=== PATIENT | female | born 1950 | race Caucasian/White ===

== ENCOUNTER 2018-04-15 01:10 | Outpatient (CLI) | payer MEDICARE, SELFPAY ==
--- NOTE | 2018-04-15 10:35 | MERGE_ITS ---
*[facility]* *[facility]* [address] [place] [address] Date of study: 04/15/2018 Transthoracic Echocardiography M-mode, complete 2D, complete spectral Doppler, and color Doppler *STUDY CONCLUSIONS* Summary: 1. Left ventricle: The cavity size was normal. Systolic function was normal. The estimated ejection fraction was 55-60%. 2. Aortic valve: There was mild regurgitation. 3. Mitral valve: There was mild regurgitation. 4. Right ventricle: The cavity size was normal. Wall thickness was normal. Systolic function was normal. 5. Atrial septum: No defect or patent foramen ovale was identified. 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 Significant septal excursion. 6. Pulmonary arteries: The main pulmonary artery was normal-sized. Pulmonary systolic pressure was in the range of 20mm Hg to 30mm Hg. 7. Probable patent ductus arteriosus: Small. Shunt flow was left to right. 8. Inferior vena cava: The vessel was stenotic and normal in size. The respirophasic diameter changes were in the normal range (greater than or equal to 50%), consistent with normal central venous pressure. *PATIENT PRESENTATION* Height: 149.9cm ((59in) ) S/D Pressure: 111 / 61 Weight: 46kg ((101.2lb) ) BSA: 1.39m^2 Test start time: 10:40 AM. Test stop time: 11:30 AM. ORDERING Mehran Mathis MD REFERRING Mehran Mathis MD PERFORMING Unknown PERFORMING [facility] TESTER/LIFT TRUCKER RT Lora (R)(CT), [facility] REFERRING Darrin Ferrara *PROCEDURE DATA* Procedure information: The patient was identified by two identifiers. This study was interpreted by [facility]. Pertinent images and digital data are archived for permanent storage and are available for subsequent review. No prior study was available for comparison. Study status: Routine. Transthoracic echocardiography. M-mode, complete 2D, complete spectral Doppler, and color Doppler. A Transthoracic Echocardiogram was performed. Scanning was performed from the parasternal, apical, subcostal, and suprasternal notch acoustic windows. Images were obtained using an [id number] cardiac ultrasound machine. Image quality was good. Study completion: The patient tolerated the procedure well. History: PMH: Small patent ductus arteriosus. *CARDIAC ANATOMY* Left ventricle: The cavity size was normal. Systolic function was normal. The estimated ejection fraction was 55-60%. The tissue Doppler parameters were normal. Diastolic parameters were normal. There was no evidence of elevated ventricular filling pressure by Doppler parameters. Aortic valve: Trileaflet. Doppler: There was no stenosis. There was mild regurgitation. VTI ratio of LVOT to aortic valve: 0.67. Valve area (VTI): 2.1cm^2. Indexed valve area (VTI): 1.5cm^2/m^2. Peak velocity ratio of LVOT to aortic valve: 0.69. Valve area (Vmax): 2.1cm^2. Indexed valve area (Vmax): 1.5cm^2/m^2. Mean velocity ratio of LVOT to aortic valve: 0.67. Valve area (Vmean): 2.1cm^2. Indexed valve area (Vmean): 1.5cm^2/m^2. Mean gradient (S): 3.2mm Hg. Peak gradient (S): 5.9mm Hg. Aorta: Aortic root: The aortic root was at upper normal limits. Ascending aorta: The ascending aorta was normal in size. Mitral valve: Doppler: There was no evidence for stenosis. There was mild regurgitation. Valve area by pressure half-time: 2.7cm^2. Indexed valve area by pressure half-time: 2cm^2/m^2. Left atrium: The atrium was normal in size. Atrial septum: No defect or patent foramen ovale was identified. 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 Significant septal excursion. Right ventricle: The cavity size was normal. Wall thickness was normal. Systolic function was normal. Pulmonic valve: Doppler: There was no evidence for stenosis. There was mild regurgitation. Peak gradient (S): 2.3mm Hg. Tricuspid valve: Doppler: There was mild regurgitation. Pulmonary artery: The main pulmonary artery was normal-sized. Pulmonary systolic pressure was in the range of 20mm Hg to 30mm Hg. Probable patent ductus arteriosus: Small. Shunt flow was left to right. Right atrium: The atrium was normal in size. Pericardium: There was no pericardial effusion. Systemic veins: Inferior vena cava: Well visualized. The vessel was stenotic and normal in size. The respirophasic diameter changes were in the normal range (greater than or equal to 50%), consistent with normal central venous pressure. Baseline ECG: Normal sinus rhythm. Measurements Left ventricle Value Reference LV ID, ED, PLAX 4.2 cm 3.5 - 6.0 LV ID, ES, PLAX 3.0 cm 2.1 - 4.0 LV PW thickness, ED, PLAX 0.7 cm LV end-diastolic volume, 1-p A2C 47 ml LV ejection fraction, 1-p A2C 53 % LV end-diastolic volume, 1-p A4C 46 ml LV ejection fraction, 1-p A4C 58 % LV e', lateral 0.135 m/sec LV E/e', lateral 5 LV e', medial 0.057 m/sec LV E/e', medial 11 LV e', average 0.096 m/sec LV E/e', average 7 Ventricular septum Value Reference IVS thickness, ED, PLAX 0.7 cm LVOT Value Reference LVOT ID, A-P 2.0 cm LVOT area 3.1 cm^2 LVOT peak velocity, S 0.83 m/sec LVOT mean velocity, S 0.57 m/sec LVOT VTI, S 17.4 cm LVOT peak gradient, S 2.8 mm Hg LVOT mean gradient, S 1.5 mm Hg Stroke volume (SV), LVOT DP 54 ml Stroke index (SV/bsa), LVOT DP 39 ml/m^2 Aortic valve Value Reference Aortic valve peak velocity, S 1.2 m/sec Aortic valve mean velocity, S 0.85 m/sec Aortic valve VTI, S 26.0 cm Aortic mean gradient, S 3.2 mm Hg Aortic peak gradient, S 5.9 mm Hg VTI ratio, LVOT/AV 0.67 Aortic valve area, VTI 2.1 cm^2 Velocity ratio, peak, LVOT/AV 0.69 Aortic valve area, peak velocity 2.1 cm^2 Velocity ratio, mean, LVOT/AV 0.67 Aortic valve area, mean velocity 2.1 cm^2 Aortic valve area/bsa, mean velocity 1.5 cm^2/m^2 Aorta Value Reference Aortic root ID, ED 3.1 cm Ascending aorta ID, A-P, S 2.9 cm RVOT Value Reference RVOT VTI, S 13.9 cm Left atrium Value Reference LA ID, A-P, ES 2.2 cm LA ID/bsa, A-P 1.6 cm/m^2 <=2.2 LA area, ES, A4C 13.9 cm^2 8.8 - 23.4 LA area, ES, A2C 15 cm^2 LA volume/bsa, ES, 1-p A4C 26 ml/m^2 LA volume, ES, 2-p 36 ml LA volume/bsa, ES, 2-p 26 ml/m^2 LA/aortic root ratio 0.69 Mitral valve Value Reference Mitral E-wave peak velocity 0.64 m/sec Mitral A-wave peak velocity 0.85 m/sec Mitral deceleration time (H) 278 ms 150 - 230 Mitral pressure half-time 81 ms Mitral E/A ratio, peak 0.75 Mitral valve area, PHT, DP 2.7 cm^2 Pulmonary veins Value Reference Pulmonary vein peak velocity, S 0.52 m/sec Pulmonary vein peak velocity, D 0.3 m/sec Pulmonary vein velocity ratio, peak, 1.71 S/D Pulmonary vein A-wave reversal peak 0.98 m/sec velocity Tricuspid valve Value Reference Tricuspid regurg peak velocity 2.3 m/sec Tricuspid peak RV-RA gradient 20.8 mm Hg Right atrium Value Reference RA area, ES, A4C 9.6 cm^2 8.3 - 19.5 Pulmonic valve Value Reference Pulmonic peak gradient, S 2.3 mm Hg Legend: (L) and (H) drake values outside specified reference range. I have personally reviewed the images and have reviewed and edited the reported findings. Electronically signed by Billy Del Castillo MD 04/15/2018 14:20
== END 2018-04-15 01:11 ==
PROVIDERS: PCP Physician Assistant Medical; Visit Provider Internal Medicine
DX: R06.02 Shortness of breath (principal); Q25.0 Patent ductus arteriosus; I08.0 Rheumatic disorders of both mitral and aortic valves; I25.3 Aneurysm of heart
CPT/HCPCS: 93306

== ENCOUNTER 2018-05-07 09:02 | Outpatient (CLI) | payer MEDICARE, MEDICAID, SELFPAY ==
[2018-05-07 10:35] LABS: Absolute Basophil Count 0.04 k/cumm (0.0-0.2); Absolute Eosinophil Count 0.41 k/cumm (0.0-0.7); Absolute Lymphocyte Count 1.84 k/cumm (1.2-3.4); Absolute Monocyte Count 0.35 k/cumm (0.11-0.7); Absolute Neutrophil Count 2.19 k/cumm (1.2-6.7); Basophils % 0.8; Eosinophils % 8.5; HCT 41.1 % (36.0-46.0); Lymphocytes % 38.1; Mean Corp. HGB Concentration 31.6 g/dL (32.0-36.0); Mean Corpuscular Hemoglobin 27.8 pg (27.0-33.0); Mean Corpuscular Volume 87.8 fL (80-95); Mean Platelet Volume 9.1 fL (8.0-11.0); Monocytes % 7.2; Neutrophils % 45.4; Platelet Count 213 x1000/uL (130-400); RBC 4.68 m/cumm (4.00-5.20); RBC Distribution Width 14.2 % (11.7-14.6); White Blood Cell Count 4.83 k/cumm (4.4-10.8)
[2018-05-08 10:23] LABS: IgG 1212 mg/dL (610-1616)
[2018-05-08 11:06] LABS: IgE 10 IU/ml (<158)
== END 2018-05-07 09:22 ==
PROVIDERS: PCP Physician Assistant Medical; Visit Provider Internal Medicine Pulmonary Disease
DX: J18.9 Pneumonia, unspecified organism (principal)
CPT/HCPCS: 36415; 82784; 82785; 85025

== ENCOUNTER 2018-10-04 19:33 | Emergency (ER) | payer MEDICARE, SELFPAY ==
[2018-10-04] VITALS (11 sets, daily range): BP systolic 127–140; BP diastolic 60–79; PULSE 79–97; RESP 13–24; TEMP 37.1; O2SAT 87–99
--- NOTE | 2018-10-04 19:35 | DI.RAD_ITS ---
SYMPTOM/DIAGNOSIS: SOB FRONTAL AND LATERAL CHEST: Comparison is made with 04/03/18. The heart size and pulmonary vasculature are within normal limits. There is diffuse chronic pulmonary fibrotic change noted. No findings to suggest a superimposed pneumonia or congestive heart failure are seen. No effusions or pneumothoraces are identified. There are again seen surgical clips in the upper abdomen. Degenerative changes are seen in the spine. IMPRESSION: No acute pulmonary process.
[2018-10-04] MEDS: traMADol 50 MG TAB 100 MG PO (20:42)
[2018-10-04] MEDS: Ketorolac 30 MG/ML VIAL 15 MG IVP (20:42)
[2018-10-04] MEDS: methylPREDNISolone SUCC 125 MG VIAL IVP (20:42)
[2018-10-04] MEDS: Albuterol/Ipratropium 3 ML UPD VIAL UPD (20:42)
[2018-10-04 20:44] LABS: BE (Venous) 6.1 mmol/L (-3-3); HCO3 (Venous) 31 mmol/L (22-28); O2 Sat (Venous) 33 % (70-80); TCO2 (Venous) 29 mmol/L (22-29); pCO2 (Venous) 53 mm/Hg (34-47); pH (Venous) 7.38 (7.32-7.43); pO2 (Venous) 21 mm/Hg (28-44)
--- NOTE | 2018-10-04 20:58 | W.ED.GENAD ---
Discharge Plan Disposition Patient Disposition: [facility] Condition: Good Discharge Details Chief Complaint: RespSymp Clinical Impression: Chest pain, Pulmonary fibrosis Primary Care Provider: Chloe Barrett ED Provider: Melquiades Rogers Home Meds and New Rx's Prescriptions: No Action tramadol 50 MG tablet 100 mg PO TID RF: 0 ProAir HFA 8.5 GM HFA aerosol inhaler 2 puff Inhalation Q4H PRN PRN (Reason: wheezing/dyspnea) Qty: 1 RF: 0 benzonatate 100 MG capsule 100 mg PO TID PRNQty: 30 RF: 1 Medical Decision Making This is a 68-year-old female with a past medical history of gastric bypass surgery, secondhand smoke, who presents today for evaluation of pleuritic chest pain, cough, and shortness of breath. Cough is been present for the last for 4 days, no evidence of hemoptysis, she does have productive green sputum. Her chest pain started 1 hour ago with associated shortness of breath and pleuritic chest pain. It is not exertional. She feels like there is a white like pressure on her chest. Interestingly though vital signs are very normal, and physical exam is relatively benign. No focal reproducible chest pain. No radiation of the arms or neck. EKG shows no significant changes however there is minimal ST elevation in V1 and V2 she does appear to be present on prior EKG, however there may be slight increase on today's EKG. With the patients typical clinical history, we will get a CT angiogram to rule out dissection versus PE. We will evaluate for pneumonia, formal laboratory workup and reassess. We will also treat for a mild reactive airway exacerbation with Solu-Medrol and breathing treatments. 1 AM Chest x-ray has returned shows no evidence of acute process, there is some interstitial and reticular opacities but no other significant abnormalities. Out of concern with the patient's persistent symptoms, her notable pleuritic chest pain, and her clinical symptomatology I did get a CT angiogram to rule out PE or dissection. CT angiogram results have returned and demonstrates no acute process, no evidence of PE, acute pneumonia, or dissection. There are chronic reticular opacities noted, however in discussion with the radiologist this is a chronic etiology with no acute infectious component. After breathing treatment and Solu-Medrol the patient had minimal improvement of her symptoms. We then elected to give her a nitroglycerin this completely resolved her symptoms of chest pain, chest heaviness, and significant pleuritic chest pain. This certainly does increase the differential for a cardiac etiology for her symptoms. Esophageal spasm is possible but I feel slightly less likely. Cardiac risk factors for the patient do include notable secondhand smoking, she does appear to have undiagnosed hypertension, which denies a history of high cholesterol or diabetes. Her history is also positive for cardiac disease. A repeat troponin and EKG were both performed at the 4-hour drake, and troponin is normal, EKG continues to show slight biphasic component in V2, does not appear typical of Wellons. I did contact [facility] cardiology, Dr. Daily, and discussed the case with him. He personally reviewed the EKG findings and we discussed the entirety of the patient's laboratory workup. He feels that the patient would certainly benefit from serial troponins, and provocative stress testing. I contacted him since we do not have any beds here, however unfortunately he states that [facility] is unable to accept this patient for serial troponins at this time. He does recommend aspirin, and prompt contact if her troponins change or her chest pain status changes. 1: 20 a.m. So far we have contacted [facility], [facility], [facility], [facility], and [facility], none of which are able or willing to accept the patient at this time. Family lives in [place] and is requesting something closer to [facility] and [facility]. will recheck to [facility] and [place]. 1:37 AM Discussed the case with Dr. Naidu at [facility], he graciously accepted the patient for admission. Patient will be sent via [facility] to [place]. Through shared decision making process we have agreed to hold off on the heparin for the time being, she is chest pain-free, with 2- troponins. I have extensively reviewed the treatment plan with the patient. I have addressed all patient concerns at this time. I have also discussed the plan with the admitting physician and they agree with the current assessment and plan and have agreed to assume responsibility for the patient. All parties demonstrate verbal understanding and agreement with our assessment and plan at this time. EKG 20: 23 Rate 79, intervals normal, sinus rhythm, minimal 1 mm elevation in V1 and V2, no Q waves, no T wave inversion, no evidence of STEMI or ST depressions. Prior EKG from 04/03/18 demonstrates similar findings. EKG 00: 14 Rate 74, intervals normal, sinus rhythm, persistent [address] elevation present in V1 and V2, T wave in V2 and V3 no appear to be mildly biphasic. No evidence of deep inversions suggestive of Wellen syndrome. Potassium is normal and I doubt U wave. No Q waves, no T wave inversions. CXR Findings: Lungs: Redemonstration of prominent interstitial/reticular opacities most compatible with chronic interstitial lung disease. No evidence of pneumonia, pulmonary vascular congestion, or pulmonary edema. Pleural space: No pneumothorax. No sizable pleural effusion. Heart/Mediastinum: No cardiomegaly. Upper abdomen: Surgical clips in the left upper quadrant of the abdomen. Cholecystectomy. Bones/joints: Unremarkable. Impression: Redemonstration of prominent interstitial/reticular opacities most compatible with chronic interstitial lung disease. No evidence of pneumonia, pulmonary vascular congestion, or pulmonary edema. Dictated and Authenticated by: Jemal Pitt MD. CTA Chest FINDINGS: Pulmonary arteries: No acute pulmonary embolus. Aorta: No aortic aneurysm. No aortic dissection. Lungs: Diffuse subpleural interstitial densities and intralobular septal thickening . There are also reticular opacities and small nodules peripherally. Pleural space: Normal. No pneumothorax. No pleural effusion. Heart: No cardiomegaly. No pericardial effusion. Lymph nodes: Unremarkable. No enlarged lymph nodes. Bones/joints: Unremarkable. No acute fracture. Soft tissues: Unremarkable. IMPRESSION: No acute pulmonary embolus. Dictated and Authenticated by: Jemal Pitt MD. ECHO Date of study: 04/15/2018 Transthoracic Echocardiography M-mode, complete 2D, complete spectral Doppler, and color Doppler *STUDY CONCLUSIONS* Summary: 1. Left ventricle: The cavity size was normal. Systolic function was normal. The estimated ejection fraction was 55-60%. 2. Aortic valve: There was mild regurgitation. 3. Mitral valve: There was mild regurgitation. 4. Right ventricle: The cavity size was normal. Wall thickness was normal. Systolic function was normal. 5. Atrial septum: No defect or patent foramen ovale was identified. 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 Significant septal excursion. 6. Pulmonary arteries: The main pulmonary artery was normal-sized. Pulmonary systolic pressure was in the range of 20mm Hg to 30mm Hg. 7. Probable patent ductus arteriosus: Small. Shunt flow was left to right. 8. Inferior vena cava: The vessel was stenotic and normal in size. The respirophasic diameter changes were in the normal range (greater than or equal to 50%), consistent with normal central venous pressure. HPI General Date/Time Provider Initiated Documentation: 10/04/18 19:35. HPI Narrative: This is a 68-year-old female with a past medical history of reactive airway disease, gastric bypass surgery, notable secondhand smoke exposure, who presents today for evaluation of chest pain, shortness of breath, pleuritic chest pain, and cough for the last 4 days with productive green sputum. Shortness of breath and pleuritic chest pain all started 1 hour ago. She denies any hemoptysis with a cough. She denies any exertional component to her chest pain. She does state that she feels like there is a heavy weight on her chest. She denies any history of cardiac disease. She denies any history of PE. Denies PE risk factors such as recent long car rides, immobilization, recent surgery, prior history of DVT or PE, family history of PE or DVT, morbid obesity, exogenous estrogen and smoking, hemoptysis, history of cancer. The patient does have nebulizer at home but she has not taken this. Patient does admit to mild achiness throughout as well as very mild headache, but has not yet taken her tramadol for the night. The patient denies any headache red flags of worst headache of life, thunderclap headache, neck pain, fever, chills, concerning family history of polycystic kidney disease, Marfan syndrome, Isma-Danlos syndrome, abdominal aortic aneurysm, aortic dissection, or intracranial aneurysm. Patient has no other complaints at this time. No other modifying factors. Review of systems is negative for vomiting, diarrhea, rash, fever, chills, numbness, tingling, weakness, vision changes. Related Data Home Medications Medication Instructions Recorded Confirmed tramadol 100 mg PO TID 03/28/17 10/04/18 ProAir HFA 2 puff INHALATION Q4H PRN PRN #1 10/02/17 10/04/18 hfa.aer.ad benzonatate 100 mg PO TID PRN #30 capsule 04/04/18 10/04/18 Previous Rx's Medication Instructions Recorded ProAir HFA 2 puff INHALATION Q4H PRN PRN #1 10/02/17 hfa.aer.ad benzonatate 100 mg PO TID PRN #30 capsule 04/04/18 Allergies Allergy/AdvReac Type Severity Reaction Status Date / Time Sulfa (Sulfonamide Allergy Severe throat Unverified 04/03/18 15:19 Antibiotics) swelling/can't breath General Stated Complaint: RespSymp JAMIE: 3 Review of Systems Review of Systems All systems reviewed & are unremarkable except as noted in HPI and below PFSH Social History Smoking and Tabacco status: Never Exam Narrative Exam Narrative: 1.Const: Well-nourished, Well-developed, appearing stated age 2.Eyes: PERRL, no conjunctival injection, and symmetrical lids. 3.ENT: Atraumatic external nose and ears. Moist MM. Neck: Symmetric, trachea midline, No thyromegaly. 4.CVS: +S1/S2, No murmurs or gallops. Peripheral pulses 2+ and equal in all extremities. Brisk capillary refill in all extremities. 5.RESP: Unlabored respiratory effort. Clear to auscultation bilaterally. No wheezes rales or rhonchi. Notable pain with inspiration 6.GI: Soft, Nontender/Nondistended, No hepatosplenomegaly. No guarding or rebound. 7.MSK: Normocephalic/Atraumatic, Extremities w/o deformity or ttp No cyanosis or clubbing, Normal movement of all extremities, no significant calf tenderness. No pitting edema. 8.Skin: Warm, Dry. No rashes or lesions. 9.Neuro: personal trainer II-XII grossly intact. Sensation grossly intact, no focal neurologic deficits. 10.Psych: (AAO) x3. Appropriate mood and affect Course Vital Signs Temperature 37.1 C 10/04/18 19:35 Pulse 79 10/04/18 19:35 Respiratory Rate 18 10/04/18 19:35 Blood Pressure 140/64 10/04/18 19:35 Pulse Oximetry 99 10/04/18 19:35 Temperature 37.1 C 10/04/18 19:35 Temperature Source Temporal Artery Scan 10/04/18 19:35 Pulse 79 10/04/18 19:35 Respiratory Rate 18 10/04/18 19:35 Respiratory Effort 10/04/18 19:38 Respiratory Depth Normal 10/04/18 19:38 Blood Pressure 140/64 10/04/18 19:35 Blood Pressure Position Sitting 10/04/18 19:35 Pulse Oximetry 99 10/04/18 19:35 Oxygen Delivery Method Room Air 10/04/18 19:35 Oxygen Flow Rate 0 10/04/18 19:35 Lab/Test Results Lab/Test Results: 10/04/18 19:38 Nasopharynx Influenza Types A,B Antigen - Final Laboratory Tests Range/Units 10/04/18 20:35 VBG pH (7.32-7.43) 7.38 VBG pCO2 (34-47) mm/Hg 53 H VBG pO2 (28-44) mm/Hg 21 L VBG HCO3 (22-28) mmol/L 31 H VBG Total CO2 (22-29) mmol/L 29 VBG O2 Saturation (70-80) % 33 L VBG Base Excess (-3-3) mmol/L 6.1 H
--- NOTE | 2018-10-04 21:01 | ED.GENADUL_ITS ---
Discharge Plan Disposition Patient Disposition: [facility] Condition: Good Discharge Details Chief Complaint: RespSymp Clinical Impression: Chest pain, Pulmonary fibrosis Primary Care Provider: Chloe Barrett ED Provider: Melquiades Rogers Home Meds and New Rx's Prescriptions: No Action tramadol 50 MG tablet 100 mg PO TID RF: 0 ProAir HFA 8.5 GM HFA aerosol inhaler 2 puff Inhalation Q4H PRN PRN (Reason: wheezing/dyspnea) Qty: 1 RF: 0 benzonatate 100 MG capsule 100 mg PO TID PRNQty: 30 RF: 1 Medical Decision Making This is a 68-year-old female with a past medical history of gastric bypass surgery, secondhand smoke, who presents today for evaluation of pleuritic chest pain, cough, and shortness of breath. Cough is been present for the last for 4 days, no evidence of hemoptysis, she does have productive green sputum. Her chest pain started 1 hour ago with associated shortness of breath and pleuritic chest pain. It is not exertional. She feels like there is a white like pressure on her chest. Interestingly though vital signs are very normal, and physical exam is relatively benign. No focal reproducible chest pain. No radiation of the arms or neck. EKG shows no significant changes however there is minimal ST elevation in V1 and V2 she does appear to be present on prior EKG, however there may be slight increase on today's EKG. With the patients typical clinical history, we will get a CT angiogram to rule out dissection versus PE. We will evaluate for pneumonia, formal laboratory workup and reassess. We will also treat for a mild reactive airway exacerbation with Solu-Medrol and breathing treatments. 1 AM Chest x-ray has returned shows no evidence of acute process, there is some interstitial and reticular opacities but no other significant abnormalities. Out of concern with the patient's persistent symptoms, her notable pleuritic chest pain, and her clinical symptomatology I did get a CT angiogram to rule out PE or dissection. CT angiogram results have returned and demonstrates no acute process, no evidence of PE, acute pneumonia, or dissection. There are chronic reticular opacities noted, however in discussion with the radiologist this is a chronic etiology with no acute infectious component. After breathing treatment and Solu-Medrol the patient had minimal improvement of her symptoms. We then elected to give her a nitroglycerin this completely resolved her symptoms of chest pain, chest heaviness, and significant pleuritic chest pain. This certainly does increase the differential for a cardiac etiology for her symptoms. Esophageal spasm is possible but I feel slightly less likely. Cardiac risk factors for the patient do include notable secondhand smoking, she does appear to have undiagnosed hypertension, which denies a history of high cholesterol or diabetes. Her history is also positive for cardiac disease. A repeat troponin and EKG were both performed at the 4-hour drake, and troponin is normal, EKG continues to show slight biphasic component in V2, does not appear typical of Wellons. I did contact [facility] cardiology, Dr. Daily, and discussed the case with him. He personally reviewed the EKG findings and we discussed the entirety of the patient's laboratory workup. He feels that the patient would certainly benefit from serial troponins, and provocative stress testing. I contacted him since we do not have any beds here, however unfortunately he states that [facility] is unable to accept this patient for serial troponins at this time. He does recommend aspirin, and prompt contact if her troponins change or her chest pain status changes. 1: 20 a.m. So far we have contacted [facility], [facility], [facility], [facility], and [facility], none of which are able or willing to accept the patient at this time. Family lives in [place] and is requesting something closer to [facility] and [facility] [place]. will recheck to [facility] and [facility]. 1:37 AM Discussed the case with Dr. Naidu at [facility], he graciously accepted the patient for admission. Patient will be sent via [facility] to [facility]. Through shared decision making process we have agreed to hold off on the heparin for the time being, she is chest pain-free, with 2- troponins. I have extensively reviewed the treatment plan with the patient. I have addressed all patient concerns at this time. I have also discussed the plan with the admitting physician and they agree with the current assessment and plan and have agreed to assume responsibility for the patient. All parties demonstrate verbal understanding and agreement with our assessment and plan at this time. EKG 20: 23 Rate 79, intervals normal, sinus rhythm, minimal 1 mm elevation in V1 and V2, no Q waves, no T wave inversion, no evidence of STEMI or ST depressions. Prior EKG from 04/03/18 demonstrates similar findings. EKG 00: 14 Rate 74, intervals normal, sinus rhythm, persistent [address] elevation present in V1 and V2, T wave in V2 and V3 no appear to be mildly biphasic. No evidence of deep inversions suggestive of Wellen syndrome. Potassium is normal and I doubt U wave. No Q waves, no T wave inversions. CXR Findings: Lungs: Redemonstration of prominent interstitial/reticular opacities most compatible with chronic interstitial lung disease. No evidence of pneumonia, pulmonary vascular congestion, or pulmonary edema. Pleural space: No pneumothorax. No sizable pleural effusion. Heart/Mediastinum: No cardiomegaly. Upper abdomen: Surgical clips in the left upper quadrant of the abdomen. Cholecystectomy. Bones/joints: Unremarkable. Impression: Redemonstration of prominent interstitial/reticular opacities most compatible with chronic interstitial lung disease. No evidence of pneumonia, pulmonary vascular congestion, or pulmonary edema. Dictated and Authenticated by: Jemal Pitt MD. CTA Chest FINDINGS: Pulmonary arteries: No acute pulmonary embolus. Aorta: No aortic aneurysm. No aortic dissection. Lungs: Diffuse subpleural interstitial densities and intralobular septal thickening . There are also reticular opacities and small nodules peripherally. Pleural space: Normal. No pneumothorax. No pleural effusion. Heart: No cardiomegaly. No pericardial effusion. Lymph nodes: Unremarkable. No enlarged lymph nodes. Bones/joints: Unremarkable. No acute fracture. Soft tissues: Unremarkable. IMPRESSION: No acute pulmonary embolus. Dictated and Authenticated by: Jeaml Pitt MD. ECHO Date of study: 04/15/2018 Transthoracic Echocardiography M-mode, complete 2D, complete spectral Doppler, and color Doppler *STUDY CONCLUSIONS* Summary: 1. Left ventricle: The cavity size was normal. Systolic function was normal. The estimated ejection fraction was 55-60%. 2. Aortic valve: There was mild regurgitation. 3. Mitral valve: There was mild regurgitation. 4. Right ventricle: The cavity size was normal. Wall thickness was normal. Systolic function was normal. 5. Atrial septum: No defect or patent foramen ovale was identified. 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 Significant septal excursion. 6. Pulmonary arteries: The main pulmonary artery was normal-sized. Pulmonary systolic pressure was in the range of 20mm Hg to 30mm Hg. 7. Probable patent ductus arteriosus: Small. Shunt flow was left to right. 8. Inferior vena cava: The vessel was stenotic and normal in size. The respirophasic diameter changes were in the normal range (greater than or equal to 50%), consistent with normal central venous pressure. HPI General Date/Time Provider Initiated Documentation: 10/04/18 19:35 . HPI Narrative: This is a 68-year-old female with a past medical history of reactive airway disease, gastric bypass surgery, notable secondhand smoke exposure, who presents today for evaluation of chest pain, shortness of breath, pleuritic chest pain, and cough for the last 4 days with productive green sputum. Shortness of breath and pleuritic chest pain all started 1 hour ago. She denies any hemoptysis with a cough. She denies any exertional component to her chest pain. She does state that she feels like there is a heavy weight on her chest. She denies any history of cardiac disease. She denies any history of PE. Denies PE risk factors such as recent long car rides, immobilization, recent surgery, prior history of DVT or PE, family history of PE or DVT, morbid obesity, exogenous estrogen and smoking, hemoptysis, history of cancer. The patient does have nebulizer at home but she has not taken this. Patient does admit to mild achiness throughout as well as very mild headache, but has not yet taken her tramadol for the night. The patient denies any headache red flags of worst headache of life, thunderclap headache, neck pain, fever, chills, concerning family history of polycystic kidney disease, Marfan syndrome, Isma- Danlos syndrome, abdominal aortic aneurysm, aortic dissection, or intracranial aneurysm. Patient has no other complaints at this time. No other modifying factors. Review of systems is negative for vomiting, diarrhea, rash, fever, chills, numbness, tingling, weakness, vision changes. Related Data Home Medications Medication Instructions Recorded Confirmed tramadol 100 mg PO TID 03/28/17 10/04/18 ProAir HFA 2 puff INHALATION Q4H PRN PRN #1 10/02/17 10/04/18 [email or web address] benzonatate 100 mg PO TID PRN #30 capsule 04/04/18 10/04/18 Previous Rx's Medication Instructions Recorded ProAir HFA 2 puff INHALATION Q4H PRN PRN #1 10/02/17 [email or web address] benzonatate 100 mg PO TID PRN #30 capsule 04/04/18 Allergies Allergy/AdvReac Type Severity Reaction Status Date / Time Sulfa (Sulfonamide Allergy Severe throat Unverified 04/03/18 15:19 Antibiotics) swelling/can't breath General Stated Complaint: RespSymp JAMIE: 3 Review of Systems Review of Systems All systems reviewed & are unremarkable except as noted in HPI and below PFSH Social History Smoking and Tabacco status: Never Exam Narrative Exam Narrative: 1.Const: Well-nourished, Well-developed, appearing stated age 2.Eyes: PERRL, no conjunctival injection, and symmetrical lids. 3.ENT: Atraumatic external nose and ears. Moist MM. Neck: Symmetric, trachea midline, No thyromegaly. 4.CVS: +S1/S2, No murmurs or gallops. Peripheral pulses 2+ and equal in all extremities. Brisk capillary refill in all extremities. 5.RESP: Unlabored respiratory effort. Clear to auscultation bilaterally. No wheezes rales or rhonchi. Notable pain with inspiration 6.GI: Soft, Nontender/Nondistended, No hepatosplenomegaly. No guarding or rebound. 7.MSK: Normocephalic/Atraumatic, Extremities w/o deformity or ttp No cyanosis or clubbing, Normal movement of all extremities, no significant calf tenderness. No pitting edema. 8.Skin: Warm, Dry. No rashes or lesions. 9.Neuro: preassembler and inspector II-XII grossly intact. Sensation grossly intact, no focal neurologic deficits. 10.Psych: (AAO) x3. Appropriate mood and affect Course Vital Signs Temperature 37.1 C 10/04/18 19:35 Pulse 79 10/04/18 19:35 Respiratory Rate 18 10/04/18 19:35 Blood Pressure 140/64 10/04/18 19:35 Pulse Oximetry 99 10/04/18 19:35 Temperature 37.1 C 10/04/18 19:35 Temperature Source Temporal Artery Scan 10/04/18 19:35 Pulse 79 10/04/18 19:35 Respiratory Rate 18 10/04/18 19:35 Respiratory Effort 10/04/18 19:38 Respiratory Depth Normal 10/04/18 19:38 Blood Pressure 140/64 10/04/18 19:35 Blood Pressure Position Sitting 10/04/18 19:35 Pulse Oximetry 99 10/04/18 19:35 Oxygen Delivery Method Room Air 10/04/18 19:35 Oxygen Flow Rate 0 10/04/18 19:35 Lab/Test Results Lab/Test Results: 10/04/18 19:38 Nasopharynx Influenza Types A,B Antigen - Final Laboratory Tests Range/Units 10/04/18 20:35 VBG pH (7.32-7.43) 7.38 VBG pCO2 (34-47) mm/Hg 53 H VBG pO2 (28-44) mm/Hg 21 L VBG HCO3 (22-28) mmol/L 31 H VBG Total CO2 (22-29) mmol/L 29 VBG O2 Saturation (70-80) % 33 L VBG Base Excess (-3-3) mmol/L 6.1 H
[2018-10-04 21:07] LABS: ALT 20 U/L (12-78); AST 27 U/L (15-37); Albumin 3.7 g/dL (3.4-5.0); Alkaline Phosphatase 99 U/L (46-116); Anion Gap 7.9 mmol/L (3-11); BUN 10 mg/dL (7-18); Bilirubin, Total 0.3 mg/dL (0.2-1.0); CO2 30.1 mmol/L (21.0-32.0); Calcium 8.9 mg/dL (8.5-10.1); Chloride 102 mmol/L (98-107); Glucose 120 mg/dL (70-100); NT-proBNP 189 pg/mL; Potassium 3.5 mmol/L (3.5-5.1); Sodium 140 mmol/L (136-145); Total Protein 8.2 g/dL (6.4-8.2); Troponin I < 0.02 ng/mL (0.00-0.06)
--- NOTE | 2018-10-04 21:07 | DI.VRAD_ITS ---
EXAM: XR Chest, 2 Views EXAM DATE/TIME: 10/04/2018 7:35 PM CLINICAL HISTORY: 68 years old, female; Signs and symptoms; Shortness of breath; Patient HX: SOB TECHNIQUE: XR of the chest, 2 views. COMPARISON: CR CHEST 2 VIEWS PA,LAT 04/03/2018 4:13 PM FINDINGS: Lungs: Redemonstration of prominent interstitial/reticular opacities most compatible with chronic interstitial lung disease. No evidence of pneumonia, pulmonary vascular congestion, or pulmonary edema. Pleural space: No pneumothorax. No sizable pleural effusion. Heart/Mediastinum: No cardiomegaly. Upper abdomen: Surgical clips in the left upper quadrant of the abdomen. Cholecystectomy. Bones/joints: Unremarkable. IMPRESSION: Redemonstration of prominent interstitial/reticular opacities most compatible with chronic interstitial lung disease. No evidence of pneumonia, pulmonary vascular congestion, or pulmonary edema. Dictated and Authenticated by: Jemal Pitt MD. Ordering:GAYATHRI Elliott MD
[2018-10-04 21:22] LABS: Abs Immature Grans 0.01 k/cumm (0.0-0.09); Absolute Basophil Count 0.02 k/cumm (0.0-0.2); Absolute Lymphocyte Count 0.86 k/cumm (1.2-3.4); Absolute Monocyte Count 0.39 k/cumm (0.11-0.7); Absolute Neutrophil Count 2.85 k/cumm (1.2-6.7); Basophils % 0.5; Eosinophils % 2.4; HCT 45.8 % (36.0-46.0); HGB 14.7 g/dL (12.0-15.5); Immature Grans % 0.2; Lymphocytes % 20.3; Mean Corp. HGB Concentration 32.1 g/dL (32.0-36.0); Mean Corpuscular Hemoglobin 28.7 pg (27.0-33.0); Mean Corpuscular Volume 89.5 fL (80-95); Mean Platelet Volume 8.9 fL (8.0-11.0); Monocytes % 9.2; Neutrophils % 67.4; Platelet Count 191 x1000/uL (130-400); RBC 5.12 m/cumm (4.00-5.20); White Blood Cell Count 4.23 k/cumm (4.4-10.8)
[2018-10-04] MEDS: Omnipaque 350 MG/ML 100 ML BTL IJ (21:25)
[2018-10-04] MEDS: Normal Saline Flush 10 ML SYR IVP (21:26)
--- NOTE | 2018-10-04 21:30 | DI.CT_ITS ---
SYMPTOMS/DIAGNOSIS: PLEURITIC CHEST PAIN, SHORTNESS OF BREATH, CHEST PRESSURE PE CHEST CT: CT angiography was performed with multi slice acquisition and multi planar and 3D reconstruction. Routine examination. There is no evidence of a pulmonary embolus. The thoracic aorta is intact. No aneurysm or dissection. The heart size is within normal limits. No significant pericardial effusion. No evidence of right ventricular dysfunction. No significant thoracic adenopathy. No significant pleural effusion or pneumothorax. There is diffuse pulmonary fibrosis. The tracheobronchial tree is unremarkable. Degenerative changes are present throughout the spine. Surgical clips are seen in the upper abdomen. IMPRESSION: No evidence of a pulmonary embolus, thoracic aortic dissection or aneurysm.
--- NOTE | 2018-10-04 21:51 | DI.VRAD_ITS ---
EXAM: CT Angiography Chest With Contrast EXAM DATE/TIME: 10/04/2018 8:20 PM CLINICAL HISTORY: 68 years old, female; Pain and signs and symptoms; Shortness of breath; Chest pressure; Patient HX: Pleuritic cp. SOB. Chest pressure TECHNIQUE: Axial computed tomographic angiography images of the chest with intravenous contrast using CT angiography protocol. All CT scans at this facility use at least one of these dose optimization techniques: automated exposure control; mA and/or kV adjustment per patient size (includes targeted exams where dose is matched to clinical indication); or iterative reconstruction. Coronal and sagittal reformatted images were created and reviewed. MIP reconstructed images were created and reviewed. CONTRAST: 60 ml of omni 350 administered intravenously. COMPARISON: CT CHEST FOR PULMONARY EMBOLUS 10/01/2017 9:57 PM FINDINGS: Pulmonary arteries: No acute pulmonary embolus. Aorta: No aortic aneurysm. No aortic dissection. Lungs: Diffuse subpleural interstitial densities and intralobular septal thickening . There are also reticular opacities and small nodules peripherally. Pleural space: Normal. No pneumothorax. No pleural effusion. Heart: No cardiomegaly. No pericardial effusion. Lymph nodes: Unremarkable. No enlarged lymph nodes. Bones/joints: Unremarkable. No acute fracture. Soft tissues: Unremarkable. IMPRESSION: No acute pulmonary embolus. Dictated and Authenticated by: Jemal Pitt MD. Ordering:SUNNY Arnett MD
[2018-10-05 00:38] LABS: Troponin I < 0.02 ng/mL (0.00-0.06)
[2018-10-05] MEDS: Aspirin 325 MG TAB PO (01:15)
[2018-10-05 02:06] VITALS: BP 131/66; PULSE 88; RESP 18; TEMP 36.5; O2SAT 95
== END 2018-10-05 02:12 | disposition short-term general hospital (02) ==
PROVIDERS: Emergency Provider Student in an Organized Health Care Education/Training Program; PCP Physician Assistant Medical
DX: R07.81 Pleurodynia (principal); R06.02 Shortness of breath; R05 Cough; I10 Essential (primary) hypertension; Z77.22 Contact with and (suspected) exposure to environmental tobacco smoke (acute) (chronic)
CPT/HCPCS: 36415; 71275; 80053; 82805; 87449; 93005; 94640; 96374; 96375; 99285; 71046; 83880; 84484; 85025; 93010; J1885; J2930; J3490; J7620

== ENCOUNTER 2018-12-24 19:07 | Observation (INO) | payer MEDICARE, SELFPAY ==
[2018-12-24] VITALS (14 sets, daily range): BP systolic 117–141; BP diastolic 59–78; PULSE 66–75; RESP 18–20; TEMP 36.8; O2SAT 96–99
--- NOTE | 2018-12-24 20:17 | W.ED.GENAD ---
Discharge Plan Disposition Patient Disposition: [facility] INPATIENT Condition: Poor Discharge Details Chief Complaint: SOB Clinical Impression: Dyspnea, Pulmonary fibrosis Admit Date/Time: 12/25/18 00:33 Admit Provider: Mathew Lara Attending Provider: Mathew Lara Primary Care Provider: Chloe Barrett ED Provider: Lars aWtt Discharge Data Discharge Date/Time-TO BE ENTERED AT DEPARTURE: 12/25/18 02:05 Medical Decision Making Patient with normal saturations but quite tachypneic with any type of exertion including just walking to the room. I do not appreciate wheezing but do have significant crackles throughout consistent with her history of pulmonary fibrosis. She does report being told by her sailing master in the past that she does not have COPD. She has been on prednisone though. She is reporting gradual worsening of shortness of breath over the last week with fevers and cough. She is on Zithromax but not getting better. No x-ray was done. Will place IV and get laboratory studies. EKG was obtained from triage shows no acute ST changes. Will get chest x-ray. Will give a DuoNeb and dose of IV steroids. Patient does not think neb treatment helped at all. Patient's labs are unremarkable. She has no white count. Chemistries are fine. Troponin is negative. Chest x-ray per preliminary radiology read shows chronic interstitial fibrosis with possible right perihilar density suggesting infiltrate. Given her significant structural lung disease and lack of response to a azithromycin we will give a dose of Levaquin. Case discussed with hospitalist for admission. Patient accepted to hospitalist service for further work-up and management of worsening dyspnea in the setting of significant pulmonary fibrosis and possible infection. Medical Records Medical records reviewed: Yes I reviewed the patient's medical records. Lab Data Lab results reviewed: Yes I reviewed the patient's lab results. ECG Data Attestation: I personally reviewed and interpreted this ECG (s) as follows: Interpretation: Sinus rhythm at 70. Normal axis and intervals. No acute ST changes noted. HPI General Mode of arrival: ambulatory. Date/Time Provider Initiated Documentation: 12/24/18 19:57. Limitations to Documentation: no limitations. Information obtained by: patient, family and old records reviewed. HPI Narrative: Patient presents to ED for continued shortness of breath, low-grade fevers, cough. Patient reports since last week she has been unable to do her typical routine which includes walking the dogs as well as her walking with her granddaughter. She is now not even able to really do the dishes because of shortness of breath. She has had low-grade fevers to the 100 range at home. She has a cough productive of a greenish-white sputum. She does report a history of pulmonary fibrosis but denies having COPD or emphysema. She was seen by her primary care 2 days ago and started on a azithromycin. This is not helped at all. She denies having chest pain or pressure. She denies abdominal pain or GI complaints. She has chronic back pain which is unchanged. Family brought her in due to the worsening shortness of breath. Related Data Home Medications Medication Instructions Recorded Confirmed albuterol sulfate [ProAir HFA] 2 puff INHALATION Q4H PRN PRN #1 10/02/17 12/24/18 [email or web address].ad azithromycin 250 mg PO DAILY 12/24/18 12/24/18 tramadol 100 mg PO BID PRN 12/24/18 12/25/18 Previous Rx's Medication Instructions Recorded albuterol sulfate [ProAir HFA] 2 puff INHALATION Q4H PRN PRN #1 10/02/17 [email or web address].ad Allergies Allergy/AdvReac Type Severity Reaction Status Date / Time Sulfa (Sulfonamide Allergy Severe throat Unverified 12/25/18 02:36 Antibiotics) swelling/can't breath levofloxacin Allergy Intermediate Other (See Unverified 12/25/18 02:36 Comment) General Stated Complaint: SOB JAMIE: 3 Review of Systems Review of Systems 05/31 Review of Systems completed and is negative except as stated above in HPI (Systems reviewed: Const, Eyes, ENT, Resp, CV, GI, , MSK, Skin, Neuro) PFSH Medical History Pulmonary fibrosis (Chronic) Chronic back pain (Chronic) Surgical History S/P cholecystectomy (Resolved) S/P gastric bypass (Resolved) S/P hernia repair (Resolved) S/P hysterectomy (Resolved) Social History Smoking/Tobacco Use Status: Never Second Hand Exposure: Yes (Secondary to her parents as well as ) Alcohol Intake: never Drug use: Never Substance use type: does not use Household members: family and children 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 [employer] What type of physical activity do you participate in: walking Frequency: daily Do you feel safe at home: Yes Do you feel safe in your relationship?: Yes History History 4 Para Hx # Term Pregnancies 4 Multiple births Hx # Pregnancies Ectopic pregnancies AB induced Hx Number of Living Children AB spontaneous Exam Narrative Exam Narrative: Vitals: Afebrile. Mildly hypertensive. Normal pulse ox but significant tachypnea with exertion. Const: Thin female in NAD. HEENT: NC/AT. Normal facial exam. Eyes: Normal conjunctiva and sclera. Neck: Supple. Trachea midline. Lungs: Normal respiratory effort. Lungs without wheeze. Crackles throughout, worse at bases. Cor: RRR without murmur/gallop. Good radial pulses. GI: Soft. NT/ND. No guarding or rebound. Neuro: A+O x 3. CN grossly in tact. Good strength and no focal deficit. Ext: No C/C. Minimal non-pitting LE edema. No calf tenderness. Skin: Warm and dry without rash. Course Vital Signs Temperature 98.2 F 12/24/18 19:14 Pulse 68 12/24/18 19:14 Respiratory Rate 20 12/24/18 19:14 Blood Pressure 141/78 H 12/24/18 19:14 Pulse Oximetry 98 12/24/18 19:14 Temperature 98.2 F 12/24/18 19:14 Temperature Source Tympanic 12/24/18 19:14 Pulse 68 12/24/18 19:14 Respiratory Rate 20 12/24/18 19:14 Respiratory Effort 12/24/18 19:18 Blood Pressure 141/78 H 12/24/18 19:14 Blood Pressure Position Sitting 12/24/18 19:14 Pulse Oximetry 98 12/24/18 19:14 Oxygen Delivery Method Room Air 12/24/18 19:14 Oxygen Flow Rate 0 12/24/18 19:14
--- NOTE | 2018-12-24 20:20 | ED.GENADUL_ITS ---
Discharge Plan Disposition Patient Disposition: [facility] INPATIENT Condition: Poor Discharge Details Chief Complaint: SOB Clinical Impression: Dyspnea, Pulmonary fibrosis Admit Date/Time: 12/25/18 00:33 Admit Provider: Mathew Lara Attending Provider: Mathew Lara Primary Care Provider: Chloe Barrett ED Provider: Lars Watt Discharge Data Discharge Date/Time-TO BE ENTERED AT DEPARTURE: 12/25/18 02:05 Medical Decision Making Patient with normal saturations but quite tachypneic with any type of exertion including just walking to the room. I do not appreciate wheezing but do have significant crackles throughout consistent with her history of pulmonary fibrosis. She does report being told by her nps in the past that she does not have COPD. She has been on prednisone though. She is reporting gr adual worsening of shortness of breath over the last week with fevers and cough. She is on Zithromax but not getting better. No x-ray was done. Will place IV and get laboratory studies. EKG was obtained from triage shows no acute ST changes. Will get chest x-ray. Will give a DuoNeb and dose of IV steroids. Patient does not think neb treatment helped at all. Patient's labs are unremarkable. She has no white count. Chemistries are fine. Troponin is negative. Chest x-ray per preliminary radiology read shows chronic interstitial fibrosis with possible right perihilar density suggesting infiltrate. Given her significant structural lung disease and lack of response to a azithromycin we will give a dose of Levaquin. Case discussed with hospitalist for admission. Patient accepted to hospitalist service for further work-up and management of worsening dyspnea in the setting of significant pulmonary fibrosis and possible infection. Medical Records Medical records reviewed: Yes I reviewed the patient's medical records. Lab Data Lab results reviewed: Yes I reviewed the patient's lab results. ECG Data Attestation: I personally reviewed and interpreted this ECG (s) as follows: Interpretation: Sinus rhythm at 70. Normal axis and intervals. No acute ST changes noted. HPI General Mode of arrival: ambulatory . Date/Time Provider Initiated Documentation: 12/24/18 19:57 . Limitations to Documentation: no limitations . Information obtained by: patient, family and old records reviewed . HPI Narrative: Patient presents to ED for continued shortness of breath, low-grade fevers, cough. Patient reports since last week she has been unable to do her typical routine which includes walking the dogs as well as her walking with her granddaughter. She is now not even able to really do the dishes because of shortness of breath. She has had low-grade fevers to the 100 range at home. She has a cough productive of a greenish-white sputum. She does report a history of pulmonary fibrosis but denies having COPD or emphysema. She was seen by her primary care 2 days ago and started on a azithromycin. This is not h elped at all. She denies having chest pain or pressure. She denies abdominal pain or GI complaints. She has chronic back pain which is unchanged. Family brought her in due to the worsening shortness of breath. Related Data Home Medications Medication Instructions Recorded Confirmed albuterol sulfate [ProAir HFA] 2 puff INHALATION Q4H PRN PRN #1 10/02/17 12/24/18 [email or web address] azithromycin 250 mg PO DAILY 12/24/18 12/24/18 tramadol 100 mg PO BID PRN 12/24/18 12/25/18 Previous Rx's Medication Instructions Recorded albuterol sulfate [ProAir HFA] 2 puff INHALATION Q4H PRN PRN #1 10/02/17 [email or web address] Allergies Allergy/AdvReac Type Severity Reaction Status Date / Time Sulfa (Sulfonamide Allergy Severe throat Unverified 12/25/18 02:36 Antibiotics) swelling/can't breath levofloxacin Allergy Intermediate Other (See Unverified 12/25/18 02:36 Comment) General Stated Complaint: SOB JAMIE: 3 Review of Systems Review of Systems 05/31 Review of Systems completed and is negative except as stated above in HPI (Systems reviewed: Const, Eyes, ENT, Resp, CV, GI, , MSK, Skin, Neuro) PFSH Medical History Pulmonary fibrosis (Chronic) Chronic back pain (Chronic) Surgical History S/P cholecystectomy (Resolved) S/P gastric bypass (Resolved) S/P hernia repair (Resolved) S/P hysterectomy (Resolved) Social History Smoking/Tobacco Use Status: Never Second Hand Exposure: Yes (Secondary to her parents as well as ) Alcohol Intake: never Drug use: Never Substance use type: does not use Household members: family and children 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 Mildly hypertensive. Normal pulse ox but significant tachypnea with exertion. Const: Thin female in NAD. HEENT: NC/AT. Normal facial exam. Eyes: Normal conjunctiva and sclera. Neck: Supple. Trachea midline. Lungs: Normal respiratory effort. Lungs without wheeze. Crackles throughout, worse at bases. Cor: RRR without murmur/gallop. Good radial pulses. GI: Soft. NT/ND. No guarding or rebound. Neuro: A+O x 3. CN grossly in tact. Good strength and no focal deficit. Ext: No C/C. Minimal non-pitting LE edema. No calf tenderness. Skin: Warm and dry without rash. Course Vital Signs Temperature 98.2 F 12/24/18 19:14 Pulse 68 12/24/18 19:14 Respiratory Rate 12/24/18 19:14 Blood Pressure 141/78 H 12/24/18 19:14 Pulse Oximetry 98 12/24/18 19:14 Temperature 98.2 F 12/24/18 19:14 Temperature Source Tympanic 12/24/18 19:14 Pulse 68 12/24/18 19:14 Respiratory Rate 20 12/24/18 19:14 Respiratory Effort 12/24/18 19:18 Blood Pressure 141/78 H 12/24/18 19:14 Blood Pressure Position Sitting 12/24/18 19:14 Pulse Oximetry 98 12/24/18 19:14 Oxygen Delivery Method Room Air 12/24/18 19:14 Oxygen Flow Rate 0 12/24/18 19:14
[2018-12-24] MEDS: Sodium Chloride 0.9% for Inhalation 3 ML VIAL (20:54)
[2018-12-24] MEDS: Albuterol/Ipratropium 3 ML UPD VIAL UPD (20:54)
[2018-12-24] MEDS: methylPREDNISolone SUCC 125 MG VIAL IVP (20:54)
[2018-12-24 21:07] LABS: Abs Immature Grans 0.01 k/cumm (0.0-0.09); Absolute Basophil Count 0.02 k/cumm (0.0-0.2); Absolute Eosinophil Count 0.61 k/cumm (0.0-0.7); Absolute Lymphocyte Count 3.16 k/cumm (1.2-3.4); Absolute Monocyte Count 0.47 k/cumm (0.11-0.7); Absolute Neutrophil Count 2.02 k/cumm (1.2-6.7); Basophils % 0.3; Eosinophils % 9.7; HCT 36.3 % (36.0-46.0); HGB 11.9 g/dL (12.0-15.5); Immature Grans % 0.2; Lymphocytes % 50.2; Mean Corp. HGB Concentration 32.8 g/dL (32.0-36.0); Mean Corpuscular Hemoglobin 29.2 pg (27.0-33.0); Mean Platelet Volume 8.9 fL (8.0-11.0); Monocytes % 7.5; Neutrophils % 32.1; Platelet Count 195 x1000/uL (130-400); RBC 4.08 m/cumm (4.00-5.20); RBC Distribution Width 13.1 % (11.7-14.6); White Blood Cell Count 6.29 k/cumm (4.4-10.8)
--- NOTE | 2018-12-24 21:18 | DI.RAD_ITS ---
SYMPTOM/DIAGNOSIS: COUGH, SOB PA AND LATERAL CHEST: 12/24 There are severe changes of pulmonary fibrosis with peripheral honeycombing at multiple sites. Examination is compared to previous examination of 10/04/18. There is question of slight increase in right perihilar markings which may reflect difference in technique. The possibility of acute superimposed pneumonia not excluded. Appropriate follow up studies requested. No pleural effusion seen. Cardiac size within normal limits. CONCLUSION: Severe chronic fibrotic changes, question superimposed right sided infiltrate. Appropriate follow up studies requested.
[2018-12-24 21:23] LABS: ALT 20 U/L (12-78); AST 24 U/L (15-37); Albumin 3.3 g/dL (3.4-5.0); Alkaline Phosphatase 88 U/L (46-116); Anion Gap 7.4 mmol/L (3-11); BUN 14 mg/dL (7-18); Bilirubin, Total 0.3 mg/dL (0.2-1.0); CO2 28.6 mmol/L (21.0-32.0); CREATININE 0.65 mg/dL (0.55-1.02); Calcium 8.6 mg/dL (8.5-10.1); Chloride 104 mmol/L (98-107); Glucose 106 mg/dL (70-100); Magnesium 1.9 mg/dL (1.8-2.4); Potassium 3.8 mmol/L (3.5-5.1); Sodium 140 mmol/L (136-145)
[2018-12-24 21:25] LABS: Troponin I < 0.02 ng/mL (0.00-0.06)
[2018-12-24] MEDS: Albuterol 2.5 MG/3 ML INH SOLN VIAL UPD (21:36)
--- NOTE | 2018-12-24 21:46 | DI.VRAD_ITS ---
EXAM: XR Chest, 2 Views EXAM DATE/TIME: 12/24/2018 8:18 PM CLINICAL HISTORY: 68 years old, female; Signs and symptoms; Cough and shortness of breath TECHNIQUE: Imaging protocol: XR of the chest, 2 views. COMPARISON: SC XR CHEST 2V PA LATERAL 10/04/2018 7:48 PM FINDINGS: Lungs: Bilateral chronic interstitial fibrosis again noted, predominantly apical in distribution. Question mildly increased alveolar density in the right perihilar distribution could represent a mild element of superimposed edema or infiltrate, versus active alveolitis related to chronic interstitial disease. Pleural space: No pleural effusion. No pneumothorax. Heart/Mediastinum: Heart size normal. No mediastinal widening. Question mild vascular congestion. No tracheal shift. Upper abdomen: Gastroplasty clips and prior cholecystectomy noted. Bones/joints: No acute osseous abnormalities are identified. IMPRESSION: 1. Evidence of chronic interstitial fibrosis. 2. Mildly increased right perihilar density could reflect a mild element of superimposed acute alveolitis, edema, or pulmonary infiltrate. Dictated and Authenticated by: Elder Kenyon MD. Ordering:JEFFERY Sousa MD
[2018-12-25] VITALS (23 sets, daily range): BP systolic 105–143; BP diastolic 57–79; PULSE 63–98; RESP 18–24; TEMP 36.6–36.8; O2SAT 96–99
--- NOTE | 2018-12-25 01:05 | HPE_ITS ---
Date of service: 12/25/18 Time of Service: 01:05 Assessment and Plan (1) Pulmonary fibrosis: Current visit: Yes Status: Chronic Her symptoms may be just an exacerbation of her pulmonary fibrosis or a continued progression of her chronic disease however she reports that less than a month ago she was walking up to half a mile a day with her granddaughter. We will treat for her acute bronchitis w/ antibiotics and corticosteroids and see if she improves, if not then consider repeat high resolution CT of her chest. Patient states that she is up to date on her influenza vaccine and her pneumovax. She has a follow up w/ Dr. Giron, the new deicer repairer in [facility] in February. (2) Bronchitis: Current visit: No Status: Acute Patient failed outpatient treatment w/ Zithromax and had a reaction to Levaquin. I will treat her w/ Ceftriaxone and Doxycycline pending sputum cultures, procalcitonin levels. Subjectively she says that she had a fever although we have not documented one and her WBC is normal. I am not impressed that she has consolidations on her CXR. However she reports a change in her sputum and with her chronic structural lung disease she should have the benefit of doubt that she has some acute infectious process to cause her acute symptoms and decline in her pulmonary status. If she shows not improvement the consider further imaging including CT chest. History of Present Illness Chief Complaint: dyspnea, cough Narrative: 68 yr old female w/ PMH of pulmona ry fibrosis who presents w/ 2 weeks of increasing cough and dyspnea. She says that her symptoms began as a cold in which she had nasal congestion and drainage and developed a cough initially productive of white mucous but now productive of green mucous. She also has had a low grade fever of 100. She saw her PCP, Melissa Glasgow at [facility] last Friday and was diagnosed w/ walking pneumonia and prescribed Zithromax Z-pack. No CXR was performed as outpatient. However despite this she continues to complain of dyspnea to the point that she is unable to walk across the room to the bathroom w/out getting dyspneic. She says that she is not on home oxygen and that usually she is able to walk up to half a mile w/ her 3 yr old granddaughter. She denies any chest pain or pedal edema. Workup in the ER included CXR, labs. Labs included CBC which failed to demonstrate a leukocytosis. CMP was unremarkable. Troponin level was less than 0.02. Chest x-ray was read as showing chronic interstitial fibrosis and mild increased right perihilar density possibly reflecting mild element of s uperimposed acute alveolitis versus edema or pulmonary infiltrate. There is no cardiomegaly and no pleural effusion. Treatment in the emergency room included multiple DuoNeb aerosol treatments along with Solu-Medrol 125 mg IV and Levaquin 750 mg IV. While in the emergency room shortly after the Levaquin started infusing the patient developed pruritus of her left arm and there was significant vasodilatation of her veins were left arm and she complained of tingling and numbness of her face. The Levaquin was discontinued immediately and the patient was treated with Benadryl 50 mg IV. Patient has subsequently received improvement in her symptoms. Patient is now admitted to the medical/surgical floor for treatment of exacerbation of her pulmonary fibrosis and concomitant acute bronchitis. Review of Systems Constitutional Denies chills, Reports fatigue and Reports fever(s) Eyes Reports system reviewed and no additional complaints, except as docu ENT Reports nasal congestion and Reports nasal discharge Cardiovascular Reports system reviewed and no additional complaints, except as docu Respiratory Reports as per HPI Gastrointestinal Reports system reviewed and no additional complaints, except as docu Genitourinary Reports system reviewed and no additional complaints, except as docu Musculoskeletal Reports back pain and Reports arthralgias Integumentary/Breasts Reports system reviewed and no additional complaints, except as docu Neurologic Reports system reviewed and no additional complaints, except as docu Psychiatric Reports system reviewed and no additional complaints, except as docu Endocrine Reports system reviewed and no additional complaints, except as docu and Reports fatigue Hematologic/Lymphatic Reports system reviewed and no additional complaints, except as docu Allergic/Immunologic Reports system reviewed and no additional complaints, except as docu PFSH Medical History Pulmonary fibrosis (Chronic) Chronic back pain (Chronic) Surgical History S/P cholecystectomy (Resolved) S/P gastric bypass (Resolved) S/P hernia repair (Resolved) S/P hysterectomy (Resolved) Social History Smoking/Tobacco Use Status: Never Second Hand Exposure: Yes (Secondary to her parents as well as ) Alcohol Intake: never Drug use: Never Substance use type: does not use Household members: family and children 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 What type of physical activity do you participate in: walking Frequency: daily Do you feel safe at home: Yes Do you feel safe in your relationship?: Yes History History 4 Para Hx # Term Pregnancies 4 Multiple births Hx # Pregnancies Ectopic pregnancies AB induced Hx Number of Living Children AB spontaneous Meds Home Medications Medication Instructions Recorded Confirmed Type albuterol sulfate [ProAir HFA] 2 puff INHALATION Q4H PRN PRN #1 10/02/17 12/24/18 Rx [email or web address] azithromycin 250 mg PO DAILY 12/24/18 12/24/18 History tramadol 50 mg PO BID PRN 12/24/18 12/24/18 History Allergies Allergy/AdvReac Type Severity Reaction Status Date / Time Sulfa (Sulfonamide Allergy Severe throat Unverified 04/03/18 15:19 Antibiotics) swelling/can't breath levofloxacin Allergy Intermediate Dizziness/L Unverified 12/25/18 01:55 ightheade Exam Const General: cooperative, well groomed and frail appearing Nutritional Appearance: thin and underweight Orientation: alert, awake and oriented x3 HENMT Head: normal to inspection, no palpable skull fracture, normocephalic and atr aumatic Ears: external ears normal and TM's normal bilaterally General nose exam: external nose normal, nares normal and nasal mucous membranes and turbinates normal Face and sinus: normal facial exam, sinuses nontender and face symmetric Mouth: oral mucosae normal Throat: posterior oropharynx normal Eyes General: appearance normal, both eyes and all related structures Alignment and Position: alignment normal Periorbital: periorbital findings normal Eyelids: eyelids normal Conjunctivae: conjunctivae normal Sclera: sclerae normal Cornea: corneas normal Pupils: PERRL EOM: EOM intact bilaterally Neck Neck: normal visual inspection, full ROM, no lymphadenopathy, trachea midline and no JVD Carotids: normal carotid upstroke Lymphatic: no lymphadenopathy noted Chest Chest: normal inspection of the chest and normal palpation of entire chest wall Resp Effort & Inspection: normal respiratory effort and able to speak in complete sentences Auscultation: rales (dry fine cellophane rales) bilaterally throughout and whe ezes expiratory wheezes and scattered wheezes Cardio Jugular venous pressure: no JVD Palpation: normal PMI Rate: regular rate Rhythm: regular rhythm Heart Sounds: S1 normal and S2 normal Pulses: normal peripheral pulses GI Inspection: scaphoid and scar Palpation: soft and no hepatosplenomegaly Percussion: normal to percussion Auscultation: normal bowel sounds Back/Spine/Pelvis Back: no CVA tenderness Cervical Spine: normal cervical lordosis Thoracic/Lumbar Spine: thoracic and lumbar spine normal to inspection Skin General skin exam: no rashes or lesions noted Neuro General: alert, awake, oriented x3, moves all extremities and no focal motor deficits Cranial Nerves: CN's II-XI intact bilaterally, PERRL, EOM intact bilaterally, no nystagmus, facial strength normal, tongue midline, able to rotate head bilaterally and able to elevate shoulders bilaterally Cognition: normal cognition Speech: speech normal Motor: muscle tone normal throughout, strength 5/5 throughout and no movement abnormalities noted Sensory Exam: no sensory deficits noted Extrem General: normal to inspection, full ROM, no joint enlargement and no clubbing, cyanosis or edema Psych Appearance: grossly normal Mental Status: mental status grossly normal Speech and Movement: speech and movement normal Mood: congruent mood Affect: normal affect Attitude: cooperative Thought Process: normal Thought Content: normal Insight: insight good Judgment: judgment good Results Imaging Chest x-ray: image reviewed (IMPRESSION: 1. Evidence of chronic interstitial fibrosis. 2. Mildly increased right perihilar density could reflect a mild element of superimposed acute alveolitis, edema, or pulmonary infiltrate. Dictated and Authenticated by: Elder Kenyon MD.) EKG: image reviewed (normal sinus rhythm, normal EKG) Labs : 12/24/18 21:00 12/24/18 21:00 Laboratory Results - last 24 hr 12/24/18 12/24/18 21:00 21:00 WBC 6.29 RBC 4.08 Hgb 11.9 L Hct 36.3 MCV 89.0 MCH 29.2 MCHC 32.8 RDW 13.1 Plt Count 195 MPV 8.9 Immature Gran % 0.2 Neutrophils % 32.1 Lymphocytes % 50.2 Monocytes % 7.5 Eosinophils % 9.7 Basophils % 0.3 Absolute Neutrophils 2.02 Absolute Lymphocytes 3.16 Absolute Monocytes 0.47 Absolute Eosinophils 0.61 Absolute Basophils 0.02 Sodium 140 Potassium 3.8 Chloride 104 Carbon Dioxide 28.6 Anion Gap 7.4 BUN 14 Creatinine 0.65 Estimated GFR/1.73 m2 >= 60.00 Glucose 106 H Calcium 8.6 Magnesium 1.9 Total Bilirubin 0.3 AST 24 ALT 20 Alkaline Phosphatase 88 Troponin I < 0.02 Total Protein 7.0 Albumin 3.3 L Last Vital Signs Temp 36.8 C 12/24/18 19:14 Pulse 75 12/24/18 23:31 Resp 18 12/24/18 22:47 BP 134/71 12/24/18 23:31 Pulse Ox 99 12/24/18 23:31
[2018-12-25] MEDS: levoFLOXacin 750 MG/150 ML BAG 100 MG IVPB (01:31)
[2018-12-25] MEDS: diphenhydrAMINE 50 MG/ML VIAL IVP (01:52)
[2018-12-25 02:39] LABS: Procalcitonin < 0.1 ng/mL
[2018-12-25] MEDS: traMADol 50 MG TAB 100 MG PO ×2 (03:35→15:40)
[2018-12-25] MEDS: Acetaminophen 325 MG TAB PO (03:35)
[2018-12-25] MEDS: Normal Saline Flush 10 ML SYR IVP ×2 (03:36→12:10)
[2018-12-25] MEDS: methylPREDNISolone SUCC 125 MG VIAL 80 MG IVP ×2 (03:36→12:10)
[2018-12-25] MEDS: cefTRIAXone 1 GM/50 ML BAG IVPB (03:36)
[2018-12-25] MEDS: Doxycycline Hyclate 100 MG CAP PO (08:28)
[2018-12-25] MEDS: Enoxaparin 30 MG/0.3 ML SYR SC (08:28)
--- NOTE | 2018-12-25 10:43 | CHAPLAIN ---
Ashley was in bed when I visited. She was pleasant and said she is feeling better today. She told me about moving to the [facility] from [facility] to be closer to her son. Her daughter spent the night here with Ashley, and she is expecting more family to visit today.
[2018-12-25 11:17] LABS: Platelet Count 211 x1000/uL (130-400)
--- NOTE | 2018-12-25 11:56 | PHARADMIT ---
Admission Pharmacy Clinical Review PULMONARY FIBROSIS, DYSPNEA,COUGH Code Status Full Code Current Weight Wgt-44.1 kg Renally Cleared and Narrow Therapeutic Index Meds CrCl~ 46.85 mL/min Meds-OK QTc Value / Action Taken QTc-423 na BP Control, Fever BP- 118/66 Tmax- 36.8C Electrolytes reviewed Na- 140 K+3.8 Mag-1.9 DVT Prophylaxis Lovenox Opiate Usage / Scheduled Bowel Regimen Ordered Yes Yes Plt/SCr for Heparin / Enoxaparin Plts- 211 SCr-0.65 INR for Warfarin na H/H stable, WBC/Bands H&H- 11.9/36.3 WBC- 6.29 Antibiotic appropriateness Rocephin, Doxycycline Cultures and Sensitivities none Surgical ABX d/c within 24 hr NA DM control / Insulin Dosing BG- 106 Heart Failure (Check EF%) (JAYDEN's, B-Block, Diuretics) none IV to PO Switch No Home Meds Reviewed Yes Home Meds Not Ordered Failed Azithromycin Comments
--- NOTE | 2018-12-25 12:05 | PDOC.CMIN ---
- If Service Date Differs Date of service: 12/25/18 Time of Service: 12:05 Care Management Initial Assess REASON FOR HOSPITALIZATION:: Pulmonary fibrosis, Bronchitis PAST MEDICAL HISTORY/PAST SURGICAL HISTORY:: Pulmonary fibrosis (Chronic). Chronic back pain (Chronic). S/P cholecystectomy (Resolved). S/P gastric bypass (Resolved). S/P hernia repair (Resolved). S/P hysterectomy (Resolved) PREVIOUS FUNCTIONAL STATUS/SOCIAL/FAMILY SUPPORTS:: Ashley resides with her son and DIL in [place]. She states that she has five children whom reside locally and are very supportive. 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 She states that she is going to be going to [facility] in August to practice real est[employer]ho[employer]ent for three months. Ashley drives and is independent at baseline. CURRENT FUNCTIONAL STATUS:: Currently Ashley is sitting up in bed when this publications writer visits, she is pleasant and receptive to discussion. ADVANCE DIRECTIVES:: None on file Has patient been provided with information about the portal?: Yes Did the patient sign up for the portal?: No CODE STATUS:: Full Code INSURANCE COVERAGE / FINANCIAL ISSUES:: Medicare, Medicaid CURRENT HOME/COMMUNITY SERVICES/EQUIPMENT:: Currently Ashley has no services or medical equipment in the community. PRIMARY CARE PHYSICIAN:: Chloe Barrett POTENTIAL DISCHARGE NEEDS:: F/U appointment with PCP PATIENT/FAMILY EDUCATION NEEDS:: Review DC instructions, any limitations, and ongoing DC planning discussion. Discuss 'Ask Me Three' ANTICIPATED BARRIERS TO DISCHARGE:: None identified at this time. TRANSPORTATION:: Via private vehicle with tiki Espinoza PLAN:: Ashley will return home with no anticipated services. She will F/U with PCP and plan of care as prescribed. Ashley's son Alexis will transport when ready.
--- NOTE | 2018-12-25 12:11 | INITIAL_ITS ---
- If Service Date Differs Date of service: 12/25/18 Time of Service: 12:05 Care Management Initial Assess REASON FOR HOSPITALIZATION:: Pulmonary fibrosis, Bronchitis PAST MEDICAL HISTORY/PAST SURGICAL HISTORY:: Pulmonary fibrosis (Chronic). Chronic back pain (Chronic). S/P cholecystectomy (Resolved). S/P gastric bypass (Resolved). S/P hernia repair (Resolved). S/P hysterectomy (Resolved) PREVIOUS FUNCTIONAL STATUS/SOCIAL/FAMILY SUPPORTS:: Ashley resides with her son and DIL in [place]. She states that she has five children whom reside locally and are very supportive. 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 She states that she is going to be going to [facility] in August to practice real [employer] for three months. Ashley drives and is independent at baseline. CURRENT FUNCTIONAL STATUS:: Currently Ashley is sitting up in bed when this telegraphic typewriter installer visits, she is pleasant and receptive to discussion. ADVANCE DIRECTIVES:: None on file Has patient been provided with information about the portal?: Yes Did the patient sign up for the portal?: No CODE STATUS:: Full Code INSURANCE COVERAGE / FINANCIAL ISSUES:: Medicare, Medicaid CURRENT HOME/COMMUNITY SERVICES/EQUIPMENT:: Currently Ashley has no services or medical equipment in the community. PRIMARY CARE PHYSICIAN:: Chloe Barrett POTENTIAL DISCHARGE NEEDS:: F/U appointment with PCP PATIENT/FAMILY EDUCATION NEEDS:: Review DC instructions, any limitations, and ongoing DC planning discussion. Discuss 'Ask Me Three' ANTICIPATED BARRIERS TO DISCHARGE:: None identified at this time. TRANSPORTATION:: Via private vehicle with tiki Espinoza PLAN:: Ashley will return home with no anticipated services. She will F/U with PCP and plan of care as prescribed. Ashley's son Alexis will transport when ready.
--- NOTE | 2018-12-25 15:23 | W.PM.DS.N ---
Date of service: 12/25/18 Time of Service: 15:23 DS: Diagnosis Discharge Diagnosis (1) Pulmonary fibrosis: Status: Chronic (2) Bronchitis: Status: Acute Discharge Plan Disposition Patient Disposition: HOME Condition: Poor Discharge Details Reason For Visit: PULMONARY FIBROSIS/DYSPNEA/COUGH Admit Date/Time: 12/25/18 00:33 Admit Provider: Mathew Lara Attending Provider: Mathew Lara Primary Care Provider: Chloe Barrett Hospital Course Hospital Course: Ms Da Silva is a 68 year old female with PMHx of non-oxygen dependent pulmonary fibrosis as well as chronic back pain, observed at [facility] on 12/25/18 for an acute exacerbation of pulmonary fibrosis due to an acute bronchitis. She was treated with high dose IV steroids, IV antiobiotics (doxycycline, rocephin), nebulizer treatments and already feels better to the point of wanting to go home today. She does not require oxygen on ambulatory pulse ox. On her exam, she has the inspiratory squak that is likely associated with her pulmonary fibrosis. Ms Da Silva states that she has a nebulizer at home, but no nebulizer treatments - these will be prescribed to her. She is being prescribed doxycycline and ceftin for 6 more days given her recent outpatient failure of azithromycin and underlying lung disease. She is to follow up with her PCP in 1-2 weeks. It is recommended that a follow up CXR is obtained upon completion of therapy. Home Meds and New Rx's Prescriptions: New ipratropium-albuterol 0.5 mg-3 mg(2.5 mg base)/3 mL Solution For Nebulization 3 ml UPD Q4H PRN PRN (Reason: shortness of breath) Qty: 180 RF: 0 doxycycline hyclate 100 mg Capsule 100 mg PO BID Qty: 13 RF: 0 cefuroxime axetil 500 mg tablet 500 mg PO Q12H Qty: 13 RF: 0 prednisone 20 mg tablet See Rx Instructions .ROUTE .COMPLEX Qty: 26 RF: 0 Continued albuterol sulfate [ProAir HFA] 8.5 GM HFA aerosol inhaler 2 puff Inhalation Q4H PRN PRN (Reason: wheezing/dyspnea) Qty: 1 RF: 0 tramadol 50 mg Tablet 100 mg PO BID PRNRF: 0 Discontinued azithromycin 250 mg Tablet 250 mg PO DAILY RF: 0 Discharge Instructions Instructions: Cefuroxime (By mouth), Doxycycline (By mouth) Additional Instructions: Stay out of the sun while on doxycycline. Finish your antibiotics and steroids as prescribed. Return to the hospital with any worsening shortness of breath, fever, bleeding, chest pain. Follow up with your PCP in 1-2 days. Referrals: Chloe Barrett [Primary Care Provider] - Activity:: Activity as Tolerated Equipment/Supplies:: No Equipment Needed Diet:: As Tolerated Discharge Orders Discharge Orders: Discharge Order (Routine); Ordered 12/25/18 Ordered By: Jessica Roper Exam Narrative Exam Narrative: General: Very pleasant female, sitting up in bed, no shortness of breath noted while speaking in full sentences HEENT: EOMI, MMM Heart: RRR, no m/r/g Lungs: inspiratory squack, no wheezing Abdomen: soft, nontender, nondistended Extremities: no e/c/c BLE's, 1+ pedal pulses B DS: Data Vitals/I&O Vitals and I&O: Vital Signs Temperature 36.6 C 12/25/18 07:25 Temperature Source Tympanic 12/25/18 07:25 Pulse 63 12/25/18 07:25 Pulse Rhythm Regular 12/25/18 12:48 Respiratory Rate 18 12/25/18 07:25 Respiratory Effort 12/25/18 12:48 Respiratory Depth Normal 12/25/18 12:48 Respiratory Pattern Normal 12/25/18 12:48 Blood Pressure 118/66 12/25/18 07:25 Blood Pressure Mean 71 12/25/18 01:31 Blood Pressure Position Sitting 12/24/18 19:14 Pulse Oximetry 97 12/25/18 09:55 Oxygen Delivery Method Room Air 12/25/18 09:55 Oxygen Flow Rate 0 12/25/18 09:55 Pain Level 0 12/25/18 03:20 Intake & Output 12/24/18 12/25/18 12/25/18 23:59 11:59 23:59 Intake Total 776.667 / 1016.667 240 / 1016.667 Output Total 300 / 300 Balance 476.667 / 716.667 240 / 716.667 Weight 43.998 kg 44.1 kg Intake: IV 76.667 / 76.667 Oral 700 / 940 240 / 940 Output: Urine 300 / 300 Other: Urine Color Straw Urine Appearance Clear Clear Urine Odor Strong Completed studies during hospitalization [Text1]: CXR: Severe chronic fibrotic changes, question superimposed right sided infiltrate. Appropriate follow up studies requested. Labs on day of discharge: Labs from last 24 hours 12/25/18 12/24/18 12/24/18 11:06 21:00 21:00 WBC 6.29 RBC 4.08 Hgb 11.9 L Hct 36.3 MCV 89.0 MCH 29.2 MCHC 32.8 RDW 13.1 Plt Count 211 195 MPV 8.9 Immature Gran % 0.2 Neutrophils % 32.1 Lymphocytes % 50.2 Monocytes % 7.5 Eosinophils % 9.7 Basophils % 0.3 Absolute Neutrophils 2.02 Absolute Lymphocytes 3.16 Absolute Monocytes 0.47 Absolute Eosinophils 0.61 Absolute Basophils 0.02 Sodium Potassium Chloride Carbon Dioxide Anion Gap BUN Creatinine Estimated GFR/1.73 m2 Glucose Calcium Magnesium Total Bilirubin AST ALT Alkaline Phosphatase Troponin I Total Protein Albumin Procalcitonin < 0.1 12/24/18 21:00 WBC RBC Hgb Hct MCV MCH MCHC RDW Plt Count MPV Immature Gran % Neutrophils % Lymphocytes % Monocytes % Eosinophils % Basophils % Absolute Neutrophils Absolute Lymphocytes Absolute Monocytes Absolute Eosinophils Absolute Basophils Sodium 140 Potassium 3.8 Chloride 104 Carbon Dioxide 28.6 Anion Gap 7.4 BUN 14 Creatinine 0.65 Estimated GFR/1.73 m2 >= 60.00 Glucose 106 H Calcium 8.6 Magnesium 1.9 Total Bilirubin 0.3 AST 24 ALT 20 Alkaline Phosphatase 88 Troponin I < 0.02 Total Protein 7.0 Albumin 3.3 L Procalcitonin PFSH Medical History Pulmonary fibrosis (Chronic) Chronic back pain (Chronic) Surgical History S/P cholecystectomy (Resolved) S/P gastric bypass (Resolved) S/P hernia repair (Resolved) S/P hysterectomy (Resolved) Social History Smoking/Tobacco Use Status: Never Second Hand Exposure: Yes (Secondary to her parents as well as ) Alcohol Intake: never Drug use: Never Substance use type: does not use Household members: family and children 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
== END 2018-12-25 16:20 | disposition home or self-care (01) ==
LOC: ER 12-25 01:02 → MS 12-25 03:11
PROVIDERS: Admitting Provider Internal Medicine; Emergency Provider Emergency Medicine; PCP Physician Assistant Medical; Visit Provider Internal Medicine
DX: J84.10 Pulmonary fibrosis, unspecified (principal); J20.9 Acute bronchitis, unspecified; G89.29 Other chronic pain; M54.9 Dorsalgia, unspecified
CPT/HCPCS: 36415; 36416; 80053; 84145; 93005; 94640; 96365; 99217; 99223; 99285; 71046; 83735; 84484; 85025; 85049; 93010; G0378; J0696; J1650; J1956; J2930; J7613; J7620

== ENCOUNTER 2019-01-10 22:54 | Emergency (ER) | payer MEDICARE, SELFPAY ==
[2019-01-10 22:58] VITALS: BP 128/80; PULSE 80; RESP 20; TEMP 36.5; O2SAT 97
--- NOTE | 2019-01-10 23:11 | W.ED.GENAD ---
Discharge Plan Disposition Patient Disposition: HOME Condition: Improving Discharge Details Chief Complaint: RespSymp Clinical Impression: Pulmonary fibrosis Primary Care Provider: Chloe Barrett ED Provider: Peter Nath Home Meds and New Rx's Prescriptions: Continued albuterol sulfate [ProAir HFA] 8.5 GM HFA aerosol inhaler 2 puff Inhalation Q4H PRN PRN (Reason: wheezing/dyspnea) Qty: 1 RF: 0 tramadol 50 mg Tablet 100 mg PO BID PRNRF: 0 ipratropium-albuterol 0.5 mg-3 mg(2.5 mg base)/3 mL Solution For Nebulization 3 ml UPD Q4H PRN PRN (Reason: shortness of breath) Qty: 180 RF: 0 Multi For Her 18 mg iron-600 mcg-40 mcg Capsule RF: 0 Discharge Instructions Additional Instructions: Home to rest tonight. Continue all regular medications Medical Decision Making 60-year-old female with pulmonary fibrosis reports she has had some mild shortness of breath today that resolved when she took her home nebulizer. Due to recent admission for pneumonia for which she completed a course of antibiotics and prednisone, her family was worried and asked that she be evaluated in the emergency department. She arrives with normal vital signs including a temperature of 36.5 and a 97% room air sat. She is speaking in full sentences and her exam is unremarkable. Screening chest x-ray obtained without any new focal findings. She remained stable and improved, appropriate for discharge to home. She will follow-up with primary care as needed. HPI General Mode of arrival: ambulatory. Date/Time Provider Initiated Documentation: 01/10/19 22:55. Limitations to Documentation: no limitations. Information obtained by: patient. History of Present Illness 68 year old F presents to the emergency department with the chief complaint of Shortness of breath, improved, described as mild and similar to prior episodes, Quality is described as dull, and is localized to the chest. Patient reports no radiation. Patient started experiencing this hour(s) and it has been now resolved. No relieving factors improve symptom(s), No exacerbating factors reported . Patient notes shortness of breath; denies cough and fever/chills. Patient did receive the following treatments prior to arrival, other (Nebulizer at home) Related Data Home Medications Medication Instructions Recorded Confirmed albuterol sulfate [ProAir HFA] 2 puff INHALATION Q4H PRN PRN #1 10/02/17 01/10/19 [email or web address] tramadol 100 mg PO BID PRN 12/24/18 01/10/19 ipratropium-albuterol 3 ml UPD Q4H PRN PRN #180 ml 12/25/18 01/10/19 Multi For Her 01/10/19 Previous Rx's Medication Instructions Recorded albuterol sulfate [ProAir HFA] 2 puff INHALATION Q4H PRN PRN #1 10/02/17 [email or web address] ipratropium-albuterol 3 ml UPD Q4H PRN PRN #180 ml 12/25/18 Allergies Allergy/AdvReac Type Severity Reaction Status Date / Time Sulfa (Sulfonamide Allergy Severe throat Unverified 01/10/19 23:05 Antibiotics) swelling/can't breath levofloxacin Allergy Intermediate Other (See Unverified 01/10/19 23:05 Comment) General Stated Complaint: RespSymp JAMIE: 3 Review of Systems Review of Systems 6 systems reviewed and otherwise neg [facility] Medical History Pulmonary fibrosis (Chronic) Chronic back pain (Chronic) Surgical History S/P cholecystectomy (Resolved) S/P gastric bypass (Resolved) S/P hernia repair (Resolved) S/P hysterectomy (Resolved) Social History Smoking/Tobacco Use Status: Never Second Hand Exposure: Yes (Secondary to her parents as well as ) Alcohol Intake: never Drug use: Never Substance use type: does not use Household members: family and children 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 [employer] What type of physical activity do you participate in: walking Frequency: daily Do you feel safe at home: Yes Do you feel safe in your relationship?: Yes History History 4 Para Hx # Term Pregnancies 4 Multiple births Hx # Pregnancies Ectopic pregnancies AB induced Hx Number of Living Children AB spontaneous Exam Narrative Exam Narrative: GEN: awake, alert, oriented 3. Pleasant, well groomed, interactive. HEAD: Normocephalic, atraumatic ENT: Mucous membranes moist, oropharynx unremarkable, External ear exam unremarkable EYES: PERRL, EOMI NECK: Full ROM, no ROSA M, no menigismus CHEST/RESP: Nontender, clear to auscultation bilateral, no wheeze/rhonchi/rales CARDIOVASCULAR: RRR, no murmur, rub ashley. 2+ Rad pulse bilateral ABDOMEN: Soft, nontender, no mass. +Bowel sounds EXT: Full ROM, no edema, no rash Neuro: Grossly normal neurologic exam, conversant, interactive. Psych: Speech fluent, thoughts congruent, affect normal Course Vital Signs Temperature 36.5 C 01/10/19 22:58 Pulse 80 01/10/19 22:58 Respiratory Rate 20 01/10/19 22:58 Blood Pressure 128/80 01/10/19 22:58 Pulse Oximetry 97 01/10/19 22:58 Temperature 36.5 C 01/10/19 22:58 Temperature Source Skin 01/10/19 22:58 Pulse 80 01/10/19 22:58 Respiratory Rate 20 01/10/19 22:58 Respiratory Effort Non-Labored 01/10/19 23:03 Blood Pressure 128/80 01/10/19 22:58 Blood Pressure Position Sitting 01/10/19 22:58 Pulse Oximetry 97 01/10/19 22:58 Oxygen Delivery Method Room Air 01/10/19 22:58 Oxygen Flow Rate 0 01/10/19 22:58 Pain Level 0 01/10/19 22:58
--- NOTE | 2019-01-10 23:14 | ED.GENADUL_ITS ---
Discharge Plan Disposition Patient Disposition: HOME Condition: Improving Discharge Details Chief Complaint: RespSymp Clinical Impression: Pulmonary fibrosis Primary Care Provider: Chloe Barrett ED Provider: Peter Nath Home Meds and New Rx's Prescriptions: Continued albuterol sulfate [ProAir HFA] 8.5 GM HFA aerosol inhaler 2 puff Inhalation Q4H PRN PRN (Reason: wheezing/dyspnea) Qty: 1 RF: 0 tramadol 50 mg Tablet 100 mg PO BID PRNRF: 0 ipratropium-albuterol 0.5 mg-3 mg(2.5 mg base)/3 mL Solution For Nebulization 3 ml UPD Q4H PRN PRN (Reason: shortness of breath) Qty: 180 RF: 0 Multi For Her 18 mg iron-600 mcg-40 mcg Capsule RF: 0 Discharge Instructions Additional Instructions: Home to rest tonight. Continue all regular medications Medical Decision Making 60-year-old female with pulmonary fibrosis reports she has had some mild shortness of breath today that resolved when she took her home nebulizer. Due to recent admission for pneumonia for which she completed a course of antibiotic s and prednisone, her family was worried and asked that she be evaluated in the emergency department. She arrives with normal vital signs including a temperature of 36.5 and a 97% room air sat. She is speaking in full sentences and her exam is unremarkable. Screening chest x-ray obtained without any new focal findings. She remained stable and improved, appropriate for discharge to home. She will follow-up with primary care as needed. HPI General Mode of arrival: ambulatory . Date/Time Provider Initiated Documentation: 01/10/19 22:55 . Limitations to Documentation: no limitations . Information obtained by: patient . History of Present Illness 68 year old F presents to the emergency department with the chief complaint of Shortness of breath, improved, described as mild and similar to prior episodes, Quality is described as dull, and is localized to the chest. Patient reports no radiation. Patient started experiencing this hour(s) and it has been now resolved. No relieving factors improve symptom(s), No exacerbating factors reported . Patient notes shortness of breath; denies cough and fever/chills. Patient did receive the following treatments prior to arrival, other (Nebulizer at home) Related Data Home Medications Medication Instructions Recorded Confirmed albuterol sulfate [ProAir HFA] 2 puff INHALATION Q4H PRN PRN #1 10/02/17 01/10/19 [email or web address] tramadol 100 mg PO BID PRN 12/24/18 01/10/19 ipratropium-albuterol 3 ml UPD Q4H PRN PRN #180 ml 12/25/18 01/10/19 Multi For Her 01/10/19 Previous Rx's Medication Instructions Recorded albuterol sulfate [ProAir HFA] 2 puff INHALATION Q4H PRN PRN #1 10/02/17 [email or web address] ipratropium-albuterol 3 ml UPD Q4H PRN PRN #180 ml 12/25/18 Allergies Allergy/AdvReac Type Severity Reaction Status Date / Time Sulfa (Sulfonamide Allergy Severe throat Unverified 01/10/19 23:05 Antibiotics) swelling/can't breath levofloxacin Allergy Intermediate Other (See Unverified 01/10/19 23:05 Comment) General Stated Complaint: RespSymp JAMIE: 3 Review of Systems Review of Systems 6 systems reviewed and otherwise neg PFSH Medical History Pulmonary fibrosis (Chronic) Chronic back pain (Chronic) Surgical History S/P cholecystectomy (Resolved) S/P gastric bypass (Resolved) S/P hernia repair (Resolved) S/P hysterectomy (Resolved) Social History Smoking/Tobacco Use Status: Never Second Hand Exposure: Yes (Secondary to her parents as well as ) Alcohol Intake: never Drug use: Never Substance use type: does not use Household members: family and children 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 [employer] What type of physical activity do you participate in: walking Frequency: daily Do you feel safe at home: Yes Do you feel safe in your relationship?: Yes History History 4 Para Hx # Term Pregnancies 4 Multiple births Hx # Pregnancies Ectopic pregnancies AB induced Hx Number of Living Children AB spontaneous Exam Narrative Exam Narrative: GEN: awake, alert, oriented 3. Pleasant, well groomed, interactive. HEAD: Normocephalic, atraumatic ENT: Mucous membranes moist, oropharynx unremarkable, External ear exam unremarkable EYES: PERRL, EOMI NECK: Full ROM, no ROSA M, no menigismus CHEST/RESP: Nontender, clear to auscultation bilateral, no wheeze/rhonchi/rales CARDIOVASCULAR: RRR, no murmur, rub ashley. 2+ Rad pulse bilateral ABDOMEN: Soft, nontender, no mass. +Bowel sounds EXT: Full ROM, no edema, no rash Neuro: Grossly normal neurologic exam, conversant, interactive. Psych: Speech fluent, thoughts congruent, affect normal Course Vital Signs Temperature 36.5 C 01/10/19 22:58 Pulse 80 01/10/19 22:58 Respiratory Rate 20 01/10/19 22:58 Blood Pressure 128/80 01/10/19 22:58 Pulse Oximetry 97 01/10/19 22:58 Temperature 36.5 C 01/10/19 22:58 Temperature Source Skin 01/10/19 22:58 Pulse 80 01/10/19 22:58 Respiratory Rate 20 01/10/19 22:58 Respiratory Effort Non-Labored 01/10/19 23:03 Blood Pressure 128/80 01/10/19 22:58 Blood Pressure Position Sitting 01/10/19 22:58 Pulse Oximetry 97 01/10/19 22:58 Oxygen Delivery Method Room Air 01/10/19 22:58 Oxygen Flow Rate 0 01/10/19 22:58 Pain Level 0 01/10/19 22:58
--- NOTE | 2019-01-10 23:45 | DI.RAD_ITS ---
SYMPTOM/DIAGNOSIS: COUGH, H/O PULMONARY FIBROSIS FRONTAL AND LATERAL CHEST; Comparison is made with 10/04/18. Heart size and pulmonary vasculature are within normal limits. There are stable chronic pulmonary fibrotic changes. No evidence of a superimposed pneumonia or congestive heart failure is seen. No effusions or pneumothoraces are identified. Surgical clips are seen in the left upper quadrant of the abdomen. The bones appear intact. IMPRESSION: No acute pulmonary process.
--- NOTE | 2019-01-11 00:05 | DI.VRAD_ITS ---
EXAM: XR Chest, 2 Views EXAM DATE/TIME: 01/10/2019 11:11 PM CLINICAL HISTORY: 68 years old, female; Signs and symptoms; Cough and shortness of breath; Prior surgery; Surgery date: 6+ months; Surgery type: Gastric bypass surgery TECHNIQUE: Imaging protocol: XR of the chest, 2 views. COMPARISON: [place] XR CHEST 2V PA LATERAL 12/24/2018 9:15 PM FINDINGS: Lungs: Bilateral chronic interstitial fibrosis again seen without significant change since 12/24/2018. No new focal consolidation. Pleural space: No pleural effusion. No pneumothorax. Heart/Mediastinum: No cardiomegaly. Upper abdomen: Surgical clips in the upper abdomen. Bones/joints: No acute findings. IMPRESSION: No significant change since 12/24/2018. Chronic interstitial fibrosis without new focal consolidation. Dictated and Authenticated by: Elida Arredondo MD. Ordering:THANG Green MD
[2019-01-11 00:19] VITALS: BP 128/79; PULSE 80; RESP 18; O2SAT 96
== END 2019-01-11 00:20 | disposition home or self-care (01) ==
PROVIDERS: Emergency Provider Emergency Medicine; PCP Physician Assistant Medical
DX: J84.10 Pulmonary fibrosis, unspecified (principal); Z77.22 Contact with and (suspected) exposure to environmental tobacco smoke (acute) (chronic)
CPT/HCPCS: 99283; 71046

== ENCOUNTER 2019-08-01 12:37 | Emergency (ER) | payer MEDICARE, MEDICAID, SELFPAY ==
[2019-08-01] VITALS (15 sets, daily range): BP systolic 122–134; BP diastolic 52–74; PULSE 70–82; RESP 12–22; TEMP 36.4–36.9; O2SAT 98–100
--- NOTE | 2019-08-01 12:40 | ED.GENADUL_ITS ---
Discharge Plan Disposition Patient Disposition: HOME Condition: Stable Discharge Details Chief Complaint: SOB Clinical Impression: Chronic shortness of breath, History of pulmonary fibrosis, Chronic pneumothorax Primary Care Provider: Chloe Barrett ED Provider: Ibeth Mendiola Home Meds and New Rx's Prescriptions: New oxycodone 5 mg tablet 5 mg PO Q6H PRN (Reason: pain) Qty: 10 RF: 0 Continued albuterol sulfate [ProAir HFA] 8.5 GM HFA aerosol inhaler 2 puff Inhalation Q4H PRN PRN (Reason: wheezing/dyspnea) Qty: 1 RF: 0 tramadol 50 mg Tablet 100 mg PO BID PRNRF: 0 ipratropium-albuterol 0.5 mg-3 mg(2.5 mg base)/3 mL Solution For Nebulization 3 ml UPD Q4H PRN PRN (Reason: shortness of breath) Qty: 180 RF: 0 Multi For Her 18 mg iron-600 mcg-40 mcg Capsule RF: 0 Discharge Instructions Instructions: Dyspnea (ED) Additional Instructions: Take your tramadol that you have at home as needed and directed for pain. Take the oxycodone for pain not relieved with tramadol. Do not take tramadol and oxycodone together as this could stop your breathing. Continue to use your incentive spirometry at home as directed to to encourage you to take deep breaths and prevent pneumonia. Call Dr. Goldberg tomorrow to schedule a follow up appointment for re-evaluation this week if needed. Return to the emergency department if you develop any worsening or new concerning symptoms. Discharge Data Discharge Date/Time-TO BE ENTERED AT DEPARTURE: 08/01/19 14:35 Discharge Physician: Ibeth Mendiola Medical Decision Making 1242 -- 68-year-old female with history of pulmonary fibrosis and chronic back pain 4 days status post right lung biopsy at [facility] presents for increasing crepitus and slight pain to right anterior chest since then with shortness of breath today. Vitals within normal limits. Normal oxygen saturation. Diminished breath sounds right chest. She has crepitus to palpation of right anterior lateral chest. Right lateral chest wound healing well with [address] There is a right inferior posterior lateral wound without signs of cellulitis or bleeding. Concern for pneumothorax versus pneumonia versus ACS versus pleural effusion. Will obtain stat portable chest, screening labs and CT chest. Will give morphine and placed on nasal cannula oxygen. 1310 -- Stat portable chest x-ray negative for obvious pneumothorax. There is effusion noted at right costophrenic angle. Labs reviewed and unremarkable. Review of records from [facility] note that on postop day 1 she had a small amount of subcutaneous emphysema in her chest x-ray showed that the lung had dropped a little bit within a large right pneumothorax. Subsequently with chest tube to suction the pneumothorax resolved with her residual chronic right apical pneumothorax and stable subcutaneous emphysema and she was discharged home. 1410 -- Case discussed with patient's photographer's model Dr. Gong who performed the lung biopsy this week. He states he was waiting for her at [facility] but patient's children decided to bring her here because they were nervous. Reviewed results with him and agree that patient appears stable with stable chronic pneumothorax that she has had for months. Okay with plan for discharged home. Advised to continue incentive spirometry and follow-up with him tomorrow. Patient and family feel agreeable with plan. Usual and customary return precautions given prior to discharge. Medical Records Medical records reviewed: Yes I reviewed the patient's medical records. Imaging Data Radiologic Study: Radiologist's impression: XR Chest, 1 View Exam date and time: 08/01/2019 1:11 PM Age: 68 years old Clinical history: Other: S/P biopsy R chest/crepitus R chest/pain/sob; Additional info: S/P biopsy R chest/crepitus R chest/pain/sob, R/O pneumothorax on R side TECHNIQUE: Imaging protocol: XR of the chest Views: 1 view. COMPARISON: CR XR CHEST 2V PA LATERAL 01/10/2019 11:43 PM FINDINGS: Diffuse interstitial lung disease unchanged from the prior examination consistent with marked interstitial fibrosis. No new focal consolidation. Mild scoliosis of the thoracic spine with convexity to the right. No evidence of pneumothorax. No pleural effusions. Surgical clips in the epigastrium unchanged. IMPRESSION: Diffuse interstitial fibrosis unchanged from prior exam with no evidence of acute cardiopulmonary disease. Addendum created by Jefry Richmond MD on 08/01/2019 2:12:05 PM EST THIS REPORT CONTAINS FINDINGS THAT MAY BE CRITICAL TO PATIENT CARE. The findings were verbally communicated via telephone conference with ibeth mendiola at 2:12 PM ESTon 08/01/2019The findings were acknowledged and understood. Initial report created on 08/01/2019 2:07:24 PM EST PROCEDURE INFORMATION: Exam: CT Angiography Chest With Contrast Exam date and time: 08/01/2019 12:51 PM Age: 68 years old Clinical history: Other: H/o pulmonary fibrosis; Prior surgery; Surgery date: 3-7 days post-operative; Surgery type: S/P lung biopsy 07/28/19; Additional info: S/P biopsy R chest/crepitus R chest/pain/sob, R/O pneumothorax on R side TECHNIQUE: Imaging protocol: Computed tomographic angiography of the chest with intravenous contrast. 3D rendering: MIP reconstructed images were created and reviewed. Radiation optimization: All CT scans at this facility use at least one of these dose optimization techniques: automated exposure control; mA and/or kV adjustment per patient size (includes targeted exams where dose is matched to clinical indication); or iterative reconstruction. Contrast material: OMNIPAQUE 350; Contrast volume: 55 ml; Contrast route: IV; COMPARISON: CT chest PE CTA 10/04/2018 9:19 PM FINDINGS: Marked interstitial fibrosis. Very small right-sided pneumothorax. Marked right-sided subcutaneous emphysema. More focal area of consolidation in the posterior upper portion of the right lower lobe. This most likely representing atelectasis although other forms of consolidation or density cannot be excluded. No evidence of pulmonary embolism. No pleural effusions. Thoracic aorta is unremarkable. IMPRESSION: 1. Very small right pneumothorax with marked interstitial fibrosis. 2. Superior segment right lower lobe consolidation as outlined above. Lab Data Lab results reviewed: Yes I reviewed the patient's lab results. ECG Data Attestation: I personally reviewed and interpreted this ECG (s) as follows: Interpretation: Rate of 78, sinus, no acute ST elevation or depression. ND 134. QTc 408. QRS 80. HPI General Mode of arrival: wheelchair . Date/Time Provider Initiated Documentation: 08/01/19 12:39 . Limitations to Documentation: no limitations . Information obtained by: patient . HPI Narrative: Patient is a 68-year-old female with a history of pulmonary fibrosis and chronic back pain who is 4 days status post right lung biopsy for her pulmonary fibrosis at [facility] who presents for progressing crepitus to her right anterior chest over the past few days and shortness of breath today. Denies any anterior chest pain. Denies any fever, cough or vomiting. She states she called [facility] and was advised to come here. Upon call to [facility] for records, they stated patient was advised to go there. Related Data Home Medications Medication Instructions Recorded Confirmed albuterol sulfate [ProAir HFA] 2 puff INHALATION Q4H PRN PRN #1 10/02/17 08/01/19 [email or web address] tramadol 100 mg PO BID PRN 12/24/18 08/01/19 ipratropium-albuterol 3 ml UPD Q4H PRN PRN #180 ml 12/25/18 08/01/19 Multi For Her 01/10/19 oxycodone 5 mg PO Q6H PRN #10 tab 08/01/19 Previous Rx's Medication Instructions Recorded albuterol sulfate [ProAir HFA] 2 puff INHALATION Q4H PRN PRN #1 10/02/17 [email or web address] ipratropium-albuterol 3 ml UPD Q4H PRN PRN #180 ml 12/25/18 oxycodone 5 mg PO Q6H PRN #10 tab 08/01/19 Allergies Allergy/AdvReac Type Severity Reaction Status Date / Time Sulfa (Sulfonamide Allergy Severe throat Unverified 08/01/19 12:48 Antibiotics) swelling/can't breath levofloxacin Allergy Intermediate Other (See Unverified 08/01/19 12:48 Comment) General JAMIE: 3 Review of Systems All systems reviewed & are unremarkable except as noted in HPI and below Constitutional Constitutional: Reports as per HPI, Denies chills and Denies fever(s) Eyes Eyes: Denies blurry vision ENT Ears, Nose, Mouth, and Throat: Denies dizziness, Denies sore throat and Denies throat swelling Cardiovascular Cardiovascular: Reports chest pain and Reports dyspnea Respiratory Respiratory: Denies cough and Reports dyspnea Gastrointestinal Gastrointestinal: Denies abdominal pain, Denies diarrhea and Denies vomiting Genitourinary Genitourinary: Denies hematuria and Denies dysuria Musculoskeletal Musculoskeletal: Denies back pain and Denies numbness Integumentary/Breasts Skin/Breast: Denies lesions and Denies rash Neurologic Neurologic: Denies dizziness, Denies focal weakness and Denies numbness Allergic/Immunologic Allergic/Immunologic: Denies throat swelling [facility] Medical History Chronic back pain (Chronic) Pulmonary fibrosis (Chronic) Patient had previous work-up by Dr. Ferrara in [facility] in March 2018. Patient reports that her PFTs did not show underlying COPD, patient has a follow-up with Dr. Giron in February 16, 2019 Surgical History S/P cholecystectomy (Resolved) S/P gastric bypass (Resolved) S/P hernia repair (Resolved) S/P hysterectomy (Resolved) Social History Smoking/Tobacco Use Status: Never Second Hand Exposure: Yes (Secondary to her parents as well as ) Alcohol Intake: never Drug use: Never Substance use type: does not use Household members: family and children 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 [employer] What type of physical activity do you participate in: walking Frequency: daily Do you feel safe at home: Yes Do you feel safe in your relationship?: Yes History History 4 Para Hx # Term Pregnancies 4 Multiple births Hx # Pregnancies Ectopic pregnancies AB induced Hx Number of Living Children AB spontaneous Exam Const General: cooperative, healthy appearing, no acute distress and frail appearing Nutritional Appearance: cachectic HENMT Head: normal to inspection Face and sinus: normal facial exam Eyes General: appearance normal, both eyes and all related structures EOM: EOM intact bilaterally Neck Neck: normal visual inspection and No submandibular swelling Lymphatic: no lymphadenopathy noted Chest Chest: normal inspection of the chest Chest/axillae images: 1. Crepitus 2. Healing wound with [address] from recent tube placement. Resp Effort & Inspection: normal respiratory effort and able to speak in complete sentences Auscultation: clear to auscultation bilaterally Cardio Rate: regular rate Rhythm: regular rhythm GI Inspection: normal to inspection Palpation: soft, not firm, not rigid and nontender Auscultation: normal bowel sounds Back/Spine/Pelvis Pelvis: no pain with anterior-posterior compression Back/spine/pelvis image: 1. 2 x 4 cm erosion with overlying crust without drainage or bleeding. There is no surrounding erythema. The area is tender to touch. Skin General skin exam: no rashes or lesions noted Neuro General: alert, awake and oriented x3 Cognition: normal cognition Speech: speech normal Motor: muscle tone normal throughout Sensory Exam: no sensory deficits noted Extrem General: normal to inspection, full ROM, normal capillary refill, no calf tenderness bilaterally and no edema Psych Appearance: grossly normal Mental Status: mental status grossly normal Speech and Movement: speech and movement normal Affect: normal affect
[2019-08-01] MEDS: Normal Saline 500 ML IV (13:10)
[2019-08-01 13:11] LABS: Absolute Basophil Count 0.01 k/cumm (0.0-0.2); Absolute Eosinophil Count 0.45 k/cumm (0.0-0.7); Absolute Lymphocyte Count 1.89 k/cumm (1.2-3.4); Absolute Monocyte Count 0.46 k/cumm (0.11-0.7); Absolute Neutrophil Count 3.12 k/cumm (1.2-6.7); Basophils % 0.2; Eosinophils % 7.6; HCT 38.9 % (36.0-46.0); HGB 12.6 g/dL (12.0-15.5); Lymphocytes % 31.9; Mean Corp. HGB Concentration 32.4 g/dL (32.0-36.0); Mean Corpuscular Hemoglobin 28.4 pg (27.0-33.0); Mean Corpuscular Volume 87.8 fL (80-95); Mean Platelet Volume 8.6 fL (8.0-11.0); Monocytes % 7.8; Neutrophils % 52.5; Platelet Count 290 x1000/uL (130-400); RBC 4.43 m/cumm (4.00-5.20); RBC Distribution Width 13.9 % (11.7-14.6); White Blood Cell Count 5.93 k/cumm (4.4-10.8)
--- NOTE | 2019-08-01 13:14 | DI.RAD_ITS ---
EXAM: XR PORTABLE CHEST AP INDICATION: s/p biopsy R chest/crepitus R chest/pain/sob. COMPARISON: No exams were available for comparison TECHNIQUE: 2D digital imaging was performed. FINDINGS: The heart size is normal. There are again noted to be severe chronic interstitial changes consistent with fibrosis. There are reduced lung volumes. No gross superimposed infiltrate is seen. No effus ions are identified. There is suture material up under the left diaphragm and also near the right di aphragm. IMPRESSION: Stable severe chronic interstitial changes. No acute abnormality.
[2019-08-01 13:26] LABS: ALT 23 U/L (14-59); AST 26 U/L (15-37); Albumin 3.1 g/dL (3.4-5.0); Alkaline Phosphatase 104 U/L (46-116); Anion Gap 7.9 mmol/L (3-11); BUN 13 mg/dL (7-18); Bilirubin, Total 0.4 mg/dL (0.2-1.0); CO2 29.1 mmol/L (21.0-32.0); CREATININE 0.61 mg/dL (0.55-1.02); Calcium 9.1 mg/dL (8.5-10.1); Chloride 105 mmol/L (98-107); Glucose 97 mg/dL (74-106); Magnesium 1.7 mg/dL (1.8-2.4); Potassium 4.1 mmol/L (3.5-5.1); Sodium 142 mmol/L (136-145); Total Protein 7.6 g/dL (6.4-8.2); Troponin I < 0.05 ng/Ml (<0.06)
--- NOTE | 2019-08-01 13:39 | DI.VRAD_ITS ---
PROCEDURE INFORMATION: Exam: XR Chest, 1 View Exam date and time: 08/01/2019 1:11 PM Age: 68 years old Clinical history: Other: S/P biopsy R chest/crepitus R chest/pain/sob; Additional info: S/P biopsy R chest/crepitus R chest/pain/sob, R/O pneumothorax on R side TECHNIQUE: Imaging protocol: XR of the chest Views: 1 view. COMPARISON: CR XR CHEST 2V PA LATERAL 01/10/2019 11:43 PM FINDINGS: Diffuse interstitial lung disease unchanged from the prior examination consistent with marked interstitial fibrosis. No new focal consolidation. Mild scoliosis of the thoracic spine with convexity to the right. No evidence of pneumothorax. No pleural effusions. Surgical clips in the epigastrium unchanged. IMPRESSION: Diffuse interstitial fibrosis unchanged from prior exam with no evidence of acute cardiopulmonary disease. Dictated and Authenticated by: Jefry Richmond MD. Ordering:ISAAC Nugent MD
[2019-08-01] MEDS: Omnipaque 350 MG/ML 100 ML BTL IJ (13:50)
[2019-08-01] MEDS: Normal Saline - Diluent 50 ML VIAL IV (13:51)
--- NOTE | 2019-08-01 14:00 | DI.CT_ITS ---
EXAM: CT CHEST PE CTA CLINICAL HISTORY: h/o pulmonary fibrosis TECHNIQUE: Post IV contrast COMPARISON: CT chest PE CTA from 10/04/2018 FINDINGS: There is a small right pneumothorax seen anteriorly and laterally. There is a large amount of subcu taneous emphysema seen in the adjacent right chest wall. Patient is status post recent lung biopsy. There is suture material in the right lower superior segment of the right lower lobe and amid an are a of consolidation. A curvilinear structure is seen at the lateral right lung base, also presumably postsurgical. It was not present on the previous exam. The pulmonary arteries and aorta are well op acified with IV contrast. There is no evidence of pulmonary emboli or aortic dissection or aneurysm. Heart size is normal. There are no pleural or pericardial effusions. There are underlying changes of pulmonary fibrosis. Multiple surgical clips are noted beneath the left diaphragm. IMPRESSION: Small right pneumothorax status post lung biopsy. There is extensive right-sided subcutaneous emp hysema.
--- NOTE | 2019-08-01 14:07 | DI.VRAD_ITS ---
Addendum created by Jefry Richmond MD on 08/01/2019 2:12:05 PM EST THIS REPORT CONTAINS FINDINGS THAT MAY BE CRITICAL TO PATIENT CARE. The findings were verbally communicated via telephone conference with ibeth newman at 2:12 PM ESTon 08/01/2019The findings were acknowledged and understood. Initial report created on 08/01/2019 2:07:24 PM EST PROCEDURE INFORMATION: Exam: CT Angiography Chest With Contrast Exam date and time: 08/01/2019 12:51 PM Age: 68 years old Clinical history: Other: H/o pulmonary fibrosis; Prior surgery; Surgery date: 3-7 days post-operative; Surgery type: S/P lung biopsy 07/28/19; Additional info: S/P biopsy R chest/crepitus R chest/pain/sob, R/O pneumothorax on R side TECHNIQUE: Imaging protocol: Computed tomographic angiography of the chest with intravenous contrast. 3D rendering: MIP reconstructed images were created and reviewed. Radiation optimization: All CT scans at this facility use at least one of these dose optimization techniques: automated exposure control; mA and/or kV adjustment per patient size (includes targeted exams where dose is matched to clinical indication); or iterative reconstruction. Contrast material: OMNIPAQUE 350; Contrast volume: 55 ml; Contrast route: IV; COMPARISON: CT chest PE CTA 10/04/2018 9:19 PM FINDINGS: Marked interstitial fibrosis. Very small right-sided pneumothorax. Marked right-sided subcutaneous emphysema. More focal area of consolidation in the posterior upper portion of the right lower lobe. This most likely representing atelectasis although other forms of consolidation or density cannot be excluded. No evidence of pulmonary embolism. No pleural effusions. Thoracic aorta is unremarkable. IMPRESSION: 1. Very small right pneumothorax with marked interstitial fibrosis. 2. Superior segment right lower lobe consolidation as outlined above. Dictated and Authenticated by: Jefry Richmond MD. Ordering:ISAAC Nugent MD
== END 2019-08-01 14:35 | disposition home or self-care (01) ==
PROVIDERS: Emergency Provider Physician Assistant; PCP Physician Assistant Medical
DX: R06.02 Shortness of breath (principal); J93.81 Chronic pneumothorax; J84.10 Pulmonary fibrosis, unspecified; T81.82XA Emphysema (subcutaneous) resulting from a procedure, initial encounter; G89.18 Other acute postprocedural pain; Z98.891 History of uterine scar from previous surgery
CPT/HCPCS: 36415; 71275; 80053; 93005; 96361; 96374; 99285; 71045; 83735; 84484; 85025; 93010; J3490

== ENCOUNTER 2019-12-01 01:39 | Outpatient (CLI) | payer MEDICARE, MEDICAID, SELFPAY ==
[2019-12-01 15:18] LABS: Bilirubin Negative (Negative); Blood Moderate (Negative); Clarity Clear (Clear); Glucose Negative (Negative); Ketones Negative (Negative); Leukocyte Esterase Trace (Negative); Nitrite Negative (Negative); Specific Gravity >= 1.030 (1.005-1.025); Urobilinogen 0.2 EU/dL (Up TO 0.2)
[2019-12-01 15:25] LABS: Abs Immature Grans 0.01 k/cumm (0.0-0.09); Absolute Basophil Count 0.02 k/cumm (0.0-0.2); Absolute Eosinophil Count 0.19 k/cumm (0.0-0.7); Absolute Lymphocyte Count 2.98 k/cumm (1.2-3.4); Absolute Monocyte Count 0.71 k/cumm (0.11-0.7); Absolute Neutrophil Count 4.65 k/cumm (1.2-6.7); Basophils % 0.2; Eosinophils % 2.2; HCT 40.9 % (36.0-46.0); HGB 13.2 g/dL (12.0-15.5); Immature Grans % 0.1 %; Lymphocytes % 34.8; Mean Corp. HGB Concentration 32.3 g/dL (32.0-36.0); Mean Platelet Volume 8.6 fL (8.0-11.0); Monocytes % 8.3; Neutrophils % 54.4; Platelet Count 316 x1000/uL (130-400); RBC Distribution Width 18.8 % (11.7-14.6); White Blood Cell Count 8.56 k/cumm (4.4-10.8)
[2019-12-01 15:29] LABS: Bacteria Few HPF (Negative); C & S Indicated? No; Casts Negative LPF (Negative); Crystals Negative HPF (Negative); Epithelial Cells Rare HPF (Negative); Mucus Trace (Negative); Other Cells Negative (Negative); RBC 20-50 HPF (0-2); WBC 0-2 HPF (0-5)
[2019-12-01 16:18] LABS: ESR 21 mm/hr (0-30)
[2019-12-01 17:36] LABS: ALT 25 U/L (14-59); AST 25 U/L (15-37); Albumin 3.7 g/dL (3.4-5.0); Alkaline Phosphatase 78 U/L (46-116); Anion Gap 8.7 mmol/L (3-11); BUN 22 mg/dL (7-18); Bilirubin, Total 0.4 mg/dL (0.2-1.0); CO2 26.3 mmol/L (21.0-32.0); CREATININE 0.72 mg/dL (0.55-1.02); Chloride 106 mmol/L (98-107); Glucose 89 mg/dL (74-106); Sodium 141 mmol/L (136-145); Total Protein 7.7 g/dL (6.4-8.2)
[2019-12-01 17:39] LABS: C-Reactive Protein < 0.05 mg/dL (0.0-0.3)
[2019-12-01 22:58] LABS: Rheumatoid Factor 12.1 IU/mL (<12.0)
[2019-12-02 09:52] LABS: Cyclic Citrullinated Peptide <2.5 U/mL (<5.0)
[2019-12-02 12:19] LABS: C3 Complement 110 mg/dL (81-157); C4 Complement 20 mg/dL (13-39)
[2019-12-02 18:30] LABS: Complement, Total 64 U/mL (30 - 75)
[2019-12-03 14:12] LABS: ANA Interpretation Positive (Negative); ANA Titer Pattern 1:320 Speckled
[2019-12-06 11:24] LABS: dsDNA Ab, IgG <12.3 IU/mL (<30.0)
[2019-12-08 12:17] LABS: RNP Ab, IgG 2.8 Units (<20.0); SS-A Antibody 1.7 Units (<20.0); SS-B (La) Ab, IgG 9.2 Units (<20.0); Sm (Smith) Ab, IgG 3.3 Units (<20.0)
== END 2019-12-01 01:59 ==
PROVIDERS: PCP Physician Assistant Medical; Visit Provider Internal Medicine Rheumatology
DX: M25.50 Pain in unspecified joint (principal); R76.8 Other specified abnormal immunological findings in serum; J84.9 Interstitial pulmonary disease, unspecified; J84.10 Pulmonary fibrosis, unspecified
CPT/HCPCS: 36415; 80053; 85652; 86200; 81003; 81015; 85025; 86038; 86140; 86160; 86162; 86225; 86235; 86431

== ENCOUNTER 2019-12-14 00:59 | Outpatient (CLI) | payer MEDICARE, MEDICAID, SELFPAY ==
[2019-12-14 08:53] LABS: Bilirubin Negative (Negative); Blood Small (Negative); Clarity Clear (Clear); Glucose Negative (Negative); Ketones Negative (Negative); Leukocyte Esterase Trace (Negative); Nitrite Negative (Negative); Specific Gravity 1.025 (1.005-1.025)
[2019-12-14 09:30] LABS: Bacteria Rare HPF (Negative); C & S Indicated? Yes; Casts Negative LPF (Negative); Crystals Negative HPF (Negative); Epithelial Cells Few HPF (Negative); Mucus Trace (Negative)
== END 2019-12-14 01:19 ==
PROVIDERS: PCP Physician Assistant Medical; Visit Provider Internal Medicine
DX: J84.9 Interstitial pulmonary disease, unspecified (principal)
CPT/HCPCS: 81003; 81015; 87086

== ENCOUNTER 2019-12-14 14:22 | Emergency (ER) | payer MEDICARE, MEDICAID, SELFPAY ==
[2019-12-14] VITALS (30 sets, daily range): BP systolic 116–160; BP diastolic 60–79; PULSE 62–91; RESP 17–22; TEMP 36.7; O2SAT 97–100
[2019-12-14 15:22] LABS: Abs Immature Grans 0.01 k/cumm (0.0-0.09); Absolute Basophil Count 0.01 k/cumm (0.0-0.2); Absolute Lymphocyte Count 1.84 k/cumm (1.2-3.4); Absolute Monocyte Count 0.42 k/cumm (0.11-0.7); Absolute Neutrophil Count 4.08 k/cumm (1.2-6.7); Basophils % 0.2; Eosinophils % 1.5; HCT 39.3 % (36.0-46.0); Immature Grans % 0.2 %; Lymphocytes % 28.5; Mean Corp. HGB Concentration 33.1 g/dL (32.0-36.0); Mean Corpuscular Hemoglobin 30.6 pg (27.0-33.0); Mean Corpuscular Volume 92.5 fL (80-95); Mean Platelet Volume 8.4 fL (8.0-11.0); Monocytes % 6.5; Neutrophils % 63.1; Platelet Count 277 x1000/uL (130-400); RBC 4.25 m/cumm (4.00-5.20); RBC Distribution Width 18.4 % (11.7-14.6); White Blood Cell Count 6.46 k/cumm (4.4-10.8)
[2019-12-14 15:37] LABS: PTT Activated 21.2 sec (21.0-31.4); Prothrombin Time 9.9 sec (9.3-11.0)
[2019-12-14 15:44] LABS: ALT 22 U/L (14-59); AST 24 U/L (15-37); Albumin 3.3 g/dL (3.4-5.0); Alkaline Phosphatase 71 U/L (46-116); Anion Gap 8.1 mmol/L (3-11); BUN 20 mg/dL (7-18); Bilirubin, Total 0.2 mg/dL (0.2-1.0); CO2 24.9 mmol/L (21.0-32.0); CREATININE 0.78 mg/dL (0.55-1.02); Calcium 8.9 mg/dL (8.5-10.1); Chloride 107 mmol/L (98-107); Glucose 88 mg/dL (74-106); NT-proBNP 293 pg/mL (<300); Potassium 3.5 mmol/L (3.5-5.1); Sodium 140 mmol/L (136-145); Total Protein 7.6 g/dL (6.4-8.2)
[2019-12-14 15:47] LABS: TSH (W/Ref FT4) 2.32 uIU/mL (0.36-3.74)
[2019-12-14 15:50] LABS: Troponin I < 0.05 ng/Ml (<0.06)
[2019-12-14 16:42] LABS: D-Dimer 558 ng/mlFEU (<500)
--- NOTE | 2019-12-14 17:13 | DI.RAD_ITS ---
EXAM: XR CHEST 2V PA LATERAL CLINICAL HISTORY: exertional SOB TECHNIQUE: COMPARISON: XR PORTABLE CHEST AP from 08/01/2019 FINDINGS: The heart is not enlarged. There are severe diffuse fibrotic changes and presumed honeycombing of nicole th lungs. No focal consolidation, no gross interval change appearance comparison with the examinatio n of 08/01/2019. No pleural effusion seen. IMPRESSION: No evidence of acute process.
--- NOTE | 2019-12-14 17:17 | DI.VRAD_ITS ---
PROCEDURE INFORMATION: Exam: XR Chest, 2 Views Exam date and time: 12/14/2019 5:08 PM Age: 69 years old Clinical indication: Other: SOB TECHNIQUE: Imaging protocol: XR of the chest Views: 2 views. COMPARISON: CR XR PORTABLE CHEST AP 08/01/2019 12:56 PM FINDINGS: Lungs: Diffuse interstitial pulmonary fibrosis, similar to prior exam. No mass or focal consolidation. Pleural space: Unremarkable. No pleural effusion. No pneumothorax. Heart/Mediastinum: Unremarkable. No cardiomegaly. Bones/joints: Degenerative changes of the spine, with mild dextrocurvature. Other findings: Multiple clips in the upper left abdomen. IMPRESSION: Diffuse interstitial pulmonary fibrosis, similar to prior exam. No mass or focal consolidation. Dictated and Authenticated by: Tiffanie Payne MD. Ordering:SUNNY Arnett MD
--- NOTE | 2019-12-14 17:24 | ED.GENADUL_ITS ---
Discharge Plan Disposition Patient Disposition: HOME Condition: Good Discharge Details Chief Complaint: SOB Clinical Impression: Pulmonary fibrosis, Acute dyspnea Primary Care Provider: Chloe Barrett ED Provider: Melquiades Rogers Home Meds and New Rx's Prescriptions: New prednisone 50 MG tablet 50 mg PO DAILY Qty: 5 RF: 0 No Action albuterol sulfate [ProAir HFA] 8.5 GM HFA aerosol inhaler 2 puff Inhalation Q4H PRN PRN (Reason: wheezing/dyspnea) Qty: 1 RF: 0 mycophenolate mofetil 500 mg Tablet 500 mg PO DAILY RF: 0 benzonatate 100 mg Capsule 100 mg PO QID RF: 0 megestrol 625 mg/5 mL Suspension 625 mg RF: 0 nintedanib 100 mg Capsule 250 mg PO RF: 0 tramadol 50 mg Tablet 100 mg PO BID PRNRF: 0 ipratropium-albuterol 0.5 mg-3 mg(2.5 mg base)/3 mL Solution For Nebulization 3 ml UPD Q4H PRN PRN (Reason: shortness of breath) Qty: 180 RF: 0 Multi For Her 18 mg iron-600 mcg-40 mcg Capsule 18 cap DAILY RF: 0 oxycodone 5 mg tablet 5 mg PO Q6H PRN (Reason: pain) Qty: 10 RF: 0 Discharge Instructions Instructions: Dyspnea (ED) Additional Instructions: At this time your work-up shows no signs of heart attack, heart strain, or pneumonia or blood clots. I suspect that your shortness of breath is secondary to your chronic pulmonary fibrosis and a mild exacerbation of this. Please take the steroid as directed, please take 2 puffs from your home inhaler every 4-6 hours for the next few days to help. I would recommend following up closely with your primary care provider to set up a stress test on an outpatient basis. If you notice any worsening of your symptoms, or any new symptoms such as vomiting, diarrhea, fever, chills, shortness of breath, chest pain, numbness, weakness, or fainting , please return immediately to the emergency department for reevaluation. Please follow up with your primary care provider as soon as possible for reassessment and reevaluation. As always, it was a pleasure participating in your medical care today. Referrals: Chloe Barrett [Primary Care Provider] - Medical Decision Making This is a 69-year-old female with a past medical history of severe pulmonary fibrosis, who presents today for evaluation of shortness of breath. The patient states that for the last 24 hours she has had increased shortness of breath, worse with activity, improved with rest. She denies any associated chest pain, chest tightness, bandlike sensation on the chest or chest heaviness. She does admit to a chronic cough that is unchanged. She denies hemoptysis. Denies PE risk factors such as recent long car rides, immobilization, recent surgery, prior history of DVT or PE, family history of PE or DVT, morbid obesity, exogenous estrogen and smoking, hemoptysis, history of cancer. The patient did state that when she was in the shower earlier today she got so short of breath that she became lightheaded. Of her right now she states that she feels relatively well. No other complaints or modifying factors. She denies any history of cardiac disease or CT. Exam is notably unremarkable, vital signs are stable, lung sounds are stable. No evidence of significant respiratory distress. Differential at this time is highest for COPD versus bronchitis, but PE and cardiac etiology is on the differential. Will get a d-dimer, evaluate cardiac, give steroids albuterol inhaler, and reassess. 6:15 PM On reassessment patient continues to feel very well. She ambulated around the ED well without any difficulty shortness of breath or return of her symptoms. Delta troponin, initial troponin, and serial EKGs are all unremarkable. Laboratory work-up unremarkable. D-dimer is negative on age adjustment. No bandemia or left shift. No other abnormalities. Thyroid level normal, no signs of right heart strain with normal proBNP. This time patient symptoms are likely secondary to mild bronchitis, or her chronic pulmonary fibrosis. Will give steroids for home use, and recommend continuation of her inhaler and spacer. I did discuss with the patient recommendations for outpatient follow-up for potential stress testing. She has made it very clear that she will not be staying overnight here at the hospital and would like to be discharged to go home. With no evidence of pneumonia or other acute abnormality on x-ray feel we can respect her wishes. Patient will be discharged home. Discussed red flags which to return. I have extensively reviewed the treatment plan and discharge instructions with the patient and their family. I have addressed all patient concerns at this time. The patient and family was made aware of what symptoms to monitor for that would warrant a return to the emergency department. Discussed the plan with the patient and family, they demonstrate verbal understanding and agreement with our assessment and plan at this time. EKG 14: 51 Rate 75, intervals normal, sinus rhythm, no significant ST elevations or depressions, no evidence of STEMI, no significant Q waves. EKG 17: 36 Rate 77, intervals normal, sinus rhythm, no significant ST elevations or depressions. No evidence of STEMI. No other abnormalities. FINDINGS: Lungs: Diffuse interstitial pulmonary fibrosis, similar to prior exam. No mass or focal consolidation. Pleural space: Unremarkable. No pleural effusion. No pneumothorax. Heart/Mediastinum: Unremarkable. No cardiomegaly. Bones/joints: Degenerative changes of the spine, with mild dextrocurvature. Other findings: Multiple clips in the upper left abdomen. IMPRESSION: Diffuse interstitial pulmonary fibrosis, similar to prior exam. No mass or focal consolidation. Thank you for allowing us to participate in the care of your patient. Dictated and Authenticated by: Tiffanie Payne M [facility] General Date/Time Provider Initiated Documentation: 12/14/19 14:22 . [facility] Narrative: This is a 69-year-old female with a past medical history of severe pulmonary fibrosis, who presents today for evaluation of shortness of breath. The patient states that for the last 24 hours she has had increased shortness of breath, worse with activity, improved with rest. She denies any associated chest pain, chest tightness, bandlike sensation on the chest or chest heaviness. She does admit to a chronic cough that is unchanged. She denies hemoptysis. Denies PE risk factors such as recent long car rides, immobilization, recent surgery, prior history of DVT or PE, family history of PE or DVT, morbid obesity , exogenous estrogen and smoking, hemoptysis, history of cancer. The patient did state that when she was in the shower earlier today she got so short of breath that she became lightheaded. Of her right now she states that she feels relatively well. No other complaints or modifying factors. She denies any history of cardiac disease or CT. Related Data Home Medications Medication Instructions Recorded Confirmed albuterol sulfate [ProAir HFA] 2 puff INHALATION Q4H PRN PRN #1 10/02/17 12/14/19 [email or web address] tramadol 100 mg PO BID PRN 12/24/18 12/14/19 ipratropium-albuterol 3 ml UPD Q4H PRN PRN #180 ml 12/25/18 12/14/19 Multi For Her 18 cap DAILY 01/10/19 12/14/19 oxycodone 5 mg PO Q6H PRN #10 tab 08/01/19 benzonatate 100 mg PO QID 12/14/19 12/14/19 megestrol 625 mg 12/14/19 mycophenolate mofetil 500 mg PO DAILY 12/14/19 12/14/19 nintedanib 250 mg PO 12/14/19 prednisone 50 mg PO DAILY #5 tab 12/14/19 Previous Rx's Medication Instructions Recorded albuterol sulfate [ProAir HFA] 2 puff INHALATION Q4H PRN PRN #1 10/02/17 [email or web address] ipratropium-albuterol 3 ml UPD Q4H PRN PRN #180 ml 12/25/18 oxycodone 5 mg PO Q6H PRN #10 tab 08/01/19 prednisone 50 mg PO DAILY #5 tab 12/14/19 Allergies Allergy/AdvReac Type Severity Reaction Status Date / Time Sulfa (Sulfonamide Allergy Severe throat Unverified 12/14/19 14:44 Antibiotics) swelling/can't breath levofloxacin Allergy Intermediate Other (See Unverified 12/14/19 14:44 Comment) General Stated Complaint: SOB JAMIE: 3 Review of Systems All systems reviewed & are unremarkable except as noted in HPI and below PFSH Social History Smoking/Tobacco Use Status: Never Second Hand Exposure: Yes (Secondary to her parents as well as ) Alcohol Intake: never Drug use: Never Substance use type: does not use Household members: family and children 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 [employer] What type of physical activity do you participate in: walking Frequency: daily Do you feel safe at home: Yes Do you feel safe in your relationship?: Yes History History 4 Para Hx # Term Pregnancies 4 Multiple births Hx # Pregnancies Ectopic pregnancies AB induced Hx Number of Living Children AB spontaneous Exam Narrative Exam Narrative: 1.Const: Well-nourished, Well-developed, appearing stated age 2.Eyes: PERRL, no conjunctival injection, and symmetrical lids. 3.ENT: Atraumatic external nose and ears. Moist MM. Neck: Symmetric, trachea midline, No thyromegaly. 4.CVS: +S1/S2, No murmurs or gallops. Peripheral pulses 2+ and equal in all extremities. Brisk capillary refill in all extremities. 5.RESP: Unlabored respiratory effort. Minimal wheeze, no rhonchi or rales. 6.GI: Soft, Nontender/Nondistended, No hepatosplenomegaly. No guarding or rebound. 7.MSK: Normocephalic/Atraumatic, Extremities w/o deformity or ttp No cyanosis or clubbing, Normal movement of all extremities 8.Skin: Warm, Dry. No rashes or lesions. 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 Sensation grossly intact, no focal neurologic deficits. 10.Psych: (AAO) x3. Appropriate mood and affect Course Vital Signs Vital signs: Vital Signs Temperature 36.7 C 12/14/19 14:41 Pulse 85 12/14/19 14:41 Respiratory Rate 22 12/14/19 14:41 Blood Pressure 155/79 H 12/14/19 14:41 Pulse Oximetry 99 12/14/19 14:41 Temperature 36.7 C 12/14/19 14:41 Temperature Source Tympanic 12/14/19 14:41 Pulse 85 12/14/19 14:41 Respiratory Rate 17 12/14/19 15:29 Respiratory Effort 12/14/19 15:29 Respiratory Depth Normal 12/14/19 15:29 Respiratory Pattern Normal 12/14/19 15:29 Blood Pressure 155/79 H 12/14/19 14:41 Blood Pressure Position Sitting 12/14/19 14:41 Pulse Oximetry 99 12/14/19 14:41 Oxygen Delivery Method Room Air 12/14/19 14:41 Oxygen Flow Rate 0 12/14/19 14:41 Pain Level 0 12/14/19 14:41 Lab/Test Results Lab/Test Results: Laboratory Tests Range/Units 12/14/19 12/14/19 12/14/19 14:59 15:09 15:09 WBC (4.4-10.8) k/cumm RBC (4.00-5.20) m/cumm Hgb (12.0-15.5) g/dL Hct (36.0-46.0) % MCV (80-95) fL MCH (27.0-33.0) pg MCHC (32.0-36.0) g/dL RDW (11.7-14.6) % Plt Count (130-400) x1000/uL MPV (8.0-11.0) fL Immature Gran % % Neutrophils % Lymphocytes % Monocytes % Eosinophils % Basophils % Absolute Neutrophils (1.2-6.7) k/cumm Absolute Lymphocytes (1.2-3.4) k/cumm Absolute Monocytes (0.11-0.7) k/cumm Absolute Eosinophils (0.0-0.7) k/cumm Absolute Basophils (0.0-0.2) k/cumm PT (9.3-11.0) sec INR (0.9-1.1) APTT (21.0-31.4) sec D-Dimer (<500) ng/mlFEU 558 H Sodium (136-145) mmol/L 140 Potassium (3.5-5.1) mmol/L 3.5 Chloride (98-107) mmol/L 107 Carbon Dioxide (21.0-32.0) mmol/L 24.9 Anion Gap (3-11) mmol/L 8.1 BUN (7-18) mg/dL 20 H Creatinine (0.55-1.02) mg/dL 0.78 Estimated GFR/1.73 m2 (mL/min/1.73m2) >= 60.00 Glucose (74-106) mg/dL 88 Calcium (8.5-10.1) mg/dL 8.9 Total Bilirubin (0.2-1.0) mg/dL 0.2 AST (15-37) U/L 24 ALT (14-59) U/L 22 Alkaline Phosphatase (46-116) U/L 71 Troponin I (<0.06) ng/Ml < 0.05 NT-Pro-B Natriuret Pep (<300) pg/mL 293 Total Protein (6.4-8.2) g/dL 7.6 Albumin (3.4-5.0) g/dL 3.3 L TSH (0.36-3.74) uIU/mL 2.32 Range/Units 04/28/20 04/28/20 15:09 15:09 WBC (4.4-10.8) k/cumm 6.46 RBC (4.00-5.20) m/cumm 4.25 Hgb (12.0-15.5) g/dL 13.0 Hct (36.0-46.0) % 39.3 MCV (80-95) fL 92.5 MCH (27.0-33.0) pg 30.6 MCHC (32.0-36.0) g/dL 33.1 RDW (11.7-14.6) % 18.4 H Plt Count (130-400) x1000/uL 277 MPV (8.0-11.0) fL 8.4 Immature Gran % % 0.2 Neutrophils % 63.1 Lymphocytes % 28.5 Monocytes % 6.5 Eosinophils % 1.5 Basophils % 0.2 Absolute Neutrophils (1.2-6.7) k/cumm 4.08 Absolute Lymphocytes (1.2-3.4) k/cumm 1.84 Absolute Monocytes (0.11-0.7) k/cumm 0.42 Absolute Eosinophils (0.0-0.7) k/cumm 0.10 Absolute Basophils (0.0-0.2) k/cumm 0.01 PT (9.3-11.0) sec 9.9 INR (0.9-1.1) 1.0 APTT (21.0-31.4) sec 21.2 D-Dimer (<500) ng/mlFEU Sodium (136-145) mmol/L Potassium (3.5-5.1) mmol/L Chloride (98-107) mmol/L Carbon Dioxide (21.0-32.0) mmol/L Anion Gap (3-11) mmol/L BUN (7-18) mg/dL Creatinine (0.55-1.02) mg/dL Estimated GFR/1.73 m2 (mL/min/1.73m2) Glucose (74-106) mg/dL Calcium (8.5-10.1) mg/dL Total Bilirubin (0.2-1.0) mg/dL AST (15-37) U/L ALT (14-59) U/L Alkaline Phosphatase (46-116) U/L Troponin I (<0.06) ng/Ml NT-Pro-B Natriuret Pep (<300) pg/mL Total Protein (6.4-8.2) g/dL Albumin (3.4-5.0) g/dL TSH (0.36-3.74) uIU/mL
[2019-12-14] MEDS: Albuterol HFA 8 GM 60 PUFF INH IH (17:43)
[2019-12-14] MEDS: methylPREDNISolone SUCC 125 MG VIAL IVP (17:43)
[2019-12-14 17:59] LABS: Troponin I < 0.05 ng/Ml (<0.06)
== END 2019-12-14 18:16 | disposition home or self-care (01) ==
PROVIDERS: Emergency Provider Student in an Organized Health Care Education/Training Program; PCP Physician Assistant Medical
DX: J84.10 Pulmonary fibrosis, unspecified (principal); R06.09 Other forms of dyspnea
CPT/HCPCS: 80053; 93005; 96374; 99285; 71046; 81003; 81015; 83880; 84443; 84484; 85025; 85379; 85610; 85730; 87086; 93010; 99284; J2930

== ENCOUNTER 2019-12-28 01:19 | Outpatient (CLI) | payer MEDICARE, MEDICAID, SELFPAY ==
[2019-12-28 11:16] LABS: HGB 14.6 g/dL (12.0-15.5); Mean Corp. HGB Concentration 32.4 g/dL (32.0-36.0); Mean Corpuscular Volume 95.5 fL (80-95); Mean Platelet Volume 8.2 fL (8.0-11.0); Platelet Count 348 x1000/uL (130-400); RBC 4.71 m/cumm (4.00-5.20); RBC Distribution Width 18.1 % (11.7-14.6); White Blood Cell Count 14.18 k/cumm (4.4-10.8)
[2019-12-28 11:30] LABS: ALT 37 U/L (14-59); AST 31 U/L (15-37); Alkaline Phosphatase 84 U/L (46-116); Bilirubin, Direct 0.09 mg/dL (0.00-0.20); Bilirubin, Total 0.3 mg/dL (0.2-1.0); Total Protein 7.6 g/dL (6.4-8.2)
== END 2019-12-28 01:39 ==
PROVIDERS: PCP Physician Assistant Medical; Visit Provider Internal Medicine
DX: J84.10 Pulmonary fibrosis, unspecified (principal)
CPT/HCPCS: 36415; 80076; 85027

== ENCOUNTER 2020-01-04 20:34 | Emergency (ER) | payer MEDICARE, MEDICAID, SELFPAY ==
[2020-01-04 20:40] VITALS: BP 163/86; PULSE 100; RESP 26; TEMP 37.2; O2SAT 99
--- NOTE | 2020-01-04 20:45 | DI.RAD_ITS ---
EXAM: XR RIBS RT W PA LAT CHEST CLINICAL HISTORY: R sided rib pain TECHNIQUE: 2D digital imaging was performed. COMPARISON: CR CHEST 2 VIEWS PA,LAT from 04/03/2018 CR,XR XR CHEST 2V PA LATERAL from 12/14/2019 FINDINGS: MEDIASTINUM: Normal. HEART: Normal. PULMONARY VASCULATURE: Normal. LUNGS: Diffuse pulmonary fibrosis is again noted. There is an ovoid area in the central right lung o verlying the 7th rib. It has a more masslike appearance compared to the prior examination. This may represent area of consolidation. PLEURAL SPACE: No pleural effusion or pneumothorax. BONE:No evidence of a rib fracture. OTHER FINDINGS:Surgical clips are again seen in both the left and right upper abdomen. IMPRESSION: 1. No evidence of a rib fracture. 2. Diffuse pulmonary fibrosis. 3. Masslike area in the right mid lung. This was not as apparent on the prior examination from 2019. This may represent an area of developing consolidation. Mass cannot be entirely excluded. If there is continued clinical concern a CT scan of the chest should be considered for further evaluati on. DATA REPOSITORY: RADIATION DOSE DELIVERED:
--- NOTE | 2020-01-04 20:47 | NUR.NOTE ---
Reports pain to right flank/axilla and shoulder after picking up a toolbox on 12/29. Pt reports pain immediately after picking up. Denies CP. Pain worse with moving and breathing, worse on palpation. Taking tylenol and tramadol at home. Reports SOB associated with pain. Denies fevers. tested last week per her sap architect, denies symptoms or exposure to covid.
[2020-01-04] MEDS: oxyCODONE 5 mg/Acetaminophen 325 mg TAB 1 TAB PO ×2 (20:55→21:26)
--- NOTE | 2020-01-04 20:58 | ED.GENADUL_ITS ---
Discharge Plan Disposition Patient Disposition: HOME Condition: Stable Discharge Details Chief Complaint: Chest/Rib Clinical Impression: Chest wall pain Primary Care Provider: Chloe Barrett ED Provider: Mathew Guillen Home Meds and New Rx's Prescriptions: New lidocaine [Lidoderm] 5 % adhesive patch,medicated 1 patch TP DAILY Qty: 5 RF: 0 oxycodone-acetaminophen [Percocet] 5-325 mg tablet 1 tab PO Q8H PRNQty: 8 RF: 0 Continued albuterol sulfate [ProAir HFA] 8.5 GM HFA aerosol inhaler 2 puff Inhalation Q4H PRN PRN (Reason: wheezing/dyspnea) Qty: 1 RF: 0 mycophenolate mofetil 500 mg Tablet 500 mg PO DAILY RF: 0 benzonatate 100 mg Capsule 100 mg PO QID PRNRF: 0 megestrol 625 mg/5 mL Suspension 625 mg PO DAILY RF: 0 nintedanib 100 mg Capsule 150 mg PO BID RF: 0 tramadol 50 mg Tablet 100 mg PO BID PRNRF: 0 ipratropium-albuterol 0.5 mg-3 mg(2.5 mg base)/3 mL Solution For Nebulization 3 ml UPD Q4H PRN PRN (Reason: shortness of breath) Qty: 180 RF: 0 Discharge Instructions Instructions: Chest Wall Pain (ED) Additional Instructions: Lidoderm patches and Percocet as directed. Percocet may cause drowsiness and constipation. Be sure to have ample water intake, fiber intake, and you may want to take an kmed-jhl-[id number] stool softener. Cool and/or warm compresses every 2 hours for 20 minutes. Gentle stretching as tolerated. Please watch for new or worsening symptoms and return to the ER for any concerns. I do recommend that you contact your primary care provider tomorrow for prompt outpatient reevaluation. If you require additional prescriptions for narcotic pain medication I do recommend discussing this with your primary care provider. Medical Decision Making <SARTHAK Cox - Last Filed: 01/04/20 21:59> 69-year-old female with a history of pulmonary fibrosis who reports that on she felt acute pain when picking up roughly a 10 pound toolbox. She has tried [id number]-[id number] Tylenol but only partially helps with her discomfort. Patient appears well, nontoxic. The pain does not radiate in any direction. She denies any abdominal pain, nausea, vomiting. No pain or swelling in her legs. Based upon her presentation and evaluation certainly appears to be musculoskeletal in nature. During my evaluation her heart rate was 92, respiratory rate of 20, and O2 sat 99% on room air. Given the nature of her discomfort, extremely low suspicion of PE. Low suspicion of dissection, ACS, infectious process. I do hear breath sounds throughout, less likely pneumothorax. Given her age and comorbidities, will obtain an EKG. Will obtain chest x-ray with right rib series. Case and work-up discussed with Dr. Watt, please see his note Discussed EKG and x-ray with patient. Reports minimal relief with single Percocet. Patient given a Lidoderm patch and a second Percocet. On reevaluation she does report that the medication has helped some and she is comfortable with discharge home however is requesting prescription for analgesia. Medical Records Medical records reviewed: Yes I reviewed the patient's medical records. Imaging Data Radiologic Study: Attestation: I personally reviewed and interpreted this imaging study as follows: Imaging: X-Ray My impression: Rather impressive pulmonary fibrosis however no acute consolidation, traumatic injury such as displaced rib fracture or pneumothorax. Virtual radiology read as increasing/lung markings. Question masslike consolidation in the right midlung field measuring 2.4 and 2.[address] for further evaluation. ECG Data Attestation: I personally reviewed and interpreted this ECG (s) as follows: Interpretation: EKG performed at 2058. Interpreted and reviewed with Dr. Watt. Sinus rhythm, ventricular rate 94. No acute ST elevation or depression segments. <Lars Watt MD - Last Filed: 01/04/20 21:37> Patient was seen and evaluated by me. Patient discussed with SARTHAK Guillen. EKG and x-rays reviewed. Agree with note and plan as outlined by SARTHAK Guillen. HPI <SARTHAK Cox - Last Filed: 01/04/20 21:59> General Mode of arrival: ambulatory . Date/Time Provider Initiated Documentation: 01/04/20 20:35 . Limitations to Documentation: no limitations . Information obtained by: patient . HPI Narrative: This is a 69-year-old female with a history of pulmonary fibrosis presenting with right-sided chest wall pain that began 5 days ago when picking up a toolbox that was approximately 10 pounds. She reports that she was asymptomatic prior to lifting a toolbox and she felt an acute sudden pain with the lifting. She feels as though this is likely a pulled muscle but because the pain is still present and not completely resolved with Tylenol she wanted to be evaluated. She reports that movement of her right arm, engaging her core, coughing, sneezing, taking a deep breath all make her pain worse. She reports a mild baseline dry cough which is unchanged. She denies any abdominal pain, nausea, vomiting, pain in her back, pain or swelling in her legs. 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 Related Data Home Medications Medication Instructions Recorded Confirmed albuterol sulfate [ProAir HFA] 2 puff INHALATION Q4H PRN PRN #1 10/02/17 01/04/20 [email or web address] tramadol 100 mg PO BID PRN 12/24/18 01/04/20 ipratropium-albuterol 3 ml UPD Q4H PRN PRN #180 ml 12/25/18 01/04/20 benzonatate 100 mg PO QID PRN 12/14/19 01/04/20 megestrol 625 mg PO DAILY 12/14/19 01/04/20 mycophenolate mofetil 500 mg PO DAILY 12/14/19 01/04/20 nintedanib 150 mg PO BID 12/14/19 01/04/20 lidocaine [Lidoderm] 1 patch TP DAILY #5 each 01/04/20 oxycodone-acetaminophen [Percocet] 1 tab PO Q8H PRN #8 tab 01/04/20 Previous Rx's Medication Instructions Recorded albuterol sulfate [ProAir HFA] 2 puff INHALATION Q4H PRN PRN #1 10/02/17 hfa.[email or web address] ipratropium-albuterol 3 ml UPD Q4H PRN PRN #180 ml 12/25/18 lidocaine [Lidoderm] 1 patch TP DAILY #5 each 01/04/20 oxycodone-acetaminophen [Percocet] 1 tab PO Q8H PRN #8 tab 01/04/20 Allergies Allergy/AdvReac Type Severity Reaction Status Date / Time Sulfa (Sulfonamide Allergy Severe throat Unverified 12/14/19 14:44 Antibiotics) swelling/can't breath levofloxacin Allergy Intermediate Other (See Unverified 12/14/19 14:44 Comment) General Stated Complaint: Chest/Rib JAMIE: 3 Review of Systems <SARTHAK Cox - Last Filed: 01/04/20 21:59> Constitutional Constitutional: Denies fever(s), Denies headache(s) and Denies weakness ENT Ears, Nose, Mouth, and Throat: Denies headache(s) Cardiovascular Cardiovascular: Reports chest pain (Right-sided chest wall) and Denies dyspnea Respiratory Respiratory: Reports cough (Mild, dry, baseline) and Denies dyspnea Gastrointestinal Gastrointestinal: Denies abdominal pain, Denies nausea and Denies vomiting Musculoskeletal Musculoskeletal: Denies back pain, Denies numbness and Denies tingling Integumentary/Breasts Skin/Breast: Denies rash Neurologic Neurologic: Denies headache(s), Denies numbness, Denies tingling and Denies weakness PFSH <SARTHAK Cox - Last Filed: 01/04/20 21:59> Medical History Chronic back pain (Chronic) Pulmonary fibrosis (Chronic) Patient had previous work-up by Dr. Ferrara in [facility] in March 2018. Patient reports that her PFTs did not show underlying COPD, patient has a follow-up with Dr. 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 What type of physical activity do you participate in: walking Frequency: daily Do you feel safe at home: Yes Do you feel safe in your relationship?: Yes History History 4 Para Hx # Term Pregnancies 4 Multiple births Hx # Pregnancies Ectopic pregnancies AB induced Hx Number of Living Children AB spontaneous Exam <SARTHAK Cox - Last Filed: 01/04/20 21:59> Const General: cooperative, healthy appearing, comfortable and no acute distress Orientation: alert and awake [facility] Head: normal to inspection, normocephalic and atraumatic Mouth: moist mucous membranes Throat: posterior oropharynx normal Eyes Conjunctivae: conjunctivae normal Neck Neck: normal visual inspection, full ROM, meningismus present, trachea midline and supple Chest Chest: normal inspection of the chest, no crepitus, tenderness (Diffuse right sided mid clavicular to mid axillary) and No rash Resp Effort & Inspection: normal respiratory effort and able to speak in complete sentences Auscultation: diminished lung sounds bilaterally (Basis) and wheezes (Diffuse, mild, rare) Cardio Rate: regular rate Rhythm: regular rhythm GI Palpation: soft, not firm, no guarding, not rigid and nontender Back/Spine/Pelvis Back: No back tenderness Skin General skin exam: no rashes or lesions noted Neuro General: patient alert, patient awake, moves all extremities and no focal motor deficits Gait: normal gait Sensory Exam: no sensory deficits noted Extrem General: normal to inspection, full ROM, capillary refill normal, no pedal edema and no calf tenderness Psych Appearance: grossly normal Mental Status: mental status grossly normal Course <SARTHAK Cox - Last Filed: 01/04/20 21:59> Vital Signs Vital signs: Vital Signs Temperature 37.2 C 01/04/20 20:40 Pulse 100 H 01/04/20 20:40 Respiratory Rate 26 H 01/04/20 20:40 Blood Pressure 163/86 H 01/04/20 20:40 Pulse Oximetry 99 01/04/20 20:40 Temperature 37.2 C 01/04/20 20:40 Temperature Source Skin 01/04/20 20:40 Pulse 100 H 01/04/20 20:40 Respiratory Rate 26 H 01/04/20 20:40 Respiratory Effort Incrsd Work of Breathing 01/04/20 20:45 Respiratory Depth Shallow 01/04/20 20:45 Respiratory Pattern Tachypnea 01/04/20 20:45 Blood Pressure 163/86 H 01/04/20 20:40 Blood Pressure Position Sitting 01/04/20 20:40 Pulse Oximetry 99 01/04/20 20:40 Oxygen Delivery Method Room Air 01/04/20 20:40 Oxygen Flow Rate 0 01/04/20 20:40 Pain Level 10 01/04/20 20:55
--- NOTE | 2020-01-04 21:24 | DI.VRAD_ITS ---
PROCEDURE INFORMATION: Exam: XR Right Ribs Exam date and time: 01/04/2020 9:04 PM Age: 69 years old Clinical indication: Other: Right flank pain, normal labs, no hematuria. ; Additional info: HX of pulmonary fibrosis, gastric bypass TECHNIQUE: Imaging protocol: XR Right ribs. Views: 2 views. COMPARISON: CR XR CHEST 2V PA LATERAL 12/14/2019 5:07 PM FINDINGS: Bones/joints: Normal. Soft tissues: Normal. IMPRESSION: No acute findings. PROCEDURE INFORMATION: Exam: XR Chest, 2 Views Exam date and time: 01/04/2020 9:04 PM Age: 69 years old Clinical indication: Other: Right flank pain, normal labs, no hematuria. ; Additional info: HX of pulmonary fibrosis, gastric bypass TECHNIQUE: Imaging protocol: XR of the chest Views: 2 views. COMPARISON: CR XR CHEST 2V PA LATERAL 12/14/2019 5:07 PM FINDINGS: Lungs: Increased interstitial lung markings suggesting edema, infection or fibrotic changes. Questionable masslike consolidations in the right mid lung field measuring 2.4 and 2.[address] for further evaluation. These appears slightly more prominent when compared to the prior exam. Pleural space: Unremarkable. No pleural effusion. No pneumothorax. Heart/Mediastinum: Unremarkable. No cardiomegaly. Bones/joints: Mild scoliosis with degenerative changes in the spine. Other findings: Status post cholecystectomy and gastric surgery. IMPRESSION: Increased interstitial lung markings suggesting edema, infection or fibrotic changes. Questionable masslike consolidations in the right mid lung field measuring 2.4 and 2.[address] for further evaluation. These appears slightly more prominent when compared to the prior exam. Dictated and Authenticated by: Radames Soliz MD. Ordering:THOMAS Carmona MD
[2020-01-04] MEDS: Lidocaine 5% Patch 1 PATCH TP (21:26)
--- NOTE | 2020-01-04 21:51 | NUR.NOTE ---
Spoke with pt daughter with pt permission, updated on condition and plan. pt reports pain improved after medications.
[2020-01-04 22:02] VITALS: BP 147/70; PULSE 89; RESP 24; TEMP 36.7; O2SAT 96
--- NOTE | 2020-01-05 18:45 | NUR.NOTE ---
Nursing Note: At SARTHAK Fernandez request I faxed the xray reports and MD note to [facility] where Chloe Barrett, PCP works. Meagan Watters
== END 2020-01-04 22:10 | disposition home or self-care (01) ==
PROVIDERS: Emergency Provider Physician Assistant; PCP Physician Assistant Medical
DX: R07.81 Pleurodynia (principal); X50.0XXA Overexertion from strenuous movement or load, initial encounter
CPT/HCPCS: 93005; 99284; 71046; 71100; 93010

== ENCOUNTER 2020-04-09 20:24 | Emergency (ER) | payer MEDICARE, MEDICAID, SELFPAY ==
[2020-04-09 20:29] VITALS: PULSE 97; RESP 22; TEMP 36.9; O2SAT 95
--- NOTE | 2020-04-09 20:30 | DI.RAD_ITS ---
EXAM: XR FINGER LT RING CLINICAL HISTORY: dog bit at tip, r/o fx TECHNIQUE: COMPARISON: No exams were available for comparison FINDINGS: Three views were obtained. There are mildly displaced mildly comminuted fractures of the distal aspe ct of the middle phalanx and the proximal aspect of the distal phalanx of the ring finger. Fractures involve the articular surfaces of both bones. No additional fracture seen. There is moderate soft tissue swelling finger. IMPRESSION: RADIATION DOSE DELIVERED: Total DLP
--- NOTE | 2020-04-09 20:33 | W.ED.GENAD ---
Discharge Plan Disposition Patient Disposition: HOME Condition: Good Discharge Details Chief Complaint: AnimalBite Clinical Impression: Dog bite, Cellulitis of left ring finger Primary Care Provider: Chloe Barrett ED Provider: Melquiades Rogers Home Meds and New Rx's Prescriptions: New amoxicillin-pot clavulanate [Augmentin] 875-125 mg tablet 1 tab PO BID Qty: 20 RF: 0 Continued albuterol sulfate [ProAir HFA] 8.5 GM HFA aerosol inhaler 2 puff Inhalation Q4H PRN PRN (Reason: wheezing/dyspnea) Qty: 1 RF: 0 mycophenolate mofetil 500 mg Tablet 500 mg PO DAILY RF: 0 benzonatate 100 mg Capsule 100 mg PO QID PRNRF: 0 megestrol 625 mg/5 mL Suspension 625 mg PO DAILY RF: 0 nintedanib 100 mg Capsule 150 mg PO BID RF: 0 lidocaine [Lidoderm] 5 % adhesive patch,medicated 1 patch TP DAILY Qty: 5 RF: 0 oxycodone-acetaminophen [Percocet] 5-325 mg tablet 1 tab PO Q8H PRNQty: 8 RF: 0 tramadol 50 mg Tablet 100 mg PO BID PRNRF: 0 ipratropium-albuterol 0.5 mg-3 mg(2.5 mg base)/3 mL Solution For Nebulization 3 ml UPD Q4H PRN PRN (Reason: shortness of breath) Qty: 180 RF: 0 Discharge Instructions Instructions: Animal Bite (ED), Cellulitis (ED) Additional Instructions: At this time the tip of your finger does have an infection, there is no likelihood of rabies as the shots for the dog are up-to-date. Please take the Augmentin as prescribed, take the first dose bright and early in the morning. Fill the prescription right away to continue the prescription. Please continue to soak your finger every 6 hours in warm soapy water with hydrogen peroxide. Please make sure that you are applying ice when you are not soaking the finger intermittently to help decrease the swelling. Take 600 mg of ibuprofen every 6 hours. Take your Percocets as needed. If you notice any worsening of your symptoms, or any new symptoms such as worsening tingling, worsening swelling, change in color, worsening pain, numbness, change in hot and cold sensations, vomiting, diarrhea, fever, chills, shortness of breath, chest pain, numbness, weakness, or fainting , please return immediately to the emergency department for reevaluation. Please follow up with your active directory specialist as soon as possible for reassessment and reevaluation. Please call their office on Friday morning to help facilitate the appointment set up. As always, it was a pleasure participating in your medical care today. Referrals: Peter Rock MD [ [facility] STAFF PHYSICIAN] - David Harris MD [ [facility] STAFF PHYSICIAN] - Eligio Thorne MD [ [facility] STAFF PHYSICIAN] - Medical Decision Making This is a pleasant 69-year-old female with a past medical history of pulmonary fibrosis who is right-hand dominant who presents today for evaluation of dog bite to her left hand over the ring finger. The patient states that 4 hours ago her dog was in a fight with her son's dog, she interjected with her hand, it was bit by her dog. Both dogs have their immunizations completely up-to-date. Initially the patient was seen and assessed by EMS at that time, there were 2 small puncture wounds, no other abnormalities. She declined transport at that time. Over the next 4 hours she developed notable swelling, subjective tingling at the tip of the finger, and worsening pain. No systemic symptoms of fever or chills. She was brought in at this time by EMS for further assessment. Patient states that her immunizations are up-to-date, including a tetanus shot within the last 5 years. She denies any other modifying factors. Pain is made worse with movement. She did take a Percocet 3 hours prior to arrival. Physical exam demonstrates a flexor and extensor bite drake at the distal phalanx of the ring finger on the left nondominant hand. Mild swelling throughout, finger being is held relatively straight, however there is pain with passive and active extension. No pain with flexion. Distal exam demonstrates good capillary refill, two-point discrimination is intact throughout the entire finger including the distal tip distal to the injury. No pallor, hot cold sensation normal. At this stage there is no evidence of a sausage shaped digit. No purulent discharge. Physical exam at this stage does not yet show signs of flexor tenosynovitis, however there is evidence of mild early infection which certainly needs treatment. We will give 1500 mg of Ancef, and a prescription for Augmentin. We will get an x-ray to evaluate for any fracture. I did contact Dr. Rock and discussed the case with him, as well as the findings in the current clinical evidence of a lack of signs and symptoms of flexor tenosynovitis however I did discuss that obviously this is just the early stages and she does need close follow-up. He also does recommend close follow-up on an outpatient basis. I spent a notably extended period with the patient discussing concerning red flags specifically for flexor tenosynovitis as well as other concerning infectious etiologies. We discussed in depth signs and symptoms which would merit prompt return to the emergency department as well as the importance of close follow-up with orthopedics on an outpatient basis. 9:54 PM Patient's x-ray results have returned, there is a small fracture noted at the distal aspect of the phalanx. Ancef has been given, patient's vital signs remained stable. Repeat physical exam actually demonstrates improvement of the swelling after Toradol and antibiotics, the redness is also improved. Repeat sensation demonstrates good two-point discrimination all the way to the tip of the finger, no evidence of deficit. Capillary refill is brisk, no evidence of sausage shaped digit. Pain with active and passive extension has also notably improved, the patient is no longer in significant discomfort. Signs and symptoms at this time remained to be clinically inconsistent with flexor tenosynovitis. At this time the patient will be discharged with close and prompt follow-up with Dr. Rock and or orthopedics this week. She has been given a bottle of Augmentin here, as well as a prescription. Recommend continued soaks, and again thorough discussion about red flags which to immediately return have been discussed with the patient. I have extensively reviewed the treatment plan and discharge instructions with the patient. I have addressed all patient concerns at this time. The patient was made aware of what symptoms to monitor for that would warrant a return to the emergency department. Discussed the plan with the patient, they demonstrate verbal understanding and agreement with our assessment and plan at this time. Also the patient has been given a finger splint which is been used loosely to help, we do not want something overly tight secondary to the pain and swelling that is present with a tight bandage. Over the splint does not fit well, and does give notable stability at this time. FINDINGS: Limitations: Three views of a left digit are provided. No imaging of the entire hand is submitted for digit numbering or for lateral orientation. Bones/joints: The imaged proximal phalanx appears intact. There is a comminuted acute fracture through the distal aspect of the imaged middle phalanx with mild palmar angulation of the major distal fragment relative to the phalangeal shaft. There is a comminuted acute through the proximal aspect of the imaged distal phalanx along its lateral and palmar margin. There is no associated dislocation of the interphalangeal joints. Soft tissues: There is soft tissue swelling throughout the imaged digit with nodular soft tissue swelling over the proximal interphalangeal joint. No radiopaque foreign body is demonstrated. IMPRESSION: Three views of a single left digit reveal acute fractures through the distal aspect of the middle phalanx and through the proximal aspect of the distal phalanx, as described. No associated dislocation or foreign body is demonstrated. Thank you for allowing us to participate in the care of your patient. Dictated and Authenticated by: Kaveh Lara MD 04/09/2020 9:48 PM Eastern Time ([place] & [place]) HPI General Date/Time Provider Initiated Documentation: 04/09/20 20:31. HPI Narrative: This is a pleasant 69-year-old female with a past medical history of pulmonary fibrosis who is right-hand dominant who presents today for evaluation of dog bite to her left hand over the ring finger. The patient states that 4 hours ago her dog was in a fight with her son's dog, she interjected with her hand, it was bit by her dog. Both dogs have their immunizations completely up-to-date. Initially the patient was seen and assessed by EMS at that time, there were 2 small puncture wounds, no other abnormalities. She declined transport at that time. Over the next 4 hours she developed notable swelling, subjective tingling at the tip of the finger, and worsening pain. No systemic symptoms of fever or chills. She was brought in at this time by EMS for further assessment. Patient states that her immunizations are up-to-date, including a tetanus shot within the last 5 years. She denies any other modifying factors. Pain is made worse with movement. She did take a Percocet 3 hours prior to arrival. Related Data Home Medications Medication Instructions Recorded Confirmed albuterol sulfate [ProAir HFA] 2 puff INHALATION Q4H PRN PRN #1 10/02/17 01/04/20 [email or web address] tramadol 100 mg PO BID PRN 12/24/18 01/04/20 ipratropium-albuterol 3 ml UPD Q4H PRN PRN #180 ml 12/25/18 01/04/20 benzonatate 100 mg PO QID PRN 12/14/19 01/04/20 megestrol 625 mg PO DAILY 12/14/19 01/04/20 mycophenolate mofetil 500 mg PO DAILY 12/14/19 01/04/20 nintedanib 150 mg PO BID 12/14/19 01/04/20 lidocaine [Lidoderm] 1 patch TP DAILY #5 each 01/04/20 oxycodone-acetaminophen [Percocet] 1 tab PO Q8H PRN #8 tab 01/04/20 amoxicillin-pot clavulanate 1 tab PO BID #20 tab 04/09/20 [Augmentin] Previous Rx's Medication Instructions Recorded albuterol sulfate [ProAir HFA] 2 puff INHALATION Q4H PRN PRN #1 10/02/17 hfa.aer.ad ipratropium-albuterol 3 ml UPD Q4H PRN PRN #180 ml 12/25/18 lidocaine [Lidoderm] 1 patch TP DAILY #5 each 01/04/20 oxycodone-acetaminophen [Percocet] 1 tab PO Q8H PRN #8 tab 01/04/20 amoxicillin-pot clavulanate 1 tab PO BID #20 tab 04/09/20 [Augmentin] Allergies Allergy/AdvReac Type Severity Reaction Status Date / Time Sulfa (Sulfonamide Allergy Severe throat Unverified 04/09/20 20:42 Antibiotics) swelling/can't breath levofloxacin Allergy Intermediate Other (See Unverified 04/09/20 20:42 Comment) General JAMIE: 3 Review of Systems All systems reviewed & are unremarkable except as noted in HPI and below PFSH Medical History (Updated 04/09/20 @ 21:22 by Melquiades Rogers DO) Chronic back pain (Chronic) Pulmonary fibrosis (Chronic) Patient had previous work-up by Dr. Ferrara in [facility] in March 2018. Patient reports that her PFTs did not show underlying COPD, patient has a follow-up with Dr. Giron in February 16, 2019 Surgical History S/P cholecystectomy (Resolved) S/P gastric bypass (Resolved) S/P hernia repair (Resolved) S/P hysterectomy (Resolved) Social History Smoking/Tobacco Use Status: Never Second Hand Exposure: Yes (Secondary to her parents as well as ) Alcohol Intake: never Drug use: Never Substance use type: does not use Household members: family and children 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 [employer] What type of physical activity do you participate in: walking Frequency: daily Do you feel safe at home: Yes Do you feel safe in your relationship?: Yes History History 4 Para Hx # Term Pregnancies 4 Multiple births Hx # Pregnancies Ectopic pregnancies AB induced Hx Number of Living Children AB spontaneous Exam Narrative Exam Narrative: 1.Const: Well-nourished, Well-developed, appearing stated age 2.Eyes: PERRL, no conjunctival injection, and symmetrical lids. 3.ENT: Atraumatic external nose and ears. Moist MM. Neck: Symmetric, trachea midline, No thyromegaly. 4.CVS: +S1/S2, No murmurs or gallops. Peripheral pulses 2+ and equal in all extremities. Brisk capillary refill in all extremities. 5.RESP: Unlabored respiratory effort. Clear to auscultation bilaterally. No wheezes rales or rhonchi 6.GI: Soft, Nontender/Nondistended, No hepatosplenomegaly. No guarding or rebound. 7.MSK: Patient demonstrates a flexor and extensor bite drake at the distal phalanx of the ring finger on the left nondominant hand. Mild swelling throughout, finger being is held relatively straight, however there is pain with passive and active extension. No pain with flexion. Distal exam demonstrates good capillary refill, two-point discrimination is intact throughout the entire finger including the distal tip distal to the injury. No pallor, hot cold sensation normal. At this stage there is no evidence of a sausage shaped digit. No purulent discharge. 8.Skin: Please see musculoskeletal 9.Neuro: photographer II-XII grossly intact. Sensation grossly intact, no focal neurologic deficits. 10.Psych: (AAO) x3. Appropriate mood and affect
[2020-04-09] MEDS: Ketorolac 30 MG/ML VIAL IVP (20:46)
--- NOTE | 2020-04-09 21:49 | DI.VRAD_ITS ---
PROCEDURE INFORMATION: Exam: XR Left Finger(s) Exam date and time: 04/09/2020 9:06 PM Age: 69 years old Clinical indication: Other: Dog bit at tip, R/O FX TECHNIQUE: Imaging protocol: XR Left fingers. Views: Minimum 2 views. COMPARISON: No relevant prior studies available. FINDINGS: Limitations: Three views of a left digit are provided. No imaging of the entire hand is submitted for digit numbering or for lateral orientation. Bones/joints: The imaged proximal phalanx appears intact. There is a comminuted acute fracture through the distal aspect of the imaged middle phalanx with mild palmar angulation of the major distal fragment relative to the phalangeal shaft. There is a comminuted acute through the proximal aspect of the imaged distal phalanx along its lateral and palmar margin. There is no associated dislocation of the interphalangeal joints. Soft tissues: There is soft tissue swelling throughout the imaged digit with nodular soft tissue swelling over the proximal interphalangeal joint. No radiopaque foreign body is demonstrated. IMPRESSION: Three views of a single left digit reveal acute fractures through the distal aspect of the middle phalanx and through the proximal aspect of the distal phalanx, as described. No associated dislocation or foreign body is demonstrated. Dictated and Authenticated by: Kaveh Lara MD. Ordering:SUNNY Arnett MD
[2020-04-09] MEDS: Amox. 875/Clav. 125, 2 TABS/BTL 1 TAB PO (22:14)
[2020-04-09 22:15] VITALS: BP 149/76
--- NOTE | 2020-04-09 23:27 | NUR.NOTE ---
ANIMAL BITE FORM FAXED TO [facility] OFFICER I REGARDS TO DOG BITE Nursing Note:
== END 2020-04-09 22:15 | disposition home or self-care (01) ==
LOC: ER 22:21
PROVIDERS: Emergency Provider Student in an Organized Health Care Education/Training Program; PCP Physician Assistant Medical
DX: S62.665A Nondisplaced fracture of distal phalanx of left ring finger, initial encounter for closed fracture (principal); W54.0XXA Bitten by dog, initial encounter; L03.012 Cellulitis of left finger
CPT/HCPCS: 96365; 96375; 99284; 73140; J0690; J1885

== ENCOUNTER → 2020-04-13 08:40 | Outpatient (BNVA) | payer MEDICARE, MEDICAID, SELFPAY | PROVIDERS: PCP Physician Assistant Medical; Referring Provider Student in an Organized Health Care Education/Training Program; Visit Provider Student in an Organized Health Care Education/Training Program | DX: L03.012 Cellulitis of left finger (principal); S62.665D Nondisplaced fracture of distal phalanx of left ring finger, subsequent encounter for fracture with routine healing; W54.0XXD Bitten by dog, subsequent encounter | CPT/HCPCS: 99203; 99214 ==

== ENCOUNTER 2020-05-19 07:42 | Outpatient (CLI) | payer MEDICARE, MEDICAID, SELFPAY ==
[2020-05-20 20:39] LABS: COVID-19 RT-PCR Result NEGATIVE (Negative)
== END 2020-05-19 08:02 ==
PROVIDERS: PCP Physician Assistant Medical; Visit Provider Family Medicine
DX: Z11.59 Encounter for screening for other viral diseases (principal); Z01.811 Encounter for preprocedural respiratory examination
CPT/HCPCS: U0003

== ENCOUNTER 2020-06-12 11:01 | Outpatient (CLI) | payer MEDICARE, MEDICAID, SELFPAY ==
--- NOTE | 2020-06-12 10:45 | DI.RAD_ITS ---
EXAM: XR FINGER LT RING CLINICAL HISTORY: follow up/continued pain TECHNIQUE: COMPARISON: CR,XR XR FINGER LT RING from 04/09/2020 FINDINGS: Three views were obtained. Previously described fractures of the middle and distal phalanges of the ring finger appear to be healing with no gross interval change in the alignment of the fracture fragm ents in comparison with previous examination of April 09. Visible fracture planes do persist at t he fracture sites. IMPRESSION: RADIATION DOSE DELIVERED: Total DLP
== END 2020-06-12 11:21 ==
PROVIDERS: PCP Physician Assistant Medical; Referring Provider Physician Assistant Medical; Visit Provider Student in an Organized Health Care Education/Training Program
DX: S62.635A Displaced fracture of distal phalanx of left ring finger, initial encounter for closed fracture (principal); L03.012 Cellulitis of left finger; S62.625D Displaced fracture of middle phalanx of left ring finger, subsequent encounter for fracture with routine healing; W54.0XXD Bitten by dog, subsequent encounter
CPT/HCPCS: 99213; 73140

== ENCOUNTER 2020-06-19 08:40 | Outpatient (CLI) | payer MEDICARE, MEDICAID, SELFPAY ==
[2020-06-21 08:11] LABS: SARS-CoV-2 RNA Not Detected (NotDetected); SARS-CoV-2 RNA Source Nasal/Nares
== END 2020-06-19 09:00 ==
PROVIDERS: PCP Physician Assistant Medical; Visit Provider Family Medicine
DX: J84.10 Pulmonary fibrosis, unspecified (principal); Z01.818 Encounter for other preprocedural examination; Z11.59 Encounter for screening for other viral diseases
CPT/HCPCS: U0003

== ENCOUNTER 2020-07-27 03:35 | Outpatient (CLI) | payer MEDICARE, MEDICAID, SELFPAY ==
--- NOTE | 2020-07-27 13:16 | DI.CT_ITS ---
EXAM: CT CHEST WO CLINICAL HISTORY: F/U INTERSTITIAL PULMONARY FIBROSIS,J84.10 TECHNIQUE: CT examination of the chest was performed without contrast administration. COMPARISON: CT CT chest PE CTA from 10/04/2018 FINDINGS: Images obtained through the upper abdomen show grossly unremarkable appearance of visualized portion s of liver and spleen. There is a nonobstructing left lower pole renal stone. Otherwise the visuali zed portions of the kidneys and adrenals appear intact. There are vascular clips associated with the se stomach. There is a prior cholecystectomy. No gross mediastinal adenopathy identified on this noncontrast study. Cardiac size grossly within no rmal limits. Coronary artery calcification noted. In comparison with prior examination of October 04, 2018 , There is decreased inspiration on today's examination which causes some crowding of the lung markin gs. Allowing for differences in inspiration there has been no gross interval change in appearance of the lungs, diffuse fibrotic changes are noted which are predominantly peripheral. There is a new small right pleural effusion, not present on the prior examination. There is moderate bronchiectasis, unchanged from the prior study. No new intrapulmonary mass or consolidation seen. IMPRESSION: The appearance of the chest is predominantly stable with fibrotic changes grossly unchanged from prio r examination of October 04, 2018. However there is a new right pleural effusion which is unexplained. Please correlate clinically. Continue annual screening with LD CT in 12 months. RADIATION DOSE DELIVERED: LINK-TO-SR Total DLP 432.93mGy.cm Total DLP
== END 2020-07-27 03:55 ==
PROVIDERS: PCP Physician Assistant Medical; Visit Provider Internal Medicine
DX: J84.10 Pulmonary fibrosis, unspecified (principal); J90 Pleural effusion, not elsewhere classified
CPT/HCPCS: 71250

== ENCOUNTER 2020-08-20 18:35 | Emergency (ER) | payer MEDICARE, MEDICAID, SELFPAY ==
[2020-08-20] VITALS (28 sets, daily range): BP systolic 134–178; BP diastolic 53–79; PULSE 83–98; RESP 14–32; TEMP 36.4–37.1; O2SAT 90–97
--- NOTE | 2020-08-20 18:30 | RT.EKG_ITS ---
APPROVED REPORT Exam: Resting ECG Patient Location: E HR:97 bpm ECG Measurements Heart Rate 97 AXIS TN 135 P 41 QRSd 78 QRS -20 QT 328 T 35 QTc 417 Conclusion Sinus rhythm Left ventricular hypertrophy. Anterior repolarization abnormalities
--- NOTE | 2020-08-20 18:52 | ED.GENADUL_ITS ---
Discharge Plan Disposition Patient Disposition: HOME Condition: Stable Discharge Details Chief Complaint: SOB Clinical Impression: Pulmonary fibrosis Primary Care Provider: Chloe Barrett ED Provider: Gale Feliciano Home Meds and New Rx's Prescriptions: No Action albuterol sulfate [ProAir HFA] 8.5 GM HFA aerosol inhaler 2 puff Inhalation Q4H PRN PRN (Reason: wheezing/dyspnea) Qty: 1 RF: 0 mycophenolate mofetil 500 mg Tablet 500 mg PO DAILY RF: 0 benzonatate 100 mg Capsule 100 mg PO QID PRNRF: 0 megestrol 625 mg/5 mL Suspension 625 mg PO DAILY RF: 0 nintedanib 100 mg Capsule 150 mg PO BID RF: 0 oxycodone-acetaminophen [Percocet] 5-325 mg tablet 1 tab PO Q8H PRNQty: 8 RF: 0 tramadol 50 mg Tablet 100 mg PO BID PRNRF: 0 ipratropium-albuterol 0.5 mg-3 mg(2.5 mg base)/3 mL Solution For Nebulization 3 ml UPD Q4H PRN PRN (Reason: shortness of breath) Qty: 180 RF: 0 Discharge Instructions Instructions: Shortness of Breath (ED) Additional Instructions: Take all your medications as previously prescribed Follow-up with your primary care provider or return sooner for new or worsening symptoms Referrals: Chloe Barrett [Primary Care Provider] - Medical Decision Making Patient presents with shortness of breath oxygenating well on room air no fevers has had similar symptoms in the past. IV established given IV fluids routine labs checked chest x-ray with no acute findings. She is given magnesium IV and morphine 2 mg with resolution of her symptoms. D-dimer is elevated CTA shows no evidence of PE or acute findings explain her symptoms. While we were preparing discharge paperwork she reported epigastric chest pain. A troponin was added which was negative repeat troponin was also negative her symptoms resolved after chewing aspirin and she has had no further pain. Vital signs are stable and she feels at her baseline she is stable and ready for discharge to home Medical Records Medical records reviewed: Yes I reviewed the patient's medical records. Medical records narrative: Patient Name: MAIDE GOMEZ #: [id number]: ER Ordering Provider: : PRE ER Primary Care Provider: Magnolia Barrett of Exam: 08/20/20Sex: F : 1950ge: 69 Exam(s) PROCEDURE INFORMATION: Exam: XR Chest, 2 Views Exam date and time: 08/20/2020 18:54 Age: 69 years old Clinical indication: Shortness of breath TECHNIQUE: Imaging protocol: XR of the chest Views: 2 views. COMPARISON: CT CHEST WO 07/27/2020 13:10 FINDINGS: Tubes, catheters and devices: Surgical clips again seen projecting over the left upper quadrant. Right upper quadrant clips, probable cholecystectomy. Lungs: Similar, severe appearing interstitial changes throughout the lungs in the setting of low lung volumes. No new randy airspace consolidation. Pleural space: No pleural effusion. No pneumothorax. Heart/Mediastinum: No cardiomegaly. Bones/joints: No acute fracture. IMPRESSION: Similar, severe and chronic appearing interstitial lung disease. Dictated and Authenticated by: Bren Mills MD. Ordering:SHARDA Beasley MD Patient Name: MADIE GOMEZ #: [id number]: ER Ordering Provider: : PRE ER Primary Care Provider: Magnolia Barrett of Exam: 08/20/20Sex: F : 1950ge: 69 Exam(s) PROCEDURE INFORMATION: Exam: CT Angiography Chest With Contrast Exam date and time: 08/20/2020 20:20 Age: 69 years old Clinical indication: Cough and shortness of breath; Prior surgery; Surgery date: 6+ months; Surgery type: Gastric bypass; Patient HX: SOB, cough, elevated d-dimer TECHNIQUE: Imaging protocol: Computed tomographic angiography of the chest with intravenous contrast. 3D rendering (Not supervised by radiologist): MIP and/or 3D reconstructed images were created by the technologist. Radiation optimization: All CT scans at this facility use at least one of these dose optimization techniques: automated exposure control; mA and/or kV adjustment per patient size (includes targeted exams where dose is matched to clinical indication); or iterative reconstruction. Contrast material: OMNIPAQUE 350; Contrast volume: 59 ml; Contrast route: INTRAVENOUS (IV); COMPARISON: CT CHEST PE CTA 08/01/2019 13:50 FINDINGS: Pulmonary arteries: No pulmonary emboli. Aorta: No aortic aneurysm. No aortic dissection. Lungs: Right chest wall emphysema has resolved. Similar, moderate to severe chronic appearing pulmonary interstitial disease. Peripheral predominant generalized interstitial opacities. A subpleural opacity in the right upper lobe and or superior segment of the right lower lobe is decreasing in size and most consistent with a benign process. Pleural space: Benign-appearing pleural calcifications. No pneumothorax. Heart: No cardiomegaly. No pericardial effusion. Lymph nodes: No enlarged lymph nodes. Stomach and bowel: Postsurgical changes in the stomach and proximal small bowel. Bones/joints: No acute fracture. Soft tissues: Surgical clips are again seen in the right neck base. Other findings: Surgical clips in the upper abdomen. IMPRESSION: 1. Similar, moderate to severe chronic appearing pulmonary interstitial disease. 2. No pulmonary emboli are seen. 3. A subpleural right-sided opacity is decreasing in size and most consistent with a benign process. Question resolving pneumonia. 4. Additional findings as described. Dictated and Authenticated by: Bren Mills MD. Ordering:SHARDA Beasley MD Lab Data Lab results reviewed: Yes I reviewed the patient's lab results. Lab results narrative: Laboratory Tests Range/Units 08/20/20 08/20/20 08/20/20 18:50 18:50 18:50 WBC (4.4-10.8) 10^3/uL 8.87 RBC (3.93-5.22) 10^6/uL 4.60 Hgb (11.2-15.7) g/dL 14.4 Hct (36.0-46.0) % 46.3 H MCV (80-95) fL 100.7 H MCH (27.0-33.0) pg 31.3 MCHC (32.0-36.0) % 31.1 L RDW (11.7-14.6) % 13.0 Plt Count (130-400) 10^3/uL 356 MPV (8.0-11.0) fL 8.6 Immature Gran % 0.2 Neutrophils % 66.8 Lymphocytes % 26.2 Monocytes % 5.9 Eosinophils % 0.6 Basophils % 0.3 Nucleated RBC % % 0 Absolute Neutrophils (1.2-6.7) 10^3/uL 5.93 Absolute Lymphocytes (1.2-3.4) 10^3/uL 2.32 Absolute Monocytes (0.1-0.8) 10^3/uL 0.52 Absolute Eosinophils (0.0-0.7) 10^3/uL 0.05 Absolute Basophils (0.0-0.2) 10^3/uL 0.03 D-Dimer (<500) ng/mlFEU 1159 H Sodium (136-145) mmol/L 140 Potassium (3.5-5.1) mmol/L 4.2 Chloride (98-107) mmol/L 106 Carbon Dioxide (21.0-32.0) mmol/L 25.0 Anion Gap (3-11) mmol/L 9.0 BUN (7-18) mg/dL 17 Creatinine (0.55-1.02) mg/dL 0.94 Estimated GFR/1.73 m2 (mL/min/1.73m2) 59.04 Glucose (74-106) mg/dL 104 Calcium (8.5-10.1) mg/dL 9.5 Magnesium (1.8-2.4) mg/dL 2.0 Total Bilirubin (0.2-1.0) mg/dL 0.4 AST (15-37) U/L 27 ALT (14-59) U/L 23 Alkaline Phosphatase (46-116) U/L 95 Troponin I (<0.06) ng/mL NT-Pro-B Natriuret Pep (<300) pg/mL 267 Total Protein (6.4-8.2) g/dL 8.1 Albumin (3.4-5.0) g/dL 3.3 L Range/Units 08/20/20 18:50 WBC (4.4-10.8) 10^3/uL RBC (3.93-5.22) 10^6/uL Hgb (11.2-15.7) g/dL Hct (36.0-46.0) % MCV (80-95) fL MCH (27.0-33.0) pg MCHC (32.0-36.0) % RDW (11.7-14.6) % Plt Count (130-400) 10^3/uL MPV (8.0-11.0) fL Immature Gran % Neutrophils % Lymphocytes % Monocytes % Eosinophils % Basophils % Nucleated RBC % % Absolute Neutrophils (1.2-6.7) 10^3/uL Absolute Lymphocytes (1.2-3.4) 10^3/uL Absolute Monocytes (0.1-0.8) 10^3/uL Absolute Eosinophils (0.0-0.7) 10^3/uL Absolute Basophils (0.0-0.2) 10^3/uL D-Dimer (<500) ng/mlFEU Sodium (136-145) mmol/L Potassium (3.5-5.1) mmol/L Chloride (98-107) mmol/L Carbon Dioxide (21.0-32.0) mmol/L Anion Gap (3-11) mmol/L BUN (7-18) mg/dL Creatinine (0.55-1.02) mg/dL Estimated GFR/1.73 m2 (mL/min/1.73m2) Glucose (74-106) mg/dL Calcium (8.5-10.1) mg/dL Magnesium (1.8-2.4) mg/dL Total Bilirubin (0.2-1.0) mg/dL AST (15-37) U/L ALT (14-59) U/L Alkaline Phosphatase (46-116) U/L Troponin I (<0.06) ng/mL < 0.05 NT-Pro-B Natriuret Pep (<300) pg/mL Total Protein (6.4-8.2) g/dL Albumin (3.4-5.0) g/dL HPI General Date/Time Provider Initiated Documentation: 08/20/20 18:52 . Limitations to Documentation: no limitations . Information obtained by: patient . HPI Narrative: Patient presents with complaints of shortness of breath she denies chest pain cough fever. She states she has had similar symptoms in the past associated with her pulmonary fibrosis. She has inhalers that she takes at home Related Data Home Medications Medication Instructions Recorded Confirmed albuterol sulfate [ProAir HFA] 2 puff INHALATION Q4H PRN PRN #1 10/02/17 08/20/20 hfa.aer.ad tramadol 100 mg PO BID PRN 12/24/18 08/20/20 ipratropium-albuterol 3 ml UPD Q4H PRN PRN #180 ml 12/25/18 08/20/20 benzonatate 100 mg PO QID PRN 12/14/19 08/20/20 megestrol 625 mg PO DAILY 12/14/19 08/20/20 mycophenolate mofetil 500 mg PO DAILY 12/14/19 08/20/20 nintedanib 150 mg PO BID 12/14/19 08/20/20 oxycodone-acetaminophen [Percocet] 1 tab PO Q8H PRN #8 tab 01/04/20 08/20/20 Previous Rx's Medication Instructions Recorded albuterol sulfate [ProAir HFA] 2 puff INHALATION Q4H PRN PRN #1 10/02/17 hfa.aer.ad ipratropium-albuterol 3 ml UPD Q4H PRN PRN #180 ml 12/25/18 oxycodone-acetaminophen [Percocet] 1 tab PO Q8H PRN #8 tab 01/04/20 Allergies Allergy/AdvReac Type Severity Reaction Status Date / Time Sulfa (Sulfonamide Allergy Severe throat Unverified 08/20/20 19:22 Antibiotics) swelling/can't breath levofloxacin Allergy Intermediate Other (See Unverified 08/20/20 19:22 Comment) General Stated Complaint: SOB JAMIE: 2 Review of Systems All systems reviewed & are unremarkable except as noted in HPI and below Constitutional Constitutional: Denies fever(s) Cardiovascular Cardiovascular: Denies chest pain and Reports dyspnea Respiratory Respiratory: Reports dyspnea Gastrointestinal Gastrointestinal: Denies constipation and Denies diarrhea [facility] Medical History (Updated 08/20/20 @ 23:05 by Gale Feliciano NP) Chronic back pain Pulmonary fibrosis Patient had previous work-up by Dr. Ferrara in [facility] in March 2018. Patient reports that her PFTs did not show underlying COPD, patient has a follow-up with Dr. 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 Current gender identity: female What type of physical activity do you participate in: walking Frequency: daily Do you feel safe at home: Yes Do you feel safe in your relationship?: Yes History History 4 Para Hx # Term Pregnancies 4 Multiple births Hx # Pregnancies Ectopic pregnancies AB induced Hx Number of Living Children AB spontaneous Exam Const General: cooperative, anxious, frail appearing and ill appearing chronically Nutritional Appearance: average body habitus HENMT Head: normal to inspection, normocephalic and atraumatic Resp Effort & Inspection: normal respiratory effort Auscultation: clear to auscultation bilaterally and rales bilaterally at the base (Fine) Cardio Rate: regular rate Rhythm: regular rhythm GI Inspection: normal to inspection Palpation: soft Auscultation: normal bowel sounds Skin General skin exam: no rashes or lesions noted Neuro General: patient alert, patient awake and patient oriented x3 Course Vital Signs Vital signs: Vital Signs Temperature 36.4 C L 08/20/20 18:41 Pulse 98 H 08/20/20 18:41 Respiratory Rate 30 H 08/20/20 18:41 Blood Pressure 169/76 H 08/20/20 18:41 Pulse Oximetry 95 08/20/20 18:41 Temperature 36.4 C L 08/20/20 18:41 Temperature Source Skin 08/20/20 18:41 Pulse 98 H 08/20/20 18:41 Respiratory Rate 30 H 08/20/20 18:41 Blood Pressure 169/76 H 08/20/20 18:41 Blood Pressure Position Sitting 08/20/20 18:41 Pulse Oximetry 95 08/20/20 18:41 Oxygen Delivery Method Room Air 08/20/20 18:41 Oxygen Flow Rate 0 08/20/20 18:41 Pain Level 0 08/20/20 18:41
[2020-08-20] MEDS: MAGNESIUM SULFATE 2 GM/50 ML BAG IVPB (19:00)
[2020-08-20 19:04] LABS: Abs Immature Grans 0.02 10^3/uL (0.0-0.06); Absolute Basophil Count 0.03 10^3/uL (0.0-0.2); Absolute Eosinophil Count 0.05 10^3/uL (0.0-0.7); Absolute Lymphocyte Count 2.32 10^3/uL (1.2-3.4); Absolute Monocyte Count 0.52 10^3/uL (0.1-0.8); Absolute Neutrophil Count 5.93 10^3/uL (1.2-6.7); Basophils % 0.3; Eosinophils % 0.6; HCT 46.3 % (36.0-46.0); HGB 14.4 g/dL (11.2-15.7); Immature Grans % 0.2; Lymphocytes % 26.2; MCH 31.3 pg (27.0-33.0); MCHC 31.1 % (32.0-36.0); MCV 100.7 fL (80-95); MPV 8.6 fL (8.0-11.0); Monocytes % 5.9; Neutrophils % 66.8; Nucleated RBC 0 %; Platelet Count 356 10^3/uL (130-400); WBC 8.87 10^3/uL (4.4-10.8)
[2020-08-20] MEDS: MORPHine 10 MG/ML VIAL 2 MG IVP (19:06)
[2020-08-20 19:24] LABS: ALT 23 U/L (14-59); AST 27 U/L (15-37); Albumin 3.3 g/dL (3.4-5.0); Alkaline Phosphatase 95 U/L (46-116); BUN 17 mg/dL (7-18); Bilirubin, Total 0.4 mg/dL (0.2-1.0); CREATININE 0.94 mg/dL (0.55-1.02); Calcium 9.5 mg/dL (8.5-10.1); Chloride 106 mmol/L (98-107); Estimated GFR 59.04 (mL/min/1.73m2); Glucose 104 mg/dL (74-106); NT-proBNP 267 pg/mL (<300); Potassium 4.2 mmol/L (3.5-5.1); Sodium 140 mmol/L (136-145); Total Protein 8.1 g/dL (6.4-8.2)
--- NOTE | 2020-08-20 19:30 | DI.RAD_ITS ---
EXAM: XR CHEST 2V PA LATERAL CLINICAL HISTORY: shortness of breath. TECHNIQUE: 2D digital imaging was performed. COMPARISON: CR,XR XR RIBS RT W PA LAT CHEST from 01/04/2020 FINDINGS: Heart size is normal. The mediastinum is not widened. Bilateral severe symmetrical interstitial disease is again noted. No pleural effusions. IMPRESSION: Severe bilateral interstitial disease which appears somewhat chronic unchanged from prior study liste d above December 2019. No obvious new infiltrates nor pleural effusions. The previously described infilt rate in the right upper lobe region has significantly decreased in size, implying was most probably i nfectious.Nevertheless recommend appropriate follow-up. DATA REPOSITORY: RADIATION DOSE DELIVERED:
[2020-08-20 19:37] LABS: D-Dimer 1159 ng/mlFEU (<500)
--- NOTE | 2020-08-20 19:42 | DI.VRAD_ITS ---
PROCEDURE INFORMATION: Exam: XR Chest, 2 Views Exam date and time: 08/20/2020 18:54 Age: 69 years old Clinical indication: Shortness of breath TECHNIQUE: Imaging protocol: XR of the chest Views: 2 views. COMPARISON: CT CHEST WO 07/27/2020 13:10 FINDINGS: Tubes, catheters and devices: Surgical clips again seen projecting over the left upper quadrant. Right upper quadrant clips, probable cholecystectomy. Lungs: Similar, severe appearing interstitial changes throughout the lungs in the setting of low lung volumes. No new randy airspace consolidation. Pleural space: No pleural effusion. No pneumothorax. Heart/Mediastinum: No cardiomegaly. Bones/joints: No acute fracture. IMPRESSION: Similar, severe and chronic appearing interstitial lung disease. Dictated and Authenticated by: Bren Mills MD. Ordering:SHARDA Beasley MD
--- NOTE | 2020-08-20 20:00 | DI.CT_ITS ---
EXAM: CT CHEST PE CTA CLINICAL HISTORY: elevate d dimer/sob. TECHNIQUE: Imaging Protocol: CT angiography of the chest was performed using pulmonary embolus agus col. Multi planar reconstructions were performed. CONTRAST MATERIAL: Intravenous: Omnipaque 350 Contrast volume: 59 cc COMPARISON: CT CT CHEST PE CTA from 08/01/2019 FINDINGS: CHEST: PULMONARY ARTERIES: There are no intraluminal filling defects to suggest acute pulmonary emboli. LUNGS: There is advanced bilateral interstitial disease. There is pleural based infiltrate in the [place] perior segment the right lower lobe which appears smaller than previous. There is a intrathoracic tu bular density in this region again noted which is possibly part of the catheter this region., [facility] ed from July 2019. The previously present right-sided pneumothorax has resolved as has the right -sided subcutaneous emphysema. There is a small right pleural effusion. No left pleural effusion. MEDIASTINUM: There is no hilar nor mediastinal adenopathy. CARDIAC: Heart size is normal. There is no pericardial effusion.Caliber of the thoracic aorta is wit hin normal limits. There is no evidence of shift of the interventricular septum. PARTIALLY VISUALIZED UPPERMOST ABDOMEN: No obvious findings OSSEOUS: No significant osseous lesions.. IMPRESSION: 1. No evidence of acute pulmonary emboli. No evidence of pulmonary infarction. 2. Severe chronic appearing pulmonary interstitial disease. 3. Superior segment right lower lobe pleural based infiltrate appears smaller than previous. Correla tion with biopsy results recommended. Tubular structure noted just above the right hemidiaphragm as described above. Possibly representing calcification but cannot exclude the possibility of retained catheter fragment at this level. There is a small right pleural effusion. RADIATION DOSE DELIVERED: LINK-TO-SR Total DLP DATA REPOSITORY: All CT scans at this facility are submitted to the National Radiology Data Registry (NRDR) Dose Index Registry (DIR) with the [employer] (ACR). RADIATION OPTIMIZATION: All CT scans at this facility use at least one of these dose optimization te chniques: automated exposure control; mA and/or kV adjustment per patient size (includes targeted exa ms where dose is matched to clinical indication); or iterative reconstruction.
[2020-08-20] MEDS: Omnipaque 350 MG/ML 100 ML BTL IJ (20:29)
[2020-08-20] MEDS: Normal Saline - Diluent 50 ML VIAL IV (20:30)
[2020-08-20] MEDS: Normal Saline Flush 10 ML SYR IVP (20:30)
--- NOTE | 2020-08-20 20:41 | DI.VRAD_ITS ---
PROCEDURE INFORMATION: Exam: CT Angiography Chest With Contrast Exam date and time: 08/20/2020 20:20 Age: 69 years old Clinical indication: Cough and shortness of breath; Prior surgery; Surgery date: 6+ months; Surgery type: Gastric bypass; Patient HX: SOB, cough, elevated d-dimer TECHNIQUE: Imaging protocol: Computed tomographic angiography of the chest with intravenous contrast. 3D rendering (Not supervised by radiologist): MIP and/or 3D reconstructed images were created by the technologist. Radiation optimization: All CT scans at this facility use at least one of these dose optimization techniques: automated exposure control; mA and/or kV adjustment per patient size (includes targeted exams where dose is matched to clinical indication); or iterative reconstruction. Contrast material: OMNIPAQUE 350; Contrast volume: 59 ml; Contrast route: INTRAVENOUS (IV); COMPARISON: CT CHEST PE CTA 08/01/2019 13:50 FINDINGS: Pulmonary arteries: No pulmonary emboli. Aorta: No aortic aneurysm. No aortic dissection. Lungs: Right chest wall emphysema has resolved. Similar, moderate to severe chronic appearing pulmonary interstitial disease. Peripheral predominant generalized interstitial opacities. A subpleural opacity in the right upper lobe and or superior segment of the right lower lobe is decreasing in size and most consistent with a benign process. Pleural space: Benign-appearing pleural calcifications. No pneumothorax. Heart: No cardiomegaly. No pericardial effusion. Lymph nodes: No enlarged lymph nodes. Stomach and bowel: Postsurgical changes in the stomach and proximal small bowel. Bones/joints: No acute fracture. Soft tissues: Surgical clips are again seen in the right neck base. Other findings: Surgical clips in the upper abdomen. IMPRESSION: 1. Similar, moderate to severe chronic appearing pulmonary interstitial disease. 2. No pulmonary emboli are seen. 3. A subpleural right-sided opacity is decreasing in size and most consistent with a benign process. Question resolving pneumonia. 4. Additional findings as described. Dictated and Authenticated by: Bren Mills MD. Ordering:SHARDA Beasley MD
--- NOTE | 2020-08-20 21:00 | RT.EKG_ITS ---
APPROVED REPORT Exam: Resting ECG Patient Location: E HR:88 bpm ECG Measurements Heart Rate 88 AXIS MT 147 P 45 QRSd 82 QRS -22 QT 341 T 29 QTc 414 Conclusion Sinus rhythm...normal P axis, V-rate 60- 99 Left ventricular hypertrophy...multiple voltage criteria Inferior infarct, old...Q >35mS, II III aVF Physician: anterior elevation, no stemi, present on prior ekg from earlier today
[2020-08-20] MEDS: Aspirin 81 MG CHEW 324 MG CH (21:11)
[2020-08-20 21:30] LABS: Troponin I < 0.05 ng/mL (<0.06)
[2020-08-20] MEDS: Ketorolac 15 MG/ML VIAL IVP (21:57)
[2020-08-20 23:50] LABS: Troponin I < 0.05 ng/mL (<0.06)
== END 2020-08-21 | disposition home or self-care (01) ==
PROVIDERS: Emergency Provider Nurse Practitioner Acute Care; PCP Physician Assistant Medical
DX: R79.1 Abnormal coagulation profile (principal); J84.10 Pulmonary fibrosis, unspecified; R07.9 Chest pain, unspecified
CPT/HCPCS: 36415; 71275; 80053; 93005; 96365; 96366; 96375; 96376; 99285; 71046; 83735; 83880; 84484; 85025; 85379; 93010; J1885; J2270; J3490

== ENCOUNTER 2020-09-21 21:03 | Emergency (ER) | payer MEDICARE, MEDICAID, SELFPAY ==
--- NOTE | 2020-09-21 21:06 | ED.GENADUL_ITS ---
Discharge Plan Disposition Patient Disposition: HOME Condition: Good Discharge Details Clinical Impression: Finger infection Primary Care Provider: Chloe Barrett ED Provider: Lars Watt Meds and New Rx's Prescriptions: New cephalexin 500 mg capsule 500 mg PO Q8H Qty: 19 RF: 0 Continued albuterol sulfate [ProAir HFA] 8.5 GM HFA aerosol inhaler 2 puff Inhalation Q4H PRN PRN (Reason: wheezing/dyspnea) Qty: 1 RF: 0 mycophenolate mofetil 500 mg Tablet 500 mg PO DAILY RF: 0 benzonatate 100 mg Capsule 100 mg PO QID PRNRF: 0 megestrol 625 mg/5 mL Suspension 625 mg PO DAILY RF: 0 nintedanib 100 mg Capsule 150 mg PO BID RF: 0 oxycodone-acetaminophen [Percocet] 5-325 mg tablet 1 tab PO Q8H PRNQty: 8 RF: 0 tramadol 50 mg Tablet 100 mg PO BID PRNRF: 0 ipratropium-albuterol 0.5 mg-3 mg(2.5 mg base)/3 mL Solution For Nebulization 3 ml UPD Q4H PRN PRN (Reason: shortness of breath) Qty: 180 RF: 0 Discharge Instructions Additional Instructions: No obvious foreign body but the nail matrix does seem to be abnormally growing under the skin in this area. May be a cause of this wound repeatedly reopening. We will start you on antibiotic. Epson soaks as we discussed. Follow-up with primary care next week. Return to ED if worsening symptoms especially fever or increased pain redness. Referrals: Chloe Barrett [Primary Care Provider] - Medical Decision Making Patient presenting with recurrent wound infection status post dog bite this fall. Consider retained foreign body from this injury. Will obtain x-ray of finger. X-ray is negative for foreign body. Discussed with patient wanting to open the area up to see if any pus or potential nonradiopaque foreign body present. Patient verbally consented. Digital block performed. Central white area incised. No pus expressed. Finger tourniquet applied to control bleeding. No foreign body. Nail matrix in this area appears to have abnormal growth and may be source of wound opening up intermittently. Tourniquet removed and pressure held until bleeding resolved. Band-Aid applied. Patient tolerated well. We will start the patient on cephalexin 500 mg 3 times daily for 1 week. We nadeen morataya have her do Epson salts soaks of the finger 2-3 times a day with a nap few days. Follow-up with primary care next week. Return to ED if problems. HPI General Mode of arrival: ambulatory . Date/Time Provider Initiated Documentation: 09/21/20 21:06 . Limitations to Documentation: no limitations . Information obtained by: patient and RN notes reviewed . HPI Narrative: Patient presents with left ring finger pain and swelling. Patient had a dog bite to this finger in the fall. She sustained fracture of the middle phalanx. Since then she periodically has a wound that opens up at the base of the cuticle. It drains a little and then it heals and then recurs a few weeks later. This time around it continues to be red, swollen, painful and not resolving. She denies any fever. She denies any new injury. She thought about trying to open it up and get aching to drain on her own at home but after discussion with primary care coverage decided to come in to ED tonight. Related Data Home Medications Medication Instructions Recorded Confirmed albuterol sulfate [ProAir HFA] 2 puff INHALATION Q4H PRN PRN #1 10/02/17 09/21/20 [email or web address] tramadol 100 mg PO BID PRN 12/24/18 09/21/20 ipratropium-albuterol 3 ml UPD Q4H PRN PRN #180 ml 12/25/18 09/21/20 benzonatate 100 mg PO QID PRN 12/14/19 09/21/20 megestrol 625 mg PO DAILY 12/14/19 09/21/20 mycophenolate mofetil 500 mg PO DAILY 12/14/19 09/21/20 nintedanib 150 mg PO BID 12/14/19 09/21/20 oxycodone-acetaminophen [Percocet] 1 tab PO Q8H PRN #8 tab 01/04/20 09/21/20 cephalexin 500 mg PO Q8H #19 cap 09/21/20 Previous Rx's Medication Instructions Recorded albuterol sulfate [ProAir HFA] 2 puff INHALATION Q4H PRN PRN #1 10/02/17 hfa.[email or web address] ipratropium-albuterol 3 ml UPD Q4H PRN PRN #180 ml 12/25/18 oxycodone-acetaminophen [Percocet] 1 tab PO Q8H PRN #8 tab 01/04/20 cephalexin 500 mg PO Q8H #19 cap 09/21/20 Allergies Allergy/AdvReac Type Severity Reaction Status Date / Time Sulfa (Sulfonamide Allergy Severe throat Unverified 09/21/20 21:12 Antibiotics) swelling/can't breath levofloxacin Allergy Intermediate Other (See Unverified 09/21/20 21:12 Comment) General JAMIE: 2 Review of Systems Narrative: As documented in HPI otherwise negative as below. Const: no fever, chills, weakness Resp: baseline cough and SOB CV: no CP, diaphoresis, edema, syncope GI: no abdominal pain, nausea, vomiting, diarrhea Neuro: no headache, numbness, focal weakness, confusion PFS Medical History (Updated 09/21/20 @ 22:16 by Lars Watt MD) Chronic back pain Pulmonary fibrosis Patient had previous work-up by Dr. Ferrara in [facility] in March 2018. Patient reports that her PFTs did not show underlying COPD, patient has a follow-up with Dr. 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 HEENT: NC/AT. Normal facial exam. Eyes: Normal conjunctiva and sclera. Neck: Supple. Trachea midline. Lungs: Tachypneic but baseline per patient. Neuro: A+O x 3. Normal speech, mentation, gait. Bilateral hand tremor present. Cranial nerves II - XII grossly intact. No gross motor or sensory deficit. Ext: Left hand normal except for distal ring finger with erythematous, swollen area base of cuticle with white central area. No active drainage. Procedures Nerve Block Nerve Block 1: Time out performed: Yes Local Anesthetic: Lidocaine 1% Amount of anesthesia used (mL): 2 Side: left Nerve Blocks: digital Procedure Successful: Yes Patient Tolerated Procedure: well Complications: none
[2020-09-21 21:07] VITALS: BP 181/101; PULSE 97; RESP 16; TEMP 36.5; O2SAT 93
--- NOTE | 2020-09-21 21:35 | DI.RAD_ITS ---
EXAM: XR FINGER LT RING EXAM DATE/TIME: CLINICAL HISTORY: reccurent infections s/p dog bit in fall. TECHNIQUE: 2D digital imaging was performed. COMPARISON: Comparison examination is 06/12/2020. FINDINGS: BONES: No acute fracture is present. No bony destructive lesion is seen. Osteopenia. JOINTS: No dislocation is present. Degenerative changes of the interphalangeal joint is noted. SOFT TISSUE: Normal. No radiopaque foreign body. IMPRESSION: No acute abnormality. DATA REPOSITORY: RADIATION DOSE DELIVERED:
--- NOTE | 2020-09-21 21:46 | DI.VRAD_ITS ---
PROCEDURE INFORMATION: Exam: XR Left Finger(s) Exam date and time: 09/21/2020 9:19 PM Age: 70 years old Clinical indication: Finger(s); Patient HX: Left ring finger pain. Dog bite distal phalanx in March, reoccurring pain and opening of skin at area of dog bite. TECHNIQUE: Imaging protocol: XR Left fingers. Views: Minimum 2 views. COMPARISON: CR XR FINGER LT RING 06/12/2020 11:02 AM FINDINGS: Bones/joints: Diffuse osteopenia. Severe triscaphe and moderate 1st carpometacarpal joint degenerative changes. Mild to moderate interphalangeal joint osteoarthritis. No acute fracture. Volar base fracture of the index finger distal phalanx appears well-healed. Soft tissues: No soft tissue gas or radiopaque foreign body. IMPRESSION: 1. No acute fracture or significant soft tissue abnormality. 2. Healed volar base fracture of the left index finger distal phalanx. 3. Osteoarthritis. 4. Osteopenia. Dictated and Authenticated by: Rober Ramirez MD. Ordering:JEFFERY Sousa MD
[2020-09-21 22:11] VITALS: BP 150/79; PULSE 87; RESP 20; O2SAT 95
[2020-09-21] MEDS: Cephalexin 500 MG CAP, 2 CAPS/BTL PO (22:22)
== END 2020-09-21 22:25 | disposition home or self-care (01) ==
PROVIDERS: Emergency Provider Emergency Medicine; PCP Physician Assistant Medical
DX: L03.114 Cellulitis of left upper limb (principal); S61.25 Open bite of finger without damage to nail; W54.0XXS Bitten by dog, sequela
CPT/HCPCS: 99283; 73140

== ENCOUNTER 2020-11-24 05:26 | Observation (INO) | payer MEDICARE, MEDICAID, SELFPAY ==
[2020-11-24] VITALS (34 sets, daily range): BP systolic 159–210; BP diastolic 82–118; PULSE 75–97; RESP 18–26; TEMP 36.5–37.1; O2SAT 92–98
--- NOTE | 2020-11-24 | DI.MRI_ITS ---
EXAM: MR BRAIN WO CLINICAL HISTORY: TIA TECHNIQUE: Multiplanar multisequence MRI of the brain was performed. COMPARISON: CT CT BRAIN NECK CTA from 11/24/2020 FINDINGS: VENTRICLES AND EXTRA AXIAL SPACES: Normal in size and morphology for the patient's age. MIDLINE SHIFT: None. CEREBRAL PARENCHYMA: No space-occupying lesion identified. There are areas of hyperintense signal in the white matter including the [place] and brainstem on the T2 and FLAIR images likely reflecting small vessel ischemic disease. There does appear to be a small focus of restricted diffusion in the left c entrum semiovale which may represent a small acute infarct. HEMORRHAGE: None. BRAINSTEM/CEREBELLUM: Normal. CALVARIUM: Normal. VISUALIZED PARANASAL SINUSES/MASTOIDS:Clear. [place]: Normal flow void. PITUITARY GLAND: Unremarkable. OTHER FINDINGS: None. IMPRESSION: Question of a subtle focus of restricted diffusion in the left centrum semiovale which may represent a small acute infarct. DATA REPOSITORY:
--- NOTE | 2020-11-24 05:15 | RT.EKG_ITS ---
APPROVED REPORT Exam: Resting ECG Patient Location: E HR:87 bpm ECG Measurements Heart Rate 87 AXIS DE 140 P 45 QRSd 89 QRS -21 QT 339 T 55 QTc 409 Conclusion Sinus rhythm...normal P axis, V-rate 60- 99 Left ventricular hypertrophy...multiple voltage criteria There are no significant changes compared to prior EKG performed on 08/20/2020 at 21:06.
--- NOTE | 2020-11-24 05:28 | ED.GENADUL_ITS ---
Discharge Plan Disposition Patient Disposition: [facility] INPATIENT Condition: Stable Discharge Details Clinical Impression: TIA (transient ischemic attack) Primary Care Provider: Chloe Barrett ED Provider: Lars Watt [place] Meds and New Rx's Prescriptions: No Action mycophenolate mofetil 500 mg Tablet 1,000 mg PO BID RF: 0 nintedanib 100 mg Capsule 150 mg PO BID RF: 0 prednisone 20 mg tablet See Rx Instructions .ROUTE .COMPLEX RF: 0 tramadol 50 mg tablet 50 mg PO 6XD PRNRF: 0 benzonatate 100 mg capsule 100 mg PO TID RF: 0 albuterol sulfate 90 mcg/actuation HFA aerosol inhaler 2 puff inhalation Q4H PRN PRNRF: 0 oxycodone 5 mg tablet 5 mg PO HS RF: 0 megestrol 625 mg/5 mL (125 mg/mL) suspension 5 ml PO DAILY RF: 0 fluticasone propionate 50 mcg/actuation spray,suspension 2 spray INTRANASAL DAILY RF: 0 ipratropium-albuterol 0.5 mg-3 mg(2.5 mg base)/3 mL Solution For Nebulization 3 ml UPD Q4H PRN PRN (Reason: shortness of breath) Qty: 180 RF: 0 cephalexin 500 mg capsule 500 mg PO Q8H Qty: 19 RF: 0 Medical Decision Making Patient presenting with 10-minute episode of right upper extremity numbness, weakness with associated expressive aphasia. Symptoms have now resolved. She has an NIH score of 0. Will establish IV, obtain labs, EKG, send for CTA head and neck. Noncontrast brain CT negative for bleed will give aspirin. Will need admission for telemetry, MRI brain, echo. EKG is sinus rhythm with no acute ST changes and unchanged from previous. Laboratory studies are unremarkable. CT head noncontrast negative for hemorrhage. CTA head and neck negative for any occlusion or significant stenosis. Patient given 324 of aspirin. Hospitalist contacted for admission. Patient remains neurologically intact at this time. Blood pressure still high but better than on arrival. Lab Data Lab results reviewed: Yes I reviewed the patient's lab results. ECG Data Attestation: I personally reviewed and interpreted this ECG (s) as follows: Prior ECG tracings: available for review Interpretation: see EKG; unchanged HPI General Mode of arrival: ambulatory . Date/Time Provider Initiated Documentation: 11/24/20 05:27 . Limitations to Documentation: no limitations . Information obtained by: patient and RN notes reviewed . HPI Narrative: Patient presents to ED with episode of right upper extremity numbness and weakness with associated aphasia. Patient had got up for the day around 5. While at the stove making her T she had onset of right upper extremity numbness, achiness, lack of strength. She went to wake her daughter and realized she could not speak. She could understand her daughter. Patient has never had anything similar in the past. She has elevated blood pressure but it is because of medication she is on for her pulmonary fibrosis. She does not smoke. She denies diabetes or hypercholesterolemia. Symptoms resolved after about 10 minutes. She had no headache, visual change, chest pain. There is no change in her breathing. She had no difficulty ambulating or dizziness. Related Data Home Medications Medication Instructions Recorded Confirmed ipratropium-albuterol 3 ml UPD Q4H PRN PRN #180 ml 12/25/18 11/24/20 mycophenolate mofetil 1,000 mg PO BID 12/14/19 11/24/20 nintedanib 150 mg PO BID 12/14/19 11/24/20 cephalexin 500 mg PO Q8H #19 cap 09/21/20 11/24/20 albuterol sulfate 2 puff INHALATION Q4H PRN PRN 11/24/20 11/24/20 benzonatate 100 mg PO TID 11/24/20 11/24/20 fluticasone propionate 2 spray INTRANASAL DAILY 11/24/20 11/24/20 megestrol 5 ml PO DAILY 11/24/20 11/24/20 oxycodone 5 mg PO HS 11/24/20 11/24/20 prednisone See Rx Instructions .ROUTE .COMPLEX 11/24/20 11/24/20 tramadol 50 mg PO 6XD PRN 11/24/20 11/24/20 Previous Rx's Medication Instructions Recorded ipratropium-albuterol 3 ml UPD Q4H PRN PRN #180 ml 12/25/18 cephalexin 500 mg PO Q8H #19 cap 09/21/20 Allergies Allergy/AdvReac Type Severity Reaction Status Date / Time Sulfa (Sulfonamide Allergy Severe throat Unverified 11/24/20 05:47 Antibiotics) swelling/can't breath levofloxacin Allergy Intermediate Other (See Unverified 11/24/20 05:47 Comment) General JAMIE: 4 Review of Systems Narrative: 05/31 Review of Systems completed and is negative except as stated above in HPI (Systems reviewed: Const, Eyes, ENT, Resp, CV, GI, , MSK, Skin, Neuro) [facility] Medical History (Updated 11/24/20 @ 07:06 by Lars Watt MD) Chronic back pain Pulmonary fibrosis Patient had previous work-up by Dr. Ferrara in [facility] in March 2018. Patient reports that her PFTs did not show underlying COPD, patient has a follow-up with Dr. 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 HEENT: NC/AT. Normal facial exam. Eyes: PERRL and EOMI. Neck: Supple. Trachea midline. Lungs: Baseline respiratory effort. Lungs w soft diffuse rales. Cor: RRR without murmur/gallop. Good radial pulses. GI: Soft. NT/ND. No guarding or rebound. Neuro: A+O x 3. Normal speech, mentation, gait. Cranial nerves II - XII grossly intact. No gross motor or sensory deficit. Baseline tremor. NIH 0. Ext: No C/C/E. Skin: Warm and dry without rash. Critical Care Time Critical Care Time Critical Care Time: Yes Total Critical Care Time: 45 Attestation: Upon my evaluation, this patient had a high probability of imminent or life- threatening deterioration, which required my direct attention, intervention, and personal management. I have personally provided minutes of critical care time exclusive of time spent on separately billable procedures. Time includes review of laboratory data, radiology results, discussion with consultants, and monitoring for potential decompensation. Interventions were performed as documented above.
[2020-11-24] MEDS: Normal Saline 1,000 ML 125 ML IV ×2 (05:50→09:11)
[2020-11-24 05:58] LABS: Abs Immature Grans 0.07 10^3/uL (0.0-0.06); Absolute Basophil Count 0.02 10^3/uL (0.0-0.2); Absolute Eosinophil Count 0.06 10^3/uL (0.0-0.7); Absolute Lymphocyte Count 4.21 10^3/uL (1.2-3.4); Absolute Monocyte Count 0.88 10^3/uL (0.1-0.8); Absolute Neutrophil Count 6.08 10^3/uL (1.2-6.7); Basophils % 0.2; Eosinophils % 0.5; HCT 46.4 % (36.0-46.0); HGB 14.4 g/dL (11.2-15.7); Immature Grans % 0.6; Lymphocytes % 37.2; MCH 30.1 pg (27.0-33.0); MCV 97.1 fL (80-95); MPV 8.2 fL (8.0-11.0); Monocytes % 7.8; Neutrophils % 53.7; Nucleated RBC 0 %; Platelet Count 363 10^3/uL (130-400); RBC 4.78 10^6/uL (3.93-5.22); RDW 15.8 % (11.7-14.6); RDW-SD 56.8 fL; WBC 11.32 10^3/uL (4.4-10.8)
--- NOTE | 2020-11-24 06:14 | DI.CT_ITS ---
EXAM: CT BRAIN NECK CTA CLINICAL HISTORY: RUE numb/weak with aphasia. TECHNIQUE: Imaging Protocol: Axial CT angiography was performed with multi-slice acquisition and mu lti-planar and/or 3D reconstructions. CONTRAST MATERIAL: Intravenous: Omnipaque 350 Contrast volume:85 mL COMPARISON: None for comparison. FINDINGS: CT Head W/O and W: Ventricles and Extra axial spaces: Normal in size and morphology for the patient's age. Hemorrhage: None. Cerebral parenchyma: Normal. No acute territorial infarct. Midline shift: None. Brainstem/Cerebellum: Normal. Calvarium: Normal. Visualized Paranasal sinuses/Mastoids: Clear. Soft Tissues: Unremarkable. Enhancement: Unremarkable. CTA Neck W: Common Carotid: Right: No dissection, occlusion or significant stenosis. Left: No dissection, occlusion or significant stenosis. External Carotid: Right: No occlusion or significant stenosis. Left: No occlusion or significant stenosis. Internal Carotid: Right: No dissection, occlusion or significant stenosis. Left: No dissection, occlusion or significant stenosis. Vertebral Artery: Right: No dissection, occlusion or significant stenosis. Left: No dissection, occlusion or significant stenosis. Lung Apices: Pulmonary fibrosis. Bones: There degenerative changes in the cervical spine particularly at C5-6 and C6-C7. Soft Tissues: Normal. CTA Brain W: Internal Carotid Arteries: Petrous: Normal. Cavernous: Normal. Cerebral: Normal. Anterior Cerebral Arteries: Right: No aneurysm, occlusion or significant stenosis. Left: No aneurysm, occlusion or significant stenosis. Middle Cerebral Arteries: Right: No aneurysm, occlusion or significant stenosis. Left: No aneurysm, occlusion or significant stenosis. Posterior cerebral Arteries: Right: No aneurysm, occlusion or significant stenosis. It appears to derive predominantly through th e posterior communicating artery. Left: No aneurysm, occlusion or significant stenosis. Vertebral Arteries: Right: No aneurysm, occlusion or significant stenosis. Left: No aneurysm, occlusion or significant stenosis. Basilar Artery: No aneurysm, occlusion or significant stenosis. IMPRESSION: 1. Normal CTA examination of the [place]. 2. Unremarkable noncontrast CT Head. 3. Normal CTA examination of the neck. RADIATION DOSE DELIVERED: 1,721.56mGy.cm Total DLP DATA REPOSITORY: All CT scans at this facility are submitted to the National Radiology Data Registry (NRDR) Dose Index Registry (DIR) with the [employer] (ACR). RADIATION OPTIMIZATION: All CT scans at this facility use at least one of these dose optimization te chniques: automated exposure control; mA and/or kV adjustment per patient size (includes targeted exa ms where dose is matched to clinical indication); or iterative reconstruction.
[2020-11-24 06:16] LABS: ALT 26 U/L (14-59); AST 25 U/L (15-37); Albumin 3.3 g/dL (3.4-5.0); Alkaline Phosphatase 68 U/L (46-116); Anion Gap 8.8 mmol/L (3-11); BUN 22 mg/dL (7-18); Bilirubin, Total 0.4 mg/dL (0.2-1.0); CO2 27.2 mmol/L (21.0-32.0); Calcium 8.9 mg/dL (8.5-10.1); Chloride 104 mmol/L (98-107); Estimated GFR 54.81 (mL/min/1.73m2); Glucose 90 mg/dL (74-106); Magnesium 1.9 mg/dL (1.8-2.4); Potassium 3.3 mmol/L (3.5-5.1); Sodium 140 mmol/L (136-145); Total Protein 7.2 g/dL (6.4-8.2)
[2020-11-24] MEDS: Normal Saline - Diluent 50 ML VIAL IV (06:33)
[2020-11-24] MEDS: Normal Saline Flush 10 ML SYR IVP (06:37)
--- NOTE | 2020-11-24 07:01 | DI.VRAD_ITS ---
PROCEDURE INFORMATION: Exam: CT Angiography Head Without And With Contrast Exam date and time: 11/24/2020 5:41 AM Age: 70 years old Clinical indication: Numbness TECHNIQUE: Imaging protocol: Computed tomographic angiography of the head without and with intravenous contrast. 3D rendering (Not supervised by radiologist): MIP and/or 3D reconstructed images were created by the technologist. Radiation optimization: All CT scans at this facility use at least one of these dose optimization techniques: automated exposure control; mA and/or kV adjustment per patient size (includes targeted exams where dose is matched to clinical indication); or iterative reconstruction. Contrast material: [id number]; Contrast volume: 85 ml; Contrast route: INTRAVENOUS (IV); Other technique: STROKE PROTOCOL was implemented. COMPARISON: No relevant prior studies available. FINDINGS: ANTERIOR CIRCULATION: Right internal carotid artery: Intracranial segment is patent with no significant stenosis or occlusion. No aneurysm. Right middle cerebral artery: No occlusion or significant stenosis. No aneurysm. Right anterior cerebral artery: No occlusion or significant stenosis. No aneurysm. Left internal carotid artery: Intracranial segment is patent with no significant stenosis. No aneurysm. Left middle cerebral artery: No occlusion or significant stenosis. No aneurysm. Left anterior cerebral artery: No occlusion or significant stenosis. No aneurysm. POSTERIOR CIRCULATION: Right vertebral artery: No occlusion or significant stenosis. No aneurysm. Left vertebral artery: No occlusion or significant stenosis. No aneurysm. Basilar artery: No occlusion or significant stenosis. No aneurysm. Right posterior cerebral artery: Right P2 segment is predominantly filled via the posterior communicating artery. Moderate to severe stenosis is seen at the origin of right P1. Left posterior cerebral artery: No occlusion or significant stenosis. No aneurysm. HEAD: Brain: There is no evidence of intraparenchymal hemorrhage, mass effect or extra-axial collection. No abnormal intracranial enhancement. Cerebral ventricles: Ventricular size is normal. Bones/joints: Unremarkable. No acute fracture. Paranasal sinuses: Visualized sinuses are normal. No fluid levels. Mastoid air cells: Visualized mastoids are normal. No mastoid effusion. Auditory system: The sinuses are well-aerated. Orbital cavity: Visualized intraorbital soft tissues are normal. Soft tissues: Unremarkable. IMPRESSION: Unremarkable CT angiogram of the brain. ASSESSMENT: ASPECTS (Cynthia Stroke Program Early CT Score) is 10. PROCEDURE INFORMATION: Exam: CT Angiography Neck Without And With Contrast Exam date and time: 11/24/2020 5:41 AM Age: 70 years old Clinical indication: Numbness TECHNIQUE: Imaging protocol: Computed tomographic angiography of the neck without and with contrast. 3D rendering (Not supervised by radiologist): MIP and/or 3D reconstructed images were created by the technologist. Radiation optimization: All CT scans at this facility use at least one of these dose optimization techniques: automated exposure control; mA and/or kV adjustment per patient size (includes targeted exams where dose is matched to clinical indication); or iterative reconstruction. Contrast material: [id number]; Contrast volume: 85 ml; Contrast route: INTRAVENOUS (IV); COMPARISON: No relevant prior studies available. FINDINGS: Right common carotid artery: No stenosis. No dissection or occlusion. Right internal carotid artery: No stenosis of the extracranial segment. No dissection or occlusion. Right external carotid artery: No occlusion or stenosis of the origin. Right vertebral artery: No stenosis. No dissection or occlusion. Left common carotid artery: No stenosis. No dissection or occlusion. Left internal carotid artery: No stenosis of the extracranial segment. No dissection or occlusion. Left external carotid artery: No occlusion or stenosis of the origin. Left vertebral artery: No stenosis. No dissection or occlusion. Bones/joints: Degenerative changes throughout the spine. Soft tissues: Normal. No significant soft tissue swelling. Lungs: Fibrotic changes in the lung apices. IMPRESSION: Unremarkable CT angiogram of the neck. REFERENCES: NASCET CRITERIA. The degree of internal carotid artery stenosis is based on NASCET criteria. Normal is no stenosis. Mild is less than 50% stenosis. Moderate is 50-69% stenosis. Severe is 70% to 99% stenosis. Total occlusion is no detectable patent lumen. Dictated and Authenticated by: Sravani Toussaint MD. Ordering:JEFFERY Sousa MD
[2020-11-24] MEDS: Aspirin 81 MG CHEW 324 MG CH (07:06)
[2020-11-24 08:00] LABS: Source Nasal/Nares
[2020-11-24 08:21] LABS: Troponin I < 0.05 ng/mL (<0.06)
[2020-11-24] MEDS: Potassium Chloride 20 MEQ TABCR 40 MEQ PO ×2 (10:38→13:57)
[2020-11-24] MEDS: Heparin 5,000 UNITS/ML VIAL 5000 UNITS SC ×2 (10:38→15:22)
[2020-11-24 12:07] LABS: Bilirubin Negative (Negative); Blood Negative (Negative); Clarity Clear (Clear); Glucose Negative (Negative); Ketones Negative (Negative); Leukocyte Esterase Negative (Negative); Nitrite Negative (Negative); Specific Gravity 1.015 (1.005-1.025); Urobilinogen 0.2 EU/dL (Up TO 0.2)
[2020-11-24 12:08] LABS: COVID-19 PCR Negative (Negative)
[2020-11-24 12:16] LABS: Epithelial Cells Negative HPF (Negative); Other Cells Rare Renal (Negative); RBC Negative HPF (0-2)
[2020-11-24 12:18] LABS: Bacteria Many HPF (Negative); C & S Indicated? Yes; Crystals Negative HPF (Negative); Mucus Negative (Negative)
--- NOTE | 2020-11-24 12:20 | DI.US_ITS ---
APPROVED REPORT EXAM: Comprehensive 2D, Doppler, and color-flow Echocardiogram Patient Location: In-Patient Room/Bed: 209 Fish Cleaner: Charissa Paniagua RDCS (AE) Indications: TIA Other Information Study Quality: Fair. Technically limited study due to body habitus. Conclusion Normal left ventricular wall thickness and chamber size. Estimated ejection fraction is 50 to 55%. The inferoapical segment appears dyskinetic Normal right ventricular size and systolic function Both atria are normal in size Sclerotic trileaflet aortic valve without stenosis or regurgitation Mild mitral annular calcification. Trace mitral regurgitation The tricuspid valve is structurally normal with trace regurgitation. Estimated right ventricular sys tolic pressure is 42 mmHg, mild pulmonary hypertension Mildly dilated ascending aorta Wall motion Left Ventricle The left ventricle is normal size. Left ventricular systolic function is mildly decreased. There is n ormal left ventricular wall thickness. Inferoapical segment is dyskinetic There is no ventricular sep ryan defect visualized. LVEF is 50-55%. Right Ventricle Right ventricle is grossly normal in size. The right ventricular systolic function is normal. The RVS P is 42.5mmHg. Atria The left atrium size is normal. The right atrium size is normal. The interatrial septum is intact wit h no evidence for an atrial septal defect. Aortic Valve The Aortic valve is sclerotic. Aortic valve is trileaflet. There is no aortic valvular stenosis. No a ortic regurgitation is present. There is no aortic valvular vegetation. Cannot exclude aortic valve v egetation. Mitral Valve Mild mitral annular calcification. No evidence of mitral valve stenosis. Trace mitral regurgitation. Tricuspid Valve The tricuspid valve is normal in structure. There is no tricuspid valve stenosis. Trace tricuspid reg urgitation. Pulmonic Valve The pulmonary valve is normal in structure. There is no pulmonic valvular stenosis. There is no pulmo leonel valvular regurgitation. Great Vessels The aortic root is normal in size. The ascending aorta is mildly dilated. Aortic arch is normal in ca liber. IVC is normal in size and collapses >50% with inspiration. Pericardium There is no pericardial effusion. 2D Dimensions IVSD d PLAX 0.87 cm F: 0.6-1.0 LV Vol A2C d MOD 81.1 mL LVPW d PLAX 0.82 cm F: 0.6 - 1.0 LV Vol A4C d MOD 82.8 mL LVID d PLAX 4.06 cm F: 3.8 - 5.2 LA vol/ BSA A4C s A-L 22.2 mL/m2 LVDs 2.85 cm F: 2.2 - 3.5 LA Area A4C s MOD 12.16 cm2 Ao Root d 2.89 cm F: 2.7 - 3.3 LV EF A4C MOD 50.4 % RA Area A4C 7.15 cm2 LV EF A2C MOD 55.4 % RA Vol/ BSA A4C s A-L 8.8 mL/m2 LV EF Biplane MOD 52.9 % Ao Asc Diam d 3.32 cm F: 2.3 - 3.1 SV 46.13 mL LV EF Teichholz 57.0 % SV Index 32.92 mL/m2 LVEF ([employer]) 52.86 % F: 54 - 74 LV Volume 74.77 mL F: 46 - 106 LV Volume Index 53.40 mL/m2 F: 29 - 61 LV Vol Biplane MOD 87.3 mL FS 29.45 % M-Mode TAPSE 2.42 cm (M/F) >1.7 LV Diastology MV E' medial 0.070 (>0.07 m/s) E/A Ratio 0.4 LV E/e MED 7.95 (<14) MV E Vmax 0.56 (0.4-1.3 m/s) MV E' lateral 0.106 (>0.1 m/s) MV A Vmax 1.25 (0.4-1.3 m/s) LV E/e LAT 5.25 (<14) MV E/A Ratio 0.45 MV E/E' medial 7.97 MV E/E' lateral 5.27 Aortic Valve LVOT Area 3.45 cm2 AoV Area Vmax 2.55 cm2 LVOT Vmax 0.85 m/s AoV Area/ BSA (Vmax) 1.82 cm2/m2 LVOT Mean Ayaan. 0.58 m/s OSKAR Mean Ayaan. 2.54 cm2 LVOT Peak Grad 2.9 mmHg OSKAR Mean Ayaan. Index 1.81 cm2/m2 LVOT Mean Grad 1.5 mmHg LVOT VTI 0.132 m LVOT Diam s 2.05 cm AoV Vmax 1.16 m/s Velocity Ratio 0.73 AoV Mean Ayaan. 0.79 m/s AoV Peak Grad 5.4 mmHg LVOT SV 45.43 mL AoV Mean Grad 2.8 mmHg AoV VTI 0.195 m AoV Area VTI 2.32 cm2 AoV Area/ BSA (VTI) 1.66 cm/m2 Mitral Valve MV DT 162 (160-240 msec) MV PHT 47 msec MV Area PHT 4.69 cm2 Pulmonary Valve PV Vmax 1.22 (0.5-1.5 m/s) RVOT Peak Gr. 2.81 mmHg PV Peak Grad 6.0 mmHg RVOT Mean Gr. 1.15 mmHg PV Mean Grad 3.9 mmHg RVOT VTI 0.112 m PV VTI 0.181 m RVOT Vmax 0.84 m/s Tricuspid Valve TR Peak Grad 39.4 mmHg TR Vmax 3.14 m/s RA Pressure 3.00 mmHg RVSP (TR) 42.5 mmHg
--- NOTE | 2020-11-24 12:26 | PDOC.CMIN ---
- If Service Date Differs Date of service: 11/24/20 Time of Service: 12:27 Care Management Initial Assess REASON FOR HOSPITALIZATION:: TIA PAST MEDICAL HISTORY/PAST SURGICAL HISTORY:: Pulmonary Fibrosis PREVIOUS FUNCTIONAL STATUS/SOCIAL/FAMILY SUPPORTS:: Ashley lives in a mobile home in [facility] with her daughter Marimar. She has a total of 5 children - 3 girls and 2 boys. Ashley explained that Klaa and Foster, the 2 oldest children have the same father and are 3 years apart. There was a 14 year hiatus before Ashley had the additional 3 children who share a different father. Ashley is independent at baseline and does all of her own shopping, housework and personal care and continues to drive. 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 Ashley is , having lost her to lung cancer about 12 years ago. CURRENT FUNCTIONAL STATUS:: Ashley was sitting up in bed when CM met with her. She explained that when she got up this morning around 5 am, she experienced sudden onset of numbness and inability to move her right arm. She was also unable to speak. Ashley stated the symptoms lasted about 10 minutes then resolved and have not returned. She has had imaging since she arrived at [facility] which has not revealed any gross abnormalities. Bloodwork is WNL. Ashley is hypertensive with systolic pressures above 200 at times. She indicated to the ED provider that this is normal for her and is due to medicatiuon she takes for her pulmonary fibrosis. In conversation, Ashley shared that her children do not always get along. There are 2 older jefferyen who are close and 3 younger ones, by about 15 years. Due to some initial confusion, CM assisted Ashley with the completion of a new HIPAA directive which now includes all of her children except Foster, her oldest son. Ashley stated that he would not want to discuss her health issues. ADVANCE DIRECTIVES:: Ashley states that she has Advanced Directives but that they are filed in [place], not [facility]. She identified her daughter Kala as her HCA. . Has patient been provided with info about the portal/API?: Yes Did the patient sign up for the portal?: No CODE STATUS:: Full Code INSURANCE COVERAGE / FINANCIAL ISSUES:: Medicare. Medicaid CURRENT HOME/COMMUNITY SERVICES/EQUIPMENT:: None PRIMARY CARE PHYSICIAN:: Chloe Barrett POTENTIAL DISCHARGE NEEDS:: Follow up with PCP and discharge plan of care PATIENT/FAMILY EDUCATION NEEDS:: Review of discharge instrutions, follow up plan, limitations and Ask Me Three TRANSPORTATION:: via private vehicle with family PLAN:: Ashley will likely be discharged home with no new services. She will follow up with her community providers and discharge plan of care and transport with family. CM will continue to support Ashley and her family and assess for ongoing discharge needs. Children: Kala - HCA . Dona- . Melquiades - . Marimar - daughter Ashley lives with -
[2020-11-24 13:10] LABS: Troponin I < 0.05 ng/mL (<0.06)
[2020-11-24] MEDS: predniSONE 20 MG TAB PO (13:57)
--- NOTE | 2020-11-24 15:54 | W.PM.HP.N ---
Date of service: 11/24/20 Time of Service: 09:30 Assessment and Plan Assessment and plan (1) TIA (transient ischemic attack): Start date: 11/24/20 Start time: 16:02 Status: Acute Assessment and plan: Right upper extremity weakness aphasia has disappeared given asa will place on teley statin f/u with neuro as outpatient MRI Echo above case discussed with Dr. Roper History of Present Illness History of Present Illness Chief Complaint: Right sided weakness Narrative: 70 y.o female with PMH s/p gastric bypass, pulmonary fibross, COPD, Chronic back pain on narcotics, presented to [facility] after waking up at 5 am and having difficulty with speaking and moving when making her tea at the stove. She went to wake her daughter up and was brought to the ED. Labs in the ED significant for elevated wbc however she is on prednisone taper bronchitis prior to admission, potassium 3.3 repleted with po supplementation. She was asked to be admitted to /s for further management. She was placed in teley on obs. CTA head and neck unremarkable, MRI does reveal small acute infarct, she was give asa in ED and will be started on statin, she denies CP, SOB, N/V/D. Review of Systems All systems reviewed & are unremarkable except as noted in HPI and below PFSH Medical History Chronic back pain Pulmonary fibrosis Patient had previous work-up by Dr. Ferrara in [facility] in March 2018. Patient reports that her PFTs did not show underlying COPD, patient has a follow-up with Dr. 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 [employer] Current gender identity: female What type of physical activity do you participate in: walking Frequency: daily Do you feel safe at home: Yes Do you feel safe in your relationship?: Yes History History 4 Para Hx # Term Pregnancies 4 Multiple births Hx # Pregnancies Ectopic pregnancies AB induced Hx Number of Living Children AB spontaneous Meds Home Medications and Allergies Allergies Allergy/AdvReac Type Severity Reaction Status Date / Time Sulfa (Sulfonamide Allergy Severe throat Unverified 11/24/20 05:47 Antibiotics) swelling/can't breath levofloxacin Allergy Intermediate Other (See Unverified 11/24/20 05:47 Comment) Home Medications Medication Instructions Recorded Confirmed Type ipratropium-albuterol 3 ml UPD Q4H PRN PRN #180 ml 12/25/18 11/24/20 Rx mycophenolate mofetil 1,000 mg PO BID 12/14/19 11/24/20 History nintedanib 150 mg PO BID 12/14/19 11/24/20 History albuterol sulfate 2 puff INHALATION Q4H PRN PRN 11/24/20 11/24/20 History benzonatate 100 mg PO TID 11/24/20 11/24/20 History fluticasone propionate 2 spray INTRANASAL DAILY 11/24/20 11/24/20 History megestrol 5 ml PO DAILY 11/24/20 11/24/20 History oxycodone 5 mg PO HS 11/24/20 11/24/20 History prednisone See Rx Instructions .ROUTE .COMPLEX 11/24/20 11/24/20 History tramadol 50 mg PO 6XD PRN 11/24/20 11/24/20 History Exam Narrative Exam Narrative: Const: Elderly female younger than stated age, poor dentition, AAOx3, able to move 3 out 4 extremities with full strength Eyes: PERRLA Resp: LSC to all garcia Cardio: RRR without any ectopic beats GI: Abd soft nontender, BS x 4 Skin: intact with bruising to arms Psych: calm, cooperative. Results Labs Result diagrams: 11/24/20 05:45 11/24/20 05:45 Labs: Laboratory Results - last 24 hr 11/24/20 11/24/20 11/24/20 05:45 05:45 07:40 WBC 11.32 H RBC 4.78 Hgb 14.4 Hct 46.4 H MCV 97.1 H MCH 30.1 MCHC 31.0 L RDW 15.8 H Plt Count 363 MPV 8.2 Immature Gran % 0.6 Neutrophils % 53.7 Lymphocytes % 37.2 Monocytes % 7.8 Eosinophils % 0.5 Basophils % 0.2 Nucleated RBC % 0 Absolute Neutrophils 6.08 Absolute Lymphocytes 4.21 H Absolute Monocytes 0.88 H Absolute Eosinophils 0.06 Absolute Basophils 0.02 Sodium 140 Potassium 3.3 L Chloride 104 Carbon Dioxide 27.2 Anion Gap 8.8 BUN 22 H Creatinine 1.0 Estimated GFR/1.73 m2 54.81 Glucose 90 Calcium 8.9 Magnesium 1.9 Total Bilirubin 0.4 AST 25 ALT 26 Alkaline Phosphatase 68 Troponin I < 0.05 Total Protein 7.2 Albumin 3.3 L Urine Color Urine Clarity Urine pH Ur Specific [place] Urine Protein Urine Ketones Urine Blood Urine Nitrite Urine Bilirubin Urine Urobilinogen Ur Leukocyte Esterase Urine RBC Urine WBC Ur Epithelial Cells Urine Crystals Urine Bacteria Urine Mucus Urine Other Ur Culture Indicated? Urine Glucose COVID-19 Source Nasal/nares SARS-CoV-2 (PCR) Negative 11/24/20 11/24/20 11:50 12:00 WBC RBC Hgb Hct MCV MCH MCHC RDW Plt Count MPV Immature Gran % Neutrophils % Lymphocytes % Monocytes % Eosinophils % Basophils % Nucleated RBC % Absolute Neutrophils Absolute Lymphocytes Absolute Monocytes Absolute Eosinophils Absolute Basophils Sodium Potassium Chloride Carbon Dioxide Anion Gap BUN Creatinine Estimated GFR/1.73 m2 Glucose Calcium Magnesium Total Bilirubin AST ALT Alkaline Phosphatase Troponin I < 0.05 Total Protein Albumin Urine Color Yellow Urine Clarity Clear Urine pH 7.0 Ur Specific [place] 1.015 Urine Protein 100 H Urine Ketones Negative Urine Blood Negative Urine Nitrite Negative Urine Bilirubin Negative Urine Urobilinogen 0.2 Ur Leukocyte Esterase Negative Urine RBC Negative Urine WBC 5-10 Ur Epithelial Cells Negative Urine Crystals Negative Urine Bacteria Many Urine Mucus Negative Urine Other Rare renal Ur Culture Indicated? Yes Urine Glucose Negative COVID-19 Source SARS-CoV-2 (PCR) Last Vital Signs Temp 37.1 C 11/24/20 15:40 Pulse 92 H 11/24/20 15:40 Resp 20 11/24/20 15:40 BP 159/94 H 11/24/20 15:40 Pulse Ox 96 11/24/20 15:40 COVID-19 Screening Have you, or household traveled for leisure in last 14 days?: No Had IN PERSON contact w/suspected or confirmed C-19 person: No
--- NOTE | 2020-11-24 16:04 | DSE_ITS ---
Date of service: 11/24/20 Time of Service: 16:04 DS: Diagnosis Discharge Diagnosis (1) TIA (transient ischemic attack): Start date: 11/24/20 Start time: 16:04 Status: Acute Asessment and Plan: MRI revealing small acute infarct Will start on statin 40 mg 81 mg asa daily f/u with neuro f/u labs and outpatient follow to discuss labs 30 day event recorder RUE weakness, otherwise no residual CTA normal findings, Echo with EF 50-55% EF RVSP 42.5, F/U with PCP next week above case discussed with PCP Discharge Plan Disposition Patient Disposition: HOME Condition: Improving Discharge Details Reason For Visit: TIA Admit Date/Time: 11/24/20 07:46 Admit Provider: Jessica Roper Attending Provider: Jessica Roper Primary Care Provider: Chloe Barrett [facility] Hospital Course Hospital Course: 70 y.o female with PMH s/p gastric bypass, pulmonary fibross, COPD, Chronic back pain on narcotics, presented to [facility] after waking up at 5 am and having difficulty with speaking and moving when making her tea at the stove. She went to wake her daughter up and was brought to the ED. Labs in the ED significant for elevated wbc however she is on prednisone taper bronchitis prior to admission, potassium 3.3 repleted with po supplementation. She was asked to be admitted to m/s for further management. She was placed in teley on obs. CTA head and neck unremarkable, MRI did reveal small acute infarct. Echo: The left ventricle is normal size. Left ventricular systolic function is mildly decreased. There is normal left ventricular wall thickness. There is no ventricular septal defect visualized. LVEF is 50-55%. Right Ventricle Right ventricle is grossly normal in size. The right ventricular systolic function is normal. The RVSP is 42.5mmHg. Atria The left atrium size is normal. The right atrium size is normal. The interatrial septum is intact with no evidence for an atrial septal defect. Aortic Valve The Aortic valve is sclerotic. Aortic valve is trileaflet. There is no aortic valvular stenosis. No aortic regurgitation is present. Mitral Valve Mild mitral annular calcification. No evidence of mitral valve stenosis. Trace mitral regurgitation. Tricuspid Valve The tricuspid valve is normal in structure. There is no tricuspid valve stenosis. Trace tricuspid regurgitation. Pulmonic Valve The pulmonary valve is normal in structure. There is no pulmonic valvular stenosis. There is no pulmonic valvular regurgitation. Great Vessels The aortic root is normal in size. The ascending aorta is mildly dilated. Aortic arch is normal in caliber. IVC is normal in size and collapses >50% with inspiration. Pericardium There is no pericardial effusion. She is being discharged home with f/u appt with neuro, on asa 81 mg, a statin 40 mg, 30 day cardiac event recorder, outpatient labs. Follow up with PCP next week. She feels well enough to go home and feels strong. She is agreeable to the plan. She denies CP, SOB, N/V/D. Home Meds and New Rx's Prescriptions: New aspirin 81 mg Tablet,Delayed Release (Dr/Ec) 81 mg PO DAILY Qty: 30 RF: 0 atorvastatin 40 mg tablet 40 mg PO DAILY Qty: 20 RF: 0 Continued mycophenolate mofetil 500 mg Tablet 1,000 mg PO BID RF: 0 nintedanib 100 mg Capsule 150 mg PO BID RF: 0 prednisone 20 mg tablet See Rx Instructions .ROUTE .COMPLEX RF: 0 tramadol 50 mg tablet 50 mg PO 6XD PRNRF: 0 benzonatate 100 mg capsule 100 mg PO TID RF: 0 albuterol sulfate 90 mcg/actuation HFA aerosol inhaler 2 puff inhalation Q4H PRN PRNRF: 0 oxycodone 5 mg tablet 5 mg PO HS RF: 0 megestrol 625 mg/5 mL (125 mg/mL) suspension 5 ml PO DAILY RF: 0 fluticasone propionate 50 mcg/actuation spray,suspension 2 spray INTRANASAL DAILY RF: 0 ipratropium-albuterol 0.5 mg-3 mg(2.5 mg base)/3 mL Solution For Nebulization 3 ml UPD Q4H PRN PRN (Reason: shortness of breath) Qty: 180 RF: 0 Discharge Instructions Instructions: Atorvastatin (By mouth), Ischemic Stroke (DC), Self Care Measures After a Stroke (DC), Stroke (DC) Additional Instructions: Get labs done then follow up with your Primary care provider to go over the labs Do all normal activity with the cardiac event recorder Follow up with neurology Take atorvastatin every day Take baby aspirin every day to prevent stroke the benefit outweighs the risk of not taking it. MRI reveals that you did have a small acute stroke that is why it is important to take the aspirin Referrals: Chloe Barrett [Primary Care Provider] - (new acute infarct review labs with patient) Ellen Anderson MD [ [facility] STAFF PHYSICIAN] - (as soon as possible, new acute infarct) Activity:: Activity as Tolerated Equipment/Supplies:: No Equipment Needed Diet:: Low Sodium Discharge Orders Discharge Orders: Discharge Order (Routine); Ordered 11/24/20 Ordered By: Pilar Wallace Other Ambulatory Orders: Hemoglobin A1C (Routine) Location: None Selected Ordered By: Pilar Wallace Lipid 2 (Routine) Location: None Selected Ordered By: Pilar Wallace DS: Summary Time Spent with Patient providing and/or coordinating discharge services: Greater than 30 minutes (approx 60 mins) Status at Discharge Functional status at discharge: independent ambulation Overall status at discharge: patient is progressing back to baseline Mental Status: mental status grossly normal Speech and Movement: speech and movement normal Mood: congruent mood Affect: normal affect Exam Narrative Exam Narrative: Const: Elderly female younger than stated age, poor dentition, AAOx3, able to move 3 out 4 extremities with full strength Eyes: PERRLA Resp: LSC to all garcia Cardio: RRR without any ectopic beats GI: Abd soft nontender, BS x 4 Skin: intact with bruising to arms Psych: calm, cooperative. Psych Mental Status: mental status grossly normal Speech and Movement: speech and movement normal Mood: congruent mood Affect: normal affect DS: Data Vitals/I&O Vitals and I&O: Vital Signs Temperature 37.1 C 11/24/20 15:40 Temperature Source Tympanic 11/24/20 15:40 Pulse 92 H 11/24/20 15:40 Pulse Rhythm Regular 11/24/20 08:57 Pulse 84 11/24/20 08:16 Respiratory Rate 20 11/24/20 15:40 Respiratory Effort Non-Labored 11/24/20 08:57 Respiratory Depth Normal 11/24/20 08:57 Respiratory Pattern Normal 11/24/20 08:57 Blood Pressure 159/94 H 11/24/20 15:40 Blood Pressure Mean 109 11/24/20 08:16 Blood Pressure Position Sitting 11/24/20 05:30 Pulse Oximetry 96 11/24/20 15:40 Oxygen Delivery Method Room Air 11/24/20 15:40 Oxygen Flow Rate 0 11/24/20 15:40 Pain Level 0 11/24/20 15:40 Comment 11/24/20 15:20 Intake & Output 11/23/20 11/24/20 11/24/20 23:59 11:59 23:59 Intake Total 918.75 / 1573.333 654.583 / 1573.333 Output Total 500 / 1400 900 / 1400 Balance 418.75 / 173.333 -245.417 / 173.333 Weight 57.153 kg Intake: IV 438.75 / 853.333 414.583 / 853.333 Oral 480 / 720 240 / 720 Output: Urine 500 / 1400 900 / 1400 Other: Urine Color Pale Yellow Yellow Urine Appearance Clear Cloudy Cloudy Urine Odor Normal Normal Comment Void x1 in the bedside commode. Void x1 in the toilet. Stool Size Moderate Stool Characteristics Soft Formed Brown Voiding Methods Bedside Commode Bedside Commode Data Completed and Pending Completed studies during hospitalization [Text1]: Exam(s) a MRI:MR brain wo EXAM: MR BRAIN WO CLINICAL HISTORY: TIA TECHNIQUE: Multiplanar multisequence MRI of the brain was performed. COMPARISON: CT CT BRAIN NECK CTA from 11/24/2020 FINDINGS: VENTRICLES AND EXTRA AXIAL SPACES: Normal in size and morphology for the patient's age. MIDLINE SHIFT: None. CEREBRAL PARENCHYMA: No space-occupying lesion identified. There are areas of hyperintense signal in the white matter including the clifton and brainstem on the T2 and FLAIR images likely reflecting small vessel ischemic disease. There does appear to be a small focus of restricted diffusion in the left centrum semiovale which may represent a small acute infarct. HEMORRHAGE: None. BRAINSTEM/CEREBELLUM: Normal. CALVARIUM: Normal. VISUALIZED PARANASAL SINUSES/MASTOIDS:Clear. [place]: Normal flow void. PITUITARY GLAND: Unremarkable. OTHER FINDINGS: None. IMPRESSION: Question of a subtle focus of restricted diffusion in the left centrum semiovale which may represent a small acute infarct. Exam(s) PROCEDURE INFORMATION: Exam: CT Angiography Head Without And With Contrast Exam date and time: 11/24/2020 5:41 AM Age: 70 years old Clinical indication: Numbness TECHNIQUE: Imaging protocol: Computed tomographic angiography of the head without and with intravenous contrast. 3D rendering (Not supervised by radiologist): MIP and/or 3D reconstructed images were created by the technologist. Radiation optimization: All CT scans at this facility use at least one of these dose optimization techniques: automated exposure control; mA and/or kV adjustment per patient size (includes targeted exams where dose is matched to clinical indication); or iterative reconstruction. Contrast material: [id number]; Contrast volume: 85 ml; Contrast route: INTRAVENOUS (IV); Other technique: STROKE PROTOCOL was implemented. COMPARISON: No relevant prior studies available. FINDINGS: ANTERIOR CIRCULATION: Right internal carotid artery: Intracranial segment is patent with no significant stenosis or occlusion. No aneurysm. Right middle cerebral artery: No occlusion or significant stenosis. No aneurysm. Right anterior cerebral artery: No occlusion or significant stenosis. No aneurysm. Left internal carotid artery: Intracranial segment is patent with no significant stenosis. No aneurysm. Left middle cerebral artery: No occlusion or significant stenosis. No aneurysm. Left anterior cerebral artery: No occlusion or significant stenosis. No aneurysm. POSTERIOR CIRCULATION: Right vertebral artery: No occlusion or significant stenosis. No aneurysm. Left vertebral artery: No occlusion or significant stenosis. No aneurysm. Basilar artery: No occlusion or significant stenosis. No aneurysm. Right posterior cerebral artery: Right P2 segment is predominantly filled via the posterior communicating artery. Moderate to severe stenosis is seen at the origin of right P1. Left posterior cerebral artery: No occlusion or significant stenosis. No aneurysm. HEAD: Brain: There is no evidence of intraparenchymal hemorrhage, mass effect or extra-axial collection. No abnormal intracranial enhancement. Cerebral ventricles: Ventricular size is normal. Bones/joints: Unremarkable. No acute fracture. Paranasal sinuses: Visualized sinuses are normal. No fluid levels. Mastoid air cells: Visualized mastoids are normal. No mastoid effusion. Auditory system: The sinuses are well-aerated. Orbital cavity: Visualized intraorbital soft tissues are normal. Soft tissues: Unremarkable. IMPRESSION: Unremarkable CT angiogram of the brain. ASSESSMENT: ASPECTS (Cynthia Stroke Program Early CT Score) is 10. PROCEDURE INFORMATION: Exam: CT Angiography Neck Without And With Contrast Exam date and time: 11/24/2020 5:41 AM Age: 70 years old Clinical indication: Numbness TECHNIQUE: Imaging protocol: Computed tomographic angiography of the neck without and with contrast. 3D rendering (Not supervised by radiologist): MIP and/or 3D reconstructed images were created by the technologist. Radiation optimization: All CT scans at this facility use at least one of these dose optimization techniques: automated exposure control; mA and/or kV adjustment per patient size (includes targeted exams where dose is matched to clinical indication); or iterative reconstruction. Contrast material: [id number]; Contrast volume: 85 ml; Contrast route: INTRAVENOUS (IV); COMPARISON: No relevant prior studies available. FINDINGS: Right common carotid artery: No stenosis. No dissection or occlusion. Right internal carotid artery: No stenosis of the extracranial segment. No dissection or occlusion. Right external carotid artery: No occlusion or stenosis of the origin. Right vertebral artery: No stenosis. No dissection or occlusion. Left common carotid artery: No stenosis. No dissection or occlusion. Left internal carotid artery: No stenosis of the extracranial segment. No dissection or occlusion. Left external carotid artery: No occlusion or stenosis of the origin. Left vertebral artery: No stenosis. No dissection or occlusion. Bones/joints: Degenerative changes throughout the spine. Soft tissues: Normal. No significant soft tissue swelling. Lungs: Fibrotic changes in the lung apices. IMPRESSION: Unremarkable CT angiogram of the neck. REFERENCES: NASCET CRITERIA. The degree of internal carotid artery stenosis is based on NASCET criteria. Normal is no stenosis. Mild is less than 50% stenosis. Moderate is 50-69% stenosis. Severe is 70% to 99% stenosis. Total occlusion is no detectable patent lumen. Labs on day of discharge: Labs from last 24 hours 11/24/20 11/24/20 11/24/20 12:00 11:50 07:40 WBC RBC Hgb Hct MCV MCH MCHC RDW Plt Count MPV Immature Gran % Neutrophils % Lymphocytes % Monocytes % Eosinophils % Basophils % Nucleated RBC % Absolute Neutrophils Absolute Lymphocytes Absolute Monocytes Absolute Eosinophils Absolute Basophils Sodium Potassium Chloride Carbon Dioxide Anion Gap BUN Creatinine Estimated GFR/1.73 m2 Glucose Calcium Magnesium Total Bilirubin AST ALT Alkaline Phosphatase Troponin I < 0.05 Total Protein Albumin Urine Color Yellow Urine Clarity Clear Urine pH 7.0 Ur Specific [place] 1.015 Urine Protein 100 H Urine Ketones Negative Urine Blood Negative Urine Nitrite Negative Urine Bilirubin Negative Urine Urobilinogen 0.2 Ur Leukocyte Esterase Negative Urine RBC Negative Urine WBC 5-10 Ur Epithelial Cells Negative Urine Crystals Negative Urine Bacteria Many Urine Mucus Negative Urine Other Rare renal Ur Culture Indicated? Yes Urine Glucose Negative COVID-19 Source Nasal/nares SARS-CoV-2 (PCR) Negative 11/24/20 11/24/20 05:45 05:45 WBC 11.32 H RBC 4.78 Hgb 14.4 Hct 46.4 H MCV 97.1 H MCH 30.1 MCHC 31.0 L RDW 15.8 H Plt Count 363 MPV 8.2 Immature Gran % 0.6 Neutrophils % 53.7 Lymphocytes % 37.2 Monocytes % 7.8 Eosinophils % 0.5 Basophils % 0.2 Nucleated RBC % 0 Absolute Neutrophils 6.08 Absolute Lymphocytes 4.21 H Absolute Monocytes 0.88 H Absolute Eosinophils 0.06 Absolute Basophils 0.02 Sodium 140 Potassium 3.3 L Chloride 104 Carbon Dioxide 27.2 Anion Gap 8.8 BUN 22 H Creatinine 1.0 Estimated GFR/1.73 m2 54.81 Glucose 90 Calcium 8.9 Magnesium 1.9 Total Bilirubin 0.4 AST 25 ALT 26 Alkaline Phosphatase 68 Troponin I < 0.05 Total Protein 7.2 Albumin 3.3 L Urine Color Urine Clarity Urine pH Ur Specific [place] Urine Protein Urine Ketones Urine Blood Urine Nitrite Urine Bilirubin Urine Urobilinogen Ur Leukocyte Esterase Urine RBC Urine WBC Ur Epithelial Cells Urine Crystals Urine Bacteria Urine Mucus Urine Other Ur Culture Indicated? Urine Glucose COVID-19 Source SARS-CoV-2 (PCR) 11/24/20 11:50 Urine - Reflex from Urine Culture - Pending Preliminary micro results at discharge 11/24/20 11:50 Urine Culture - Pending Urine - Reflex from Critical access hospital Medical History Chronic back pain Pulmonary fibrosis Patient had previous work-up by Dr. Ferrara in [facility] in March 2018. Patient reports that her PFTs did not show underlying COPD, patient has a follow-up with Dr. Giron in February 16, 2019 Surgical History S/P cholecystectomy S/P gastric bypass S/P hernia repair S/P hysterectomy Social History Smoking/Tobacco Use Status: Never Second Hand Exposure: Yes (Secondary to her parents as well as ) Smoking risk assessment performed?: Yes Alcohol Intake: never Drug use: Never Substance use type: does not use Household members: family and children 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 [employer] Current gender identity: female What type of physical activity do you participate in: walking Frequency: daily Do you feel safe at home: Yes Do you feel safe in your relationship?: Yes History History 4 Para Hx # Term Pregnancies 4 Multiple births Hx # Pregnancies Ectopic pregnancies AB induced Hx Number of Living Children AB spontaneous
--- NOTE | 2020-11-25 09:16 | PT.INNT ---
Date of service: 11/25/20 Time of Service: 09:16 PT Notes Visit Reasons: TIA (cardiology) Patient was cleared by hospitalist to discharge to home on 11/24/2020. No skilled PT services were provided for this admission. Thank you for the opportunity to participate in the care of this patient. Negra Marrero PT, DPT, CLT [facility] [place], [place]
--- NOTE | 2020-12-25 10:10 | W.CARDEVENT ---
Date of service: 12/25/20 Time of Service: 10:10 Cardiac Event Recorder Referring Provider:: Pola Indications:: TIA Cardiac Event Note: There is a 30-day monitor order for indication of TIA. ?The patient was in normal sinus rhythm for the majority of the recording with an average heart rate of 81 bpm. ?There was 1 critical event which correlated with a 10 beat run of NSVT. There were no symptoms correlated with this episode. ?There was 1 patient triggered events which was associated with sinus rhythm. ?No episodes of atrial fibrillation, no pauses greater than 3 seconds and no evidence of high degree heart block.
== END 2020-11-24 18:12 | disposition home or self-care (01) ==
LOC: ER 07:06 → MS 08:35
PROVIDERS: Nurse Practitioner Family; Student in an Organized Health Care Education/Training Program; Admitting Provider Internal Medicine; Emergency Provider Emergency Medicine; PCP Physician Assistant Medical; Visit Provider Internal Medicine
DX: G45.9 Transient cerebral ischemic attack, unspecified (principal); R47.01 Aphasia; Z98.84 Bariatric surgery status; J44.9 Chronic obstructive pulmonary disease, unspecified; G89.29 Other chronic pain; M54.9 Dorsalgia, unspecified; Z79.891 Long term (current) use of opiate analgesic
CPT/HCPCS: 36415; 36416; 70496; 70498; 80053; 82962; 87077; 87635; 93005; 93270; 93306; 96360; 96361; 99217; 99220; 99291; 70551; 81003; 81015; 83735; 84484; 85025; 87086; 87186; 93010; G0378; J1644; J3490; J7512; J9999

== ENCOUNTER 2020-11-28 03:41 | Outpatient (CLI) | payer MEDICARE, MEDICAID, SELFPAY ==
[2020-11-28 09:37] LABS: HCT 46.6 % (36.0-46.0); HGB 14.5 g/dL (11.2-15.7); MCH 30.4 pg (27.0-33.0); MCHC 31.1 % (32.0-36.0); MCV 97.7 fL (80-95); MPV 8.6 fL (8.0-11.0); Platelet Count 332 10^3/uL (130-400); RBC 4.77 10^6/uL (3.93-5.22); RDW 15.6 % (11.7-14.6); RDW-SD 56.7 fL; WBC 11.86 10^3/uL (4.4-10.8)
[2020-11-28 10:16] LABS: Hemoglobin A1C 5.7 % (<5.7)
[2020-11-28 10:49] LABS: ALT 39 U/L (14-59); AST 64 U/L (15-37); Albumin 3.1 g/dL (3.4-5.0); Alkaline Phosphatase 101 U/L (46-116); Bilirubin, Direct 0.2 mg/dL (0.0-0.2); Bilirubin, Total 0.4 mg/dL (0.2-1.0); Total Protein 6.4 g/dL (6.4-8.2)
[2020-11-28 11:08] LABS: Calculated LDL 36 mg/dL (<100); Cholesterol 155 mg/dL (<200); HDL Cholesterol 98 mg/dL (40-60); Triglyceride 107 mg/dL (<150)
--- NOTE | 2020-12-06 09:35 | RESPIRATORY ---
12/06/20 0910: Spoke with SARTHAK Javier @ [facility] which is Pt's PCP as the Pt's CER is reporting Sinus Rhythm with Run of V-Tach (10 Beats).
== END 2020-11-28 03:42 | disposition home or self-care (01) ==
PROVIDERS: Nurse Practitioner Family; PCP Physician Assistant Medical; Visit Provider Internal Medicine
DX: J84.10 Pulmonary fibrosis, unspecified (principal); G45.9 Transient cerebral ischemic attack, unspecified; Z79.891 Long term (current) use of opiate analgesic; G89.29 Other chronic pain
CPT/HCPCS: 36415; 80061; 80076; 85027; 83036

== ENCOUNTER 2021-01-11 11:04 | Emergency (ER) | payer MEDICARE, MEDICAID, SELFPAY ==
[2021-01-11 11:09] VITALS: BP 165/98; PULSE 96; RESP 22; TEMP 36.2; O2SAT 94
--- NOTE | 2021-01-11 11:15 | DI.RAD_ITS ---
Exam(s) XR WRIST LT COMPLETE EXAM: XR WRIST LT COMPLETE CLINICAL HISTORY: R/O Fracture, Erythema, swelling, unknown injury. TECHNIQUE: 2D digital imaging was performed. COMPARISON: No exams were available for comparison FINDINGS: There is no evidence of acute fracture or dislocation. No significant ulnar variance. No obvious sc aphoid fracture. Degenerative changes are noted in the articulation between the distal scaphoid and trapezium-trapezoid bones. Also moderate degenerative changes at the articulation between the thumb metacarpal and trapezium. IMPRESSION: Degenerative changes. No fractures evident. DATA REPOSITORY: RADIATION DOSE DELIVERED:
--- NOTE | 2021-01-11 11:28 | W.ED.GENAD ---
Discharge Plan Disposition Patient Disposition: HOME Condition: Stable Discharge Details Clinical Impression: Cellulitis of left wrist, Arthritis of left wrist Primary Care Provider: Chloe Barrett ED Provider: Olivia Odonnell Home Meds and New Rx's Prescriptions: New cephalexin 500 mg capsule 500 mg PO BID 7 Days Qty: 14 RF: 0 No Action mycophenolate mofetil 500 mg Tablet 1,000 mg PO BID RF: 0 nintedanib 100 mg Capsule 150 mg PO BID RF: 0 tramadol 50 mg tablet 50 mg PO 6XD PRNRF: 0 benzonatate 100 mg capsule 100 mg PO TID RF: 0 albuterol sulfate 90 mcg/actuation HFA aerosol inhaler 2 puff inhalation Q4H PRN PRNRF: 0 oxycodone 5 mg tablet 5 mg PO HS RF: 0 megestrol 625 mg/5 mL (125 mg/mL) suspension 5 ml PO DAILY RF: 0 fluticasone propionate 50 mcg/actuation spray,suspension 2 spray INTRANASAL DAILY RF: 0 aspirin 81 mg Tablet,Delayed Release (Dr/Ec) 81 mg PO DAILY Qty: 30 RF: 0 atorvastatin 40 mg tablet 40 mg PO DAILY Qty: 20 RF: 0 ipratropium-albuterol 0.5 mg-3 mg(2.5 mg base)/3 mL Solution For Nebulization 3 ml UPD Q4H PRN PRN (Reason: shortness of breath) Qty: 180 RF: 0 cyanocobalamin (vitamin B-12) [Vitamin B-12] 1,000 mcg Tablet 1,000 mcg PO DAILY RF: 0 Discharge Instructions Instructions: Cellulitis (ED), Arthritis (ED) Additional Instructions: Rest, ice, compression, elevate your arm at heart level or above while sitting or laying down. Use the splint as needed for comfort. Take antibiotic twice daily for the next 10 days. If the redness or swelling gets worse over the next 3 to 5 days if you have any fever, chills or feeling sicker at any time please return or call your PCP to be seen sooner. Follow up with primary care provider in 3-5 days. Return to ED sooner if any worsening or concerns. Increase oral fluids. You may also follow-up with orthopedics if needed. Referrals: Rober Cho [ NON-[facility] STAFF PHYSICIAN] - Medical Decision Making 70-year-old female presents to the ED with chief complaint of left wrist pain, swelling, erythema which began with pain Friday morning noticed swelling Friday. She does report that a Chihuahua dog jumped on her wrist on Friday night. She does have flexion of her DIP PIPs. There is some warmth. Radial pulses intact, cap refill less than 2 cm. She did report to me taking oxycodone 5 mg prior to arrival which did little to nothing to help her pain. Has not taken any Tylenol today. Did take tramadol at 5:00 this morning. Denies any proximal injuries no elbow tenderness no shoulder tenderness denies any chills or fever no systemic symptoms. Denies drugs, denies alcohol. Has a past medical history of pulmonary fibrosis, chronic back pain, TIA. At this time imaging ordered left wrist x-ray to rule out underlying bony abnormality. EXAM: XR WRIST LT COMPLETE CLINICAL HISTORY: R/O Fracture, Erythema, swelling, unknown injury. TECHNIQUE: 2D digital imaging was performed. COMPARISON: No exams were available for comparison FINDINGS: There is no evidence of acute fracture or dislocation. No significant ulnar variance. No obvious scaphoid fracture. Degenerative changes are noted in the articulation between the distal scaphoid and trapezium-trapezoid bones. Also moderate degenerative changes at the articulation between the thumb metacarpal and trapezium. IMPRESSION: Degenerative changes. No fractures evident. Differential includes but not limited to cellulitis, septic joint, gout, wrist fracture. X-rays are noted above. Patient was given cephalexin 500 mg p.o. x1 here in department. Prescription written for cephalexin 500 mg twice daily x7 days. I did discuss strict return instructions and follow-up with orthopedics and your PCP if any worsening. Also instructed to return if any worsening. This text was generated using WorldState[employer] system, please disregard any oddities of phrase or misspellings. HPI General Mode of arrival: ambulatory. Date/Time Provider Initiated Documentation: 01/11/21 11:21. Limitations to Documentation: no limitations. Information obtained by: patient and RN notes reviewed. HPI Narrative: 70-year-old female presents to the ED with chief complaint of left wrist pain, swelling, erythema which began with pain Friday morning noticed swelling Friday. She does report that a Chihuahua dog jumped on her wrist on Friday night. She does have flexion of her DIP PIPs. There is some warmth. Radial pulses intact, cap refill less than 2 cm. She did report to me taking oxycodone 5 mg prior to arrival which did little to nothing to help her pain. Has not taken any Tylenol today. Did take tramadol at 5:00 this morning. Denies any proximal injuries no elbow tenderness no shoulder tenderness denies any chills or fever no systemic symptoms. Denies drugs, denies alcohol. Has a past medical history of pulmonary fibrosis, chronic back pain, TIA. Related Data Home Medications Medication Instructions Recorded Confirmed ipratropium-albuterol 3 ml UPD Q4H PRN PRN #180 ml 12/25/18 01/11/21 mycophenolate mofetil 1,000 mg PO BID 12/14/19 01/11/21 nintedanib 150 mg PO BID 12/14/19 01/11/21 albuterol sulfate 2 puff INHALATION Q4H PRN PRN 11/24/20 01/11/21 aspirin 81 mg PO DAILY #30 tab 11/24/20 01/11/21 atorvastatin 40 mg PO DAILY #20 tab 11/24/20 01/11/21 benzonatate 100 mg PO TID 11/24/20 01/11/21 fluticasone propionate 2 spray INTRANASAL DAILY 11/24/20 01/11/21 megestrol 5 ml PO DAILY 11/24/20 01/11/21 oxycodone 5 mg PO HS 11/24/20 01/11/21 tramadol 50 mg PO 6XD PRN 11/24/20 01/11/21 cephalexin 500 mg PO BID 7 Days #14 cap 01/11/21 cyanocobalamin (vitamin B-12) 1,000 mcg PO DAILY 01/11/21 01/11/21 [Vitamin B-12] Previous Rx's Medication Instructions Recorded ipratropium-albuterol 3 ml UPD Q4H PRN PRN #180 ml 12/25/18 aspirin 81 mg PO DAILY #30 tab 11/24/20 atorvastatin 40 mg PO DAILY #20 tab 11/24/20 cephalexin 500 mg PO BID 7 Days #14 cap 01/11/21 Allergies Allergy/AdvReac Type Severity Reaction Status Date / Time Sulfa (Sulfonamide Allergy Severe throat Unverified 01/11/21 11:11 Antibiotics) swelling/can't breath levofloxacin Allergy Intermediate Other (See Unverified 01/11/21 11:11 Comment) General Stated Complaint: Orthopedic JAMIE: 4 Review of Systems All systems reviewed & are unremarkable except as noted in HPI and below Musculoskeletal Musculoskeletal: Reports as per HPI, Denies deformity, Reports arthralgias (Left dorsal wrist), Reports joint swelling, Reports limited range of motion and Denies numbness Neurologic Neurologic: Denies numbness [facility] Medical History (Updated 01/11/21 @ 12:17 by Olivia Odonnell) Chronic back pain Pulmonary fibrosis Patient had previous work-up by Dr. Ferrara in [facility] in March 2018. Patient reports that her PFTs did not show underlying COPD, patient has a follow-up with Dr. 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 Appears stated age. Normal body habitus. Head: Normocephalic, no trauma. Eyes: Pupils PERRLA, Red reflex noted, EOM's intact. Eyelids symmetrical without lesions, discharge, or swelling. ENT: Bilateral TM's WNL, External ear normal to inspection, no mastoid TTP, swelling, or erythema, Nasal turbinates WNL, no nasal discharge. Normal dentition, Posterior pharynx WNL, no exudate. Chest: RRR, Normal S1, S2, distal pulses intact. Resp: Lungs clear to auscultation bilaterally, no wheezes, rales, or rhonchi. Musculoskeletal: Left wrist tenderness does have flexion and extension to the DIP PIP joints, dorsal erythema swelling tenderness measuring approximately 5 cm x 5 cm. Clubbing of her fingers is noted bilaterally. Skin: Dorsal left hand erythemic warm to touch. Capillary refill less than 2 sec. Neurologic: Cranial nerves II-XII intact. Alert and oriented x 3. DTR's intact. Hematologic/Lymphatic: No ecchymosis, no lymphadenopathy. Course Vital Signs Vital signs: Vital Signs Temperature 36.2 C L 01/11/21 11:09 Pulse 96 H 01/11/21 11:09 Respiratory Rate 22 01/11/21 11:09 Blood Pressure 165/98 H 01/11/21 11:09 Pulse Oximetry 94 01/11/21 11:09 Temperature 36.2 C L 01/11/21 11:09 Temperature Source Skin 01/11/21 11:09 Pulse 96 H 01/11/21 11:09 Respiratory Rate 22 01/11/21 11:09 Respiratory Effort Non-Labored 01/11/21 11:16 Blood Pressure 165/98 H 01/11/21 11:09 Blood Pressure Position Sitting 01/11/21 11:09 Pulse Oximetry 94 01/11/21 11:09 Oxygen Delivery Method Room Air 01/11/21 11:09 Oxygen Flow Rate 0 01/11/21 11:09 Pain Level 10 01/11/21 11:09
[2021-01-11] MEDS: Acetaminophen 500 MG TAB PO (12:23)
[2021-01-11] MEDS: Cephalexin 500 MG CAP PO (12:24)
== END 2021-01-11 12:32 | disposition home or self-care (01) ==
PROVIDERS: Emergency Provider Registered Nurse Emergency; PCP Physician Assistant Medical
DX: L03.114 Cellulitis of left upper limb (principal); M19.032 Primary osteoarthritis, left wrist
CPT/HCPCS: 29125; 99283; 73110

== ENCOUNTER → 2021-01-31 11:00 | Outpatient (BNVA) | payer MEDICARE, MEDICAID, SELFPAY | PROVIDERS: PCP Physician Assistant Medical; Referring Provider Physician Assistant Medical; Visit Provider Psychiatry & Neurology Neurology | DX: I63.9 Cerebral infarction, unspecified (principal); R73.03 Prediabetes; G25.0 Essential tremor | CPT/HCPCS: 99215 ==

== ENCOUNTER 2021-02-01 11:31 | Outpatient (REF) | payer MEDICARE, MEDICAID, SELFPAY ==
[2021-02-02 00:33] LABS: Campylobacter PCR Negative (Negative); Salmonella PCR Negative (Negative); Shiga Toxin PCR Negative (Negative); Shigella/Enteroinvasive Ecoli Negative (Negative)
[2021-02-02 21:24] LABS: Calprotectin 144.5 mcg/g
== END 2021-02-01 11:32 | disposition home or self-care (01) ==
LOC: LBN 11:31
PROVIDERS: PCP Physician Assistant Medical; Visit Provider Family Medicine
DX: K52.9 Noninfective gastroenteritis and colitis, unspecified (principal); D64.9 Anemia, unspecified; R63.4 Abnormal weight loss
CPT/HCPCS: 87329; 87493; 87505; 83630; 83993; 87177

== ENCOUNTER 2021-03-01 16:51 | Emergency (ER) | payer MEDICARE, MEDICAID, SELFPAY ==
[2021-03-01 16:56] VITALS: BP 151/86; PULSE 96; RESP 20; TEMP 36.4; O2SAT 95
--- NOTE | 2021-03-01 17:00 | DI.RAD_ITS ---
Exam(s) XR FEMUR LT EXAM: XR FEMUR LT CLINICAL HISTORY: Fall, Left hip pain. TECHNIQUE: 2D digital imaging was performed. COMPARISON: None. FINDINGS: BONES: No acute fracture is present. No bony destructive lesion is seen. JOINTS: No dislocation present. Joint space is well maintained. Chondrocalcinosis noted in the meni sci. SOFT TISSUE: Normal. IMPRESSION: No acute abnormality. DATA REPOSITORY: RADIATION DOSE DELIVERED:
--- NOTE | 2021-03-01 17:00 | DI.RAD_ITS ---
Exam(s) XR PELVIS AP EXAM: XR PELVIS AP CLINICAL HISTORY: Fall, Left hip pain. TECHNIQUE: 2D digital imaging was performed. COMPARISON: No exams were available for comparison FINDINGS: BONES: No acute fracture is present. No bony destructive lesion is seen. JOINTS: No dislocation present. No joint space narrowing is present. SOFT TISSUE: Normal. Surgical clips and suture material in the pelvis. IMPRESSION: Unremarkable radiographs of the pelvis. DATA REPOSITORY: RADIATION DOSE DELIVERED:
--- NOTE | 2021-03-01 17:13 | W.ED.GENAD ---
Discharge Plan Disposition Patient Disposition: HOME Condition: Stable Discharge Details Clinical Impression: Hip pain, Fall Primary Care Provider: Chloe Barrett ED Provider: Olivia Odonnell Home Meds and New Rx's Prescriptions: No Action atorvastatin 10 mg tablet 10 mg PO QHS Qty: 90 RF: 3 mycophenolate mofetil 500 mg Tablet 1,000 mg PO BID RF: 0 nintedanib 100 mg Capsule 150 mg PO BID RF: 0 tramadol 50 mg tablet 50 mg PO 6XD PRNRF: 0 benzonatate 100 mg capsule 100 mg PO TID RF: 0 albuterol sulfate 90 mcg/actuation HFA aerosol inhaler 2 puff inhalation Q4H PRN PRNRF: 0 oxycodone 5 mg tablet 5 mg PO HS RF: 0 megestrol 625 mg/5 mL (125 mg/mL) suspension 5 ml PO DAILY RF: 0 fluticasone propionate 50 mcg/actuation spray,suspension 2 spray INTRANASAL DAILY RF: 0 aspirin 81 mg Tablet,Delayed Release (Dr/Ec) 81 mg PO DAILY Qty: 30 RF: 0 losartan-hydrochlorothiazide 50-12.5 mg tablet 1 tab PO DAILY RF: 0 ipratropium-albuterol 0.5 mg-3 mg(2.5 mg base)/3 mL Solution For Nebulization 3 ml UPD Q4H PRN PRN (Reason: shortness of breath) Qty: 180 RF: 0 cyanocobalamin (vitamin B-12) [Vitamin B-12] 1,000 mcg Tablet 1,000 mcg PO DAILY RF: 0 Discharge Instructions Instructions: Fall Prevention for Older Adults (ED), Hip Pain (ED) Additional Instructions: Alternate ice and heat, please take Tylenol or Ibuprofen with food every 4-6 hours as needed for pain and swelling. Follow up with primary care provider in 3-5 days. Return to ED sooner if any worsening or concerns. Increase oral fluids. X-rays today are within normal limits no acute fracture or malalignment. Referrals: Chloe Barrett [Primary Care Provider] - Medical Decision Making 70-year-old female presents the ER chief complaint of left hip pain status post mechanical fall on Friday. Patient states that tramadol 6 am this morning. She normally takes on a daily basis. Denies any other complaints at this time. Is ambulatory with some difficulty. Imaging protocol: XR pelvis. Views: 1 or 2 view. Total images: 1 COMPARISON: No relevant prior studies available. FINDINGS: Bones/joints: No acute fracture or malalignment. Soft tissues: Unremarkable. IMPRESSION: No acute fracture or malalignment. Imaging protocol: XR Left femur. Views: 2 views. Total images: 4 COMPARISON: No relevant prior studies available. FINDINGS: Bones/joints: No acute fracture or malalignment. Soft tissues: Unremarkable. IMPRESSION: No acute fracture or malalignment. Thank you for allowing us to participate in the care of your patient. Dictated and Authenticated by: Nicolasa Lee MD Patient reevaluation: Reports improvement after medication discussed x-ray results . Verbalized understanding. We will give patient tramadol discussed follow-up with PCP for any further pain management. Patient remained hemodynamically stable throughout stay. This text was generated using [employer] Media[employer] system, please disregard any oddities of phrase or misspellings. HPI General Mode of arrival: ambulatory. Date/Time Provider Initiated Documentation: 03/01/21 16:53. Limitations to Documentation: no limitations. Information obtained by: patient, RN notes reviewed and old records reviewed. HPI Narrative: 70-year-old female with a history of chronic back pain, fibromyalgia, hypertension, osteoarthritis and pulmonary fibrosis presents to the ER with chief complaint left hip pain status post mechanical fall on Friday x2. Patient reports that she slipped and fell backwards at her doctor's office denies hitting her head no loss consciousness denies neck or back pain. She went tripped and fell back into a chair in the same area. She normally takes tramadol on a regular basis for chronic pain she last tablet at 6 AM this morning. Has not taken anything since. She is ambulatory with difficulty and pain. She denies any dysuria or trouble urinating no other complaints at this time. Related Data Home Medications Medication Instructions Recorded Confirmed ipratropium-albuterol 3 ml UPD Q4H PRN PRN #180 ml 12/25/18 03/01/21 mycophenolate mofetil 1,000 mg PO BID 12/14/19 03/01/21 nintedanib 150 mg PO BID 12/14/19 03/01/21 albuterol sulfate 2 puff INHALATION Q4H PRN PRN 11/24/20 03/01/21 aspirin 81 mg PO DAILY #30 tab 11/24/20 03/01/21 benzonatate 100 mg PO TID 11/24/20 03/01/21 fluticasone propionate 2 spray INTRANASAL DAILY 11/24/20 03/01/21 megestrol 5 ml PO DAILY 11/24/20 03/01/21 oxycodone 5 mg PO HS 11/24/20 03/01/21 tramadol 50 mg PO 6XD PRN 11/24/20 03/01/21 cyanocobalamin (vitamin B-12) 1,000 mcg PO DAILY 01/11/21 03/01/21 [Vitamin B-12] atorvastatin 10 mg tablet 10 mg PO QHS #90 tab 01/31/21 03/01/21 losartan-hydrochlorothiazide 1 tab PO DAILY 03/01/21 03/01/21 Previous Rx's Medication Instructions Recorded ipratropium-albuterol 3 ml UPD Q4H PRN PRN #180 ml 12/25/18 aspirin 81 mg PO DAILY #30 tab 11/24/20 atorvastatin 10 mg tablet 10 mg PO QHS #90 tab 01/31/21 Allergies Allergy/AdvReac Type Severity Reaction Status Date / Time Sulfa (Sulfonamide Allergy Severe throat Unverified 03/01/21 17:02 Antibiotics) swelling/can't breath levofloxacin Allergy Intermediate Other (See Unverified 03/01/21 17:02 Comment) General Stated Complaint: Orthopedic JAMIE: 3 Review of Systems All systems reviewed & are unremarkable except as noted in HPI and below Musculoskeletal Musculoskeletal: Denies deformity and Reports arthralgias (Left hip pain, s/p Mechanical fall) [facility] Medical History Chronic back pain Essential tremor Fibromyalgia Hypertension Osteoarthritis Pre-diabetes Pulmonary fibrosis Patient had previous work-up by Dr. Ferrara in [facility] in March 2018. Patient reports that her PFTs did not show underlying COPD, patient has a follow-up with Dr. 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 Appears stated age. Normal body habitus. Head: Normocephalic, no trauma. Eyes: Pupils PERRLA, Red reflex noted, EOM's intact. Eyelids symmetrical without lesions, discharge, or swelling. ENT: Bilateral TM's WNL, External ear normal to inspection, no mastoid TTP, swelling, or erythema, Nasal turbinates WNL, no nasal discharge. Normal dentition, Posterior pharynx WNL, no exudate. Chest: RRR, Normal S1, S2, distal pulses intact. Resp: Lungs clear to auscultation bilaterally, no wheezes, rales, or rhonchi. Musculoskeletal: See diagram below. Skin: No suspicious rashes or lesions. Capillary refill less than 2 sec. Neurologic: Cranial nerves II-XII intact. Alert and oriented x 3. DTR's intact. Hematologic/Lymphatic: No ecchymosis, no lymphadenopathy. Back/Spine/Pelvis Back: no CVA tenderness Cervical Spine: normal cervical lordosis and cervical ROM normal Thoracic/Lumbar Spine: thoracic and lumbar spine normal to inspection Pelvis: no pain with anterior-posterior compression, buttock tenderness (No obvious deformity no shortening or rotation extremity ) on the left and no unilateral elevation of iliac crest Back/spine/pelvis image: 1. Tenderness with palpation, no obvious deformity no shortening or rotation to the extremity distal pulses intact. Course Vital Signs Vital signs: Vital Signs Temperature 36.4 C L 03/01/21 16:56 Pulse 96 H 03/01/21 16:56 Respiratory Rate 20 03/01/21 16:56 Blood Pressure 151/86 H 03/01/21 16:56 Pulse Oximetry 95 03/01/21 16:56 Temperature 36.4 C L 03/01/21 16:56 Temperature Source Temporal Artery Scan 03/01/21 16:56 Pulse 96 H 03/01/21 16:56 Respiratory Rate 20 03/01/21 16:56 Respiratory Effort 03/01/21 17:01 Blood Pressure 151/86 H 03/01/21 16:56 Blood Pressure Position Supine 03/01/21 16:56 Pulse Oximetry 95 03/01/21 16:56 Oxygen Delivery Method Room Air 03/01/21 16:56 Oxygen Flow Rate 0 03/01/21 16:56 Pain Level 9 03/01/21 16:56 Lab/Test Results Lab/Test Results: Laboratory Tests Range/Units 03/01/21 03/01/21 03/01/21 16:55 16:55 19:55 WBC Cancelled RBC Cancelled Hgb Cancelled Hct Cancelled MCV Cancelled MCH Cancelled MCHC Cancelled RDW Cancelled Plt Count Cancelled MPV Cancelled Immature Gran % Cancelled Neutrophils % Cancelled Band Neutrophils % Cancelled Lymphocytes % Cancelled Atypical Lymphs % Cancelled Monocytes % Cancelled Eosinophils % Cancelled Basophils % Cancelled Metamyelocytes % Cancelled Myelocytes % Cancelled Promyelocytes % Cancelled Other Cells % Cancelled Nucleated RBC % Cancelled Absolute Neutrophils Cancelled Absolute Lymphocytes Cancelled Absolute Monocytes Cancelled Absolute Eosinophils Cancelled Absolute Basophils Cancelled RBC Morphology Cancelled Polychromasia Cancelled Hypochromasia Cancelled Poikilocytosis Cancelled Basophilic Stippling Cancelled Anisocytosis Cancelled Microcytosis Cancelled Macrocytosis Cancelled Spherocytes Cancelled Tear Drop Cells Cancelled Ovalocytes Cancelled Stomatocytes Cancelled [place] Bodies Cancelled [place] Cells/Echinocytes Cancelled Acanthocytes (Spur) Cancelled Schistocytes Cancelled Sodium Cancelled Potassium Cancelled Chloride Cancelled Carbon Dioxide Cancelled Anion Gap Cancelled BUN Cancelled Creatinine Cancelled Estimated GFR/1.73 m2 Cancelled Glucose Cancelled Calcium Cancelled Magnesium Cancelled Total Bilirubin Cancelled AST Cancelled ALT Cancelled Alkaline Phosphatase Cancelled Troponin I Cancelled Cancelled Total Protein Cancelled Albumin Cancelled
[2021-03-01] MEDS: traMADol 50 MG TAB PO (17:16)
--- NOTE | 2021-03-01 18:09 | DI.VRAD_ITS ---
PROCEDURE INFORMATION: Exam: XR Pelvis Exam date and time: 03/01/2021 5:13 PM Age: 70 years old Clinical indication: Injury or trauma; Fall; Blunt trauma (contusions or hematomas); Left; Hip TECHNIQUE: Imaging protocol: XR pelvis. Views: 1 or 2 view. Total images: 1 COMPARISON: No relevant prior studies available. FINDINGS: Bones/joints: No acute fracture or malalignment. Soft tissues: Unremarkable. IMPRESSION: No acute fracture or malalignment. Dictated and Authenticated by: Nicolasa Lee MD. Ordering:TOBY Baker MD
--- NOTE | 2021-03-01 18:10 | DI.VRAD_ITS ---
PROCEDURE INFORMATION: Exam: XR Left Femur Exam date and time: 03/01/2021 5:13 PM Age: 70 years old Clinical indication: Injury or trauma; Fall; Blunt trauma; Hip; Left TECHNIQUE: Imaging protocol: XR Left femur. Views: 2 views. Total images: 4 COMPARISON: No relevant prior studies available. FINDINGS: Bones/joints: No acute fracture or malalignment. Soft tissues: Unremarkable. IMPRESSION: No acute fracture or malalignment. Dictated and Authenticated by: Nicolasa Lee MD. Ordering:TOBY Baker MD
[2021-03-01] MEDS: Lidocaine 5% Patch 1 PATCH TP (18:39)
[2021-03-01 18:40] VITALS: BP 137/79; PULSE 89; RESP 16; TEMP 36.4; O2SAT 97
== END 2021-03-01 18:55 | disposition home or self-care (01) ==
PROVIDERS: Emergency Provider Registered Nurse Emergency; PCP Physician Assistant Medical
DX: M25.552 Pain in left hip (principal); W01.0XXA Fall on same level from slipping, tripping and stumbling without subsequent striking against object, initial encounter
CPT/HCPCS: 73552; 80053; 99284; 72170; 83735; 84484; 85025; 99283

== ENCOUNTER 2021-03-24 15:27 | Emergency (ER) | payer MEDICARE, MEDICAID, SELFPAY ==
[2021-03-24] VITALS (34 sets, daily range): BP systolic 96–135; BP diastolic 60–87; PULSE 72–94; RESP 12–28; TEMP 36.3; O2SAT 92–98
--- NOTE | 2021-03-24 15:15 | RT.EKG_ITS ---
APPROVED REPORT Exam: Resting ECG Reason for Exam: chest pain Patient Location: E HR:87 bpm ECG Measurements Heart Rate 87 AXIS [place] 150 P 58 QRSd 87 QRS -24 QT 346 T 80 QTc 416 Conclusion Sinus rhythm...normal P axis, V-rate 60- 99 Inferior infarct, old...Q >35mS, II III aVF. No STEMI. I have reviewed and interpreted ECG and agree with software generated interpretation.
--- NOTE | 2021-03-24 15:46 | W.ED.GENAD ---
Discharge Plan Discharge Details Chief Complaint: Chest Pain Primary Care Provider: Chloe Barrett ED Provider: Jovanna Mendiola Home Meds and New Rx's Prescriptions: No Action atorvastatin 10 mg tablet 10 mg PO QHS Qty: 90 RF: 3 mycophenolate mofetil 500 mg Tablet 1,000 mg PO BID RF: 0 nintedanib 100 mg Capsule 150 mg PO BID RF: 0 tramadol 50 mg tablet 50 mg PO 6XD PRNRF: 0 benzonatate 100 mg capsule 100 mg PO TID RF: 0 albuterol sulfate 90 mcg/actuation HFA aerosol inhaler 2 puff inhalation Q4H PRN PRNRF: 0 oxycodone 5 mg tablet 5 mg PO HS RF: 0 megestrol 625 mg/5 mL (125 mg/mL) suspension 5 ml PO DAILY RF: 0 fluticasone propionate 50 mcg/actuation spray,suspension 2 spray INTRANASAL DAILY RF: 0 aspirin 81 mg Tablet,Delayed Release (Dr/Ec) 81 mg PO DAILY Qty: 30 RF: 0 losartan-hydrochlorothiazide 50-12.5 mg tablet 1 tab PO DAILY RF: 0 ipratropium-albuterol 0.5 mg-3 mg(2.5 mg base)/3 mL Solution For Nebulization 3 ml UPD Q4H PRN PRN (Reason: shortness of breath) Qty: 180 RF: 0 cyanocobalamin (vitamin B-12) [Vitamin B-12] 1,000 mcg Tablet 1,000 mcg PO DAILY RF: 0 Medical Decision Making 70-year-old female with a history of hypertension, pulmonary fibrosis, chronic back pain, fibromyalgia, gastric bypass and cholecystectomy presents for constant squeezing bilateral lower pain that started at 10 AM while sitting at home. Pain worse with movement. EKG notes a rate of 87, sinus, no STEMI and nondiagnostic. Her lower chest pain is reproducible with palpation and movement. Her lungs are clear. Her vitals are within normal limits. Differential diagnosis includes chest wall strain, pleuritic chest pain, PE, ACS. History and presentation does not appear consistent with dissection. Will obtain screening labs, CT chest and give Decadron, Toradol, Valium and reassess. Medical Records Medical records reviewed: Yes I reviewed the patient's medical records. ECG Data Attestation: I personally reviewed and interpreted this ECG (s) as follows: Interpretation: Rate of 87, sinus, no STEMI, VA 150. QTc 416 HPI General Mode of arrival: ambulatory. Date/Time Provider Initiated Documentation: 03/24/21 15:37. Limitations to Documentation: no limitations. Information obtained by: patient. HPI Narrative: Patient is a 7-year-old female with a history of pulmonary fibrosis, fibromyalgia, hypertension, chronic back pain, gastric bypass, cholecystectomy presents for constant squeezing bilateral lower chest pain that started at 10 AM while sitting at home. Patient states the pain is worse with movement. She states she was walking in the store prior to arrival and had worsening pain and asked her daughter to bring her here. She does admit to intermittent shortness of breath, nausea and dizziness. She states she has a chronic cough but denies any sputum production. She states she has vomited occasionally which is mainly been white foam. She denies any known fever. Related Data Home Medications Medication Instructions Recorded Confirmed ipratropium-albuterol 3 ml UPD Q4H PRN PRN #180 ml 12/25/18 03/24/21 mycophenolate mofetil 1,000 mg PO BID 12/14/19 03/24/21 nintedanib 150 mg PO BID 12/14/19 03/24/21 albuterol sulfate 2 puff INHALATION Q4H PRN PRN 11/24/20 03/24/21 aspirin 81 mg PO DAILY #30 tab 11/24/20 03/24/21 benzonatate 100 mg PO TID 11/24/20 03/24/21 fluticasone propionate 2 spray INTRANASAL DAILY 11/24/20 03/24/21 megestrol 5 ml PO DAILY 11/24/20 03/24/21 oxycodone 5 mg PO HS 11/24/20 03/24/21 tramadol 50 mg PO 6XD PRN 11/24/20 03/24/21 cyanocobalamin (vitamin B-12) 1,000 mcg PO DAILY 01/11/21 03/24/21 [Vitamin B-12] atorvastatin 10 mg tablet 10 mg PO QHS #90 tab 01/31/21 03/24/21 losartan-hydrochlorothiazide 1 tab PO DAILY 03/01/21 03/24/21 Previous Rx's Medication Instructions Recorded ipratropium-albuterol 3 ml UPD Q4H PRN PRN #180 ml 12/25/18 aspirin 81 mg PO DAILY #30 tab 11/24/20 atorvastatin 10 mg tablet 10 mg PO QHS #90 tab 01/31/21 Allergies Allergy/AdvReac Type Severity Reaction Status Date / Time Sulfa (Sulfonamide Allergy Severe throat Unverified 03/24/21 15:36 Antibiotics) swelling/can't breath levofloxacin Allergy Intermediate Other (See Unverified 03/24/21 15:36 Comment) General Stated Complaint: Chest Pain JAMIE: 2 Review of Systems All systems reviewed & are unremarkable except as noted in HPI and below Constitutional Constitutional: Reports as per HPI, Denies chills and Denies fever(s) Eyes Eyes: Denies blurry vision ENT Ears, Nose, Mouth, and Throat: Denies dizziness, Denies sore throat and Denies throat swelling Cardiovascular Cardiovascular: Reports chest pain and Reports dyspnea Respiratory Respiratory: Denies cough and Reports dyspnea Gastrointestinal Gastrointestinal: Denies abdominal pain, Denies diarrhea and Denies vomiting Genitourinary Genitourinary: Denies hematuria and Denies dysuria Musculoskeletal Musculoskeletal: Denies back pain and Denies numbness Integumentary/Breasts Skin/Breast: Denies lesions and Denies rash Neurologic Neurologic: Denies dizziness, Denies localized weakness and Denies numbness Allergic/Immunologic Allergic/Immunologic: Denies throat swelling [facility] Medical History Chronic back pain Essential tremor Fibromyalgia Hypertension Osteoarthritis Pre-diabetes Pulmonary fibrosis Patient had previous work-up by Dr. Ferrara in [facility] in March 2018. Patient reports that her PFTs did not show underlying COPD, patient has a follow-up with Dr. Giron in February 16, 2019 Stroke Surgical History Hx of ultrasound guided needle biopsy of lung S/P cholecystectomy S/P gastric bypass S/P hernia repair S/P hysterectomy Family History Mother Stroke Maternal Grandmother Stroke Maternal Uncle Stroke Social History Smoking/Tobacco Use Status: Never Second Hand Exposure: Yes (Secondary to her parents as well as ) Smoking risk assessment performed?: Yes Alcohol Intake: never Drug use: Never Substance use type: does not use Household members: family and children Housing: other Details: moble home Number of Children: 5 number of grandchildren: 8 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 [employer] Pets and animals: Yes Pets and animals: dog(s) Current gender identity: female What is your relationship status?: Panel score (0-1 are the most socially isolated patients): 0 What type of physical activity do you participate in: walking Frequency: daily Seatbelt use: always Do you feel safe at home: Yes Do you feel safe in your relationship?: Yes History History 4 Para Hx # Term Pregnancies 4 Multiple births Hx # Pregnancies Ectopic pregnancies AB induced Hx Number of Living Children AB spontaneous Exam Const General: cooperative and no acute distress HENMT Head: normal to inspection Face and sinus: normal facial exam Eyes General: appearance normal, both eyes and all related structures EOM: EOM intact bilaterally Neck Neck: normal visual inspection and No submandibular swelling Lymphatic: no lymphadenopathy noted Chest Chest: normal inspection of the chest Chest/axillae images: 1. Tenderness to palpation across bilateral inferior chest. There is no crepitus, erythema, ecchymosis, rash or lesions. Resp Effort & Inspection: normal respiratory effort and able to speak in complete sentences Auscultation: clear to auscultation bilaterally Cardio Rate: regular rate Rhythm: regular rhythm GI Inspection: normal to inspection Palpation: soft, not firm, not rigid and nontender Auscultation: normal bowel sounds Skin General skin exam: no rashes or lesions noted Neuro General: patient alert, patient awake and patient oriented x3 Cognition: normal cognition Speech: speech normal Motor: muscle tone normal throughout Sensory Exam: no sensory deficits noted Extrem General: normal to inspection, full ROM, capillary refill normal, no calf tenderness bilaterally and no edema Psych Appearance: grossly normal Mental Status: mental status grossly normal Speech and Movement: speech and movement normal Affect: normal affect Course Vital Signs Vital signs: Vital Signs Temperature 97.3 F L 03/24/21 15:32 Pulse 87 03/24/21 15:32 Respiratory Rate 19 03/24/21 15:32 Blood Pressure 126/72 03/24/21 15:32 Pulse Oximetry 97 03/24/21 15:32 Temperature 97.3 F L 03/24/21 15:32 Temperature Source Temporal Artery Scan 03/24/21 15:32 Pulse 87 03/24/21 15:32 Respiratory Rate 19 03/24/21 15:32 Respiratory Effort 03/24/21 15:35 Blood Pressure 126/72 03/24/21 15:32 Blood Pressure Position Supine 03/24/21 15:32 Pulse Oximetry 97 03/24/21 15:32 Oxygen Delivery Method Room Air 03/24/21 15:32 Oxygen Flow Rate 0 03/24/21 15:32 Pain Level 8 03/24/21 15:32
[2021-03-24 16:01] LABS: Abs Immature Grans 0.03 10^3/uL (0.0-0.06); Absolute Basophil Count 0.04 10^3/uL (0.0-0.2); Absolute Eosinophil Count 0.26 10^3/uL (0.0-0.7); Absolute Lymphocyte Count 2.02 10^3/uL (1.2-3.4); Absolute Neutrophil Count 5.68 10^3/uL (1.2-6.7); Basophils % 0.5; HGB 14.3 g/dL (11.2-15.7); Immature Grans % 0.4; Lymphocytes % 23.7; MCHC 31.8 % (32.0-36.0); MCV 97.6 fL (80-95); Monocytes % 5.9; Neutrophils % 66.5; Nucleated RBC 0 %; Platelet Count 332 10^3/uL (130-400); RBC 4.61 10^6/uL (3.93-5.22); RDW 14.5 % (11.7-14.6); RDW-SD 52.4 fL; WBC 8.53 10^3/uL (4.4-10.8)
--- NOTE | 2021-03-24 16:15 | DI.CT_ITS ---
Exam(s) CT CHEST PE CTA EXAM: CT CHEST PE CTA CLINICAL HISTORY: squeezing chest pain, r/o PE. TECHNIQUE: Imaging Protocol: Axial CT angiography was performed with multi-slice acquisition and mu lti-planar and/or 3D reconstructions. CONTRAST MATERIAL: Intravenous: Omnipaque 350 Contrast volume:structured data in ml COMPARISON: CT CT CHEST PE CTA from 08/20/[address] CHEST PE CTA from 08/20/[address] BRAIN NECK CTA from 11/24/2020 FINDINGS: CT angiography of the chest was performed with intravenous infusion of 100 cc of Omnipaque 350. There are prominent predominantly peripheral changes of pulmonary reticular radiodensities with some honeycombing, particularly in the lung bases. There is moderate bronchiectasis. Findings appear sneha ssly unchanged from prior examination of August 20, 2020.. No pleural effusion. Tracheobronchial jack e appears intact. No evidence of pulmonary embolic disease. Thoracic aorta is of normal diameter, no thoracic aortic an eurysm or dissection, major branch vessels appear intact. No mediastinal or hilar adenopathy. Images obtained through the upper abdomen show a nonobstructing left renal stone. Spleen grossly unr emarkable. Multiple vascular clips noted in the left upper quadrant. Liver pancreas and right kidne y grossly unremarkable as visualized. IMPRESSION: Stable pulmonary fibrosis. No evidence of pulmonary embolic disease. RADIATION DOSE DELIVERED: 248.43mGy.cm Total DLP 248.43mGy.cm Total DLP 6.78mGy CTDIvol DATA REPOSITORY: All CT scans at this facility are submitted to the National Radiology Data Registry (NRDR) Dose Index Registry (DIR) with the [employer] ([employer]). RADIATION OPTIMIZATION: All CT scans at this facility use at least one of these dose optimization te chniques: automated exposure control; mA and/or kV adjustment per patient size (includes targeted exa ms where dose is matched to clinical indication); or iterative reconstruction.
[2021-03-24] MEDS: Famotidine 20 MG TAB PO (16:24)
[2021-03-24] MEDS: Dexamethasone 10 MG/ML VIAL IVP (16:24)
[2021-03-24] MEDS: diazePAM 5 MG TAB PO (16:24)
[2021-03-24] MEDS: Ketorolac 30 MG/ML VIAL IVP (16:24)
[2021-03-24 16:42] LABS: Calcium 9.2 mg/dL (8.5-10.1); Glucose 106 mg/dL (74-106)
[2021-03-24 16:43] LABS: Anion Gap 14.1 mmol/L (3-11); BUN 28 mg/dL (7-18); CO2 21.9 mmol/L (21.0-32.0); CREATININE 1.5 mg/dL (0.55-1.02); Chloride 104 mmol/L (98-107); Estimated GFR 34.33 (mL/min/1.73m2); Magnesium 2.2 mg/dL (1.8-2.4); Potassium 3.1 mmol/L (3.5-5.1); Sodium 140 mmol/L (136-145)
[2021-03-24 16:44] LABS: ALT 30 U/L (14-59); AST 45 U/L (15-37); Albumin 3.8 g/dL (3.4-5.0); Alkaline Phosphatase 107 U/L (46-116); Bilirubin, Total 0.4 mg/dL (0.2-1.0); Total Protein 8.1 g/dL (6.4-8.2)
[2021-03-24 16:45] LABS: Troponin I < 0.05 ng/mL (<0.06)
[2021-03-24 16:53] LABS: Lipase 44 U/L (73-393)
[2021-03-24] MEDS: Normal Saline 500 ML IV (17:05)
[2021-03-24] MEDS: Potassium Chloride 20 MEQ TABCR 40 MEQ PO (17:05)
[2021-03-24] MEDS: Omnipaque 350 MG/ML 100 ML BTL 55 ML IJ (17:14)
[2021-03-24] MEDS: Normal Saline - Diluent 50 ML VIAL IV (17:15)
--- NOTE | 2021-03-24 18:29 | DI.VRAD_ITS ---
PROCEDURE INFORMATION: Exam: CTA Chest With Contrast Exam date and time: 03/24/2021 4:30 PM Age: 70 years old Clinical indication: Pain; Chest pressure; Prior surgery TECHNIQUE: Imaging protocol: Computed tomographic angiography of the chest with contrast. 3D rendering (Not supervised by radiologist): MIP and/or 3D reconstructed images were created by the technologist. COMPARISON: CT CHEST PE CTA 08/20/2020 8:23 PM FINDINGS: Pulmonary arteries: Normal. No pulmonary emboli. Aorta: Unremarkable. No aortic aneurysm. No aortic dissection. Lungs: Bilateral [id number] bronchiectasis throughout the lungs. Diffuse interstitial thickening throughout the lungs with evidence of honeycombing within the posterior lower lobes, compatible with pulmonary fibrosis. Interstitial pulmonary thickening appears worsened within the lower lobes which raises suspicion for superimposed infectious process versus pulmonary edema. Stable masslike consolidation within the subpleural posterior right upper lobe. Pleural spaces: Unremarkable. No pneumothorax. No pleural effusion. Heart: Unremarkable. No cardiomegaly. No pericardial effusion. Lymph nodes: Unremarkable. No enlarged lymph nodes. Gallbladder and bile ducts: There has been a cholecystectomy. Bones/joints: Unremarkable. No acute fracture. Soft tissues: Unremarkable. IMPRESSION: 1. No evidence of pulmonary embolism. 2. Similar chronic pulmonary fibrosis. However, interstitial thickening within the lower lobes is more prominent which raises suspicion for a superimposed infectious process or pulmonary edema. Dictated and Authenticated by: Christopher Meade MD. Ordering:ISAAC Nugent MD
--- NOTE | 2021-03-24 18:30 | RT.EKG_ITS ---
APPROVED REPORT Exam: Resting ECG Reason for Exam: chest pain Patient Location: E HR:83 bpm ECG Measurements Heart Rate 83 AXIS DC 153 P 18 QRSd 93 QRS -20 QT 409 T 51 QTc 481 Conclusion Sinus rhythm...normal P axis, V-rate 60- 99. No STEMI. No change from previous. I have reviewed and interpreted ECG and agree with software generated interpretation.
[2021-03-24 19:24] LABS: NT-proBNP 313 pg/mL (<300)
[2021-03-24 19:39] LABS: Troponin I < 0.05 ng/mL (<0.06)
[2021-03-24] MEDS: LORazepam 0.5 MG TAB 2 MG PO (20:17)
== END 2021-03-24 20:25 | disposition home or self-care (01) ==
PROVIDERS: Emergency Provider Physician Assistant; PCP Physician Assistant Medical
DX: R07.89 Other chest pain (principal); R06.02 Shortness of breath; E87.6 Hypokalemia; Z63.8 Other specified problems related to primary support group
CPT/HCPCS: 36415; 71275; 80053; 83690; 93005; 96361; 96374; 96375; 99285; 81003; 83735; 83880; 84484; 85025; 93010; 99284; J1100; J1885; J3490

== ENCOUNTER 2021-05-21 12:18 | Emergency (ER) | payer MEDICARE, MEDICAID, SELFPAY ==
[2021-05-21 12:44] VITALS: BP 151/80; PULSE 84; RESP 18; TEMP 36.4; O2SAT 94
--- NOTE | 2021-05-21 13:00 | RT.EKG_ITS ---
APPROVED REPORT Exam: Resting ECG Reason for Exam: SOB Patient Location: E HR:76 bpm ECG Measurements Heart Rate 76 AXIS [place] 156 P 54 QRSd 76 QRS -20 QT 375 T 67 QTc 422 Conclusion Sinus rhythm...normal P axis, V-rate 60- 99 Inferior infarct, old...Q >35mS, II III aVF sinus rhythm at 76, normal axis, no STEMI, nondiagnostic EKG
--- NOTE | 2021-05-21 13:00 | DI.RAD_ITS ---
Exam(s) XR PORTABLE CHEST AP EXAM: XR PORTABLE CHEST AP CLINICAL HISTORY: SOB TECHNIQUE: 2D digital imaging was performed. COMPARISON: CR,XR XR CHEST 2V PA LATERAL from 08/20/2020 CR,XR XR CHEST 2V PA LATERAL from 08/20/[address] CHEST PE CTA from 03/24/2021 FINDINGS: LUNGS: Severe pulmonary fibrosis. Low lung volumes. No infiltrate. No pleural abnormality seen. HEART: Normal. MEDIASTINUM: Normal. BONES: Unremarkable. Left upper quadrant surgical clips. IMPRESSION: Severe pulmonary fibrosis. No acute pulmonary findings. DATA REPOSITORY: RADIATION DOSE DELIVERED:
--- NOTE | 2021-05-21 13:10 | ED.GENADUL_ITS ---
Discharge Plan Disposition Patient Disposition: HOME Condition: Stable Discharge Details Clinical Impression: SOB (shortness of breath), Pulmonary fibrosis Primary Care Provider: Chloe Barrett ED Provider: Tanya Alegre Home Meds and New Rx's Prescriptions: Continued atorvastatin 10 mg tablet 10 mg PO QHS Qty: 90 RF: 3 mycophenolate mofetil 500 mg Tablet 1,000 mg PO BID RF: 0 nintedanib 100 mg Capsule 150 mg PO BID RF: 0 tramadol 50 mg tablet 50 mg PO 6XD PRNRF: 0 benzonatate 100 mg capsule 100 mg PO TID RF: 0 albuterol sulfate 90 mcg/actuation HFA aerosol inhaler 2 puff inhalation Q4H PRN PRNRF: 0 oxycodone 5 mg tablet 5 mg PO HS RF: 0 megestrol 625 mg/5 mL (125 mg/mL) suspension 5 ml PO DAILY RF: 0 fluticasone propionate 50 mcg/actuation spray,suspension 2 spray INTRANASAL DAILY RF: 0 aspirin 81 mg Tablet,Delayed Release (Dr/Ec) 81 mg PO DAILY Qty: 30 RF: 0 losartan-hydrochlorothiazide 50-12.5 mg tablet 1 tab PO DAILY RF: 0 ipratropium-albuterol 0.5 mg-3 mg(2.5 mg base)/3 mL Solution For Nebulization 3 ml UPD Q4H PRN PRN (Reason: shortness of breath) Qty: 180 RF: 0 cyanocobalamin (vitamin B-12) [Vitamin B-12] 1,000 mcg Tablet 1,000 mcg PO DAILY RF: 0 Discharge Instructions Instructions: Pulmonary Fibrosis (ED), Dyspnea (ED) Additional Instructions: Please return immediately to the emergency department if you develop any new or worsening symptoms, if your condition does not improve as expected, or if you become otherwise concerned. It is extremely important that you call soon as possible to make an appointment to be seen in follow-up for this visit by your primary care doctor, and also your music therapy teacher as scheduled. Referrals: Chloe Barrett [Primary Care Provider] - Discharge Data Discharge Date/Time-TO BE ENTERED AT DEPARTURE: 05/21/21 15:40 Medical Decision Making Ashley Da Silva is a 70-year-old woman with a history of pulmonary fibrosis, hypertension, stroke in the past presenting to emergency department with shortness of breath today that has been ongoing since she woke up. On exam patient is well nontoxic-appearing. She is mildly tachypneic but speaking in full sentences. Lungs are clear to auscultation. Benign cardiopulmonary exam. There is no lower extremity edema. Concern for shortness of breath secondary to pulmonary fibrosis, pulmonary embolism, Covid, bacterial pneumonia, other. Doubt acute coronary syndrome. Exam/history at this time sepsis, acute aortic dissection, acute emergent intra-abdominal process. Plan for IV placement, screening labs, DuoNeb, telemetry, chest x-ray, will monitor and reassess. EKG is nondiagnostic. Labs reviewed, white count 8.95, hemoglobin 12.7, potassium 3.0, D-dimer negative, troponin negative. Will replete with oral potassium. Chest x-ray negative. Patient reassessed, states that she feels back to baseline after 1 DuoNeb. States that she feels that shortness of breath has resolved completely and she requests to be discharged. Suspect shortness of breath secondary to pulmonary fibrosis. Patient has outpatient follow-up scheduled with her music therapy teacher. I had a lengthy discussion with Patient regarding return to emergency department precautions, home care, and importance of outpatient follow-up with PCP, pulmonology. Pt verbalizes understanding of the plan and is amenable. Patient discharged to home with clear plan for outpatient follow-up. All questions were answered. Disposition decision was made weighing the risks and benefits of hospitalization versus outpatient treatment, the risk for further decompensation, and the patient's wishes. Medical Records Medical records reviewed: Yes I reviewed the patient's medical records. Imaging Data Radiologic Study: Radiologist's impression: EXAM: XR PORTABLE CHEST AP CLINICAL HISTORY: SOB TECHNIQUE: 2D digital imaging was performed. COMPARISON: CR,XR XR CHEST 2V PA LATERAL from 08/20/2020 CR,XR XR CHEST 2V PA LATERAL from 08/20/[address] CHEST PE CTA from 03/24/2021 FINDINGS: LUNGS: Severe pulmonary fibrosis. Low lung volumes. No infiltrate. No pleural abnormality seen. HEART: Normal. MEDIASTINUM: Normal. BONES: Unremarkable. Left upper quadrant surgical clips. IMPRESSION: Severe pulmonary fibrosis. No acute pulmonary findings. Lab Data Lab results reviewed: Yes I reviewed the patient's lab results. Labs: Laboratory Tests Range/Units 05/21/21 05/21/21 05/21/21 13:25 13:30 13:30 WBC (4.4-10.8) 10^3/uL 8.95 RBC (3.93-5.22) 10^6/uL 4.09 Hgb (11.2-15.7) g/dL 12.7 Hct (36.0-46.0) % 40.7 MCV (80-95) fL 99.5 H MCH (27.0-33.0) pg 31.1 MCHC (32.0-36.0) % 31.2 L RDW (11.7-14.6) % 14.4 Plt Count (130-400) 10^3/uL 289 MPV (8.0-11.0) fL 8.8 Immature Gran % 0.3 Neutrophils % 75.1 Lymphocytes % 15.5 Monocytes % 7.8 Eosinophils % 0.9 Basophils % 0.4 Nucleated RBC % % 0 Absolute Neutrophils (1.2-6.7) 10^3/uL 6.71 H Absolute Lymphocytes (1.2-3.4) 10^3/uL 1.39 Absolute Monocytes (0.1-0.8) 10^3/uL 0.70 Absolute Eosinophils (0.0-0.7) 10^3/uL 0.08 Absolute Basophils (0.0-0.2) 10^3/uL 0.04 D-Dimer (<500) ng/mlFEU Sodium (136-145) mmol/L 141 Potassium (3.5-5.1) mmol/L 3.0 L Chloride (98-107) mmol/L 104 Carbon Dioxide (21.0-32.0) mmol/L 28.1 Anion Gap (3-11) mmol/L 8.9 BUN (7-18) mg/dL 17 Creatinine (0.55-1.02) mg/dL 1.1 H Estimated GFR/1.73 m2 (mL/min/1.73m2) 49.10 Glucose (74-106) mg/dL 102 Calcium (8.5-10.1) mg/dL 8.7 Magnesium (1.8-2.4) mg/dL 2.0 Total Bilirubin (0.2-1.0) mg/dL 0.5 AST (15-37) U/L 23 ALT (14-59) U/L 19 Alkaline Phosphatase (46-116) U/L 67 Troponin I (<0.06) ng/mL < 0.05 Total Protein (6.4-8.2) g/dL 6.8 Albumin (3.4-5.0) g/dL 3.1 L COVID-19 Source Nasal/Nares SARS-CoV-2 (PCR) (Negative) Negative Range/Units 05/21/21 05/21/21 13:30 16:03 WBC (4.4-10.8) 10^3/uL RBC (3.93-5.22) 10^6/uL Hgb (11.2-15.7) g/dL Hct (36.0-46.0) % MCV (80-95) fL MCH (27.0-33.0) pg MCHC (32.0-36.0) % RDW (11.7-14.6) % Plt Count (130-400) 10^3/uL MPV (8.0-11.0) fL Immature Gran % Neutrophils % Lymphocytes % Monocytes % Eosinophils % Basophils % Nucleated RBC % % Absolute Neutrophils (1.2-6.7) 10^3/uL Absolute Lymphocytes (1.2-3.4) 10^3/uL Absolute Monocytes (0.1-0.8) 10^3/uL Absolute Eosinophils (0.0-0.7) 10^3/uL Absolute Basophils (0.0-0.2) 10^3/uL D-Dimer (<500) ng/mlFEU 457 Sodium (136-145) mmol/L Potassium (3.5-5.1) mmol/L Chloride (98-107) mmol/L Carbon Dioxide (21.0-32.0) mmol/L Anion Gap (3-11) mmol/L BUN (7-18) mg/dL Creatinine (0.55-1.02) mg/dL Estimated GFR/1.73 m2 (mL/min/1.73m2) Glucose (74-106) mg/dL Calcium (8.5-10.1) mg/dL Magnesium (1.8-2.4) mg/dL Total Bilirubin (0.2-1.0) mg/dL AST (15-37) U/L ALT (14-59) U/L Alkaline Phosphatase (46-116) U/L Troponin I (<0.06) ng/mL Cancelled Total Protein (6.4-8.2) g/dL Albumin (3.4-5.0) g/dL COVID-19 Source SARS-CoV-2 (PCR) (Negative) ECG Data Attestation: I personally reviewed and interpreted this ECG (s) as follows: Interpretation: EKG shows sinus rhythm at 76, normal axis, no STEMI, no major change from prior 03/24/2021, nondiagnostic EKG HPI General Mode of arrival: ambulatory . Date/Time Provider Initiated Documentation: 05/21/21 13:02 . Limitations to Documentation: no limitations . Information obtained by: patient, RN notes reviewed and old records reviewed . HPI Narrative: Britney Da Silva is a 70 y/o woman with history of stroke, pulmonary fibrosis, hypertension presenting to the emergency department with chief complaint shortness of breath. Patient reports that she has a history of pulmonary fibrosis and intermittently has shortness of breath that she treat with albuterol inhaler. Patient reports that she has home O2 that she is supposed to use when she feels more short of breath, she uses 1 L. Patient reports that this morning she felt more short of breath than baseline for her, and came to the emergency department. She did not try her home oxygen today. Patient reports that she does have albuterol inhalers at home, and did try her albuterol inhaler but did not feel that it improved her symptoms. Patient reports that she feels otherwise well, denies any pain, fever, vomiting, numbness, weakness. Patient reports that she has baseline diarrhea from medication that she takes which is unchanged, she also reports baseline cough that is unchanged. Has been eating and drinking as usual. Related Data Home Medications Medication Instructions Recorded Confirmed ipratropium-albuterol 3 ml UPD Q4H PRN PRN #180 ml 12/25/18 05/22/21 mycophenolate mofetil 1,000 mg PO BID 12/14/19 05/22/21 nintedanib 150 mg PO BID 12/14/19 05/22/21 albuterol sulfate 2 puff INHALATION Q4H PRN PRN 11/24/20 05/22/21 aspirin 81 mg PO DAILY #30 tab 11/24/20 05/22/21 benzonatate 100 mg PO TID 11/24/20 05/22/21 fluticasone propionate 2 spray INTRANASAL DAILY 11/24/20 05/22/21 megestrol 5 ml PO DAILY 11/24/20 05/22/21 oxycodone 5 mg PO HS 11/24/20 05/22/21 tramadol 50 mg PO 6XD PRN 11/24/20 05/22/21 cyanocobalamin (vitamin B-12) 1,000 mcg PO DAILY 01/11/21 05/22/21 [Vitamin B-12] atorvastatin 10 mg tablet 10 mg PO QHS #90 tab 01/31/21 05/22/21 losartan-hydrochlorothiazide 1 tab PO DAILY 03/01/21 05/22/21 Previous Rx's Medication Instructions Recorded ipratropium-albuterol 3 ml UPD Q4H PRN PRN #180 ml 12/25/18 aspirin 81 mg PO DAILY #30 tab 11/24/20 atorvastatin 10 mg tablet 10 mg PO QHS #90 tab 01/31/21 Allergies Allergy/AdvReac Type Severity Reaction Status Date / Time Sulfa (Sulfonamide Allergy Severe throat Unverified 05/22/21 12:47 Antibiotics) swelling/can't breath levofloxacin Allergy Intermediate Other (See Unverified 05/22/21 12:47 Comment) General Stated Complaint: RespSymp JAMIE: 3 Review of Systems Narrative: Constitutional: denies fevers Eyes: denies eye pain ENT: denies ear pain, dental pain, sore throat Cardiovascular: denies chest pain, edema Respiratory: Reports shortness of breath, baseline cough unchanged GI: denies abdominal pain, vomiting, diarrhea : denies flank pain MSK: denies back pain, neck pain, arthralgias, myalgias Skin: denies rash Neuro: denies headaches, numbness, weakness PFSH Medical History Chronic back pain Essential tremor Fibromyalgia Hypertension Osteoarthritis Pre-diabetes Pulmonary fibrosis Patient had previous work-up by Dr. Ferrara in [facility] in March 2018. Patient reports that her PFTs did not show underlying COPD, patient has a follow-up with Dr. 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 Pets and animals: Yes Pets and animals: dog(s) Current gender identity: female What is your relationship status?: Panel score (0-1 are the most socially isolated patients): 0 What type of physical activity do you participate in: walking Frequency: daily Seatbelt use: always Do you feel safe at home: Yes Do you feel safe in your relationship?: Yes History History 4 Para Hx # Term Pregnancies 4 Multiple births Hx # Pregnancies Ectopic pregnancies AB induced Hx Number of Living Children AB spontaneous Exam Narrative Exam Narrative: Constitutional: well and [id number], pleasant, conv ersing normally HENT: head atraumatic/normocephalic/normal inspection, mucous membranes moist Eyes: conjunctiva normal, sclera normal, pupils 3mm b/l Neck: no stridor, normal ROM, trachea midline Chest: normal inspection Resp: Mild tachypnea, LCTAB Cardio: normal rate, normal rhythm, no murmur appreciated GI: abdomen soft, non-tender, non-distended Back: normal inspection, no rash Skin: warm, dry, normal color, no rash Neuro: alert, not altered, grossly non-focal, normal tone Ext: no edema, no posterior calf tenderness to palpation Psych: normal mood, normal affect, normal behavior Course Vital Signs Vital signs: Vital Signs Temperature 36.4 C L 05/21/21 12:44 Pulse 84 05/21/21 12:44 Respiratory Rate 18 05/21/21 12:44 Blood Pressure 151/80 H 05/21/21 12:44 Pulse Oximetry 94 05/21/21 12:44 Temperature 36.4 C L 05/21/21 12:44 Temperature Source Temporal Artery Scan 05/21/21 12:44 Pulse 84 05/21/21 12:44 Respiratory Rate 18 05/21/21 12:44 Respiratory Effort 05/21/21 12:50 Blood Pressure 151/80 H 05/21/21 12:44 Blood Pressure Position Sitting 05/21/21 12:44 Pulse Oximetry 94 05/21/21 12:44 Oxygen Delivery Method Room Air 05/21/21 12:44 Oxygen Flow Rate 0 05/21/21 12:44
[2021-05-21 13:25] LABS: Source Nasal/Nares
[2021-05-21 13:40] VITALS: PULSE 74; O2SAT 98
[2021-05-21 13:40] LABS: Abs Immature Grans 0.03 10^3/uL (0.0-0.06); Absolute Basophil Count 0.04 10^3/uL (0.0-0.2); Absolute Eosinophil Count 0.08 10^3/uL (0.0-0.7); Absolute Lymphocyte Count 1.39 10^3/uL (1.2-3.4); Absolute Neutrophil Count 6.71 10^3/uL (1.2-6.7); Basophils % 0.4; Eosinophils % 0.9; HCT 40.7 % (36.0-46.0); HGB 12.7 g/dL (11.2-15.7); Immature Grans % 0.3; Lymphocytes % 15.5; MCH 31.1 pg (27.0-33.0); MCHC 31.2 % (32.0-36.0); MCV 99.5 fL (80-95); MPV 8.8 fL (8.0-11.0); Monocytes % 7.8; Neutrophils % 75.1; Nucleated RBC 0 %; Platelet Count 289 10^3/uL (130-400); RBC 4.09 10^6/uL (3.93-5.22); RDW 14.4 % (11.7-14.6); RDW-SD 52.2 fL; WBC 8.95 10^3/uL (4.4-10.8)
[2021-05-21] MEDS: Albuterol/Ipratropium 3 ML UPD VIAL UPD (13:40)
[2021-05-21] MEDS: methylPREDNISolone SUCC 125 MG VIAL IVP (13:40)
[2021-05-21] MEDS: Normal Saline Flush 10 ML SYR IVP (13:40)
[2021-05-21 13:53] LABS: ALT 19 U/L (14-59); AST 23 U/L (15-37); Albumin 3.1 g/dL (3.4-5.0); Alkaline Phosphatase 67 U/L (46-116); Anion Gap 8.9 mmol/L (3-11); BUN 17 mg/dL (7-18); Bilirubin, Total 0.5 mg/dL (0.2-1.0); CO2 28.1 mmol/L (21.0-32.0); CREATININE 1.1 mg/dL (0.55-1.02); Calcium 8.7 mg/dL (8.5-10.1); Chloride 104 mmol/L (98-107); Glucose 102 mg/dL (74-106); Sodium 141 mmol/L (136-145); Total Protein 6.8 g/dL (6.4-8.2); Troponin I < 0.05 ng/mL (<0.06)
[2021-05-21 14:15] LABS: D-Dimer 457 ng/mlFEU (<500)
[2021-05-21 14:16] LABS: COVID-19 PCR Negative (Negative)
[2021-05-21] MEDS: Potassium Chloride 20 MEQ TABCR 40 MEQ PO (15:15)
== END 2021-05-21 15:40 | disposition home or self-care (01) ==
PROVIDERS: Emergency Provider Student in an Organized Health Care Education/Training Program; PCP Physician Assistant Medical
DX: R06.02 Shortness of breath (principal); J84.10 Pulmonary fibrosis, unspecified
CPT/HCPCS: 36415; 80053; 87635; 93005; 94640; 96374; 99284; 71045; 83735; 84484; 85025; 85379; 93010; J2930; J7620

== ENCOUNTER → 2021-05-22 12:30 | Outpatient (BNVA) | payer MEDICARE, MEDICAID, SELFPAY | PROVIDERS: PCP Physician Assistant Medical; Referring Provider Physician Assistant Medical; Visit Provider Psychiatry & Neurology Neurology | DX: I63.9 Cerebral infarction, unspecified (principal); R73.03 Prediabetes; G25.0 Essential tremor | CPT/HCPCS: 99213 ==

== ENCOUNTER 2021-07-17 20:35 | Emergency (ER) | payer MEDICARE, MEDICAID, SELFPAY ==
[2021-07-17 20:39] VITALS: BP 192/90; PULSE 107; RESP 18; TEMP 36.2; O2SAT 97
--- OUTSIDE RECORDS SUMMARY | 2021-07-17 20:41 | XMS_ITS | Encounter Summary ---
:1950 Author Care Team Providers Name Role Phone Rober Cho MD Primary Care Provider [phone] Kiley Yarbrough MD Feather Maker [phone] Sarath Goldberg General Surgeon [phone] Netta Knight MD Thermospray Operator [phone] Hesham Dwyer MD Dope Firer [phone] Reason for Visit None recorded. Assessment and Plan Assessment Note This is a 70-year-old lady here for chronic pain management. Blood pressure appeared low upon intake but by palpatio n her systolic is at least 130 and auscultation with faint heart sounds she does have her diastolic around 80. Doppler would be useful in taking her blood pres sure. She feels that she is feeling worse because of not having her pain meds and this will be re-initiated. Long-term patient has had fibromyalgia with chronic narcot ic use. 1. Fibromyalgia Patient is failing mild narcot ic therapy for generalized pain which causes dysfunction and will be replaced on oxycodone for better long-term chronic pain control. She was treated for acute pa in control with oxycodone with good effe cts. She should follow-up closely with modification of pain control avoiding tolerance or physical dependence. She does still have tramadol for use for less sever e pain which appears to have been prescr ibed by this office in the past but more recently by Dr. Riley and Dr. Goldberg. If oxycodone is working well she should not continue tramadol. 04/03/2020: Continue chronic low-dose lottie cotic therapy for increase activity and presently doing well with variable low-dose short-acting narcotics to increase function. She has failed other therapy. Ris k benefits were reviewed and informed co nsent was obtained. She will be seen every 84 days for monitoring of treatment with patient using tramadol more frequently than oxycodone. Eventually as she impro ves physical status she may be able to b e weaned off oxycodone. 05/25/2020: Continue same medical regimen with 84-day follow-up with this being a short 36-day follow-up with other symptoms. 08/17/2020: Patient stable on present me dical regimen is having acute discomfort over her abdomen which is separate from her fibromyalgia. She is not constipated by history. Continue present medical regimen monitoring for safety. 04/20/2021: Continue present pain manageme nt with follow-up every 84 days at least. Monitor for safety with recent question of family member taking some of her tramadol pills from her bottles. She does do well with tramadol during the day and o xycodone at night for sleep. She is not oversedated. She now is off prednisone. 05/31/2021: Continue pain management lorie e without change in dosing. Patient will follow up at least every 84 days. Monitor for safety. ? oxycodone 5 mg tablet ? tramadol 50 mg tablet ? oxycodone 5 mg tablet ? oxycodone 5 mg tablet 2. Diffuse interstitial pulmonar y fibrosis Continue follow-up with pulmon ology. This will cause some weight loss with pulmonary cachexia. She is status post VATS with local general surgery. 12/15/2020: Patient is on medical therapy and follows up with rheumatology and pulmonology. She is a full code and COLST form was reviewed and filled out today. She understands the consequence of chronic intubation and possible tracheostomy wi th her for pulmonary fibrosis. 05/31/2021: Patient continues to have po or insight into her end-stage lung disease and is very debilitated by this problem. Continue following up with pulmonology as needed with patient appearing stable though chronically ill presently. 3. Hypertensive disorder Patient follows with Dr. Yarbrough and cardiology and is on antihypertensives with blood pressure appearing soft but v henry difficult to auscultate. Continue present medical regimen and follow-up with cardi ology as scheduled. If increasing symptoms see cardiology sooner. Discussion Note: None recorded.Patient educational handouts: No information available. Plan of Care Reminders Provider Appointments Acute 20 07/18/2021 Joycelyn Campos 10:00AM INE[facility] Arevalo ? Preop 08/07/2021 Rober tapia, Clearance 20 1:40PM ? Opioid 08/23/2021 Rober Karen crowsowmya, Management 20 1:00PM ? Follow up 20 on or around Yandy Vang 10/23/2021 MD Lin[facility] None ? ? recorded. Referral None ? ? recorded. Procedures None ? ? recorded. Surgeries None ? ? recorded. Imaging None ? ? recorded. Medications Name Start Date ? ? albuterol sulfate HFA 90 mcg/actuation aerosol inhaler ? INHALE TWO PUFFS BY MOUTH EVERY 4 HOURS aspirin 81 mg tablet,delayed release ? TAKE ONE TABLET BY MOUTH EVERY DAY atorvastatin 10 mg tablet ? Take 1 tablet every day by oral route at bedtime for 90 days. benzonatate 100 mg capsule ? TAKE ONE CAPSULE BY MOUTH TWICE A DAY NEEDED Boost 0.04 gram-1 kcal/mL oral liquid ? DRINK 1 BOTTLE 3 TIMES A DAY diclofenac 1 % topical gel ? APPLY 2 GRAMS TOPICALLY TO THE AFFECTED AREA FOUR FRANCISCO ES A DAY fluticasone propionate 50 mcg/actuation nasal spray,[place] spension ? INSTILL 2 SPRAYS INTO EACH NOSTRIL ONCE DAILY DIRE CTED ipratropium 0.5 mg-albuterol 3 mg (2.5 mg base)/3 mL n ebulization soln ? INHALE CONTENTS OF 1 VIAL IN NEBULIZER EVERY 4 HOURS NEEDED losartan 50 mg-hydrochlorothiazide 12.5 mg tablet ? TAKE ONE TABLET BY MOUTH EVERY DAY megestrol 625 mg/5 mL (125 mg/mL) oral suspension ? TAKE 5 MILLILITERS BY MOUTH EVERY 24 HOURS mycophenolate mofetil 500 mg tablet ? TAKE TWO TABLETS BY MOUTH TWICE A DAY Ofev 150 mg capsule ? TAKE 1 CAPSULE BY MOUTH TWICE A DAY (EVERY 12 HOURS) DIRECTED WITH FOOD. oxycodone 5 mg tablet ? Take 1 tablet every day by oral route at bedtime for 28 days. prednisone 20 mg tablet ? TAKE 2 TABLETS BY MOUTH ONCE DAILY FOR 5 DAYS tramadol 50 mg tablet ? Take 1 tablet 6 times a day by oral route as needed f or 28 days. Vitamin B12 07/31/2019 Take 1 tablet every morning Notes: Med Rec 07/29-laf Medications Administered None recorded. Vitals Height Weight BMI Blood Pressure 5 ft 93 lbs 16 oz 18.4 kg/m2 130/80 mm[Hg] Results Lab Results None recorded. Allergies Code Code System Name Reaction Severity Onset 93212 RxNorm Cefdinir Vomiting Moderate 08/17/2020 50930 RxNorm Gabapentin Other ? ? 010102 RxNorm Levaquin Respiratory ? ? Distress 03214 RxNorm Pepto-bismol Vomiting Mild to ? Moderate Sulfa Anaphylaxis ? ? (Sulfonamide Antibiotics) Problems Name Status Onset Date Source ? Atypical Chest Pain Active 11/03/2018 ? Diffuse Interstitial Pulmonary Fibrosis Active 08/30/19 20 ? Seasonal Allergic Rhinitis Active 05/25/2020 ? Medication Monitoring Active 11/09/2020 ? Transient Cerebral Ischemia Active 12/15/2020 ? Chronic Obstructive Lung Disease Active 12/20/2020 ? Moderate Chronic Obstructive Pulmonary Active ? Disease Acute Bronchitis Active 01/01/2021 ? Chronic Diarrhea Active 01/23/2021 ? Fibromyalgia Active ? History Abnormal Weight Loss Active ? History Procedures Date Name Performed by ? 07/28/2019 Video Assisted Thoracoscopy Information not available Notes: interstitial lung disease 08/18/2016 Cardiac Catheterization Information not available Notes: normal 02/18/2015 Laparotomy Exploratory Information not a vailable Notes: [facility] ? Appendectomy Information not avai lable ? Cholecystectomy Information not avai lable ? Tonsillectomy Information not avai lable Notes: Gastric Bypass 1978 Vaccine List Vaccine Type COVID-19, mRNA, LNP-S, PF, 100 mcg/0.5 m L dose (Moderna) 10/05/2020 11/02/2020 Hep B, adult 08/18/2008 influenza, high dose seasonal 05/12/2017?0.5 mL influenza, high-dose, quadrivalent 05/25/2020?0.7 mL influenza, seasonal, injectable 08/18/2013 influenza, trivalent, adjuvanted 06/03/2018?0.5 mL 06/28/2019?0.5 mL pneumococcal conjugate PCV 13 06/28/2019?0.5 mL pneumococcal polysaccharide PPV23 08/18/2013 11/04/2019?0.5 mL Td (adult), adsorbed 08/18/2009 Social History Tobacco Smoking Status Never Smoker Have you been exposed to chemicals Y Not es: houskeeper or toxins? Exposure to Asbestos N Are you currently employed? N Have you used IV drugs? N Are you blind or do you have N Notes: Artem duque corrected difficulty seeing? What is your code status? 0 How much tobacco do you chew? none What was the date of your most 03/02/2021 recent tobacco screening? Do you have an advanced directive? Y Exposure to Silica N Live alone or with others? with others Notes: son and daughter in law What is your level of alcohol None consumption? Animal exposure? Y Notes: 2 dogs and 1 cat Do you have any pets? Y Notes: dog Language Difficulties No Notes: serbian Are you deaf or do you have serious N difficulty hearing? Are you passively exposed to smoke? N Hard of hearing or deaf in one or N both ears? What is your level of caffeine Moderate Notes: 1 cup tea daily consumption? Functional Status No Impairment. Past Encounters 05/31/2021 Fibromyalgia; Diffuse Interstitial Pulmo nary Fibrosis; Hypertensive Disorder Rober Cho MD: [address] [place] [phone], Ph. History of Present Illness ? Back Pain Reported By: Patient HPI: Location: pain radiating to the buttocks, pain radiating to the legs, lumbar; Pain is radiating mo re, knee is getting worse & feels like she is going to fall. Quality: s harp, dull, stiffness. Severity: worsening. Duration: chronic. Alleviati ng Factors: relieved by changing position; Prescription medications. Ag gravating Factors: movement/positioning, worse at night; weather. Ass ociated Symptoms: no fever, weak limbs, tingling, shortness of breat h ? Chronic Pain Follow-up Reported By: Patient HPI: Analgesia: taking pain medic ation, percentage of pain relief: 80 %; last took pain oxycodone last nig ht and tramadol today has enough until due,. Pain Severity: average pain: 4/10, worst pain: 10/10; pain severe today due to running out of Tramad ol. ADL Improvements: physically functioning, overall functio n improved; sleep improved. Adverse Reactions: no nausea, no vom iting, no itching, no drowsiness Notes: <table><tbody><tr><th>Date<<>Med
Calc</><th>
</><th>V PMS
Check<><>
</t h><th>Conc.
Benzos</th><th>
</th><t h>Naloxone</th><th>
</th> <th>Date Agree
Signed</th><th>
</th><th>Last
UDT</th><th>
</th><th >Func Assess
Tool</th><th><b r></th><th>ORT
Score</th><th>
</th> <th>COMM
Score</th></tr>< tr><td>04/03/2020</td><td>30</td><td>
</t d><td>04/03/20</td><td>
</ td><td>no</td><td>
</td><td>no</td><td >
</td><td>04/03/20</td><t d>
</td><td>
</td><td>
</td><td></td><td>
</td><td>n /a</td><td>
</td><td>n/a</td><td>
</td ></tr><tr><td>05/25/2020</td ><td>32.5</td><td>
</td><td>05/23/2020< /td><td>
</td><td>no</td> <td>
</td><td>no</td><td>
</td><td> 04/03/20</td><td>
</td><td >
</td><td>
</td><td></td><td>
</td><td>
</td><td><b r></td><td>
</td><td>
</td></tr><tr ><td>08/17/2020</td><td>35</ td><td>
</td><td>08/17/20</td><td>
</t d><td>no</td><td>
</td ><td>no</td><td>
</td><td>04/03/20</td><td >
</td><td>today</td>< td>
</td><td></td><td>
</td><t d>na</td><td>
</td><td>na </td><td>
</td></tr><tr><td>11/09/2020< /td><td>37.5</td><td>
</t d><td>11/07/20</td><td>
</td><td>no</td><t d>
</td><td>no</td><td><b r></td><td>04/03/2020</td><td>
</td><td>to day</td><td>
</td><td> </td><td>
</td><td>na</td><td>
</ td><td>na</td><td>
</td>< /tr><tr><td>02/01/21</td><td>37.5</td><td>
</td><td>01/31/21</td><td >
</td><td>no</td><td>
</td><td>no</td ><td>
</td><td>04/03/2020< /td><td>
</td><td>11/09/2020</td><td>
< /td><td></td><td>
</ td><td>
</td><td>
</td><td>
</td ><td>
</td></tr><tr><td></td><td>38.5</td><td>
</td><td >04/20/2021</td><td>
</td>< td>no</td><td>
</td><td>no</td><td>
</td><td>discussed</td><td>
</td><td>next visit</td><td>
</td><td>1 </td><td>
</td><td>na</td><td>
</td><td>na</td><td>
</td ></tr><tr><td>05/31/21</td><td>37.5</td><td& gt;
</td><td>05/29/21</td ><td>
</td><td>no</td><td>
</td><td>no </td><td>
</td><td></td><td>
</td><td>
</td><td>
&lt ;/td><td>50/60</td><td>
< /td><td>na</td><td>
</td><td>na</td><t d>
</td></tr><tr><td>< br></td><td>
</td><td>
</td><td>
</ td><td>
</td><td>
</td ><td>
</td><td>
</td><td>
</td>< td>
</td><td>
</td><td >
</td><td>
</td><td>
</td><td>< br></td><td>
</td><td>
</td><td>
</td><td><table></table></td>< /tr></tbody></table> Note: <p>This is a 70-year-old female patient her for follow up with provider for pain medication. She is due for her tramadol on 05/31 and her oxycodone on 05/29 . She has been out of the Tramadol for 2 days. Patient has chronically been on shortage narcotic therapy.</p>Review of Systems: ROS as noted in the HPI Review of Systems ? Notes: Positive for generalized wea kness which is worse since he has run out of her pain medications recently. S he does not feel dizzy/lightheaded, no complaints of palpitations and no incre ase dyspnea though she is chronically tachypneic with end-stage lung disease. 13 point review of systems otherwise unrevealing or stable. Patient lives wit h family. Physical Exam ? General Adult Exam (female) Reported By: Patient Constitutional: General Appearance: well-dev eloped, too thin. Level of Distress: NAD. Ambulation: ambulating normally Psychiatric: Insight: good judgement. Men ryan Status: active and alert, normal mood, normal affect. Orienta tion: to time, to place, to person. Memory: recent memory normal , remote memory normal Head: Head: normocephalic Eyes: Lids and Conjunctivae: non-i njected, no discharge, no pallor. Pupils: PERRLA. EOM: EOMI. L ens: clear. Sclerae: non-icteric. Vision: acuity grossly intac t ENMT: Ears: no lesions on external ear, EACs clear, TMs clear. Hearing: no hearing loss. Nose: no le sions on external nose, nares patent, no sinus tenderness. Lips, T eeth, and Gums: no mouth or lip ulcers, edentulous. Oropharynx: mois t mucous membranes, no erythema Neck: Neck: supple, FROM. Lymph No yolande: no cervical LAD, no supraclavicular LAD. Thyroid : no enlargement Lungs: Respiratory effort: no dyspn ea. Percussion: no dullness, flatness, or hyperresonance. Auscultat ion: no wheezing, no rales/crackles, no rhonchi, decreased breath so unds, diminished air movement Cardiovascular: Heart Auscultation: RRR, nor mal S1, normal S2. Neck vessels: no carotid bruits Abdomen: Bowel Sounds: normal. Inspec tion and Palpation: soft, non-distended, no tenderness , no guarding, no rebound tenderness, no masses, no CVA tenderness . Liver: non-tender, no hepatomegaly. Spleen: non-tender, no splen omegaly Musculoskeletal:: Motor Strength and Tone: nor mal motor strength, normal tone. Joints, Bones, and Muscles: normal movement of all extremities, bony deformity, tenderness. Extremities: no cyanosis, edema Neurologic: Gait and Station: normal gai t. Cranial Nerves: grossly intact. Sensation: grossly intact. C oordination and Cerebellum: no tremor Skin: Inspection and palpation: no rash, no jaundice. Nails: abnormal Back: Thoracolumbar Appearance: no rmal curvature Notes: <p>
</p>
--- OUTSIDE RECORDS SUMMARY | 2021-07-17 20:41 | XMS_ITS | Encounter Summary ---
:1950 Author Care Team Providers Name Role Phone Rober Cho MD Primary Care Provider [phone] Kiley Yarbrough MD Infrastructure Analyst [phone] Sarath Goldberg General Surgeon [phone] Netta Knight MD Eight Section Blower [phone] Hesham Dwyer MD Exhibit Technician [phone] Reason for Visit Follow Up Echo; Follow Up Stress Test; F ollow Up Medication changes; HTN-Hypertension Assessment and Plan 1. Essential hypertension Blood pressure here today is i s well controlled at 125/78. 2. History of cerebrovascular ac cident The patient was hospitalized i november in [place] with a stroke. She has been treated with atorvastatin and aspirin. Her neurologist feels that this might be cardioembolic. Extended mon itoring has showed no evidence of atrial fibrillation The patient had an echocardiogram perfor [facility] which showed an inferoapical area of dyskinesis, new compared to an echo from 2019 at the [facility]. Interestingly, the patient has had c ardiac catheterization done at [facility], in , which showed no evidence of any obstructive coronary artery disease She had a nuclear stress test at [facility] in 2019 notable for a possible small inferior defect which was felt to be false positive The patient's current nuclear stress nahum t and echo seem similar to her previous, dating back at least to 2019. The study does not suggest that she would be at high risk of myocardial infarction and I wo uld not favor repeating her cardiac cath eterization at this time. The patient is agreeable to that after discussion. For now I would recommend continued cons ervative approach. We will plan follow-up in 6 months, soon er should new questions or concerns arise Discussion Note: None recorded.Patient educational handouts: No information available. Plan of Care Reminders Provider Appointments Acute 20 07/18/2021 Joycelyn Campos 10:00AM INEZ Arevalo ? Preop 08/07/2021 Rober tapia, Clearance 20 1:40PM ? Opioid 08/23/2021 Rober sanford, Management 20 1:00PM ? Follow up 20 [...] Height Weight BMI Blood Pressure 5 ft 44.8 kg 19.3 kg/m2 125/78 mm[Hg] Results Lab Results None recorded. Allergies Code Code System Name Reaction Severity Onset 60722 RxNorm Cefdinir Vomiting Moderate 08/17/2020 70624 RxNorm Gabapentin Other ? ? 715016 RxNorm Levaquin Respiratory ? ? Distress 64243 RxNorm Pepto-bismol Vomiting Mild to ? Moderate [...] Laparotomy Exploratory Information not a vailable Notes: [facility] ? Appendectomy Information not avai lable ? [...] Y Notes: dog Language Difficulties No Notes: russian Are you deaf or do you have serious N difficulty hearing? Are you passively exposed to smoke? N Hard of hearing or deaf in one or N both ears? What is your level of caffeine Moderate Notes: 1 cup tea daily consumption? Functional Status No Impairment. Past Encounters 04/17/2021 Essential Hypertension; History of Cereb rovascular Accident Kiley Yarbrough MD: [address] [place] [phone], Ph. History of Present Illness Note: This 70-year-old woman presents for routine follow-up and to review results of testing. She continues to be limited primarily due to her lung disease. Her blood pressure has been much better and she is pleased<div>She was up all night because her dog was vomiting and today she is fatigued
</div><div>Her respiratory status is unchanged. She has been losing weight<br&g t;</div><div>
</div><div>Recent testing included a myocardial perfusion imaging study which reported an ejection fraction of 51%. There appeared to be a small inferolateral area of ischemia though wall motion in this distribution was described as normal
</di v><div>An echocardiogram was done on April 12. Ejection fraction by this technique was 65%. Septal motion was described as paradoxic. There was mild pulmonary hypertension with the estimated right ventricular systolic pressure of 35 to 40 mmHg
</div><div>
</di v><div>Patient had cardiac catheterization in 2017 at the [facility] negative for obstructive coronary disease
</div><div>She had a myocardial perfusion imaging study in 2019, also at the [facility] which showed an abnormality in the inferolateral segment. They felt this was possibly artifact and did not repeat her coronary angiography.
</div><div>By review, it appears that the MPI in 2019 is similar to her current study<br&g t;</div> Review of Systems ? Brief Cardiology ROS Reported By: Patient Cardio Basic: Cardiovascular Symptoms: no chest pressure, no chest pain, dyspnea on exertion, fatigue, shortness of breath Constitutional: Constitutional: weight loss ( lbs) Physical Exam ? Cardiology Exam Reported By: Patient Constitutional: General Appearance: ; Frail chronically ill-appearing woman no acute distress Neck: Neck: trachea midline. Carot id Arteries: bilateral normal upstroke, no bruits. Jugular Veins: ju gular venous pressure unable to assess Lungs: Auscultation: decreased mart th sounds Cardiovascular: Precordial Exam: non displac ed focal PMI. Rate And Rhythm: regular. Heart Sounds: normal S1, phy siologically split S2; No murmur or gallop. Extremities: no markel a Skin: Inspection and Palpation: wa rm and dry
--- OUTSIDE RECORDS SUMMARY | 2021-07-17 20:41 | XMS_ITS ---
:1950 Author Care Team Providers Name Role Phone JAYSON WYNNE General Surgeon [phone] NETTA KNIGHT MD Literacy Coach [phone] SHASHANK DAVILA MD Director Of Special Events [phone] HERBERT AZEVEDO MD Primary Care Provider [phone] KILEY YARBROUGH MD Broommaking Supervisor [phone] Allergies Code Code System Name Reaction Severity Status Onset 08426 RxNorm Cefdinir Vomiting Moderate Active 0 62415 RxNorm Gabapentin Other ? Active ? 520754 RxNorm Levaquin Respiratory ? Active ? Distress 22565 RxNorm Pepto-bismol Vomiting Mild to Active ? Moderate Sulfa Anaphylaxis ? Active ? (Sulfonamide Antibiotics) Medications Name Status Start Date Stop Date ? ? Advair HFA 115 mcg-21 Completed 10/05/2018 11/03/2018 mcg/actuation aerosol inhaler albuterol sulfate HFA 90 Active ? Not karon ilable mcg/actuation aerosol inhaler amitriptyline 25 mg tablet Completed 10/07/201604/24 1 (one) Tablet: qhs - at bedtime amoxicillin 875 mg-potassium clavulanate 125 mg tablet Completed ? 10/19/2020 TAKE ONE TABLET BY MOUTH EVERY 12 HOURS FOR 10 DAYS aspirin 81 mg tablet,delayed Active ? Not available release atorvastatin 10 mg tablet Active ? Not av ailable Take 1 tablet every day by oral route at bedtime for 90 days. atorvastatin 40 mg tablet Completed ? 2020 TAKE ONE TABLET BY MOUTH EVERY DAY Augmentin Completed 04/09/2020 05/25/2020 azithromycin 250 mg tablet Completed ? 11/09 azithromycin 500 mg tablet Completed ? 01/23 benzonatate 100 mg capsule Active ? Not a vailable TAKE ONE CAPSULE BY MOUTH TWICE A DAY NEEDED benzonatate 200 mg capsule Active ? Not a vailable TAKE ONE CAPSULE BY MOUTH THREE TIMES A DAY NEEDED Boost 0.04 gram-1 kcal/mL oral Active ? N ot available liquid Boost Plus Completed ? 10/06/2018 8 oz. up to three times daily Boost Plus 0.06 gram-1.5 kcal/mL oral liquid Completed ? 10/06/2018 Take 237 mL 3 times a day by oral route with meals. cefdinir 300 mg capsule Completed ? 10/20/19 21 TAKE ONE CAPSULE BY MOUTH TWICE A DAY FOR 10 DAYS cefuroxime axetil 500 mg tablet Completed 06/20/2019 06/28/2019 Take 1 tablet twice a day by oral route for 10 days. Celebrex 100 mg capsule Completed 10/07/2016 04/24/20 17 1 (one) Capsule Capsule: at bedtime cephalexin 500 mg capsule Completed ? 2020 diclofenac 1 % topical gel Active ? Not a vailable doxycycline hyclate 100 mg capsule Completed 06/20/2019 06/28/2019 Take 1 capsule twice a day by oral route for 10 days. doxycycline hyclate 200 mg tablet,delayed release Completed 04/24/2017 04/24/2017 2 (two) Tablet: daily Ensure oral liquid Completed 07/31/2019 12/29/2019 Take 237 mL by oral route with meals for 30 days. escitalopram 5 mg tablet Completed 06/20/2019 019 fluticasone propionate 50 mcg/actuation nasal spray,suspension A ctive ? Not available INSTILL 2 SPRAYS INTO EACH NOSTRIL ONCE DAILY DIRECTED gabapentin 100 mg capsule Completed 07/31/20162016 1 (one) Capsule: see comments Heparin (Porcine) in D5W 40 unit/mL-5 % intravenous solution Completed 10/06/2018 10/09/2018 Inject 500 units/hrs by intravenous route. Premixed bag. [facility] initial dosing: Iraj terry (round to the nearest 500 units of heparin): 60 units per kg IV once (max 4000 units); Initial infusion (round to the nearest 100 units of heparin): Cont infu daniele 12 units per kg per hr (max 1000 un its per hr). DVT-PE-A.Fib initial dosing: Initial bolus (round to the nearest 500 units of heparin): 80 units per kg once (max 5000 units); Initial infusion (ro und to the nearest 100 units of heparin) : Cont. infusion 18 units per kg per hr (max 1000 units per hr); Cont. infusion 14 units per kg per hr (may use in patients with BMI greater than 40 kg per m2) ipratropium 0.5 mg-albuterol 3 Active ? N ot available mg (2.5 mg base)/3 mL nebulization soln levofloxacin 250 mg tablet Active ? Not a vailable losartan 50 mg-hydrochlorothiazide 12.5 mg tablet Active ? Not available TAKE ONE TABLET BY MOUTH EVERY DAY megestrol 625 mg/5 mL (125 mg/mL) oral suspension Active ? Not available TAKE 5 MILLILITERS BY MOUTH EVERY 24 HOURS metoprolol tartrate 25 mg tablet Completed 10/06/2018 10/09/2018 Take 25 mg every 6 hours by oral route. miconazole nitrate 2 % vaginal cream Active ? Not available APPLY TOPICALLY TO VULVA TWICE A DAY. I F ANY VAGINAL ITCH APPLY VAGINALLY WELL. multivit and minerals-ferrous gluconate 9 mg iron/15 mL oral liquid Completed 06/20/2019 07/21/2019 Take by oral route. multivitamin Completed ? 07/31/2019 Take 1 tablet every morning multivitamin tablet Completed 07/31/2019 01/31/2020 Take 1 tablet every day by oral route in the morning. mycophenolate mofetil 500 mg Active ? Not available tablet Normal Saline 0.9 % injection solution Completed 9 10/09/2018 Take 10 mL every 12 hours by injection route. Ofev 100 mg capsule Completed ? 12/29/2019 Take 1 capsule twice a day by oral route. Ofev 150 mg capsule Active ? Not availabl e TAKE 1 CAPSULE BY MOUTH TWICE A DAY (EVERY 12 HOURS) DIRECTE D WITH FOOD. oxycodone 5 mg tablet Active ? Not availa ble Take 1 tablet every day by oral route at bedtime for 28 days. oxycodone-acetaminophen 5 Completed ? 2019 mg-325 mg tablet prednisone 10 mg tablet Completed ? 11/10/19 21 prednisone 20 mg tablet Active ? Not avai lable TAKE 2 TABLETS BY MOUTH ONCE DAILY FOR 5 DAYS prednisone 50 mg tablet Completed ? 12/29/19 20 Symbicort 160 mcg-4.5 mcg/actuation HFA aerosol inhaler Complete d 06/20/2019 07/16/2019 Inhale 2 puffs every 3-4 hours by inhalation route as needed. tramadol 50 mg tablet Active ? Not availa ble Take 1 tablet 6 times a day by oral route as needed for 28 days . Vitamin B12 Active 07/31/2019 Not available Take 1 tablet every morning Vitamin B12 Completed ? 10/05/2018 1500 mg once daily Notes: Med Rec 07/29-laf Problems Name Status Onset Date Source ? Chronic Obstructive Lung Disease Unknown 04/01/2018 ? Angina Pectoris Unknown 11/03/2018 ? Atypical Chest Pain Active 11/03/2018 ? Diffuse Interstitial Pulmonary Active 08/30/2019 ? 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 Fracture of Phalanx of Finger Unknown 04/09/2020 ? Seasonal Allergic Rhinitis Active 05/25/2020 ? Chronic Obstructive Lung Disease Unknown 06/27/2020 ? Acute Bronchitis Unknown 08/17/2020 ? Increased Frequency of Urination Unknown 08/17/2020 ? Generalized Abdominal Pain Unknown 08/17/2020 ? Medication Monitoring Active 11/09/2020 ? Transient Cerebral Ischemia Active 12/15/2020 ? Chronic Obstructive Lung Disease Active 12/20/2020 ? Moderate Chronic Obstructive Pulmonary Active 1 ? Disease Acute Bronchitis Active 01/01/2021 ? Chronic Diarrhea Active 01/23/2021 ? Biotin Deficiency Disease Unknown ? Histor y Pneumonia Unknown ? History Acute Exacerbation of Chronic Unknown ? Hi story Obstructive Airways Disease Pain in the Coccyx Unknown ? History Fibromyalgia Active ? History Abnormal Weight Loss Active ? History Active Immunization Unknown ? History History of Bariatric Surgical Unknown ? Hi story Procedure Closed Fracture of Left Lower Leg Unknown ? History Procedures Date Name Performed by ? 07/28/2019 Video Assisted Thoracoscopy Information not available Notes: interstitial lung disease 08/18/2016 Cardiac Catheterization Information not available Notes: normal 02/18/2015 Laparotomy Exploratory Information not a vailable [place] [facility] [place] Appendectomy Information not avai lable ? Cholecystectomy Information not avai lable ? Tonsillectomy Information not avai lable 04/01/2018 XR, Chest, 2 View [facility] Hospit al Radiology (Internal) [address] [place] [address] (Work Place) 01/18/2019 XR, Chest, 2 View [facility] Radiology (Internal) [address] [place] [place] [address] (Work Place) 06/28/2019 CT, Chest, W/o Contrast [facility] Radiology (Internal) [address] [place] [address] (Work Place) 01/07/2020 CT, Chest, W/ Contrast [facility] Radiology (Internal) [address] [place] [address] (Work Place) 01/07/2020 CT, Chest, W/o Contrast [facility] Radiology (Internal) [address] [place] [address] (Work Place) 01/12/2020 US, Retroperitoneum [facility] Radiology (Internal) [address] [place] [address] (Work Place) 04/20/2020 CT, Chest, W/o Contrast [facility] spital Radiology (Internal) [address] [place] [address] (Work Place) 02/13/2021 NM, Myocardial Perfusion Scan, [facility] Radiology (Internal) Multiple [address] [place] [address] (Work Place) 02/13/2021 US, Echocardiogram, Transthoracic, [facility] Radiology (Internal) Complete [address] [place] [address] (Work Place) Notes: Gastric Bypass 1979 Results Lab Results Date Name Specimen Result Interpretation Description Value Range Status Address ? 01/23/2021 CBC W/ BLD High Wbc 10.8 5.0-10.0 Final [facility] Auto Diff 10*3/uL 10*3/uL Hospi ryan Lab (Internal) : [address] ? ? BLD ? Rbc 4.79 4.10-5.30 Final [facility] 10*6/uL 10*6/uL Hospital Lab (Internal) : [address] ? ? BLD ? Hgb 14.9 g/dL 12.0-16.0 [facility] g[facility]dL Hospital L ab (Internal) : [address] ? ? BLD High Hct 48.2 % 37.0-47.0 Final [facility] ount % Hospital L ab (Internal) : [address] [place] ? ? BLD High Mcv 100.6 fL 80.0-96.0 Final [facility] fL Hospital L ab (Internal) : [address] ? ? BLD ? Mch 31.1 pg 26.0-32.0 Final [facility] pg Hospital L ab (Internal) : [address] ? ? BLD Low Mchc 30.9 g/dL 31.0-35.0 Final [facility] g/dL Hospital L ab (Internal) : [address] ? ? BLD High Rdw 15.3 % 11.5-14.5 Final [facility] % Hospital L ab (Internal) : [address] ? ? BLD ? Plt 386 10*3/uL 130-450 Final [facility] 10*3/uL Hospital Lab (Internal) : [address] ? ? BLD ? Anc 6.78 ? Final [facility] try 10*3/uL Hospital Lab (Internal) : [address] ? ? BLD ? Nlr 2.28 0.00-3.20 Final [facility] Hospital L ab (Internal) : [address] [place] ? ? BLD ? Neutro 63.0 % 40.0-75.0 Final [facility] % Hospital L ab (Internal) : [address] ? ? BLD ? Lymph 27.7 % 20.0-50.0 Final [facility] Hospital L ab (Internal) : [address] ? ? BLD ? [place] 7.3 % 2.0-10.0 Final [facility] unt % Hospital L ab (Internal) : [address] [place] ? ? BLD ? Eos 1.3 % 1.0-6.0 % Final [facility] Hospital L ab (Internal) : [address] ? ? BLD ? Baso 0.4 % 0.0-1.0 % Final [facility] Hospital L ab (Internal) : [address] ? ? BLD ? Ig 0.3 % 0.0-0.9 % Final [facility] Hospital L ab (Internal) : [address] 01/23/2021 Iron, SERUM ? Iron 52 ug/dL 37-170 Final [facility] Serum ug/dL Hospital L ab (Internal) : [address] 01/23/2021 CMP, S ? g/r 95 mg/dL 74-106 Final [facility] Serum or mg/dL Hospital Lab Plasma (Internal) : [address] ? ? S ? Bun 11 mg/dL 7-17 Final [facility] unt mg/dL Hospital L ab (Internal) : [address] ? ? S ? Crea 0.70 mg/dL 0.52-1.04 Final [facility] mg/dL Hospital L ab (Internal) : [address] t ? ? S ? Ca 9.8 mg/dL 8.4-10.2 Final [facility] mg/dL Hospital L ab (Internal) : [address] ? ? S ? Na 143 mmol/L 137-145 Final [facility] mmol/L Hospital L ab (Internal) : [address] ? ? S Low K 3.4 mmol/L 3.5-5.1 Final [facility] mmol/L Hospital L ab (Internal) : [address] ? ? S ? Cl 106 mmol/L 98-107 Final [facility] mmol/L Hospital L ab (Internal) : [address] ? ? S ? Tco2 25.0 mmol/L 22.0-30.0 Final [facility] mmol/L Hospital L ab (Internal) : [address] ? ? S ? Tp 7.4 g/dL 6.3-8.2 Final [facility] g/dL Hospital L ab (Internal) : [address] ? ? S ? Alb 4.1 g/dL 3.5-5.0 [facility] L ab (Internal[facility] : [address] ? ? S ? Tbil 0.6 mg/dL 0.2-1.3 Final [facility] mg/dL Hospital L ab (Internal) : [address] ? ? S ? Alp 93 U/L 38-126 Final [facility] try U/L Hospital L ab (Internal) : [address] ? ? S ? Alt 22 U/L 9-52 U/L Final [facility] (Sgpt) Hospital L ab (Internal) : [address] ? ? S High Ast 65 U/L 14-36 U/L [facility] Hospital L ab (Internal) : [address] t 01/23/2021 CRP, High S ? Rcrp <0.10 mg/dL 0.10-0.30 Fi nal [facility] Sensitivi mg/dL Hospita l Lab ty, Serum (Transplanter al): or Plasma [address] [facility] 01/23/2021 Folate, S ? Folate 7.43 NG/mL 2.76-20.0 [facility] Serum 0 NG/mL Hospital Lab (Internal) : [address] 01/23/2021 Ferritin, S ? Ferr 18 NG/mL 11-264 Final N [facility] Serum or NG/mL Hospital Lab Plasma (Internal) : [address] 01/23/2021 Vitamin S High Vit >1000.0 239.0-931 Final N [facility] B12, B12 pg/mL .0 pg/mL Hospital Lab Serum (Internal) : [address] 01/23/2021 Thyroid S ? Tsh 4.18 0.47-4.68 Final [facility] [place], u[IU]/mL u[IU]/mL Hosp ital Lab Serum (Internal) : [address] 01/23/2021 ESR BLD ? Esr 21 mm/h 0-30 mm/h Final [facility] (Erythroc Hospita l Lab yte (Internal) : Sedimenta [address] t Rate), Blood 01/23/2021 RBC BLD ? Aniso occasional ? Final [facility] Morpholog Hospita l Lab y, Blood (Interna l): [address] ? ? BLD ? Macro occasional ? Final [facility] Hospital L ab (Internal) : [address] 01/23/2021 Venipunct ? Locati Right Hand ? ? P_nc Primary ure on Care [place]: [address], [place] ? ? ? Needle 23g ? ? P_nc Prim jason Butterfly Care [place]: [address], [place] ? ? ? Number 1 ? ? P_nc Prim jason of Care Attempt [place] s: [address], [place] ? ? ? Succes Yes ? ? P_nc Prim jason sful Care [place]: [address], [place] ? ? ? Dressi Pressure ? ? P_nc Pr imary ng Band-aid Care Applied [place]: [address], [place] ? ? ? Initia HJ ? ? P_nc Prim jason ls Care [place]: [address], [place] 11/09/2020 Drug UR ? Thc negative neg (50 Final [place] Screen, NG/mL NG/mL) Hospital Lab Urine NG/mL (Internal) : [address] ? ? UR ? Pcp negative neg (25 Final [facility] NG/mL) Hospital L ab (Internal) : [address] ? ? UR ? Penelope negative neg (150 Final [place] NG/mL) Hospital L ab (Internal) : [address] ? ? UR ? Met negative neg (500 Final [place] NG/mL) Hospital L ab (Internal) : [address] ? ? UR ABNORMAL Opi positive neg (100 Final [facility] [place] NG/mL) Hospital L ab (Internal) : [address] ? ? UR ? Amp negative neg (500 Final [place] NG/mL) Hospital L ab (Internal) : [address] ? ? UR ? Bzo negative neg (150 Final [place] NG/mL) Hospital L ab (Internal) : [address] ? ? UR ? Tca negative neg (300 Final [place] NG/mL) Hospital L ab (Internal) : [address] ? ? UR ? Mtd negative neg (200 Final [place] NG/mL) Hospital L ab (Internal) : [address] t ? ? UR ? Bar negative neg (200 Final [place] NG/mL) Hospital L ab (Internal) : [address] ? ? UR ? Oxy negative neg (100 Final [place] NG/mL) Hospital L ab (Internal) : [address] ? ? UR ? Ppx negative neg (300 Final [place] NG/mL) Hospital L ab (Internal) : [address] ? ? UR ? Bup negative neg (10 Final [place] [facility] NG/mL) Hospital L ab (Internal) : [address] 11/09/2020 Culture UR ? Final microbiolog ? Final [place] ([place] y results Hospit al Lab Count), (Internal ): Urine [address] 11/09/2020 Tramadol, UR ? Tramad 77161 NG/mL cutoff:25 F inal [place] Urine ol NG/mL Hospital L ab (Internal) : [address] ? ? UR ? O-desm 88640 NG/mL cutoff:25 Final [facility] ethyltr NG/mL Hospital Lab amadol (Internal) : [address] 11/09/2020 Opiates, UR ? Codein negative <50.0 Final [facility] Qualitati e NG/mL NG/mL Hospita l Lab ve, Urine (Transplanter al): [address] t ? ? UR ? Morphi negative <50.0 Final [place] [facility] ne NG/mL NG/mL Hospital L ab (Internal) : [address] t ? ? UR High Hydroc 1136.9 <50.0 Final [facility] ntry odone NG/mL NG/mL Hospital L ab (Internal) : [address] t ? ? UR High Hydrom 205.0 NG/mL <50.0 Final [facility] [place] orphone NG/mL Hospital Lab (Internal) : [address] t ? ? UR ? Oxycod negative <50.0 Final [place] [facility] one NG/mL NG/mL Hospital L ab (Internal) : [address] t ? ? UR ? Oxymor negative <50.0 Final [facility] o[facility] phone NG/mL NG/mL Hospital L ab (Internal) : [address] t 10/19/2020 CBC W/ BLD High Wbc 11.0 5.0-10.0 Final [facility] Auto Diff 10*3/uL 10*3/uL Hospi ryan Lab (Internal) : [address] ? ? BLD ? Rbc 4.64 4.10-5.30 Final [facility] 10*6/uL 10*6/uL Hospital Lab (Internal) : [address] ? ? BLD ? Hgb 13.7 g/dL 12.0-16.0 Final [facility] g/dL Hospital L ab (Internal) : [address] ? ? BLD ? Hct 45.7 % 37.0-47.0 Final [facility] ount % Hospital L ab (Internal) : [address] ? ? BLD High Mcv 98.5 fL 80.0-96.0 Final [facility] fL Hospital L ab (Internal) : [address] ? ? BLD ? Mch 29.5 pg 26.0-32.0 Final [facility] pg Hospital L ab (Internal) : [address] ? ? BLD Low Mchc 30.0 g/dL 31.0-35.0 Final [facility] g/dL Hospital L ab (Internal) : [address] t ? ? BLD High Rdw 14.6 % 11.5-14.5 Final [facility] ount % Hospital L ab (Internal) : [address] ? ? BLD ? Plt 323 10*3/uL 130-450 Final [facility] Country 10*3/uL Hospital Lab (Internal) : [address] t ? ? BLD ? Anc 6.87 ? Final [facility] try 10*3/uL Hospital Lab (Internal) : [address] ? ? BLD ? Nlr 2.03 0.00-3.20 Final [facility] Hospital L ab (Internal) : [address] ? ? BLD ? Neutro 62.2 % 40.0-75.0 Final [facility] % Hospital L ab (Internal) : [address] ? ? BLD ? Lymph 30.6 % 20.0-50.0 Final [facility] % Hospital L ab (Internal) : [address] ? ? BLD ? [place] 5.7 % 2.0-10.0 Final [facility] % Hospital L ab (Internal) : [address] ? ? BLD ? Eos 1.0 % 1.0-6.0 % Final [facility] L ab (Internal) : [address] ? ? BLD ? Baso 0.3 % 0.0-1.0 % Final [facility] L ab (Internal) : [address] ? ? BLD ? Ig 0.2 % 0.0-0.9 % Final [facility] L ab (Internal) : [address] 10/19/2020 Hepatic S ? Tbil 0.5 mg/dL 0.2-1.3 Final [facility] Function mg/dL Hospital Lab Panel, (Internal) : Serum [address] t ? ? S ? Dbil 0.2 mg/dL 0.0-0.3 Final [facility] mg/dL Hospital L ab (Internal) : [address] t ? ? S ? Alp 76 U/L 38-126 Final [facility] try U/L Hospital L ab (Internal) : [address] ? ? S ? Alt 16 U/L 9-52 U/L [facility] (Sgpt) Hospital L ab (Internal) : [address] ? ? S High Ast 38 U/L 14-36 U/L Final [facility] (Sgot) Hospital L ab (Internal) : [address] ? ? S ? Ggt 23 U/L 12-43 U/L Final [facility] L ab (Internal) : [address] t ? ? S ? Tp 7.5 g/dL 6.3-8.2 Final [facility] g/dL Hospital L ab (Internal) : [address] t ? ? S ? Alb 4.1 g/dL 3.5-5.0 Final [facility] g/dL Hospital L ab (Internal) : [address] 08/17/2020 Drug UR ? Thc negative neg (50 Final [place] Screen, NG/mL NG/mL) Hospital Lab Urine NG/mL (Internal) : [address] ? ? UR ? Pcp negative neg (25 Final [place] [facility] [place] NG/mL) Hospital L ab (Internal) : [address] t ? ? UR ? Penelope negative neg (150 Final [place] NG/mL) Hospital L ab (Internal) : [address] ? ? UR ? Met negative neg (500 Final [place] NG/mL) Hospital L ab (Internal) : [address] ? ? UR ABNORMAL Opi positive neg (100 Final [facility] [place] NG/mL) Hospital L ab (Internal) : [address] ? ? UR ? Amp negative neg (500 Final [place] NG/mL) Hospital L ab (Internal) : [address] ? ? UR ? Bzo negative neg (150 Final [place] NG/mL) Hospital L ab (Internal) : [address] t ? ? UR ? Tca negative neg (300 Final [place] NG/mL) Hospital L ab (Internal) : [address] ? ? UR ? Mtd negative neg (200 Final [place] NG/mL) Hospital L ab (Internal) : [address] ? ? UR ? Bar negative neg (200 Final [place] NG/mL) Hospital L ab (Internal) : [address] t ? ? UR ? Oxy negative neg (100 Final [place] NG/mL) Hospital L ab (Internal) : [address] ? ? UR ? Ppx negative neg (300 Final [place] NG/mL) Hospital L ab (Internal) : [address] ? ? UR ? Bup negative neg (10 Final [place] [facility] [place] NG/mL) Hospital L ab (Internal) : [address] 08/17/2020 Culture UR ? Final microbiolog ? Final [place] ([place] y results Hospit al Lab Count), (Internal ): Urine [address], [address] t 08/17/2020 Opiates, UR ? Codein negative <50.0 Final N orth [facility] Qualitati e NG/mL NG/mL Hospita l Lab ve, Urine (Transplanter al): [address], [address] t ? ? UR ? Morphi negative <50.0 Final [facility] o[facility] ne NG/mL NG/mL Hospital L ab (Internal) : [address], [address] ? ? UR High Hydroc 785.7 NG/mL <50.0 Final [facility] [place] odone NG/mL Hospital L ab (Internal) : [address] ? ? UR High Hydrom 273.9 NG/mL <50.0 Final [facility] [place] orphone NG/mL Hospital Lab (Internal) : [address] ? ? UR ? Oxycod negative <50.0 Final [facility] one NG/mL NG/mL Hospital L ab (Internal) : [address] ? ? UR ? Oxymor negative <50.0 Final [facility] phone NG/mL NG/mL Hospital L ab (Internal) : [address] 08/17/2020 Urinalysi Urine ? Color Pale Yellow ? ? P_nc Primary s, Care Dipstick, [place]/ [place] Reflex s: [address], [place] ? ? Urine ? Appear Cloudy ? ? P_nc Prim jason ance Care [place]: [address], [place] ? ? Urine ? Glucos Normal ? ? P_nc Prim jason e Care [place]: [address], [place] ? ? Urine ? Biliru Negative ? ? P_nc Pr imary bin Care [place]: [address], [place] ? ? Urine ? Ketone Negative ? ? P_nc Pr imary s Care [place]: [address], [place] ? ? Urine ? Specif 1.020 ? ? P_nc Prim jason ic Care [place]: [address], [place] ? ? Urine ? Blood Moderate ? ? P_nc Orly kiley Care [place]: [address], [place] ? ? Urine ? Ph 6.5 ? ? P_nc Prima ry Care [place]: [address], [place] ? ? Urine ? Protei 3+ ? ? P_nc Prim jason n Care [place]: [address], [place] ? ? Urine ? Urobil 0.2 ? ? P_nc Prim jason inogen Care [place]: [address], [place] ? ? Urine ? Nitrit negative ? ? P_nc Pr imary e Care [place]: [address], [place] ? ? Urine ? Leukoc Small ? ? P_nc Prim jason yte Care Esteras [place] lean [place] s: [address], [place] 07/31/2020 CBC W/ BLD High Wbc 10.5 5.0-10.0 Final [facility] Country Auto Diff 10*3/uL 10*3/uL Hospi ryan Lab (Internal) : [address] ? ? BLD ? Rbc 4.68 4.10-5.30 Final [facility] 10*6/uL 10*6/uL Hospital Lab (Internal) : [address] ? ? BLD ? Hgb 14.6 g/dL 12.0-16.0 Final [facility] g/dL Hospital L ab (Internal) : [address] ? ? BLD High Hct 47.7 % 37.0-47.0 Final [facility] % Hospital L ab (Internal) : [address] ? ? BLD High Mcv 101.9 fL 80.0-96.0 Final [facility] fL Hospital L ab (Internal) : [address] ? ? BLD ? Mch 31.2 pg 26.0-32.0 Final [facility] pg Hospital L ab (Internal) : [address] ? ? BLD Low Mchc 30.6 g/dL 31.0-35.0 Final [facility] g/dL Hospital L ab (Internal) : [address] ? ? BLD ? Rdw 14.3 % 11.5-14.5 Final [facility] % Hospital L ab (Internal) : [address] ? ? BLD ? Plt 322 10*3/uL 130-450 Final [place] 10*3/uL Hospital Lab (Internal) : [address] ? ? BLD ? Anc 7.45 ? Final [facility] try 10*3/uL Hospital Lab (Internal) : [address] ? ? BLD High Nlr 3.30 0.00-3.20 Final [facility] L ab (Internal) : [address] ? ? BLD ? Neutro 70.8 % 40.0-75.0 Final [facility] % Hospital L ab (Internal) : [address] ? ? BLD ? Lymph 21.5 % 20.0-50.[address] [facility] Hospital L ab (Internal) : [address] t ? ? BLD ? [place] 6.0 % 2.0-10.0 Final [facility] % Hospital L ab (Internal) : [address] t ? ? BLD ? Eos 1.0 % 1.0-6.0 % Final [facility] L ab (Internal) : [address] ? ? BLD ? Baso 0.4 % 0.0-1.0 % Final [facility] L ab (Internal) : [address] t ? ? BLD ? Ig 0.3 % 0.0-0.9 % Final [facility] L ab (Internal) : [address] t 07/31/2020 Hepatic S ? Tbil 0.5 mg/dL 0.2-1.3 Final [facility] Function mg/dL Hospital Lab Panel, (Internal) : Serum [address] ? ? S ? Dbil 0.1 mg/dL 0.0-0.3 Final [facility] mg/dL Hospital L ab (Internal) : [address] ? ? S ? Alp 123 U/L 38-126 Final [facility] ntry U/L Hospital L ab (Internal) : [address] ? ? S ? Alt 23 U/L 9-52 U/L [facility] (pt) Hospital L ab (Internal) : [address] t ? ? S High Ast 46 U/L 14-36 U/L [facility] (ot) Hospital L ab (Internal) : [address] t ? ? S ? Ggt 28 U/L 12-43 U/L [facility] Hospital L ab (Internal) : [address] t ? ? S High Tp 8.3 g/dL 6.3-8.2 [facility] g/dL Hospital L ab (Internal) : [address] t ? ? S ? Alb 4.6 g/dL 3.5-5.0 [facility] g/dL Hospital L ab (Internal) : [address] t 07/31/2020 RBC BLD ? [place] occasional ? Final No [facility] Lab y, Blood (Interna l): [address] ? ? BLD ? Macro occasional ? Final [facility] Hospital L ab (Internal) : [address] t 05/25/2020 Culture UR ? Final microbiolog ? Final [facility] ([place] y results Hospit al Lab Count), (Internal ): Urine [address] 05/25/2020 Urinalysi UR ? UA-col yellow pale Final [facility]th [facility] s, or yellow Hospital L ab Dipstick, (Transplanter al): Reflex [address] ? ? UR ABNORMAL UA-luis alfredo hazy clear Final [facility] ear Hospital L ab (Internal) : [address] ? ? UR ? UA-spe >=1.030 1.003-1.0 [facility] Grav 35 Hospital L ab (Internal) : [address] t ? ? UR ? UA-pH 5.5 [pH] 4.6-8.0 [facility] [pH] Hospital L ab (Internal) : [address] t ? ? UR ? UA-fortino negative negative Final [place] [facility] Hospital L ab (Internal) : [address] t ? ? UR ABNORMAL UA-nit positive negative Final [place] rite Hospital L ab (Internal) : [address] t ? ? UR ABNORMAL UA-pro 4+ negative Final [place] t Hospital L ab (Internal) : [address] ? ? UR ? UA-glu negative negative Final [place] [facility] c Hospital L ab (Internal) : [address] ? ? UR ? UA-ket negative negative Final [place] one Hospital L ab (Internal) : [address] t ? ? UR ? UA-uro normal normal Final [facility] ntr faye Hospital L ab (Internal) : [address] t ? ? UR ? UA-faye negative negative Final [facility] i Hospital L ab (Internal) : [address] t ? ? UR ABNORMAL UA-blo small negative Final [facility] od Hospital L ab (Internal) : [address] 05/25/2020 Urinalysi UR ABNORMAL UA-WBC 50-100 0-3 [hpf] Kiah l [place] [facility], [hpf] Hospital [facility] Microscop (Transplanter al): ic [address] t ? ? UR ? UA-RBC 0-2 [hpf] 0-2 [hpf] Final [facility] Hospital L ab (Internal) : [address] ? ? UR ABNORMAL UA-surekha few [hpf] none seen Final N orth [place] teria [hpf] Hospital L ab (Internal) : [address] ? ? UR ? UA-epi rare [hpf] none seen Final [facility] thelial [hpf] Hospital Lab (Internal) : [address] ? ? UR ABNORMAL UA-muc rare [hpf] none seen Final [facility] us [hpf] Hospital L ab (Internal) : [address] t ? ? UR ? Ca Ox rare [hpf] ? Final [place] [facility] Cryst Hospital L ab (Internal) : [address] 05/25/2020 Urinalysi Urine ? Color Dark Yellow ? ? P_nc Primary s, clean Care Dipstick, catch [place]/ [place] Reflex s: [address], [place] ? ? Urine ? Appear Cloudy ? ? P_nc Prim jason clean ance Care catch [place] y[place] s: [address], [place] ? ? Urine ? Glucos Normal ? ? P_nc Prim jason clean e Care catch [place] s: [address], [place] ? ? Urine ? Biliru Negative ? ? P_nc Pr imary clean bin Care catch [place] s: [address], [place] ? ? Urine ? Ketone Negative ? ? P_nc Pr imary clean s Care catch [place]l yrai s: [address], [place] ? ? Urine ? Specif 1.030 ? ? P_nc Prim jason clean ic Care catch Glendive [place]/Or lean s: [address], [place] ? ? Urine ? Blood Small ? ? P_nc Prima ry clean Care catch [place] y[place] s: [address], [place] ? ? Urine ? Ph 5.5 ? ? P_nc Prima ry clean Care catch [place] y[place] s: [address], [place] ? ? Urine ? Protei 3+ ? ? P_nc Prim jason clean n Care catch [place] y[place] s: [address], [place] ? ? Urine ? Urobil 0.2 ? ? P_nc Prim jason clean inogen Care catch [place] y[place] s: [address], [place] ? ? Urine ? Nitrit positive ? ? P_nc Pr imary clean e Care catch [place] yari s: [address], [place] ? ? Urine ? Leukoc Trace ? ? P_nc Prim jason clean yte Care catch Esteras [place] lean e s: [address], [place] 04/20/2020 Hepatic S ? Tbil 0.4 mg/dL 0.2-1.3 Final N orth [facility] Function mg/dL Hospital Lab Panel, (Internal) : Serum [address] ? ? S ? Dbil 0.2 mg/dL 0.0-0.3 Final [place] mg/dL Hospital L ab (Internal) : [address], [place] ? ? S ? Alp 82 U/L 38-126 Final [facility] try U/L Hospital L ab (Internal) : [address] ? ? S ? Alt 27 U/L 9-52 U/L [facility] (Sgpt) Hospital L ab (Internal) : [address] ? ? S High Ast 40 U/L 14-36 U/L [facility] (Sgot) Hospital L ab (Internal) : [address] ? ? S ? Ggt 29 U/L 12-43 U/L Final [facility] L ab (Internal) : [address] ? ? S ? Tp 7.8 g/dL 6.3-8.2 Final [facility] [place] [facility] g[facility]dL Hospital L ab (Internal) : [address] ? ? S ? Alb 4.1 g/dL 3.5-5.0 Final [facility] g/dL Hospital L ab (Internal) : [address] 04/20/2020 Vitamin S High Vit >1000.0 239.0-931 Final N orth [place] B12, B12 pg/mL .0 pg/mL Hospital Lab Serum (Internal) : [address] 03/13/2020 CBC W/ BLD High Wbc 11.0 5.0-10.0 Final [facility] Auto Diff 10*3/uL 10*3/uL Hospi ryan Lab (Internal) : [address] ? ? BLD ? Rbc 4.53 4.10-5.30 Final [facility] 10*6/uL 10*6/uL Hospital Lab (Internal) : [address] ? ? BLD ? Hgb 14.0 g/dL 12.0-16.0 Final [facility] [place] g/dL Hospital L ab (Internal) : [address] ? ? BLD ? Hct 45.8 % 37.0-47.0 Final [facility] % Hospital L ab (Internal) : [address] ? ? BLD High Mcv 101.1 fL 80.0-96.0 Final [facility] fL Hospital L ab (Internal) : [address] [place] ? ? BLD ? Mch 30.9 pg 26.0-32.0 Final [facility] pg Hospital L ab (Internal) : [address] [place] ? ? BLD Low Mchc 30.6 g/dL 31.0-35.0 Final [facility] g/dL Hospital L ab (Internal) : [address] ? ? BLD High Rdw 15.8 % 11.5-14.5 Final [facility] ount % Hospital L ab (Internal) : [address] ? ? BLD ? Plt 413 10*3/uL 130-450 Final [facility] 10*3/uL Hospital Lab (Internal) : [address] ? ? BLD ? Anc 6.71 ? Final [facility] try 10*3/uL Hospital Lab (Internal) : [address] ? ? BLD ? Nlr 1.99 0.00-3.20 Final [facility] Hospital L ab (Internal) : [address] ? ? BLD ? Neutro 60.8 % 40.0-75.0 Final [facility] % Hospital L ab (Internal) : [address] ? ? BLD ? Lymph 30.6 % 20.0-50.0 Final [facility] Hospital L ab (Internal) : [address] ? ? BLD ? [place] 6.5 % 2.0-10.0 Final [facility] % Hospital L ab (Internal) : [address] ? ? BLD ? Eos 1.3 % 1.0-6.0 % Final [facility] Hospital L ab (Internal) : [address] ? ? BLD ? Baso 0.4 % 0.0-1.0 % Final [facility] Hospital L ab (Internal) : [address] ? ? BLD ? Ig 0.4 % 0.0-0.9 % Final [facility] Hospital L ab (Internal) : [address] 03/13/2020 Hepatic S ? Tbil 0.4 mg/dL 0.2-1.3 Final N orth [place] Function mg/dL Hospital Lab Panel, (Internal) : Serum [address] t ? ? S ? Dbil 0.1 mg/dL 0.0-0.3 Final [facility] mg/dL Hospital L ab (Internal) : [address] t ? ? S ? Alp 93 U/L 38-126 Final [facility] try U/L Hospital L ab (Internal) : [address] ? ? S ? Alt 32 U/L 9-52 U/L [facility] (pt) Hospital L ab (Internal) : [address] ? ? S High Ast 44 U/L 14-36 U/L Final [facility] (ot) Hospital L ab (Internal) : [address] t ? ? S ? Ggt 39 U/L 12-43 U/L Final [facility] Hospital L ab (Internal) : [address] ? ? S ? Tp 7.9 g/dL 6.3-8.2 Final [facility] g[facility] Hospital L ab (Internal) : [address] t ? ? S ? Alb 4.1 g/dL 3.5-5.0 Final [facility] g[facility]dL Hospital L ab (Internal) : [address] 03/13/2020 RBC BLD ? [place] occasional ? Final [facility] Morpholog Hospita l Lab y, Blood (Interna l): [address] ? ? BLD ? Macro occasional ? Final [facility] Hospital L ab (Internal) : [address] ? ? BLD ? Polych occasional ? Final [facility] Hospital L ab (Internal) : [address] t 02/02/2020 CBC W/ BLD High Wbc 15.2 5.0-10.0 Final [place] Auto Diff 10*3/uL 10*3/uL Hospi ryan Lab (Internal) : [address] t ? ? BLD ? Rbc 4.45 4.10-5.30 Final [place] [facility] 10*6/uL 10*6/uL Hospital Lab (Internal) : [address] ? ? BLD ? Hgb 13.8 g/dL 12.0-16.0 Final [facility] g/dL Hospital L ab (Internal) : [address] ? ? BLD ? Hct 45.1 % 37.0-47.0 Final [facility] ount % Hospital L ab (Internal) : [address] ? ? BLD High Mcv 101.3 fL 80.0-96.0 Final [facility] fL Hospital L ab (Internal) : [address] ? ? BLD ? Mch 31.0 pg 26.0-32.0 Final [facility] pg Hospital L ab (Internal) : [address] t ? ? BLD Low Mchc 30.6 g/dL 31.0-35.0 Final [facility] g/dL Hospital L ab (Internal) : [address] t ? ? BLD High Rdw 15.6 % 11.5-14.5 Final [facility] ount % Hospital L ab (Internal) : [address] ? ? BLD High Plt 513 10*3/uL 130-450 Final [facility] 10*3/uL Hospital Lab (Internal) : [address] ? ? BLD ? Anc 10.48 ? Final [facility] try 10*3/uL Hospital Lab (Internal) : [address] t ? ? BLD ? Nlr 3.10 0.00-3.20 Final [facility] Hospital L ab (Internal) : [address] ? ? BLD ? Neutro 68.9 % 40.0-75.0 Final [facility] % Hospital L ab (Internal) : [address] ? ? BLD ? Lymph 22.3 % 20.0-50.0 Final [facility] ount % Hospital L ab (Internal) : [address] t ? ? BLD ? [place] 7.2 % 2.0-10.0 Final [facility] unt % Hospital L ab (Internal) : [address] ? ? BLD Low Eos 0.6 % 1.0-6.0 % Final [facility] L ab (Internal) : [address] ? ? BLD ? Baso 0.4 % 0.0-1.0 % Final [facility] L ab (Internal) : [address] ? ? BLD ? Ig 0.6 % 0.0-0.9 % Final [facility] L ab (Internal) : [address] 02/02/2020 Hepatic S ? Tbil 0.3 mg/dL 0.2-1.3 Final [facility] Country Function mg/dL Hospital Lab Panel, (Internal) : Serum [address] ? ? S ? Dbil 0.1 mg/dL 0.0-0.3 Final [facility] mg/dL Hospital L ab (Internal) : [address] t ? ? S ? Alp 119 U/L 38-126 Final [facility] ntry U/L Hospital L ab (Internal) : [address] ? ? S ? Alt 29 U/L 9-52 U/L [facility] (Sgpt) Hospital L ab (Internal) : [address] ? ? S High Ast 48 U/L 14-36 U/L Final [facility] (Sgot) [facility] L ab (Internal) : [address] t ? ? S ? Ggt 41 U/L 12-43 U/L Final [facility] L ab (Internal) : [address] ? ? S ? Tp 8.1 g/dL 6.3-8.2 Final [facility] g[facility]dL Hospital L ab (Internal) : [address] t ? ? S ? Alb 4.0 g/dL 3.5-5.0 Final [facility] g/dL Hospital L ab (Internal) : [address] 02/02/2020 BMP, S High g/r 182 mg/dL 74-106 Final [facility] Serum or mg/dL Hospital Lab Plasma (Internal) : [address] ? ? S High Bun 18 mg/dL 7-17 Final [facility] untry mg/dL Hospital L ab (Internal) : [address] ? ? S ? Crea 0.70 mg/dL 0.52-1.04 Final [facility] mg/dL Hospital L ab (Internal) : [address] ? ? S ? Ca 9.1 mg/dL 8.4-10.2 Final [facility] mg/dL Hospital L ab (Internal) : [address] ? ? S ? Na 142 mmol/L 137-145 Final [facility] mmol/L Hospital L ab (Internal) : [address] ? ? S ? K 4.1 mmol/L 3.5-5.1 Final [facility] mmol/L Hospital L ab (Internal) : [address] ? ? S ? Cl 105 mmol/L 98-107 Final [facility] mmol/L Hospital L ab (Internal) : [address] ? ? S ? Tco2 26.0 mmol/L 22.0-30.0 Final No [facility] mmol/L Hospital L ab (Internal) : [address] 02/02/2020 RBC BLD ? [place] small ? Final [facility] Morpholog Hospita l Lab y, Blood (Interna l): [address] ? ? BLD ? Macro occasional ? Final [facility] Hospital L ab (Internal) : [address] 01/12/2020 Hepatic S ? Tbil 0.3 mg/dL 0.2-1.3 Final [facility] Country Function mg/dL Hospital Lab Panel, (Internal) : Serum [address] ? ? S ? Dbil 0.2 mg/dL 0.0-0.3 Final [facility] mg/dL Hospital L ab (Internal) : [address] ? ? S ? Alp 118 U/L 38-126 Final [facility] ntry U/L Hospital L ab (Internal) : [address] ? ? S ? Alt 32 U/L 9-52 U/L Final [facility] untry (Sgpt) Hospital L ab (Internal) : [address] ? ? S High Ast 45 U/L 14-36 U/L Final [facility] Hospital L ab (Internal) : [address] ? ? S ? Ggt 40 U/L 12-43 U/L Final [facility] Hospital L ab (Internal) : [address] ? ? S ? Tp 7.7 g/dL 6.3-8.2 Final [facility] ountry g/dL Hospital L ab (Internal) : [address] ? ? S ? Alb 3.5 g/dL 3.5-5.0 Final [facility] ountry g/dL Hospital L ab (Internal) : [address] 01/12/2020 CBC W/ BLD High Wbc 11.5 5.0-10.0 Final [facility] Auto Diff 10*3/uL 10*3/uL Hospi ryan Lab (Internal) : [address] ? ? BLD ? Rbc 4.18 4.10-5.30 Final [facility] ountry 10*6/uL 10*6/uL Hospital Lab (Internal) : [address] ? ? BLD ? Hgb 12.7 g/dL 12.0-16.0 Final [facility] g/dL Hospital L ab (Internal) : [address] ? ? BLD ? Hct 40.4 % 37.0-47.[address] [facility] Hospital L ab (Internal) : [address] ? ? BLD High Mcv 96.7 fL 80.0-96.0 Final [facility] fL Hospital L ab (Internal) : [address] ? ? BLD ? Mch 30.4 pg 26.0-32.0 Final [facility] pg Hospital L ab (Internal) : [address] ? ? BLD ? Mchc 31.4 g/dL 31.0-35.0 Final [facility] g/dL Hospital L ab (Internal) : [address] ? ? BLD High Rdw 15.9 % 11.5-14.5 Final [facility] ount % Hospital L ab (Internal) : [address] ? ? BLD High Plt 522 10*3/uL 130-450 Final [facility] 10*3/uL Hospital Lab (Internal) : [address] ? ? BLD ? Anc 8.41 ? Final [facility] try 10*3/uL Hospital Lab (Internal) : [address] t ? ? BLD High Nlr 4.31 0.00-3.20 Final [facility] L ab (Internal) : [address] ? ? BLD ? Neutro 73.5 % 40.0-75.0 Final [facility] Hospital L ab (Internal) : [address] t ? ? BLD Low Lymph 17.0 % 20.0-50.[address] [facility] Hospital L ab (Internal) : [address] t ? ? BLD ? [place] 7.4 % 2.0-10.0 Final [facility] Hospital L ab (Internal) : [address] ? ? BLD ? Eos 1.0 % 1.0-6.0 % Final [facility] L ab (Internal) : [address] ? ? BLD ? Baso 0.3 % 0.0-1.0 % Final [facility] L ab (Internal) : [address] ? ? BLD ? Ig 0.8 % 0.0-0.9 % [facility] L ab (Internal) : [address] 01/12/2020 RBC BLD ? Aniso small ? Final [facility] Morpholog Hospita l Lab y, Blood (Interna l): [address] 12/29/2019 SARS CoV SWAB ? Covid- negative negative Final [facility] 2 RNA 19 Hospital L ab (COVID-19 [facility] (Transplanter al): ), QL, Result [address] note teller-PCR, Claude Sanchez orcarlos Respirato ry Specimen ? ? SWAB ? Perfor [facility] ? Final [facility] Lab Lab lab (Internal) : [address] 12/28/2019 Hepatic ? No ? ? ? [place] Function [facility] Panel, [facility] Serum [facility] Lab: d. [address], [place] 12/28/2019 CBC W/ ? No ? ? ? Joey astern Auto Diff [facility] Lab: d. [address], [place] 12/14/2019 Urinalysi ? No ? ? ? Nor [place] s, [facility] Complete [facility]: d. [address], [place] 11/04/2019 CBC W/ BLD ? Wbc 5.7 10*3/uL 5.0-10.0 Final [facility] Auto Diff 10*3/uL Hospit al Lab (Internal) : [address] t ? ? BLD ? Rbc 5.05 4.10-5.30 Final [facility] ountry 10*6/uL 10*6/uL Hospital Lab (Internal) : [address] ? ? BLD ? Hgb 14.2 g/dL 12.0-16.0 Final [facility] g/dL Hospital L ab (Internal) : [address] ? ? BLD ? Hct 45.6 % 37.0-47.0 Final [facility] ount % Hospital L ab (Internal) : [address] ? ? BLD ? Mcv 90.3 fL 80.0-96.0 Final [facility] fL Hospital L ab (Internal) : [address] ? ? BLD ? Mch 28.1 pg 26.0-32.0 Final [facility] pg Hospital L ab (Internal) : [address] ? ? BLD ? Mchc 31.1 g/dL 31.0-35.0 Final [facility] g/dL Hospital L ab (Internal) : [address] ? ? BLD High Rdw 17.5 % 11.5-14.5 Final [facility] ount % Hospital L ab (Internal) : [address] ? ? BLD ? Plt 262 10*3/uL 130-450 Final [place] 10*3/uL Hospital Lab (Internal) : [address] ? ? BLD ? Anc 2.12 ? Final [place] [facility] 10*3/uL Hospital Lab (Internal) : [address] ? ? BLD Low Neutro 37.2 % 40.0-75.0 Final [facility] % Hospital L ab (Internal) : [address] ? ? BLD ? Lymph 49.6 % 20.0-50.[address] [facility] Hospital L ab (Internal) : [address] ? ? BLD ? [place] 8.4 % 2.0-10.0 Final [facility] % Hospital L ab (Internal) : [address] ? ? BLD ? Eos 3.7 % 1.0-6.0 % Final [facility] L ab (Internal) : [address] ? ? BLD ? Baso 0.9 % 0.0-1.0 % Final [facility] L ab (Internal) : [address] ? ? BLD ? Ig 0.2 % 0.0-0.9 % Final [facility] L ab (Internal) : [address] t 11/04/2019 BMP, S ? g/r 87 mg/dL 74-106 Final [facility] Serum or mg/dL Hospital Lab Plasma (Internal) : [address] ? ? S ? Bun 14 mg/dL 7-17 Final [facility] mg/dL Hospital L ab (Internal) : [address] ? ? S ? Crea 0.60 mg/dL 0.52-1.04 Final [facility] mg/dL Hospital L ab (Internal) : [address] ? ? S ? Ca 9.2 mg/dL 8.4-10.2 Final [facility] mg/dL Hospital L ab (Internal) : [address] ? ? S ? Na 141 mmol/L 137-145 Final [facility] mmol/L Hospital L ab (Internal) : [address] ? ? S Low K 3.3 mmol/L 3.5-5.1 Final [facility] mmol/L Hospital L ab (Internal) : [address], [place] ? ? S ? Cl 100 mmol/L 98-107 Final [facility] mmol/L Hospital L ab (Internal) : [address] ? ? S ? Tco2 29.0 mmol/L 22.0-30.0 Final [facility] mmol/L Hospital L ab (Internal) : [address] t 11/04/2019 Hepatic S ? Tbil 0.5 mg/dL 0.2-1.3 Final N orth [place] Function mg/dL Hospital Lab Panel, (Internal) : Serum [address] ? ? S ? Dbil 0.2 mg/dL 0.0-0.3 Final [facility] mg/dL Hospital L ab (Internal) : [address] ? ? S High Alp 202 U/L 38-126 Final [facility] ntry U/L Hospital L ab (Internal) : [address] ? ? S High Alt 83 U/L 9-52 U/L Final [facility] (Sgpt) [facility] L ab (Internal) : [address] ? ? S High Ast 89 U/L 14-36 U/L Final [facility] (ot) [facility] L ab (Internal) : [address] ? ? S High Ggt 89 U/L 12-43 U/L [facility] L ab (Internal) : [address] ? ? S High Tp 8.6 g/dL 6.3-8.2 [facility] [place] [facility] g[facility] Hospital L ab (Internal) : [address] ? ? S ? Alb 4.5 g/dL 3.5-5.0 Final [facility] [place] [facility] g[facility]dL Hospital L ab (Internal) : [address] 11/04/2019 RBC BLD ? Aniso small ? Final [facility] Morpholog Hospita l Lab y, Blood (Interna l): [address] 07/28/2019 Bacteria N/A - Final microbiolog ? Final [facility] Identific y results Hosp ital Lab ation, (Internal) : Unspecifi [address], Dr t Specimen 07/28/2019 Bacteria N/A - Final microbiolog ? Final [facility] Identific y results Hosp ital Lab ation, (Internal) : Unspecifi [address] Specimen 07/28/2019 Pathology TISS - Report (see below) ? Kiah morataya [facility] Hospital L ab (Internal) : [address] t 07/28/2019 Fungus, MISC - Fungus no fungi ? Final No [facility]th [place] Culture, Smear seen Hospital Lab Unspecifi (Transplanter al): ed [address] Specimen Claude Sanchez ort ? ? MISC - Result no fungi ? Final [facility] isolated Hospital Lab (Internal) : [address] t 07/28/2019 Fungus, MISC - Fungus no fungi ? Final [place] Culture, Smear seen Hospital Lab Unspecifi (Transplanter al): ed [address] Specimen Claude Sanchez ort ? ? MISC - Result no fungi ? Final [facility] isolated Hospital Lab (Internal) : [address] Rik Sanchez t 07/28/2019 Culture, MISC ? Acid no acid ? Final [facility] [employer] Fast fast Hospital L ab (Acid-fas bacilli (Inter nal): t seen [address] Bacilli) Claude Sanchez ort ? ? MISC ? Result no ? Final [facility] acid-fast Hospita l Lab bacilli (Internal ): isolated [address] Rik Sanchez t 07/28/2019 Culture, MISC ? Acid no acid ? Final [facility] [employer] Fast fast Hospital L ab (Acid-fas bacilli (Inter nal): t seen [address] Bacilli) Claude Sanchez ort ? ? MISC ? Result no ? Final [facility] ntr acid-fast Hospita l Lab bacilli (Internal ): isolated [address] Daniel Sanchezsirena t 07/26/2019 Type + BLD - Abo O ? Final [facility] Screen, Hospital Lab Blood (Internal) : [address] t ? ? BLD - Rh positive ? Final [facility] Hospital L ab (Internal) : [address] t ? ? BLD - Ab negative negative Final [facility] Hospital L ab (Internal) : [address] t 07/26/2019 Crossmatc BLD - X-matc complete ? Final [facility] h, Lrc, # h, 2 U Hospita l Lab (Internal) : [address] SanchezRik t 06/28/2019 CBC W/ BLD - Wbc 5.5 10*3/uL 5.0-10.0 Final [facility] Auto Diff 10*3/uL Hospit al Lab (Internal) : [address] R[address] t ? ? BLD - Rbc 4.87 4.10-5.30 Final [facility] ountry 10*6/uL 10*6/uL Hospital Lab (Internal) : [address] t ? ? BLD - Hgb 13.8 g/dL 12.0-16.0 Final [facility] g/dL Hospital L ab (Internal) : [address] Rik t ? ? BLD - Hct 43.6 % 37.0-47.0 Final [facility] ount % Hospital L ab (Internal) : [address] Sanchez Rik t ? ? BLD - Mcv 89.5 fL 80.0-96.0 Final [facility] fL Hospital L ab (Internal) : [address] R[address] t ? ? BLD - Mch 28.3 pg 26.0-32.0 Final [facility] pg Hospital L ab (Internal) : [address] t ? ? BLD - Mchc 31.7 g/dL 31.0-35.0 Final [facility] g/dL Hospital L ab (Internal) : [address] t ? ? BLD - Rdw 13.6 % 11.5-14.5 Final [facility] ount % Hospital L ab (Internal) : [address] t ? ? BLD - Plt 291 10*3/uL 130-450 Final [facility] 10*3/uL Hospital Lab (Internal) : [address] t ? ? BLD - Anc 2.75 ? Final [facility] try 10*3/uL Hospital Lab (Internal) : [address] Danielsirena t ? ? BLD - Neutro 49.7 % 40.0-75.0 Final [facility] % Hospital L ab (Internal) : [address] t ? ? BLD - Lymph 33.4 % 20.0-50.0 Final [facility] % Hospital L ab (Internal) : [address] ? ? BLD - [place] 6.3 % 2.0-10.0 Final [facility] % Hospital L ab (Internal) : [address] ? ? BLD High Eos 9.9 % 1.0-6.0 % Final [facility] Hospital L ab (Internal) : [address] ? ? BLD - Baso 0.7 % 0.0-1.0 % Final [facility] Hospital L ab (Internal) : [address] ? ? BLD - Ig 0.0 % 0.0-0.9 % Final [facility] L ab (Internal) : [address] 06/28/2019 Iron, SERUM - Iron 70 ug/dL 37-170 Final [facility] Serum ug/dL Hospital L ab (Internal) : [address] t 06/28/2019 CMP, S High g/r 108 mg/dL 74-106 Final [facility] Serum or mg/dL Hospital Lab Plasma (Internal) : [address] ? ? S - Bun 11 mg/dL 7-17 Final [facility] mg/dL Hospital L ab (Internal) : [address] ? ? S Low Crea 0.50 mg/dL 0.52-1.04 Final [facility] mg/dL Hospital L ab (Internal) : [address] ? ? S - Ca 10.1 mg/dL 8.4-10.2 Final [facility] mg/dL Hospital L ab (Internal) : [address] ? ? S - Na 139 mmol/L 137-145 Final [facility] mmol/L Hospital L ab (Internal) : [address] ? ? S - K 4.4 mmol/L 3.5-5.1 Final [facility] mmol/L Hospital L ab (Internal) : [address] ? ? S - Cl 100 mmol/L 98-107 Final [facility] mmol/L Hospital L ab (Internal) : [address], Rik t ? ? S - Tco2 29.0 mmol/L 22.0-30.0 Final [place] mmol/L Hospital L ab (Internal) : [address] R[address] Sanchez t ? ? S High Tp 8.8 g/dL 6.3-8.2 Final [facility] ountry g/dL Hospital L ab (Internal) : [address] t ? ? S - Alb 4.4 g/dL 3.5-5.0 Final [facility] ountry g/dL Hospital L ab (Internal) : [address] t ? ? S - Tbil 0.5 mg/dL 0.2-1.3 Final [place] mg/dL Hospital L ab (Internal) : [address] t ? ? S - Alp 117 U/L 38-126 Final [facility] ntry U/L Hospital L ab (Internal) : [address] t ? ? S - Alt 15 U/L 9-52 U/L Final [facility] (Sgpt) Hospital L ab (Internal) : [address], Danielsirena t ? ? S High Ast 39 U/L 14-36 U/L Final [facility] Hospital L ab (Internal) : [address] 06/28/2019 CRP, High S High Rcrp 0.66 mg/dL 0.10-0.30 Fin al [place] Sensitivi mg/dL Hospita l Lab ty, Serum (Transplanter al): or Plasma [address] 06/28/2019 TIBC SERUM - Tibc 425 ug/dL 265-497 Final [place] [place] (Total ug/dL Hospital L ab Iron-bind (Transplanter al): ing [address] Capacity) Daniel Sanchez , Serum 06/28/2019 ESR BLD - Esr 22 mm/h 0-30 mm/h Final [place] (Erythroc Hospita l Lab yte (Internal) : Sedimenta [address] Rik Sanchez t Rate), Blood 06/28/2019 Rf BLD ABNORMAL Rf positive negative Final [place] (Rheumato [IU]/mL < 10 Hospit al Lab id [IU]/mL (Internal ): Factor), [address] Serum Rik Sanchez 06/28/2019 Rf BLD - Rfq 160 {titer} ? Final [place] (Rheumato Hospita l Lab id (Internal) : Factor), [address] Titer, Rik Sacnhez Serum 06/28/2019 TSH, S - Tsh 2.51 0.47-4.68 Final [facility] Serum or u[IU]/mL u[IU]/mL Hosp ital Lab Plasma (Internal) : [address] Rik Sanchez t 06/28/2019 Vitamin S High Vit >1000.0 239.0-931 Final N [facility] Country B12, B12 pg/mL .0 pg/mL Hospital Lab Serum (Internal) : [address] Rik Sanchez 06/28/2019 Folate, S - Folate 10.40 NG/mL 2.76-20.0 Fin al [facility] Serum 0 NG/mL Hospital Lab (Internal) : [address] Sanchez 06/28/2019 Ferritin, S - Ferr 18 NG/mL 11-264 Final N [facility] Serum or NG/mL Hospital Lab Plasma (Internal) : [address] Rik Sanchez 06/28/2019 Extractab S - ss-A/R <0.2 U <1.0 Final [place] [place] le O Ab, (negative Hospita l Lab Nuclear IgG, S ) U (Internal ): Ab, QN, [address] Serum Rki Sanchez ? ? S - ss-B/l <0.2 U <1.0 Final [place] a Ab, (negative Hospita l Lab IgG, S ) U (Internal) : [address] Rik Sanchez ? ? S - Sm Ab, <0.2 U <1.0 Final [place] IgG, S (negative Hospita l Lab ) U (Internal) : [address] Rik Sanchez ? ? S High Telegraphic Instrument Supervisor 2.7 U <1.0 Final [place] try Ab, (negative Hospita l Lab IgG, S ) U (Internal) : [address] Rik Sanchez ? ? S - Scl 70 <0.2 U <1.0 Final [place] Ab, (negative Hospita l Lab IgG, S ) U (Internal) : [address] R[address] Sanchez t ? ? S - Rabia 1 <0.2 U <1.0 Final [facility] try Ab, (negative Hospita l Lab IgG, S ) U (Internal) : [address] Rik gonzalez 06/28/2019 CRISTOFER S ABNORMAL CRISTOFER positive negative Final [facility] (Antinucl Interpr Hospit al Lab ear etation (Internal ): Antibodie [address]) Dr iRk gonzalez Screen, Serum ? ? S - Antibo 1:320 ? Final [facility] ntry dy speckled Hospital Lab Titer (Internal) : Pattern [address] Rik gonzalez 06/28/2019 Cyclic S - Cyclic <15.6 U <20.0 Final [facility] Citrullin Citrull (negative Hos pital Lab ated inated ) U (Internal) : Peptide Peptide [address] Ab, Quant Ab, S Dr [facility] Immunoass ay, Serum 06/19/2019 CBC W/ BLD - Wbc 6.7 10*3/uL 5.0-10.0 Final [facility] Auto Diff 10*3/uL Hospit al Lab (Internal) : [address] Rik gonzalez ? ? BLD - Rbc 4.67 4.10-5.30 Final [facility] ountry 10*6/uL 10*6/uL Hospital Lab (Internal) : [address] carlos ? ? BLD - Hgb 13.1 g/dL 12.0-16.0 Final [facility] g/dL Hospital L ab (Internal) : [address] Drsirena gonzalez ? ? BLD - Hct 41.3 % 37.0-47.0 Final [facility] % Hospital L ab (Internal) : [address] carlos ? ? BLD - Mcv 88.4 fL 80.0-96.0 Final [facility] fL Hospital L ab (Internal) : [address] carlos ? ? BLD - Mch 28.1 pg 26.0-32.0 Final [facility] pg Hospital L ab (Internal) : [address] carlos ? ? BLD - Mchc 31.7 g/dL 31.0-35.0 Final [facility] g/dL Hospital L ab (Internal) : [address], [place] ? ? BLD - Rdw 14.1 % 11.5-14.5 Final [facility] % Hospital L ab (Internal) : [address], Rik t ? ? BLD - Plt 235 10*3/uL 130-450 Final [facility] 10*3/uL Hospital Lab (Internal) : [address] R[address] t ? ? BLD - Anc 3.12 ? Final [facility] try 10*3/uL Hospital Lab (Internal) : [address] Rik t ? ? BLD - Neutro 46.6 % 40.0-75.0 Final [facility] % Hospital L ab (Internal) : [address] t ? ? BLD - Lymph 35.6 % 20.0-50.0 Final [facility] % Hospital L ab (Internal) : [address] Sanchez Danielsirena t ? ? BLD - [place] 8.3 % 2.0-10.0 Final [facility] % Hospital L ab (Internal) : [address] t ? ? BLD High Eos 8.8 % 1.0-6.0 % Final [facility] L ab (Internal) : [address] Danielsirena t ? ? BLD - Baso 0.6 % 0.0-1.0 % Final [facility] L ab (Internal) : [address] Danielsirena t ? ? BLD - Ig 0.1 % 0.0-0.9 % Final [facility] L ab (Internal) : [address] 06/19/2019 CMP, S - g/r 102 mg/dL 74-106 Final [facility] Serum or mg/dL Hospital Lab Plasma (Internal) : [address] ? ? S High Bun 19 mg/dL 7-17 Final [facility] mg/dL Hospital L ab (Internal) : [address] t ? ? S - Crea 0.60 mg/dL 0.52-1.04 Final [facility] mg/dL Hospital L ab (Internal) : [address] t ? ? S - Ca 9.4 mg/dL 8.4-10.2 Final [facility] mg/dL Hospital L ab (Internal) : [address] t ? ? S - Na 138 mmol/L 137-145 Final [facility] mmol/L Hospital L ab (Internal) : [address] ? ? S - K 4.2 mmol/L 3.5-5.1 Final [facility] mmol/L Hospital L ab (Internal) : [address] ? ? S - Cl 102 mmol/L 98-107 Final [facility] mmol/L Hospital L ab (Internal) : [address] t ? ? S - Tco2 28.0 mmol/L 22.0-30.0 Final [place] mmol/L Hospital L ab (Internal) : [address] ? ? S High Tp 8.3 g/dL 6.3-8.2 Final [facility] ount g/dL Hospital L ab (Internal) : [address] ? ? S - Alb 4.2 g/dL 3.5-5.0 Final [facility] ountry g/dL Hospital L ab (Internal) : [address] ? ? S - Tbil 0.5 mg/dL 0.2-1.3 Final [facility] mg/dL Hospital L ab (Internal) : [address] ? ? S - Alp 84 U/L 38-126 Final [facility] try U/L Hospital L ab (Internal) : [address] ? ? S - Alt 11 U/L 9-52 U/L Final [facility] (Sgpt) Hospital L ab (Internal) : [address] t ? ? S High Ast 40 U/L 14-36 U/L Final [facility] (Sgot) Hospital L ab (Internal) : [address] 06/19/2019 CK S - Cpk 67 U/L 30-135 Final [facility] (Creatine U/L Hospita l Lab Kinase), (Interna l): Total, [address] Serum Rik Sanchez 06/19/2019 Magnesium S - mg 2.1 mg/dL 1.6-2.3 Final [facility] , QN, mg/dL Hospital L ab Serum or (Interna l): Plasma [address] Sanchez Danielsirena 06/19/2019 Partial BLD Low PTT 21 s 22-35 s Final [facility] Thrombopl (Ip) Hospita l Lab astin (Internal) : Time [address] Sanchez Danielsirena 06/19/2019 Prothromb BLD - Pt 10.2 S 9.1-11.7 Final [place] in Time S Hospital Lab (Internal) : [address] ? ? BLD - Inr 1.0 ? Final [facility] try Hospital L ab (Internal) : [address] 06/19/2019 Troponin S - Trop <0.06 NG/mL 0.00-0.06 Fin al [place] I, Serum NG/mL Hospital Lab or Plasma (Transplanter al): [address] 12/09/2018 CMP, S - g/r 89 mg/dL 74-106 Final [facility] Serum or mg/dL Hospital Lab Plasma (Internal) : [address] ? ? S - Bun 13 mg/dL 7-17 Final [facility] untry mg/dL Hospital L ab (Internal) : [address] ? ? S Low Crea 0.50 mg/dL 0.52-1.04 Final [facility] mg/dL Hospital L ab (Internal) : [address] ? ? S - Ca 9.2 mg/dL 8.4-10.2 Final [facility] mg/dL Hospital L ab (Internal) : [address] ? ? S - Na 137 mmol/L 137-145 Final [facility] mmol/L Hospital L ab (Internal) : [address] ? ? S - K 4.0 mmol/L 3.5-5.1 Final [facility] mmol/L Hospital L ab (Internal) : [address] t ? ? S - Cl 101 mmol/L 98-107 Final [facility] mmol/L Hospital L ab (Internal) : [address] t ? ? S - Tco2 30.0 mmol/L 22.0-30.0 Final No [facility] mmol/L Hospital L ab (Internal) : [address] t ? ? S - Tp 7.7 g/dL 6.3-8.2 Final [facility] ountry g/dL Hospital L ab (Internal) : [address] ? ? S - Alb 4.0 g/dL 3.5-5.0 Final [facility] ountry g/dL Hospital L ab (Internal) : [address] ? ? S - Tbil 0.4 mg/dL 0.2-1.3 Final [place] mg/dL Hospital L ab (Internal) : [address] t ? ? S - Alp 83 U/L 38-126 Final [place] try U/L Hospital L ab (Internal) : [address] ? ? S - Alt 12 U/L 9-52 U/L Final [facility] untry (Sgpt) Hospital L ab (Internal) : [address] carlos ? ? S - Ast 33 U/L 14-36 U/L Final [facility] ount (Sgot) Hospital L ab (Internal) : [address] 12/09/2018 Lipid S - Chol 152 mg/dL 50-200 Final [facility] Panel, mg/dL Hospital L ab Serum (Internal) : [address] ? ? S - Trig 60 mg/dL 10-150 Final [facility] untry mg/dL Hospital L ab (Internal) : [address] ? ? S High Hdl 70 mg/dL 40-60 Final [facility] untry mg/dL Hospital L ab (Internal) : [address] ? ? S - Ldl 70 mg/dL 0-130 Final [facility] untry mg/dL Hospital L ab (Internal) : [address] 12/09/2018 CBC W/ BLD - Wbc 6.0 10*3/uL 5.0-10.0 Final [facility] Auto Diff 10*3/uL Hospit al Lab (Internal) : [address] ? ? BLD - Rbc 4.51 4.10-5.30 Final [facility] ountry 10*6/uL 10*6/uL Hospital Lab (Internal) : [address] ? ? BLD - Hgb 12.9 g/dL 12.0-16.0 Final [facility] g/dL Hospital L ab (Internal) : [address] ? ? BLD - Hct 41.6 % 37.0-47.0 Final [facility] ountry % Hospital L ab (Internal) : [address] ? ? BLD - Mcv 92.2 fL 80.0-96.0 Final [facility] fL Hospital L ab (Internal) : [address] ? ? BLD - Mch 28.6 pg 26.0-32.0 Final [facility] pg Hospital L ab (Internal) : [address] ? ? BLD - Mchc 31.0 g/dL 31.0-35.0 Final [facility] g/dL Hospital L ab (Internal) : [address] ? ? BLD - Rdw 13.2 % 11.5-14.5 Final [facility] ount % Hospital L ab (Internal) : [address] ? ? BLD - Plt 250 10*3/uL 130-450 [facility] 10*3/uL Hospital Lab (Internal) : [address] 12/09/2018 Different BLD Low Polys 39 % 40-75 % Final [place] [facility] [place] ial, Hospital L ab Manual, (Internal ): Blood [address] ? ? BLD - Bands 0 % 0-5 % Final [facility] Hospital L ab (Internal) : [address] ? ? BLD - Lymphs 44 % 20-50 % Final [facility] untry Hospital L ab (Internal) : [address] ? ? BLD - [place] 3 % 2-10 % Final [facility] Hospital L ab (Internal) : [address] ? ? BLD High Eos 13 % 0-6 % Final [facility] Hospital L ab (Internal) : [address] ? ? BLD - Baso 1 % 0-1 % Final [facility] Hospital L ab (Internal) : [address] ? ? BLD - Atyp 0 % ? Final [place] try Lymph Hospital L ab (Internal) : [address] Drsi[address] ? ? BLD - Plts, adequate adequate Final [facility] Est. Hospital L ab (Internal) : [address] ? ? BLD - RBC normal normal Final [facility] try Morphol Hospital Lab ogy (Internal) : [address] R[address] 12/09/2018 Neutrophi BLD - Anc-ma 2.32 ? Final [place] [place] l Count, nual 10*3/uL Hospita l Lab Absolute (Interna l): (Anc), [address] Blood Rik 12/09/2018 TSH, S - Tsh 1.66 0.47-4.68 Final [facility] Serum or u[IU]/mL u[IU]/mL Hosp ital Lab Plasma (Internal) : [address] SanchezRik 10/06/2018 Partial BLD High PTT 43 s 22-35 s Final [facility] Thrombopl (Ip) Hospita l Lab astin (Internal) : Time [address], Rik 10/06/2018 CBC W/ BLD - Wbc 7.6 10*3/uL 5.0-10.0 Final [facility] Auto Diff 10*3/uL Hospit al Lab (Internal) : [address] Sanchez Danielsirena ? ? BLD - Rbc 4.30 4.10-5.30 Final [facility] ountry 10*6/uL 10*6/uL Hospital Lab (Internal) : [address] carlos ? ? BLD - Hgb 12.4 g/dL 12.0-16.0 Final [facility] g/dL Hospital L ab (Internal) : [address] carlos ? ? BLD - Hct 39.8 % 37.0-47.0 Final [facility] ountry % Hospital L ab (Internal) : [address] ? ? BLD - Mcv 92.6 fL 80.0-96.0 Final [facility] fL Hospital L ab (Internal) : [address] carlos ? ? BLD - Mch 28.8 pg 26.0-32.0 Final [facility] pg Hospital L ab (Internal) : [address] ? ? BLD - Mchc 31.2 g/dL 31.0-35.0 Final [facility] g/dL Hospital L ab (Internal) : [address] ? ? BLD - Rdw 14.0 % 11.5-14.5 Final [facility] Hospital L ab (Internal) : [address] R[address] ? ? BLD - Plt 167 10*3/uL 130-450 Final [facility] 10*3/uL Hospital Lab (Internal) : [address] Rik gonzalez ? ? BLD - Anc 4.36 ? Final [place] try 10*3/uL Hospital Lab (Internal) : [address] gonzalez ? ? BLD - Neutro 57.5 % 40.0-75.0 Final [facility] % Hospital L ab (Internal) : [address] Danielsirena carlos ? ? BLD - Lymph 31.0 % 20.0-50.0 Final [facility] % Hospital L ab (Internal) : [address] carlos ? ? BLD - [place] 8.1 % 2.0-10.0 Final [facility] % Hospital L ab (Internal) : [address] R[address] gonzalez ? ? BLD - Eos 2.4 % 1.0-6.0 % Final [facility] L ab (Internal) : [address] Danielsirena carlos ? ? BLD - Baso 0.7 % 0.0-1.0 % Final [facility] Hospital L ab (Internal) : [address] Danielsirena carlos ? ? BLD - Ig 0.3 % 0.0-0.9 % Final [facility] L ab (Internal) : [address] 10/06/2018 CMP, S - g/r 97 mg/dL 74-106 Final [facility] Serum or mg/dL Hospital Lab Plasma (Internal) : [address] ? ? S - Bun 17 mg/dL 7-17 Final [facility] mg/dL Hospital L ab (Internal) : [address] ? ? S - Crea 0.70 mg/dL 0.52-1.04 Final [facility] mg/dL Hospital L ab (Internal) : [address] t ? ? S - Ca 8.7 mg/dL 8.4-10.2 Final [facility] mg/dL Hospital L ab (Internal) : [address] ? ? S - Na 140 mmol/L 137-145 Final [facility] mmol/L Hospital L ab (Internal) : [address] ? ? S - K 4.4 mmol/L 3.5-5.1 Final [facility] mmol/L Hospital L ab (Internal) : [address] ? ? S - Cl 104 mmol/L 98-107 Final [facility] mmol/L Hospital L ab (Internal) : [address] ? ? S High Tco2 31.0 mmol/L 22.0-30.0 Final [place] [facility] [place] mmol/L Hospital L ab (Internal) : [address] ? ? S - Tp 6.7 g/dL 6.3-8.2 Final [facility] ount g/dL Hospital L ab (Internal) : [address] ? ? S - Alb 3.5 g/dL 3.5-5.0 Final [facility] ountry g/dL Hospital L ab (Internal) : [address] ? ? S - Tbil 0.3 mg/dL 0.2-1.3 Final [facility] mg/dL Hospital L ab (Internal) : [address] ? ? S - Alp 67 U/L 38-126 Final [place] try U/L Hospital L ab (Internal) : [address] ? ? S - Alt 15 U/L 9-52 U/L Final [facility] unt (Sgpt) Hospital L ab (Internal) : [address] ? ? S - Ast 32 U/L 14-36 U/L Final [facility] (Sgot) Hospital L ab (Internal) : [address] Rik gonzalez 10/06/2018 Partial BLD High PTT 43 s 22-35 s Final [place] Thrombopl (Ip) Hospita l Lab astin (Internal) : Time [address] Rik gonzalez 10/06/2018 TSH, S - Tsh 1.22 0.47-4.68 Final [facility] Serum or u[IU]/mL u[IU]/mL Hosp ital Lab Plasma (Internal) : [address] 10/06/2018 Fecal STL ABNORMAL Occ positive negative Final [facility] Occult Bld Hospital L ab Blood, (Internal) : Stool [address] 10/05/2018 Troponin S - Trop <0.06 NG/mL 0.00-0.06 Fin al [facility] I, Serum NG/mL Hospital Lab or Plasma (Transplanter al): [address] 10/05/2018 CBC W/ BLD - Wbc 9.1 10*3/uL 5.0-10.0 Final [facility] Auto Diff 10*3/uL Hospit al Lab (Internal) : [address] ? ? BLD - Rbc 4.16 4.10-5.30 Final [facility] ountry 10*6/uL 10*6/uL Hospital Lab (Internal) : [address] Rik gonzalez ? ? BLD - Hgb 12.1 g/dL 12.0-16.0 Final [facility] g/dL Hospital L ab (Internal) : [address] ? ? BLD - Hct 38.2 % 37.0-47.0 Final [facility] ount % Hospital L ab (Internal) : [address] ? ? BLD - Mcv 91.8 fL 80.0-96.0 Final [facility] fL Hospital L ab (Internal) : [address] Rik gonzalez ? ? BLD - Mch 29.1 pg 26.0-32.0 Final [facility] pg Hospital L ab (Internal) : [address] Rik gonzalez ? ? BLD - Mchc 31.7 g/dL 31.0-35.0 Final [facility] g/dL Hospital L ab (Internal) : [address] Rik gonzalez ? ? BLD - Rdw 13.7 % 11.5-14.5 Final [facility] ount % Hospital L ab (Internal) : [address] Rik gonzalez ? ? BLD - Plt 198 10*3/uL 130-450 Final [facility] 10*3/uL Hospital Lab (Internal) : [address] ? ? BLD - Anc 6.60 ? Final [place] try 10*3/uL Hospital Lab (Internal) : [address] ? ? BLD - Neutro 72.4 % 40.0-75.0 Final [facility] Hospital L ab (Internal) : [address] ? ? BLD Low Lymph 16.9 % 20.0-50.[address] [facility] Hospital L ab (Internal) : [address] ? ? BLD - [place] 9.6 % 2.0-10.0 Final [facility] Hospital L ab (Internal) : [address] ? ? BLD Low Eos 0.3 % 1.0-6.0 % Final [facility] L ab (Internal) : [address] ? ? BLD - Baso 0.4 % 0.0-1.0 % Final [facility] L ab (Internal) : [address] ? ? BLD - Ig 0.4 % 0.0-0.9 % Final [facility] L ab (Internal) : [address] 10/05/2018 Partial BLD - PTT 32 s 22-35 s Final [facility] Thrombopl (Ip) Hospita l Lab astin (Internal) : Time [address] 2018 CBC W/ BLD - Wbc 5.8 10*3/uL 5.0-10.0 Final [facility] Auto Diff 10*3/uL Hospit al Lab (Internal) : [address] gonzalez ? ? BLD - Rbc 4.57 4.10-5.30 Final [facility] ountry 10*6/uL 10*6/uL Hospital Lab (Internal) : [address] Rik gonzalez ? ? BLD - Hgb 13.2 g/dL 12.0-16.0 Final [facility] g/dL Hospital L ab (Internal) : [address] R[address] gonzalez ? ? BLD - Hct 41.2 % 37.0-47.0 Final [place] Hospital L ab (Internal) : [address] ? ? BLD - Mcv 90.2 fL 80.0-96.0 Final [facility] fL Hospital L ab (Internal) : [address] ? ? BLD - Mch 28.9 pg 26.0-32.0 Final [facility] pg Hospital L ab (Internal) : [address] ? ? BLD - Mchc 32.0 g/dL 31.0-35.0 Final [facility] g/dL Hospital L ab (Internal) : [address] ? ? BLD - Rdw 14.3 % 11.5-14.5 Final [place] [facility] [place] % Hospital L ab (Internal) : [address] ? ? BLD - Plt 190 10*3/uL 130-450 Final [facility] 10*3/uL Hospital Lab (Internal) : [address] 2018 CMP, S - g/r 87 mg/dL 74-106 Final [facility] Serum or mg/dL Hospital Lab Plasma (Internal) : [address] ? ? S - Bun 11 mg/dL 7-17 Final [facility] untry mg/dL Hospital L ab (Internal) : [address] ? ? S - Crea 0.70 mg/dL 0.52-1.04 Final [facility] mg/dL Hospital L ab (Internal) : [address] ? ? S - Ca 9.1 mg/dL 8.4-10.2 Final [facility] mg/dL Hospital L ab (Internal) : [address] ? ? S - Na 140 mmol/L 137-145 Final [facility] mmol/L Hospital L ab (Internal) : [address] ? ? S - K 3.9 mmol/L 3.5-5.1 Final [place] mmol/L Hospital L ab (Internal) : [address] ? ? S - Cl 102 mmol/L 98-107 Final [facility] mmol/L Hospital L ab (Internal) : [address] ? ? S - Tco2 29.0 mmol/L 22.0-30.0 [place] mmol/L Hospital L ab (Internal) : [address] ? ? S - Tp 7.5 g/dL 6.3-8.2 Final [facility]ry g/dL Hospital L ab (Internal) : [address] ? ? S - Alb 4.2 g/dL 3.5-5.0 Final [facility] g/dL Hospital L ab (Internal) : [address] ? ? S - Tbil 0.5 mg/dL 0.2-1.3 Final [facility] mg/dL Hospital L ab (Internal) : [address] ? ? S - Alp 67 U/L 38-126 Final [facility] try U/L Hospital L ab (Internal) : [address] ? ? S - Alt 21 U/L 9-52 U/L [facility] : [address] ? ? S High Ast 38 U/L 14-36 U/L Final [facility] ount[facility] (Sgot) Hospital L ab (Internal) : [address] 2018 Different BLD - Polys 43 % 40-75 % Final [place] ial, Hospital L ab Manual, (Internal ): Blood [address] ? ? BLD - Bands 0 % 0-5 % Final [facility] try Hospital L ab (Internal) : [address] ? ? BLD - Lymphs 32 % 20-50 % [facility] : [address] ? ? BLD High [place] 11 % 2-10 % Final [place] [facility] try Hospital L ab (Internal) : [address] ? ? BLD High Eos 14 % 0-6 % Final [place] [facility] try Hospital L ab (Internal) : [address] ? ? BLD - Baso 0 % 0-1 % Final [place] [facility] try Hospital L ab (Internal) : [address] ? ? BLD - Atyp 0 % ? Final [place] [facility] try Lymph Hospital L ab (Internal) : [address] carlos ? ? BLD - Plts, adequate adequate Final [facility] Est. Hospital L ab (Internal) : [address] carlos ? ? BLD - RBC normal normal Final [facility] try Morphol Hospital Lab ogy (Internal) : [address] 2018 Neutrophi BLD - Anc-ma 2.50 ? Final [place] l Count, nual 10*3/uL Hospita l Lab Absolute (Interna l): (Anc), [address] 2018 Troponin S - Trop <0.06 NG/mL 0.00-0.06 Fin al [facility] I, Serum NG/mL Hospital Lab or Plasma (Transplanter al): [address] 2018 D-dimer, PLASMA High Dimq 0.56 mg/L 0.00-0.50 Corre cted [facility] Quant, mg/L Hospital L ab Plasma (Internal) : [address] 2018 Troponin S - Trop <0.06 NG/mL 0.00-0.06 Fin al [facility] I, Serum NG/mL Hospital Lab or Plasma (Transplanter al): [address] 04/02/2018 CBC W/ BLD - Wbc 6.9 10*3/uL 5.0-10.0 Final [facility] Auto Diff 10*3/uL Hospit al Lab (Internal) : [address] ? ? BLD - Rbc 5.21 4.10-5.30 Final [facility] 10*6/uL 10*6/uL Hospital Lab (Internal) : [address] ? ? BLD - Hgb 14.5 g/dL 12.0-16.0 Final [place] g/dL Hospital L ab (Internal) : [address] ? ? BLD - Hct 46.1 % 37.0-47.0 Final [facility] % Hospital L ab (Internal) : [address] ? ? BLD - Mcv 88.5 fL 80.0-96.0 Final [facility] fL Hospital L ab (Internal) : [address] ? ? BLD - Mch 27.8 pg 26.0-32.0 Final [facility] pg Hospital L ab (Internal) : [address] ? ? BLD - Mchc 31.5 g/dL 31.0-35.0 Final [facility] g/dL Hospital L ab (Internal) : [address] ? ? BLD - Rdw 14.1 % 11.5-14.5 Final [facility] % Hospital L ab (Internal) : [address] ? ? BLD - Plt 243 10*3/uL 130-450 Final [facility] 10*3/uL Hospital Lab (Internal) : [address] ? ? BLD - Anc 3.80 ? Final [facility] try 10*3/uL Hospital Lab (Internal) : [address] ? ? BLD - Neutro 55.0 % 40.0-75.0 Final [facility] % Hospital L ab (Internal) : [address] ? ? BLD - Lymph 32.5 % 20.0-50.0 Final [facility] ount % Hospital L ab (Internal) : [address] ? ? BLD - [place] 7.1 % 2.0-10.0 Final [facility] untry % Hospital L ab (Internal) : [address] ? ? BLD - Eos 4.6 % 1.0-6.0 % Final [facility] Hospital L ab (Internal) : [address] ? ? BLD - Baso 0.7 % 0.0-1.0 % Final [facility] Hospital L ab (Internal) : [address] ? ? BLD - Ig 0.1 % 0.0-0.9 % Final [facility] Hospital L ab (Internal) : [address] 04/02/2018 CMP, S High g/r 110 mg/dL 74-106 Final [facility] Serum or mg/dL Hospital Lab Plasma (Internal) : [address] ? ? S - Bun 12 mg/dL 7-17 Final [place] mg/dL Hospital L ab (Internal) : [address] t ? ? S - Crea 0.70 mg/dL 0.52-1.04 Final [facility] mg/dL Hospital L ab (Internal) : [address] t ? ? S - Ca 9.9 mg/dL 8.4-10.2 Final [facility] mg/dL Hospital L ab (Internal) : [address] t ? ? S - Na 142 mmol/L 137-145 Final [facility] mmol/L Hospital L ab (Internal) : [address] ? ? S - K 3.6 mmol/L 3.5-5.1 Final [facility] mmol/L Hospital L ab (Internal) : [address] t ? ? S - Cl 103 mmol/L 98-107 Final [facility] mmol/L Hospital L ab (Internal) : [address] t ? ? S - Tco2 29.0 mmol/L 22.0-30.0 Final [place] mmol/L Hospital L ab (Internal) : [address] t ? ? S High Tp 9.1 g/dL 6.3-8.2 Final [facility] g/dL Hospital L ab (Internal) : [address] t ? ? S High Alb 5.1 g/dL 3.5-5.0 Final [facility] g/dL Hospital L ab (Internal) : [address] t ? ? S - Tbil 0.4 mg/dL 0.2-1.3 Final [facility] mg/dL Hospital L ab (Internal) : [address] t ? ? S - Alp 94 U/L 38-126 Final [place] [facility] try U/L Hospital L ab (Internal) : [address] ? ? S - Alt 14 U/L 9-52 U/L Final [place] (Sgpt) Hospital L ab (Internal) : [address] t ? ? S High Ast 38 U/L 14-36 U/L Final [place] [facility] (Sgot) Hospital L ab (Internal) : [address] 04/02/2018 Partial BLD Low PTT 21 s 22-35 s Final [facility] Thrombopl (Ip) Hospita l Lab astin (Internal) : Time [address] 04/02/2018 Prothromb BLD - Pt 10.2 S 9.1-11.7 Final [facility] in Time S Hospital Lab (Internal) : [address] ? ? BLD - Inr 1.0 ? Final [facility] try Hospital L ab (Internal) : [address] 04/02/2018 D-dimer, PLASMA - Dimq 0.35 mg/L 0.00-0.50 Final [facility] Quant, mg/L Hospital L ab Plasma (Internal) : [address] 04/02/2018 Troponin S - Trop <0.06 NG/mL 0.00-0.06 Fin [facility] I, Serum NG/mL Hospital Lab or Plasma (Transplanter al): [address] 04/24/2017 Iron, SERUM ? Iron 61 ug/dL 37-170 Final [facility] Serum ug/dL Hospital L ab (Internal) : [address] 04/24/2017 CBC W/ BLD ? Wbc 6.8 10*3/uL 5.0-10.0 Final [facility] Auto Diff 10*3/uL Hospit al Lab (Internal) : [address] ? ? BLD ? Rbc 4.31 4.10-5.30 Final [facility] o[facility] 10*6/uL 10*6/uL Hospital Lab (Internal) : [address] carlos ? ? BLD ? Hgb 12.9 g/dL 12.0-16.0 Final [facility] g/dL Hospital L ab (Internal) : [address] carlos ? ? BLD ? Hct 39.9 % 37.0-47.0 Final [facility] ount % Hospital L ab (Internal) : [address] ? ? BLD ? Mcv 92.6 fL 80.0-96.0 Final [facility] fL Hospital L ab (Internal) : [address] ? ? BLD ? Mch 29.9 pg 26.0-32.0 Final [facility] pg Hospital L ab (Internal) : [address] ? ? BLD ? Mchc 32.3 g/dL 31.0-35.0 Final [facility] g/dL Hospital L ab (Internal) : [address] ? ? BLD ? Rdw 14.5 % 11.5-14.5 Final [facility] % Hospital L ab (Internal) : [address] t ? ? BLD ? Plt 214 10*3/uL 130-450 Final [facility] 10*3/uL Hospital Lab (Internal) : [address] t ? ? BLD ? Anc 3.79 ? Final [facility] try 10*3/uL Hospital Lab (Internal) : [address] Danielsirena t ? ? BLD ? Neutro 56.0 % 40.0-75.0 Final [facility] % Hospital L ab (Internal) : [address] ? ? BLD ? Lymph 30.9 % 20.0-50.0 Final [facility] % Hospital L ab (Internal) : [address] Daniel[address]rena t ? ? BLD ? [place] 8.1 % 2.0-10.0 Final [facility] % Hospital L ab (Internal) : [address] R[address] t ? ? BLD ? Eos 4.0 % 1.0-6.0 % Final [facility] Hospital L ab (Internal) : [address] ? ? BLD ? Baso 0.7 % 0.0-1.0 % Final [facility] Hospital L ab (Internal) : [address] Danielsirena t ? ? BLD ? Ig 0.3 % 0.0-0.9 % Final [facility] Hospital L ab (Internal) : [address] 04/24/2017 TSH, S ? Tsh 0.84 0.47-4.68 Final [facility] Serum or u[IU]/mL u[IU]/mL Hosp ital Lab Plasma (Internal) : [address] t 04/24/2017 ESR BLD ? Esr 10 mm/h 0-30 mm/h Final [place] (Erythroc Hospita l Lab yte (Internal) : [place] [address] Blood 04/24/2017 Vitamin S ? Vit 309.0 pg/mL 239.0-931 Kiah l [place] B12, B12 .0 pg/mL Hospital Lab Serum (Internal) : [address] t 04/24/2017 Folate, S ? Folate 14.20 NG/mL 2.76-20.0 Fin al [facility] Serum 0 NG/mL Hospital Lab (Internal) : [address] t 04/24/2017 Ldh, S ? Ldh 571 U/L 313-618 Final [facility] Serum or U/L Hospital Lab Plasma (Internal) : [address] t 04/24/2017 Ferritin, S Low Ferr 9 NG/mL 11-264 Final [place] Serum or NG/mL Hospital Lab Plasma (Internal) : [address] 04/24/2017 CMP, S ? g/r 90 mg/dL 74-106 Final [facility] Serum or mg/dL Hospital Lab Plasma (Internal) : [address] t ? ? S ? Bun 15 mg/dL 7-17 Final [place] mg/dL Hospital L ab (Internal) : [address] t ? ? S ? Crea 0.60 mg/dL 0.52-1.04 Final [facility] mg/dL Hospital L ab (Internal) : [address] t ? ? S ? Ca 9.1 mg/dL 8.4-10.2 Final [facility] mg/dL Hospital L ab (Internal) : [address] t ? ? S ? Na 138 mmol/L 137-145 Final [place] mmol/L Hospital L ab (Internal) : [address] t ? ? S ? K 4.1 mmol/L 3.5-5.1 Final [place] mmol/L Hospital L ab (Internal) : [address] t ? ? S ? Cl 100 mmol/L 98-107 Final [place] mmol/L Hospital L ab (Internal) : [address] t ? ? S ? Tco2 27.0 mmol/L 22.0-30.0 Final [place] mmol/L Hospital L ab (Internal) : [address] t ? ? S ? Tp 7.6 g/dL 6.3-8.2 Final [facility] g/dL Hospital L ab (Internal) : [address] t ? ? S ? Alb 4.4 g/dL 3.5-5.0 Final [facility] g/dL Hospital L ab (Internal) : [address] ? ? S ? Tbil 0.6 mg/dL 0.2-1.3 Final [facility] mg/dL Hospital L ab (Internal) : [address] ? ? S ? Alp 87 U/L 38-126 Final [facility] try U/L Hospital L ab (Internal) : [address] ? ? S ? Alt 24 U/L 9-52 U/L Final [facility] unt (Sgpt) Hospital L ab (Internal) : [address] ? ? S High Ast 44 U/L 14-36 U/L Final [facility] (Sgot) Hospital L ab (Internal) : [address] t Past Encounters 05/31/2021 Fibromyalgia; Diffuse Interstitial Pulmo nary Fibrosis; Hypertensive Disorder Herbert Azevedo MD: [address] [place] [address], Ph. 04/20/2021 Fibromyalgia; Medication Monitoring; Chr onic Obstructive Lung Disease Herbert Azevedo MD: [address] [place] [address], Ph. 04/17/2021 Essential Hypertension; History of Cereb rovascular Accident Kiley Yarbrough MD: [address] [place] [address], Ph. 03/02/2021 Pain in Pelvis Felipa Arevalo, ELECTROPHYSIOLOGY SCIENTIST: [address] [place] [address], Ph. 02/13/2021 Essential Hypertension; History of Cereb rovascular Accident Kiley Yarbrough MD: [address] [place] [address], Ph. 02/02/2021 Fibromyalgia; Medication Monitoring Herbert Azevedo MD: [address] [place] [address], [place] [address], Ph. 01/23/2021 Chronic Diarrhea; Anemia; Abnormal Weigh t Loss Herbert Azevedo MD: [address] [place] [address], [place] [address], Ph. 01/01/2021 Acute Bronchitis; Moderate Chronic Obstr uctive Pulmonary Disease Herbert Azevedo MD: [address] [place] [address], [place] [address], Ph. 12/15/2020 Transient Cerebral Ischemia; Atypical Ch est Pain; Diffuse Interstitial Pulmonary Fibrosis Herbert Azevedo MD: [address] [place] [address], [place] [address], Ph. 11/15/2020 Diffuse Interstitial Pulmonary Fibrosis Netta Knight MD: [address], [place] [address], Ph. 11/09/2020 Fibromyalgia; Medication Monitoring; Dif fuse Interstitial Pulmonary Fibrosis Herbert Azevedo MD: [address] [place] [address], [place] [address], Ph. 10/19/2020 Diffuse Interstitial Pulmonary Fibrosis Netta Knight MD: [address] [place] [address], Ph. 08/17/2020 Fibromyalgia; Medication Monitoring; Inc reased Frequency of Urination; Acute Bronchitis; Generalized Abdominal Pain Herbert Azevedo MD: [address] [place] [address], [place] [address], Ph. 07/31/2020 Diffuse Interstitial Pulmonary Fibrosis Netta Knight MD: [address] [place] [address], Ph. 07/20/2020 Diffuse Interstitial Pulmonary Fibrosis Netta Knight MD: [address] [place] [address], Ph. 06/22/2020 Diffuse Interstitial Pulmonary Fibrosis Felipa Arevalo [facility]: [address] [place] [address], Ph. 05/25/2020 Fibromyalgia; Medication Monitoring; [place] Allergic Rhinitis; Dysuria; Influenza Vaccine Needed Herbert Azevedo MD: [address] [place] [address], Ph. 04/20/2020 Diffuse Interstitial Pulmonary Fibrosis Netta Knight MD: [address] [place] [address], Ph. 04/03/2020 Fibromyalgia; Abnormal Weight Loss Herbert Azevedo MD: [address] [place] [address], Ph. 03/13/2020 Diffuse Interstitial Pulmonary Fibrosis Netta Knight MD: [address], [place] [address], Ph. 02/02/2020 Diffuse Interstitial Pulmonary Fibrosis Netta Knight MD: [address], [place] [address], Ph. 01/31/2020 Abnormal Weight Loss; Diffuse Interstiti al Pulmonary Fibrosis; Fibromyalgia Herbert Azevedo MD: [address] [place] [phone], Ph. Social History Tobacco Smoking Status Never Smoker Vaccine List Vaccine Type COVID-19, mRNA, LNP-S, PF, 100 mcg/0.5 m L dose (Moderna) 10/05/2020 11/02/2020 Hep B, adult 08/18/2008 influenza, high dose seasonal 05/12/2017?0.5 mL influenza, high-dose, quadrivalent 05/25/2020?0.7 mL influenza, seasonal, injectable 08/18/2013 influenza, trivalent, adjuvanted 06/03/2018?0.5 mL 06/28/2019?0.5 mL pneumococcal conjugate PCV 13 06/28/2019?0.5 mL pneumococcal polysaccharide [id number] 08/18/2013 11/04/2019?0.5 mL Td (adult), adsorbed 08/18/2009 Plan of Care Patient Instructions Follow-up as scheduled. Follow-up as scheduled. Reminders Provider Appointments None recorded. ? ? Lab None recorded. ? ? Referral None recorded. ? ? Procedures None recorded. ? ? Surgeries None recorded. ? ? Imaging None recorded. ? ? Vitals 05/31/2021 01:40PM Follow Up 20 Height Weight BMI Blood Pressure 152.4 cm 42.64 kg 18.4 kg/m2 130/80 mm[Hg] 04/20/2021 03:20PM Telehealth 20 Height 152.4 cm 04/17/2021 11:40AM Follow Up 20 Height Weight BMI Blood Pressure 152.4 cm 44.8 kg 19.3 kg/m2 125/78 mm[Hg] 03/02/2021 11:20AM Acute 20 Height Weight BMI Blood Pressure 152.4 cm 48.53 kg 20.9 kg/m2 136/92 mm[Hg] 02/13/2021 10:00AM Consult 40 Height Weight BMI Blood Pressure 152.4 cm 48.85 kg 21 kg/m2 (1) 183/105 mm[ Hg] (2) 173/102 mm[H g] 02/02/2021 01:20PM Opioid Management 20 Height Weight BMI Blood Pressure 152.4 cm 49.64 kg 21.4 kg/m2 132/80 mm[Hg] 01/23/2021 10:40AM Acute 20 Height Weight BMI Blood Pressure 152.4 cm 52.33 kg 22.5 kg/m2 136/80 mm[Hg] 01/01/2021 12:40PM Acute 20 Height Weight BMI Blood Pressure 152.4 cm 54.09 kg 23.3 kg/m2 134/82 mm[Hg] 12/15/2020 09:20AM Follow Up 20 Height Weight BMI Blood Pressure 152.4 cm 53.98 kg 23.2 kg/m2 150/86 mm[Hg] 11/09/2020 10:00AM Opioid Management 20 Height Weight BMI Blood Pressure 152.4 cm 54.23 kg 23.4 kg/m2 140/82 mm[Hg] 10/19/2020 11:00AM Follow Up 30 Height Weight BMI Blood Pressure 152.4 cm 54 kg 23.3 kg/m2 149/87 mm[Hg] 08/17/2020 10:40AM Opioid Management 20 Height Weight BMI Blood Pressure 152.4 cm 56.84 kg 24.5 kg/m2 146/86 mm[Hg] 07/31/2020 01:30PM Follow Up 30 Height Weight BMI Blood Pressure 152.4 cm 57 kg 24.5 kg/m2 168/90 mm[Hg] 07/20/2020 10:30AM Follow Up 30 Height Weight BMI Blood Pressure 152.4 cm 56.1 kg 24.2 kg/m2 153/92 mm[Hg] 06/22/2020 09:40AM Follow Up 20 Height Weight BMI Blood Pressure 152.4 cm 54.94 kg 23.7 kg/m2 138/86 mm[Hg] 05/25/2020 02:40PM Opioid Management 20 Height Weight BMI Blood Pressure 152.4 cm 53.52 kg 23 kg/m2 140/82 mm[Hg] 04/20/2020 10:30AM Follow Up 30 Height Weight BMI Blood Pressure 152.4 cm 50.6 kg 21.8 kg/m2 157/86 mm[Hg] 04/03/2020 01:00PM Follow Up 20 Height Weight BMI Blood Pressure 152.4 cm 48.08 kg 20.7 kg/m2 120/74 mm[Hg] 03/13/2020 01:00PM Follow Up 30 Height Weight BMI Blood Pressure 152.4 cm 46.4 kg 20 kg/m2 174/87 mm[Hg] 02/02/2020 03:15PM Follow Up 30 Height Weight BMI Blood Pressure 152.4 cm 42.8 kg 18.4 kg/m2 144/77 mm[Hg] 01/31/2020 02:40PM Follow Up 20 Height Weight BMI Blood Pressure 152.4 cm 42.78 kg 18.4 kg/m2 142/76 mm[Hg] 01/12/2020 01:30PM Follow Up 30 Height Weight BMI Blood Pressure 152.4 cm 41 kg 17.7 kg/m2 141/74 mm[Hg] 12/29/2019 02:00PM Follow Up 30 Height Weight BMI Blood Pressure 152.4 cm 39.8 kg 17.1 kg/m2 139/79 mm[Hg] 12/08/2019 01:00PM Follow Up 30 Height 152.4 cm 11/04/2019 08:30AM Follow Up 30 Height Weight BMI Blood Pressure 152.4 cm 37.3 kg 16.1 kg/m2 122/82 mm[Hg] 08/30/2019 03:00PM Follow Up 30 Height Weight BMI Blood Pressure 152.4 cm 38.8 kg 16.7 kg/m2 128/66 mm[Hg] 08/06/2019 02:45PM Office 15 Height Blood Pressure 152.4 cm 136/82 mm[Hg] 07/16/2019 02:30PM Office 15 Height Blood Pressure 152.4 cm 06/28/2019 10:30AM Consult 30 Height Weight BMI Blood Pressure 152.4 cm 38.9 kg 16.7 kg/m2 122/60 mm[Hg] 12/28/2018 09:20AM Follow Up 20 Height Weight BMI Blood Pressure 154.94 cm 43.57 kg 18.2 kg/m2 112/78 mm[Hg] 12/22/2018 09:40AM Acute 20 Height Weight BMI Blood Pressure 154.94 cm 42.64 kg 17.8 kg/m2 120/80 mm[Hg] 12/09/2018 10:20AM Follow Up 20 Height Weight BMI Blood Pressure 154.94 cm 44 kg 18.3 kg/m2 120/80 mm[Hg] 11/03/2018 01:00PM Follow Up 20 Height Weight BMI Blood Pressure 154.94 cm 44.06 kg 18.4 kg/m2 108/62 mm[Hg] 10/09/2018 02:00PM Acute 20 Height Weight BMI Blood Pressure 154.94 cm 45.36 kg 18.9 kg/m2 142/84 mm[Hg] 06/03/2018 10:20AM Acute 20 Height Weight BMI Blood Pressure 154.94 cm 44.09 kg 18.4 kg/m2 130/80 mm[Hg] 05/04/2018 02:20PM Follow Up 20 Height Weight BMI Blood Pressure 154.94 cm 45.87 kg 19.1 kg/m2 106/60 mm[Hg] 04/13/2018 02:30PM Follow Up 30 Height Weight BMI Blood Pressure 154.94 cm 45.59 kg 19 kg/m2 124/58 mm[Hg] 04/01/2018 01:00PM Acute 20 Height Weight BMI Blood Pressure 154.94 cm 44.91 kg 18.7 kg/m2 120/80 mm[Hg] 01/27/2018 04:00PM Follow Up 30 Height Weight BMI Blood Pressure 154.94 cm 48.22 kg 20.1 kg/m2 120/84 mm[Hg] 10/09/2017 Weight Blood Pressure 49.71 kg 112/76 mm[Hg] 05/12/2017 Height Weight Blood Pressure 154.94 cm 47.85 kg 130/70 mm[Hg] 04/24/2017 Height Weight Blood Pressure 154.94 cm 47.63 kg 120/80 mm[Hg] 10/07/2016 Height Weight Blood Pressure 154.94 cm 52.16 kg 120/70 mm[Hg] 08/20/2016 Height Weight Blood Pressure 154.94 cm 52.25 kg 120/80 mm[Hg] 07/31/2016 Height Weight Blood Pressure 154.94 cm 52.16 kg 120/80 mm[Hg]
--- OUTSIDE RECORDS SUMMARY | 2021-07-17 20:41 | XMS_ITS | Encounter Summary ---
:1950 Author Care Team Providers Name Role Phone Rober Cho MD Primary Care Provider [phone] Kiley Yarbrough MD Body And Fender Mechanic Apprentice [phone] Sarath Goldberg General Surgeon [phone] Netta Knight MD Nutrition Consultant [phone] Hesham Moreno MD Neuropsychology Division Chief [phone] Reason for Visit chronic pain management; Telehealth - Au crissy/Phone Assessment and Plan Assessment Note This is a 70-year-old lady being ev aluated for continued pain management. We reviewed safety with some of her tramado l disappearing recently and she has a safe locked box which appears as a locked carroll k in her home. She lives with her daughter. She will have random JENNIFER's with physical visit within the next 28 days. 1. Fibromyalgia Patient is failing mild narcot [...] not oversedated. She now is off prednisone. ? oxycodone 5 mg tablet ? tramadol 50 mg tablet 2. Medication monitoring Continue monitoring for safety . ? Benefits and Risks for Natan atment with Opioids ? Informed Consent Opiate Pr escribing 3. Chronic obstructive lung dise ase Patient is now weaned off pred nisone and continues inhalers. She will see Dr. Griffiths in [place] until she can e stablish with fluorescent solution mixer more local such as in [place] or [place]. Cont inue to monitor clinically. Patient does have pulmonary cachexia. Discussion Note: None recorded. Plan of Care Reminders Provider Appointments Acute [...] 07/29-laf Medications Administered None recorded. Vitals Height 5 ft Results Lab Results None recorded. Allergies Code Code System Name Reaction Severity Onset 01234 RxNorm Cefdinir Vomiting Moderate 08/17/2020 83804 RxNorm Gabapentin Other ? ? 819509 RxNorm Levaquin Respiratory ? ? Distress 68859 RxNorm Pepto-bismol Vomiting Mild to ? Moderate [...] [place]ar[place]atory [place] [facility] [place] Information not avai lable [...] Y Notes: dog Language Difficulties No Notes: marshallese Are you deaf or do you have serious N difficulty hearing? Are you passively exposed to smoke? N Hard of hearing or deaf in one or N both ears? What is your level of caffeine Moderate Notes: 1 cup tea daily consumption? Functional Status No Impairment. Past Encounters 04/20/2021 Fibromyalgia; Medication Monitoring; Chr onic Obstructive Lung Disease Rober Cho MD: [address] [place] [phone], Ph. 04/17/2021 Essential Hypertension; History of Cereb rovascular Accident Kiley Yarbrough MD: [address] [place] [address], Ph. History of Present Illness ? Back [...] Pain Severity: average pain: 4/10, worst pain: 10/10. ADL Improvements: physically functioning, over all function improved; sleep improved. Adverse Reactions: no nausea , no vomiting, no itching, no drowsiness Notes: <table><tbody><tr><th>Date</ <>Med
Calc<><>
<><>V PMS
Check<><>
</t h><th>Conc.
Benzos<><>
<><t h>Naloxone<<>
</> <th>Date Agree
Signed<><>
</><>Last
UDT</><>
</>< >Func Assess
Tool<><><b r></><th>ORT
Score</><th>
</> <th>COMM
Score</></tr>< tr><td>04/03/2020</td><td>30</td><td>
</t d><td>04/03/20</td><td>
</ td><td>no</td><td>
</td><td>no</td><td >
[...] td>no</td><td>
</td><td>no</td><td>
</td><td>discussed</td><td>
</td><td>next visit</td><td>
</td><td>1 </td><td>
</td><td>
</td><td><b r></td><td>
</td><td>< br></td></tr><tr><td>
</td><td>
</td>< td>
</td><td>
</td><td >
</td><td>
</td><td>
</td><td>
</td><td>
</td><td>
</td><td>
</td><td>
</td><td>
< /td><td>
</td><td>
</td><td>
</td><td>
</td><td>
</td> <td>
</td></tr><tr><td><b r></td><td>
</td><td>
</td><td>
</td><td>
</td><td>
</ td><td>
</td><td>
</td><td>
</td ><td>
</td><td>
</td>< td>
</td><td>
</td><td>
</td><td>&l t;br></td><td>
</td><td>< br></td><td>
</td><td><table></table>< /td></tr></tbody></table> Note: <p>This is a 70-year-old female patient on a telehealth audio visit to follow up with provider for pain medication. She is due for tramadol on 05/01/2021 and oxycodone 05/03/21. She states shedid have some moreno on her buttocks the other day from sliding across her mattress but it cleared up with Desitin. </p><p>This visit was performed virtually an audio connection via phone.As such, the physical examination is necessarily limited. The risks and benefits of the use of this alternative platform were discussed with the patient and or guardian and verbal consent was obtained.My assessment and plans are based on such examination. Further evaluation, including in-person examination, may be needed depending on the response to management or today's recommendation. </p>
The patient is home.
The provider is {{home in the office*}}.
The patienthas been positively identified and has consented to a phone visit.
I have determined that it was clinically appropriate to deliver health care services to the patient by audio- only telephone.
The time spent in counseling and coordination of care was 25 minutes.
Patient is receiving audio-only care due to: {{Broadband Access / Reliability Concerns Technical Barrier Other than Broadband* Patient Comfort or Preference Clinical Indication Other:}}
Review of Systems: ROS as noted in the HPI Review of Systems ? Notes: 13 point review of systems o therwise unrevealing or stable. Physical Exam ? Notes: Physical exam not obtained v isually with audio only available after attempts of video conference. Patient was short of breath during conversation but speaking in complete sentenc es. She sounded anxious with pressured speech. She was alert and oriented least to person and place.
--- NOTE | 2021-07-17 20:46 | W.ED.GENAD ---
Discharge Plan Disposition Patient Disposition: HOME Condition: Good Discharge Details Clinical Impression: Acute UTI Primary Care Provider: Chloe Barrett ED Provider: Melquiades Rogers Home Meds and New Rx's Prescriptions: New cephalexin 500 mg capsule 500 mg PO QID 7 Days Qty: 28 RF: 0 Continued atorvastatin 10 mg tablet 10 mg PO QHS Qty: 90 RF: 3 mycophenolate mofetil 500 mg Tablet 1,000 mg PO BID RF: 0 nintedanib 100 mg Capsule 150 mg PO BID RF: 0 tramadol 50 mg tablet 50 mg PO 6XD PRNRF: 0 benzonatate 100 mg capsule 100 mg PO TID RF: 0 albuterol sulfate 90 mcg/actuation HFA aerosol inhaler 2 puff inhalation Q4H PRN PRNRF: 0 oxycodone 5 mg tablet 5 mg PO HS RF: 0 megestrol 625 mg/5 mL (125 mg/mL) suspension 5 ml PO DAILY RF: 0 fluticasone propionate 50 mcg/actuation spray,suspension 2 spray INTRANASAL DAILY RF: 0 aspirin 81 mg Tablet,Delayed Release (Dr/Ec) 81 mg PO DAILY Qty: 30 RF: 0 losartan-hydrochlorothiazide 50-12.5 mg tablet 1 tab PO DAILY RF: 0 ipratropium-albuterol 0.5 mg-3 mg(2.5 mg base)/3 mL Solution For Nebulization 3 ml UPD Q4H PRN PRN (Reason: shortness of breath) Qty: 180 RF: 0 cyanocobalamin (vitamin B-12) [Vitamin B-12] 1,000 mcg Tablet 1,000 mcg PO DAILY RF: 0 Discharge Instructions Instructions: Urinary Tract Infection in Women (ED) Additional Instructions: You have a urinary tract infection. We have given you a dose of IV antibiotics here, and we have sent a prescription to your pharmacy at [facility]. Please take this as directed. Please drink plenty of fluids, drink cranberry concentrate, and follow-up closely with your primary care provider. If you notice any worsening of your symptoms, or any new symptoms such as vomiting, diarrhea, fever, chills, shortness of breath, chest pain, numbness, weakness, or fainting , please return immediately to the emergency department for reevaluation. Please follow up with your primary care provider as soon as possible for reassessment and reevaluation. As always, it was a pleasure participating in your medical care today. Referrals: Chloe Barrett [Primary Care Provider] - Medical Decision Making 70-year-old female with a past medical history of fibromyalgia, hypertension, chronic cough, who presents today for evaluation of foul-smelling urine. Patient states that she has had some foul-smelling urine for the last 2 days, and developed some mild suprapubic tenderness today. She denies any fever or chills. She denies any nausea vomiting or diarrhea. She denies any chest pain shortness of breath that is new. No other complaints at this time. No other modifying factors. She states that this feels identical to her previous urinary tract infections. She has not been on any antibiotics recently. She has had UTIs in the past. Review of previous cultures demonstrate variable sensitivities. Physical exam demonstrates minimal suprapubic tenderness, no pain to McBurney's point, negative Livingston sign. No evidence of an acute surgical abdomen. Suspect urinary tract infection. Will evaluate for this, monitor closely and reassess. 9 PM Laboratory work-up demonstrates positive nitrites, urinalysis is suggestive of urinary tract infection. Given the likelihood for a gram-negative organism with a positive nitrite I do suspect that this is likely E. coli again. Previous sensitivities demonstrated good sensitivity for ceftriaxone. Will give a gram of ceftriaxone here, and a prescription for Keflex for home. Discussed red flags which to return. I have extensively reviewed the treatment plan and discharge instructions with the patient and their family. I have addressed all patient concerns at this time. The patient and family was made aware of what symptoms to monitor for that would warrant a return to the emergency department. Discussed the plan with the patient and family, they demonstrate verbal understanding and agreement with our assessment and plan at this time. The documentation in this chart was dictated using [employer] dictation software. Please excuse any dictation errors. HPI General Date/Time Provider Initiated Documentation: 07/17/21 20:37. HPI Narrative: 70-year-old female with a past medical history of fibromyalgia, hypertension, chronic cough, who presents today for evaluation of foul-smelling urine. Patient states that she has had some foul-smelling urine for the last 2 days, and developed some mild suprapubic tenderness today. She denies any fever or chills. She denies any nausea vomiting or diarrhea. She denies any chest pain shortness of breath that is new. No other complaints at this time. No other modifying factors. She states that this feels identical to her previous urinary tract infections. She has not been on any antibiotics recently. She has had UTIs in the past. Review of previous cultures demonstrate variable sensitivities. Related Data Home Medications Medication Instructions Recorded Confirmed ipratropium-albuterol 3 ml UPD Q4H PRN PRN #180 ml 12/25/18 07/17/21 mycophenolate mofetil 1,000 mg PO BID 12/14/19 07/17/21 nintedanib 150 mg PO BID 12/14/19 07/17/21 albuterol sulfate 2 puff INHALATION Q4H PRN PRN 11/24/20 07/17/21 aspirin 81 mg PO DAILY #30 tab 11/24/20 07/17/21 benzonatate 100 mg PO TID 11/24/20 07/17/21 fluticasone propionate 2 spray INTRANASAL DAILY 11/24/20 07/17/21 megestrol 5 ml PO DAILY 11/24/20 07/17/21 oxycodone 5 mg PO HS 11/24/20 07/17/21 tramadol 50 mg PO 6XD PRN 11/24/20 07/17/21 cyanocobalamin (vitamin B-12) 1,000 mcg PO DAILY 01/11/21 07/17/21 [Vitamin B-12] atorvastatin 10 mg tablet 10 mg PO QHS #90 tab 01/31/21 07/17/21 losartan-hydrochlorothiazide 1 tab PO DAILY 03/01/21 07/17/21 cephalexin 500 mg PO QID 7 Days #28 cap 07/17/21 Previous Rx's Medication Instructions Recorded ipratropium-albuterol 3 ml UPD Q4H PRN PRN #180 ml 12/25/18 aspirin 81 mg PO DAILY #30 tab 11/24/20 atorvastatin 10 mg tablet 10 mg PO QHS #90 tab 01/31/21 cephalexin 500 mg PO QID 7 Days #28 cap 07/17/21 Allergies Allergy/AdvReac Type Severity Reaction Status Date / Time Sulfa (Sulfonamide Allergy Severe throat Unverified 07/17/21 20:46 Antibiotics) swelling/can't breath levofloxacin Allergy Intermediate Other (See Unverified 07/17/21 20:46 Comment) General JAMIE: 3 Review of Systems All systems reviewed & are unremarkable except as noted in HPI and below PFSH Active Problem List Hip pain (Acute) Fall (Acute) Chest wall pain (Acute) Hypokalemia (Acute) Stress at home (Acute) SOB (shortness of breath) (Acute) Essential tremor (Acute) Pre-diabetes (Acute) Stroke (Chronic) Cellulitis of left wrist (Acute) Arthritis of left wrist (Acute) Fracture of middle phalanx of left ring finger (Acute) Pulmonary fibrosis (Chronic) Bronchitis (Acute) Medical History Chronic back pain Fibromyalgia Hypertension Osteoarthritis Surgical History Hx of ultrasound guided needle biopsy of lung S/P cholecystectomy S/P gastric bypass S/P hernia repair S/P hysterectomy Family History Mother Stroke Maternal Grandmother Stroke Maternal Uncle Stroke Social History Smoking/Tobacco Use Status: Never Second Hand Exposure: Yes (Secondary to her parents as well as ) Smoking risk assessment performed?: Yes Alcohol Intake: never Drug use: Never Substance use type: does not use Household members: family and children Housing: other Details: [facility] [place] Number of Children: 5 number of grandchildren: 8 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Eyes: PERRL, no conjunctival injection, and symmetrical lids. 3.ENT: Atraumatic external nose and ears. Moist MM. Neck: Symmetric, trachea midline, No thyromegaly. 4.CVS: +S1/S2, No murmurs or gallops. Peripheral pulses 2+ and equal in all extremities. Brisk capillary refill in all extremities. 5.RESP: Unlabored respiratory effort. Clear to auscultation bilaterally. No wheezes rales or rhonchi 6.GI: Soft, Nontender/Nondistended, No hepatosplenomegaly. No guarding or rebound. No pain to McBurney's point, negative Livingston sign, mild tenderness in the suprapubic region. No evidence of an acute surgical abdomen. 7.MSK: Normocephalic/Atraumatic, Extremities w/o deformity or ttp No cyanosis or clubbing, Normal movement of all extremities 8.Skin: Warm, Dry. No rashes or lesions. 9.Neuro: human resources partner II-XII grossly intact. Sensation grossly intact, no focal neurologic deficits. 10.Psych: (AAO) x3. Appropriate mood and affect
[2021-07-17 20:47] LABS: Bilirubin Negative (Negative); Blood Trace-lysed (Negative); Clarity Clear (Clear); Glucose Negative (Negative); Ketones Trace mg/dL (Negative); Leukocyte Esterase Negative (Negative); Nitrite Positive (Negative); Specific Gravity >= 1.030 (1.005-1.025); Urobilinogen 0.2 EU/dL (Up TO 0.2)
[2021-07-17] MEDS: Normal Saline 500 ML IV (20:57)
[2021-07-17 21:05] LABS: Bacteria Packed HPF (Negative); C & S Indicated? Yes; Crystals Negative HPF (Negative); Epithelial Cells Negative HPF (Negative); Mucus Negative (Negative); RBC 0-2 HPF (0-2)
[2021-07-17] MEDS: cefTRIAXone 1 GM/50 ML BAG IVPB (21:05)
[2021-07-17 21:39] VITALS: BP 146/72; PULSE 88; RESP 16; O2SAT 98
== END 2021-07-17 21:54 | disposition home or self-care (01) ==
PROVIDERS: Emergency Provider Student in an Organized Health Care Education/Training Program; PCP Physician Assistant Medical
DX: N39.0 Urinary tract infection, site not specified (principal); Z87.440 Personal history of urinary (tract) infections
CPT/HCPCS: 87077; 96361; 96365; 99284; 81003; 81015; 87086; 87186; 99283; J0696

== ENCOUNTER 2021-08-24 03:03 | Outpatient (CLI) | payer MEDICARE, MEDICAID, SELFPAY ==
[2021-08-24 10:45] LABS: Source Nasal/Nares
[2021-08-24 13:47] LABS: COVID-19 PCR Positive (Negative)
== END 2021-08-24 03:04 | disposition home or self-care (01) ==
LOC: LBO 03:03
PROVIDERS: PCP Physician Assistant Medical; Visit Provider Ophthalmology
DX: Z20.822 Contact with and (suspected) exposure to COVID-19 (principal); Z01.818 Encounter for other preprocedural examination
CPT/HCPCS: 87635

== ENCOUNTER 2021-08-25 19:03 | Inpatient (IN) | payer MEDICARE, MEDICAID, SELFPAY ==
[2021-08-25] VITALS (38 sets, daily range): BP systolic 118–152; BP diastolic 63–91; PULSE 81–96; RESP 12–25; TEMP 36.3–36.8; O2SAT 92–100
[2021-08-25 19:15] LABS: Bilirubin Negative (Negative); Blood Small (Negative); Clarity Cloudy (Clear); Glucose Negative (Negative); Ketones Negative (Negative); Leukocyte Esterase Trace (Negative); Nitrite Positive (Negative); Specific Gravity >= 1.030 (1.005-1.025); Urobilinogen 0.2 EU/dL (Up TO 0.2); pH 5.5 (5-8)
[2021-08-25 19:22] LABS: Bacteria Many HPF (Negative); C & S Indicated? Yes; Casts Negative LPF (Negative); Crystals Negative HPF (Negative); Epithelial Cells Few HPF (Negative); Mucus Moderate (Negative)
--- NOTE | 2021-08-25 19:30 | DI.CT_ITS ---
Exam(s) CT ABDOMEN PELVIS W EXAM: CT ABDOMEN PELVIS W CLINICAL HISTORY: lower abdominal pain, recurrent uti. TECHNIQUE: Imaging Protocol: Axial computed tomography images with coronal and sagittal reformatted images were created and reviewed CONTRAST MATERIAL: Intravenous: Omnipaque 350 Contrast volume:64 ml Oral: / no COMPARISON: CT CT CHEST PE CTA from 03/24/2021 FINDINGS: ABDOMEN: Lung Bases: Pulmonary fibrosis. Mild traction bronchiectasis. Area of patchy density in the right l ower lobe does not appear significantly changed from prior chest CT. Liver: Normal density. No measurable mass. Gallbladder and biliary tract: Status post cholecystectomy. Stable intra and extrahepatic biliary di latation. No radiodense calculus. Pancreas: Atrophic., no abnormal calcifications or inflammatory process. Spleen: Normal. Kidneys: Normal size, contour and axis. Six millimeter stone lower pole left kidney. No obstructive uropathy. No masses seen. Adrenal glands: No masses seen. Abdominal Aorta: Abdominal portion non-dilated. Stomach: Multiple surgical clips near the fundus of the stomach creating streak artifact. PELVIS: Bladder: No gross wall thickening. No calculi.No focal mass. Bowel: No obstruction or bowel wall thickening. Appendix not seen. Suture material near base of cecu m.. Peritoneal cavity: No ascites, collection or mesenteric inflammatory response. Bones: Degenerative changes and scoliosis are noted in the spine. No compression fractures. Reproductive organs: Status post hysterectomy. Lymph nodes: Unremarkable. Impression: Status post cholecystectomy and stable biliary dilatation. Gastric surgery. No evidence of bowel obstruction or inflammation. Nonobstructing stone lower pole left kidney. Pulmonary fibrosis. RADIATION DOSE DELIVERED: 792.49mGy.cm Total DLP DATA REPOSITORY: All CT scans at this facility are submitted to the National Radiology Data Registry (NRDR) Dose Index Registry (DIR) with the [employer] (ACR). RADIATION OPTIMIZATION: All CT scans at this facility use at least one of these dose optimization te chniques: automated exposure control; mA and/or kV adjustment per patient size (includes targeted exa ms where dose is matched to clinical indication); or iterative reconstruction.
--- NOTE | 2021-08-25 19:30 | RT.EKG_ITS ---
APPROVED REPORT Exam: Resting ECG Reason for Exam: weakness Patient Location: E HR:90 bpm ECG Measurements Heart Rate 90 AXIS CA 135 P 54 QRSd 84 QRS -18 QT 352 T 57 QTc 431 Conclusion Sinus rhythm...normal P axis, V-rate 60- 99
--- NOTE | 2021-08-25 19:39 | DI.RAD_ITS ---
Exam(s) XR PORTABLE CHEST AP EXAM: XR PORTABLE CHEST AP CLINICAL HISTORY: shortness of breath TECHNIQUE: 2D digital imaging was performed. COMPARISON: CR XR PORTABLE CHEST AP from 05/21/2021 FINDINGS: LUNGS: Extensive pulmonary fibrosis. Low lung volumes. No pleural abnormality seen. HEART: Normal. MEDIASTINUM: Normal. BONES: Degenerative changes and scoliosis. Soft tissues: Surgical clips in the region of the stomach. Right upper quadrant surgical clips. IMPRESSION: Fibrotic changes. No acute pulmonary findings. DATA REPOSITORY: RADIATION DOSE DELIVERED:
[2021-08-25 19:54] LABS: Lactate 3.1 mmol/L (0.6-1.4)
[2021-08-25 19:57] LABS: Abs Immature Grans 0.06 10^3/uL (0.0-0.06); Absolute Basophil Count 0.05 10^3/uL (0.0-0.2); Absolute Eosinophil Count 0.12 10^3/uL (0.0-0.7); Absolute Lymphocyte Count 1.26 10^3/uL (1.2-3.4); Absolute Monocyte Count 0.89 10^3/uL (0.1-0.8); Basophils % 0.4; HCT 41.7 % (36.0-46.0); HGB 12.6 g/dL (11.2-15.7); Immature Grans % 0.5; Lymphocytes % 10.8; MCH 31.4 pg (27.0-33.0); MCHC 30.2 % (32.0-36.0); MPV 8.7 fL (8.0-11.0); Monocytes % 7.6; Neutrophils % 79.7; Nucleated RBC 0 %; Platelet Count 440 10^3/uL (130-400); RBC 4.01 10^6/uL (3.93-5.22); RDW 13.8 % (11.7-14.6); RDW-SD 53.5 fL; WBC 11.68 10^3/uL (4.4-10.8)
[2021-08-25 19:58] LABS: Absolute Neutrophil Count 9.31 10^3/uL (1.2-6.7)
[2021-08-25] MEDS: Ondansetron 4 MG/2 ML VIAL IVP (20:01)
[2021-08-25] MEDS: Normal Saline 500 ML IV ×2 (20:01→21:50)
[2021-08-25] MEDS: Phenazopyridine 100 MG TAB PO (20:01)
[2021-08-25] MEDS: fentaNYL 100 MCG/2 ML VIAL 50 MCG IVP ×2 (20:02→22:34)
--- NOTE | 2021-08-25 20:09 | ED.GENADUL_ITS ---
Discharge Plan Disposition Patient Disposition: HOME Condition: Good Discharge Details Clinical Impression: Acute UTI, Renal stones, COVID-19 Primary Care Provider: Rober Cho ED Provider: Chiquita Ma Home Meds and New Rx's Prescriptions: No Action atorvastatin 10 mg tablet 10 mg PO QHS Qty: 90 RF: 3 mycophenolate mofetil 500 mg Tablet 1,000 mg PO BID RF: 0 nintedanib 100 mg Capsule 150 mg PO BID RF: 0 tramadol 50 mg tablet 50 mg PO 6XD PRNRF: 0 benzonatate 100 mg capsule 100 mg PO TID RF: 0 albuterol sulfate 90 mcg/actuation HFA aerosol inhaler 2 puff inhalation Q4H PRN PRNRF: 0 oxycodone 5 mg tablet 5 mg PO HS RF: 0 megestrol 625 mg/5 mL (125 mg/mL) suspension 5 ml PO DAILY RF: 0 fluticasone propionate 50 mcg/actuation spray,suspension 2 spray INTRANASAL DAILY RF: 0 aspirin 81 mg Tablet,Delayed Release (Dr/Ec) 81 mg PO DAILY Qty: 30 RF: 0 losartan-hydrochlorothiazide 50-12.5 mg tablet 1 tab PO DAILY RF: 0 ipratropium-albuterol 0.5 mg-3 mg(2.5 mg base)/3 mL Solution For Nebulization 3 ml UPD Q4H PRN PRN (Reason: shortness of breath) Qty: 180 RF: 0 cyanocobalamin (vitamin B-12) [Vitamin B-12] 1,000 mcg Tablet 1,000 mcg PO DAILY RF: 0 Medical Decision Making Patient meets sepsis criteria with tachypnea, tachycardia, and for 3 urinary tract infection, she is alert and oriented but is quite weak with a lactic acidosis of 3, she was given 1 L of normal saline, she does not meet septic shock criteria She is complicated in that she is immunosuppressed on mycophenolate and tested Covid positive yesterday on a prescreening swab She is relatively asymptomatic and unsure as to when she may have been exposed, she is fully vaccinated for COVID-19. I did initiate ceftriaxone after reviewing her prior diagnostic urinalysis culture that should positive E. coli, she was appropriately treated with Keflex and mupirocin regarding her symptoms resolved completely until the past week. At this time given her comorbidities and presentation including weakness lactic acidosis I think she would benefit from admission to hospital at this time I did review her Covid swab from yesterday 1 7 PCR positive for Covid and did not order repeat Covid test at this [facility] Dr. Cho who is willing to admit the patient to the hospital for further observation evaluation I did review her CT findings that show that her biliary duct is dilated, slightly larger than typical with cholecystectomy, however her lipase and LFTs are all within normal limits and she is not tender in the right quadrant I suspect that her symptoms are related to urinary tract infection which is confirmed on a urinary analysis She is pending urine culture at this time She was mildly hypoglycemic, 57, she was asymptomatic with this but did supplement with p.o. glucose, she had a recheck of her blood sugar and it was noted to be 110 She is agreeable to admission at this time she has been stable condition at time of reassessment Medical Records Medical records reviewed: Yes I reviewed the patient's medical records. HPI General Mode of arrival: ambulatory . Date/Time Provider Initiated Documentation: 08/25/21 19:11 . Limitations to Documentation: no limitations . Information obtained by: patient . HPI Narrative: This 70-year-old female with history of pulmonary fibrosis, CVA, bronchitis, essential tremor presents with report of weakness, abdominal pain, dysuria. Patient states she was recently treated for urinary tract infection and had similar symptoms. She completed the course of antibiotic and was doing well until earlier this week, she presents today secondary to weakness and worsening pain. She denies fevers at home. She is not been on an antibiotic recently as her PCP was pending culture given her recent urinary tract infection. She denies any chest pain or shortness of breath. She incidentally was diagnosed with COVID-19 on a routine presurgical swab yesterday. She is asymptomatic for this mass and has been Covid vaccinated. Denies prior history of ureteral or nephrolithiasis Related Data Home Medications Medication Instructions Recorded Confirmed ipratropium-albuterol 3 ml UPD Q4H PRN PRN #180 ml 12/25/18 08/25/21 mycophenolate mofetil 1,000 mg PO BID 12/14/19 08/25/21 nintedanib 150 mg PO BID 12/14/19 08/25/21 albuterol sulfate 2 puff INHALATION Q4H PRN PRN 11/24/20 08/25/21 aspirin 81 mg PO DAILY #30 tab 11/24/20 08/25/21 benzonatate 100 mg PO TID 11/24/20 08/25/21 fluticasone propionate 2 spray INTRANASAL DAILY 11/24/20 08/25/21 megestrol 5 ml PO DAILY 11/24/20 08/25/21 oxycodone 5 mg PO HS 11/24/20 08/25/21 tramadol 50 mg PO 6XD PRN 11/24/20 08/25/21 cyanocobalamin (vitamin B-12) 1,000 mcg PO DAILY 01/11/21 08/25/21 [Vitamin B-12] atorvastatin 10 mg tablet 10 mg PO QHS #90 tab 01/31/21 08/25/21 losartan-hydrochlorothiazide 1 tab PO DAILY 03/01/21 08/25/21 Previous Rx's Medication Instructions Recorded ipratropium-albuterol 3 ml UPD Q4H PRN PRN #180 ml 12/25/18 aspirin 81 mg PO DAILY #30 tab 11/24/20 atorvastatin 10 mg tablet 10 mg PO QHS #90 tab 01/31/21 Allergies Allergy/AdvReac Type Severity Reaction Status Date / Time Sulfa (Sulfonamide Allergy Severe Anaphylaxis Unverified 08/25/21 19:22 Antibiotics) levofloxacin Allergy Intermediate Other (See Unverified 08/25/21 19:22 Comment) General Stated Complaint: Urinary JAMIE: 3 Review of Systems All systems reviewed & are unremarkable except as noted in HPI and below PFSH All Active Problems (Updated 08/25/21 @ 22:53 by Rober Cho) Pneumonia (Acute) Renal stones (Chronic) Calcium ureterolithiasis (Acute) Hip pain (Acute) Fall (Acute) Chest wall pain (Acute) Hypokalemia (Acute) Stress at home (Acute) SOB (shortness of breath) (Acute) Acute UTI (Acute) Essential tremor (Acute) Pre-diabetes (Acute) Stroke (Chronic) Cellulitis of left wrist (Acute) Arthritis of left wrist (Acute) Fracture of middle phalanx of left ring finger (Acute) Pulmonary fibrosis (Chronic) Patient had previous work-up by Dr. Ferrara in [facility] in March 2018. Patient reports that her PFTs did not show underlying COPD, patient has a follow-up with Dr. Giron in February 16, 2019 Bronchitis (Acute) Medical History Chronic back pain Fibromyalgia Hypertension Osteoarthritis Surgical History Hx of ultrasound guided needle biopsy of lung S/P cholecystectomy S/P gastric bypass S/P hernia repair S/P hysterectomy Family History Mother Stroke Maternal Grandmother Stroke Maternal Uncle Stroke Social History Smoking/Tobacco Use Status: Never Second Hand Exposure: Yes (Secondary to her parents as well as ) Smoking risk assessment performed?: Yes Alcohol Intake: never Drug use: Never Substance use type: does not use Household members: family and children Housing: other Details: moble home Number of Children: 5 number of grandchildren: 8 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 [employer] Pets and animals: Yes Pets and animals: dog(s) Current gender identity: female What is your relationship status?: Panel score (0-1 are the most socially isolated patients): 0 What type of physical activity do you participate in: walking Frequency: daily Seatbelt use: always Do you feel safe at home: Yes Do you feel safe in your relationship?: Yes History History 4 Para Hx # Term Pregnancies 4 Multiple births Hx # Pregnancies Ectopic pregnancies AB induced Hx Number of Living Children AB spontaneous Exam Const General: cooperative and comfortable Eyes Pupils: PERRL Resp Effort & Inspection: normal respiratory effort Auscultation: diminished lung sounds Cardio Rate: regular rate Rhythm: regular rhythm GI Inspection: normal to inspection Auscultation: normal bowel sounds Other: No CVA tenderness, no RUQ tenderness, suprapubic tenderness patient Skin General skin exam: no rashes or lesions noted Neuro General: patient alert and patient oriented x3 Extrem Other: Nontender lower extremity exam, no edema distal pulses intact to all 4 extremities Course Vital Signs Vital signs: Vital Signs Temperature 36.3 C L 08/25/21 19:08 Pulse 94 H 08/25/21 19:08 Respiratory Rate 24 08/25/21 19:08 Blood Pressure 132/72 08/25/21 19:08 Pulse Oximetry 96 08/25/21 19:08 Temperature 36.3 C L 08/25/21 19:08 Temperature Source Skin 08/25/21 19:08 Pulse 94 H 08/25/21 19:08 Respiratory Rate 24 08/25/21 19:08 Respiratory Effort Non-Labored 08/25/21 19:25 Blood Pressure 132/72 08/25/21 19:08 Pulse Oximetry 96 08/25/21 19:08 Pain Level 10 08/25/21 19:25 Lab/Test Results Lab/Test Results: 08/25/21 19:25 Blood Blood Culture - Pending 08/25/21 19:39 Blood Blood Culture - Pending 08/25/21 19:11 Urine - Reflex from Ua Urine Culture - Pending Laboratory Tests Range/Units 08/25/21 08/25/21 08/25/21 19:11 19:25 19:25 WBC (4.4-10.8) 10^3/uL 11.68 H RBC (3.93-5.22) 10^6/uL 4.01 Hgb (11.2-15.7) g/dL 12.6 Hct (36.0-46.0) % 41.7 MCV (80-95) fL 104.0 H MCH (27.0-33.0) pg 31.4 MCHC (32.0-36.0) % 30.2 L RDW (11.7-14.6) % 13.8 Plt Count (130-400) 10^3/uL 440 H MPV (8.0-11.0) fL 8.7 Immature Gran % 0.5 Neutrophils % 79.7 Lymphocytes % 10.8 Monocytes % 7.6 Eosinophils % 1.0 Basophils % 0.4 Nucleated RBC % % 0 Absolute Neutrophils (1.2-6.7) 10^3/uL 9.31 H Absolute Lymphocytes (1.2-3.4) 10^3/uL 1.26 Absolute Monocytes (0.1-0.8) 10^3/uL 0.89 H Absolute Eosinophils (0.0-0.7) 10^3/uL 0.12 Absolute Basophils (0.0-0.2) 10^3/uL 0.05 VBG Lactate (0.6-1.4) mmol/L 3.1 H* Urine Color (Yellow) Yellow Urine Clarity (Clear) Cloudy Urine pH (5-8) 5.5 Ur Specific [place] (1.005-1.025) >= 1.030 H Urine Protein (Negative) mg/dL >=300 H Urine Ketones (Negative) mg/dL Negative Urine Blood (Negative) Small H Urine Nitrite (Negative) Positive H Urine Bilirubin (Negative) Negative Urine Urobilinogen (Up TO 0.2) EU/dL 0.2 Ur Leukocyte Esterase (Negative) Trace H Urine RBC (0-2) HPF 3-5 H Urine WBC (0-5) HPF 10-20 H Ur Epithelial Cells (Negative) HPF Few Urine Crystals (Negative) HPF Negative Urine Bacteria (Negative) HPF Many Urine Casts (Negative) LPF Negative Urine Mucus (Negative) Moderate Ur Culture Indicated? Yes Urine Glucose (Negative) mg/dL Negative
[2021-08-25 20:10] LABS: ALT 18 U/L (14-59); AST 40 U/L (15-37); Albumin 3.4 g/dL (3.4-5.0); Alkaline Phosphatase 105 U/L (46-116); Anion Gap 10.7 mmol/L (3-11); BUN 18 mg/dL (7-18); Bilirubin, Total 0.3 mg/dL (0.2-1.0); CO2 25.3 mmol/L (21.0-32.0); Calcium 8.7 mg/dL (8.5-10.1); Chloride 105 mmol/L (98-107); Estimated GFR 54.81 (mL/min/1.73m2); Glucose 57 mg/dL (74-106); Potassium 4.5 mmol/L (3.5-5.1); Sodium 141 mmol/L (136-145); Total Protein 7.5 g/dL (6.4-8.2); Troponin I < 50 ng/L (<or=60)
[2021-08-25] MEDS: Omnipaque 350 MG/ML 100 ML BTL IJ (20:48)
[2021-08-25] MEDS: cefTRIAXone 2 GM/50 ML BAG IVPB (21:14)
--- NOTE | 2021-08-25 21:34 | DI.VRAD_ITS ---
PROCEDURE INFORMATION: Exam: CT Abdomen And Pelvis With Contrast Exam date and time: 08/25/2021 7:44 PM Age: 70 years old Clinical indication: Localized; Prior surgery; Patient HX: Lower abdominal pain, recurrent UTI TECHNIQUE: Imaging protocol: Computed tomography of the abdomen and pelvis with contrast. COMPARISON: XR PELVIS AP 03/01/2021 5:40 PM FINDINGS: Limitations: Paucity of intra-abdominal fat. Lungs: Extensive reticular opacity throughout the lower lung zones bilaterally with a somewhat peripheral distribution. Interstitial scarring suspected. Traction bronchiectasis also present. Asymmetric patchy alveolar opacity on the right. Small volume of aspiration? Acute pulmonary infection? Liver: Liver partially obscured by streak artifact but grossly unremarkable, as seen. Gallbladder and bile ducts: Prior cholecystectomy with prominent intrahepatic and extrahepatic biliary dilatation with the common bile duct measuring 1.8 cm maximum transverse dimension. No distally obstructing stone or mass demonstrated. Pancreas: Pancreas partially obscured but demonstrating moderate-severe atrophy. Spleen: Spleen partially obscured by streak artifact but grossly unremarkable, as seen. Adrenal glands: Normal appearing adrenal glands. Kidneys and ureters: 4 mm nonobstructing left renal calculus. Normal-appearing right kidney. No hydronephrosis. Stomach and bowel: Stomach partially obscured by streak artifact created by metallic surgical material in the left upper quadrant. Prior gastric surgery. Gastric bypass with gastrojejunostomy? Correlation with surgical history recommended. Enteroenteric anastomosis located in the left upper quadrant. No small bowel dilatation to suggest obstruction. Normal-appearing colon. No evidence of diverticulitis or colitis. Appendix: Appendix not identified, obscured if present. Correlation with surgical history recommended. If there is clinical concern for acute appendicitis and the patient still has an appendix, additional evaluation would be recommended. No gross pericecal inflammatory change. Intraperitoneal space: No gross ascites or free air. Vasculature: Tortuous abdominal aorta, normal in caliber. Lymph nodes: No pathologically enlarged mesenteric, retroperitoneal, or pelvic sidewall lymph nodes. Urinary bladder: Urinary bladder partially collapsed but grossly unremarkable, as seen. Reproductive: Prior hysterectomy. Ovaries not identified, obscured if present. Correlation with surgical history recommended. Bones/joints: No acute fracture seen among the bones of the abdomen or pelvis. Spinal degenerative change with discogenic degeneration and anterior osteophytes at multiple levels. Soft tissues: Coarse subcutaneous calcifications in the flanks, probably dystrophic calcifications from old fat necrosis in the setting of prior trauma or injection granulomas. Diastasis recti. No significant ventral or inguinal hernia. IMPRESSION: 1. Prior gastric surgery, probably a gastric bypass procedure with gastrojejunostomy although correlation with surgical history is recommended. No acute bowel pathology is demonstrated. 2. 4 mm nonobstructing left renal calculus. No hydronephrosis. 3. Prior cholecystectomy with prominent intrahepatic and extrahepatic biliary dilatation, possibly a postoperative appearance but more dilated than generally seen. Within the limits of the exam, no distally obstructing stone or mass is demonstrated. Clinical correlation recommended. 4. Chronic interstitial scarring throughout both lung bases with traction bronchiectasis. 5. Patchy alveolar opacity in the right lower lobe suspicious for small volume of aspiration or pneumonia. Dictated and Authenticated by: Kaveh Lara MD. Ordering:LUIS Porras MD
--- NOTE | 2021-08-25 21:37 | DI.VRAD_ITS ---
PROCEDURE INFORMATION: Exam: XR Chest Exam date and time: 08/25/2021 9:01 PM Age: 70 years old Clinical indication: Shortness of breath; Patient HX: SOB TECHNIQUE: Imaging protocol: XR of the chest. Views: 1 view. COMPARISON: CR XR PORTABLE CHEST AP 05/21/2021 1:44 PM, CT abdomen and pelvis August 25, 2021. FINDINGS: Lungs: Diffuse reticular interstitial thickening with an appearance suggesting chronic interstitial lung disease/interstitial scarring. No pulmonary consolidation demonstrated. Pleural spaces: No pleural effusion or pneumothorax seen. Heart/Mediastinum: Normal sized heart. Bones/joints: Visualized bony structures grossly intact, as seen. Gastrointestinal tract: Clustered surgical clips projecting over the proximal stomach with an appearance suggesting prior gastric surgery. Organs: Surgical clips in the right upper quadrant in a location suggesting a prior cholecystectomy. IMPRESSION: 1. Diffuse chronic interstitial lung disease/interstitial scarring. 2. Small region of patchy alveolar opacity seen in the right lower lobe on the comparison CT examination of the abdominal and pelvis, not demonstrated by the plain film chest radiograph. Dictated and Authenticated by: Kaveh Lara MD. Ordering:LUIS Porras MD
[2021-08-25 22:07] LABS: Lipase 46 U/L (73-393)
--- NOTE | 2021-08-25 22:48 | W.PM.HP.N ---
Date of service: 08/25/21 Time of Service: 22:48 Assessment and Plan Assessment and plan (1) Acute UTI: Start date: 08/25/21 Status: Acute Assessment and plan: This is a 70-year-old lady who presented with abdominal discomfort with symptoms and recent visit to her PCP this last week who tested positive for Covid with preoperative screening. She has chronic pulmonary fibrosis but no new symptoms. She manifested with abdominal pain which is recurrent when she has acute UTI. Her CT did show nonobstructive renal lithiasis with patient having no history of renal stones. She will be treated with IV Rocephin and gentle IV hydration. He did have a positive lactate which will be followed up in the morning. She was not septic. She has been eating and drinking well. (2) Pneumonia: Start date: 08/25/21 Status: Acute Assessment and plan: Patient will be placed on Rocephin and Zithromax with follow-up clinically and imaging. She may receive 5 antibodies because of positive test but normal symptoms. The infiltrates on CT was not seen on chest x-ray and may be part of her chronic fibrosis. She had only minimal elevation in WBC and no fever. Qualifiers: Laterality: right Lung location: lower lobe of lung Pneumonia type: due to unspecified organism Qualified Code(s): J18.9 - Pneumonia, unspecified organism (3) Pulmonary fibrosis: Status: Chronic Assessment and plan: Patient chronically has O2 supplementation and watch for deterioration with positive Covid and question of right lower lobe pneumonia. Continue respiratory care. (4) Renal stones: Status: Chronic Assessment and plan: This appears to be a chronic problem which will be followed up as an outpatient. Presently it is not complicating her acute UTI. History of Present Illness Narrative: This 70-year-old female with history of pulmonary fibrosis, CVA, bronchitis, essential tremor presents with report of weakness, abdominal pain, dysuria. Patient states she was recently treated for urinary tract infection and had similar symptoms. She completed the course of antibiotic and was doing well until earlier this week, she presents today secondary to weakness and worsening pain. She denies fevers at home. She has not been on an antibiotic recently as her PCP was pending repeat culture given her recent urinary tract infection. This is she was ED by her PCP this last week for medical clearance for cataract surgery and at that time was advised to to go the ED i for immediate evaluation lab with no labs or evaluation often in the was at that time. The patient did not go to the ED at that time because of lack of transportation. Her pain remained persistent but not worsen. She denies any chest pain or shortness of breath. She has had no abdominal bloating or change in bowel habits.She has had no fever. She incidentally was diagnosed with COVID-19 on a routine presurgical swab yesterday. She is asymptomatic for this positive test with respiratory symptoms stable wit no fever or production of sputum. She has been Covid vaccinated. Denies prior history of ureteral or nephrolithiasis. She does have chronic pain and at times is difficultt to interpret with acute pain presentation. Review of Systems Narrative: 13 point review of systems otherwise unrevealing or stable. PFSH All Active Problems Pneumonia (Acute) Renal stones (Chronic) Calcium ureterolithiasis (Acute) Hip pain (Acute) Fall (Acute) Chest wall pain (Acute) Hypokalemia (Acute) Stress at home (Acute) SOB (shortness of breath) (Acute) Acute UTI (Acute) Essential tremor (Acute) Pre-diabetes (Acute) Stroke (Chronic) Cellulitis of left wrist (Acute) Arthritis of left wrist (Acute) Fracture of middle phalanx of left ring finger (Acute) Pulmonary fibrosis (Chronic) Patient had previous work-up by Dr. Ferrara in [facility] in March 2018. Patient reports that her PFTs did not show underlying COPD, patient has a follow-up with Dr. Giron in February 16, 2019 Bronchitis (Acute) Medical History Chronic back pain Fibromyalgia Hypertension Osteoarthritis Surgical History Hx of ultrasound guided needle biopsy of lung S/P cholecystectomy S/P gastric bypass S/P hernia repair S/P hysterectomy Family History Mother Stroke Maternal Grandmother Stroke Maternal Uncle Stroke Social History Smoking/Tobacco Use Status: Never Second Hand Exposure: Yes (Secondary to her parents as well as ) Smoking risk assessment performed?: Yes Alcohol Intake: never Drug use: Never Substance use type: does not use Household members: family and children Housing: other Details: moble home Number of Children: 5 number of grandchildren: 8 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 Pets and animals: Yes Pets and animals: dog(s) Current gender identity: female What is your relationship status?: Panel score (0-1 are the most socially isolated patients): 0 What type of physical activity do you participate in: walking Frequency: daily Seatbelt use: always Do you feel safe at home: Yes Do you feel safe in your relationship?: Yes History History 4 Para Hx # Term Pregnancies 4 Multiple births Hx # Pregnancies Ectopic pregnancies AB induced Hx Number of Living Children AB spontaneous Meds Allergies and Home Medications Allergies Allergy/AdvReac Type Severity Reaction Status Date / Time Sulfa (Sulfonamide Allergy Severe Anaphylaxis Unverified 08/25/21 19:22 Antibiotics) levofloxacin Allergy Intermediate Other (See Unverified 08/25/21 19:22 Comment) Home Medications Medication Instructions Recorded Confirmed Type ipratropium-albuterol 3 ml UPD Q4H PRN PRN #180 ml 12/25/18 08/25/21 Rx mycophenolate mofetil 1,000 mg PO BID 12/14/19 08/25/21 History nintedanib 150 mg PO BID 12/14/19 08/25/21 History albuterol sulfate 2 puff INHALATION Q4H PRN PRN 11/24/20 08/25/21 History aspirin 81 mg PO DAILY #30 tab 11/24/20 08/25/21 Rx benzonatate 100 mg PO TID 11/24/20 08/25/21 History fluticasone propionate 2 spray INTRANASAL DAILY 11/24/20 08/25/21 History megestrol 5 ml PO DAILY 11/24/20 08/25/21 History oxycodone 5 mg PO HS 11/24/20 08/25/21 History tramadol 50 mg PO 6XD PRN 11/24/20 08/25/21 History cyanocobalamin (vitamin B-12) 1,000 mcg PO DAILY 01/11/21 08/25/21 History [Vitamin B-12] atorvastatin 10 mg tablet 10 mg PO QHS #90 tab 01/31/21 08/25/21 Rx losartan-hydrochlorothiazide 1 tab PO DAILY 03/01/21 08/25/21 History Exam Narrative Exam Narrative: General: Patient appears older than stated age with muscle wasting diffusely and thin over the trunk but obese over lower extremities especially with no edema but weight loss over the recent years because of respiratory symptoms with fibrosis advancing. She has a flattened affect with fair eye contact. Alert and oriented x3. Moderate distress from her abdominal discomfort. HEENT: Normocephalic, coarsened facial features. Eyes with pupils equal and reactive to light symmetrically, extraocular movement intact and sclera anicteric. Oropharynx with dry mucosa. Neck: Supple without JVD. Back: Stooped posture without CVA tenderness. Lungs: Decreased aeration diffusely with fair aeration but decreased over right base with inspiratory coarse crackles right base. No rhonchi no expiratory wheeze. Heart: Regular rate and rhythm with no murmurs or gallops. Breast: Exam deferred. Abdomen: Normal contour and soft, tender to palpation over lower abdomen with no guarding or focal rebound. Patient is uncomfortable with deep palpation over lower abdomen. Bowel sounds positive all quadrants. No tympany. Genitalia/rectal: Exam deferred Extremity: Nonpitting edema lower extremities, fair capillary refill, all joints have decreased range of motion but no acute swelling. No clubbing or cyanosis. Skin: Normal color, warm and dry. Fair turgor. Neuro: Cranial nerves II through XII grossly intact, no focalizing motor deficits. Psych: Depressed mood and flattened affect but good eye contact. No abnormal thought processes. Remote and recent memory intact. Results Imaging Imaging Studies: Exam: CT Abdomen And Pelvis With Contrast Exam date and time: 08/25/2021 7:44 PM Age: 70 years old Clinical indication: Localized; Prior surgery; Patient HX: Lower abdominal pain, recurrent UTI TECHNIQUE: Imaging protocol: Computed tomography of the abdomen and pelvis with contrast. COMPARISON: XR PELVIS AP 03/01/2021 5:40 PM FINDINGS: Limitations: Paucity of intra-abdominal fat. Lungs: Extensive reticular opacity throughout the lower lung zones bilaterally with a somewhat peripheral distribution. Interstitial scarring suspected. Traction bronchiectasis also present. Asymmetric patchy alveolar opacity on the right. Small volume of aspiration? Acute pulmonary infection? Liver: Liver partially obscured by streak artifact but grossly unremarkable, as seen. Gallbladder and bile ducts: Prior cholecystectomy with prominent intrahepatic and extrahepatic biliary dilatation with the common bile duct measuring 1.8 cm maximum transverse dimension. No distally obstructing stone or mass demonstrated. Pancreas: Pancreas partially obscured but demonstrating moderate-severe atrophy. Spleen: Spleen partially obscured by streak artifact but grossly unremarkable, as seen. Adrenal glands: Normal appearing adrenal glands. Kidneys and ureters: 4 mm nonobstructing left renal calculus. Normal-appearing right kidney. No hydronephrosis. Stomach and bowel: Stomach partially obscured by streak artifact created by metallic surgical material in the left upper quadrant. Prior gastric surgery. Gastric bypass with gastrojejunostomy? Correlation with surgical history recommended. Enteroenteric anastomosis located in the left upper quadrant. No small bowel dilatation to suggest obstruction. Normal-appearing colon. No evidence of diverticulitis or colitis. Appendix: Appendix not identified, obscured if present. Correlation with surgical history recommended. If there is clinical concern for acute appendicitis and the patient still has an appendix, additional evaluation would be recommended. No gross pericecal inflammatory change. Intraperitoneal space: No gross ascites or free air. Vasculature: Tortuous abdominal aorta, normal in caliber. Lymph nodes: No pathologically enlarged mesenteric, retroperitoneal, or pelvic sidewall lymph nodes. Urinary bladder: Urinary bladder partially collapsed but grossly unremarkable, as seen. Reproductive: Prior hysterectomy. Ovaries not identified, obscured if present. Correlation with surgical history recommended. Bones/joints: No acute fracture seen among the bones of the abdomen or pelvis. Spinal degenerative change with discogenic degeneration and anterior osteophytes at multiple levels. Soft tissues: Coarse subcutaneous calcifications in the flanks, probably dystrophic calcifications from old fat necrosis in the setting of prior trauma or injection granulomas. Diastasis recti. No significant ventral or inguinal hernia. IMPRESSION: 1. Prior gastric surgery, probably a gastric bypass procedure with gastrojejunostomy although correlation with surgical history is recommended. No acute bowel pathology is demonstrated. 2. 4 mm nonobstructing left renal calculus. No hydronephrosis. 3. Prior cholecystectomy with prominent intrahepatic and extrahepatic biliary dilatation, possibly a postoperative appearance but more dilated than generally seen. Within the limits of the exam, no distally obstructing stone or mass is demonstrated. Clinical correlation recommended. 4. Chronic interstitial scarring throughout both lung bases with traction bronchiectasis. 5. Patchy alveolar opacity in the right lower lobe suspicious for small volume of aspiration or pneumonia. Dictated and Authenticated by: Kaveh Lara MD. Exam: XR Chest Exam date and time: 08/25/2021 9:01 PM Age: 70 years old Clinical indication: Shortness of breath; Patient HX: SOB TECHNIQUE: Imaging protocol: XR of the chest. Views: 1 view. COMPARISON: CR XR PORTABLE CHEST AP 05/21/2021 1:44 PM, CT abdomen and pelvis August 25, 2021. FINDINGS: Lungs: Diffuse reticular interstitial thickening with an appearance suggesting chronic interstitial lung disease/interstitial scarring. No pulmonary consolidation demonstrated. Pleural spaces: No pleural effusion or pneumothorax seen. Heart/Mediastinum: Normal sized heart. Bones/joints: Visualized bony structures grossly intact, as seen. Gastrointestinal tract: Clustered surgical clips projecting over the proximal stomach with an appearance suggesting prior gastric surgery. Organs: Surgical clips in the right upper quadrant in a location suggesting a prior cholecystectomy. IMPRESSION: 1. Diffuse chronic interstitial lung disease/interstitial scarring. 2. Small region of patchy alveolar opacity seen in the right lower lobe on the comparison CT examination of the abdominal and pelvis, not demonstrated by the plain film chest radiograph. Dictated and Authenticated by: Kaveh Lara MD. Labs Result diagrams: 08/26/21 05:50 08/26/21 05:50 Labs: Laboratory Results - last 24 hr 08/25/21 08/25/21 08/25/21 19:11 19:25 19:25 WBC RBC Hgb Hct MCV MCH MCHC RDW Plt Count MPV Immature Gran % Neutrophils % Lymphocytes % Monocytes % Eosinophils % Basophils % Nucleated RBC % Absolute Neutrophils Absolute Lymphocytes Absolute Monocytes Absolute Eosinophils Absolute Basophils VBG Lactate 3.1 H* Sodium 141 Potassium 4.5 Chloride 105 Carbon Dioxide 25.3 Anion Gap 10.7 BUN 18 Creatinine 1.0 Estimated GFR/1.73 m2 54.81 Glucose 57 L Glucose 1 Hr Postprand Calcium 8.7 Total Bilirubin 0.3 AST 40 H ALT 18 Alkaline Phosphatase 105 Troponin I < 50 Total Protein 7.5 Albumin 3.4 Lipase Urine Color Yellow Urine Clarity Cloudy Urine pH 5.5 Ur Specific [place] >= 1.030 H Urine Protein >=300 H Urine Ketones Negative Urine Blood Small H Urine Nitrite Positive H Urine Bilirubin Negative Urine Urobilinogen 0.2 Ur Leukocyte Esterase Trace H Urine RBC 3-5 H Urine WBC 10-20 H Ur Epithelial Cells Few Urine Crystals Negative Urine Bacteria Many Urine Casts Negative Urine Mucus Moderate Ur Culture Indicated? Yes Urine Glucose Negative 08/25/21 08/25/21 08/25/21 19:25 21:30 21:30 WBC 11.68 H RBC 4.01 Hgb 12.6 Hct 41.7 MCV 104.0 H MCH 31.4 MCHC 30.2 L RDW 13.8 Plt Count 440 H MPV 8.7 Immature Gran % 0.5 Neutrophils % 79.7 Lymphocytes % 10.8 Monocytes % 7.6 Eosinophils % 1.0 Basophils % 0.4 Nucleated RBC % 0 Absolute Neutrophils 9.31 H Absolute Lymphocytes 1.26 Absolute Monocytes 0.89 H Absolute Eosinophils 0.12 Absolute Basophils 0.05 VBG Lactate Sodium Potassium Chloride Carbon Dioxide Anion Gap BUN Creatinine Estimated GFR/1.73 m2 Glucose Glucose 1 Hr Postprand 110 Calcium Total Bilirubin AST ALT Alkaline Phosphatase Troponin I Total Protein Albumin Lipase 46 Urine Color Urine Clarity Urine pH Ur Specific [place] Urine Protein Urine Ketones Urine Blood Urine Nitrite Urine Bilirubin Urine Urobilinogen Ur Leukocyte Esterase Urine RBC Urine WBC Ur Epithelial Cells Urine Crystals Urine Bacteria Urine Casts Urine Mucus Ur Culture Indicated? Urine Glucose Last Vital Signs Temp 36.4 C L 08/25/21 21:35 Pulse 84 08/25/21 22:02 Resp 23 08/25/21 22:30 BP 123/63 08/25/21 22:02 Pulse Ox 97 08/25/21 22:30
[2021-08-26] VITALS (11 sets, daily range): BP systolic 120–143; BP diastolic 65–78; PULSE 81–89; RESP 18–20; TEMP 37.1–38.1; O2SAT 93–96
[2021-08-26] MEDS: Atorvastatin 10 MG TAB PO ×2 (01:10→21:20)
[2021-08-26] MEDS: DOXYCYCLINE 100 MG in Normal Saline 100 ML IVPB ×2 (01:12→11:08)
[2021-08-26] MEDS: Normal Saline 1,000 ML 100 ML IV (01:12)
[2021-08-26] MEDS: traMADol 50 MG TAB PO ×3 (05:41→17:59)
[2021-08-26 06:04] LABS: Lactate 0.7 mmol/L (0.6-1.4)
[2021-08-26 06:14] LABS: Abs Immature Grans 0.04 10^3/uL (0.0-0.06); Absolute Basophil Count 0.02 10^3/uL (0.0-0.2); Absolute Eosinophil Count 0.08 10^3/uL (0.0-0.7); Absolute Lymphocyte Count 1.07 10^3/uL (1.2-3.4); Absolute Monocyte Count 0.75 10^3/uL (0.1-0.8); Basophils % 0.3; HCT 35.3 % (36.0-46.0); HGB 10.8 g/dL (11.2-15.7); Immature Grans % 0.5; Lymphocytes % 13.8; MCH 30.9 pg (27.0-33.0); MCHC 30.6 % (32.0-36.0); MCV 101.1 fL (80-95); MPV 8.7 fL (8.0-11.0); Monocytes % 9.7; Neutrophils % 74.7; Nucleated RBC 0 %; Platelet Count 339 10^3/uL (130-400); RBC 3.49 10^6/uL (3.93-5.22); RDW-SD 51.4 fL; WBC 7.76 10^3/uL (4.4-10.8)
[2021-08-26 06:33] LABS: ALT 13 U/L (14-59); AST 22 U/L (15-37); Albumin 2.5 g/dL (3.4-5.0); Alkaline Phosphatase 78 U/L (46-116); Anion Gap 8.8 mmol/L (3-11); BUN 14 mg/dL (7-18); Bilirubin, Total 0.2 mg/dL (0.2-1.0); CO2 24.2 mmol/L (21.0-32.0); CREATININE 0.9 mg/dL (0.55-1.02); Calcium 7.9 mg/dL (8.5-10.1); Chloride 109 mmol/L (98-107); Glucose 92 mg/dL (74-106); Potassium 3.7 mmol/L (3.5-5.1); Sodium 142 mmol/L (136-145); Total Protein 5.6 g/dL (6.4-8.2)
--- NOTE | 2021-08-26 09:25 | INITIAL_ITS ---
- If Service Date Differs Date of service: 08/26/21 Time of Service: 09:26 Care Management Initial Assess REASON FOR HOSPITALIZATION:: UTI, Renal Stone, RLL Pneumonia, Covid PAST MEDICAL HISTORY/PAST SURGICAL HISTORY:: All Active Problems . Pneumonia (Acute). Renal stones (Chronic). Calcium ureterolithiasis (Acute). Hip pain (Acute). Fall (Acute). Chest wall pain (Acute). Hypokalemia (Acute). Stress at home (Acute). SOB (shortness of breath) (Acute). Acute UTI (Acute). Essential tremor (Acute). Pre-diabetes (Acute). Stroke (Chronic). Cellulitis of left wrist (Acute). Arthritis of left wrist (Acute). Fracture of middle phalanx of left ring finger (Acute). Pulmonary fibrosis (Chronic). Patient had previous work-up by Dr. Ferrara in [facility] in March 2018. Patient reports that her PFTs did not show underlying COPD, patient has a follow-up with Dr. Giron in February 16, 2019. Bronchitis (Acute). Medical History . Chronic back pain. Fibromyalgia. Hypertension. Osteoarthritis. Surgical History . Hx of ultrasound guided needle biopsy of lung. S/P cholecystectomy. S/P gastric bypass. S/P hernia repair. S/P hysterectomy PREVIOUS FUNCTIONAL STATUS/SOCIAL/FAMILY SUPPORTS:: Ashley lives in a mobile home in [place] [facility] [place] with her daughter Marimar. She has a total of 5 children - 3 girls and 2 boys. Ashley is independent at baseline and does all of her own shopping, housework and personal care and continues to drive. 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 Ashley is , having lost her to lung cancer about 12 years ago. CURRENT FUNCTIONAL STATUS:: Ashley is being treated with ABX and Remdesivir for Covid pneumonia and UTI. She is on precautions therefor CM met with her over the phone. She was pleasant and easily engaged in conversation. She denies SOB and is on room air. She has a hx of pulmonary fibrosis. Ashley is up independently in her room and has no concerns at this time. CM will continue to support discharge planning needs. ADVANCE DIRECTIVES:: Ashley states that she has Advanced Directives but that they are filed in [place], not [facility]. She identified her daughter Kala as her HCA. [phone]. Has patient been provided with info about the portal/API?: Yes Did the patient sign up for the portal?: No CODE STATUS:: Full Code INSURANCE COVERAGE / FINANCIAL ISSUES:: Medicaid. Medicare CURRENT HOME/COMMUNITY SERVICES/EQUIPMENT:: None PRIMARY CARE PHYSICIAN:: Rober Cho POTENTIAL DISCHARGE NEEDS:: Follow up with PCP and discharge plan of care PATIENT/FAMILY EDUCATION NEEDS:: Review of discharge instrutions, follow up plan, limitations and Ask Me Three. TRANSPORTATION:: via private vehicle with family PLAN:: Ashley will likely be discharged home with no new services. She will follow up with her community providers and discharge plan of care and transport with family. CM will continue to support Ashley and her family and assess for ongoing discharge needs. Children: Kala - HCA . Dona- . Melquiades - . Marimar - daughter Ashley lives with -
[2021-08-26] MEDS: Fluticasone NASAL SPRAY 16 GM BTL NS (09:34)
[2021-08-26] MEDS: REMDESIVIR 200 MG in Normal Saline 250 ML 250 MG IVPB (09:34)
[2021-08-26] MEDS: Enoxaparin 30 MG/0.3 ML SYR SC (09:38)
[2021-08-26] MEDS: Cyanocobalamin 500 MCG TAB 1000 MCG PO (09:40)
[2021-08-26] MEDS: hydroCHLOROthiazide 12.5 MG TAB PO (09:40)
[2021-08-26] MEDS: Losartan 50 MG TAB PO (09:40)
[2021-08-26] MEDS: Benzonatate 100 MG CAP PO ×3 (09:40→21:20)
[2021-08-26] MEDS: Aspirin E.C. 81 MG TABEC PO (09:40)
[2021-08-26] MEDS: Normal Saline Flush 10 ML SYR ×2 (09:42→21:22)
--- NOTE | 2021-08-26 13:45 | PGE_ITS ---
Date of Service Date of service: 08/26/21 Time of Service: 13:46 Assessment and Plan Assessment and plan (1) Acute UTI: Status: Acute Assessment and plan: awaiting culture reports, continue ceftriaxone day 2 (2) Pneumonia: Status: Acute Assessment and plan: covid positive on azithromycin and ceftriaxone day 2 remdesivir initiated. monitor respiratory status closely Qualifiers: Laterality: right Lung location: lower lobe of lung Pneumonia type: due to unspecified organism Qualified Code(s): J18.9 - Pneumonia, unspecified organism (3) Pulmonary fibrosis: Status: Chronic Assessment and plan: Patient chronically has O2 supplementation and watch for deterioration with positive Covid and question of right lower lobe pneumonia. Continue respiratory care. (4) Renal stones: Status: Chronic Assessment and plan: This appears to be a chronic problem which will be followed up as an outpatient. Presently it is not complicating her acute UTI. discussed with Dr Roper Subjective Subjective Patient reports: no new complaints, tolerating liquids well, tolerating a regular diet and afebrile; denies shortness of breath Exam Const General: cooperative and comfortable Eyes Pupils: PERRL Resp Effort & Inspection: normal respiratory effort Auscultation: diminished lung sounds Cardio Rate: regular rate Rhythm: regular rhythm GI Inspection: normal to inspection Auscultation: normal bowel sounds Skin General skin exam: no rashes or lesions noted Neuro General: patient alert and patient oriented x3 Objective Last Vital Signs Temp 37.4 C 08/26/21 12:23 Pulse 88 08/26/21 12:23 Resp 18 08/26/21 12:23 BP 129/74 08/26/21 12:23 Pulse Ox 93 08/26/21 12:23 Laboratory Results - last 24 hr 08/25/21 08/25/21 08/25/21 19:11 19:25 19:25 WBC RBC Hgb Hct MCV MCH MCHC RDW Plt Count MPV Immature Gran % Neutrophils % Lymphocytes % Monocytes % Eosinophils % Basophils % Nucleated RBC % Absolute Neutrophils Absolute Lymphocytes Absolute Monocytes Absolute Eosinophils Absolute Basophils VBG Lactate 3.1 H* Sodium 141 Potassium 4.5 Chloride 105 Carbon Dioxide 25.3 Anion Gap 10.7 BUN 18 Creatinine 1.0 Estimated GFR/1.73 m2 54.81 Glucose 57 L Glucose 1 Hr Postprand Calcium 8.7 Total Bilirubin 0.3 AST 40 H ALT 18 Alkaline Phosphatase 105 Troponin I < 50 Total Protein 7.5 Albumin 3.4 Lipase Urine Color Yellow Urine Clarity Cloudy Urine pH 5.5 Ur Specific [place] >= 1.030 H Urine Protein >=300 H Urine Ketones Negative Urine Blood Small H Urine Nitrite Positive H Urine Bilirubin Negative Urine Urobilinogen 0.2 Ur Leukocyte Esterase Trace H Urine RBC 3-5 H Urine WBC 10-20 H Ur Epithelial Cells Few Urine Crystals Negative Urine Bacteria Many Urine Casts Negative Urine Mucus Moderate Ur Culture Indicated? Yes Urine Glucose Negative 08/25/21 08/25/21 08/25/21 19:25 21:30 21:30 WBC 11.68 H RBC 4.01 Hgb 12.6 Hct 41.7 MCV 104.0 H MCH 31.4 MCHC 30.2 L RDW 13.8 Plt Count 440 H MPV 8.7 Immature Gran % 0.5 Neutrophils % 79.7 Lymphocytes % 10.8 Monocytes % 7.6 Eosinophils % 1.0 Basophils % 0.4 Nucleated RBC % 0 Absolute Neutrophils 9.31 H Absolute Lymphocytes 1.26 Absolute Monocytes 0.89 H Absolute Eosinophils 0.12 Absolute Basophils 0.05 VBG Lactate Sodium Potassium Chloride Carbon Dioxide Anion Gap BUN Creatinine Estimated GFR/1.73 m2 Glucose Glucose 1 Hr Postprand 110 Calcium Total Bilirubin AST ALT Alkaline Phosphatase Troponin I Total Protein Albumin Lipase 46 Urine Color Urine Clarity Urine pH Ur Specific [place] Urine Protein Urine Ketones Urine Blood Urine Nitrite Urine Bilirubin Urine Urobilinogen Ur Leukocyte Esterase Urine RBC Urine WBC Ur Epithelial Cells Urine Crystals Urine Bacteria Urine Casts Urine Mucus Ur Culture Indicated? Urine Glucose 08/26/21 08/26/21 08/26/21 05:50 05:50 05:50 WBC 7.76 D RBC 3.49 L Hgb 10.8 L Hct 35.3 L MCV 101.1 H MCH 30.9 MCHC 30.6 L RDW 14.0 Plt Count 339 D MPV 8.7 Immature Gran % 0.5 Neutrophils % 74.7 Lymphocytes % 13.8 Monocytes % 9.7 Eosinophils % 1.0 Basophils % 0.3 Nucleated RBC % 0 Absolute Neutrophils 5.80 Absolute Lymphocytes 1.07 L Absolute Monocytes 0.75 Absolute Eosinophils 0.08 Absolute Basophils 0.02 VBG Lactate 0.7 Sodium 142 Potassium 3.7 Chloride 109 H Carbon Dioxide 24.2 Anion Gap 8.8 BUN 14 Creatinine 0.9 Estimated GFR/1.73 m2 >= 60.00 Glucose 92 Glucose 1 Hr Postprand Calcium 7.9 L Total Bilirubin 0.2 AST 22 ALT 13 L Alkaline Phosphatase 78 Troponin I Total Protein 5.6 L Albumin 2.5 L Lipase Urine Color Urine Clarity Urine pH Ur Specific [place] Urine Protein Urine Ketones Urine Blood Urine Nitrite Urine Bilirubin Urine Urobilinogen Ur Leukocyte Esterase Urine RBC Urine WBC Ur Epithelial Cells Urine Crystals Urine Bacteria Urine Casts Urine Mucus Ur Culture Indicated? Urine Glucose
[2021-08-26] MEDS: Acetaminophen 325 MG TAB 650 MG PO (21:20)
[2021-08-26] MEDS: cefTRIAXone 1 GM/50 ML BAG IVPB (21:21)
[2021-08-26] MEDS: oxyCODONE 5 MG TAB PO (21:21)
[2021-08-27] VITALS (9 sets, daily range): BP systolic 129–148; BP diastolic 74–91; PULSE 72–86; RESP 18–22; TEMP 36.6–37.6; O2SAT 92–98
[2021-08-27] MEDS: DOXYCYCLINE 100 MG in Normal Saline 100 ML IVPB (00:19)
[2021-08-27] MEDS: traMADol 50 MG TAB PO ×3 (06:10→16:17)
[2021-08-27 07:03] LABS: Abs Immature Grans 0.05 10^3/uL (0.0-0.06); Absolute Basophil Count 0.04 10^3/uL (0.0-0.2); Absolute Eosinophil Count 0.08 10^3/uL (0.0-0.7); Absolute Monocyte Count 0.69 10^3/uL (0.1-0.8); Absolute Neutrophil Count 4.78 10^3/uL (1.2-6.7); Basophils % 0.6; Eosinophils % 1.1; HCT 35.1 % (36.0-46.0); HGB 10.7 g/dL (11.2-15.7); Immature Grans % 0.7; MCH 30.8 pg (27.0-33.0); MCHC 30.5 % (32.0-36.0); MCV 101.2 fL (80-95); MPV 8.7 fL (8.0-11.0); Monocytes % 9.7; Neutrophils % 66.9; Nucleated RBC 0 %; Platelet Count 288 10^3/uL (130-400); RBC 3.47 10^6/uL (3.93-5.22); RDW 14.1 % (11.7-14.6); RDW-SD 52.8 fL; WBC 7.14 10^3/uL (4.4-10.8)
[2021-08-27 07:20] LABS: Prothrombin Time 10.4 sec (9.3-11.0)
[2021-08-27 07:22] LABS: ALT 13 U/L (14-59); AST 25 U/L (15-37); Albumin 2.5 g/dL (3.4-5.0); Alkaline Phosphatase 70 U/L (46-116); Anion Gap 8.2 mmol/L (3-11); BUN 13 mg/dL (7-18); Bilirubin, Direct 0.1 mg/dL (0.0-0.2); Bilirubin, Total 0.2 mg/dL (0.2-1.0); C-Reactive Protein 3.69 mg/dL (0.0-0.3); CO2 23.8 mmol/L (21.0-32.0); CREATININE 0.8 mg/dL (0.55-1.02); Calcium 8.2 mg/dL (8.5-10.1); Chloride 107 mmol/L (98-107); Glucose 83 mg/dL (74-106); Magnesium 1.4 mg/dL (1.8-2.4); Potassium 3.5 mmol/L (3.5-5.1); Sodium 139 mmol/L (136-145); Total Protein 5.8 g/dL (6.4-8.2)
--- NOTE | 2021-08-27 07:25 | W.UROLOGYCON ---
Date of service: 08/27/21 Time of Service: 09:15 Assessment and Plan Assessment and plan (1) Renal stones: Status: Chronic Assessment and plan: I do not believe her stone is contributing to her acute urinary tract infection, so I do not think she needs any urgent or emergent intervention. I think it is most appropriate to wait for her final culture and sensitivity and treat her UTI with antibiotics alone. The patient is postmenopausal, so she might benefit from vaginal hormone replacement therapy for UTI prevention. In terms of her stone, I will order options would either be to monitor with periodic imaging or to treat the stone electively. Elective treatments could include ureteroscopy with holmium laser lithotripsy or ESWL therapy. Percutaneous nephrolithotomy can be offered for lower pole stones, but is usually reserved for larger stones. Since the patient has a positive Covid test, and since any of these surgical treatments would require a general anesthetic, we would want to wait at least 8 weeks before scheduling any elective procedure. Once the patient is discharged, I would like to see her in about 6 to 8 weeks so that we can discuss specific treatments and make the appropriate arrangements. History of Present Illness History of Present Illness Chief Complaint: Left kidney stone Narrative: This is a 70-year-old woman who is currently hospitalized with UTI symptoms. As part of her initial evaluation, a CT the abdomen and pelvis was obtained. A nonobstructing left lower pole stone was identified. I have been asked to see her for stone management. The patient was unaware of any prior stone history. She has no history of hyperparathyroidism or gout, but she has had gastric bypass surgery which puts her at risk for kidney stone formation. She has no history of pyelonephritis and no current complaints of flank pain. She does have some abdominal discomfort and a foul smell to her urine. As part of her initial evaluation, a Covid test was obtained and the patient is Covid positive. She is currently in isolation, so the consultation was done by phone only with no associated physical examination. Review of Systems Narrative: No fevers or chills No vision change or dysphasia No hx diabetes or thyroid dysfunction Shortness of breath due to pulmonary fibrosis. No hemoptysis No chest pain or palpitations Frequent BM, diarrhea. No constipation. No hepatitis, ulcers, jaundice Hx stroke. No seizures or peripheral neuropathy No bleeding disorders No gout PFSH All Active Problems Pneumonia (Acute) Renal stones (Chronic) Calcium ureterolithiasis (Acute) Hip pain (Acute) Fall (Acute) Chest wall pain (Acute) Hypokalemia (Acute) Stress at home (Acute) SOB (shortness of breath) (Acute) Acute UTI (Acute) Essential tremor (Acute) Pre-diabetes (Acute) Stroke (Chronic) Cellulitis of left wrist (Acute) Arthritis of left wrist (Acute) Fracture of middle phalanx of left ring finger (Acute) Pulmonary fibrosis (Chronic) Patient had previous work-up by Dr. Ferrara in [facility] in March 2018. Patient reports that her PFTs did not show underlying COPD, patient has a follow-up with Dr. Giron in February 16, 2019 Bronchitis (Acute) Medical History Chronic back pain Fibromyalgia Hypertension Osteoarthritis Surgical History Hx of ultrasound guided needle biopsy of lung S/P cholecystectomy S/P gastric bypass S/P hernia repair S/P hysterectomy Family History Mother Stroke Maternal Grandmother Stroke Maternal Uncle Stroke Social History Smoking/Tobacco Use Status: Never Second Hand Exposure: Yes (Secondary to her parents as well as ) Smoking risk assessment performed?: Yes Alcohol Intake: never Drug use: Never Substance use type: does not use Household members: family and children Housing: other Details: [facility] Number of Children: 5 number of grandchildren: 8 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 Pets and animals: Yes Pets and animals: dog(s) Current gender identity: female What is your relationship status?: Panel score (0-1 are the most socially isolated patients): 0 What type of physical activity do you participate in: walking Frequency: daily Seatbelt use: always Do you feel safe at home: Yes Do you feel safe in your relationship?: Yes History History 4 Para Hx # Term Pregnancies 4 Multiple births Hx # Pregnancies Ectopic pregnancies AB induced Hx Number of Living Children AB spontaneous Exam Narrative Exam Narrative: Vital signs are reviewed I have reviewed her current CT of the abdomen and pelvis along with her previous imaging studies. As best I can tell, the first mention of a left lower pole stone at our facility was in 2018 (CT of the chest). In comparing her current films with previous films, the stone has not increased in size or changed in position. I was able to find a CT report from [facility] [place] that indicates there is a nonobstructing left lower pole stone (same location as her current stone). The size of the stone is not specified. Her previous urine cultures, when positive, have grown E. coli. I do not see any positive cultures for Proteus or other urease splitting organisms. Results Last Vital Signs Temp 37.2 C 08/27/21 03:32 Pulse 86 08/27/21 03:32 Resp 20 08/27/21 03:32 BP 142/90 H 08/27/21 03:32 Pulse Ox 94 08/27/21 03:32 Labs Result diagrams: 08/27/21 06:30 08/27/21 06:30 Labs: Laboratory Results - last 24 hr 08/27/21 08/27/21 06:30 06:30 WBC 7.14 RBC 3.47 L Hgb 10.7 L Hct 35.1 L MCV 101.2 H MCH 30.8 MCHC 30.5 L RDW 14.1 Plt Count 288 MPV 8.7 Immature Gran % 0.7 Neutrophils % 66.9 Lymphocytes % 21.0 Monocytes % 9.7 Eosinophils % 1.1 Basophils % 0.6 Nucleated RBC % 0 Absolute Neutrophils 4.78 Absolute Lymphocytes 1.50 Absolute Monocytes 0.69 Absolute Eosinophils 0.08 Absolute Basophils 0.04 Sodium 139 Potassium 3.5 Chloride 107 Carbon Dioxide 23.8 Anion Gap 8.2 BUN 13 Creatinine 0.8 Estimated GFR/1.73 m2 >= 60.00 Glucose 83 Calcium 8.2 L Phosphorus 3.0 Magnesium 1.4 L Total Bilirubin 0.2 Conjugated Bilirubin 0.1 AST 25 ALT 13 L Alkaline Phosphatase 70 C-Reactive Protein 3.69 H Total Protein 5.8 L Albumin 2.5 L
[2021-08-27 07:40] LABS: Procalcitonin 0.1 ng/mL
[2021-08-27 07:51] LABS: Ferritin 77 ng/mL (8-252)
[2021-08-27 08:02] LABS: D-Dimer 677 ng/mlFEU (<500)
[2021-08-27] MEDS: Enoxaparin 30 MG/0.3 ML SYR SC (08:21)
[2021-08-27] MEDS: Cyanocobalamin 500 MCG TAB 1000 MCG PO (08:22)
[2021-08-27] MEDS: Benzonatate 100 MG CAP PO ×3 (08:22→21:08)
[2021-08-27] MEDS: hydroCHLOROthiazide 12.5 MG TAB PO (08:22)
[2021-08-27] MEDS: Normal Saline Flush 10 ML SYR IVP (08:23)
[2021-08-27] MEDS: Aspirin E.C. 81 MG TABEC PO (08:23)
[2021-08-27] MEDS: Losartan 50 MG TAB PO (08:23)
--- NOTE | 2021-08-27 08:30 | PDOC.CMPRO ---
- If Service Date Differs Date of service: 08/27/21 Time of Service: 08:30 Care Management Progress Note S/O: CM spoke with Ashley over the phone. She was pleasant and easily engaged in conversation. She met with Dr. Alonso over the phone today and he answered her questions. Ashley is not planning on having any procedures on her renal stone at this time, as Dr. Alonso did not feel like it was contributing to her UTI. Ashley has no new complaints and is feeling better over all. CM provided her with a word search book to help pass the time. A: 70 year old female admitted to [facility] on 08/25/2021 for UTI, Renal Stone, RLL Pneumonia, Covid. P: Ashley will likely be discharged home with no new services. She will follow up with her community providers and discharge plan of care and transport with family. CM will continue to support Ashley and her family and assess for ongoing discharge needs. Children: Kala - [facility] . Dona- . Melquiades - . Marimar - daughter Ashley lives with -
[2021-08-27] MEDS: Fluticasone NASAL SPRAY 16 GM BTL NS (08:33)
[2021-08-27] MEDS: MAGNESIUM SULFATE 2 GM/50 ML BAG IVPB (09:59)
--- NOTE | 2021-08-27 10:51 | PGE_ITS ---
Date of Service Date of service: 08/27/21 Time of Service: 10:52 Assessment and Plan Assessment and plan (1) Acute UTI: Status: Acute Assessment and plan: awaiting culture reports, continue ceftriaxone day 3 (2) Pneumonia: Status: Acute Assessment and plan: covid positive with no symptoms of hypoxia or worsening shortness of breath on doxycycline and ceftriaxone day 3, will stop doxycycline. remdesivir day 2/3. monitor respiratory status closely Qualifiers: Pneumonia type: due to unspecified organism Laterality: right Lung location: lower lobe of lung Qualified Code(s): J18.9 - Pneumonia, unspecified organism (3) Pulmonary fibrosis: Status: Chronic Assessment and plan: Patient has O2 supplementation at home if needed will continue to monitor for deterioration with positive Covid and question of right lower lobe pneumonia. Continue respiratory care. (4) Renal stones: Status: Chronic Assessment and plan: This appears to be a chronic problem which will be followed up as an outpatient. Presently it is not complicating her acute UTI. discussed with Dr Alonso and patient opts to not proceed with removal. (5) Discharge planning issues: Status: Acute Assessment and plan: anticipate discharge to home tomorrow with no services after she receives her remdesivir dose discussed with Dr Roper Subjective Subjective Patient reports: no new complaints, feels better, tolerating liquids well, tolerating a regular diet, voiding w/o difficulty (no further frequency or dysu severiano) and afebrile; denies shortness of breath Exam Const General: cooperative and comfortable Eyes Pupils: PERRL Resp Effort & Inspection: normal respiratory effort Auscultation: diminished lung sounds Cardio Rate: regular rate Rhythm: regular rhythm GI Inspection: normal to inspection Auscultation: normal bowel sounds Skin General skin exam: no rashes or lesions noted Neuro General: patient alert and patient oriented x3 Objective Last Vital Signs Temp 37.6 C H 08/27/21 08:19 Pulse 84 08/27/21 08:19 Resp 18 08/27/21 08:19 BP 148/81 H 08/27/21 08:19 Pulse Ox 92 08/27/21 08:19 Laboratory Results - last 24 hr 08/27/21 08/27/21 08/27/21 06:30 06:30 06:30 WBC 7.14 RBC 3.47 L Hgb 10.7 L Hct 35.1 L MCV 101.2 H MCH 30.8 MCHC 30.5 L RDW 14.1 Plt Count 288 MPV 8.7 Immature Gran % 0.7 Neutrophils % 66.9 Lymphocytes % 21.0 Monocytes % 9.7 Eosinophils % 1.1 Basophils % 0.6 Nucleated RBC % 0 Absolute Neutrophils 4.78 Absolute Lymphocytes 1.50 Absolute Monocytes 0.69 Absolute Eosinophils 0.08 Absolute Basophils 0.04 PT INR D-Dimer Sodium 139 Potassium 3.5 Chloride 107 Carbon Dioxide 23.8 Anion Gap 8.2 BUN 13 Creatinine 0.8 Estimated GFR/1.73 m2 >= 60.00 Glucose 83 Calcium 8.2 L Phosphorus 3.0 Magnesium 1.4 L Ferritin 77 Total Bilirubin 0.2 Conjugated Bilirubin 0.1 AST 25 ALT 13 L Alkaline Phosphatase 70 C-Reactive Protein 3.69 H Total Protein 5.8 L Albumin 2.5 L Procalcitonin 0.1 08/27/21 06:30 WBC RBC Hgb Hct MCV MCH MCHC RDW Plt Count MPV Immature Gran % Neutrophils % Lymphocytes % Monocytes % Eosinophils % Basophils % Nucleated RBC % Absolute Neutrophils Absolute Lymphocytes Absolute Monocytes Absolute Eosinophils Absolute Basophils PT 10.4 INR 1.0 D-Dimer 677 H Sodium Potassium Chloride Carbon Dioxide Anion Gap BUN Creatinine Estimated GFR/1.73 m2 Glucose Calcium Phosphorus Magnesium Ferritin Total Bilirubin Conjugated Bilirubin AST ALT Alkaline Phosphatase C-Reactive Protein Total Protein Albumin Procalcitonin
--- NOTE | 2021-08-27 11:39 | PHA.REVIEW ---
Pharmacy Admission Review - Admission Clinical Review (Last Reviewed 08/25/21 @ 23:06 by Rober Cho) Pneumonia (Acute) Acute UTI (Acute) Sulfa (Sulfonamide Antibiotics) Allergy (Severe, Unverified 08/25/21 19:22) Anaphylaxis levofloxacin Allergy (Intermediate, Unverified 08/25/21 19:22) Other (See Comment) Resuscitation Status Full Code Height 5 ft Weight 42.638 kg - Renal Dosing Renal Dosing: BUN 13 mg/dL (7-18) 08/27/21 06:30 Creatinine 0.8 mg/dL (0.55-1.02) 08/27/21 06:30 Medications needing adjustments: Reviewed (Crcl ~44 mL/min current meds) - Anticoagulation Anticoagulation: Hgb 10.7 g/dL (11.2-15.7) L 08/27/21 06:30 Hct 35.1 % (36.0-46.0) L 08/27/21 06:30 Plt Count 288 10^3/uL (130-400) 08/27/21 06:30 INR 1.0 (0.9-1.1) 08/27/21 06:30 Creatinine 0.8 mg/dL (0.55-1.02) 08/27/21 06:30 DVT Prophylaxis: Intervened Medications: Enoxaparin (dosing adjusted due to pts weight (less than 45 kg) and renal dysfunction on admission. Covid anticoagulation recommendations not applicable right now as pt is not requiring oxygen.) Therapeutic Anticoagulation: N/A - Opiate Usage Evaluate Pain Scale/Pains Meds: Reviewed Scheduled Bowel Reg ordered if on Opiates?: No (has PRN meds ordered) - Relevant Labs Sodium 139 mmol/L (136-145) 08/27/21 06:30 Potassium 3.5 mmol/L (3.5-5.1) 08/27/21 06:30 Chloride 107 mmol/L (98-107) 08/27/21 06:30 Phosphorus 3.0 mg/dL (2.6-4.7) 08/27/21 06:30 Magnesium 1.4 mg/dL (1.8-2.4) L 08/27/21 06:30 C-Reactive Protein 3.69 mg/dL (0.0-0.3) H 08/27/21 06:30 Electrolytes, C-Reactive P, ESR: Reviewed (mag and K+ replacement ordered) - DM Control DM Control: Glucose 83 mg/dL (74-106) 08/27/21 06:30 Insulin Dosing: N/A - Heart Failure/WA Heart Failure/WA: Troponin I < 50 ng/L (<or=60) 08/25/21 19:25 EF%, JAYDEN's, B-Blockers, Diuretics: Reviewed - BP Control BP Control: Blood Pressure 148/81 Blood Pressure 142/90 Blood Pressure 130/80 If elevated: Reviewed (BP has been normal to high so far this admission. Losartan and HCTZ currently ordered.) - Qtc Review If Elevated: N/A (QTc 431 on admission) - IV to PO Switch IV Medications: Reviewed - Home Meds Home Med List reviewed: Reviewed (Multiple LICENSING DIRECTOR depressants.) Relevent Home Meds Not ordered & why?: All home meds are currently ordered. - Current meds Current Medication Order Review: Intervened (Discontinued DI meds that had already been given.) - Comments Comments/Follow Ups: Watch BP, mag, K+, SCr, labs and for med changes (possible renal dose adjustments, possible need of additional BM meds). Antibiotic Activity - Pharmacy Antibiotic Review Pharmacy Antibiotic Activity: Abx regimen adjustment (Ceftriaxone continues for UTI (day 3 starts this evening), doxycycline discontinued today. BC no growth @24 hours, urine culture growing E.coli.)
[2021-08-27] MEDS: Acetaminophen 325 MG TAB 650 MG PO (16:17)
[2021-08-27] MEDS: oxyCODONE 5 MG TAB PO (21:08)
[2021-08-27] MEDS: Potassium Chloride 20 MEQ TABCR PO (21:08)
[2021-08-27] MEDS: Atorvastatin 10 MG TAB PO (21:09)
[2021-08-27] MEDS: cefTRIAXone 1 GM/50 ML BAG IVPB (21:10)
[2021-08-28] VITALS (8 sets, daily range): BP systolic 126–145; BP diastolic 70–95; PULSE 77–95; RESP 18–22; TEMP 36.9–37.4; O2SAT 90–97
[2021-08-28 07:08] LABS: Abs Immature Grans 0.04 10^3/uL (0.0-0.06); Absolute Basophil Count 0.04 10^3/uL (0.0-0.2); Absolute Eosinophil Count 0.16 10^3/uL (0.0-0.7); Absolute Lymphocyte Count 2.03 10^3/uL (1.2-3.4); Absolute Monocyte Count 0.61 10^3/uL (0.1-0.8); Absolute Neutrophil Count 3.48 10^3/uL (1.2-6.7); Basophils % 0.6; Eosinophils % 2.5; HCT 38.9 % (36.0-46.0); Immature Grans % 0.6; Lymphocytes % 31.9; MCH 30.8 pg (27.0-33.0); MCHC 30.8 % (32.0-36.0); MCV 99.7 fL (80-95); MPV 8.7 fL (8.0-11.0); Monocytes % 9.6; Neutrophils % 54.8; Nucleated RBC 0 %; Platelet Count 316 10^3/uL (130-400); RDW 13.9 % (11.7-14.6); RDW-SD 51.3 fL; WBC 6.36 10^3/uL (4.4-10.8)
[2021-08-28 07:29] LABS: ALT 13 U/L (14-59); AST 28 U/L (15-37); Albumin 2.5 g/dL (3.4-5.0); Alkaline Phosphatase 69 U/L (46-116); Anion Gap 7.9 mmol/L (3-11); BUN 15 mg/dL (7-18); Bilirubin, Total 0.2 mg/dL (0.2-1.0); CO2 26.1 mmol/L (21.0-32.0); CREATININE 0.7 mg/dL (0.55-1.02); Calcium 8.4 mg/dL (8.5-10.1); Chloride 105 mmol/L (98-107); Glucose 81 mg/dL (74-106); Potassium 3.8 mmol/L (3.5-5.1); Sodium 139 mmol/L (136-145); Total Protein 5.9 g/dL (6.4-8.2)
[2021-08-28] MEDS: Benzonatate 100 MG CAP PO ×3 (07:51→21:06)
[2021-08-28] MEDS: Cyanocobalamin 500 MCG TAB 1000 MCG PO (07:51)
[2021-08-28] MEDS: Normal Saline Flush 10 ML SYR IVP (07:52)
[2021-08-28] MEDS: Potassium Chloride 20 MEQ TABCR PO ×2 (07:52→21:07)
[2021-08-28] MEDS: Losartan 50 MG TAB PO (07:52)
[2021-08-28] MEDS: hydroCHLOROthiazide 12.5 MG TAB PO (07:52)
[2021-08-28] MEDS: Enoxaparin 30 MG/0.3 ML SYR SC (07:52)
[2021-08-28] MEDS: Aspirin E.C. 81 MG TABEC PO (07:52)
[2021-08-28] MEDS: Fluticasone NASAL SPRAY 16 GM BTL NS (07:53)
[2021-08-28] MEDS: Acetaminophen 325 MG TAB 650 MG PO (12:11)
[2021-08-28] MEDS: Ondansetron O.D.T. 4 MG TABEF PO (12:18)
[2021-08-28] MEDS: Loperamide 2 MG CAP PO (13:57)
--- NOTE | 2021-08-28 14:51 | W.PM.PROGNOT ---
Date of Service Date of service: 08/28/21 Time of Service: 14:52 Assessment and Plan Assessment and plan (1) Acute UTI: Status: Acute Assessment and plan: awaiting culture reports, continue ceftriaxone day 3 (2) Pneumonia: Status: Acute Assessment and plan: covid positive with no symptoms of hypoxia or worsening shortness of breath on doxycycline and ceftriaxone day 3, will stop doxycycline. remdesivir day 2/3. monitor respiratory status closely Qualifiers: Laterality: right Lung location: lower lobe of lung Pneumonia type: due to unspecified organism Qualified Code(s): J18.9 - Pneumonia, unspecified organism (3) Pulmonary fibrosis: Status: Chronic Assessment and plan: Patient has O2 supplementation at home if needed will continue to monitor for deterioration with positive Covid and question of right lower lobe pneumonia. Continue respiratory care. (4) Renal stones: Status: Chronic Assessment and plan: This appears to be a chronic problem which will be followed up as an outpatient. Presently it is not complicating her acute UTI. discussed with Dr Alonso and patient opts to not proceed with removal. (5) Discharge planning issues: Status: Acute Assessment and plan: anticipate discharge to home tomorrow with no services after she receives her remdesivir dose discussed with Dr Roper Subjective Subjective Patient reports: tolerating liquids well, voiding w/o difficulty, diarrhea and afebrile Interval history since last seen: now having frequent diarrhea and abdominal cramping. Exam Const General: cooperative and comfortable Eyes Pupils: PERRL Resp Effort & Inspection: not able to speak in complete sentences and no audible wheezes Cardio Rate: regular rate Rhythm: regular rhythm GI Inspection: normal to inspection Auscultation: normal bowel sounds Skin General skin exam: no rashes or lesions noted Neuro General: patient alert and patient oriented x3 Objective Last Vital Signs Temp 37.4 C 08/28/21 12:07 Pulse 86 08/28/21 12:07 Resp 20 08/28/21 12:07 BP 126/82 08/28/21 12:07 Pulse Ox 97 08/28/21 12:07 Laboratory Results - last 24 hr 08/28/21 08/28/21 06:40 06:40 WBC 6.36 RBC 3.90 L Hgb 12.0 Hct 38.9 MCV 99.7 H MCH 30.8 MCHC 30.8 L RDW 13.9 Plt Count 316 MPV 8.7 Immature Gran % 0.6 Neutrophils % 54.8 Lymphocytes % 31.9 Monocytes % 9.6 Eosinophils % 2.5 Basophils % 0.6 Nucleated RBC % 0 Absolute Neutrophils 3.48 Absolute Lymphocytes 2.03 Absolute Monocytes 0.61 Absolute Eosinophils 0.16 Absolute Basophils 0.04 Sodium 139 Potassium 3.8 Chloride 105 Carbon Dioxide 26.1 Anion Gap 7.9 BUN 15 Creatinine 0.7 Estimated GFR/1.73 m2 >= 60.00 Glucose 81 Calcium 8.4 L Total Bilirubin 0.2 AST 28 ALT 13 L Alkaline Phosphatase 69 Total Protein 5.9 L Albumin 2.5 L
[2021-08-28 15:08] LABS: C Diff PCR Negative (Negative)
--- NOTE | 2021-08-28 17:15 | CMPROGNOTE_ITS ---
- If Service Date Differs Date of service: 08/28/21 Time of Service: 17:15 Care Management Progress Note S/O: Ashley continues to be monitored under Covid precautions. Per report, she vomited and had diarrhea today, CDiff study ordered, which delayed her discharge. She is asymptomatic for Covid, and will continue a three day course of Remdesivir prior to discharge tomorrow, per current guidelines. CM will continue to follow. A: 70 year old female admitted to [facility] on 08/25/2021 for UTI, Renal Stone, RLL Pneumonia, Covid. P: Ashley will likely be discharged home with no new services. She will follow up with her community providers and discharge plan of care and transport with family. CM will continue to support Aslhey and her family and assess for ongoing discharge needs. Children: Kala - [facility] . Dona- [phone]. Melquiades - . Marimar - daughter Ashley lives with -
[2021-08-28] MEDS: traMADol 50 MG TAB PO (17:30)
[2021-08-28] MEDS: cefTRIAXone 1 GM/50 ML BAG IVPB (22:48)
[2021-08-28] MEDS: oxyCODONE 5 MG TAB PO (22:48)
[2021-08-28] MEDS: Atorvastatin 10 MG TAB PO (22:49)
[2021-08-29 02:18] VITALS: PULSE 68
[2021-08-29 03:30] VITALS: BP 132/74; PULSE 84; RESP 20; TEMP 36.8; O2SAT 95
[2021-08-29] MEDS: traMADol 50 MG TAB PO (06:00)
[2021-08-29 07:01] VITALS: PULSE 76
[2021-08-29 08:04] LABS: Abs Immature Grans 0.02 10^3/uL (0.0-0.06); Absolute Basophil Count 0.03 10^3/uL (0.0-0.2); Absolute Eosinophil Count 0.11 10^3/uL (0.0-0.7); Absolute Lymphocyte Count 2.57 10^3/uL (1.2-3.4); Absolute Monocyte Count 0.55 10^3/uL (0.1-0.8); Absolute Neutrophil Count 3.54 10^3/uL (1.2-6.7); Basophils % 0.4; Eosinophils % 1.6; HCT 34.1 % (36.0-46.0); HGB 10.7 g/dL (11.2-15.7); Immature Grans % 0.3; Lymphocytes % 37.7; MCH 30.6 pg (27.0-33.0); MCHC 31.4 % (32.0-36.0); MCV 97.4 fL (80-95); MPV 8.7 fL (8.0-11.0); Monocytes % 8.1; Neutrophils % 51.9; Nucleated RBC 0 %; Platelet Count 321 10^3/uL (130-400); RDW 13.9 % (11.7-14.6); RDW-SD 50.1 fL; WBC 6.82 10^3/uL (4.4-10.8)
[2021-08-29 08:11] LABS: ALT 15 U/L (14-59); AST 27 U/L (15-37); Albumin 2.4 g/dL (3.4-5.0); Alkaline Phosphatase 64 U/L (46-116); Anion Gap 8.9 mmol/L (3-11); BUN 21 mg/dL (7-18); Bilirubin, Total 0.1 mg/dL (0.2-1.0); CO2 23.1 mmol/L (21.0-32.0); CREATININE 0.9 mg/dL (0.55-1.02); Calcium 7.9 mg/dL (8.5-10.1); Chloride 105 mmol/L (98-107); Glucose 86 mg/dL (74-106); Potassium 3.8 mmol/L (3.5-5.1); Sodium 137 mmol/L (136-145); Total Protein 5.5 g/dL (6.4-8.2)
[2021-08-29 08:36] VITALS: BP 133/82; PULSE 78; RESP 19; TEMP 37; O2SAT 97
[2021-08-29] MEDS: Enoxaparin 30 MG/0.3 ML SYR SC (08:39)
[2021-08-29] MEDS: Normal Saline Flush 10 ML SYR IVP (08:39)
[2021-08-29] MEDS: Benzonatate 100 MG CAP PO (08:39)
[2021-08-29] MEDS: hydroCHLOROthiazide 12.5 MG TAB PO (08:40)
[2021-08-29] MEDS: Losartan 50 MG TAB PO (08:40)
[2021-08-29] MEDS: Aspirin E.C. 81 MG TABEC PO (08:40)
[2021-08-29] MEDS: Cyanocobalamin 500 MCG TAB 1000 MCG PO (08:40)
[2021-08-29] MEDS: Fluticasone NASAL SPRAY 16 GM BTL NS (08:41)
--- NOTE | 2021-08-29 09:31 | DSE_ITS ---
Date of service: 08/29/21 Time of Service: 09:31 DS: Diagnosis Discharge Diagnosis (1) Acute UTI: Status: Acute (2) Pneumonia: Status: Acute (3) Pulmonary fibrosis: Status: Chronic (4) Renal stones: Status: Chronic Discharge Plan Disposition Patient Disposition: HOME Condition: Good Discharge Details Reason For Visit: UTI,Renal Stone,Right Lower Lobe Pneumonia,COVID + Admit Date/Time: 08/28/21 13:00 Admit Provider: Rober Cho Attending Provider: Rober Cho Primary Care Provider: Rober Cho Hospital Course Hospital Course: This 70-year-old female with history of pulmonary fibrosis, CVA, bronchitis, essential tremor presents with report of weakness, abdominal pain, dysuria. Patient states she was recently treated for urinary tract infection and had similar symptoms. She completed the course of antibiotic and was doing well until earlier this week when symptoms returned. She originally presented to [facility] but sent here for admission as they had no beds. Of note she was found to have a positive covid test during a medical clearance for cataract surgery and at that time was advised to to go the ED for immediate evaluation but did not have transportation so did not. She denied any respiratory symptoms and was just having urinary symptoms at the time. Her work up included a CT which showed a non obstruction stone which was noted on imaging as far back as 2014. There was also question of infiltrate on cxr but no oxygen requirements or respiratory symptoms. she was started on ceftriaxone and doxycycline and transferred here for observation admission. Her urine grew pansensitive e coli, she received 4 doses of ceftriaxone and will complete course with keflex. her urinary symptoms have resolved. her respiratory status remained stable with no oxygen requirements. she completed 3 days of remdesivir. on day of anticipated discharged, she developed abdominal cramping and diarrhea. her stool was negative for cdiff. her symptoms resolved with imodium and she is tolerating good PO and feeling well for discharge now. hemodynamically has been stable. discharge discussed with Dr Roper Home Meds and New Rx's Prescriptions: New L. Acidophilus,Casei,Rhamnosus [Bio-K Plus] 1 cap PO DAILY Qty: 10 RF: 0 cephalexin 500 mg capsule 500 mg PO BID Qty: 5 RF: 0 Continued atorvastatin 10 mg tablet 10 mg PO QHS Qty: 90 RF: 3 mycophenolate mofetil 500 mg Tablet 1,000 mg PO BID RF: 0 nintedanib 100 mg Capsule 150 mg PO BID RF: 0 tramadol 50 mg tablet 50 mg PO 6XD PRNRF: 0 benzonatate 100 mg capsule 100 mg PO TID RF: 0 albuterol sulfate 90 mcg/actuation HFA aerosol inhaler 2 puff inhalation Q4H PRN PRNRF: 0 oxycodone 5 mg tablet 5 mg PO HS RF: 0 megestrol 625 mg/5 mL (125 mg/mL) suspension 5 ml PO DAILY RF: 0 fluticasone propionate 50 mcg/actuation spray,suspension 2 spray INTRANASAL DAILY RF: 0 aspirin 81 mg Tablet,Delayed Release (Dr/Ec) 81 mg PO DAILY Qty: 30 RF: 0 losartan-hydrochlorothiazide 50-12.5 mg tablet 1 tab PO DAILY RF: 0 ipratropium-albuterol 0.5 mg-3 mg(2.5 mg base)/3 mL Solution For Nebulization 3 ml UPD Q4H PRN PRN (Reason: shortness of breath) Qty: 180 RF: 0 cyanocobalamin (vitamin B-12) [Vitamin B-12] 1,000 mcg Tablet 1,000 mcg PO DAILY RF: 0 Discharge Instructions Instructions: Urinary Tract Infection in Women (DC), COVID-19 (Coronavirus Disease 2019) (DC) Additional Instructions: continue antibiotic twice daily for 2 more days to finish your course. Start tonight. you were treated with remdesivir, an antiviral for your Covid infection. continue to monitor your oxygen levels at home and report levels less than 90%. Referrals: Rober Cho [Primary Care Provider] - Activity:: Activity as Tolerated Equipment/Supplies:: No Equipment Needed Diet:: As Tolerated Discharge Orders Discharge Orders: Discharge Order (Routine); Ordered 08/29/21 Ordered By: Gale Feliciano DS: Summary Time Spent with Patient providing and/or coordinating discharge services: Less than 30 minutes Status at Discharge Functional status at discharge: independent ambulation Overall status at discharge: patient is back to baseline Mental Status: mental status grossly normal Speech and Movement: speech and movement normal Mood: congruent mood Affect: normal affect Exam Const General: cooperative and comfortable Eyes Pupils: PERRL Resp Effort & Inspection: not able to speak in complete sentences and no audible wheezes Auscultation: diminished lung sounds Cardio Rate: regular rate Rhythm: regular rhythm GI Inspection: normal to inspection Auscultation: normal bowel sounds Skin General skin exam: no rashes or lesions noted Neuro General: patient alert and patient oriented x3 Psych Mental Status: mental status grossly normal Speech and Movement: speech and movement normal Mood: congruent mood Affect: normal affect DS: Data Vitals/I&O Vitals and I&O: Vital Signs Temperature 37 C 08/29/21 08:36 Temperature Source Tympanic 08/29/21 08:36 Pulse 78 08/29/21 08:36 Pulse Rhythm Regular 08/29/21 05:39 Pulse 90 08/25/21 23:30 Respiratory Rate 19 08/29/21 08:36 Respiratory Effort Non-Labored 08/29/21 05:39 Respiratory Depth Normal 08/29/21 05:39 Respiratory Pattern Normal 08/29/21 05:39 Blood Pressure 133/82 08/29/21 08:36 Blood Pressure Mean 79 08/25/21 23:01 Pulse Oximetry 97 08/29/21 08:36 Oxygen Delivery Method Room Air 08/29/21 08:36 Oxygen Flow Rate 0 08/29/21 08:36 Pain Level 0 08/29/21 03:30 Comment 08/28/21 07:35 Intake & Output 08/28/21 08/28/21 08/29/21 11:59 23:59 11:59 Intake Total 460 / 460 Output Total 900 / 900 200 / 200 Balance -440 / -440 -200 / -200 Intake: IV 110 / 110 Oral 350 / 350 Output: Urine 900 / 900 200 / 200 Other: Urine Color Yellow Yellow Yellow Urine Appearance Clear Clear Clear Urine Odor None None Comment mixed with stool Stool Size Large Moderate Stool Characteristics Soft Liquid Liquid Foamy Brown Voiding Methods Bedside Commode Bedside Commode Bedside Commode Data Completed and Pending Labs on day of discharge: Labs from last 24 hours 08/29/21 08/29/21 08/28/21 07:30 07:30 13:56 WBC 6.82 RBC 3.50 L Hgb 10.7 L Hct 34.1 L MCV 97.4 H MCH 30.6 MCHC 31.4 L RDW 13.9 Plt Count 321 MPV 8.7 Immature Gran % 0.3 Neutrophils % 51.9 Lymphocytes % 37.7 Monocytes % 8.1 Eosinophils % 1.6 Basophils % 0.4 Nucleated RBC % 0 Absolute Neutrophils 3.54 Absolute Lymphocytes 2.57 Absolute Monocytes 0.55 Absolute Eosinophils 0.11 Absolute Basophils 0.03 Sodium 137 Potassium 3.8 Chloride 105 Carbon Dioxide 23.1 Anion Gap 8.9 BUN 21 H D Creatinine 0.9 Estimated GFR/1.73 m2 >= 60.00 Glucose 86 Calcium 7.9 L Total Bilirubin 0.1 L AST 27 ALT 15 Alkaline Phosphatase 64 Total Protein 5.5 L Albumin 2.4 L Stl C.difficile Tox PCR Negative Preliminary micro results at discharge 08/25/21 20:35 Blood Culture - Preliminary Blood NO GROWTH 72 HOURS 08/25/21 19:25 Blood Culture - Preliminary Blood NO GROWTH 72 HOURS PFSH All Active Problems (Updated 08/28/21 @ 10:44 by Gale Feliciano NP) Discharge planning issues (Acute) Pneumonia (Acute) Renal stones (Chronic) Calcium ureterolithiasis (Acute) Hip pain (Acute) Fall (Acute) Chest wall pain (Acute) Hypokalemia (Acute) Stress at home (Acute) SOB (shortness of breath) (Acute) Acute UTI (Acute) Essential tremor (Acute) Pre-diabetes (Acute) Stroke (Chronic) Cellulitis of left wrist (Acute) Arthritis of left wrist (Acute) Fracture of middle phalanx of left ring finger (Acute) Pulmonary fibrosis (Chronic) Patient had previous work-up by Dr. Ferrara in [facility] in March 2018. Patient reports that her PFTs did not show underlying COPD, patient has a follow-up with Dr. Giron in February 16, 2019 Bronchitis (Acute) Medical History Chronic back pain Fibromyalgia Hypertension Osteoarthritis Surgical History Hx of ultrasound guided needle biopsy of lung S/P cholecystectomy S/P gastric bypass S/P hernia repair S/P hysterectomy Family History Mother Stroke Maternal Grandmother Stroke Maternal Uncle Stroke Social History Smoking/Tobacco Use Status: Never Second Hand Exposure: Yes (Secondary to her parents as well as ) Smoking risk assessment performed?: Yes Alcohol Intake: never Drug use: Never Substance use type: does not use Household members: family and children Housing: other Details: moble home Number of Children: 5 number of grandchildren: 8 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
--- NOTE | 2021-08-29 12:30 | PDOC.CMDIS ---
- If Service Date Differs Date of service: 08/29/21 Time of Service: 12:30 LACE Index Scoring Tool - Questions: Length of Stay (in days): 4 - 6 Acuity (Admit via E.D.?): Yes Comorbidities: Cerebrovascular Disease, Chronic Pulmonary Disease E.D. Visits: 9 - Answers: Total Score: 14 Risk of Readmission: High Risk Care Management Discharge Reason for Hospitalization: UTI, Renal Stone, RLL Pneumonia, Covid Discharge Plan: Discharge home via private vehicle with family. Continue to monitor O2 levels at home and take ABX and probiotics as prescribed. Follow up with PCP and discharge plan of care. No new services are needed at this time. Patient/Family Education Needs: Review discharge instructions, medications, limitations and plan to follow up with PCP. Ask me three.
== END 2021-08-29 11:16 | disposition home or self-care (01) | DRG 193 ==
LOC: ER 23:43 → MS 23:46
PROVIDERS: Internal Medicine; Nurse Practitioner Acute Care; Admitting Provider Family Medicine; Emergency Provider Physician Assistant; PCP Family Medicine; Visit Provider Family Medicine
DX: J18.9 Pneumonia, unspecified organism (principal); U07.1 COVID-19; N39.0 Urinary tract infection, site not specified; D84.821 Immunodeficiency due to drugs; B96.20 Unspecified Escherichia coli [E. coli] as the cause of diseases classified elsewhere; R73.03 Prediabetes; J84.10 Pulmonary fibrosis, unspecified; Z86.73 Personal history of transient ischemic attack (TIA), and cerebral infarction without residual deficits; Z98.84 Bariatric surgery status; Z99.81 Dependence on supplemental oxygen; G25.0 Essential tremor; M79.7 Fibromyalgia; M54.9 Dorsalgia, unspecified; I10 Essential (primary) hypertension; N20.0 Calculus of kidney; R19.7 Diarrhea, unspecified
CPT/HCPCS: 36415; 36416; 80048; 80053; 80076; 82962; 83690; 84145; 87040; 87077; 87493; 93005; 96361; 96365; 96367; 96375; 96376; 99213; 99285; 71045; 74177; 81003; 81015; 82728; 82947; 83605; 83735; 84100; 84484; 85025; 85379; 85610; 86140; 87086; 87186; 93010; 99220; 99226; 99232; 99238; G0378; J0131; J0248; J0696; J1650; J2405; J3010; J3490; J7517; J9999

== ENCOUNTER 2021-10-11 17:03 | Emergency (ER) | payer MEDICARE, MEDICAID, SELFPAY ==
[2021-10-11] VITALS (43 sets, daily range): BP systolic 118–152; BP diastolic 65–96; PULSE 74–98; RESP 20; TEMP 36.7; O2SAT 96–100
[2021-10-11 17:44] LABS: Abs Immature Grans 0.02 10^3/uL (0.0-0.06); Absolute Basophil Count 0.04 10^3/uL (0.0-0.2); Absolute Eosinophil Count 0.33 10^3/uL (0.0-0.7); Absolute Lymphocyte Count 2.42 10^3/uL (1.2-3.4); Absolute Monocyte Count 0.63 10^3/uL (0.1-0.8); Absolute Neutrophil Count 4.72 10^3/uL (1.2-6.7); Basophils % 0.5; HGB 11.2 g/dL (11.2-15.7); Immature Grans % 0.2; Lymphocytes % 29.7; MCH 31.1 pg (27.0-33.0); MCHC 30.3 % (32.0-36.0); MCV 102.8 fL (80-95); MPV 8.8 fL (8.0-11.0); Monocytes % 7.7; Neutrophils % 57.9; Nucleated RBC 0 %; Platelet Count 252 10^3/uL (130-400); RDW 14.7 % (11.7-14.6); RDW-SD 56.5 fL; WBC 8.16 10^3/uL (4.4-10.8)
--- NOTE | 2021-10-11 17:45 | DI.CT_ITS ---
Exam(s) CT ABDOMEN PELVIS WO EXAM: CT ABDOMEN PELVIS WO CLINICAL HISTORY: RLQ suprapubic abdominal pain. TECHNIQUE: Imaging Protocol: Axial computed tomography images with coronal and sagittal reformatted images were created and reviewed CONTRAST MATERIAL: Intravenous: none Oral: None COMPARISON: CT CT ABDOMEN PELVIS W from 08/25/2021 FINDINGS: VISUALIZED LUNG BASES: Pulmonary fibrosis again noted. No pleural effusions.. ABDOMEN: There are multiple surgical clips in the upper left abdomen region of the stomach. LIVER: There are no obvious focal hepatic lesions evident of this noninfused study. However, there i s significant dilatation of the biliary tree, both intra and extrahepatic with CBD measuring 1.5 cm. GALLBLADDER/BILIARY: Gallbladder surgically absent CBD is significantly dilated measuring 1.5 cm. PANCREAS: No evidence of pancreatic mass nor dilatation of the pancreatic duct. SPLEEN: Spleen is not enlarged. No obvious intrasplenic lesions. ADRENALS: There are no significant adrenal masses. KIDNEYS:There is a nonobstructive 4-5 millimeter calculus in the lower pole of the left kidney. No o ther significant focal renal findings. No hydronephrosis. No hydroureter. No obvious abnormality i n the nondistended urinary bladder.. ABDOMINAL AORTA: Abdominal aorta is not enlarged. LYMPH NODES: There is no retroperitoneal nor paraaortic adenopathy. ABDOMINAL WALL: No evidence of significant anterior abdominal wall nor inguinal hernia. GI: There is no evidence of bowel obstruction, free air, nor abscess. However, the nondilated small bowel loops are fluid-filled suggesting enteritis. PELVIS: LYMPH NODES: There is no intrapelvic nor inguinal adenopathy. GI: No evidence of appendicitis.No evidence of sigmoid diverticulitis. URINARY BLADDER: No calculi nor obvious masses evident REPRODUCTIVE: Uterus is surgically absent. No abnormal adnexal masses. OSSEOUS: No significant osseous lesions. IMPRESSION: 1. Fluid-filled nondilated small bowel loops, probably an element of enteritis. There is no evidence of bowel obstruction. 2. Cholecystectomy with significant biliary dilatation, both intra and extrahepatic. CBD diameter is 1.5 cm. Correlation with blood work and clinical findings recommended. The amount of dilatation of the biliary tree is significantly more than expected in a post cholecystectomy 70-year-old patient. 3. There is a nonobstructive solitary 4-5 millimeter calculus in the lower pole the left kidney. Pulmonary fibrosis noted. RADIATION DOSE DELIVERED: 484.28mGy.cm Total DLP DATA REPOSITORY: All CT scans at this facility are submitted to the National Radiology Data Registry (NRDR) Dose Index Registry (DIR) with the [employer] (ACR). RADIATION OPTIMIZATION: All CT scans at this facility use at least one of these dose optimization te chniques: automated exposure control; mA and/or kV adjustment per patient size (includes targeted exa ms where dose is matched to clinical indication); or iterative reconstruction.
[2021-10-11] MEDS: Normal Saline 500 ML IV (18:15)
--- NOTE | 2021-10-11 18:20 | NUR.NOTE ---
Nursing Note: Vaginal exam done by provider, pt tolerated well, cont. to monitor.
[2021-10-11] MEDS: Normal Saline Flush 10 ML SYR IVP ×2 (18:21→21:11)
[2021-10-11 18:23] LABS: Bilirubin Negative (Negative); Blood Large (Negative); Clarity Clear (Clear); Glucose Negative (Negative); Ketones Trace mg/dL (Negative); Leukocyte Esterase Negative (Negative); Nitrite Positive (Negative); Specific Gravity >= 1.030 (1.005-1.025); Urobilinogen 0.2 EU/dL (Up TO 0.2); pH 5.5 (5-8)
[2021-10-11] MEDS: HYDROmorphone 2 MG/ML VIAL 0.5 MG IVP ×2 (18:28→19:04)
[2021-10-11 18:45] LABS: ALT 20 U/L (14-59); AST 26 U/L (15-37); Albumin 3.7 g/dL (3.4-5.0); Alkaline Phosphatase 73 U/L (46-116); Anion Gap 8.9 mmol/L (3-11); BUN 23 mg/dL (7-18); Bilirubin, Total 0.3 mg/dL (0.2-1.0); CO2 26.1 mmol/L (21.0-32.0); CREATININE 1.1 mg/dL (0.55-1.02); Calcium 9.2 mg/dL (8.5-10.1); Chloride 105 mmol/L (98-107); Estimated GFR 48.96 (mL/min/1.73m2); Glucose 96 mg/dL (74-106); Potassium 3.9 mmol/L (3.5-5.1); Sodium 140 mmol/L (136-145); Total Protein 7.7 g/dL (6.4-8.2)
[2021-10-11 18:47] LABS: Bacteria Many HPF (Negative); C & S Indicated? Yes; Casts Negative LPF (Negative); Crystals Negative HPF (Negative); Epithelial Cells Few HPF (Negative); Mucus Negative (Negative); Other Cells Negative (Negative); RBC Negative HPF (0-2); WBC 20-50 HPF (0-5)
--- NOTE | 2021-10-11 19:23 | NUR.NOTE ---
Nursing Note: Pt reports more relief after 2nd dose of dilaudid, resting on stretcher. Pt also c/o sore bottom coccyx area pink & blanchable, encouraged side to side to relieve pressure, area cleansed and dressing applied for protection, provider aware.
[2021-10-11] MEDS: cefTRIAXone 1 GM/50 ML BAG IVPB (20:03)
--- NOTE | 2021-10-11 20:10 | DI.VRAD_ITS ---
PROCEDURE INFORMATION: Exam: CT Abdomen And Pelvis Without Contrast Exam date and time: 10/11/2021 5:47 PM Age: 71 years old Clinical indication: Other: Rlq and suprapubi pain TECHNIQUE: Imaging protocol: Computed tomography of the abdomen and pelvis without contrast. Radiation optimization: All CT scans at this facility use at least one of these dose optimization techniques: automated exposure control; mA and/or kV adjustment per patient size (includes targeted exams where dose is matched to clinical indication); or iterative reconstruction. COMPARISON: CT ABDOMEN PELVIS W 08/25/2021 8:51 PM FINDINGS: Lungs: Peripheral reticular markings, subpleural cystic changes, bronchiectasis and ground-glass opacities are seen within the lung bases, unchanged from the prior study, most consistent with chronic pulmonary fibrosis. Pleural spaces: No pleural effusion. Heart: The heart is normal in size. No pericardial effusion. Liver: The liver is normal in size, with slight atrophy of the left hepatic lobe. Gallbladder and bile ducts: The gallbladder is surgically absent. Moderate intrahepatic ductal dilatation with dilatation of the common bile duct measuring up to 17 mm and dilatation of the cystic duct remnant measuring up to 10 mm. This tapers at the level of the pancreatic head. Pancreas: The pancreas is atrophic. No pancreatic ductal dilatation. Spleen: Normal. No splenomegaly. Adrenal glands: The bilateral adrenal glands are normal appearance. Kidneys and ureters: A 4 mm nonobstructing stone is seen within the inferior left renal pelvis. The bilateral kidneys are otherwise normal appearance. No intraureteral calculi. No hydroureteronephrosis. Stomach and bowel: Multiple surgical clips are seen within the upper abdomen along the gastroesophageal junction, which may represent sequela prior partial gastrectomy or gastric bypass surgery. This is similar when compared to the prior study. The small bowel and colon are fluid filled, slightly prominent, and demonstrate areas of wall thickening. No bowel obstruction or perforation. No pneumatosis. Appendix: No evidence of appendicitis. Intraperitoneal space: No free fluid, free air or abscess. Vasculature: The abdominal aorta is normal in caliber without aneurysm. Lymph nodes: No pathologically enlarged lymph nodes within the abdomen and pelvis. Urinary bladder: The urinary bladder is normal appearance. Reproductive: The uterus is surgically absent. No adnexal mass. Bones/joints: The osseous structures are demineralized. A levoconvex curvature of the lumbar spine is seen, centered at L2-L3. No evidence for acute compression fracture. Calcifications are seen within the pubic symphysis, consistent with CPPD. Soft tissues: Unremarkable. IMPRESSION: 1. The small bowel and colon is fluid-filled, with a few loops of bowel demonstrating possible mild wall thickening. This suggests an infectious, inflammatory or possibly ischemic enterocolitis. No bowel obstruction or perforation. No free air or abscess. 2. Cholecystectomy with biliary dilatation, unchanged. If clinical interest dictates, MRI/MRCP study can be performed. 3. 4 mm nonobstructing left renal stone. 4. Lung findings suggestive of pulmonary fibrosis, unchanged. Dictated and Authenticated by: Sravani Schultz MD. Ordering:EDMUND Bruce MD
--- NOTE | 2021-10-11 20:30 | DI.CT_ITS ---
Exam(s) CT ABDOMEN PELVIS CTA EXAM: CT ABDOMEN PELVIS CTA CLINICAL HISTORY: abd pain. TECHNIQUE: Imaging Protocol: Axial computed tomography images with coronal and sagittal reformatted images were created and reviewed CONTRAST MATERIAL: Intravenous: Omnipaque 350 Contrast volume:100 ml Oral: None COMPARISON: CT CT ABDOMEN PELVIS WO from 10/11/2021 FINDINGS: Visualized lung bases reveal COPD findings and interstitial fibrosis. No pleural effusions. AORTA: Caliber of the abdominal aorta is normal. No evidence of aneurysm, dissection, nor significan t atherosclerotic disease. Aortic bifurcation unremarkable as are the common and external iliac deonna paulino and internal iliac arteries and common femoral arteries. There is no significant atheroscleroti c disease in the aortoiliac segments. No stenosis. No aneurysms. The celiac and superior mesenteri c arteries are patent as is the inferior mesenteric artery. No significant stenosis evident in the r enal arteries.There is no evidence of aortic dissection. ABDOMEN Multiple surgical clips are seen left upper quadrant. LIVER: No obvious focal hepatic lesions. However, there are dilated intrahepatic ducts in both hepat ic lobes. CBD is also significantly dilated up to 2 cm without evidence obvious calculus mass.. GALLBLADDER/BILIARY: Gallbladder surgically absent CBD is significantly dilated. Measures up to 2 cm diameter PANCREAS: No evidence of obvious pancreatic mass nor dilatation of the pancreatic duct. SPLEEN: Spleen is not enlarged. There are no intrasplenic lesions. ADRENALS: There are no significant adrenal masses. KIDNEYS: No cysts evident. No solid lesions. There is, however, nonobstructive 4 millimeter calculus in left kidney. No obvious calculi in the right kidney. Both kidneys exhibit normal size.. ABDOMINAL AORTA: As above. LYMPH NODES: There is no retroperitoneal nor para-aortic adenopathy. No obvious mesenteric masses. ABDOMINAL WALL: No evidence of significant anterior abdominal wall hernia. No inguinal hernia. GI: There is no evidence of bowel obstruction, free air, nor abscess.There is fluid in small and larg e bowel loops. PELVIS: LYMPH NODES: There is no intrapelvic nor inguinal adenopathy. GI: No evidence of obvious appendicitis.No evidence of sigmoid diverticulitis. URINARY BLADDER: No calculi nor masses evident REPRODUCTIVE: Uterus is surgically absent. No abnormal adnexal masses. OSSEOUS: No significant osseous lesions. IMPRESSION: 1. Abdominal aorta, aortic bifurcation, and iliac arteries as well as femoral arteries are unremarkab le. No significant atherosclerotic narrowing nor aneurysms evident. Also no significant findings in the main branches of the abdominal aorta. 2. There is evidence of previous cholecystectomy. However, the biliary tree is dilated with this CBD up to 2 cm diameter and dilated intrahepatic ducts. This is more dilated than expected in a post ch olecystectomy patient. Correlation with clinical findings of blood work recommended to determine if MRCP or ERCP required. 3. There is a solitary 4 millimeter nonobstructive calculus within the left kidney. 4. Pulmonary fibrosis noted. RADIATION DOSE DELIVERED: 955.87mGy.cm Total DLP DATA REPOSITORY: All CT scans at this facility are submitted to the National Radiology Data Registry (NRDR) Dose Index Registry (DIR) with the [employer] (ACR). RADIATION OPTIMIZATION: All CT scans at this facility use at least one of these dose optimization te chniques: automated exposure control; mA and/or kV adjustment per patient size (includes targeted exa ms where dose is matched to clinical indication); or iterative reconstruction.
--- NOTE | 2021-10-11 20:40 | W.ED.GENAD ---
Discharge Plan Disposition Patient Disposition: HOME Condition: Stable Discharge Details Clinical Impression: Acute hemorrhagic cystitis Primary Care Provider: Rober Cho ED Provider: Teo Queen Home Meds and New Rx's Prescriptions: New cephalexin 500 mg tablet 500 mg PO QID 7 Days Qty: 28 0RF Continued atorvastatin 10 mg tablet 10 mg PO QHS Qty: 90 3RF mycophenolate mofetil 500 mg Tablet 1,000 mg PO BID 0RF nintedanib 100 mg Capsule 150 mg PO BID 0RF tramadol 50 mg tablet 50 mg PO 6XD [id number] Label Comments: TAKE 1 TABLET ORALLY 6 TIMES A DAY NEEDED FOR 28 DAYS benzonatate 100 mg capsule 100 mg PO TID 0RF Label Comments: TAKE ONE CAPSULE BY MOUTH THREE TIMES A DAY albuterol sulfate 90 mcg/actuation HFA aerosol inhaler 2 puff inhalation Q4H PRN PRN0RF Label Comments: INHALE TWO PUFFS BY MOUTH EVERY 4 HOURS oxycodone 5 mg tablet 5 mg PO HS 0RF Label Comments: TAKE ONE TABLET BY MOUTH AT BEDTIME megestrol 625 mg/5 mL (125 mg/mL) suspension 5 ml PO DAILY 0RF Label Comments: TAKE 5ML ORALLY EVERY 24 HOURS fluticasone propionate 50 mcg/actuation spray,suspension 2 spray INTRANASAL DAILY 0RF Label Comments: INSTILL 2 SPRAYS INTO EACH NOSTRIL ONCE DAILY DIRECTED aspirin 81 mg Tablet,Delayed Release (Dr/Ec) 81 mg PO DAILY Qty: 30 0RF losartan-hydrochlorothiazide 50-12.5 mg tablet 1 tab PO DAILY 0RF Label Comments: TAKE ONE TABLET BY MOUTH EVERY DAY L. Acidophilus,Casei,Rhamnosus [Bio-K Plus] 1 cap PO DAILY Qty: 10 0RF ipratropium-albuterol 0.5 mg-3 mg(2.5 mg base)/3 mL Solution For Nebulization 3 ml UPD Q4H PRN PRN (Reason: shortness of breath) Qty: 180 0RF cyanocobalamin (vitamin B-12) [Vitamin B-12] 1,000 mcg Tablet 1,000 mcg PO DAILY 0RF Discharge Instructions Instructions: Urinary Tract Infection in Women (ED) Additional Instructions: Please take antibiotics as prescribed and stay well-hydrated. Return immediately for any new or worsening symptoms, nausea/vomiting, fever chills, or worsening of your condition. Otherwise follow-up with your primary care provider for reassessment next week and to review urine culture results as needed. Referrals: Rober Cho [Primary Care Provider] - 5 days Medical Decision Making Patient presenting to the emergency department for chief complaint of bloody urination. Patient reports multiple UTIs recently and is concerned for possible . Patient does state significant abdominal pain which is new. She does state ongoing history of diarrhea that she has had for years secondary to her medication she takes for pulmonary fibrosis. Patient denies fever chills, nausea vomiting, rash sores lesions, or vaginal bleeding. Physical exam does show significantly uncomfortable patient but is holding and rubbing abdomen. States more suprapubic pain. Physical exam shows diffuse abdominal guarding with most elicited pain noted in the right lower quadrant and suprapubic area. Patient has no CVA tenderness, afebrile, history of hysterectomy and vaginal exam was performed with RN membership sales manager in room and shows no sores lesions or bleeding in the vaginal vault. Patient does have mild erythema surrounding the genitals and rectum consistent with mild dermatitis secondary to loose stools. Plan to check labs including CT abdomen pelvis without contrast for concern of stone versus possible mass as patient does state recent weight loss. Pending results we will give patient IV fluids and pain medication. Review of labs shows an unremarkable CBC with slight findings of anemia that is at patient's baseline. Otherwise no signs of infection or shift. CMP shows slight elevation of BNP and creatinine with GFR 48 otherwise again unremarkable labs. UA does show findings of concentration, protein, ketones, blood and nitrates with significant WBCs seen on microscopy. Bacteria is also noted. Given this I do feel highly suspicious of hemorrhagic cystitis. Will give patient IV Rocephin pending CT imaging results. Review of CT imaging and radiologist interpretation shows IMPRESSION: 1. The small bowel and colon is fluid-filled, with a few loops of bowel demonstrating possible mild wall thickening. This suggests an infectious, inflammatory or possibly ischemic enterocolitis. No bowel obstruction or perforation. No free air or abscess. 2. Cholecystectomy with biliary dilatation, unchanged. If clinical interest dictates, MRI/MRCP study can be performed. 3. 4 mm nonobstructing left renal stone. 4. Lung findings suggestive of pulmonary fibrosis, unchanged. Given these findings especially concerning for ischemic bowel findings discussed with patient repeat imaging with IV contrast given significant amount of abdominal pain on reassessment. Patient is agreeable to this. We will also plan on checking lactate. I do feel that there is a high likelihood that these findings are more inflammatory or irritative secondary to patient chronic diarrhea secondary to her pulmonary fibrosis medications. Lactate is within normal range and radiologist impression of CT scan with contrast shows IMPRESSION: 1. No stenosis, occlusion, or aneurysm within the abdominal aorta, mesenteric arteries, renal arteries and iliac arteries. The SMV, splenic vein and portal veins opacify normally without evidence for clot. 2. The small bowel and colon is fluid-filled, with a few loops of bowel demonstrating possible mild wall thickening. This suggests an infectious or inflammatory enterocolitis. No bowel obstruction or perforation. No free air or abscess. 3. Cholecystectomy with biliary dilatation, unchanged. If clinical interest dictates, MRI/MRCP study can be performed. 4. 4 mm nonobstructing left renal stone. 5. Probable pulmonary fibrosis, unchanged. Given her ischemic findings and chronic diarrhea secondary to medication I feel that this is what is causing the abnormality. This was discussed with patient along with return follow-up precautions otherwise we will trial outpatient antibiotics with patient understanding return and follow-up precautions or for any worsening to return immediately to the emergency department. HPI General Mode of arrival: wheelchair. Date/Time Provider Initiated Documentation: 10/11/21 17:04. Limitations to Documentation: no limitations. Information obtained by: patient. History of Present Illness 71 year old F presents to the emergency department with the chief complaint of Bleeding with urination, described as moderate, with intensity rated at 8. Quality is described as aching, and is localized to the abdomen. Patient reports no radiation. Patient started experiencing this day(s) (1) and it has been constant. improves with No relieving factors improve symptom(s), No exacerbating factors reported . Patient notes denies chest pain, fever/chills, loss of appetite, malaise and nausea/vomiting. Patient did receive the following treatments prior to arrival, none Related Data Home Medications Medication Instructions Recorded Confirmed ipratropium 0.5 mg-albuterol 3 mg 3 ml UPD Q4H PRN PRN #180 ml 12/25/18 10/11/21 (2.5 mg base)/3 mL nebulization soln mycophenolate mofetil 500 mg tablet 1,000 mg PO BID 12/14/19 08/25/21 nintedanib 100 mg capsule 150 mg PO BID 12/14/19 10/11/21 albuterol sulfate 90 mcg/actuation 2 puff INHALATION Q4H PRN PRN 11/24/20 10/11/21 aerosol inhaler aspirin 81 mg tablet,delayed 81 mg PO DAILY #30 tab 11/24/20 10/11/21 release benzonatate 100 mg capsule 100 mg PO TID 11/24/20 10/11/21 fluticasone propionate 50 2 spray INTRANASAL DAILY 11/24/20 10/11/21 mcg/actuation nasal spray,suspension megestrol 625 mg/5 mL (125 mg/mL) 5 ml PO DAILY 11/24/20 10/11/21 oral suspension oxycodone 5 mg tablet 5 mg PO HS 11/24/20 10/11/21 tramadol 50 mg tablet 50 mg PO 6XD PRN 11/24/20 10/11/21 cyanocobalamin (vitamin B-12) 1,000 mcg PO DAILY 01/11/21 10/11/21 1,000 mcg tablet (Vitamin B-12) atorvastatin 10 mg tablet 10 mg PO QHS #90 tab 01/31/21 10/11/21 losartan 50 mg-hydrochlorothiazide 1 tab PO DAILY 03/01/21 10/11/21 12.5 mg tablet L. Acidophilus,Casei,Rhamnosus 1 cap PO DAILY #10 cap 08/29/21 [Bio-K PLUS] cephalexin 500 mg tablet 500 mg PO QID 7 Days #28 tab 10/11/21 Previous Rx's Medication Instructions Recorded ipratropium 0.5 mg-albuterol 3 mg 3 ml UPD Q4H PRN PRN #180 ml 12/25/18 (2.5 mg base)/3 mL nebulization soln aspirin 81 mg tablet,delayed 81 mg PO DAILY #30 tab 11/24/20 release atorvastatin 10 mg tablet 10 mg PO QHS #90 tab 01/31/21 L. 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: 3 Review of Systems Constitutional Constitutional: Denies body ache(s), Denies chills, Denies fever(s), Reports malaise and Denies weakness Cardiovascular Cardiovascular: Denies chest pain Respiratory Respiratory: Reports system reviewed and no additional complaints, except as documented Gastrointestinal Gastrointestinal: Reports abdominal pain, Reports diarrhea, Denies nausea and Denies vomiting Genitourinary Genitourinary: Reports as per HPI, Reports hematuria, Denies dysuria and Reports urinary urgency Neurologic Neurologic: Denies confusion and Denies weakness Psychiatric Psychiatric: Denies confusion PFSH All Active Problems Acute hemorrhagic cystitis (Acute) Calcium ureterolithiasis (Acute) Hip pain (Acute) Fall (Acute) Chest wall pain (Acute) Hypokalemia (Acute) Stress at home (Acute) SOB (shortness of breath) (Acute) Essential tremor (Acute) Pre-diabetes (Acute) Stroke (Chronic) Cellulitis of left wrist (Acute) Arthritis of left wrist (Acute) Fracture of middle phalanx of left ring finger (Acute) Bronchitis (Acute) Medical History Acute UTI Chronic back pain Fibromyalgia Hypertension Osteoarthritis Pneumonia Pulmonary fibrosis Patient had previous work-up by Dr. Ferrara in [facility] in March 2018. Patient reports that her PFTs did not show underlying COPD, patient has a follow-up with Dr. Giron in February 16, 2019 Renal stones Surgical History Hx of ultrasound guided needle biopsy of lung S/P cholecystectomy S/P gastric bypass S/P hernia repair S/P hysterectomy Family History Mother Stroke Maternal Grandmother Stroke Maternal Uncle Stroke Social History Smoking/Tobacco Use Status: Never Second Hand Exposure: Yes (Secondary to her parents as well as ) Smoking risk assessment performed?: Yes Alcohol Intake: never Drug use: Never Substance use type: does not use Household members: family and children Housing: other Details: moble home Number of Children: 5 number of grandchildren: 8 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 Pets and animals: Yes Pets and animals: dog(s) Current gender identity: female What is your relationship status?: Panel score (0-1 are the most socially isolated patients): 0 What type of physical activity do you participate in: walking Frequency: daily Seatbelt use: always Do you feel safe at home: Yes Do you feel safe in your relationship?: Yes History History 4 Para Hx # Term Pregnancies 4 Multiple births Hx # Pregnancies Ectopic pregnancies AB induced Hx Number of Living Children AB spontaneous Exam Const General: cooperative and no acute distress Orientation: alert, awake and oriented x3 Resp Effort & Inspection: normal respiratory effort and able to speak in complete sentences Auscultation: clear to auscultation bilaterally Cardio Rate: regular rate Rhythm: regular rhythm Heart Sounds: S1 normal and S2 normal GI Inspection: normal to inspection Palpation: not firm, guarding (Throughout) and tender in the RLQ and suprapubicly Auscultation: normal bowel sounds Back/Spine/Pelvis Back: no CVA tenderness Neuro General: patient alert, patient awake and patient oriented x3 Extrem General: capillary refill normal Course Vital Signs Vital signs: Vital Signs Temperature 36.7 C 10/11/21 17:12 Pulse 98 H 10/11/21 17:12 Respiratory Rate 20 10/11/21 17:12 Blood Pressure 152/96 H 10/11/21 17:12 Pulse Oximetry 96 10/11/21 17:12 Temperature 36.7 C 10/11/21 17:12 Pulse 79 10/11/21 19:15 Respiratory Rate 20 10/11/21 17:12 Respiratory Effort 10/11/21 17:18 Blood Pressure 149/76 H 10/11/21 19:15 Blood Pressure Mean 93 10/11/21 19:15 Blood Pressure Position Sitting 10/11/21 17:12 Pulse Oximetry 98 10/11/21 19:20 Oxygen Delivery Method Room Air 10/11/21 17:12 Oxygen Flow Rate 0 10/11/21 17:12 Pain Level 8 10/11/21 17:17 Lab/Test Results Lab/Test Results: 02/24/22 17:30 Urine - Reflex from Ua Urine Culture - Pending Laboratory Tests Range/Units 10/11/21 10/11/21 10/11/21 17:30 17:30 17:30 WBC (4.4-10.8) 10^3/uL 8.16 RBC (3.93-5.22) 10^6/uL 3.60 L Hgb (11.2-15.7) g/dL 11.2 Hct (36.0-46.0) % 37.0 MCV (80-95) fL 102.8 H MCH (27.0-33.0) pg 31.1 MCHC (32.0-36.0) % 30.3 L RDW (11.7-14.6) % 14.7 H Plt Count (130-400) 10^3/uL 252 MPV (8.0-11.0) fL 8.8 Immature Gran % 0.2 Neutrophils % 57.9 Lymphocytes % 29.7 Monocytes % 7.7 Eosinophils % 4.0 Basophils % 0.5 Nucleated RBC % % 0 Absolute Neutrophils (1.2-6.7) 10^3/uL 4.72 Absolute Lymphocytes (1.2-3.4) 10^3/uL 2.42 Absolute Monocytes (0.1-0.8) 10^3/uL 0.63 Absolute Eosinophils (0.0-0.7) 10^3/uL 0.33 Absolute Basophils (0.0-0.2) 10^3/uL 0.04 Sodium Cancelled Potassium Cancelled Chloride Cancelled Carbon Dioxide Cancelled Anion Gap Cancelled BUN Cancelled Creatinine Cancelled Estimated GFR/1.73 m2 Cancelled Glucose Cancelled Calcium Cancelled Magnesium Cancelled Total Bilirubin Cancelled AST Cancelled ALT Cancelled Alkaline Phosphatase Cancelled Total Protein Cancelled Albumin Cancelled Lipase Cancelled Urine Color (Yellow) Yellow Urine Clarity (Clear) Clear Urine pH (5-8) 5.5 Ur Specific [place] (1.005-1.025) >= 1.030 H Urine Protein (Negative) mg/dL >=300 H Urine Ketones (Negative) mg/dL Trace H Urine Blood (Negative) Large H Urine Nitrite (Negative) Positive H Urine Bilirubin (Negative) Negative Urine Urobilinogen (Up TO 0.2) EU/dL 0.2 Ur Leukocyte Esterase (Negative) Negative Urine RBC (0-2) HPF Negative Urine WBC (0-5) HPF 20-50 H Ur Epithelial Cells (Negative) HPF Few Urine Crystals (Negative) HPF Negative Urine Bacteria (Negative) HPF Many Urine Casts (Negative) LPF Negative Urine Mucus (Negative) Negative Urine Other (Negative) Negative Ur Culture Indicated? Yes Urine Glucose (Negative) mg/dL Negative Range/Units 10/11/21 17:54 WBC (4.4-10.8) 10^3/uL RBC (3.93-5.22) 10^6/uL Hgb (11.2-15.7) g/dL Hct (36.0-46.0) % MCV (80-95) fL MCH (27.0-33.0) pg MCHC (32.0-36.0) % RDW (11.7-14.6) % Plt Count (130-400) 10^3/uL MPV (8.0-11.0) fL Immature Gran % Neutrophils % Lymphocytes % Monocytes % Eosinophils % Basophils % Nucleated RBC % % Absolute Neutrophils (1.2-6.7) 10^3/uL Absolute Lymphocytes (1.2-3.4) 10^3/uL Absolute Monocytes (0.1-0.8) 10^3/uL Absolute Eosinophils (0.0-0.7) 10^3/uL Absolute Basophils (0.0-0.2) 10^3/uL Sodium 140 Potassium 3.9 Chloride 105 Carbon Dioxide 26.1 Anion Gap 8.9 BUN 23 H Creatinine 1.1 H Estimated GFR/1.73 m2 48.96 Glucose 96 Calcium 9.2 Magnesium Total Bilirubin 0.3 AST 26 ALT 20 Alkaline Phosphatase 73 Total Protein 7.7 Albumin 3.7 Lipase Urine Color (Yellow) Urine Clarity (Clear) Urine pH (5-8) Ur Specific [place] (1.005-1.025) Urine Protein (Negative) mg/dL Urine Ketones (Negative) mg/dL Urine Blood (Negative) Urine Nitrite (Negative) Urine Bilirubin (Negative) Urine Urobilinogen (Up TO 0.2) EU/dL Ur Leukocyte Esterase (Negative) Urine RBC (0-2) HPF Urine WBC (0-5) HPF Ur Epithelial Cells (Negative) HPF Urine Crystals (Negative) HPF Urine Bacteria (Negative) HPF Urine Casts (Negative) LPF Urine Mucus (Negative) Urine Other (Negative) Ur Culture Indicated? Urine Glucose (Negative) mg/dL
[2021-10-11 20:42] LABS: Lactate 0.9 mmol/L (0.6-1.4)
[2021-10-11] MEDS: Omnipaque 350 MG/ML 100 ML BTL IJ (21:08)
--- NOTE | 2021-10-11 21:23 | NUR.NOTE ---
Nursing Note: Pt return from second CT scan, reports pain still present but better and tolerable, cont. to monitor.
--- NOTE | 2021-10-11 21:42 | DI.VRAD_ITS ---
PROCEDURE INFORMATION: Exam: CTA Abdomen and Pelvis With Contrast Exam date and time: 10/11/2021 8:33 PM Age: 71 years old Clinical indication: Abdominal pain; Acute; Patient HX: Possible ischemic bowel seen on CT abd/pelvis w/o TECHNIQUE: Imaging protocol: Computed tomographic angiography of the abdomen and pelvis with contrast material. 3D rendering (Not supervised by radiologist): MIP and/or 3D reconstructed images were created by the technologist. Radiation optimization: All CT scans at this facility use at least one of these dose optimization techniques: automated exposure control; mA and/or kV adjustment per patient size (includes targeted exams where dose is matched to clinical indication); or iterative reconstruction. Contrast material: OMNIPAQUE 350; Contrast volume: 80 ml; Contrast route: INTRAVENOUS (IV); COMPARISON: CT ABDOMEN PELVIS WO 10/11/2021 7:36 PM FINDINGS: Lungs: Peripheral reticular markings, subpleural cystic changes, bronchiectasis and ground-glass opacities are seen within the lung bases, unchanged from the prior study, most consistent with chronic pulmonary fibrosis. Pleural spaces: No pleural effusion. Heart: The heart is normal in size. No pericardial effusion. Aorta: The abdominal aorta opacifies normally with contrast without aneurysm or dissection. Celiac trunk and mesenteric arteries: The celiac and superior mesenteric arteries as well as the inferior mesenteric arteries opacify normally with contrast without stenosis, or occlusion. Renal arteries: The bilateral renal arteries opacify normally with contrast without stenosis, occlusion or dissection. Right iliac arteries: The right common, internal and external iliac arteries opacify normally with contrast without stenosis, occlusion or dissection. Left iliac arteries: The left common, internal external iliac arteries opacify normally with contrast without stenosis, occlusion or dissection. Liver: The liver is normal in size, with slight atrophy of the left hepatic lobe. Gallbladder and bile ducts: The gallbladder is surgically absent. Moderate intrahepatic ductal dilatation with dilatation of the common bile duct measuring up to 17 mm and dilatation of the cystic duct remnant measuring up to 10 mm. This tapers at the level of the pancreatic head. Pancreas: The pancreas is atrophic. No pancreatic ductal dilatation. Spleen: Normal. No splenomegaly. Adrenal glands: The bilateral adrenal glands are normal appearance. Kidneys and ureters: A 4 mm nonobstructing stone is seen within the inferior left renal pelvis. The bilateral kidneys are otherwise normal appearance. No intraureteral calculi. No hydroureteronephrosis. Stomach and bowel: Multiple surgical clips are seen within the upper abdomen along the gastroesophageal junction, which may represent sequela prior partial gastrectomy or gastric bypass surgery. This is similar when compared to the prior study. The small bowel and colon are fluid filled, slightly prominent, and demonstrate areas of wall thickening. No bowel obstruction or perforation. No pneumatosis. Appendix: No evidence of appendicitis. Intraperitoneal space: No free fluid, free air or abscess. Lymph nodes: No pathologically enlarged lymph nodes within the abdomen and pelvis. Urinary bladder: The urinary bladder is normal appearance. Reproductive: The uterus is surgically absent. No adnexal mass. Bones/joints: The osseous structures are demineralized. A levoconvex curvature of the lumbar spine is seen, centered at L2-L3. No evidence for acute compression fracture. Calcifications are seen within the pubic symphysis, consistent with CPPD. Soft tissues: Unremarkable. Other findings: The SMV, splenic vein and portal veins opacify normally with contrast without clot. IMPRESSION: 1. No stenosis, occlusion, or aneurysm within the abdominal aorta, mesenteric arteries, renal arteries and iliac arteries. The SMV, splenic vein and portal veins opacify normally without evidence for clot. 2. The small bowel and colon is fluid-filled, with a few loops of bowel demonstrating possible mild wall thickening. This suggests an infectious or inflammatory enterocolitis. No bowel obstruction or perforation. No free air or abscess. 3. Cholecystectomy with biliary dilatation, unchanged. If clinical interest dictates, MRI/MRCP study can be performed. 4. 4 mm nonobstructing left renal stone. 5. Probable pulmonary fibrosis, unchanged. Dictated and Authenticated by: Sravani Schultz MD. Ordering:EDMUND Bruce MD
--- NOTE | 2021-10-12 15:23 | CMACTNOTE_ITS ---
- If Service Date Differs Date of service: 10/12/21 Time of Service: 15:23 Care Management Activity Note Ashley is seen in the ED for hemorrhagic cystitis. At the request of ED provider, CM contacts [facility] - Ashley Dang's PCP's office, to request they outreach directly to patient to schedule a follow up appointment.
== END 2021-10-11 22:05 | disposition home or self-care (01) ==
PROVIDERS: Emergency Provider Nurse Practitioner Family; PCP Family Medicine
DX: N30.01 Acute cystitis with hematuria (principal); B96.1 Klebsiella pneumoniae [K. pneumoniae] as the cause of diseases classified elsewhere; R10.31 Right lower quadrant pain; Z86.16 Personal history of COVID-19
CPT/HCPCS: 36415; 80053; 83690; 87077; 96361; 96365; 96375; 96376; 99285; 74174; 74176; 81003; 81015; 83605; 83735; 85025; 87086; 87186; 99284; J0696; J3490

== ENCOUNTER 2021-12-17 06:22 | Day surgery (SDC) | payer MEDICARE, MEDICAID, SELFPAY ==
[2021-12-17 06:37] VITALS: BP 174/96; PULSE 89; RESP 24; TEMP 36.1; O2SAT 98
--- NOTE | 2021-12-17 06:47 | HPE_ITS ---
Assessment and Plan Assessment and plan (1) Posterior subcapsular age-related cataract of left eye: Status: Chronic Assessment and plan: Assessment: Visually significant cataract. Plan cataract extraction with lens implantation. (2) Nuclear sclerotic cataract of left eye: Status: Chronic Assessment and plan: Assessment: Visually significant cataract. Plan cataract extraction with lens implantation (3) Nuclear sclerotic cataract of right eye: Status: Chronic Assessment and plan: Assessment: Visually significant cataract. Plan cataract extraction with lens implantation (4) Posterior subcapsular age-related cataract, right eye: Status: Chronic Assessment and plan: Assessment: Visually significant cataract. Plan cataract extraction with lens implantation History of Present Illness History of Present Illness Chief Complaint: Progressive decreased vision, both eyes Narrative: The patient is a 70-year-old lady who presented with complaints of progressive decreased vision in both eyes at both distance and near for the past several months. She notes significant difficulty with reading both with and without glasses and notes occasional tunnel vision in the right eye. Review of Systems All systems reviewed & are unremarkable except as noted in HPI and below Respiratory Comments: Shortness of breath and wheezing, on 1 L of oxygen. PFSH All Active Problems (Updated 12/17/21 @ 06:54 by Lloyd Olivier MD) Posterior subcapsular age-related cataract, right eye (Chronic) Nuclear sclerotic cataract of right eye (Chronic) Posterior subcapsular age-related cataract of left eye (Chronic) Nuclear sclerotic cataract of left eye (Chronic) Bronchitis (Acute) Fracture of middle phalanx of left ring finger (Acute) Cellulitis of left wrist (Acute) Arthritis of left wrist (Acute) Stroke (Chronic) Pre-diabetes (Acute) Essential tremor (Acute) Hip pain (Acute) Fall (Acute) Chest wall pain (Acute) Hypokalemia (Acute) Stress at home (Acute) SOB (shortness of breath) (Acute) Calcium ureterolithiasis (Acute) Medical History Acute UTI Chronic back pain Fibromyalgia Hypertension Osteoarthritis Pneumonia Pulmonary fibrosis Patient had previous work-up by Dr. Ferrara in [facility] in March 2018. Patient reports that her PFTs did not show underlying COPD, patient has a follow-up with Dr. Giron in February 16, 2019 F/U with with Dr. Woodard. Has supplemental O2 when needed (1L) Renal stones Stroke 11/24/21-pt. stated it was an acute stroke, f/u Dr. Anderson and stated she no longer needed to follow up with her, she takes a baby aspirin 81mg everyday for prevention Surgical History Hx of ultrasound guided needle biopsy of lung S/P cholecystectomy S/P gastric bypass S/P hernia repair S/P hysterectomy Family History Mother Stroke Maternal Grandmother Stroke Maternal Uncle Stroke Social History Smoking/Tobacco Use Status: Never Second Hand Exposure: Yes (Secondary to her parents as well as ) Smoking risk assessment performed?: Yes Alcohol Intake: never Drug use: Never Substance use type: does not use Household members: family and children Housing: [place] [facility] [place] Number of Children: 5 number of grandchildren: 8 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 [employer]STRU[employer] Pets and animals: Yes Pets and animals: dog(s) Current gender identity: female What is your relationship status?: Panel score (0-1 are the most socially isolated patients): 0 What type of physical activity do you participate in: walking Frequency: daily Seatbelt use: always Do you feel safe at home: Yes Do you feel safe in your relationship?: Yes History History 4 Para Hx # Term Pregnancies 4 Multiple births Hx # Pregnancies Ectopic pregnancies AB induced Hx Number of Living Children AB spontaneous Meds Allergies and Home Medications Allergies Allergy/AdvReac Type Severity Reaction Status Date / Time Sulfa (Sulfonamide Allergy Severe Anaphylaxis Unverified 12/17/21 06:49 Antibiotics) levofloxacin Allergy Intermediate Other (See Unverified 12/17/21 06:49 Comment) Home Medications Medication Instructions Recorded Confirmed Type ipratropium 0.5 mg-albuterol 3 mg 3 ml UPD Q4H PRN PRN #180 ml 12/25/18 12/17/21 Rx (2.5 mg base)/3 mL nebulization soln mycophenolate mofetil 500 mg tablet 1,000 mg PO BID 12/14/19 12/17/21 History nintedanib 100 mg capsule 150 mg PO BID 12/14/19 12/17/21 History albuterol sulfate 90 mcg/actuation 2 puff INHALATION Q4H PRN PRN 11/24/20 12/17/21 History aerosol inhaler aspirin 81 mg tablet,delayed 81 mg PO DAILY #30 tab 11/24/20 12/17/21 Rx release benzonatate 100 mg capsule 100 mg PO TID 11/24/20 12/17/21 History fluticasone propionate 50 2 spray INTRANASAL DAILY 11/24/20 12/17/21 History mcg/actuation nasal spray,suspension megestrol 625 mg/5 mL (125 mg/mL) 5 ml PO DAILY 11/24/20 12/17/21 History oral suspension oxycodone 5 mg tablet 5 mg PO HS 11/24/20 12/17/21 History tramadol 50 mg tablet 50 mg PO 6XD PRN 11/24/20 12/17/21 History cyanocobalamin (vitamin B-12) 1,000 mcg PO DAILY 01/11/21 12/17/21 History 1,000 mcg tablet (Vitamin B-12) atorvastatin 10 mg tablet 10 mg PO QHS #90 tab 01/31/21 12/17/21 Rx losartan 50 mg-hydrochlorothiazide 1 tab PO DAILY 03/01/21 12/17/21 History 12.5 mg tablet L. Acidophilus,Casei,Rhamnosus 1 cap PO DAILY #10 cap 08/29/21 12/17/21 Rx [Bio-K PLUS] Exam Eyes Other: Corrected visual acuity is 20/50 OD, 20/30 OS. Intraocular pressure is 11 OD, 9 OS. Extraocular Yumi is normal. Slit-lamp examination is significant for moderate bilateral nuclear and posterior subcapsular cataract with pupils dila ting to 6 mm. Disc cupping is 0.3 OD 0.2 OS with normal retinal vasculature. The macula and peripheral retina are normal. There are a few floaters in the vitreous cavity OU. Resp Auscultation: wheezes Cardio Rate: regular rate Rhythm: regular rhythm
[2021-12-17] MEDS: Tropicam./Phenyleph. (1/2.5%) 5 ML BTL ×3 (07:02→07:22)
--- NOTE | 2021-12-17 07:08 | ANES.PREOP_ITS ---
General Info Date of Service Date Performed: 12/17/21 Height: 5 ft 1 in Weight: 40.7 kg Body Mass Index (BMI): 16.9 Surgical Procedure: Operation Date: 12/17/21 07:40 Proposed Procedure Side Surgeon p Cataract Extraction with IOL Implant Right Lloyd Olivier MD Meds Allergies and Home Medications Allergies Allergy/AdvReac Type Severity Reaction Status Date / Time Sulfa (Sulfonamide Allergy Severe Anaphylaxis Unverified 12/17/21 06:49 Antibiotics) levofloxacin Allergy Intermediate Other (See Unverified 12/17/21 06:49 Comment) Home Medication Medication Instructions Recorded ipratropium 0.5 mg-albuterol 3 mg 3 ml UPD Q4H PRN PRN #180 ml 12/25/18 (2.5 mg base)/3 mL nebulization soln mycophenolate mofetil 500 mg tablet 1,000 mg PO BID 12/14/19 nintedanib 100 mg capsule 150 mg PO BID 12/14/19 albuterol sulfate 90 mcg/actuation 2 puff INHALATION Q4H PRN PRN 11/24/20 aerosol inhaler aspirin 81 mg tablet,delayed 81 mg PO DAILY #30 tab 11/24/20 release benzonatate 100 mg capsule 100 mg PO TID 11/24/20 fluticasone propionate 50 2 spray INTRANASAL DAILY 11/24/20 mcg/actuation nasal spray,suspension megestrol 625 mg/5 mL (125 mg/mL) 5 ml PO DAILY 11/24/20 oral suspension oxycodone 5 mg tablet 5 mg PO HS 11/24/20 tramadol 50 mg tablet 50 mg PO 6XD PRN 11/24/20 cyanocobalamin (vitamin B-12) 1,000 mcg PO DAILY 01/11/21 1,000 mcg tablet (Vitamin B-12) atorvastatin 10 mg tablet 10 mg PO QHS #90 tab 01/31/21 losartan 50 mg-hydrochlorothiazide 1 tab PO DAILY 03/01/21 12.5 mg tablet L. Acidophilus,Casei,Rhamnosus 1 cap PO DAILY #10 cap 08/29/21 [Bio-K PLUS] PFS Active Problems Active Problems: Problem Status Onset Code Posterior subcapsular age-related cataract, right eye H25.041 Nuclear sclerotic cataract of right eye H25.11 Posterior subcapsular age-related cataract of left eye H25.042 Nuclear sclerotic cataract of left eye H25.12 Bronchitis J40 Fracture of middle phalanx of left ring finger S62.625A Cellulitis of left wrist L03.114 Arthritis of left wrist M19.032 Stroke I63.9 Pre-diabetes R73.03 Essential tremor G25.0 Hip pain M25.559 Fall W19.XXXA Chest wall pain R07.89 Hypokalemia E87.6 Stress at home F43.9 SOB (shortness of breath) R06.02 Calcium ureterolithiasis N20.1 Medical History Medical History Acute UTI Chronic back pain Fibromyalgia Hypertension Osteoarthritis Pneumonia Pulmonary fibrosis Patient had previous work-up by Dr. Ferrara in [facility] in March 2018. Patient reports that her PFTs did not show underlying COPD, patient has a follow-up with Dr. Giron in February 16, 2019 F/U with with Dr. Woodard. Has supplemental O2 when needed (1L) Renal stones Stroke 11/24/21-pt. stated it was an acute stroke, f/u Dr. Anderson and stated she no longer needed to follow up with her, she takes a baby aspirin 81mg everyday for prevention Surgical History Surgical History Hx of ultrasound guided needle biopsy of lung S/P cholecystectomy S/P gastric bypass S/P hernia repair S/P hysterectomy Tobacco Smoking/Tobacco Use Status: Never Second hand exposure: Yes (Secondary to her parents as well as ) Alcohol Alcohol Intake: never Substance Use Substance use: Never Substance use type: does not use Prental History History 4 Para Hx # Term Pregnancies 4 Multiple births Hx # Pregnancies Ectopic pregnancies AB induced Hx Number of Living Children AB spontaneous Vital Signs and Lab Results Vital Signs Most Recent Vital Signs in EMR: Most Recent Vital Signs Temp Pulse Resp BP Pulse Ox 36.1 C L 89 24 174/96 H 98 12/17/21 06:37 12/17/21 06:37 12/17/21 06:37 12/17/21 06:37 12/17/21 06:37 Lab Results Blood Type / Crossmatch: No Data to Display Complete Blood Count: No Data to Display Complete Metabolic Panel: No Data to Display Liver Function Panel: No Data to Display Coagulation Panel: No Data to Display Cardiac Panel: No Data to Display Arterial Blood Gas: No Data to Display Venous Blood Gas: No Data to Display Pancreas Panel: No Data to Display Thyroid Panel: No Data to Display Infectious Disease: No Data to Display Blood Cultures: No Data to Display Toxicology Panel: No Data to Display Anesthesia Assessment and Plan Anesthesia History Personal History: No History of Anesthesia Complications Family History: No Family History of Anesthesia Complications Exercise Tolerance Exercise Tolerance: Metabolic Equivalents>4 Cardiac & Pulmonary Exam Cardiac Exam: Normal S1/S2 Heart Sounds Pulmonary Exam: Clear Bilateral Breath Sounds Implantable Cardiac Device Does patient have a Pacemaker or an ICD?: No Airway Exam Known Difficult Airway: No Mallampati Class: 3 Mouth Opening: Normal (> 3cm) Thyromental Distance: Greater than 3 cm Neck Range of Motion: Limited ROM Neck Circumference: Normal Teeth Condition: Edentulous ASA Classification ASA Score: ASA 3 Emergency Case?: No NPO Status NPO Status: NPO Clears >2 hours, Solids >8 hours Anesthesia Plan Resuscitation Status: Full Code Anesthesia Technique: MAC Anesthesia Airway Planned: Natural Airway Monitors Used: Standard Monitors
[2021-12-17 07:11] VITALS: BMI 16.9
[2021-12-17] MEDS: Balanced Salt Soln.-PLUS 500 ML BAG (07:32)
[2021-12-17] MEDS: Povidone-Iodine Ophth 30 ML BTL (07:33)
[2021-12-17] MEDS: Lidocaine 2% Jelly 6 ML SYR (07:34)
[2021-12-17] MEDS: Duovisc Viscoelastic System EACH 1 EACH (07:34)
[2021-12-17] MEDS: Tetracaine 0.5% 4 ML BTL (07:35)
[2021-12-17 07:51] VITALS: BP 169/92; PULSE 87; RESP 18; TEMP 36.1; O2SAT 98
--- NOTE | 2021-12-17 07:55 | W.PM.DSUDISC ---
Discharge Plan Disposition Patient Disposition: HOME Condition: Good Discharge Details Attending Provider: Lloyd Olivier Primary Care Provider: Rober Cho Home Meds and New Rx's Prescriptions: No Action atorvastatin 10 mg tablet 10 mg PO QHS Qty: 90 3RF mycophenolate mofetil 500 mg Tablet 1,000 mg PO BID 0RF nintedanib 100 mg Capsule 150 mg PO BID 0RF tramadol 50 mg tablet 50 mg PO 6XD PRN0RF Label Comments: TAKE 1 TABLET ORALLY 6 TIMES A DAY NEEDED FOR 28 DAYS benzonatate 100 mg capsule 100 mg PO TID 0RF Label Comments: TAKE ONE CAPSULE BY MOUTH THREE TIMES A DAY albuterol sulfate 90 mcg/actuation HFA aerosol inhaler 2 puff inhalation Q4H PRN PRN0RF Label Comments: INHALE TWO PUFFS BY MOUTH EVERY 4 HOURS oxycodone 5 mg tablet 5 mg PO HS 0RF Label Comments: TAKE ONE TABLET BY MOUTH AT BEDTIME megestrol 625 mg/5 mL (125 mg/mL) suspension 5 ml PO DAILY 0RF Label Comments: TAKE 5ML ORALLY EVERY 24 HOURS fluticasone propionate 50 mcg/actuation spray,suspension 2 spray INTRANASAL DAILY 0RF Label Comments: INSTILL 2 SPRAYS INTO EACH NOSTRIL ONCE DAILY DIRECTED aspirin 81 mg Tablet,Delayed Release (Dr/Ec) 81 mg PO DAILY Qty: 30 0RF losartan-hydrochlorothiazide 50-12.5 mg tablet 1 tab PO DAILY 0RF Label Comments: TAKE ONE TABLET BY MOUTH EVERY DAY L. Acidophilus,Casei,Rhamnosus [Bio-K Plus] 1 cap PO DAILY Qty: 10 0RF ipratropium-albuterol 0.5 mg-3 mg(2.5 mg base)/3 mL Solution For Nebulization 3 ml UPD Q4H PRN PRN (Reason: shortness of breath) Qty: 180 0RF cyanocobalamin (vitamin B-12) [Vitamin B-12] 1,000 mcg Tablet 1,000 mcg PO DAILY 0RF Discharge Instructions Stand Alone Forms: Post-op Block Cataract, Post-op Topical Cataract Discharge Orders Discharge Orders: Discharge Order (Routine); Ordered 12/17/21 Ordered By: Lloyd Olivier DS: Diagnosis Discharge Diagnosis (1) Nuclear sclerotic cataract of right eye: Status: Resolved (2) Posterior subcapsular age-related cataract, right eye: Status: Resolved
--- NOTE | 2021-12-17 07:56 | ROE_ITS ---
Date of service: 12/17/21 Time of Service: 07:56 Operative Note Operative Note DATE OF PROCEDURE: 12/17/21 PRE-OP DIAGNOSIS: Nuclear/posterior subcapsular cataract, right eye POST-OP DIAGNOSIS: same PROCEDURE: Cataract extraction using phacoemulsification with intraocular lens implant, right eye SURGEON: Lloyd Oilvier ANESTHESIA TYPE: Local By Surgeon and MAC Refer to Anesthesia Record ESTIMATED BLOOD LOSS: 0 PATHOLOGY: none sent COMPLICATIONS: None Patient was transported to: same day Patient's condition: stable Implants: Bladimir & Bladimir/MELISSA Tecnis [id number] Indications: Progressive visual loss due to cataract, right eye Procedure Description: CATARACT SURGERY OPERATIVE REPORT PREOPERATIVE DIAGNOSIS: 1. Nuclear/posterior subcapsular cataract, right eye POSTOPERATIVE DIAGNOSIS: Same OPERATION: 1. Cataract extraction using phacoemulsification with posterior chamber intraocular lens implant, right eye. IOL: IOL Care Management Coordinator/Model: Bl[employer]imir & Bladimir / MELISSA Tecnis [id number] IOL Power: + 21.5 diopters IOL Serial Number: [id number] Optic Diameter: 6.0mm Haptic/Overall Diameter: 13.0mm PHACO INFO: Calixto [email or web address] Vision System with OZil and Active Fluidics Cumulative Dispersed Energy (CDE): 12.24 seconds SURGEON: Lloyd Olivier MD, JOHANNA ANESTHESIA: Monitored Anesthesia Care (MAC), with local sub-tenon's anesthetic infiltration COMPLICATIONS: None SPECIMENS: None INDICATIONS FOR PROCEDURE: The patient is a 71-year-old lady with history of diminished visual acuity in both eyes secondary to the development of nuclear/posterior subcapsular cataract. She is significantly symptomatic that she desires cataract surgery and attempt to improve and maximize her vision. PROCEDURE: The correct surgical eye was identified and marked as the right eye and the pupil was dilated in the preoperative area using mydriatics and cycloplegics. The dilated pupil size was 7.0 mm. She elected to proceed without oral sedation. The patient was brought to the operating room where cardiopulmonary monitoring was instituted and surgical time-out was performed, confirming the correct operative eye and IOL power. Topical anesthesia was administered and ophthalmic povidone-iodine 5% was instilled into the conjunctival fornices. Lidocaine gel was applied to the cornea and the mervat-ocular area was prepped with Betadine 10% solution and draped in the usual sterile fashion for intraocular surgery, including an ap erture drape. A Tegaderm transparent film dressing was cut in half and used to cover the lashes and lid margins. Care was taken to sequester the lashes and lid margins under the Tegaderm dressing. A lid speculum was placed between the lids of the operative eye and the Calixto Lux[employer] Revalia operating microscope was maneuvered into position. Paulo scissors were then used to make a conjunctival buttonhole approximately 6mm posterior to the limbus in the inferonasal quadrant. Blunt dissection was carried out to expose bare sclera, and a blunt-tipped sub-tenon?s anesthesia cannula was introduced and passed posteriorly along the globe where non- preserved plain lidocaine was injected into posterior sub-Tenon?s space. A sideport knife was used to make a paracentesis port inferotemporally. I ntraocular phenylephrine/lidocaine was injected into the anterior chamber. The anterior chamber was filled with viscoelastic. A 2.4mm keratome knife was used to create a half-thickness groove at the limbus and then to construct a three- plane near-clear corneal tunnel extending 2.0mm into clear cornea superiortemporally. A flap was raised on the anterior capsule and capsulorhexis forceps were used to complete a continuous curvilinear capsulorhexis of 5.0 mm. Balanced salt solution was then used to perform cortical cleaving hydrodissection and nuclear hydrodelineation until the lens could be freely rotated within the capsular bag. The lens nucleus was then disassembled and removed within the capsular bag and iris plane using phacoemulsification. Residual cortical material was removed using the I/A handpiece. The posterior capsule was carefully polished to remove as much residual lens epithelial cells as safely possible. The capsular bag was then inflated and the anterior chamber deepened with viscoelastic. The lens implant described above was inserted into the capsular bag using the MELISSA Staunton Injector. A Kuglen hook was used to dial the IOL into position. Residual viscoelastic was then removed first from posterior to the IOL, then from the anterior chamber using the I/A handpiece. The lens implant was noted to center nicely within the capsular bag. The incisions were stromally hydrated, and the anterior chamber was reformed using BSS. Then 0.5cc of moxifloxacin 1.0mg/ml were injected into the capsular bag and anterior chamber. The incisions were checked with a Weck spear and found to be secure. Several drops of ophthalmic povidone-iodine 5% were then applied to the eye followed by two drops of Imprimis combination prednisolone/moxifloxacin/nepafenac solution. The drapes were removed and a clear plastic protective eye shield was placed over the eye. The patient was then returned to Same Day Surgery in stable condition.
--- NOTE | 2021-12-17 08:03 | W.ANESPOSTOP ---
Postoperative Evaluation Date, Time and Location Date Performed: 12/17/21 Time Performed: 07:58 Patient Location: Day Surgery Unit Vital Signs Most Recent Imported Vital Signs: Most Recent Vital Signs Temp Pulse Resp BP Pulse Ox 36.1 C L 87 18 169/92 H 98 12/17/21 07:51 12/17/21 07:51 12/17/21 07:51 12/17/21 07:51 12/17/21 07:51 Pain Score Most Recent Pain Score: Most Recent Pain Score Pain Level 0 12/17/21 06:37 Assessment Mental Status: Awake (Alert & Oriented to Patient Baseline) Airway and Respiratory Function: Patent airway with normal (patient baseline) respiratory exam Cardiovascular Function: Hemodynamically Stable Hydration Status: Adequately Hydrated Nausea & Vomiting: No Nausea or Vomiting Pain: Pt. Denies Any Pain Peripheral Nerve Block: Patient did not receive a nerve block
--- NOTE | 2021-12-17 09:16 | NUR.NOTE ---
0910: Dr. Olivier spoken to on unit. aware of pt. discomfort 5-01/25 and that pt. states she has Oxy at home. aware pt. wanted to leave prior to speaking to him.Nursing Note:
== END 2021-12-17 08:24 | disposition home or self-care (01) ==
PROVIDERS: PCP Family Medicine; Visit Provider Ophthalmology
PROC: (CPT 66984; principal; 2021-12-17 07:30)
DX: H25.041 Posterior subcapsular polar age-related cataract, right eye (principal); R73.03 Prediabetes; I10 Essential (primary) hypertension; J84.10 Pulmonary fibrosis, unspecified
CPT/HCPCS: 66984; V2632

== ENCOUNTER 2021-12-31 09:05 | Day surgery (SDC) | payer MEDICARE, MEDICAID, SELFPAY ==
[2021-12-31 09:20] VITALS: BP 150/105; PULSE 98; RESP 28; TEMP 36.1; O2SAT 95
[2021-12-31] MEDS: Tropicam./Phenyleph. (1/2.5%) 5 ML BTL OS ×3 (09:36→09:46)
--- NOTE | 2021-12-31 09:53 | ANES.PREOP_ITS ---
General Info Date of Service Date Performed: 12/31/21 Height: 5 ft 8 in Weight: 45.359 kg Body Mass Index (BMI): 15.2 Surgical Procedure: Operation Date: 12/31/21 10:40 Proposed Procedure Side Surgeon p Cataract Extraction with IOL Implant Left Lloyd Olivier MD Meds Allergies and Home Medications Allergies Allergy/AdvReac Type Severity Reaction Status Date / Time Sulfa (Sulfonamide Allergy Severe Anaphylaxis Unverified 12/31/21 09:24 Antibiotics) levofloxacin Allergy Intermediate Other (See Unverified 12/31/21 09:24 Comment) Home Medication Medication Instructions Recorded ipratropium 0.5 mg-albuterol 3 mg 3 ml UPD Q4H PRN PRN shortness of 12/25/18 (2.5 mg base)/3 mL nebulization breath #180 mL soln mycophenolate mofetil 500 mg tablet 1,000 mg PO BID 12/14/19 nintedanib 100 mg capsule 150 mg PO BID 12/14/19 albuterol sulfate 90 mcg/actuation 2 puff inhalation Q4H PRN PRN 11/24/20 aerosol inhaler aspirin 81 mg tablet,delayed 81 mg PO DAILY #30 tabs 11/24/20 release benzonatate 100 mg capsule 100 mg PO TID 11/24/20 fluticasone propionate 50 2 spray intranasal DAILY 11/24/20 mcg/actuation nasal spray,suspension megestrol 625 mg/5 mL (125 mg/mL) 5 ml PO DAILY 11/24/20 oral suspension oxycodone 5 mg tablet 5 mg PO HS 11/24/20 tramadol 50 mg tablet 50 mg PO 6XD PRN 11/24/20 cyanocobalamin (vitamin B-12) 1,000 mcg PO DAILY 01/11/21 1,000 mcg tablet (Vitamin B-12) atorvastatin 10 mg tablet 10 mg PO QHS #90 tabs 01/31/21 losartan 50 mg-hydrochlorothiazide 1 tab PO DAILY 03/01/21 12.5 mg tablet L. Acidophilus,Casei,Rhamnosus 1 cap PO DAILY #10 caps 08/29/21 [Bio-K PLUS] Current Visit Medications: Current Medications Generic Name Dose Route Start Last Admin Trade Name Freq PRN Reason Stop Dose Admin Acetaminophen 1,000 mg 12/31/21 06:00 Acetaminophen 500 Mg Tab PO Q4H PRN PRN Miscellaneous Medication 0 ml 12/31/21 06:00 Prednisolone 1%, Moxifloxacin 0.5%, Nepafenac 0.1% 5ml Btl OS DIRECTED [facility] Miscellaneous Medication 0 ml 12/31/21 06:00 12/31/21 09:46 Tropicam./Phenyleph. 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 Ferrara in [facility] in March 2018. Patient reports that her PFTs did not show underlying COPD, patient has a follow-up with Dr. Giron in February 16, 2019 F/U with with Dr. Woodard. Has supplemental O2 when needed (1L) Renal stones Stroke 11/24/21-pt. stated it was an acute stroke, f/u Dr. Anderson and stated she no longer needed to follow up with her, she takes a baby aspirin 81mg everyday for prevention Surgical History Surgical History (Updated 12/31/21 @ 09:24 by Christina Trent) Hx of cataract surgery Hx of ultrasound guided needle biopsy of lung S/P cholecystectomy S/P gastric bypass S/P hernia repair S/P hysterectomy Tobacco Smoking/Tobacco Use Status: Never Second hand exposure: Yes (Secondary to her parents as well as ) Alcohol Alcohol Intake: never Substance Use Substance use: Never Substance use type: does not use Prental History History 4 Para Hx # Term Pregnancies 4 Multiple births Hx # Pregnancies Ectopic pregnancies AB induced Hx Number of Living Children AB spontaneous Vital Signs and Lab Results Vital Signs Most Recent Vital Signs in EMR: Most Recent Vital Signs Temp Pulse Resp BP Pulse Ox 36.1 C L 98 H 28 H 150/105 H 95 12/31/21 09:20 12/31/21 09:20 12/31/21 09:20 12/31/21 09:20 12/31/21 09:20 Lab Results Blood Type / Crossmatch: No Data to Display Complete Blood Count: No Data to Display Complete Metabolic Panel: No Data to Display Liver Function Panel: No Data to Display Coagulation Panel: No Data to Display Cardiac Panel: No Data to Display Arterial Blood Gas: No Data to Display Venous Blood Gas: No Data to Display Pancreas Panel: No Data to Display Thyroid Panel: No Data to Display Infectious Disease: No Data to Display Blood Cultures: No Data to Display Toxicology Panel: No Data to Display Imaging and Studies Imaging and Studies Study information below may be from another EMR and interpreted by another provider. Please see original notes in EMR for more complete details. EKG Summary: Conclusion Sinus rhythm...normal P axis, V-rate 60- 99 Echocardiogram Summary: Conclusion Normal left ventricular wall thickness and chamber size. Estimated ejection fraction is 50 to 55%. The inferoapical segment appears dyskinetic Normal right ventricular size and systolic function Both atria are normal in size Sclerotic trileaflet aortic valve without stenosis or regurgitation Mild mitral annular calcification. Trace mitral regurgitation The tricuspid valve is structurally normal with trace regurgitation. Estimated right ventricular systolic pressure is 42 mmHg, mild pulmonary hypertension Mildly dilated ascending aorta Anesthesia Assessment and Plan Anesthesia History Personal History: No History of Anesthesia Complications Family History: No Family History of Anesthesia Complications Exercise Tolerance Exercise Tolerance: Metabolic Equivalents>4 Cardiac & Pulmonary Exam Cardiac Exam: Normal S1/S2 Heart Sounds Pulmonary Exam: Clear Bilateral Breath Sounds Implantable Cardiac Device Does patient have a Pacemaker or an ICD?: No Airway Exam Known Difficult Airway: No Mallampati Class: 3 Mouth Opening: Normal (> 3cm) Thyromental Distance: Greater than 3 cm Neck Range of Motion: Limited ROM Neck Circumference: Normal Teeth Condition: Edentulous ASA Classification ASA Score: ASA 3 Emergency Case?: No NPO Status NPO Status: NPO Clears >2 hours, Solids >8 hours Anesthesia Plan Resuscitation Status: Full Code Anesthesia Technique: MAC Anesthesia Airway Planned: Natural Airway Monitors Used: Standard Monitors
[2021-12-31 10:31] VITALS: BMI 15.2
[2021-12-31] MEDS: Tetracaine 0.5% 4 ML BTL OS (10:34)
[2021-12-31] MEDS: Balanced Salt Soln.-PLUS 500 ML BAG (10:34)
[2021-12-31] MEDS: Duovisc Viscoelastic System EACH 1 EACH (10:35)
[2021-12-31] MEDS: Lidocaine 2% Jelly 6 ML SYR (10:35)
[2021-12-31] MEDS: Povidone-Iodine Ophth 30 ML BTL (10:37)
--- NOTE | 2021-12-31 10:55 | W.PM.DSUDISC ---
Discharge Plan Disposition Patient Disposition: HOME Condition: Good Discharge Details Attending Provider: Lloyd Olivier Primary Care Provider: Rober Cho Home Meds and New Rx's Prescriptions: No Action atorvastatin 10 mg tablet 10 mg PO QHS Qty: 90 3RF mycophenolate mofetil 500 mg Tablet 1,000 mg PO BID nintedanib 100 mg Capsule 150 mg PO BID tramadol 50 mg tablet 50 mg PO 6XD PRN Label Comments: TAKE 1 TABLET ORALLY 6 TIMES A DAY NEEDED FOR 28 DAYS benzonatate 100 mg capsule 100 mg PO TID Label Comments: TAKE ONE CAPSULE BY MOUTH THREE TIMES A DAY albuterol sulfate 90 mcg/actuation HFA aerosol inhaler 2 puff inhalation Q4H PRN PRN Label Comments: INHALE TWO PUFFS BY MOUTH EVERY 4 HOURS oxycodone 5 mg tablet 5 mg PO HS Label Comments: TAKE ONE TABLET BY MOUTH AT BEDTIME megestrol 625 mg/5 mL (125 mg/mL) suspension 5 ml PO DAILY Label Comments: TAKE 5ML ORALLY EVERY 24 HOURS fluticasone propionate 50 mcg/actuation spray,suspension 2 spray INTRANASAL DAILY Label Comments: INSTILL 2 SPRAYS INTO EACH NOSTRIL ONCE DAILY DIRECTED aspirin 81 mg Tablet,Delayed Release (Dr/Ec) 81 mg PO DAILY Qty: 30 0RF losartan-hydrochlorothiazide 50-12.5 mg tablet 1 tab PO DAILY Label Comments: TAKE ONE TABLET BY MOUTH EVERY DAY L. Acidophilus,Casei,Rhamnosus [Bio-K Plus] 1 cap PO DAILY Qty: 10 0RF ipratropium-albuterol 0.5 mg-3 mg(2.5 mg base)/3 mL Solution For Nebulization 3 ml UPD Q4H PRN PRN (Reason: shortness of breath) Qty: 180 0RF cyanocobalamin (vitamin B-12) [Vitamin B-12] 1,000 mcg Tablet 1,000 mcg PO DAILY Discharge Instructions Stand Alone Forms: Post-op Topical Cataract, Press Ganey (DSU) Discharge Orders Discharge Orders: Discharge Order (Routine); Ordered 12/31/21 Ordered By: Lloyd Olivier DS: Diagnosis Discharge Diagnosis (1) Nuclear sclerotic cataract of left eye: Status: Resolved (2) Posterior subcapsular age-related cataract of left eye: Status: Resolved
--- NOTE | 2021-12-31 10:55 | W.PM.OP ---
Date of service: 12/31/21 Time of Service: 09:56 Operative Note Operative Note DATE OF PROCEDURE: 12/31/21 PRE-OP DIAGNOSIS: Nuclear/posterior subcapsular cataract, left eye POST-OP DIAGNOSIS: same PROCEDURE: Cataract extraction using phacoemulsification with intraocular lens implant, left eye SURGEON: Lloyd Olivier ANESTHESIA TYPE: Local By Surgeon and MAC Refer to Anesthesia Record PATHOLOGY: none sent COMPLICATIONS: None Patient was transported to: same day Patient's condition: stable Implants: [employer] / [employer] Tecnis [id number] Indications: Progressive decreased vision due to cataract, left eye Procedure Description: CATARACT SURGERY OPERATIVE REPORT PREOPERATIVE DIAGNOSIS: 1. Nuclear/posterior subcapsular cataract, left eye POSTOPERATIVE DIAGNOSIS: Same OPERATION: 1. Cataract extraction using phacoemulsification with posterior chamber intraocular lens implant, left eye. IOL: IOL Double Head Machine Operator/Model: Bl[employer]imir & Bladimir / MELISSA Tecnis [id number] IOL Power: + 20.0 diopters IOL Serial Number: [id number] Optic Diameter: 6.0 mm Haptic/Overall Diameter: 13.0 mm PHACO INFO: [employer]ixto Targeted Growthurion Vision System with OZil and Active Fluidics Cumulative Dispersed Energy (CDE): 4.87 seconds SURGEON: Lloyd Olivier MD, JOHANNA ANESTHESIA: Monitored A [facility] (MAC), with local sub-tenon's anesthetic infiltration COMPLICATIONS: None SPECIMENS: None INDICATIONS FOR PROCEDURE: The patient is a 71-year-old lady with history of diminished visual acuity and both eyes secondary to the development of bilateral cataracts. She has already undergone cataract surgery in the left eye and is doing well postoperatively. She now presents for cataract surgery in the right eye. PROCEDURE: The correct surgical eye was identified and marked as the left eye and the pupil was dilated in the preoperative area using mydriatics and cycloplegics. The dilated pupil size was 7.0 mm. She elected to proceed without oral sedation. The patient was brought to the operating room where cardiopulmonary monitoring was instituted and surgical time-out was performed, confirming the correct operative eye and IOL power. Topical anesthesia was administered and ophthalmic povidone-iodine 5% was instilled into the conjunctival fornices. Lidocaine gel was applied to the cornea and the mervat-ocular area was prepped with Betadine 10% solution and draped in the usual sterile fashion for intraocular surgery, including an aperture drape. A Tegaderm transparent film dressing was cut in half and used to cover the lashes and lid margins. Care was taken to sequester the lashes and lid margins under the Tegaderm dressing. A lid speculum was placed between the lids of the operative eye and the Calixto Lux[employer] Revalia operating microscope was maneuvered into position. Paulo scissors were then used to make a conjunctival buttonhole approximately 6mm posterior to the limbus in the inferonasal quadrant. Blunt dissection was carried out to expose bare sclera, and a blunt-tipped sub-tenon?s anesthesia cannula was introduced and passed posteriorly along the globe where non-preserved plain lidocaine was injected into posterior sub-Tenon?s space. A sideport knife was used to make a paracentesis port superiorly/superiortemporally. Intraocular phenylephrine/lidocaine was injected int the anterior chamber.. The anterior chamber was filled with viscoelastic. A 2.4mm keratome knife was used to construct a 2-plane near-clear corneal tunnel extending 2.0mm into clear cornea temporally. A flap was raised on the anterior capsule and capsulorhexis forceps were used to complete a continuous curvilinear capsulorhexis of 5.0 mm. Moderate zonular laxity was noted. Balanced salt solution was then used to perform cortical cleaving hydrodissection and nuclear hydrodelineation until the lens could be freely rotated within the capsular bag. The lens nucleus was then disassembled and removed within the capsular bag and iris plane using phacoemulsification. Residual cortical material was removed using the 45-degree angled silicone I/A tip with 0.3mm port. The posterior capsule was carefully polished to remove as much residual lens epithelial cells as safely possible. The capsular bag was then inflated and the anterior chamber deepened with viscoelastic. The lens implant described above was inserted into the capsular bag using the MELISSA [place] Injector. A Kuglen hook was used to dial the IOL into position. Residual viscoelastic was then removed first from posterior to the IOL, then from the anterior chamber using the I/A handpiece. The lens implant was noted to center nicely within the capsular bag. The incisions were stromally hydrated, and the anterior chamber was reformed using BSS. Then 0.5cc of moxifloxacin 1.0mg/ml were injected into the capsular bag and anterior chamber. The incisions were checked with a Weck spear and found to be secure. Several drops of ophthalmic povidone-iodine 5% were then applied to the eye followed by two drops of Imprimis combination prednisolone/moxifloxacin/nepafenac solution. The drapes were removed and a clear plastic protective eye shield was placed over the eye. The patient was then returned to Same Day Surgery in stable condition.
[2021-12-31 11:01] VITALS: BP 148/80; PULSE 89; RESP 26; TEMP 36.1; O2SAT 100
--- NOTE | 2021-12-31 11:33 | W.ANESPOSTOP ---
Postoperative Evaluation Date, Time and Location Date Performed: 12/31/21 Time Performed: 10:53 Patient Location: Day Surgery Unit Vital Signs Most Recent Imported Vital Signs: Most Recent Vital Signs Temp Pulse Resp BP Pulse Ox 36.1 C L 89 26 H 148/80 H 100 12/31/21 11:01 12/31/21 11:01 12/31/21 11:01 12/31/21 11:01 12/31/21 11:01 Pain Score Most Recent Pain Score: Most Recent Pain Score Pain Level 0 12/31/21 11:01 Assessment Mental Status: Awake (Alert & Oriented to Patient Baseline) Airway and Respiratory Function: Patent airway with normal (patient baseline) respiratory exam Cardiovascular Function: Hemodynamically Stable Hydration Status: Adequately Hydrated Nausea & Vomiting: No Nausea or Vomiting Pain: Pt. Denies Any Pain Peripheral Nerve Block: Other (Local by Dr. Olivier)
== END 2021-12-31 11:17 | disposition home or self-care (01) ==
PROVIDERS: PCP Family Medicine; Visit Provider Ophthalmology
PROC: (CPT 66984; principal; 2021-12-31 10:30)
DX: H25.042 Posterior subcapsular polar age-related cataract, left eye (principal); R73.03 Prediabetes; M79.7 Fibromyalgia
CPT/HCPCS: 66984; V2632

== ENCOUNTER 2022-02-23 15:58 | Inpatient (IN) | payer MEDICARE, MEDICAID, SELFPAY ==
[2022-02-23] VITALS (45 sets, daily range): BP systolic 90–116; BP diastolic 52–93; PULSE 82–125; RESP 12–46; TEMP 36.2–36.5; O2SAT 97–100
--- NOTE | 2022-02-23 15:45 | RT.EKG_ITS ---
APPROVED REPORT Exam: Resting ECG Reason for Exam: low oxygen sats Patient Location: E HR:93 bpm ECG Measurements Heart Rate 93 AXIS [place] 160 P 69 QRSd 84 QRS -16 QT 310 T 48 QTc 388 Conclusion Sinus rhythm...normal P axis, V-rate 60- 99 Probable left atrial enlargement...P >50mS, <-0.10mV V1. Sinus. No STEMI. I have reviewed and interpreted ECG and agree with software generated interpretation.
--- NOTE | 2022-02-23 16:15 | DI.RAD_ITS ---
Exam(s) XR PORTABLE CHEST AP EXAM: XR PORTABLE CHEST AP CLINICAL HISTORY: shortness of breath, cough TECHNIQUE: 2D digital imaging was performed of the chest. One image was obtained. An AP view was ob tained. COMPARISON: CR,XR XR PORTABLE CHEST AP from 08/25/2021 FINDINGS: MEDIASTINUM: Normal. HEART: Normal. PULMONARY VASCULATURE: Normal. LUNGS: There is diffuse chronic pulmonary fibrosis. Increased opacities are seen in the lung bases b ilaterally. PLEURAL SPACE: No pleural effusion or pneumothorax. BONE:Within normal limits for the patient's age. OTHER FINDINGS:Postsurgical changes are again seen in the left upper quadrant of the abdomen. IMPRESSION: 1. Diffuse chronic interstitial disease. 2. Increased lung markings in the bases bilaterally. This may represent an acute pneumonia. Please correlate clinically. DATA REPOSITORY: RADIATION DOSE DELIVERED:
[2022-02-23] MEDS: Albuterol/Ipratropium 3 ML UPD VIAL UPD (16:45)
[2022-02-23] MEDS: Lactated Ringers 500 ML IV (16:45)
[2022-02-23] MEDS: methylPREDNISolone SUCC 125 MG VIAL 80 MG IVP (16:46)
[2022-02-23 16:51] LABS: BE (Venous) -3 mmol/L (-2-3); HCO3 (Venous) 23 mmol/L (23-28); O2 Sat (Venous) 40 %; TCO2 (Venous) 22 mmol/L (24-29); pCO2 (Venous) 47 mmHg (41-51); pO2 (Venous) 27 mmHg
[2022-02-23 16:52] LABS: Abs Immature Grans 0.51 10^3/uL (0.0-0.06); Absolute Lymphocyte Count 0.48 10^3/uL (1.2-3.4); Absolute Neutrophil Count 32.58 10^3/uL (1.2-6.7); HCT 37.8 % (36.0-46.0); HGB 12.4 g/dL (11.2-15.7); Immature Grans % 1.5; Lymphocytes % 1.4; MCH 31.4 pg (27.0-33.0); MCHC 32.8 % (32.0-36.0); MCV 96 fL (80-95); MPV 9.4 fL (8.0-11.0); Monocytes % 2.4; Neutrophils % 94.7; Platelet Count 255 10^3/uL (130-400); RBC 3.95 10^6/uL (3.93-5.22); RDW 14.6 % (11.7-14.6)
[2022-02-23 16:58] LABS: Lactate 2.3 mmol/L (0.6-1.4)
[2022-02-23 17:04] LABS: Absolute Monocyte Count 0.83 10^3/uL (0.1-0.8)
[2022-02-23 17:17] LABS: ALT 22 U/L (14-59); AST 39 U/L (15-37); Albumin 1.9 g/dL (3.4-5.0); Alkaline Phosphatase 176 U/L (46-116); Anion Gap 13.5 mmol/L (3-11); Bilirubin, Total 0.3 mg/dL (0.2-1.0); CO2 24.5 mmol/L (21.0-32.0); CREATININE 2.2 mg/dL (0.55-1.02); Calcium 9.1 mg/dL (8.5-10.1); Chloride 100 mmol/L (98-107); Glucose 118 mg/dL (74-106); Potassium 3.8 mmol/L (3.5-5.1); Sodium 138 mmol/L (136-145); Total Protein 6.7 g/dL (6.4-8.2)
[2022-02-23 17:24] LABS: BUN 93 mg/dL (7-18)
[2022-02-23 17:26] LABS: NT-proBNP 1716 pg/mL (<300)
[2022-02-23 17:32] LABS: Troponin I 101 ng/L (<or=60)
[2022-02-23 17:34] LABS: Diff Comment Diff Reviewed; RBC Morphology Normal
[2022-02-23] MEDS: Normal Saline 1,000 ML 1000 ML IV (17:46)
[2022-02-23] MEDS: cefTRIAXone 2 GM/50 ML BAG IVPB (17:47)
[2022-02-23 17:49] LABS: COVID-19 PCR Negative (Negative); Influenza A PCR Negative (Negative); Influenza B PCR Negative (Negative); RSV PCR Negative (Negative)
--- NOTE | 2022-02-23 18:40 | DI.VRAD_ITS ---
PROCEDURE INFORMATION: Exam: XR Chest Exam date and time: 02/23/2022 5:51 PM Age: 71 years old Clinical indication: Other: Shortness of breath, cough TECHNIQUE: Imaging protocol: Radiologic exam of the chest. Views: 1 view. COMPARISON: XR PORTABLE CHEST AP 08/25/2021 8:53 PM FINDINGS: Limitations: Evaluation difficult due to over penetrated film. Airway: Patent Lungs: Essentially stable diffuse bilateral chronic interstitial prominence, compatible with chronic interstitial lung disease. There are slightly more pronounced ground-glass airspace opacities noted in the bilateral lung bases. Pleural spaces: Unremarkable. No pleural effusion. No pneumothorax. Heart/Mediastinum: Unremarkable. No cardiomegaly. Bones/joints: No acute skeletal abnormality or aggressive osseous lesion. Intraperitoneal space: Multiple surgical clips in the upper abdomen, stable. IMPRESSION: 1. Stable diffuse and severe chronic interstitial lung disease. 2. High concern for acute pneumonia in the bilateral lung bases. Dictated and Authenticated by: Michael Dubois MD. Ordering:LUIS Porras MD
[2022-02-23 19:05] LABS: Troponin I 102 ng/L (<or=60)
--- NOTE | 2022-02-23 19:08 | ED.GENADUL_ITS ---
Discharge Plan Disposition Patient Disposition: [facility] INPATIENT Condition: Serious Discharge Details Clinical Impression: Pulmonary fibrosis, Pneumonia, ARPIT (acute kidney injury), Acute dehydration Admit Date/Time: 02/23/22 19:25 Admit Provider: Billy Acosta Attending Provider: Billy Acosta Primary Care Provider: Rober Cho ED Provider: Chiquita Ma Medical Decision Making Patient has white count of 34,000, tachycardia, lactic acidosis, elevated BUN, ARPIT 2.2 creatinine Patient need sepsis criteria likely in the presence of pneumonia with history chronically immunosuppressed on CellCept with pulmonary fibrosis history Feeling marked improvement after DuoNeb and Solu-Medrol 80 mg IV Given comorbidities and presentation, given doxycycline and ceftriaxone Patient will need admission secondary to dehydration, sepsis, likely pneumonia, chronic respiratory failure Case discussed with Dr. Huerta, agreeable to admitting patient port score of 131 Medical Records Medical records reviewed: Yes I reviewed the patient's medical records. Lab Data Lab results reviewed: Yes I reviewed the patient's lab results. HPI General Date/Time Provider Initiated Documentation: 02/23/22 16:00 . HPI Narrative: This 71-year-old female with history of hypertension, pulmonary fibrosis, pneumonia presents with report of weakness and shortness of breath for the past 4 days. She has been having difficulty breathing on her baseline 2 L of oxygen. She is also had limited to drink secondary to being short of breath. She does not been able to ambulate secondary to weakness per patient. She has had cough and was recently exposed to her upper respiratory illness. She is vaccinated for COVID. She has any new calf pain or swelling. She states her symptoms are consistent with her prior episodes of pneumonia. She denies any chest pain or pleuritic symptoms associated. She does not smoke tobacco. Related Data Home Medications Medication Instructions Recorded Confirmed ipratropium 0.5 mg-albuterol 3 mg 3 ml UPD Q4H PRN PRN shortness of 12/25/18 02/23/22 (2.5 mg base)/3 mL nebulization breath #180 mL soln mycophenolate mofetil 500 mg tablet 1,000 mg PO BID 12/14/19 12/31/21 nintedanib 100 mg capsule 150 mg PO BID 12/14/19 02/23/22 albuterol sulfate 90 mcg/actuation 2 puff inhalation Q4H PRN PRN 11/24/20 12/31/21 aerosol inhaler aspirin 81 mg tablet,delayed 81 mg PO DAILY #30 tabs 11/24/20 12/31/21 release benzonatate 100 mg capsule 100 mg PO TID 11/24/20 12/31/21 fluticasone propionate 50 2 spray intranasal DAILY 11/24/20 12/31/21 mcg/actuation nasal spray,suspension megestrol 625 mg/5 mL (125 mg/mL) 5 ml PO DAILY 11/24/20 12/31/21 oral suspension oxycodone 5 mg tablet 5 mg PO HS 11/24/20 02/23/22 tramadol 50 mg tablet 50 mg PO 6XD PRN 11/24/20 02/23/22 cyanocobalamin (vitamin B-12) 1,000 mcg PO DAILY 01/11/21 12/31/21 1,000 mcg tablet (Vitamin B-12) atorvastatin 10 mg tablet 10 mg PO QHS #90 tabs 01/31/21 12/31/21 losartan 50 mg-hydrochlorothiazide 1 tab PO DAILY 03/01/21 02/23/22 12.5 mg tablet L. Acidophilus,Casei,Rhamnosus 1 cap PO DAILY #10 caps 08/29/21 12/31/21 [Bio-K PLUS] albuterol sulfate 90 mcg/actuation 2 puff inhalation Q4H PRN 02/23/22 02/23/22 aerosol inhaler prednisone 10 mg tablet 20 mg PO USEASDIRECTD 02/23/22 02/23/22 Previous Rx's Medication Instructions Recorded ipratropium 0.5 mg-albuterol 3 mg 3 ml UPD Q4H PRN PRN shortness of 12/25/18 (2.5 mg base)/3 mL nebulization breath #180 mL soln aspirin 81 mg tablet,delayed 81 mg PO DAILY #30 tabs 11/24/20 release atorvastatin 10 mg tablet 10 mg PO QHS #90 tabs 01/31/21 L. Acidophilus,Casei,Rhamnosus 1 cap PO DAILY #10 caps 08/29/21 [Bio-K PLUS] Allergies Allergy/AdvReac Type Severity Reaction Status Date / Time Sulfa (Sulfonamide Allergy Severe Anaphylaxis Unverified 02/23/22 16:19 Antibiotics) levofloxacin Allergy Intermediate Other (See Unverified 02/23/22 16:19 Comment) General Stated Complaint: RespSymp JAMIE: 2 Review of Systems All systems reviewed & are unremarkable except as noted in HPI and below PFSH All Active Problems (Updated 02/23/22 @ 22:00 by SARTHAK Calle) ARPIT (acute kidney injury) (Acute) Acute dehydration (Acute) Pneumonia (Acute) Bilateral lower lobe Pulmonary fibrosis (Acute) Patient had previous work-up by Dr. Ferrara in [facility] in March 2018. Patient reports that her PFTs did not show underlying COPD, patient has a follow-up with Dr. Giron in February 16, 2019 F/U with with Dr. Woodard. Has supplemental O2 when needed (1L) Hip pain (Chronic) SOB (shortness of breath) (Acute) Medical History (Updated 02/23/22 @ 22:00 by SARTHAK Calle) Acute UTI Arthritis of left wrist Calcium ureterolithiasis Chronic back pain Essential tremor Fibromyalgia Hypertension Osteoarthritis Pre-diabetes Renal stones Stress at home Stroke Stroke 11/24/21-pt. stated it was an acute stroke, f/u Dr. Anderson and stated she no longer needed to follow up with her, she takes a baby aspirin 81mg everyday for prevention Surgical History (Updated 02/23/22 @ 20:44 by Billy Acosta MD) Hx of cataract surgery Hx of ultrasound guided needle biopsy of lung S/P cholecystectomy S/P gastric bypass S/P hernia repair S/P hysterectomy Family History Mother Stroke Maternal Grandmother Stroke Maternal Uncle Stroke Social History Smoking/Tobacco Use Status: Never Second Hand Exposure: Yes (Secondary to her parents as well as ) Smoking risk assessment performed?: Yes Alcohol Intake: never Drug use: Never Substance use type: does not use Household members: family and children Housing: other Details: moble home Number of Children: 5 number of grandchildren: 8 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 Pets and animals: Yes Pets and animals: dog(s) Current gender identity: female What is your relationship status?: Panel score (0-1 are the most socially isolated patients): 0 What type of physical activity do you participate in: walking Frequency: daily Seatbelt use: always Do you feel safe at home: Yes Do you feel safe in your relationship?: Yes History History 4 Para Hx # Term Pregnancies 4 Multiple births Hx # Pregnancies Ectopic pregnancies AB induced Hx Number of Living Children AB spontaneous Exam Const General: cooperative, well groomed and frail appearing Orientation: alert and oriented x3 HENMT Face and sinus: No dry mucous membranes Eyes Pupils: PERRL Resp Effort & Inspection: normal respiratory effort Other: Crackles bilaterally Cardio Rate: regular rate Rhythm: regular rhythm GI Other: Nontender abdominal exam Skin General skin exam: no rashes or lesions noted Neuro General: patient alert and patient oriented x3 Speech: speech normal Extrem Other: No peripheral edema Course Vital Signs Vital signs: Vital Signs Respiratory Rate 46 H 02/23/22 16:01 Temperature 36.2 C L 02/23/22 16:03 Temperature Source Temporal Artery Scan 02/23/22 16:03 Pulse 88 02/23/22 17:31 Pulse 92 H 02/23/22 17:40 Respiratory Rate 24 02/23/22 17:40 Respiratory Effort 02/23/22 17:48 Respiratory Depth Normal 02/23/22 17:48 Blood Pressure 103/58 L 02/23/22 17:31 Blood Pressure Mean 69 02/23/22 17:31 Blood Pressure Position Supine 02/23/22 16:03 Pulse Oximetry 99 02/23/22 17:10 Oxygen Delivery Method Non-Rebreather 02/23/22 16:03 Oxygen Flow Rate 0 02/23/22 16:03 Pain Level 0 02/23/22 16:03 Lab/Test Results Lab/Test Results: 02/23/22 18:30 Blood Blood Culture - Pending 02/23/22 17:45 Blood Blood Culture - Pending Laboratory Tests Range/Units 02/23/22 02/23/22 02/23/22 16:20 16:20 16:20 WBC (4.4-10.8) 10^3/uL RBC (3.93-5.22) 10^6/uL Hgb (11.2-15.7) g/dL Hct (36.0-46.0) % MCV (80-95) fL MCH (27.0-33.0) pg MCHC (32.0-36.0) % RDW (11.7-14.6) % Plt Count (130-400) 10^3/uL MPV (8.0-11.0) fL Immature Gran % Neutrophils % Lymphocytes % Monocytes % Eosinophils % Basophils % Nucleated RBC % (0.0-0.3) % Absolute Neutrophils (1.2-6.7) 10^3/uL Absolute Lymphocytes (1.2-3.4) 10^3/uL Absolute Monocytes (0.1-0.8) 10^3/uL Absolute Eosinophils (0.0-0.7) 10^3/uL Absolute Basophils (0.0-0.2) 10^3/uL RBC Morphology VBG pH (7.31-7.41) 7.30 L VBG pCO2 (41-51) mmHg 47 VBG pO2 mmHg 27 VBG HCO3 (23-28) mmol/L 23 VBG Total CO2 (24-29) mmol/L 22 L VBG O2 Saturation % 40 VBG Base Excess (-2-3) mmol/L -3 L VBG Lactate (0.6-1.4) mmol/L 2.3 H* Sodium (136-145) mmol/L Potassium (3.5-5.1) mmol/L Chloride (98-107) mmol/L Carbon Dioxide (21.0-32.0) mmol/L Anion Gap (3-11) mmol/L BUN (7-18) mg/dL Creatinine (0.55-1.02) mg/dL Estimated GFR/1.73 m2 (mL/min/1.73m2) Glucose (74-106) mg/dL Calcium (8.5-10.1) mg/dL Total Bilirubin (0.2-1.0) mg/dL AST (15-37) U/L ALT (14-59) U/L Alkaline Phosphatase (46-116) U/L Troponin I (<or=60) ng/L 101 H* NT-Pro-B Natriuret Pep (<300) pg/mL 1716 H Total Protein (6.4-8.2) g/dL Albumin (3.4-5.0) g/dL COVID-19 Source SARS-CoV-2 (PCR) (Negative) Influenza Type A (PCR) (Negative) Influenza Type B (PCR) (Negative) RSV (PCR) (Negative) Range/Units 02/23/22 02/23/22 02/23/22 16:20 16:20 17:00 WBC (4.4-10.8) 10^3/uL 34.40 H* RBC (3.93-5.22) 10^6/uL 3.95 Hgb (11.2-15.7) g/dL 12.4 Hct (36.0-46.0) % 37.8 MCV (80-95) fL 96 H MCH (27.0-33.0) pg 31.4 MCHC (32.0-36.0) % 32.8 RDW (11.7-14.6) % 14.6 Plt Count (130-400) 10^3/uL 255 MPV (8.0-11.0) fL 9.4 Immature Gran % 1.5 Neutrophils % 94.7 Lymphocytes % 1.4 Monocytes % 2.4 Eosinophils % 0.0 Basophils % 0.0 Nucleated RBC % (0.0-0.3) % 0.0 Absolute Neutrophils (1.2-6.7) 10^3/uL 32.58 H Absolute Lymphocytes (1.2-3.4) 10^3/uL 0.48 L Absolute Monocytes (0.1-0.8) 10^3/uL 0.83 H Absolute Eosinophils (0.0-0.7) 10^3/uL 0.00 Absolute Basophils (0.0-0.2) 10^3/uL 0.00 RBC Morphology Normal VBG pH (7.31-7.41) VBG pCO2 (41-51) mmHg VBG pO2 mmHg VBG HCO3 (23-28) mmol/L VBG Total CO2 (24-29) mmol/L VBG O2 Saturation % VBG Base Excess (-2-3) mmol/L VBG Lactate (0.6-1.4) mmol/L Sodium (136-145) mmol/L 138 Potassium (3.5-5.1) mmol/L 3.8 Chloride (98-107) mmol/L 100 Carbon Dioxide (21.0-32.0) mmol/L 24.5 Anion Gap (3-11) mmol/L 13.5 H BUN (7-18) mg/dL 93 H* Creatinine (0.55-1.02) mg/dL 2.2 H Estimated GFR/1.73 m2 (mL/min/1.73m2) 22.00 Glucose (74-106) mg/dL 118 H Calcium (8.5-10.1) mg/dL 9.1 Total Bilirubin (0.2-1.0) mg/dL 0.3 AST (15-37) U/L 39 H ALT (14-59) U/L 22 Alkaline Phosphatase (46-116) U/L 176 H Troponin I (<or=60) ng/L NT-Pro-B Natriuret Pep (<300) pg/mL Total Protein (6.4-8.2) g/dL 6.7 Albumin (3.4-5.0) g/dL 1.9 L COVID-19 Source Not Applicable SARS-CoV-2 (PCR) (Negative) Negative Influenza Type A (PCR) (Negative) Negative Influenza Type B (PCR) (Negative) Negative RSV (PCR) (Negative) Negative Range/Units 02/23/22 18:30 WBC (4.4-10.8) 10^3/uL RBC (3.93-5.22) 10^6/uL Hgb (11.2-15.7) g/dL Hct (36.0-46.0) % MCV (80-95) fL MCH (27.0-33.0) pg MCHC (32.0-36.0) % RDW (11.7-14.6) % Plt Count (130-400) 10^3/uL MPV (8.0-11.0) fL Immature Gran % Neutrophils % Lymphocytes % Monocytes % Eosinophils % Basophils % Nucleated RBC % (0.0-0.3) % Absolute Neutrophils (1.2-6.7) 10^3/uL Absolute Lymphocytes (1.2-3.4) 10^3/uL Absolute Monocytes (0.1-0.8) 10^3/uL Absolute Eosinophils (0.0-0.7) 10^3/uL Absolute Basophils (0.0-0.2) 10^3/uL RBC Morphology VBG pH (7.31-7.41) VBG pCO2 (41-51) mmHg VBG pO2 mmHg VBG HCO3 (23-28) mmol/L VBG Total CO2 (24-29) mmol/L VBG O2 Saturation % VBG Base Excess (-2-3) mmol/L VBG Lactate (0.6-1.4) mmol/L Sodium (136-145) mmol/L Potassium (3.5-5.1) mmol/L Chloride (98-107) mmol/L Carbon Dioxide (21.0-32.0) mmol/L Anion Gap (3-11) mmol/L BUN (7-18) mg/dL Creatinine (0.55-1.02) mg/dL Estimated GFR/1.73 m2 (mL/min/1.73m2) Glucose (74-106) mg/dL Calcium (8.5-10.1) mg/dL Total Bilirubin (0.2-1.0) mg/dL AST (15-37) U/L ALT (14-59) U/L Alkaline Phosphatase (46-116) U/L Troponin I (<or=60) ng/L 102 H* NT-Pro-B Natriuret Pep (<300) pg/mL Total Protein (6.4-8.2) g/dL Albumin (3.4-5.0) g/dL COVID-19 Source SARS-CoV-2 (PCR) (Negative) Influenza Type A (PCR) (Negative) Influenza Type B (PCR) (Negative) RSV (PCR) (Negative) Critical Care Time Critical Care Time Critical Care Time: Yes Total Critical Care Time: 40 Attestation: IV antibiotics, telemetry monitoring, oxygen supplementation, admission to the hospital, interpretation of diagnostic x-ray, diagnostic labs, IV fluid resuscitation
[2022-02-23] MEDS: DOXYCYCLINE 100 MG in Normal Saline 100 ML IVPB (20:19)
[2022-02-23 20:28] LABS: Bilirubin Negative (Negative); Blood Small (Negative); Clarity Cloudy (Clear); Glucose Negative (Negative); Ketones Negative (Negative); Leukocyte Esterase Moderate (Negative); Nitrite Positive (Negative); Urobilinogen 0.2 EU/dL (Up TO 0.2); pH 5.5 (5-8)
[2022-02-23 20:31] LABS: Bacteria Moderate HPF (Negative); C & S Indicated? Yes; Casts Negative LPF (Negative); Crystals Negative HPF (Negative); Epithelial Cells Few HPF (Negative); Mucus Negative (Negative)
--- NOTE | 2022-02-23 20:35 | HPE_ITS ---
Date of service: 02/23/22 Time of Service: 20:35 Assessment and Plan Assessment and plan (1) SOB (shortness of breath): Status: Acute Assessment and plan: Worsening shortness of breath from her baseline may be related to an underlying pneumonia. She is also moderately dehydrated from poor p.o. intake which could be contributing to her overall weakness and shortness of breath. We will have her on gentle IV hydration with lactated Ringer's at 80 cc/h. (2) Hip pain: Status: Chronic Assessment and plan: She has chronic hip pain for which she takes tramadol and oxycodone. We will continue these as prescribed. (3) Pulmonary fibrosis: Status: Acute Assessment and plan: She appears to have progressive pulmonary fibrosis. She is on CellCept and Ofev. She is also on inhaled beta adrenergic's. We will continue her pulse dose of prednisone as she does not appear to have significant wheezing at this point. That was due to stop On 02/26/2022. (4) Pneumonia: Status: Acute Assessment and plan: She had a portable chest x-ray in the emergency room which was markedly overpenetrated. There are markings consistent with her pulmonary fibrosis. The V rad reading states there are bilateral lower lobe infiltrates which I do not see. Given she presents with increasing shortness of breath and a significant leukocytosis, no fever, she is being empirically treated with ceftriaxone and doxycycline. She does not have a significant cough or sputum production. Will trend her CBC and vitals. This appears to be more of a leukemoid reaction perhaps due to the recent corticosteroids. Is not clear to me that she has significant infiltrates. She is high risk for infection because of the CellCept. Qualifiers: Pneumonia type: due to unspecified organism Laterality: right Lung location: lower lobe of lung Qualified Code(s): J18.9 - Pneumonia, unspecified organism History of Present Illness History of Present Illness Chief Complaint: Shortness of breath/pneumonia Narrative: This is a 71-year-old woman with underlying pulmonary fibrosis times the past 2 years. She is maintained on CellCept and Ofev. On 02/21/2022 she developed increasing shortness of breath. She contacted her PCP and was started on prednisone and home O2 was ordered at 2 L/min. She has continued to feel weak and more short of breath than usual. She has not been able to take p.o. well. Her family urged her to go to the emergency room. In the emergency room she was in a fair amount of distress on presentation. She responded to updrafts, IV fluids, IV Solu-Medrol. She is now satting 98% on 2 L and feels much better. She is being admitted for observation. Review of Systems Narrative: Patient has baseline shortness of breath from her pulmonary fibrosis but it was considerably worse as of 02/21/2022. She has not had fevers. She has no symptomatology consistent with COVID. She has not been having chest pain. She has not been able to eat or drink because of her shortness of breath and feeling weak. She describes not being able to even stand. Patient used to weigh over 400 pounds prior to gastric bypass. She states she is lost 100 pounds recently. She is on Megace for appetite stimulation. She has chronic hip pain and takes tramadol and nighttime oxycodone. PFSH All Active Problems (Updated 02/23/22 @ 20:44 by Billy Acosta MD) Pneumonia (Acute) Bilateral lower lobe Pulmonary fibrosis (Acute) Patient had previous work-up by Dr. Ferrara in [facility] in March 2018. Patient reports that her PFTs did not show underlying COPD, patient has a follow-up with Dr. Giron in February 16, 2019 F/U with with Dr. Woodard. Has supplemental O2 when needed (1L) Hip pain (Chronic) SOB (shortness of breath) (Acute) Medical History (Updated 02/23/22 @ 20:44 by Billy Acosta MD) Acute UTI Arthritis of left wrist Calcium ureterolithiasis Chronic back pain Essential tremor Fibromyalgia Hypertension Osteoarthritis Pre-diabetes Renal stones Stress at home Stroke Stroke 11/24/21-pt. stated it was an acute stroke, f/u Dr. Anderosn and stated she no longer needed to follow up with her, she takes a baby aspirin 81mg everyday for prevention Surgical History (Updated 02/23/22 @ 20:44 by Billy Acosta MD) Hx of cataract surgery Hx of ultrasound guided needle biopsy of lung S/P cholecystectomy S/P gastric bypass S/P hernia repair S/P hysterectomy Family History Mother Stroke Maternal Grandmother Stroke Maternal Uncle Stroke Social History Smoking/Tobacco Use Status: Never Second Hand Exposure: Yes (Secondary to her parents as well as ) Smoking risk assessment performed?: Yes Alcohol Intake: never Drug use: Never Substance use type: does not use Household members: family and children Housing: other Details: moble home Number of Children: 5 number of grandchildren: 8 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 Pets and animals: Yes Pets and animals: dog(s) Current gender identity: female What is your relationship status?: Panel score (0-1 are the most socially isolated patients): 0 What type of physical activity do you participate in: walking Frequency: daily Seatbelt use: always Do you feel safe at home: Yes Do you feel safe in your relationship?: Yes History History 4 Para Hx # Term Pregnancies 4 Multiple births Hx # Pregnancies Ectopic pregnancies AB induced Hx Number of Living Children AB spontaneous Meds Allergies and Home Medications Allergies Allergy/AdvReac Type Severity Reaction Status Date / Time Sulfa (Sulfonamide Allergy Severe Anaphylaxis Unverified 02/23/22 16:19 Antibiotics) levofloxacin Allergy Intermediate Other (See Unverified 02/23/22 16:19 Comment) Home Medications Medication Instructions Recorded Confirmed Type ipratropium 0.5 mg-albuterol 3 mg 3 ml UPD Q4H PRN PRN shortness of 12/25/18 02/23/22 Rx (2.5 mg base)/3 mL nebulization breath #180 mL soln mycophenolate mofetil 500 mg tablet 1,000 mg PO BID 12/14/19 12/31/21 History nintedanib 100 mg capsule 150 mg PO BID 12/14/19 02/23/22 History albuterol sulfate 90 mcg/actuation 2 puff inhalation Q4H PRN PRN 11/24/20 12/31/21 History aerosol inhaler aspirin 81 mg tablet,delayed 81 mg PO DAILY #30 tabs 11/24/20 12/31/21 Rx release benzonatate 100 mg capsule 100 mg PO TID 11/24/20 12/31/21 History fluticasone propionate 50 2 spray intranasal DAILY 11/24/20 12/31/21 History mcg/actuation nasal spray,suspension megestrol 625 mg/5 mL (125 mg/mL) 5 ml PO DAILY 11/24/20 12/31/21 History oral suspension oxycodone 5 mg tablet 5 mg PO HS 11/24/20 02/23/22 History tramadol 50 mg tablet 50 mg PO 6XD PRN 11/24/20 02/23/22 History cyanocobalamin (vitamin B-12) 1,000 mcg PO DAILY 01/11/21 12/31/21 History 1,000 mcg tablet (Vitamin B-12) atorvastatin 10 mg tablet 10 mg PO QHS #90 tabs 01/31/21 12/31/21 Rx losartan 50 mg-hydrochlorothiazide 1 tab PO DAILY 03/01/21 02/23/22 History 12.5 mg tablet L. Acidophilus,Casei,Rhamnosus 1 cap PO DAILY #10 caps 08/29/21 12/31/21 Rx [Bio-K PLUS] albuterol sulfate 90 mcg/actuation 2 puff inhalation Q4H PRN 02/23/22 02/23/22 History aerosol inhaler prednisone 10 mg tablet 20 mg PO USEASDIRECTD 02/23/22 02/23/22 History Exam Narrative Exam Narrative: On exam she is alert and pleasant. She appears in no apparent distress. She is edentulous. Sitting upright she has fine crackles throughout both lower lung garcia consistent with her pulmonary fibrosis. No focal area of consolidation is apparent. Her heart sounds are strong and regular. Her abdomen shows redundant soft tissue minimal adipose tissue. She has a vertical scar just left of m idline in the upper abdomen consistent with her previous gastric bypass surgery. There is no abdominal tenderness no masses are palpable. She has a diaper on. The lower extremities show shiny white skin without any obvious lesions. She had no significant lower extremity edema. Lower extremities appear to be well perfused. She did have black beneath her fingernails. Neurologically there were no apparent focal deficits. Results Labs Result diagrams: 02/23/22 16:20 02/23/22 16:20 Labs: Laboratory Results - last 24 hr 02/23/22 02/23/22 02/23/22 16:20 16:20 16:20 WBC RBC Hgb Hct MCV MCH MCHC RDW Plt Count MPV Immature Gran % Neutrophils % Lymphocytes % Monocytes % Eosinophils % Basophils % Nucleated RBC % Absolute Neutrophils Absolute Lymphocytes Absolute Monocytes Absolute Eosinophils Absolute Basophils RBC Morphology VBG pH 7.30 L VBG pCO2 47 VBG pO2 27 VBG HCO3 23 VBG Total CO2 22 L VBG O2 Saturation 40 VBG Base Excess -3 L VBG Lactate 2.3 H* Sodium Potassium Chloride Carbon Dioxide Anion Gap BUN Creatinine Estimated GFR/1.73 m2 Glucose Calcium Total Bilirubin AST ALT Alkaline Phosphatase Troponin I 101 H* NT-Pro-B Natriuret Pep 1716 H Total Protein Albumin Urine Color Urine Clarity Urine pH Ur Specific [place] Urine Protein Urine Ketones Urine Blood Urine Nitrite Urine Bilirubin Urine Urobilinogen Ur Leukocyte Esterase Urine RBC Urine WBC Ur Epithelial Cells Urine Crystals Urine Bacteria Urine Casts Urine Mucus Ur Culture Indicated? Urine Glucose COVID-19 Source SARS-CoV-2 (PCR) Influenza Type A (PCR) Influenza Type B (PCR) RSV (PCR) 02/23/22 02/23/22 02/23/22 16:20 16:20 17:00 WBC 34.40 H* RBC 3.95 Hgb 12.4 Hct 37.8 MCV 96 H MCH 31.4 MCHC 32.8 RDW 14.6 Plt Count 255 MPV 9.4 Immature Gran % 1.5 Neutrophils % 94.7 Lymphocytes % 1.4 Monocytes % 2.4 Eosinophils % 0.0 Basophils % 0.0 Nucleated RBC % 0.0 Absolute Neutrophils 32.58 H Absolute Lymphocytes 0.48 L Absolute Monocytes 0.83 H Absolute Eosinophils 0.00 Absolute Basophils 0.00 RBC Morphology Normal VBG pH VBG pCO2 VBG pO2 VBG HCO3 VBG Total CO2 VBG O2 Saturation VBG Base Excess VBG Lactate Sodium 138 Potassium 3.8 Chloride 100 Carbon Dioxide 24.5 Anion Gap 13.5 H BUN 93 H* Creatinine 2.2 H Estimated GFR/1.73 m2 22.00 Glucose 118 H Calcium 9.1 Total Bilirubin 0.3 AST 39 H ALT 22 Alkaline Phosphatase 176 H Troponin I NT-Pro-B Natriuret Pep Total Protein 6.7 Albumin 1.9 L Urine Color Urine Clarity Urine pH Ur Specific [place] Urine Protein Urine Ketones Urine Blood Urine Nitrite Urine Bilirubin Urine Urobilinogen Ur Leukocyte Esterase Urine RBC Urine WBC Ur Epithelial Cells Urine Crystals Urine Bacteria Urine Casts Urine Mucus Ur Culture Indicated? Urine Glucose COVID-19 Source Not Applicable SARS-CoV-2 (PCR) Negative Influenza Type A (PCR) Negative Influenza Type B (PCR) Negative RSV (PCR) Negative 02/23/22 02/23/22 18:30 20:10 WBC RBC Hgb Hct MCV MCH MCHC RDW Plt Count MPV Immature Gran % Neutrophils % Lymphocytes % Monocytes % Eosinophils % Basophils % Nucleated RBC % Absolute Neutrophils Absolute Lymphocytes Absolute Monocytes Absolute Eosinophils Absolute Basophils RBC Morphology VBG pH VBG pCO2 VBG pO2 VBG HCO3 VBG Total CO2 VBG O2 Saturation VBG Base Excess VBG Lactate Sodium Potassium Chloride Carbon Dioxide Anion Gap BUN Creatinine Estimated GFR/1.73 m2 Glucose Calcium Total Bilirubin AST ALT Alkaline Phosphatase Troponin I 102 H* NT-Pro-B Natriuret Pep Total Protein Albumin Urine Color Yellow Urine Clarity Cloudy Urine pH 5.5 Ur Specific [place] 1.020 Urine Protein 30 H Urine Ketones Negative Urine Blood Small H Urine Nitrite Positive H Urine Bilirubin Negative Urine Urobilinogen 0.2 Ur Leukocyte Esterase Moderate H Urine RBC 3-5 H Urine WBC 10-20 H Ur Epithelial Cells Few Urine Crystals Negative Urine Bacteria Moderate Urine Casts Negative Urine Mucus Negative Ur Culture Indicated? Yes Urine Glucose Negative COVID-19 Source SARS-CoV-2 (PCR) Influenza Type A (PCR) Influenza Type B (PCR) RSV (PCR) Last Vital Signs Temp 36.2 C L 02/23/22 16:03 Pulse 91 H 02/23/22 20:16 Resp 28 H 02/23/22 20:20 BP 99/61 L 02/23/22 20:16 Pulse Ox 98 02/23/22 20:20
[2022-02-23] MEDS: Enoxaparin 30 MG/0.3 ML SYR SC (21:51)
[2022-02-23] MEDS: oxyCODONE 5 MG TAB PO (21:51)
[2022-02-23] MEDS: Benzonatate 100 MG CAP PO (22:29)
[2022-02-23] MEDS: Lactated Ringers 1,000 ML 80 ML IV (22:29)
[2022-02-24] VITALS (10 sets, daily range): BP systolic 98–123; BP diastolic 56–74; PULSE 67–100; RESP 16–20; TEMP 36.1–36.6; O2SAT 91–100
[2022-02-24] MEDS: traMADol 50 MG TAB 100 MG PO ×2 (05:57→14:52)
[2022-02-24] MEDS: Doxycycline Hyclate 100 MG CAP PO ×2 (05:57→17:27)
[2022-02-24 07:22] LABS: Absolute Lymphocyte Count 0.26 10^3/uL (1.2-3.4); HCT 32.9 % (36.0-46.0); HGB 11.2 g/dL (11.2-15.7); Immature Grans % 0.8; MCH 31.9 pg (27.0-33.0); MCV 94 fL (80-95); MPV 9.5 fL (8.0-11.0); Monocytes % 1.8; Neutrophils % 96.4; Platelet Count 194 10^3/uL (130-400); RBC 3.51 10^6/uL (3.93-5.22); RDW 14.6 % (11.7-14.6); RDW-SD 50.7 fL
[2022-02-24 07:24] LABS: BUN 76 mg/dL (7-18); CREATININE 1.4 mg/dL (0.55-1.02); Calcium 8.4 mg/dL (8.5-10.1); Chloride 105 mmol/L (98-107); Estimated GFR 37.07 (mL/min/1.73m2); Glucose 122 mg/dL (74-106); Potassium 3.4 mmol/L (3.5-5.1); Sodium 142 mmol/L (136-145)
[2022-02-24 07:41] LABS: Absolute Monocyte Count 0.48 10^3/uL (0.1-0.8); Absolute Neutrophil Count 25.54 10^3/uL (1.2-6.7)
[2022-02-24 07:43] LABS: Lab Add On Test DONE
[2022-02-24] MEDS: Benzonatate 100 MG CAP PO ×3 (07:45→20:24)
[2022-02-24] MEDS: predniSONE 10 MG TAB 20 MG PO (07:45)
[2022-02-24 08:05] LABS: Diff Comment Agrees w/ Instrument; RBC Morphology Normal; WBC 26.49 10^3/uL (4.4-10.8)
[2022-02-24 09:02] LABS: Procalcitonin 8.4 ng/mL
--- NOTE | 2022-02-24 09:59 | NUR.NOTE ---
Nursing Note: At approximately 0950 on 02/24/22, this RN answered a call from the pt.'s daughter (on HIPAA). Pt.'s daughter updated regarding pt.'s mentation, pain level, head to toe assessment, plan of care, etc. Pt.'s daughter verbalized understanding and presented with a few questions that were answered. Pt.'s daughter then asking what room the pt. is in and about visiting hours/policy. Pt.'s daughter was informed what room the pt. is in and about visiting hours/policy. Pt.'s daughter verbalized understanding. RN will reassess as necessary.
[2022-02-24] MEDS: Lactated Ringers 1,000 ML 80 ML IV (10:59)
--- NOTE | 2022-02-24 11:32 | NUR.NOTE ---
Nursing Note: At approximately 1055 on 02/24/22, this RN answered a call from the pt.'s daughter Kala (on HIPAA). Pt.'s daughter was updated regarding pt.'s mentation, pain level, head to toe assessment, plan of care, etc. Pt.'s daughter explaining that she is worried about the pt.'s home care situation; per pt.'s daughter, pt. is cared for by some of her other children, and pt.'s daughter is worried that she isn't being well cared for at home and that the pt. should be in an assisted living facility, but the pt. doesn't want to be in an assisted living facility. RN informed pt.'s daughter that they would pass along this concern to the child care specialist and would have the child care specialist call her to discuss things further, including the possibility of home health nursing and aides, home healthy physical therapy, and home health occupational therapy. Pt.'s daughter stating that she would like to be called with any changes/updates regarding the pt. RN informed pt.'s daughter that they would make a note of that in the chart. Pt.'s daughter verbalized understanding and thanked the RN for their time. RN will reassess as necessary.
[2022-02-24] MEDS: Acetaminophen 325 MG TAB PO (13:18)
--- NOTE | 2022-02-24 13:32 | NUR.NOTE ---
Nursing Note: At approximately 1325 on 02/24/22, this RN answered another call from the pt.'s daughter, Dona (on HIPAA). Pt.'s daughter informed that the RN was unsure if the provider had been in to assess the pt. yet (RN hadn't happened to see the provider go in if they did; no provider progress note in the computer). Pt.'s daughter also informed that ROSIE stockings had been ordered and that acapella and incentive spirometer exercisers had been ordered. Pt.'s daughter also informed that as of this time, pt. wouldn't be getting discharged today (02/24/22). Pt.'s daughter verbalized understanding and presented with a few questions that were answered. Pt.'s daughter then stated, Ok, I'll call back for an update later. RN will reassess as necessary.
--- NOTE | 2022-02-24 13:49 | PDOC.CMIN ---
- If Service Date Differs Date of service: 02/24/22 Time of Service: 13:49 Care Management Initial Assess REASON FOR HOSPITALIZATION:: pneumonia PAST MEDICAL HISTORY/PAST SURGICAL HISTORY:: All Active Problems. Pneumonia (Acute). Bilateral lower lobe. Pulmonary fibrosis (Acute). Patient had previous work-up by Dr. Ferrara in [facility] in March 2018. Patient reports that her PFTs did not show underlying COPD, patient has a follow-up with Dr. Giron in February 16, 2019. F/U with with Dr. Woodard. Has supplemental O2 when needed (1L). Hip pain (Chronic). SOB (shortness of breath) (Acute). Medical History. Acute UTI. Arthritis of left wrist. Calcium ureterolithiasis. Chronic back pain. Essential tremor. Fibromyalgia. Hypertension. Osteoarthritis. Pre-diabetes. Renal stones. Stress at home. Stroke. Stroke. 11/24/21-pt. stated it was an acute stroke, f/u Dr. Anderson and stated she no longer needed to follow up with her, she takes a baby aspirin 81mg everyday for prevention. Surgical History. Hx of cataract surgery. Hx of ultrasound guided needle biopsy of lung. S/P cholecystectomy. S/P gastric bypass. S/P hernia repair. S/P hysterectomy PREVIOUS FUNCTIONAL STATUS/SOCIAL/FAMILY SUPPORTS:: Ashley lives in a mobile home in [place] [place] with her daughter Marimar. She has a total of 5 children - 3 girls and 2 boys. Ashley is independent at baseline and does all of her own shopping, housework and personal care and continues to drive. 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 Ashley is , having lost her to lung cancer about 12 years ago. CURRENT FUNCTIONAL STATUS:: Ashley was sitting up in her chair when NONI met with her. She stated that she is feeling better today. She reported that she is currently living with her son, his , and two of her daughters, and that they are supportive. NONI talked to Kala, her HCA, who reported that she doesn't feel that Ashley is living in good conditions, and she is not sure that her siblings are caring for her well. NONI explained that Ashley is able to make her own choices, and she is happy to live in her home with her children. She stated that they are all there to help her when she needs support, and feels that things are going well. Ashley will be evaluated by PT tomorrow, and she stated that she would consider short term rehab, if indicated. CM will continue to follow. ADVANCE DIRECTIVES:: Ashley states that she has Advanced Directives but that they are filed in [place], not [facility]. She identified her daughter Kala as her HCA. Has patient been provided with info about the portal/API?: Yes Did the patient sign up for the portal?: No CODE STATUS:: Full Code INSURANCE COVERAGE / FINANCIAL ISSUES:: Medicaid. Medicare CURRENT HOME/COMMUNITY SERVICES/EQUIPMENT:: None. PRIMARY CARE PHYSICIAN:: Rober Cho POTENTIAL DISCHARGE NEEDS:: Follow up with PCP and discharge plan of care PATIENT/FAMILY EDUCATION NEEDS:: Review of discharge instrutions, follow up plan, limitations and Ask Me Three. ANTICIPATED BARRIERS TO DISCHARGE:: none TRANSPORTATION:: via private vehicle with family PLAN:: Ashley will likely be discharged home with no new services. She will follow up with her community providers and discharge plan of care and transport with family. CM will continue to support Ashley and her family and assess for ongoing discharge needs. Children: Kala - HCA . Dona- . Melquiades - . Marimar - daughter Ashley lives with - . CM will continue to follow.
--- NOTE | 2022-02-24 14:45 | PGE_ITS ---
Date of Service Date of service: 02/24/22 Time of Service: 14:46 Assessment and Plan Assessment and plan (1) SOB (shortness of breath): Status: Acute Assessment and plan: Worsening shortness of breath from her baseline likely underlying pneumonia. She is also moderately dehydrated from poor p.o. intake which could be contributing to her overall weakness and shortness of breath. S/P IV hydration. Oral intake has improved so will stop IV fluids. Monitor creatinine. (2) Hip pain: Status: Chronic Assessment and plan: She has chronic hip pain for which she takes tramadol and oxycodone. We will continue these as prescribed. (3) Pulmonary fibrosis: Status: Acute Assessment and plan: She appears to have progressive pulmonary fibrosis. She is on CellCept and Ofev. She is also on inhaled beta adrenergic's. We will continue her pulse dose of prednisone as she does not appear to have significant wheezing at this point. That was due to stop On 02/26/2022. (4) Pneumonia: Status: Acute Assessment and plan: Initially unclear if PNA present, but with procalcitonin of 8.4 along with the elevated WBC count does have the diagnosis. Cont Rocephin and Doxycycline. Improved WBC count. Requiring less supplemental O2 to maintain saturations; now on 1.5L per NC. Qualifiers: Pneumonia type: due to unspecified organism Laterality: right Lung location: lower lobe of lung Qualified Code(s): J18.9 - Pneumonia, unspecified organism (5) Discharge planning issues: Status: Acute Assessment and plan: Will have PT evaluate to see if she can safely return home. Has several family memebers she lives with and she states they are very helpful. Subjective Subjective Patient reports: no new complaints and afebrile; denies nausea or vomiting Interval history since last seen: Continues to feel generally weak. Exam Narrative Exam Narrative: Gen. She appears in no apparent distress. She is edentulous. Pleasant and conversant. Lungs: fine crackles throughout both lower lung garcia consistent with her pulmonary fibrosis. No focal area of consolidation is apparent. CV: RRR, no murmur Abdomen with redundant soft tissue minimal adipose tissue. She has a vertical scar just left of midline in the upper abdomen consistent with her previous gastric bypass surgery. no tenderness no masses are palpable. She has a diaper on. Exts: No edema, calf pain. ROSIE hose in place. Objective Last Vital Signs Temp 36.6 C 02/24/22 11:48 Pulse 85 02/24/22 11:48 Resp 18 02/24/22 11:48 BP 116/65 02/24/22 11:48 Pulse Ox 95 02/24/22 11:48 Laboratory Results - last 24 hr 02/23/22 02/23/22 02/23/22 16:20 16:20 16:20 WBC RBC Hgb Hct MCV MCH MCHC RDW Plt Count MPV Immature Gran % Neutrophils % Lymphocytes % Monocytes % Eosinophils % Basophils % Nucleated RBC % Absolute Neutrophils Absolute Lymphocytes Absolute Monocytes Absolute Eosinophils Absolute Basophils RBC Morphology VBG pH 7.30 L VBG pCO2 47 VBG pO2 27 VBG HCO3 23 VBG Total CO2 22 L VBG O2 Saturation 40 VBG Base Excess -3 L VBG Lactate 2.3 H* Sodium Potassium Chloride Carbon Dioxide Anion Gap BUN Creatinine Estimated GFR/1.73 m2 Glucose Calcium Total Bilirubin AST ALT Alkaline Phosphatase Troponin I 101 H* NT-Pro-B Natriuret Pep 1716 H Total Protein Albumin Procalcitonin Urine Color Urine Clarity Urine pH Ur Specific [place] Urine Protein Urine Ketones Urine Blood Urine Nitrite Urine Bilirubin Urine Urobilinogen Ur Leukocyte Esterase Urine RBC Urine WBC Ur Epithelial Cells Urine Crystals Urine Bacteria Urine Casts Urine Mucus Ur Culture Indicated? Urine Glucose COVID-19 Source SARS-CoV-2 (PCR) Influenza Type A (PCR) Influenza Type B (PCR) RSV (PCR) Add-On Test Request 02/23/22 02/23/22 02/23/22 16:20 16:20 17:00 WBC 34.40 H* RBC 3.95 Hgb 12.4 Hct 37.8 MCV 96 H MCH 31.4 MCHC 32.8 RDW 14.6 Plt Count 255 MPV 9.4 Immature Gran % 1.5 Neutrophils % 94.7 Lymphocytes % 1.4 Monocytes % 2.4 Eosinophils % 0.0 Basophils % 0.0 Nucleated RBC % 0.0 Absolute Neutrophils 32.58 H Absolute Lymphocytes 0.48 L Absolute Monocytes 0.83 H Absolute Eosinophils 0.00 Absolute Basophils 0.00 RBC Morphology Normal VBG pH VBG pCO2 VBG pO2 VBG HCO3 VBG Total CO2 VBG O2 Saturation VBG Base Excess VBG Lactate Sodium 138 Potassium 3.8 Chloride 100 Carbon Dioxide 24.5 Anion Gap 13.5 H BUN 93 H* Creatinine 2.2 H Estimated GFR/1.73 m2 22.00 Glucose 118 H Calcium 9.1 Total Bilirubin 0.3 AST 39 H ALT 22 Alkaline Phosphatase 176 H Troponin I NT-Pro-B Natriuret Pep Total Protein 6.7 Albumin 1.9 L Procalcitonin Urine Color Urine Clarity Urine pH Ur Specific [place] Urine Protein Urine Ketones Urine Blood Urine Nitrite Urine Bilirubin Urine Urobilinogen Ur Leukocyte Esterase Urine RBC Urine WBC Ur Epithelial Cells Urine Crystals Urine Bacteria Urine Casts Urine Mucus Ur Culture Indicated? Urine Glucose COVID-19 Source Not Applicable SARS-CoV-2 (PCR) Negative Influenza Type A (PCR) Negative Influenza Type B (PCR) Negative RSV (PCR) Negative Add-On Test Request 02/23/22 02/23/22 02/24/22 18:30 20:10 06:50 WBC RBC Hgb Hct MCV MCH MCHC RDW Plt Count MPV Immature Gran % Neutrophils % Lymphocytes % Monocytes % Eosinophils % Basophils % Nucleated RBC % Absolute Neutrophils Absolute Lymphocytes Absolute Monocytes Absolute Eosinophils Absolute Basophils RBC Morphology VBG pH VBG pCO2 VBG pO2 VBG HCO3 VBG Total CO2 VBG O2 Saturation VBG Base Excess VBG Lactate Sodium 142 Potassium 3.4 L Chloride 105 Carbon Dioxide 24.0 Anion Gap 13.0 H BUN 76 H Creatinine 1.4 H Estimated GFR/1.73 m2 37.07 Glucose 122 H Calcium 8.4 L Total Bilirubin AST ALT Alkaline Phosphatase Troponin I 102 H* NT-Pro-B Natriuret Pep Total Protein Albumin Procalcitonin Urine Color Yellow Urine Clarity Cloudy Urine pH 5.5 Ur Specific [place] 1.020 Urine Protein 30 H Urine Ketones Negative Urine Blood Small H Urine Nitrite Positive H Urine Bilirubin Negative Urine Urobilinogen 0.2 Ur Leukocyte Esterase Moderate H Urine RBC 3-5 H Urine WBC 10-20 H Ur Epithelial Cells Few Urine Crystals Negative Urine Bacteria Moderate Urine Casts Negative Urine Mucus Negative Ur Culture Indicated? Yes Urine Glucose Negative COVID-19 Source SARS-CoV-2 (PCR) Influenza Type A (PCR) Influenza Type B (PCR) RSV (PCR) Add-On Test Request 02/24/22 02/24/22 02/24/22 06:50 06:50 06:50 WBC 26.49 H* RBC 3.51 L Hgb 11.2 Hct 32.9 L MCV 94 MCH 31.9 MCHC 34.0 RDW 14.6 Plt Count 194 MPV 9.5 Immature Gran % 0.8 Neutrophils % 96.4 Lymphocytes % 1.0 Monocytes % 1.8 Eosinophils % 0.0 Basophils % 0.0 Nucleated RBC % 0.0 Absolute Neutrophils 25.54 H Absolute Lymphocytes 0.26 L Absolute Monocytes 0.48 Absolute Eosinophils 0.00 Absolute Basophils 0.00 RBC Morphology Normal VBG pH VBG pCO2 VBG pO2 VBG HCO3 VBG Total CO2 VBG O2 Saturation VBG Base Excess VBG Lactate Sodium Potassium Chloride Carbon Dioxide Anion Gap BUN Creatinine Estimated GFR/1.73 m2 Glucose Calcium Total Bilirubin AST ALT Alkaline Phosphatase Troponin I NT-Pro-B Natriuret Pep Total Protein Albumin Procalcitonin 8.4 Urine Color Urine Clarity Urine pH Ur Specific [place] Urine Protein Urine Ketones Urine Blood Urine Nitrite Urine Bilirubin Urine Urobilinogen Ur Leukocyte Esterase Urine RBC Urine WBC Ur Epithelial Cells Urine Crystals Urine Bacteria Urine Casts Urine Mucus Ur Culture Indicated? Urine Glucose COVID-19 Source SARS-CoV-2 (PCR) Influenza Type A (PCR) Influenza Type B (PCR) RSV (PCR) Add-On Test Request DONE
[2022-02-24] MEDS: Normal Saline Flush 10 ML SYR (14:46)
[2022-02-24] MEDS: cefTRIAXone 1 GM/50 ML BAG IVPB (16:07)
[2022-02-24] MEDS: Normal Saline 500 ML 100 ML IV (16:07)
--- NOTE | 2022-02-24 18:26 | NUR.NOTE ---
Nursing Note: At approximately 1820 on 02/24/22, this RN answered another call from the pt.'s daughter, Dona (on HIPAA). Pt.'s daughter was wondering what, if anything, has changed with the pt. or the pt.'s plan of care. Pt.'s daughter was again updated regarding pt.'s mentation, VS, pain level and pain management techniques, head to toe assessment, plan of care (continuation of antibiotics - oral and IV; continuation of acapella and IS; continuation of weaning off of oxygen), etc. Pt.'s daughter verbalized understanding and presented with a few questions that were answered. Pt.'s daughter stated that she would be calling again tomorrow (02/25/22) after 1100 (since pt.'s daughter was informed that this is when morning meeting happens), to check in and see how her mother is doing and see what the updated plan of care is. RN will reassess as necessary.
[2022-02-24] MEDS: oxyCODONE 5 MG TAB PO (21:29)
[2022-02-24] MEDS: Enoxaparin 30 MG/0.3 ML SYR SC (21:30)
[2022-02-25] VITALS (9 sets, daily range): BP systolic 106–138; BP diastolic 58–86; PULSE 80–88; RESP 14–26; TEMP 36.1–37; O2SAT 91–100
[2022-02-25] MEDS: Doxycycline Hyclate 100 MG CAP PO ×2 (05:25→18:37)
[2022-02-25 07:23] LABS: Abs Immature Grans 0.17 10^3/uL (0.0-0.06); Absolute Basophil Count 0.06 10^3/uL (0.0-0.2); Absolute Lymphocyte Count 0.56 10^3/uL (1.2-3.4); Basophils % 0.3; HCT 34.2 % (36.0-46.0); HGB 11.5 g/dL (11.2-15.7); Immature Grans % 0.9; Lymphocytes % 2.8; MCH 31.9 pg (27.0-33.0); MCHC 33.6 % (32.0-36.0); MCV 95 fL (80-95); MPV 10.1 fL (8.0-11.0); Monocytes % 2.5; Neutrophils % 93.5; Platelet Count 165 10^3/uL (130-400); RBC 3.61 10^6/uL (3.93-5.22); RDW 14.6 % (11.7-14.6); RDW-SD 51.1 fL; WBC 19.99 10^3/uL (4.4-10.8)
[2022-02-25 07:25] LABS: Absolute Neutrophil Count 18.69 10^3/uL (1.2-6.7)
[2022-02-25 08:03] LABS: Anion Gap 12.9 mmol/L (3-11); BUN 67 mg/dL (7-18); CO2 23.1 mmol/L (21.0-32.0); CREATININE 1.2 mg/dL (0.55-1.02); Calcium 8.9 mg/dL (8.5-10.1); Chloride 105 mmol/L (98-107); Estimated GFR 44.29 (mL/min/1.73m2); Glucose 97 mg/dL (74-106); Potassium 3.4 mmol/L (3.5-5.1); Sodium 141 mmol/L (136-145)
[2022-02-25] MEDS: predniSONE 10 MG TAB 20 MG PO (08:35)
[2022-02-25] MEDS: Benzonatate 100 MG CAP PO ×3 (08:35→21:16)
[2022-02-25] MEDS: Normal Saline Flush 10 ML SYR IVP ×3 (08:35→21:17)
--- NOTE | 2022-02-25 10:31 | PT.INIE ---
Date of service: 02/25/22 Time of Service: 10:31 PT Notes Visit Reasons: Pneumonia Physical Therapy Inpatient Initial Evaluation Date: 02/25/2022 Referring Doctor: Lloyd Law, and PT Orders: PT CONSULT: Eval/Treat Precautions: Fall. Standard. Activity as tolerated. Patient Profile/Admitting Diagnosis: Ashley is a 71-year-old female who presented to the ED on 02/25/2022 due to weakness, difficulty with ambulation, and shortness of breath. Patient is diagnosed with chronic pulmonary fibrosis, pneumonia, chronic hip pain, and shortness of breath. PMHX: All Active Problems?(Updated 02/23/22 @ 20:44 by Billy Acosta MD) Pneumonia (Acute) Bilateral lower lobePulmonary fibrosis (Acute) Patient had previous work-up by Dr. Ferrara in [facility] in March 2018.? Patient reports that her PFTs did not show underlying COPD, patient has a follow-up with Dr. Giron in February 16, 2019. F/U with with Dr. Woodard. Has supplemental O2 when needed (1L)Hip pain (Chronic) SOB (shortness of breath) (Acute) Medical History?(Updated 02/23/22 @ 20:44 by Billy Acosta MD) Acute UTI Arthritis of left wrist Calcium ureterolithiasis Chronic back pain Essential tremor Fibromyalgia Hypertension Osteoarthritis Pre-diabetes Renal stones Stress at home Stroke Stroke 11/24/21-pt. stated it was an acute stroke, f/u Dr. Anderson and stated she no longer needed to follow up with her, she takes a baby aspirin 81mg everyday for prevention Surgical History?(Updated 02/23/22 @ 20:44 by Billy Acosta MD) Hx of cataract surgery Hx of ultrasound guided needle biopsy of lung S/P cholecystectomy S/P gastric bypass S/P hernia repair S/P hysterectomy Social History/Home Situation: Lives with 2 adult kids who are her full-time caregivers. Has 3 steps to enter. She no longer drives. She uses a FWW with all mobility ADLs with stand by assist of one. 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 Equipment Owned/DME: FWW, BSC Subjective: Complains of being tired that she could not see straight. Could not keep eyes open. Agreeable to trying out walking. Denies headache, chest pain, and lightheadedness. Objective: General Observation: Seated on bedside recliner, legs elevated. Appears drowsy. On 2 L of oxyen/minute via NC. In NAD. Mental Status: Alert and oriented as to person, place, time, and purpose. Able to pay attention, focus, and respond appropriately. Pain: Denies Vital Signs: WNL as closley monitored by nursing. ROM: Right Upper Extremity: Shoulder Flexion WFL. Shoulder abduction WFL. Elbow flexion WFL. Wrist flexion WFL. Functional opening and closing of hand WFL. Left Upper Extremity: Shoulder Flexion WFL. Shoulder abduction WFL. Elbow flexion WFL. Wrist flexion WFL. Functional opening and closing of hand WFL. Right Lower Extremity: Hip flexion WFL. Hip abduction WFL. Knee flexion WFL. Ankle dorsiflexion WFL. Ankle plantarflexion WFL. Left Lower Extremity: Hip flexion WFL. Hip abduction WFL. Knee flexion WFL. Ankle dorsiflexion WFL. Ankle plantarflexion WFL. Strength: Right Upper Extremity: Shoulder flexors 4-/5. Shoulder abductors 4-/5. Elbow flexors 4-/5. Elbow extensors 4-/5. Propellant Assembler strong. Left Upper Extremity: Shoulder flexors 4-/5. Shoulder abductors 4-/5. Elbow flexors 4-/5. Elbow extensors 4-/5. Propellant Assembler strong. Right Lower Extremity: Hip flexors 4-/5. Hip abductors 4-/5. Knee flexors 4-/5. Knee extensors 4-/5. Ankle dorsiflexors 4-/5. Ankle plantarflexors 4-/5. Left Lower Extremity: Hip flexors 4-/5. Hip abductors 4-/5. Knee flexors 4-/5. Knee extensors 4-/5. Ankle dorsiflexors 4-/5. Ankle plantarflexors 4-/5. Bed Mobility/Transfers: Sit to stand stand by assist Stand to sit stand by assist Bed to reclining chair minimal assist Reclining chair to bed minimal assist Gait: Instructed patient with level surface ambulation of 15 feet requiring minimal assist. Nancie decreased. Step height decreased decreased. Step length. Moderate SOB that subsided with rest. NO LOB. Happy with how she walked as she initially thought she could not do anything. Balance: Static Sitting: Normal Dynamic Sitting: Good Static Standing: Fair fair Dynamic Standing: Special Tests: Mobility Limitations Standardized Measure [facility] AM-PAC 6 clicks Basic Mobility Inpatient Short Form: Raw Score: 18 CMS Score: 47% deficit 4-Stage Balance test: Does not feel safe to do any of the 4 positions in standing today due to fatigue and unsteadiness. Informed Consent/Education: Patient was instructed in purpose of PT consult and plan of care. Agreeable to proceed with established PT POC to achieve personal goals. Assessment: Patient presents with clinical signs and symptoms consistent with current/admitting diagnoses that have resulted to mobility limitations, gait instability, generalized weakness, and overall ADL decline as demonstrated by the following impairment level findings: 1. Decreased strength to B UE/LE major muscle groups 2. Impaired sitting/standing balance 3. Impaired activity tolerance 4. Shortness of breath Impairments are contributing to the following functional limitations: 1. Decline in bed mobility skills 2. Decline in transfer skills 3. Difficulty with ambulation without assistive device and physical assistance 4. Increased completion time for mobility ADL performance 5. Increased risk for falls 6. Difficulty with managing steps alone safely Patient is assessed as a 57787 moderate complexity based on the following: History: 71-year-old female with past medical history as indicated above Examination: Demonstrable impairment in strength, balance, and mobility level with underlying impairments and functional limitations as exhibited above as well as deficit score of 47% utilizing the [facility] Mobility Inpatient Short Form Presentation: Evolving Decision Makin moderate complexity Goals: Goals X1 week 1. Supine-Sit independent 2. Sit-Supine independent 3. Sit-Stand independent 4. Stand-Sit independent with FWW 5. Bed-Chair independent with FWW 6. Chair-Bed independent with FWW 7. Independent gait on level surface with use of FWW for at least 200 feet without report of pain nor dyspnea 8. Independent stair negotiation while holding onto rails for at least 3 steps without report of pain nor dyspnea 9. Independent with home exercise program 10. Good static and dynamic standing balance/tolerance Plan of Care/Treatment Plan: 1-2x/day, 7 days/week x 1 week. Plan of care has been reviewed with the ROSE GRADER providing the service under Physical Therapy direction. Initiate Physical Therapy intervention for pain management as needed, strengthening, bed mobility, transfers, gait, stairs, balance training, and use of assistive device. DISCHARGE RECOMMENDATIONS: [] Home with no services [] [] Home with services [specify] [] Home with outpatient PT [] [X] SNF for continued rehabilitation. Patient will benefit from group home facility placement for continued skilled physical therapy services in order to progress mobility level, strength, and balance in preparation for a safe discharge to home. [] Senior Living Care [] [] SNF versus LTC based on ability to participate and progress [] TREATMENT CODE/TIME: 32335 x 20 minutes, 63391 x 14 minutes beginning at 10:31 AM. Thank you for the opportunity to participate in the care of this patient. Negra Marrero PT, DPT, CLT [facility] [place], [place]
--- NOTE | 2022-02-25 10:42 | W.NUTCONSULT ---
Date of service: 02/25/22 Time of Service: 10:43 Nutritional Consult ASSESSMENT: 71 year old female admitted with dehydration, PNA with Pulmonary Fibrosis and on home 02. 12% weight loss noted in last 8 weeks. BMI 16.9 indicates underweight status. Following regular meal plan with excellent intake. Currently meeting 100% nutrient needs. At nutritional risk in view of 11 lbs weight loss in last 8 weeks most likely due to poor intake secondary to SOB. NUTRITIONAL DIAGNOSIS: Unintentionsl significant weight loss as evidenced by 12% weight loss in last 8 weeks. INTERVENTION: continue regular diet, supplement as needed MONITORING AND EVALUATION: po intake, labs, weight Time Spent in Nutritional Counseling and Treatment: 0
[2022-02-25] MEDS: traMADol 50 MG TAB 100 MG PO ×2 (13:22→21:15)
--- NOTE | 2022-02-25 14:56 | W.PM.PROGNOT ---
Date of Service Date of service: 02/25/22 Time of Service: 14:56 Assessment and Plan Assessment and plan (1) SOB (shortness of breath): Status: Acute Assessment and plan: Worsening shortness of breath from her baseline likely d/t underlying pneumonia. She is also moderately dehydrated from poor p.o. intake which could be contributing to her overall weakness and shortness of breath. S/P IV hydration. Oral intake has improved so stopped IV fluids. Creatinine improved from 2.2 to 1.2 (2) Hip pain: Status: Chronic Assessment and plan: She has chronic hip pain for which she takes tramadol and oxycodone. We will continue these as prescribed. (3) Pulmonary fibrosis: Status: Acute Assessment and plan: She appears to have progressive pulmonary fibrosis. Cont CellCept and Ofev. She is also on inhaled beta adrenergic's. We will continue her pulse dose of prednisone as she does not appear to have significant wheezing at this point. That was due to stop On 02/26/2022. (4) Pneumonia: Status: Acute Assessment and plan: Initially unclear if PNA present, but with procalcitonin of 8.4 along with the elevated WBC count does have the diagnosis. Cont Rocephin and Doxycycline. Improving WBC count. Requiring less supplemental O2 to maintain saturations; now on 1.5L per NC. Qualifiers: Pneumonia type: due to unspecified organism Laterality: right Lung location: lower lobe of lung Qualified Code(s): J18.9 - Pneumonia, unspecified organism (5) Discharge planning issues: Status: Acute Assessment and plan: Will have PT evaluate to see if she can safely return home. Has several family memebers she lives with and she states they are very helpful. She is agreeable to SNF. Subjective Subjective Patient reports: shortness of breath (with activity) and afebrile; denies nausea or vomiting Interval history since last seen: Feels fatigued Exam Narrative Exam Narrative: Gen. She appears in no apparent distress. Appears frail. She is edentulous. Pleasant and conversant. Lungs: fine crackles throughout both lower lung garcia consistent with her pulmonary fibrosis. No focal area of consolidation is apparent. CV: RRR, no murmur Abdomen with redundant soft tissue minimal adipose tissue. She has a vertical scar just left of midline in the upper abdomen consistent with her previous gastric bypass surgery. no tenderness no masses are palpable. She has a diaper on. Exts: No edema, calf pain. ROSIE hose in place. Objective Last Vital Signs Temp 36.5 C 02/25/22 11:48 Pulse 85 02/25/22 11:48 Resp 18 02/25/22 13:14 BP 122/80 02/25/22 11:48 Pulse Ox 94 02/25/22 11:48 Laboratory Results - last 24 hr 02/25/22 02/25/22 06:54 07:34 WBC 19.99 H RBC 3.61 L Hgb 11.5 Hct 34.2 L MCV 95 MCH 31.9 MCHC 33.6 RDW 14.6 Plt Count 165 MPV 10.1 Immature Gran % 0.9 Neutrophils % 93.5 Lymphocytes % 2.8 Monocytes % 2.5 Eosinophils % 0.0 Basophils % 0.3 Nucleated RBC % 0.0 Absolute Neutrophils 18.69 H Absolute Lymphocytes 0.56 L Absolute Monocytes 0.50 Absolute Eosinophils 0.00 Absolute Basophils 0.06 Sodium 141 Potassium 3.4 L Chloride 105 Carbon Dioxide 23.1 Anion Gap 12.9 H BUN 67 H Creatinine 1.2 H Estimated GFR/1.73 m2 44.29 Glucose 97 Calcium 8.9
--- NOTE | 2022-02-25 15:21 | PT.INTREAT ---
Date of service: 02/25/22 Time of Service: 14:58 PT Notes Visit Reasons: Pneumonia Inpatient Physical Therapy Treatment Note [facility] Date: 02/25/2022 PRECAUTIONS: Fall, activity as tolerated SUBJECTIVE: Ashley is pleasant and agreeable to participating in bed-level exercises. She reports that she is feeling tired and does not wish to get out of bed this afternoon. OBJECTIVE: PAIN: No c/o pain BED MOBILITY/TRANSFERS/GAIT: Declined due to fatigue THEREX: With patient in a supine position, she was instructed in a global strengthening program, to include: ankle pumps, quad sets, glute sets, heel slides, hip abduction, bridging and forward reaching with cueing for core engagement, which she tolerates with increased fatigue. ASSESSMENT: Patient demonstrates limited activity tolerance and global weakness. She demonstrates LE weakness with ther ex L>R a this time. PLAN: Continue with global strengthening and general conditioning for improved mobility and activity tolerance. TREATMENT CODE/TIME: 12 minutes; 32708 (14:58)
[2022-02-25] MEDS: cefTRIAXone 1 GM/50 ML BAG IVPB (16:33)
--- NOTE | 2022-02-25 16:35 | CMPROGNOTE_ITS ---
- If Service Date Differs Date of service: 02/25/22 Time of Service: 16:35 Care Management Progress Note S/O: Ashley was lying in bed when CM met with her. She stated that she worked with PT today, and she did not do as well as she had hoped. CM discussed discharge plans with Ashley, and she identified that she would benefit from short term rehab. She asked that referrals are sent to [facility]. CM will send these referrals. CM discussed Ashley's home life, and she stated that things are going well, and that her family is very supportive and taking good care of her. She reported that she is keeping in contact with her children, and updating them on her plan. CM will continue to follow. A: Ashley is a 71 year old female admitted to [facility] on 02/24/22 with pneumonia. P: Ashley will likely go to a SNF for short term rehab post hospitalization. Referrals were sent to [facility] and the [facility]. She will likely transport via w/c van, coordinated by [facility]. She will follow up with her PCP and discharge plan of care. CM will continue to follow.
[2022-02-25] MEDS: Acetaminophen 325 MG TAB PO (21:14)
[2022-02-25] MEDS: Docusate Sodium 100 MG CAP PO (21:16)
[2022-02-25] MEDS: oxyCODONE 5 MG TAB PO (21:16)
[2022-02-25] MEDS: Enoxaparin 30 MG/0.3 ML SYR SC (21:17)
[2022-02-26] VITALS (9 sets, daily range): BP systolic 137–158; BP diastolic 80–87; PULSE 70–90; RESP 16–24; TEMP 36.6–37.7; O2SAT 86–99
[2022-02-26] MEDS: Acetaminophen 325 MG TAB PO ×3 (02:09→20:13)
[2022-02-26] MEDS: guaiFENesin/CODEINE PHOSPHATE 10 ML CUP 5 ML PO ×3 (02:10→15:32)
[2022-02-26] MEDS: Doxycycline Hyclate 100 MG CAP PO ×2 (05:31→17:35)
[2022-02-26] MEDS: Normal Saline Flush 10 ML SYR IVP ×2 (09:43→14:33)
[2022-02-26] MEDS: predniSONE 10 MG TAB 20 MG PO (09:43)
[2022-02-26] MEDS: Benzonatate 100 MG CAP PO ×3 (09:44→20:14)
--- NOTE | 2022-02-26 10:34 | PDOC.CMPRO ---
- If Service Date Differs Date of service: 02/26/22 Time of Service: 10:34 Care Management Progress Note S/O: CM received bed offer from Wanda at the [facility]. Ashley was getting back into bed with PT, after her afternoon session when CM met with her. She accepted [facility] bed offer and reported her family was in support of this plan. CM spoke with Wanda of Admissions to accept bed offer and notified MD, who stated Ashley would likely be discharge ready tomorrow as her oxygen requirement has decreased. CM notified Palliative Care of anticipate discharge timing, as consult was anticipated for tomorrow afternoon. CM will continue to follow. A: Ashley is a 71 year old female admitted to [facility] on 02/24/22 with pneumonia. P: Anticipate with continued stability, Ashley will discharge to [facility], tomorrow. She will transport via w/c van (with padding provided in W/C per PT recommendation) coordinated by CM through [facility]. CM will continue to follow.
--- NOTE | 2022-02-26 11:17 | PT.INTREAT ---
Date of service: 02/26/22 Time of Service: 10:23 PT Notes Visit Reasons: Pneumonia Inpatient Physical Therapy Treatment Note [facility] Date: 02/26/2022 PRECAUTIONS: Fall, activity as tolerated SUBJECTIVE: Ashley is pleasant and agreeable to participating in bed-level exercises. She reports that she is feeling tired and does not wish to get out of bed this afternoon. OBJECTIVE: PAIN: No c/o pain BED MOBILITY/TRANSFERS: Supine-sit: SBA Sit-supine: Min A Sit-stand: CGA Stand-sit: CGA Bed-chair: CGA-SBA Chair-bed: CGA-SBA GAIT: Assistive device: FWW Weight bearing: Full Assist: CGA-SBA Distance: 15' + 8' Deviation: Short step height/length, SOB, shallow breathing, seated rest VITALS: SaO2: 94% on 1 L O2 with gait training THEREX: With patient in long sitting and seated positions, she was instructed in a LE strengthening program to include: ankle pumps, quad sets, glute sets, heel slides, hip abduction, hip flexion and LAQ, which she tolerates with increased fatigue. ASSESSMENT: Patient demonstrates limited activity tolerance and global weakness. She demonstrates LE weakness with ther ex L>R a this time. PLAN: Continue with global strengthening and general conditioning for improved mobility and activity tolerance. TREATMENT CODE/TIME: Session 1: 8 minutes; 25828 (10:23) Session 2: 21 minutes; [id number] (14:10)
[2022-02-26] MEDS: traMADol 50 MG TAB 100 MG PO (11:21)
--- NOTE | 2022-02-26 13:00 | W.PM.PROGNOT ---
Date of Service Date of service: 02/26/22 Time of Service: 13:00 Assessment and Plan Assessment and plan (1) SOB (shortness of breath): Status: Acute Assessment and plan: D/T PNA and chronic pulmonary fibrosis. Requiring less supplemental O2. S/P IV hydration. Oral intake has improved so stopped IV fluids. Creatinine improved from 2.2 to 1.2 (2) Hip pain: Status: Chronic Assessment and plan: She has chronic hip pain for which she takes tramadol and oxycodone. We will continue these as prescribed. (3) Pulmonary fibrosis: Status: Acute Assessment and plan: She appears to have progressive pulmonary fibrosis. Cont CellCept and Ofev. She is also on inhaled beta adrenergic's. We will continue her pulse dose of prednisone as she does not appear to have significant wheezing at this point. That was due to stop On 02/26/2022. (4) Pneumonia: Status: Acute Assessment and plan: Procalcitonin 8.4. Repeat after 48 hours pending. Cont Rocephin and Doxycycline. Improving WBC count. Requiring less supplemental O2 to maintain saturations; now on 1 L Qualifiers: Pneumonia type: due to unspecified organism Laterality: right Lung location: lower lobe of lung Qualified Code(s): J18.9 - Pneumonia, unspecified organism (5) Discharge planning issues: Status: Acute Assessment and plan: Will have PT evaluate to see if she can safely return home. Has several family memebers she lives with and she states they are very helpful. She is agreeable to SNF. Subjective Subjective Patient reports: no new complaints, tolerating a regular diet (Poor appetite), shortness of breath (with transfer from bed to chair) and afebrile; denies diarrhea, nausea or vomiting Exam Narrative Exam Narrative: Gen. Frail appearing, sitting in recliner. Genrally pale. NAD Lungs: fine crackles throughout both lower lung garcia consistent with her pulmonary fibrosis. No wheezes. CV: RRR, no murmur Abdomen Soft, NT, ND. Exts: No edema, calf pain. ROSIE hose in place. Objective Last Vital Signs Temp 37.6 C H 02/26/22 11:17 Pulse 90 02/26/22 11:17 Resp 24 02/26/22 11:17 BP 152/81 H 02/26/22 11:17 Pulse Ox 93 02/26/22 11:17
[2022-02-26] MEDS: Normal Saline 1,000 ML 80 ML IV (14:33)
[2022-02-26] MEDS: cefTRIAXone 1 GM/50 ML BAG IVPB (15:32)
--- NOTE | 2022-02-26 18:05 | PT.INDS ---
Date of service: 02/26/22 PT Notes Visit Reasons: Pneumonia, Pulmonary Fibrosis Physical Therapy Inpatient Discharge Summary Date: 02/26/2022 Dates of Service: 02/25/2022 through 02/26/2022 This is a clinical summary of care provided for the duration of dates listed above. No charge was made in the completion of this documentation. Referring Doctor: Lloyd Law, and PT Orders: PT CONSULT: Eval/Treat Precautions: Fall. Standard. Activity as tolerated. Patient Profile/Admitting Diagnosis:? Ashley is a 71-year-old female who presented to the ED on 02/25/2022 due to weakness, difficulty with ambulation, and shortness of breath.? Patient is diagnosed with chronic pulmonary fibrosis, pneumonia, chronic hip pain, and shortness of breath. PMHX: All Active Problems?(Updated 02/23/22 @ 20:44 by Billy Acosta MD) Pneumonia (Acute) Bilateral lower lobePulmonary fibrosis (Acute) Patient had previous work-up by Dr. Ferrara in [facility] in March 2018.? Patient reports that her PFTs did not show underlying COPD, patient has a follow-up with Dr. Giron in February 16, 2019. F/U with with Dr. Woodard. Has supplemental O2 when needed (1L)Hip pain (Chronic) SOB (shortness of breath) (Acute) Medical History?(Updated 02/23/22 @ 20:44 by Billy Acosta MD) Acute UTI Arthritis of left wrist Calcium ureterolithiasis Chronic back pain Essential tremor Fibromyalgia Hypertension Osteoarthritis Pre-diabetes Renal stones Stress at home Stroke Stroke 11/24/21-pt. stated it was an acute stroke, f/u Dr. Anderson and stated she no longer needed to follow up with her, she takes a baby aspirin 81mg everyday for prevention Surgical History?(Updated 02/23/22 @ 20:44 by Billy Acosta MD) Hx of cataract surgery Hx of ultrasound guided needle biopsy of lung S/P cholecystectomy S/P gastric bypass S/P hernia repair S/P hysterectomy Social History/Home Situation: Lives with 2 adult kids who are her full-time caregivers. Has 3 steps to enter.? She no longer drives. She uses a FWW with all mobility ADLs with stand by assist of one.? 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 Was not on oxygen supplementation HOME HEALTH PROVIDER. Equipment Owned/DME: FWW, BSC Subjective: NT. See most recent HOME HEALTH PROVIDER notes. Objective: General Observation: NT. See most recent HOME HEALTH PROVIDER notes. Mental Status: NT. See most recent HOME HEALTH PROVIDER notes. Pain: NT. See most recent HOME HEALTH PROVIDER notes. Vital Signs: NT. See most recent HOME HEALTH PROVIDER notes. ROM: Right Upper Extremity: ? Shoulder Flexion WFL. Shoulder abduction WFL. Elbow flexion WFL. Wrist flexion WFL. Functional opening and closing of hand WFL. Left Upper Extremity:? Shoulder Flexion WFL. Shoulder abduction WFL. Elbow flexion WFL. Wrist flexion WFL. Functional opening and closing of hand WFL. Right Lower Extremity: Hip flexion WFL. Hip abduction WFL. Knee flexion WFL. Ankle dorsiflexion WFL. Ankle plantarflexion WFL. Left Lower Extremity: Hip flexion WFL. Hip abduction WFL. Knee flexion WFL. Ankle dorsiflexion WFL. Ankle plantarflexion WFL. Strength: Right Upper Extremity: Shoulder flexors 4-/5. Shoulder abductors 4-/5. Elbow flexors 4-/5. Elbow extensors 4-/5. Production Support Supervisor strong. Left Upper Extremity: Shoulder flexors 4-/5. Shoulder abductors 4-/5. Elbow flexors 4-/5. Elbow extensors 4-/5. Production Support Supervisor strong. Right Lower Extremity: Hip flexors 4-/5. Hip abductors 4-/5. Knee flexors 4-/5. Knee extensors 4-/5. Ankle dorsiflexors 4-/5. Ankle plantarflexors 4-/5. Left Lower Extremity: Hip flexors 4-/5. Hip abductors 4-/5. Knee flexors 4-/5. Knee extensors 4-/5. Ankle dorsiflexors 4-/5. Ankle plantarflexors 4-/5. Bed Mobility/Transfers: Sit to stand stand by assist Stand to sit stand by assist Bed to reclining chair minimal assist Reclining chair to bed minimal assist Gait: Instructed patient with level surface ambulation of 15 feet requiring minimal assist. Nancie decreased. Step height decreased decreased. Step length. Moderate SOB that subsided with rest.? NO LOB.? Happy with how she walked as she initially thought she could not do anything. Balance: Static Sitting: Normal Dynamic Sitting:? Good Static Standing: Fair fair Dynamic Standing: NT. See most recent HOME HEALTH PROVIDER notes. Assessment: Patient presents with clinical signs and symptoms consistent with current/admitting diagnoses that have resulted to mobility limitations, gait instability, generalized weakness, and overall ADL decline as demonstrated by the following impairment level findings: 1.? Decreased strength to B UE/LE major muscle groups 2.? Impaired sitting/standing balance 3.? Impaired activity tolerance 4.? Shortness of breath Impairments are contributing to the following functional limitations: 1.? Decline in bed mobility skills 2.? Decline in transfer skills 3.? Difficulty with ambulation without assistive device and physical assistance 4.? Increased completion time for mobility ADL performance 5.? Increased risk for falls 6.? Difficulty with managing steps alone safely Goals: Goals X1 week 1. Supine-Sit independent NOT MET 2. Sit-Supine independent NOT MET 3. Sit-Stand independent NOT MET 4. Stand-Sit independent with FWW NOT MET 5. Bed-Chair independent with FWW NOT MET 6. Chair-Bed independent with FWW NOT MET 7. Independent gait on level surface with use of FWW for at least 200 feet without report of pain nor dyspnea NOT MET 8. Independent stair negotiation while holding onto? rails for at least 3 steps without report of pain nor dyspnea NOT MET 9. Independent with home exercise program NOT MET 10. Good static and dynamic standing balance/tolerance NOT MET DISCHARGE RECOMMENDATIONS: [] ? Home with no services [] [] ? Home with services [specify] [] ? Home with outpatient PT [] [X] ? SNF for continued rehabilitation.? Patient will benefit from prison facility placement for continued skilled physical therapy services in order to progress mobility level, strength, and balance in preparation for a safe discharge to home. [] ? [facility]idential [facility] [] [] ? SNF versus LTC based on ability to participate and progress [] TREATMENT CODE/TIME: [place] Thank you for the opportunity to participate in the care of this patient. Negra Marrero PT, DPT, CLT [facility] [place], [place]
[2022-02-26] MEDS: Enoxaparin 30 MG/0.3 ML SYR SC (21:24)
[2022-02-26] MEDS: oxyCODONE 5 MG TAB PO (21:24)
[2022-02-27 02:43] VITALS: BP 144/83; PULSE 85; RESP 16; TEMP 36.7; O2SAT 98
[2022-02-27] MEDS: Normal Saline 1,000 ML 80 ML IV (04:00)
[2022-02-27] MEDS: traMADol 50 MG TAB 100 MG PO (04:00)
[2022-02-27] MEDS: Doxycycline Hyclate 100 MG CAP PO (05:42)
[2022-02-27 06:49] LABS: Abs Immature Grans 0.11 10^3/uL (0.0-0.06); Absolute Eosinophil Count 0.03 10^3/uL (0.0-0.7); Basophils % 0.1; Eosinophils % 0.2; HGB 10.9 g/dL (11.2-15.7); Immature Grans % 0.7; Lymphocytes % 8.8; MCH 31.1 pg (27.0-33.0); MCHC 32.1 % (32.0-36.0); MCV 97 fL (80-95); MPV 10.2 fL (8.0-11.0); Monocytes % 2.4; Neutrophils % 87.8; Platelet Count 206 10^3/uL (130-400); RBC 3.51 10^6/uL (3.93-5.22); RDW 14.6 % (11.7-14.6); RDW-SD 52.3 fL; WBC 14.81 10^3/uL (4.4-10.8)
[2022-02-27 06:51] LABS: Absolute Basophil Count 0.01 10^3/uL (0.0-0.2); Absolute Monocyte Count 0.36 10^3/uL (0.1-0.8)
[2022-02-27 07:05] LABS: Anion Gap 10.5 mmol/L (3-11); BUN 28 mg/dL (7-18); CO2 27.5 mmol/L (21.0-32.0); CREATININE 0.6 mg/dL (0.55-1.02); Calcium 8.3 mg/dL (8.5-10.1); Chloride 108 mmol/L (98-107); Glucose 87 mg/dL (74-106); Sodium 146 mmol/L (136-145)
[2022-02-27 07:08] LABS: Potassium 2.8 mmol/L (3.5-5.1)
[2022-02-27 07:35] LABS: Procalcitonin 1.4 ng/mL
[2022-02-27] MEDS: predniSONE 10 MG TAB 20 MG PO (07:59)
[2022-02-27] MEDS: Acetaminophen 325 MG TAB PO (07:59)
[2022-02-27] MEDS: Benzonatate 100 MG CAP PO (07:59)
[2022-02-27 08:05] VITALS: BP 142/80; PULSE 78; RESP 20; TEMP 36.3; O2SAT 97
[2022-02-27 08:30] VITALS: O2SAT 99
[2022-02-27 08:41] VITALS: O2SAT 97
[2022-02-27] MEDS: Amoxicillin 875/Clav. 125 TAB PO (09:04)
[2022-02-27] MEDS: Normal Saline Flush 10 ML SYR IVP (09:05)
[2022-02-27] MEDS: POTASSIUM CHLORIDE 10 MEQ/100 ML BAG 100 MEQ IVPB ×3 (09:06→12:22)
--- NOTE | 2022-02-27 10:14 | DSE_ITS ---
Date of service: 02/27/22 Time of Service: 10:15 DS: Diagnosis Discharge Diagnosis (1) SOB (shortness of breath): Status: Acute (2) Hip pain: Status: Chronic (3) Pulmonary fibrosis: Status: Acute (4) Pneumonia: Status: Acute (5) Discharge planning issues: Status: Acute Discharge Plan Disposition Patient Disposition: SNF (LEVEL 1) [facility] Condition: Fair Discharge Details Reason For Visit: Pneumonia, Pulmonary Fibrosis Admit Date/Time: 02/24/22 14:40 Admit Provider: Billy cAosta Attending Provider: Billy Acosta Primary Care Provider: Rober [facility] Hospital Course: This is a 71-year-old woman with underlying pulmonary fibrosis times the past 2 years.? She is maintained on CellCept and Ofev.? On 02/21/2022 she developed increasing shortness of breath.? She contacted her PCP and was started on prednisone and home O2 was ordered at 2 L/min.? She has continued to feel weak and more short of breath than usual.? She has not been able to take p.o. well.? Her family urged her to go to the emergency room. In the emergency room she was in a fair amount of distress on presentation.? She responded to updrafts, IV fluids, IV Solu-Medrol.? Her O2 saturation improved to 98% on 2 L and she felt much better.? Emperic treatment with Rocephin and Doxycycline initiated. During the course of the hospitalization her WBC count improved from 34.4 to 14.81. Her supplemental O2 demands improved and she was on RA at rest at time of discharge. She worked with PT but continued to be significantly, globally weak. She was placed on Augmentin to continue for 8 more doses. Potassium and Magnesium replacement administered on day of discharge. F/U lab ordered. Home Meds and New Rx's Prescriptions: New ipratropium-albuterol 0.5 mg-3 mg(2.5 mg base)/3 mL Solution For Nebulization 3 ml UPD Q4H PRN PRNQty: 0 0RF amoxicillin-pot clavulanate 875-125 mg Tablet 1 tab PO BID Qty: 8 0RF polyethylene glycol 3350 17 gram Powder In Packet 17 g PO DAILY PRN PRN (Reason: Constipation) Qty: 0 0RF potassium chloride 20 mEq Tablet,Er Particles/Crystals 20 meq PO BID Qty: 0 0RF magnesium oxide 400 mg (241.3 mg magnesium) Tablet 800 mg PO BID@1100,2200 Qty: 0 0RF Continued atorvastatin 10 mg tablet 10 mg PO QHS Qty: 90 3RF mycophenolate mofetil 500 mg Tablet 1,000 mg PO BID benzonatate 100 mg capsule 100 mg PO TID PRN Label Comments: TAKE ONE CAPSULE BY MOUTH THREE TIMES A DAY megestrol 625 mg/5 mL (125 mg/mL) suspension 5 ml PO DAILY Label Comments: TAKE 5ML ORALLY EVERY 24 HOURS fluticasone propionate 50 mcg/actuation spray,suspension 2 spray INTRANASAL DAILY PRN Label Comments: INSTILL 2 SPRAYS INTO EACH NOSTRIL ONCE DAILY DIRECTED aspirin 81 mg Tablet,Delayed Release (Dr/Ec) 81 mg PO DAILY Qty: 30 0RF losartan-hydrochlorothiazide 50-12.5 mg tablet 1 tab PO DAILY Label Comments: TAKE ONE TABLET BY MOUTH EVERY DAY L. Acidophilus,Casei,Rhamnosus [Bio-K Plus] 1 cap PO DAILY Qty: 10 0RF prednisone 10 mg tablet 20 mg PO USEASDIRECTD Label Comments: TAKE 2 TABLETS BY MOUTH EVERY DAY FOR 5 DAYS started 02/20 albuterol sulfate 90 mcg/actuation HFA aerosol inhaler 2 puff INHALATION Q4H PRN Label Comments: INHALE TWO PUFFS BY MOUTH EVERY 4 HOURS NEEDED diclofenac sodium 1 % gel 2 applic TOPICAL TID PRN Label Comments: APPLY TOPICALLY THREE TIMES DAILY NEEDED Ofev 150 mg capsule 150 mg PO BID Label Comments: TAKE 1 CAPSULE BY MOUTH TWICE A DAY (EVERY 12 HOURS) DIRECTED WITH FOOD. tramadol 50 mg tablet 50 mg PO 6XD PRNQty: 30 0RF oxycodone 5 mg tablet 5 mg PO HS Qty: 7 0RF ipratropium-albuterol 0.5 mg-3 mg(2.5 mg base)/3 mL Solution For Nebulization 3 ml UPD Q4H PRN PRN (Reason: shortness of breath) Qty: 180 0RF cyanocobalamin (vitamin B-12) [Vitamin B-12] 1,000 mcg Tablet 1,000 mcg PO DAILY Discontinued albuterol sulfate 90 mcg/actuation HFA aerosol inhaler 2 puff inhalation Q4H PRN PRN Label Comments: INHALE TWO PUFFS BY MOUTH EVERY 4 HOURS Discharge Instructions Instructions: Bronchiolitis (DC), Viral Pneumonia (DC) Stand Alone Forms: Nursing Discharge Form Referrals: [facility] [Outside] Activity:: Activity as Tolerated Equipment/Supplies:: No Equipment Needed Diet:: As Tolerated Discharge Orders Discharge Orders: Discharge Order (Routine); Ordered 02/27/22 Ordered By: Lloyd Law Other Ambulatory Orders: Basic Metabolic Panel (Routine) Location: None Selected Ordered By: Lloyd Law DS: Summary Time Spent with Patient providing and/or coordinating discharge services: Greater than 30 minutes Status at Discharge Functional status at discharge: uses cane/walker Overall status at discharge: patient is not back to baseline Mental Status: mental status grossly normal Speech and Movement: speech clear Mood: euthymic mood Affect: blunted Exam Narrative Exam Narrative: Gen. Frail appearing, lying in bed NAD Lungs: fine crackles throughout both lower lung garcia consistent with her pulmonary fibrosis. No wheezes. CV: RRR, no murmur Abdomen Soft, NT, ND. Exts: No edema, calf pain. ROSIE hose in place. Psych: A&O x 3. Affect flat. Psych Mental Status: mental status grossly normal Speech and Movement: speech clear Mood: euthymic mood Affect: blunted DS: Data Vitals/I&O Vitals and I&O: Vital Signs Temperature 36.3 C L 02/27/22 08:05 Temperature Source Tympanic 02/27/22 08:05 Pulse 78 02/27/22 08:05 Pulse Rhythm Regular 02/27/22 00:53 Pulse 99 H 02/23/22 20:20 Respiratory Rate 20 02/27/22 08:05 Respiratory Effort Non-Labored 02/27/22 00:53 Respiratory Depth Normal 02/27/22 00:53 Respiratory Pattern Normal 02/27/22 00:53 Blood Pressure 142/80 H 02/27/22 08:05 Blood Pressure Mean 70 02/23/22 20:16 Blood Pressure Position Supine 02/23/22 16:03 Pulse Oximetry 97 02/27/22 08:41 Oxygen Delivery Method Room Air 02/27/22 08:41 Oxygen Flow Rate 0 02/27/22 08:41 Pain Level 5 02/27/22 08:05 Comment 02/26/22 09:08 Intake & Output 02/26/22 02/26/22 02/27/22 11:59 23:59 11:59 Intake Total 650 / 1560 910 / 1560 1431.333 / 1431.333 Output Total 850 / 1250 400 / 1250 100 / 100 Balance -200 / 310 510 / 310 1331.333 / 1331.333 Weight 39.2 kg Intake: IV 50 / 50 1181.333 / 1181.333 Oral 650 / 1510 860 / 1510 250 / 250 Output: Urine 850 / 1250 400 / 1250 100 / 100 Other: Urine Color Yellow Yellow Yellow Urine Appearance Clear Clear Clear Urine Odor None None None Comment unclear amount of urine output. Stool Size Small Small Stool Characteristics Soft Soft Voiding Methods Bedside Commode Bedpan Bedside Commode Data Completed and Pending Labs on day of discharge: Labs from last 24 hours 02/27/22 02/27/22 02/27/22 06:35 06:35 06:35 WBC 14.81 H RBC 3.51 L Hgb 10.9 L Hct 34.0 L MCV 97 H MCH 31.1 MCHC 32.1 RDW 14.6 Plt Count 206 MPV 10.2 Immature Gran % 0.7 Neutrophils % 87.8 Band Neutrophils % Lymphocytes % 8.8 Atypical Lymphs % Monocytes % 2.4 Eosinophils % 0.2 Basophils % 0.1 Metamyelocytes % Myelocytes % Promyelocytes % Other Cells % Nucleated RBC % 0.0 Absolute Neutrophils 13.00 H Absolute Lymphocytes 1.30 Absolute Monocytes 0.36 Absolute Eosinophils 0.03 Absolute Basophils 0.01 RBC Morphology Polychromasia Hypochromasia Poikilocytosis Basophilic Stippling Anisocytosis Microcytosis Macrocytosis Spherocytes Tear Drop Cells Ovalocytes Stomatocytes Staples[place] Bodies Vi Cells/Echinocytes Acanthocytes (Spur) Schistocytes Sodium 146 H Potassium 2.8 L* Chloride 108 H Carbon Dioxide 27.5 Anion Gap 10.5 BUN 28 H Creatinine 0.6 Estimated GFR/1.73 m2 >= 60.00 Glucose 87 Calcium 8.3 L Procalcitonin 1.4 02/26/22 02/26/22 05:35 05:30 WBC Cancelled RBC Cancelled Hgb Cancelled Hct Cancelled MCV Cancelled MCH Cancelled MCHC Cancelled RDW Cancelled Plt Count Cancelled MPV Cancelled Immature Gran % Cancelled Neutrophils % Cancelled Band Neutrophils % Cancelled Lymphocytes % Cancelled Atypical Lymphs % Cancelled Monocytes % Cancelled Eosinophils % Cancelled Basophils % Cancelled Metamyelocytes % Cancelled Myelocytes % Cancelled Promyelocytes % Cancelled Other Cells % Cancelled Nucleated RBC % Cancelled Absolute Neutrophils Cancelled Absolute Lymphocytes Cancelled Absolute Monocytes Cancelled Absolute Eosinophils Cancelled Absolute Basophils Cancelled RBC Morphology Cancelled Polychromasia Cancelled Hypochromasia Cancelled Poikilocytosis Cancelled Basophilic Stippling Cancelled Anisocytosis Cancelled Microcytosis Cancelled Macrocytosis Cancelled Spherocytes Cancelled Tear Drop Cells Cancelled Ovalocytes Cancelled Stomatocytes Cancelled [place] Bodies Cancelled [place] Cells/Echinocytes Cancelled Acanthocytes (Spur) Cancelled Schistocytes Cancelled Sodium Potassium Chloride Carbon Dioxide Anion Gap BUN Creatinine Estimated GFR/1.73 m2 Glucose Calcium Procalcitonin Cancelled Preliminary micro results at discharge 02/23/22 18:30 Blood Culture - Preliminary Blood NO GROWTH 72 HOURS 02/23/22 17:45 Blood Culture - Preliminary Blood NO GROWTH 72 HOURS PFSH All Active Problems (Updated 02/27/22 @ 10:42 by Lloyd Law MD) Hypomagnesemia (Acute) Hypokalemia (Acute) Discharge planning issues (Acute) ARPIT (acute kidney injury) (Acute) Acute dehydration (Acute) Pneumonia (Acute) Bilateral lower lobe Pulmonary fibrosis (Acute) Patient had previous work-up by Dr. Ferrara in [facility] in March 2018. Patient reports that her PFTs did not show underlying COPD, patient has a follow-up with Dr. Giron in February 16, 2019 F/U with with Dr. Woodard. Has supplemental O2 when needed (1L) Hip pain (Chronic) SOB (shortness of breath) (Acute) Medical History Acute UTI Arthritis of left wrist Calcium ureterolithiasis Chronic back pain Essential tremor Fibromyalgia Hypertension Osteoarthritis Pre-diabetes Renal stones Stress at home Stroke Stroke 11/24/21-pt. stated it was an acute stroke, f/u Dr. Anderson and stated she no longer needed to follow up with her, she takes a baby aspirin 81mg everyday for prevention Surgical History Hx of cataract surgery Hx of ultrasound guided needle biopsy of lung S/P cholecystectomy S/P gastric bypass S/P hernia repair S/P hysterectomy Family History Mother Stroke Maternal Grandmother Stroke Maternal Uncle Stroke Social History Smoking/Tobacco Use Status: Never Second Hand Exposure: Yes (Secondary to her parents as well as ) Smoking risk assessment performed?: Yes Alcohol Intake: never Drug use: Never Substance use type: does not use Household members: family and children [place] [facility] [place] Number of Children: 5 number of grandchildren: 8 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
[2022-02-27] MEDS: traMADol 50 MG TAB PO (10:37)
[2022-02-27] MEDS: Magnesium Oxide 400 MG TAB 800 MG PO (10:37)
[2022-02-27 11:07] LABS: Source Nasal/Nares
[2022-02-27 11:22] VITALS: BP 157/76; PULSE 98; RESP 28; TEMP 37.4; O2SAT 98
[2022-02-27 12:01] LABS: COVID-19 PCR Negative (Negative)
--- NOTE | 2022-02-27 13:23 | W.PALLCONSUL ---
Date of service: 02/27/22 Time of Service: 12:30 History of Present Illness Narrative: Ms. Ramirez is a 71 y/o F currently inpatient at [facility] 2/ PNA; PMHx sig for pulmonary fibrosis, HTN, chronic hip pain; PC consult placed for Code status, goals of care w/chronic disease states Initial patient visit not able to be completed due to patient's lethargy and fatigue, related to hypokalemia and hypomagnesemia. Presentation to patient's room around half an hour prior to schedule discharged at 1 PM. Patient agreeable to visit, feeling much better compared to this morning. Denies pain, denies shortness of breath, feels is almost back to baseline, however is agreeable to short-term rehab at the [facility] with a goal of 1 to 2 weeks prior to returning home. Ultimate goal is to return home to [place] where lives with daughter Marimar son Melquiades his partner Kristyn, and daughter Dona. Has 2 other children son Lars and daughter Kala, on file Kala is listed as healthcare agent, however upon questioning Ashley reports that would want children closer to home to be healthcare agents. Request paperwork not completed at this time, would like to follow-up. Reports has previously completed advanced directive, on file with primary care doctor darrius in the [facility] clinic. Report lives at home, independent ADLs at baseline, assistance with instrumental ADLs provided through Dona and Kristyn. Does have occasional incontinence where they will help her get cleaned up, does not occur daily. Uses walker for ambulation when out of home, no assistive device while in home will use furniture and linda for support as needed. Chronic hip pain currently controlled with tramadol and oxycodone, no complaints at this time Reports is followed by pulmonology in [place], follow-up scheduled for March. Is followed by [facility] Dr. Dwyer for rheumatoid arthritis, follow-up every 3 months. No home health services at this time, does have Meals on Wheels Goal: To return home. Agreeable to following with palliative care outpatient Hospital course: presented to [facility] ED on 02/23 w/CC SOB and weakness, work up l/t dx of PNA, transferred inpatient for monitoring and rehydration; Rocephin and doxycycline w/improving labs and O2 saturations; plan for d/c to SNF today w/continued Augmentin after potassium and magnesium replacement Assessment and Plan Assessment and plan (1) Palliative care encounter: Status: Acute Assessment and plan: continue to follow thru outpatient - at [facility] s/p d/c and HV moving forward to review AD from PCP office and f/u to review, update COLST and HCA (2) Hypomagnesemia: Status: Acute Assessment and plan: improved w/repletion (3) Hypokalemia: Status: Acute Assessment and plan: improved w/repletion (4) Acute dehydration: Status: Acute Assessment and plan: resolved, now on PO fluids (5) Pneumonia: Status: Acute Assessment and plan: improved, continue Augmentin Qualifiers: Pneumonia type: due to unspecified organism Laterality: right Lung location: lower lobe of lung Qualified Code(s): J18.9 - Pneumonia, unspecified organism (6) Pulmonary fibrosis: Status: Acute Assessment and plan: f/b Pulmonology, f/u in Mar continue CellCept and Ofev. continue inhaled beta adrenergic. completed course of prednisone 02/26/22 Review of Systems Constitutional Constitutional: Reports as per HPI PFSH All Active Problems (Updated 02/27/22 @ 13:49 by Kaylie Schultz NP) Palliative care encounter (Acute) Hypomagnesemia (Acute) Hypokalemia (Acute) Discharge planning issues (Acute) ARPIT (acute kidney injury) (Acute) Acute dehydration (Acute) Pneumonia (Acute) Bilateral lower lobe Pulmonary fibrosis (Acute) Patient had previous work-up by [facility]. Ferrara in [facility] in March 2018. Patient reports that her PFTs did not show underlying COPD, patient has a follow-up with Dr. Giron in February 16, 2019 F/U with with Dr. Woodard. Has supplemental O2 when needed (1L) Hip pain (Chronic) SOB (shortness of breath) (Acute) Medical History Acute UTI Arthritis of left wrist Calcium ureterolithiasis Chronic back pain Essential tremor Fibromyalgia Hypertension Osteoarthritis Pre-diabetes Renal stones Stress at home Stroke Stroke 11/24/21-pt. stated it was an acute stroke, f/u Dr. Anderson and stated she no longer needed to follow up with her, she takes a baby aspirin 81mg everyday for prevention Surgical History Hx of cataract surgery Hx of ultrasound guided needle biopsy of lung S/P cholecystectomy S/P gastric bypass S/P hernia repair S/P hysterectomy Family History Mother Stroke Maternal Grandmother Stroke Maternal Uncle Stroke Social History Smoking/Tobacco Use Status: Never Second Hand Exposure: Yes (Secondary to her parents as well as ) Smoking risk assessment performed?: Yes Alcohol Intake: never Drug use: Never Substance use type: does not use Household members: family and children Housing: other Details: [place] home Number of Children: 5 number of grandchildren: 8 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 Pets and animals: Yes Pets and animals: dog(s) Current gender identity: female What is your relationship status?: Panel score (0-1 are the most socially isolated patients): 0 What type of physical activity do you participate in: walking Frequency: daily Seatbelt use: always Do you feel safe at home: Yes Do you feel safe in your relationship?: Yes History History 4 Para Hx # Term Pregnancies 4 Multiple births Hx # Pregnancies Ectopic pregnancies AB induced Hx Number of Living Children AB spontaneous Exam Const General: cooperative, comfortable, no acute distress, frail appearing and lethargic Nutritional Appearance: thin HENMT Head: normal to inspection, normocephalic and atraumatic Ears: hearing grossly normal bilaterally Resp Effort & Inspection: normal respiratory effort, able to speak in complete sentences, no audible wheezes and no cough Skin General skin exam: no rashes or lesions noted Psych Speech and Movement: speech clear Attitude: cooperative Thought Process: normal Results Last Vital Signs Temp 99.3 F 02/27/22 11:22 Pulse 98 H 02/27/22 11:22 Resp 28 H 02/27/22 11:22 BP 157/76 H 02/27/22 11:22 Pulse Ox 98 02/27/22 11:22 Labs Result diagrams: 02/27/22 06:35 02/27/22 06:35 Labs: Laboratory Results - last 24 hr 02/26/22 02/26/22 02/27/22 05:30 05:35 06:35 WBC Cancelled RBC Cancelled Hgb Cancelled Hct Cancelled MCV Cancelled MCH Cancelled MCHC Cancelled RDW Cancelled Plt Count Cancelled MPV Cancelled Immature Gran % Cancelled Neutrophils % Cancelled Band Neutrophils % Cancelled Lymphocytes % Cancelled Atypical Lymphs % Cancelled Monocytes % Cancelled Eosinophils % Cancelled Basophils % Cancelled Metamyelocytes % Cancelled Myelocytes % Cancelled Promyelocytes % Cancelled Other Cells % Cancelled Nucleated RBC % Cancelled Absolute Neutrophils Cancelled Absolute Lymphocytes Cancelled Absolute Monocytes Cancelled Absolute Eosinophils Cancelled Absolute Basophils Cancelled RBC Morphology Cancelled Polychromasia Cancelled Hypochromasia Cancelled Poikilocytosis Cancelled Basophilic Stippling Cancelled Anisocytosis Cancelled Microcytosis Cancelled Macrocytosis Cancelled Spherocytes Cancelled Tear Drop Cells Cancelled Ovalocytes Cancelled Stomatocytes Cancelled [place]ples[place] Bodies Cancelled [place] Cells/Echinocytes Cancelled Acanthocytes (Spur) Cancelled Schistocytes Cancelled Sodium Potassium Chloride Carbon Dioxide Anion Gap BUN Creatinine Estimated GFR/1.73 m2 Glucose Calcium Procalcitonin Cancelled 1.4 COVID-19 Source SARS-CoV-2 (PCR) 02/27/22 02/27/22 07 06:35 06:35 11:00 WBC 14.81 H RBC 3.51 L Hgb 10.9 L Hct 34.0 L MCV 97 H MCH 31.1 MCHC 32.1 RDW 14.6 Plt Count 206 MPV 10.2 Immature Gran % 0.7 Neutrophils % 87.8 Band Neutrophils % Lymphocytes % 8.8 Atypical Lymphs % Monocytes % 2.4 Eosinophils % 0.2 Basophils % 0.1 Metamyelocytes % Myelocytes % Promyelocytes % Other Cells % Nucleated RBC % 0.0 Absolute Neutrophils 13.00 H Absolute Lymphocytes 1.30 Absolute Monocytes 0.36 Absolute Eosinophils 0.03 Absolute Basophils 0.01 RBC Morphology Polychromasia Hypochromasia Poikilocytosis Basophilic Stippling Anisocytosis Microcytosis Macrocytosis Spherocytes Tear Drop Cells Ovalocytes Stomatocytes [place] Bodies [place] Cells/Echinocytes Acanthocytes (Spur) Schistocytes Sodium 146 H Potassium 2.8 L* Chloride 108 H Carbon Dioxide 27.5 Anion Gap 10.5 BUN 28 H Creatinine 0.6 Estimated GFR/1.73 m2 >= 60.00 Glucose 87 Calcium 8.3 L Procalcitonin COVID-19 Source Nasal/Nares SARS-CoV-2 (PCR) Negative
--- NOTE | 2022-02-27 14:45 | NT_ITS ---
PT Notes Visit Reasons: Pneumonia, Pulmonary Fibrosis multiple attempts made this am for treatment. Ashley was busy all am. She refused when I was able to get in with her. States she has been busy all am and is too tired to accomplish anything, she is also still having pain. She reports that she will be going to custodial later today.
--- NOTE | 2022-02-27 16:52 | CMDISCH_ITS ---
- If Service Date Differs Date of service: 02/27/22 Time of Service: 16:52 LACE Index Scoring Tool - Questions: Length of Stay (in days): 3 Acuity (Admit via E.D.?): Yes Comorbidities: Cerebrovascular Disease, Chronic Pulmonary Disease E.D. Visits: 7 - Answers: Total Score: 13 Risk of Readmission: High Risk Care Management Discharge Reason for Hospitalization: pneumonia Discharge Plan: Ashley went to the [facility] today for short term elise ab prior to returning home. She transported via w/[facility], [facility], coordinated by CM. She will follow up with her PCP and discharge plan of care. She is happy to be going for rehab. CM called her daughter, Kala, to inform her of the discharge plan, at Ashley's request. Patient/Family Education Needs: Review discharge instructions and limitations, discussion of self care needs including ask me three and goals of care. Services Needed at Discharge: [facility] Facility ([facility]), Transportation ([facility])
== END 2022-02-27 13:02 | disposition skilled nursing facility (03) | DRG 194 ==
LOC: ER 19:52 → MS 20:37
PROVIDERS: Family Medicine; Admitting Provider Family Medicine; Emergency Provider Physician Assistant; PCP Family Medicine; Visit Provider Family Medicine
DX: J18.9 Pneumonia, unspecified organism (principal); D84.821 Immunodeficiency due to drugs; N17.9 Acute kidney failure, unspecified; J84.10 Pulmonary fibrosis, unspecified; E83.42 Hypomagnesemia; E87.6 Hypokalemia; G89.29 Other chronic pain; I10 Essential (primary) hypertension; M25.559 Pain in unspecified hip; R53.1 Weakness; Z79.82 Long term (current) use of aspirin; Z79.891 Long term (current) use of opiate analgesic; Z86.73 Personal history of transient ischemic attack (TIA), and cerebral infarction without residual deficits; Z98.84 Bariatric surgery status; Z79.899 Other long term (current) drug therapy
CPT/HCPCS: 36415; 80048; 80053; 82805; 84145; 87040; 87635; 87637; 93005; 96361; 96365; 96367; 96375; 97110; 97162; 97530; 99291; 71045; 81003; 81015; 83605; 83880; 84484; 85025; 87086; 93010; 99220; 99232; 99239; J0696; J1650; J2930; J3480; J7512; J7517; J7620

== ENCOUNTER 2022-02-28 10:38 | Outpatient (REF) | payer MEDICARE, MEDICAID, SELFPAY ==
[2022-02-28 11:03] LABS: Abs Immature Grans 0.07 10^3/uL (0.0-0.06); Absolute Basophil Count 0.02 10^3/uL (0.0-0.2); Absolute Eosinophil Count 0.09 10^3/uL (0.0-0.7); Absolute Lymphocyte Count 1.25 10^3/uL (1.2-3.4); Absolute Monocyte Count 0.39 10^3/uL (0.1-0.8); Absolute Neutrophil Count 8.97 10^3/uL (1.2-6.7); Basophils % 0.2; Eosinophils % 0.8; HCT 33.1 % (36.0-46.0); HGB 10.4 g/dL (11.2-15.7); Immature Grans % 0.6; Lymphocytes % 11.6; MCH 31.5 pg (27.0-33.0); MCHC 31.4 % (32.0-36.0); MCV 100 fL (80-95); MPV 10.9 fL (8.0-11.0); Monocytes % 3.6; Neutrophils % 83.2; Platelet Count 238 10^3/uL (130-400); RDW 14.7 % (11.7-14.6); RDW-SD 53.9 fL; WBC 10.79 10^3/uL (4.4-10.8)
[2022-02-28 11:13] LABS: Iron 43 ug/dL (50-170); Total Iron Binding Capacity 196 ug/dL (250-450); Transferrin Sat 22 % (15-50)
[2022-02-28 11:14] LABS: Hemoglobin A1C 5.8 % (<5.7)
[2022-02-28 11:37] LABS: Vitamin D 25 Total < 5 ng/mL (30-100)
[2022-02-28 11:45] LABS: ALT 48 U/L (14-59); AST 62 U/L (15-37); Albumin 1.9 g/dL (3.4-5.0); Alkaline Phosphatase 250 U/L (46-116); Anion Gap 6.2 mmol/L (3-11); BUN 17 mg/dL (7-18); Bilirubin, Total 0.5 mg/dL (0.2-1.0); CO2 30.8 mmol/L (21.0-32.0); CREATININE 0.6 mg/dL (0.55-1.02); Calcium 7.8 mg/dL (8.5-10.1); Chloride 107 mmol/L (98-107); Ferritin 456 ng/mL (8-252); Glucose 115 mg/dL (74-106); Magnesium 1.5 mg/dL (1.8-2.4); Potassium 3.3 mmol/L (3.5-5.1); Sodium 144 mmol/L (136-145); TSH (W/Ref FT4) 4.18 uIU/mL (0.36-3.74); Total Protein 5.1 g/dL (6.4-8.2)
[2022-02-28 11:46] LABS: Vitamin B12 > 2000 pg/mL (193-986)
[2022-02-28 12:04] LABS: FREE T4 0.81 ng/dL (0.76-1.46)
== END 2022-02-28 10:39 | disposition home or self-care (01) ==
LOC: LBN 10:38
PROVIDERS: PCP Family Medicine; Visit Provider Nurse Practitioner Gerontology
DX: M25.559 Pain in unspecified hip (principal); R68.89 Other general symptoms and signs; I10 Essential (primary) hypertension; J84.10 Pulmonary fibrosis, unspecified; J18.9 Pneumonia, unspecified organism
CPT/HCPCS: 80053; 82306; 82607; 82728; 83036; 83540; 83550; 83735; 84439; 84443; 85025

== ENCOUNTER 2022-03-04 13:29 | Outpatient (REF) | payer MEDICARE, MEDICAID, SELFPAY ==
[2022-03-04 18:17] LABS: Anion Gap 3.6 mmol/L (3-11); BUN 13 mg/dL (7-18); CO2 29.4 mmol/L (21.0-32.0); CREATININE 0.8 mg/dL (0.55-1.02); Calcium 7.8 mg/dL (8.5-10.1); Chloride 107 mmol/L (98-107); Glucose 89 mg/dL (74-106); Potassium 5.2 mmol/L (3.5-5.1); Sodium 140 mmol/L (136-145)
== END 2022-03-04 13:30 | disposition home or self-care (01) ==
LOC: LBN 13:29
PROVIDERS: PCP Family Medicine; Visit Provider Nurse Practitioner Gerontology
DX: R68.89 Other general symptoms and signs (principal); I10 Essential (primary) hypertension
CPT/HCPCS: 80048

== ENCOUNTER 2022-03-11 16:02 | Outpatient (REF) | payer MEDICARE, MEDICAID, SELFPAY ==
[2022-03-11 17:27] LABS: Anion Gap 10.4 mmol/L (3-11); BUN 16 mg/dL (7-18); CO2 24.6 mmol/L (21.0-32.0); Calcium 8.7 mg/dL (8.5-10.1); Chloride 103 mmol/L (98-107); Estimated GFR 54.66 (mL/min/1.73m2); Glucose 80 mg/dL (74-106); Sodium 138 mmol/L (136-145)
== END 2022-03-11 16:03 | disposition home or self-care (01) ==
LOC: LBN 16:02
PROVIDERS: PCP Family Medicine; Visit Provider Nurse Practitioner Gerontology
DX: M62.81 Muscle weakness (generalized) (principal); J84.10 Pulmonary fibrosis, unspecified; R68.89 Other general symptoms and signs; I10 Essential (primary) hypertension
CPT/HCPCS: 80048

== ENCOUNTER 2022-03-12 15:41 | Outpatient (REF) | payer MEDICARE, MEDICAID, SELFPAY ==
[2022-03-12 13:50] LABS: Abs Immature Grans 0.09 10^3/uL (0.0-0.06); Absolute Basophil Count 0.06 10^3/uL (0.0-0.2); Absolute Eosinophil Count 0.29 10^3/uL (0.0-0.7); Absolute Lymphocyte Count 2.04 10^3/uL (1.2-3.4); Absolute Neutrophil Count 7.84 10^3/uL (1.2-6.7); Basophils % 0.5; Eosinophils % 2.6; HCT 37.2 % (36.0-46.0); HGB 11.1 g/dL (11.2-15.7); Immature Grans % 0.8; MCH 31.1 pg (27.0-33.0); MCHC 29.8 % (32.0-36.0); MCV 104 fL (80-95); MPV 9.2 fL (8.0-11.0); Monocytes % 8.8; Neutrophils % 69.3; Platelet Count 362 10^3/uL (130-400); RBC 3.57 10^6/uL (3.93-5.22); RDW 14.8 % (11.7-14.6); RDW-SD 57.4 fL; WBC 11.31 10^3/uL (4.4-10.8)
--- OUTSIDE RECORDS SUMMARY | 2022-03-12 15:43 | XMS_ITS | Encounter Summary ---
:1950 Author Organization [facility] [place] [address] Care Team Providers Name Role Phone Wanda Castillo Primary Care Provider Encounter Details Date Type Department Care Team Description 12/08/[address] [facility] [place] [address] Social History Tobacco Use Types Packs/Day Years Used Date Never Smoker Smokeless Tobacco: Never Used Alcohol Use Standard Drinks/Week Comments No 0 (1 standard drink = 0.6 oz pure alcoho l) Sex Assigned at Date Recorded Not on file documented as of this encounter Miscellaneous Notes Telephone Encounter - Bertha Mccartney - 12/08/2019 1:39 PM EDT Received call from the office of Dr. Chela Knight at [facility]. Dr. Knight had a telemed appointment with Ashley this morning and would like Dr. Dwyer to call her regarding this patient. She is hoping for a return call today (12/08/19). Dr. Knight can be reached at [phone] option 1. documented in this encounter Plan of Treatment Upcoming Encounters Date Type Specialty Care Team Description 05/28/2022 Appointment Pulmonology 05/28/2022 Office Visit Pulmonology Sonja Jenkins MD [facility] [place], [place] [address] (Wo rk) documented as of this encounter Visit Diagnoses Not on filedocumented in this encounter Care Teams Flask Fitter Relationship Specialty Start Date End Date Wanda Castillo PA PCP - General General Internal Medicine 05/16/17 1 [facility] [place] [address] documented as of this encounter
--- OUTSIDE RECORDS SUMMARY | 2022-03-12 15:43 | XMS_ITS | Encounter Summary ---
:1950 Author Organization [facility] [place] [address] Care Team Providers Name Role Phone Wanda Castillo Primary Care Provider Encounter Details Date Type Department Care Team Description 12/28/[address] [facility] [place] [facility] [place] [address] Social History Tobacco Use Types Packs/Day Years Used Date Never Smoker Smokeless Tobacco: Never Used Alcohol Use Standard Drinks/Week Comments No 0 (1 standard drink = 0.6 oz pure alcoho l) Sex Assigned at Date Recorded Not on file documented as of this encounter Miscellaneous Notes Telephone Encounter - Bertha Mccartney - 12/28/2019 3:44 PM EDT Received call from Ashley's daughter asking if the Rx for tramadol had been done yet. I did look this up and told Marimar that the nurse had received the request, had queue'd up the Rx and was just waiting for a doctor to sign off on it. She asked me to pass on that [facility] closes at 6 pm due to COVID. Told her I would pass this on. documented in this encounter Plan of Treatment Upcoming Encounters Date Type Specialty Care Team Description 05/28/2022 Appointment Pulmonology 05/28/2022 Office Visit Pulmonology Sonja Jenkins MD [facility] [place], [place] [address] (Wo rk) documented as of this encounter Visit Diagnoses Not on filedocumented in this encounter Care Teams Ic Designer Custom Relationship Specialty Start Date End Date Wanda Castillo PA PCP - General General Internal Medicine 05/16/17 1 [facility] [place] [address] documented as of this encounter
--- OUTSIDE RECORDS SUMMARY | 2022-03-12 15:43 | XMS_ITS | Encounter Summary ---
:1950 Author Organization [facility] [place] [address] Care Team Providers Name Role Phone Wanda Castillo Primary Care Provider Reason for Visit Reason Onset Date Comments Medication Refill 03/30/2020 Encounter Details Date Type Department Care Team Description 03/30/2020 Refill Rheumatology at [facility] [place] Zari Maldonado, RN [facility] [place] [address] Social History Tobacco Use Types Packs/Day Years Used Date Never Smoker Smokeless Tobacco: Never Used Alcohol Use Standard Drinks/Week Comments No 0 (1 standard drink = 0.6 oz pure alcoho l) Sex Assigned at Date Recorded Not on file documented as of this encounter Plan of Treatment Upcoming Encounters Date Type Specialty Care Team Description 05/28/2022 Appointment Pulmonology 05/28/2022 Office Visit Pulmonology Sonja Jenkins MD [facility] er [facility] [place], [place] [address] (Wo rk) documented as of this encounter Visit Diagnoses Not on filedocumented in this encounter Care Teams Weigher Production Relationship Specialty Start Date End Date Wanda Castillo PA PCP - General General Internal Medicine 05/16/[address] [place] [address] [place] [address] documented as of this encounter
--- OUTSIDE RECORDS SUMMARY | 2022-03-12 15:43 | XMS_ITS | Clinical Summary ---
:1950 Author Organization [facility] Address [address] [place] [address] Care Team Providers Name Role Phone Rober Cho MD Primary Care Provider Allergies Active Allergy Reactions Severity Noted Date Comments Sulfa (Sulfonamide Shortness Of Breath, Rash High Antibiotics) Valdecoxib Rash Medium Diffuse rash Medications Medication Sig Dispensed Refills Start Date End Date Status desonide (DESOWEN) 0.05 Prn 0 05/04/2014 Active % Lotion cyanocobalamin, vitamin every 30 days. 0 06/20/2014 Active B-12, 1,000 mcg/mL Solution oxyCODONE (ROXICODONE) 5 Take 1-2 tablets 20 tablet 0 04/23/20 15 Active mg Tablet by mouth every 4 hours as needed for Pain. No driving, no alcohol lidocaine (LIDODERM) 5 % Apply 1 patch 30 patch 11 05/19/2017 Active Adhesive Patch, onto the skin MedicatedIndications: daily. (leave on Lumbar degenerative disc for 12 hours and disease, Back pain, remove for 12 unspecified back hours) location, unspecified back pain laterality, unspecified chronicity albuterol 90 Inhale 2 puffs 1 Inhaler 1 05/19/2017 A ctive mcg/actuation HFA into the lungs Aerosol every 4 hours as InhalerIndications: MILLER needed for (dyspnea on exertion) Wheezing. Use with spacer multivitamin with Take 1 tablet by 0 Active minerals Tablet mouth daily. aspirin 81 mg Tablet, Take 81 mg by 0 11/04/2016 Active Delayed Release (E.C.) mouth. folic acid (FOLVITE) 1 take 1 tablet by 0 05/28/2017 Active mg Tablet mouth once daily sulindac (CLINORIL) 150 Take 1 tablet by 60 tablet 5 8 Active mg TabletIndications: mouth 2 times Primary osteoarthritis daily. With involving multiple food. joints, Lumbosacral spondylosis without myelopathy, Back pain, unspecified back location, unspecified back pain laterality, unspecified chronicity, Fibromyalgia, Pain in right hip, Disorder of bursae and tendons in shoulder region, Primary osteoarthritis of hip, unspecified laterality Additional Information Patient not taking. Reported on 02/19/2022 traMADoL (Ultram) 50 mg Take 1-2 tablets by 180 tablet 0 03/31 Active Tablet mouth every 8 hours as needed for Pain. mycophenolate (CELLCEPT) 500 Take 1,000 mg by mouth 0 11/04/2021 Active mg Tablet 2 times daily. Ofev 150 mg Capsule Take 150 mg by mouth 0 2 Active every 12 hours as needed. losartan-hydrochlorothiazide Take 1 tablet by mouth 0 10/30/2021 Active (HYZAAR) 50-12.5 mg Tablet daily. diclofenac (Voltaren) 1 % Apply topically 3 times 300 g 3 11/21/2021 Active GelIndications: Lumbosacral daily as needed. spondylosis without myelopathy, Disorder of bursae and tendons in shoulder region, Primary osteoarthritis of hip, unspecified laterality Active Problems Problem Noted Date Positive CRISTOFER (antinuclear antibody) 11/29/2019 Rheumatoid factor positive 11/29/2019 ILD (interstitial lung disease) 11/29/2019 Pulmonary fibrosis 11/29/2019 Low ferritin 05/19/2017 Folate deficiency 05/19/2017 Vitamin B deficiency 05/19/2017 Fibromyalgia 05/19/2017 Pain 05/19/2017 Primary osteoarthritis involving multiple joints 07/23 Ankle fracture, left 07/23/2016 Dysphagia 07/23/2016 Arthralgia 07/23/2016 Osteoarthritis of right hand 01/23/2016 Primary osteoarthritis of hip 09/14/2015 Weight loss 09/14/2015 SBO (small bowel obstruction) 02/18/2015 Abdominal pain, RUQ (right upper quadrant) 08/25/2014 Primary osteoarthritis of right hip 12/31/2012 Lumbosacral spondylosis without myelopathy 07/16/2012 Right hip pain 07/16/2012 Disorder of bursae and tendons in shoulder region 03/2011 Primary osteoarthritis of left hand 07/25/2011 Osteoarthrosis, unspecified whether generalized or loc alized, lower leg 07/25/2011 Back pain 07/25/2011 Lumbar degenerative disc disease 07/25/2011 Degenerative arthritis of cervical spine 07/25/2011 Encounters Date Type Specialty Care Team Description 12/31/2021 Telephone Pulmonology Katie Mederos from Last 3 Months Immunizations Name Administration Dates Next Due Influenza Vaccine PF, Quadrivalent 11/05/2016 Influenza Vaccine w/Preservative, 05/18/2015, 06/18/2014 Split Pneumococcal Conjugate (13 Valent) 05/19/2017 Tdap Vaccine 05/20/2017 (Deferred: Patient Refused) Zoster Vaccine, Live 06/18/2014, 01/16/2014 Family History Medical History Relation Comments Hypertension Daughter Cerebrovascular Accident Maternal Grandmother Cerebrovascular Accident Mother Hypertension Mother Relation Status Comments Daughter Maternal Grandmother Mother Social History Tobacco Use Types Packs/Day Years Used Date Never Smoker Smokeless Tobacco: Never Used Alcohol Use Standard Drinks/Week Comments No 0 (1 standard drink = 0.6 oz pure alcoho l) Sex Assigned at Date Recorded Not on file Last Filed Vital Signs Vital Sign Reading Time Taken Comments Blood Pressure 147/83 11/21/2021 1:26 PM EDT Pulse 94 11/21/2021 1:26 PM EDT Temperature 36.7 ??C (98.1 ??F) 05/25/2019 10:40 AM EDT Respiratory Rate 22 11/21/2021 1:26 PM EDT Oxygen Saturation 100% 11/21/2021 1:26 PM EDT Inhaled Oxygen Concentration - - Weight 42.7 kg (94 lb 3.2 oz) 11/21/2021 1:26 PM EDT Height 152.4 cm (5') 11/21/2021 1:26 PM EDT Body Mass Index 18.4 11/21/2021 1:26 PM EDT Plan of Treatment Upcoming Encounters Date Type Specialty Care Team Description 05/28/2022 Appointment Pulmonology 05/28/2022 Office Visit Pulmonology Sonja Jenkins MD [facility] Pul[facility] [place], [place] [address] (Wo rk) Health Maintenance Due Date Last Done Comments Covid-19 Vaccine (#1) 1955 Hepatitis C Screening 1968 Tdap adult 1969 Tetanus vaccine 1969 Breast Cancer Share Decision Needed 1990 Colonoscopy 1995 Breast Cancer screening 2000 Advance Directive 2005 Zoster vaccine (2 of 3) 08/13/2014 06/18/2014, 01/16/2014 Bone Density Scan 2015 Pneumoccocal Vaccine: 65+ (2 - PPSV23 05/19/2018 05/19/2017 or PCV20) Influenza (Flu) vaccine (1 of 1 - 04/18/2022 11/05/2016, , Influenza standard series) 06/18/2014 Insurance Payer Benefit Plan / Subscriber ID Effective Dates Phone Addre ss Type Group MEDICARE MEDICARE PART [id number] 2015-Presen [id number] [place] [id number] [place] [id number] 2019-Presen [phone] [address] [place] [address] Advance Directives Latest Code Status on File Code Status Date Activated Date Inactivated Comments Full Code 02/18/2015 6:34 PM 02/23/2015 1:41 PM Does patient have decision making capacity? Yes, order is based on Patient wishes. Care Teams Child Adolescent Care Relationship Specialty Start Date End Date Rober Cho MD PCP - General Family Medicine 02/05/21 [address] [place] [address]
--- OUTSIDE RECORDS SUMMARY | 2022-03-12 15:43 | XMS_ITS | Encounter Summary ---
:1950 Author Organization [facility] [place] [address] Care Team Providers Name Role Phone Wanda Castillo Primary Care Provider Reason for Visit Reason Onset Date Comments Medication Refill 06/30/2019 Encounter Details Date Type Department Care Team Description 06/30/2019 [place] [facility] [place]ari Maldonado, RN [facility] [place] [address] Social History Tobacco Use Types Packs/Day [...] 05/28/2022 Office Visit Pulmonology Sonja Jenkins MD [facility] [place], [place] [address] (Wo rk) documented as of this encounter Visit Diagnoses Not on filedocumented in this encounter Care Teams Rod Buster Relationship Specialty Start Date End Date Wanda Castillo PA PCP - General General Internal Medicine 05/16/[address] [place] [address] [place] [address] documented as of this encounter
--- OUTSIDE RECORDS SUMMARY | 2022-03-12 15:43 | XMS_ITS | Encounter Summary ---
:1950 Author Organization [facility] Address [address] [place] [address] Care Team Providers Name Role Phone Wanda Castillo Primary Care Provider Encounter Details Date Type Department Care Team Description 12/09/2019 Telephone [place]ology [place] [facility] [place] Hesham Dwyer MD [place] [address] RHEUMATOLOGY DEPT. [phone] [place], [place] [address] (Wo rk) Social History Tobacco Use Types Packs/Day Years Used Date Never Smoker Smokeless Tobacco: Never Used Alcohol Use Standard Drinks/Week Comments No 0 (1 standard drink = 0.6 oz pure alcoho l) Sex Assigned at Date Recorded Not on file documented as of this encounter Miscellaneous Notes Telephone Encounter - Hesham Dwyer MD - 12/09/2019 6:28 PM EDT Spoke with Dr. Knight, sample tailor at [facility] pool [place]. We agreed to proceed with CellCept at 500 mg a day for one month. We'll titrate slowly up to target dose of 2000 mg a day. She will have Ashley get labs every 2 weeks. I'll speak with Ashley about further w/u of hematuria and barium swallow. documented in this encounter Plan of Treatment Upcoming Encounters Date Type Specialty Care Team Description 05/28/2022 Appointment Pulmonology 05/28/2022 Office Visit Pulmonology Sonja Jenkins MD [facility] [place], [place] [address] (Wo rk) documented as of this encounter Visit Diagnoses Not on filedocumented in this encounter Care Teams Air Traffic Systems Technician Relationship Specialty Start Date End Date Wanda Castillo PA PCP - General General Internal Medicine 05/16/17 1 [facility] [place] [address] documented as of this encounter
--- OUTSIDE RECORDS SUMMARY | 2022-03-12 15:43 | XMS_ITS | Encounter Summary ---
:1950 Author Organization [facility] Address [facility] [place] [address] Care Team Providers Name Role Phone Rober Cho MD Primary Care Provider Reason for Referral Consultation (Urgent) - Closed Specialty Diagnoses / Procedures Referred By Contact Refer red To Contact Pulmonology Diagnoses ILD (interstitial lung disease) Positive CRISTOFER (antinuclear antibody) Rheumatoid factor positive Pulmonary fibrosis Hesham Dwyer MD [facility] [address] [place] [address] [facility] [place] [address] [place] [address] Referral ID Status Reason Start Date Expiration Date Visits V isits Requested Authorized [id number] Closed Consult, 11/22/2021 11/22/2022 1 1 Test & Treat Reason for Visit Reason Comments Follow-up Encounter Details Date Type Department Care Team Description 11/21/2021 Office Visit Rheumatology at [facility] Hesham Dwyer Lumbosacral spondylosis with out myelopathy; [facility] MD Nell Disorder of bursae and tendons in should er region; [facility] Primary osteoarthritis of hi p, unspecified laterality; [place], [place] ILD (interstitial lung disease); [id number] RHEUM[address]PT[address] Positive CRISTOFER (antinuclear antibody); [phone] [place] [address] [phone] 6 Rheumatoid factor positive; [phone] (Wo rk) Pulmonary fibrosis Social History Tobacco Use Types Packs/Day Years Used Date Never Smoker Smokeless Tobacco: Never Used Alcohol Use Standard Drinks/Week Comments No 0 (1 standard drink = 0.6 oz pure alcoho l) Sex Assigned at Date Recorded Not on file documented as of this encounter Last Filed Vital Signs Vital Sign Reading Time Taken Comments Blood Pressure 147/83 11/21/2021 1:26 PM EDT Pulse 94 11/21/2021 1:26 PM EDT Temperature - - Respiratory Rate 22 11/21/2021 1:26 PM EDT Oxygen Saturation 100% 11/21/2021 1:26 PM EDT Inhaled Oxygen Concentration - - Weight 42.7 kg (94 lb 3.2 oz) 11/21/2021 1:26 PM EDT Height 152.4 cm (5') 11/21/2021 1:26 PM EDT Body Mass Index 18.4 11/21/2021 1:26 PM EDT documented in this encounter Progress Notes Hesham Dwyer MD - 11/21/2021 1:30 PM EDT Rheumatology Clinic: Dr. Dwyer 11/21/2021 [id number] Ashley Da Silva is seen in follow-up of her widespread osteoarthritis, fibromyalgia, chronic pain, but more recently ILD, perhaps related to an underlying connective tissue disease. Please see our last TeleHealth note from 09/05/2020. More details of her work-up for the pulmonary problem by Dr. Chela Knight in [facility] are in our TeleHealth note from 11/23/2019. After that phone visit back in November 2019, we had her get lab work close to home, which was done in the [facility] system. Her CRISTOFER was positive at a titer of 1:320 in a speckled pattern. DIVINE and antidouble-stranded DNA were negative. Complements were normal. Rheumatoid factor was positive at 12.1 units, with normal less than 12. Her CCP was negative. Dr. Knight had started her on nintedanib, the antifibrotic agent. She contacted us witha concern that there was an underlying inflammatory process driving her lung disease. There was no definitive answer there, but we decided to go ahead and treat her presumptively with mycophenolate. Wegradually increased that to 1000 mg twice a day. At that last visit in August 2020, over a year ago, she reported that she was having nausea, vomiting, and diarrhea. She thought it might be related tothe Boost liquid protein supplement she was on because of significant weight loss. Over time, she reports today that she has become convinced that it's the medications, and not the Boost, which she cont inues to use. Symptoms are tolerable and she would prefer to keep treating the pulmonary problem effectively rather than taking a chance on stopping the medications. She also developed a tremor, presumably from the CellCept, and that continues. Unfortunately, in the interim has moved to [facility]. Ashley has no local electrical service technician. Her plan now is to move closer to here, perhaps in the [facility] area. Miraculous to say, she survived COVID-19. She tested positive back in September,. This was a routine screening before some cataract surgery. She really didn't have any symptoms. She was given monoclonalantibodies immediately and did well. She has had a recent CT scan, by her recollection, but we don'thave that available and I asked her to have that sent down. She has not had PFTs in a long time. Originally Dr. Knight was getting them every 3 months. She is still getting blood work every 3 months because of the medications. She now sees Chloe Barrett and Rober Cho in [place] as her primary team. More recently, she had another scare. This was on 10/24/2021 when she woke up at 5:30 in the morning with some confusion. She went to the emergency room and a head CT scan apparently showed a small acuteinfarct. Her symptoms pretty much resolved. She subsequently saw her a neurologist who said everything looked fine, according to her. They did an extensive work-up, again according to her, looking for a cause and couldn't find any. She is now on an aspirin a day. We'll need to track down those notesas well. In terms of the weight issue, she got as low as 83 pounds back in late 2019. She was able to get herweight up to 126 pounds x 08/2020 when she was using a lot of protein supplements and eating as much as she could tolerate. Last fall, she had drifted down to 119 pounds. Recently she is at 94 to 96 pounds, believes she is stable there, and feels okay at that weight, although she is clearly very thin. Interestingly, her O2 sat at rest without oxygen is 100% and that has been her experience at home. She does of course have significant dyspnea on exertion, but she has never been on supplemental oxygen to date. In the background, of course, are all her old issues with musculoskeletal pain. She uses Voltaren gel and finds that helpful. She would like a refill on that. She tries to stay active. She walks several times a day, at the very least around her home. She also lifts water bottles, using them as weights. She lives with her two daughters, Marimar and Rebecca. They both wait on her and she feels very declan to have them with her at home. Patient Active Problem List Diagnosis Code ??? Disorder of bursae and tendons in shoulder region M71.9, M67.919 ??? Primary osteoarthritis of left hand M19.042 ??? Osteoarthrosis, unspecified whether generalized or localized, lower leg MID1108 ??? Back pain M54.9 ??? Lumbar degenerative disc disease M51.36 ??? Degenerative arthritis of cervical spine M47.812 ??? Lumbosacral spondylosis without myelopathy M47.817 ??? Right hip pain M25.551 ??? Primary osteoarthritis of right hip M16.11 ??? Abdominal pain, RUQ (right upper quadrant) R10.11 ??? SBO (small bowel obstruction) K56.609 ??? Primary osteoarthritis of hip M16.10 ??? Weight loss R63.4 ??? Osteoarthritis of right hand M19.041 ??? Primary osteoarthritis involving multiple joints M15.9 ??? Ankle fracture, left S82.892A ??? Dysphagia R13.10 ??? Arthralgia M25.50 ??? Low ferritin R79.0 ??? Folate deficiency E53.8 ??? Vitamin B deficiency E53.9 ??? Fibromyalgia M79.7 ??? Pain R52 ??? Positive CRISTOFER (antinuclear antibody) R76.8 ??? Rheumatoid factor positive R76.8 ??? ILD (interstitial lung disease) J84.9 ??? Pulmonary fibrosis J84.10 Medications 11/21/21 1332 Medication Sig Taking? mycophenolate (CELLCEPT) 500 mg Tablet Take 1,000 mg by mouth 2 times daily. Yes Ofev 150 mg Capsule Take 150 mg by mouth every 12 hours as needed. Yes losartan-hydrochlorothiazide (HYZAAR) 50-12.5 mg Tablet Take 1 tablet by mouth daily. Yes diclofenac (Voltaren) 1 % Gel Apply topically 3 times daily as needed. Yes traMADoL (Ultram) 50 mg Tablet Take 1-2 tablets by mouth every 8 hours as needed for Pain. Yes aspirin 81 mg Tablet, Delayed Release (E.C.) Take 81 mg by mouth. Yes multivitamin with minerals Tablet Take 1 tablet by mouth daily. Yes lidocaine (LIDODERM) 5 % Adhesive Patch, Medicated Apply 1 patch onto the skin daily. (leave on for 12 hours and remove for 12 hours) Yes albuterol 90 mcg/actuation HFA Aerosol Inhaler Inhale 2 puffs into the lungs every 4 hours as neededfor Wheezing. Use with spacer Yes oxyCODONE (ROXICODONE) 5 mg Tablet Take 1-2 tablets by mouth every 4 hours as needed for Pain. No driving, no alcohol Yes desonide (DESOWEN) 0.05 % Lotion Prn Yes cyanocobalamin, vitamin B-12, 1,000 mcg/mL Solution every 30 days. Yes folic acid (FOLVITE) 1 mg Tablet take 1 tablet by mouth once daily sulindac (CLINORIL) 150 mg Tablet Take 1 tablet by mouth 2 times daily. With food. Patient not taking: Reported on 11/21/2021 Physical Exam: She is chronically ill-appearing, frail, bordering on cachectic. She appears to be short of breath while speaking, but again, her O2 sat on room air at rest is 100%. Blood pressure 147/83, pulse 94, resp. rate 22, height 152.4 cm (5'), weight 42.7 kg (94 lb 3.2 oz),SpO2 100 %. Skin: Clear. HEENT: Unremarkable. Mask in place. Lungs: Grossly abnormal with diminished breath sounds throughout, and dry crackles at the bases, especially on the right. She also has some tubular breath sounds in the upper posterior lung garcia Heart: Regular rhythm and rate without murmur, gallop, or rub. Abdomen: No masses or organomegaly. Nonspecific tenderness. Extremities: No edema. Good distal pulses. Musculoskeletal: She has obvious clubbing now. She has her background degenerative changes. There isno synovitis. Neuro: Grossly intact. Assessment: We had a long discussion about her situation. She seems to be holding her own, but it isvery hard to say without more objective data. Unfortunately, she has lost her local electrical service technician, Dr. Knight who was keeping a very close eye on her. We need to set her up with someone here urgentl y. We'll also get pulmonary function tests here and hopefully they can be done on the day of her pulmonology visit. She does intend to move closer to our hospital. That of course would make things easier her and her family, particularly her two daughters. We'll refer her urgently to pulmonology. We'll track down the missing information. We'll continue the CellCept. We'll plan on seeing her in 3 months, but we will stay in touch. Total time spent on this visit: 55 minutes. Visit code: 33106. Orders Placed This Encounter Procedures ??? Referral to Pulmonology ??? Pulmonary Function Testing Visit Diagnoses: 1. Lumbosacral spondylosis without myelopathy 2. Disorder of bursae and tendons in shoulder region 3. Primary osteoarthritis of hip, unspecified laterality 4. ILD (interstitial lung disease) 5. Positive CRISTOFER (antinuclear antibody) 6. Rheumatoid factor positive 7. Pulmonary fibrosis documented in this encounter Plan of Treatment Upcoming Encounters Date Type Specialty Care Team Description 05/28/2022 Appointment Pulmonology 05/28/2022 Office Visit Pulmonology Sonja Jenkins MD [facility] [address] [place], [place] [address] (Wo rk) Scheduled Orders Name Type Priority Associated Diagnoses Order S chedule Pulmonary Function PFT Routine ILD (interstitial lung Expected: 11/28/2021 Testing disease) (Approximate), Positive CRISTOFER (antinuclear Ex red: 05/30/2022 antibody) Rheumatoid factor positive Pulmonary fibrosis Scheduled Referrals Name Type Priority Associated Order Schedule Diagnoses Referral to Outpatient Referral Routine ILD (interstitial Ord ered: Pulmonology lung disease) 11/22/2021 Positive CRISTOFER (antinuclear antibody) Rheumatoid factor positive Pulmonary fibrosis documented as of this encounter Visit Diagnoses Diagnosis Lumbosacral spondylosis without myelopat hy Disorder of bursae and tendons in should er region Disorders of bursae and tendons in shoul jhon region, unspecified Primary osteoarthritis of hip, unspecifi ed laterality ILD (interstitial lung disease) Postinflammatory pulmonary fibrosis Positive CRISTOFER (antinuclear antibody) Other and unspecified nonspecific immuno logical findings Rheumatoid factor positive Other and unspecified nonspecific immuno logical findings Pulmonary fibrosis Postinflammatory pulmonary fibrosis documented in this encounter Care Teams Dialysis Clinical Manager Relationship Specialty Start Date End Date Rober Cho MD PCP - General Family Medicine 02/05/[address] [place] [phone] documented as of this encounter
--- OUTSIDE RECORDS SUMMARY | 2022-03-12 15:43 | XMS_ITS | Encounter Summary ---
:1950 Author Organization [place] [address] Care Team Providers Name Role Phone Rober Cho MD Primary Care Provider Encounter Details Date Type Department Care Team Description 12/31/2021 Telephone [place] [facility] Katie Mederos [facility] [place] [address] Social History Tobacco Use Types Packs/Day Years Used Date Never Smoker Smokeless Tobacco: Never Used Alcohol Use Standard Drinks/Week Comments No 0 (1 standard drink = 0.6 oz pure alcoho l) Sex Assigned at Date Recorded Not on file documented as of this encounter Miscellaneous Notes Telephone Encounter - Katie Mederos - 12/31/2021 3:30 PM EDT sched pft and supervisor dock w/ericka as per pt request pt aware dtl mailed her appt sheet documented in this encounter Plan of Treatment Upcoming Encounters Date Type Specialty Care Team Description 05/28/2022 Appointment Pulmonology 05/28/2022 Office Visit Pulmonology Sonja Jenkins MD [facility] er Pulmonary Mediczion powers [place], [place] [address] (Wo rk) documented as of this encounter Visit Diagnoses Not on filedocumented in this encounter Care Teams Surgical Scrub Technician Relationship Specialty Start Date End Date Rober Cho MD PCP - General Family Medicine 02/05/21 [address] [place] [phone] documented as of this encounter
--- OUTSIDE RECORDS SUMMARY | 2022-03-12 15:43 | XMS_ITS | Encounter Summary ---
:1950 Author Organization [facility] Address [facility] [address] [place] [address] Care Team Providers Name Role Phone Wanda Castillo Primary Care Provider Reason for Visit Reason Onset Date Comments Medication Refill 02/24/2020 Medication Refill 02/29/2020 Encounter Details Date Type Department Care Team Description 02/24/2020 Refill [place] [facility] [place]esham Dwyer MD [facility] [place] [phone] RHEUMATOLOGY DEPT. [phone] [place], [place] [address] (Wo rk) Social History Tobacco Use Types Packs/Day Years Used Date Never Smoker Smokeless Tobacco: Never Used Alcohol Use Standard Drinks/Week Comments No 0 (1 standard drink = 0.6 oz pure alcoho l) Sex Assigned at Date Recorded Not on file documented as of this encounter Miscellaneous Notes Telephone Encounter - Joel Washington RN - 02/25/2020 3:36 PM EDT Called PCP office regarding patient, left vm. Advised controlled substances should be ordered by one provider. Telephone Encounter - Joel Washington RN - 02/24/2020 3:16 PM EDT Spoke with patient, she states Dr. Bales ordered Oxycodone for her restless leg. Patient advised multiple providers may not fill controlled substances. Advised if Dr. Bales is going to ordered Oxycodone, she would need to contact for Tramadol as well. Patient states she will not take Oxycodone any further and would prefer to have Dr. Dwyer order Tramadol. Will update clinic provider. Telephone Encounter - Joel Washington RN - 02/24/2020 3:14 PM EDT Hesham Dwyer MD to Me ?? 02/24/20 3:11 PM Please call her and ask about it. Tell her only one provider should be writing for pain meds. Is going to write for the tramadol now that he's written for the oxycodone? Telephone Encounter - Joel Washington RN - 02/24/2020 11:25 AM EDT Oxycodone ordered by Dr. Bales 02/05 per PDMP. Telephone Encounter - Shanna Peralta LPN - 02/24/2020 10:29 AM EDT Pt called on prescription line requesting refill. Rx refill: Tramadol 50 mg tablet Last office visit: 11/23/2019, no future appt's scheduled Last refill: 12/28/2019 Shanna peralta LPN documented in this encounter Plan of Treatment Upcoming Encounters Date Type Specialty Care Team Description 05/28/2022 Appointment Pulmonology 05/28/2022 Office Visit Pulmonology Sonja Jenkins MD [facility] Pulmonary Medici [place] [address] (Wo rk) documented as of this encounter Visit Diagnoses Not on filedocumented in this encounter Care Teams Cloth Pattern Maker Relationship Specialty Start Date End Date Wanda Castillo PA PCP - General General Internal Medicine 05/16/17 1 [facility] [place] [address] documented as of this encounter
--- OUTSIDE RECORDS SUMMARY | 2022-03-12 15:43 | XMS_ITS | Encounter Summary ---
:1950 Author Organization [facility] [place] [address] Care Team Providers Name Role Phone Wanda Castillo Primary Care Provider Encounter Details Date Type Department Care Team Description 07/01/2019 Telephone [place] [facility] Pilar Conner [facility] [place] [address] Social History Tobacco Use Types Packs/Day Years [...] 05/28/2022 Office Visit Pulmonology Sonja Jenkins MD [facility] er Pulmonary Medici [place], [place] [address] (Wo rk) documented as of this encounter Visit Diagnoses Not on filedocumented in this encounter Care Teams Supervisor Cutting And Boning Relationship Specialty Start Date End Date Wanda Castillo PA PCP - General General Internal Medicine 05/16/[address] [place] [address] [place] [address] documented as of this encounter
--- OUTSIDE RECORDS SUMMARY | 2022-03-12 15:43 | XMS_ITS | Encounter Summary ---
:1950 Author Organization [facility] [place] [address] Care Team Providers Name Role Phone Wanda Castillo Primary Care Provider Reason for Visit Reason Onset Date Comments Labs Only 12/06/2019 Encounter Details Date Type Department Care Team Description 12/06/2019 Telephone Rheumatology at [facility] [place] [address] Social History Tobacco Use Types Packs/Day Years Used Date Never Smoker Smokeless Tobacco: Never Used Alcohol Use Standard Drinks/Week Comments No 0 (1 standard drink = 0.6 oz pure alcoho l) Sex Assigned at Date Recorded Not on file documented as of this encounter Miscellaneous Notes Telephone Encounter - Joel Washington RN - 12/16/2019 2:32 PM EDT Patient calls for refill of diclofenac, prescription has been routed to provider. Patient states she has had no further episodes of hematuria, did submit urine sample to provider (pcp) recently, denies any issues at the moment. Patient will contact clinic if any issues arise. Telephone Encounter - Joel Washington RN - 12/06/2019 4:12 PM EDT Images from the original note were not included. Hesham Dwyer MD Gavalakis, Rory A, RN ?? Please call her. Some but not all of her labs are back. Her urine has some blood in it. Has she everbeen told that before? Has she spoken with Dr. Knight since her phone visit with me? Let me knowwhat she says. We'll be in touch when all the results are back. Patient denies any hx of blood in urine, states no fever or chills or burning with urination. Deniesany hx of kidney stones, although mention family hx of kidney issues. Spoke with Dr. Knight, states will be called on Friday regarding labs. Patient states had a couple episodes of what appeared to be blood in urine, but has had no further incidences. She will monitor for any continued issues regarding and contact provider if they return. documented in this encounter Plan of Treatment Upcoming Encounters Date Type Specialty Care Team Description 05/28/2022 Appointment Pulmonology 05/28/2022 Office Visit Pulmonology Sonja Jenkins MD [facility] er Pulmonary Mediczion [place], [place] [address] (Wo rk) documented as of this encounter Visit Diagnoses Not on filedocumented in this encounter Care Teams Patternmaker Plastics Relationship Specialty Start Date End Date Wanda Castillo PA PCP - General General Internal Medicine 05/16/[address] [place] [address] [place] [address] documented as of this encounter
--- OUTSIDE RECORDS SUMMARY | 2022-03-12 15:43 | XMS_ITS | Encounter Summary ---
:1950 Author Organization [place] [address] Care Team Providers Name Role Phone Wanda Castillo Primary Care Provider Reason for Visit Reason Onset Date Comments Medication Refill 10/25/2019 Encounter Details Date Type Department Care Team Description 10/25/2019 Refill Rheumatology at [facility] oJel Washington, [facility] [place] [address] Social History Tobacco Use Types Packs/Day Years Used Date Never Smoker Smokeless Tobacco: Never Used Alcohol Use Standard Drinks/Week Comments No 0 (1 standard drink = 0.6 oz pure alcoho l) Sex Assigned at Date Recorded Not on file documented as of this encounter Miscellaneous Notes Telephone Encounter - Joel Washington RN - 10/25/2019 6:12 PM EDT Requests [facility] in [place]. documented in this encounter Plan of Treatment Upcoming Encounters Date Type Specialty Care Team Description 05/28/2022 Appointment Pulmonology 05/28/2022 Office Visit Pulmonology Sonja Jenkins MD [facility] er Pulmonary Nataliya powers [place], [place] [address] (Wo rk) documented as of this encounter Visit Diagnoses Not on filedocumented in this encounter Care Teams Sash Sticker Relationship Specialty Start Date End Date Wanda Castillo PA PCP - General General Internal Medicine 05/16/17 1 [facility] [place] [address] documented as of this encounter
--- OUTSIDE RECORDS SUMMARY | 2022-03-12 15:43 | XMS_ITS | Encounter Summary ---
:1950 Author Organization [facility] [place] [address] Care Team Providers Name Role Phone Rober Cho MD Primary Care Provider Reason for Visit Reason Comments Specialty Pharmacy Review Encounter Details Date Type Department Care Team Description 12/07/2021 Specialty Pharmacy Pharm[facility] [place] [facility] [place] [address] Social History Tobacco Use Types Packs/Day Years Used Date Never Smoker Smokeless Tobacco: Never Used Alcohol Use Standard Drinks/Week Comments No 0 (1 standard drink = 0.6 oz pure alcoho l) Sex Assigned at Date Recorded Not on file documented as of this encounter Progress Notes Ade Villagomez - 12/07/2021 11:59 PM EDT The [facility] has completed a benefits investigation for Ashley Da Silva to review theireligibility to fill at [facility]. Per patient's medication list they are prescribed Ofev 150 mg Capsule and the medication is able to be filled at the [facility]. [facility]nita [facility] RPH - 12/07/2021 11:59 PM EDT Patient no-showed appointment with physician. documented in this encounter Plan of Treatment Upcoming Encounters Date Type Specialty Care Team Description 05/28/2022 Appointment Pulmonology 05/28/2022 Office Visit Pulmonology Sonja Jenkins MD [facility] er Pulmonary Mediczion [place], [place] [address] (Wo rk) documented as of this encounter Visit Diagnoses Not on filedocumented in this encounter Care Teams Technology Applications Engineer Relationship Specialty Start Date End Date Rober Cho MD PCP - General Family Medicine 02/05/[address] [place] [phone] documented as of this encounter
--- OUTSIDE RECORDS SUMMARY | 2022-03-12 15:43 | XMS_ITS | Encounter Summary ---
:1950 Author Organization [place] [address] Care Team Providers Name Role Phone Wanda Castillo Primary Care Provider Encounter Details Date Type Department Care Team Description 07/27/2020 Ancillary Procedure Radiology Library at Evangelista Cho [facility] [address] [id number] [phone] Social History Tobacco Use Types Packs/Day Years [...] 05/28/2022 Office Visit Pulmonology Sonja Jenkins MD [facility] Pulmonary Mediczion [place], [place] [address] (Wo rk) documented as of this encounter Procedures Procedure Name Priority Date/Time Associated Diagnosis Comme nts FILM LIBRARY Routine 07/27/2020 12:00 AM Results for this STORAGE ONLY CT EST procedure ar e in CHEST the results section. documented in this encounter Results Film Library- Storage Only CT Chest (07/27/2020 12:00 AM EST) Specimen (Source) Anatomical Location Collection Method / Collectio n Time Received Time / Laterality Volume Narrative RAD - 11/26/2021 9:30 AM EDT This exam is auto-finalizing. It's purpo se is for storage only. Rober Cho MD IMG FILM LIBRARY ORDERABLES Performing Organization Address City/State/ZIP Code Phon e Number [place], [place] documented in this encounter Visit Diagnoses Not on filedocumented in this encounter Care Teams Wood Science Professor Relationship Specialty Start Date End Date Wanda Castillo PA PCP - General General Internal Medicine 05/16/[address] [facility] [address] [place] [address] documented as of this encounter
--- OUTSIDE RECORDS SUMMARY | 2022-03-12 15:43 | XMS_ITS | Encounter Summary ---
:1950 Author Organization [facility] [place] [address] Care Team Providers Name Role Phone Wanda Castillo Primary Care Provider Reason for Visit Reason Onset Date Comments Other 09/22/2019 Encounter Details Date Type Department Care Team Description 09/22/2019 Telephone Rheumatology at [facility] [place] [address] Social History Tobacco Use Types Packs/Day Years Used Date Never Smoker Smokeless Tobacco: Never Used Alcohol Use Standard Drinks/Week Comments No 0 (1 standard drink = 0.6 oz pure alcoho l) Sex Assigned at Date Recorded Not on file documented as of this encounter Miscellaneous Notes Telephone Encounter - Joel Washington RN - 09/24/2019 9:19 AM EST Images from the original note were not included. Hesham Dwyer MD Gavalakis, Rory A RN Caller: Unspecified (2 days ago, 12:46 PM) ?? Yes, I've had some communications. We'll get her in. Telephone Encounter - Joel Washington RN - 09/22/2019 3:23 PM EST Seen by director fraud (Dr. Lobato) in [place]. 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 Breathing is good at the moment, started new medication which has been helping (OFEV?? (nintedanib)). Does get sob with activity and cough. No current pain. No fever or chills. No c/p. States Comparator Operator would like patient to be seen ARELY, was going to call clinic. Will request notes and update clinic provider. documented in this encounter Plan of Treatment Upcoming Encounters Date Type Specialty Care Team Description 05/28/2022 Appointment Pulmonology 05/28/2022 Office Visit Pulmonology Sonja Jenkins MD [facility] Pulmonary Medici ne [place], [place] [address] (Wo rk) documented as of this encounter Visit Diagnoses Not on filedocumented in this encounter Care Teams White Sugar Boiler Relationship Specialty Start Date End Date Wanda Castillo PA PCP - General General Internal Medicine 05/16/[address] [place] [address] [place] [address] documented as of this encounter
--- OUTSIDE RECORDS SUMMARY | 2022-03-12 15:43 | XMS_ITS | Encounter Summary ---
:1950 Author Organization [facility] [place] [address] Care Team Providers Name Role Phone Wanda Castillo Primary Care Provider Reason for Visit Reason Onset Date Comments Questions 08/04/2019 Encounter Details Date Type Department Care Team Description 08/04/2019 Telephone Rheumatology at [facility] Qiana Yang RN Questions [facility] [place] [address] Social History Tobacco Use Types Packs/Day Years Used Date Never Smoker Smokeless Tobacco: Never Used Alcohol Use Standard Drinks/Week Comments No 0 (1 standard drink = 0.6 oz pure alcoho l) Sex Assigned at Date Recorded Not on file documented as of this encounter Miscellaneous Notes Telephone Encounter - Qiana Yang RN - 08/04/2019 2:20 PM EST Images from the original note were not included. Hesham Dwyer MD Vlahos, Elaina, SIENA Caller: Unspecified (Yesterday, ??3:53 PM) ?? Yes, that's fine! Mathew Called patient's pharmacy and gave them permission to refill Ashley's Tramadol 1 day early. Patient updated. She was very thankful for this as she was worried that the pharmacist was leaving at 3pm. I welcomed her to call back at anytime if needed. Telephone Encounter - Qiana Yang RN - 08/04/2019 10:23 AM EST Patient calls stating she had her lung biopsy done this past Friday (07/28) at [facility]. She was admitted and had a chest tube temporarily from 07/28-07/31. She is now home and healing, but Ashley reports that she was taking her Tramadol 2 tablets every 7 hours instead of every 8 hours due to increased pain post-op. She is now back to taking 1-2 tablets every 8 hours but ran out of Tramadol early because of temporarily increasing the frequency. Ashley's pharmacy will not process her refill until tomorrow (08/05) unless we give them permission tofill it today. Ashley is completely out of Tramadol and is wondering if would give her permission to fill today. I will ask and call Ashley/her pharmacy when I receive a response. Ashley thanked me for the assistance and was in agreement with this plan. documented in this encounter Plan of Treatment Upcoming Encounters Date Type Specialty Care Team Description 05/28/2022 Appointment Pulmonology 05/28/2022 Office Visit Pulmonology Sonja Jenkins MD [facility] Pulmonary Mediczion powers [place], [place] [address] (Wo rk) documented as of this encounter Visit Diagnoses Not on filedocumented in this encounter Care Teams Label Stitcher Relationship Specialty Start Date End Date Wanda Castillo PA PCP - General General Internal Medicine 05/16/[address] [place] [address] [place] [address] documented as of this encounter
--- OUTSIDE RECORDS SUMMARY | 2022-03-12 15:43 | XMS_ITS | Encounter Summary ---
:1950 Author Organization [facility] [place] [address] Care Team Providers Name Role Phone Rober Cho MD Primary Care Provider Encounter Details Date Type Department Care Team Description 07/31/2021 Telephone Rheumatology at [facility] [place] [address] Social History Tobacco Use Types Packs/Day Years Used Date Never Smoker Smokeless Tobacco: Never Used Alcohol Use Standard Drinks/Week Comments No 0 (1 standard drink = 0.6 oz pure alcoho l) Sex Assigned at Date Recorded Not on file documented as of this encounter Miscellaneous Notes Telephone Encounter - Danica Green - 07/31/2021 12:46 PM EST Previously pt's daughter Marimar called to ask we put pt on Dr. Dwyer's waiting list for a sooner appt due to symptoms. Messaged Dr. Dwyer, he suggests pt speak with PCP about being referred to a neurologist. Tried to call back Ashley twice but no coal picker and VM is full. Tried to call Marimar at # on file, called twice, but line is disconnected after 1 ring with no VM option. Notified provider. documented in this encounter Plan of Treatment Upcoming Encounters Date Type Specialty Care Team Description 05/28/2022 Appointment Pulmonology 05/28/2022 Office Visit Pulmonology Sonja Jenkins MD [facility] Pulmonary Medici [place], [place] [address] (Wo rk) documented as of this encounter Visit Diagnoses Not on filedocumented in this encounter Care Teams Educational Consultant Relationship Specialty Start Date End Date Rober Cho MD PCP - General Family Medicine 02/05/[address] [place] [phone] documented as of this encounter
--- OUTSIDE RECORDS SUMMARY | 2022-03-12 15:43 | XMS_ITS | Encounter Summary ---
:1950 Author Organization [facility] [place] [address] Care Team Providers Name Role Phone Wanda Castillo Primary Care Provider Encounter Details Date Type Department Care Team Description 09/05/2020 TH Visit Rheumatology [place] [facility] Hesham Dwyer; (TeleHealth) [facility] MD Nell ILD (interstitial lung disease); [facility] Primary osteoarthritis invol ving multiple joints; [place], [place] Pulmonary fibrosis; [id number] RHE[address]AT[address] DEPT. Weight loss [phone] [place], [place] [address] (Wo rk) Social History Tobacco Use Types Packs/Day Years Used Date Never Smoker Smokeless Tobacco: Never Used Alcohol Use Standard Drinks/Week Comments No 0 (1 standard drink = 0.6 oz pure alcoho l) Sex Assigned at Date Recorded Not on file documented as of this encounter Progress Notes Hesham Dwyer MD - 09/05/2020 2:00 PM EST Rheumatology Clinic: Dr. Dwyer 09/05/2020 [id number] This is a TeleHealth telephone visit for Ashley Da Silva in follow-up of her widespread osteoarthritis, fibromyalgia, chronic musculoskeletal pain, and more recently an ILD thought possibly related to an underlying connective tissue disease. Please see our last note from a telephone visit on 11/23/2019 for details. She has been following very carefully with Dr. Netta Knight, the net repairer up in [facility] for this issue. The details of her extensive work-up are in that last note. By the timeI saw the patient in follow-up, she was already on nintedanib as an antifibrotic agent. The questionwas whether she had an underlying connective tissue disease, and if so, should we add an immunosuppressive agent to her regimen. After consideration, we decided to go ahead and treat the possibility ofan underlying inflammatory process driving the fibrosis without definite evidence. The drug we chosewas mycophenolate. She started out at 500 mg a day and has gradually increased up to 1000 mg twice a day, the target dose. For the most part, she has been tolerating that very well. She says her breathing has been better, although she sounds somewhat short of breath on the phone. She is able to do tasks around her home within limits. For some reason, if she bends over that negatively impacts her breathing. She continues to follow with Dr. Knight, and she wants the patient to get the COVID-19 vaccine soon. I told her I agreed completely with that. Apparently she had a follow-up CT scan in July that showed stable changes with no further progression. This is by the patient's account. We don'thave test of the images or the report today. On a very positive front, her weight now is up to 126 pounds. She had gotten down as low as 87 pounds. In terms of side effects, she has had some swelling and flushing immediately after she takes her MMF. Also for the past 2 weeks, she has had some nausea, vomiting, and diarrhea. This has included some dry heaves. No one else at home is sick. She cut out her protein supplement, Boost, and that seemedto help after being off it for a few days. She then went back on and the symptoms returned, particularly the diarrhea. I told her in my mind, at least, that suggests that the Boost is at least part of the problem and I encouraged her to hold it for a longer period of time and slowly reintroduce it again. She'll discuss it further with Dr. Knight or Chloe Barrett PA-C, her primary. Perhaps a more troubling symptom is a progressive tremor that affects her left hand much worse than her right. This is probably related to the MMF. She has not been tried on anything for this such as a beta-frandy.I'm not sure if that would be acceptable in light of her other serious medical problems. It is more academic than anything, as she really does not want to go on any more medications, despite the unpleasantness of the tremor. In addition, she seems reluctant to back off the MMF to see if the tremors improve. She is pretty happy with the way things are going now, which is remarkable in and of itself, and so she would not like to rock the boat. On another positive front, this time socially, her son and his have moved out of her home, as has her youngest daughter. With that, there has been a reduction in a lot of the drama at home when her children would argue amongst each other. She finds now that she can relax more. Only her younger daughter Marimar still lives with her and there is no problems there. And added benefit is the house is a lot commercial or institutional cleaner than when the others lived there. In terms of the pandemic, no one has gotten the virus. There has been a local uptick in infections, although the [place] area where she lives is not as bad as some others. As mentioned, her new PCP is Chloe Barrett in [place], [place]. Dr. Knight keeps track of her lab work. She believes her last set was in in July and looked okay. She gets her lab work done in [facility]. Dr. Knight's office is up in [place], only about 20 minutes from her home. Patient Active Problem List Diagnosis Code ??? Disorder of bursae and tendons in shoulder region M71.9, M67.919 ??? Primary osteoarthritis of left hand M19.042 ??? Osteoarthrosis, unspecified whether generalized or localized, lower leg M17.10 ??? Back pain M54.9 ??? Lumbar degenerative [...] M19.041 ??? Primary osteoarthritis involving multiple joints M89.49 ??? Ankle fracture, left S82.892A ??? Dysphagia R13.10 ??? Arthralgia M25.50 ??? Low ferritin R79.0 ??? Folate deficiency E53.8 ??? Vitamin B deficiency E53.9 ??? Fibromyalgia M79.7 ??? Pain R52 ??? Positive CRISTOFER (antinuclear antibody) R76.8 ??? Rheumatoid factor positive R76.8 ??? ILD (interstitial lung disease) J84.9 ??? Pulmonary fibrosis J84.10 Medications 05/25/19 1043 Medication Sig Taking? traMADoL (Ultram) 50 mg Tablet Take 1-2 tablets by mouth every 8 hours as needed for Pain. diclofenac (Voltaren) 1 % Gel Apply 2 g topically 4 times daily. aspirin 81 mg Tablet, Delayed Release (E.C.) Take 81 mg by mouth. folic acid (FOLVITE) 1 mg Tablet take 1 tablet by mouth once daily sulindac (CLINORIL) 150 mg Tablet Take 1 tablet by mouth 2 times daily. With food. multivitamin with minerals Tablet Take 1 tablet by mouth daily. lidocaine (LIDODERM) 5 % Adhesive Patch, Medicated Apply 1 patch onto the skin daily. (leave on for 12 hours and remove for 12 hours) albuterol 90 mcg/actuation HFA Aerosol Inhaler Inhale 2 puffs into the lungs every 4 hours as neededfor Wheezing. Use with spacer oxyCODONE (ROXICODONE) 5 mg Tablet Take 1-2 tablets by mouth every 4 hours as needed for Pain. No driving, no alcohol desonide (DESOWEN) 0.05 % Lotion Prn cyanocobalamin, vitamin B-12, 1,000 mcg/mL Solution every 30 days. Physical Exam: Phone visit only. She sounds well on the phone. She is in much better spirits and seems more comfortable than she did on the last phone visit in November. She still has some dyspnea on speaking. Assessment: We had a long discussion about her situation, but basically she is doing much better. She has just recently developed some GI issues. That always raises the specter of MMF toxicity. In terms of the GI issues, though, when she stopped her Boost protein supplement drink for a couple of days,things improved. I told her I think that is the least part of the problem and she should back off that again and see what happens. She should also be in touch with either Chloe Barrett or Dr. Knight about this issue. In addition, she has a left much greater than right hand tremor that is most likely related to MMF. She is accepting of that and doesn't want to go on any medication for it or to back off on the MMF. Things are going too well for her now to take a chance and stir things up, and that is understandable. She says that Dr. Knight is keeping close track on her lab work and that lynda had a set of labs last month. We'll try and track those down. Otherwise, I'll see her in follow-up in 6 months. She knows she can contact us in the interim if shehas any problems. Visit Diagnoses: 1. Fibromyalgia 2. ILD (interstitial lung disease) 3. Primary osteoarthritis involving multiple joints 4. Pulmonary fibrosis 5. Weight loss Total phone time: 20 min, 58 sec. Total visit time: >40 minutes. Visit level: 88881. documented in this encounter Plan of Treatment Upcoming Encounters Date Type Specialty Care Team Description 05/28/2022 Appointment Pulmonology 05/28/2022 Office Visit Pulmonology Sonja Jenkins MD [facility] Pulmonary Medici [place], [place] [address] (Wo rk) documented as of this encounter Visit Diagnoses Diagnosis Fibromyalgia Mylagia and myositis, unspecified ILD (interstitial lung disease) Postinflammatory pulmonary fibrosis Primary osteoarthritis involving multipl e joints Pulmonary fibrosis Postinflammatory pulmonary fibrosis Weight loss Loss of weight documented in this encounter Care Teams Citrus Peeler Relationship Specialty Start Date End Date Wanda Castillo PA PCP - General General Internal Medicine 05/16/17 1 [facility] [place] [address] documented as of this encounter
--- OUTSIDE RECORDS SUMMARY | 2022-03-12 15:43 | XMS_ITS | Encounter Summary ---
:1950 Author Organization [facility] [place] [address] Care Team Providers Name Role Phone Wanda Castillo Primary Care Provider Reason for Visit Reason Comments Medication Refill Encounter Details Date Type Department Care Team Description 12/19/2020 Refill Rheumatology at [facility] Hesham Dwyer, Lumbosacral spondylosis with out myelopathy; [facility] Disorder of bursae and tendons in should er region; [facility] Primary osteoarthritis of hip, [place] [address] RHEUMATOLOGY DEPT. [phone] [place], [place] [address] (Wo rk) Social History Tobacco [...] Pulmonology Sonja Jenkins MD [facility] er Pulmonary Medici ne [place], [place] [address] (Wo rk) documented as of this encounter Visit Diagnoses Diagnosis Lumbosacral spondylosis without myelopat hy Disorder of bursae and tendons in should er region Disorders of bursae and tendons in shoul jhon region, unspecified Primary osteoarthritis of hip, unspecifi ed laterality documented in this encounter Care Teams Bank Vault Attendant Relationship Specialty Start Date End Date Wanda Castillo PA PCP - General General Internal Medicine 05/16/17 1 [facility] [place] [address] documented as of this encounter
--- OUTSIDE RECORDS SUMMARY | 2022-03-12 15:43 | XMS_ITS | Encounter Summary ---
:1950 Author Organization [place] [address] Care Team Providers Name Role Phone Wanda Castillo Primary Care Provider Reason for Visit Reason Onset Date Comments Medication Refill 12/28/2019 Encounter Details Date Type Department Care Team Description 12/28/2019 Refill Rheumatology at [facility] Zari Maldonado, [place] [address] Social History Tobacco Use Types Packs/Day Years Used Date Never Smoker Smokeless Tobacco: Never Used Alcohol Use Standard Drinks/Week Comments No 0 (1 standard drink = 0.6 oz pure alcoho l) Sex Assigned at Date Recorded Not on file documented as of this encounter Miscellaneous Notes Telephone Encounter - Zari Maldonado RN - 12/28/2019 4:00 PM EDT Ashley calls multiple times for refill of Tramadol. States she is out of Tramadol and pharmacy closes at 6 pm. RTC and LM that Rx has been pended and I am waiting for provider to sign off on the prescription. Am hoping this will be done today, but may not be done until tomorrow. documented in this encounter Plan of Treatment Upcoming Encounters Date Type Specialty Care Team Description 05/28/2022 Appointment Pulmonology 05/28/2022 Office Visit Pulmonology Sonja Jenkins MD [facility] Pulmonary Mediczion powers [place], [place] [address] (Wo rk) documented as of this encounter Visit Diagnoses Not on filedocumented in this encounter Care Teams Wheel Setter Relationship Specialty Start Date End Date Wanda Castillo PA PCP - General General Internal Medicine 05/16/17 1 [facility] [place] [address] documented as of this encounter
--- OUTSIDE RECORDS SUMMARY | 2022-03-12 15:43 | XMS_ITS | Encounter Summary ---
:1950 Author Organization [facility] [place] [address] Care Team Providers Name Role Phone Wanda Castillo Primary Care Provider Encounter Details Date Type Department Care Team Description 06/19/2020 Hospital Encounter Laboratory [facility] [place] [address] Social History Tobacco Use Types Packs/Day Years Used Date Never Smoker Smokeless Tobacco: Never Used Alcohol Use Standard Drinks/Week Comments No 0 (1 standard drink = 0.6 oz pure alcoho l) Sex Assigned at Date Recorded Not on file documented as of this encounter Medications at Time of Discharge Medication Sig Dispensed Refills Start Date End Date traMADoL (Ultram) 50 mg Take 1-2 tablets by 180 tablet 0 Tablet mouth every 8 hours as needed for Pain. aspirin 81 mg Tablet, Take 81 mg by 0 11/04/2016 Delayed Release (E.C.) mouth. folic acid (FOLVITE) 1 mg take 1 tablet by 0 05/18 Tablet mouth once daily sulindac (CLINORIL) 150 Take 1 tablet by 60 tablet 5 2017 mg TabletIndications: mouth 2 times Primary osteoarthritis daily. With food. involving multiple joints, Lumbosacral spondylosis without myelopathy, Back pain, unspecified back location, unspecified back pain laterality, unspecified chronicity, Fibromyalgia, Pain in right hip, Disorder of bursae and tendons in shoulder region, Primary osteoarthritis of hip, unspecified laterality multivitamin with Take 1 tablet by 0 minerals Tablet mouth daily. lidocaine (LIDODERM) 5 % Apply 1 patch onto 30 patch 11 09/2016 Adhesive Patch, the skin daily. MedicatedIndications: (leave on for 12 Lumbar degenerative disc hours and remove disease, Back pain, for 12 hours) unspecified back location, unspecified back pain laterality, unspecified chronicity albuterol 90 Inhale 2 puffs into 1 Inhaler 1 05/19/2017 mcg/actuation HFA Aerosol the lungs every 4 InhalerIndications: MILLER hours as needed for (dyspnea on exertion) Wheezing. Use with spacer oxyCODONE (ROXICODONE) 5 Take 1-2 tablets by 20 tablet 0 mg Tablet mouth every 4 hours as needed for Pain. No driving, no alcohol desonide (DESOWEN) 0.05 % Prn 0 05/04/2014 Lotion cyanocobalamin, vitamin every 30 days. 0 06/20/20 14 B-12, 1,000 mcg/mL Solution diclofenac (Voltaren) 1 % Apply 2 g topically 100 g 11 0 12/16/2019 12/19/2020 GelIndications: 4 times daily. Lumbosacral spondylosis without myelopathy, Disorder of bursae and tendons in shoulder region, Primary osteoarthritis of hip, unspecified laterality documented as of this encounter Plan of Treatment Upcoming Encounters Date Type Specialty Care Team Description 05/28/2022 Appointment Pulmonology 05/28/2022 Office Visit Pulmonology Sonja Jenkins MD [facility] er Pulmonary [place] [id number] (Wo rk) documented as of this encounter Procedures Procedure Name Priority Date/Time Associated Diagnosis Comme nts COVID-19 PCR Routine 06/19/2020 9:02 AM Results f or this EST procedure are i n the results section . documented in this encounter Results COVID-19 PCR (06/19/2020 9:02 AM EST) [facility] Method Time Signature SARS-CoV-2 Not Detected Not Detected [facility] Comment: This result should be interpreted in com bination with the clinical observations, patient history and epidem iological information in making a final diagnosis. For testing of asymptomatic i ndividuals, assay performance characteristics and clinical utility hav e not been evaluated. Testing for SARS-CoV-2 (Severe acute respiratory syn drome coronavirus 2, formerly known as 2019 novel coronavirus or 2019-nCoV) to aid in the diagnosis of COVID-19 is performed using the [employer] RealTime SARS -CoV-2 Assay as authorized by the FDA Emergency Use Authorization (EUA). This EUA assay is intended for In-vitro Diagnostic (IVD) use with respiratory sp ecimens such as nasopharyngeal swabs collected from individuals during the ac nayeli phase of infection. This assay is performed based on the instructions for use provided by [employer] and additional guidance provided by CDC and FDA. Testing is performed in the [facility] within the Department of Pathology and Laboratory Medicine at [facility], certified under the Clinical Laboratory Improvement Amendments of 1988 (CLIA), 42 U.S.C. 263a, to perform high complexi ty tests. Assay performance has been verified according to clinical laborator y regulatory requirements for use with specimens collected from individuals valerie pected of COVID-19. Test results are provided above. A result of ? Not Detected? indicates that the viral RNA target is not present above the limit of detect ion, but does not preclude SARS-CoV-2 infection. False negative results may oc cur if a specimen is improperly collected, transported or handled; if am plification inhibitors are present; or if inadequate numbers of viral particles are present in the specimen. When a diagnostic test is negative, the possibi lity of a false negative result should be considered in the context of a patien t? s recent exposures and the presence of clinical signs and symptoms consisten t with COVID-19. A result of ? Detected? indicates that RNA from SARS-CoV-2 was d etected and the patient is infected. As required or requested by public health a uthorities, positive specimens may be sent for additional testing. Positive an d negative predictive values for this test are highly dependent on disease pre valence. A result of ? Invalid? indicates that neither the viral RNA tar gets nor the internal control target was detected. An invalid result suggests the presence of inhibitors. Recollection and re-testing is recommend ed in the case of an invalid result. CDC COVID-19 criteria for testing on hum an specimens and clinical management guidance information are available at th e CDC Coronavirus Disease 2019 (COVID-19) webpage under ? Information for Healthcare Professionals? (https://www.cdc.gov/coronavirus/2019-nc ov/hcp/index.html) Additional information about this and ot her EUA tests can be found in provider and patient fact sheets at the following FDA website: https://www.fda.gov/medical-devices/gewnlbjnpqs-iwaqria-7552-mlhxg-69-shiekcecd- mmy-msiwhluqlbtpml-iozxgpy-devices/lvoyx-dlozjeqpooh-kwal SARS-Cov-2 RNA Source [employer] Swab [facility] Specimen (Source) Anatomical Collection Method Collection Time Re ceived Time Location / / Volume Laterality Nasopharyngeal swab Other / Unknown 06/19/2020 9:02 (specimen) AM EST 11:34 PM EST Resulting Agency Comment Spec In Lab Billy Acosta MD MICROBIOLOGY - GENERAL ORDER [place] Performing Organization Address City/State/Z[place] [address] documented in this encounter Visit Diagnoses Not on filedocumented in this encounter Care Teams Drying Tumbler Operator Relationship Specialty Start Date End Date Wanda Castillo PA PCP - General General Internal Medicine 05/16/[address] [place] [address] [place] [address] documented as of this encounter
--- OUTSIDE RECORDS SUMMARY | 2022-03-12 15:43 | XMS_ITS | Encounter Summary ---
:1950 Author Organization [facility] [address] Care Team Providers Name Role Phone Wanda Castillo Primary Care Provider Reason for Visit Reason Onset Date Comments Prior Authorization 12/20/2020 Encounter Details Date Type Department Care Team Description 12/20/2020 Telephone Endocrinology at [facility] [place] [address] Social History Tobacco Use Types Packs/Day Years Used Date Never Smoker Smokeless Tobacco: Never Used Alcohol Use Standard Drinks/Week Comments No 0 (1 standard drink = 0.6 oz pure alcoho l) Sex Assigned at Date Recorded Not on file documented as of this encounter Miscellaneous Notes Telephone Encounter - Leslie Mora - 12/20/2020 8:29 AM EDT Medication Prior Authorization [place] Medication name/dose/directions: Diclofenac 1% - apply 2g four times daily Rationale for request: OA Health plan: [facility] ([facility]) Authorizing human resources hr representative name: Holley Sent to health plan on: 12/20/20 Health plan decision: Approved Quantity approved: Authorization number: Start date: 09/21/20 End date: 12/20/21 documented in this encounter Plan of Treatment Upcoming Encounters Date Type Specialty Care Team Description 05/28/2022 Appointment Pulmonology 05/28/2022 Office Visit Pulmonology Sonja Jenkins MD [facility] Pulmonary Medici ne [place], [place] [address] (Wo rk) documented as of this encounter Visit Diagnoses Not on filedocumented in this encounter Care Teams Pattern Drum Maker Relationship Specialty Start Date End Date Wanda Castillo PA PCP - General General Internal Medicine 05/16/17 1 [facility] [place] [address] documented as of this encounter
--- OUTSIDE RECORDS SUMMARY | 2022-03-12 15:43 | XMS_ITS | Encounter Summary ---
:1950 Author Organization [facility] [place] [address] Care Team Providers Name Role Phone Wanda Castillo Primary Care Provider Reason for Visit Reason Onset Date Comments Medication Refill 08/25/2019 Encounter Details Date Type Department Care Team Description 08/25/2019 Refill Rheumatology at [facility] Zari Maldonado, RN [facility] [place] [address] Social History Tobacco Use Types Packs/Day [...] 05/28/2022 Office Visit Pulmonology Sonja Jenkins MD [facility] er Pulmonary Medici ne [place], [place] [address] (Wo rk) documented as of this encounter Visit Diagnoses Not on filedocumented in this encounter Care Teams Process Control Board Operator Relationship Specialty Start Date End Date Wanda Castillo PA PCP - General General Internal Medicine 05/16/[address] [place] [address] [place] [address] documented as of this encounter
--- OUTSIDE RECORDS SUMMARY | 2022-03-12 15:43 | XMS_ITS | Encounter Summary ---
:1950 Author Organization [facility] Address [address] [place] [address] Care Team Providers Name Role Phone Rober Cho MD Primary Care Provider Encounter Details Date Type Department Care Team Description 11/23/2021 Orders Only [place] [facility] [place]ja Jenkins MD ILD (interstitial lung [facility] dis ease) [place] [address] Pulmonary Medicine [phone] [place], [place] [address] Social History Tobacco Use Types Packs/Day Years [...] Sonja Jenkins MD [facility] er Pulmonary Mediczion ne [place], [place] [address] (Wo rk) Scheduled Orders Name Type Priority Associated Diagnoses Order S chedule Pulmonary Function PFT Routine ILD (interstitial lung Expected: 11/23/2021, Testing disease) Expires: 2022 documented as of this encounter Visit Diagnoses Diagnosis ILD (interstitial lung disease) Postinflammatory pulmonary fibrosis documented in this encounter Care Teams Traveling Sales Executive Relationship Specialty Start Date End Date Rober Cho MD PCP - General Family Medicine 02/05/21 [address] [place] [address] documented as of this encounter
--- OUTSIDE RECORDS SUMMARY | 2022-03-12 15:43 | XMS_ITS | Encounter Summary ---
:1950 Author Organization [facility] [place] [address] Care Team Providers Name Role Phone Wanda Castillo Primary Care Provider Reason for Visit Reason Onset Date Comments Labs Only 11/29/2019 Encounter Details Date Type Department Care Team Description 11/29/2019 Telephone [place] [facility] Joel Washington RN Labs Only [facility] [place] [address] Social History Tobacco Use Types Packs/Day Years Used Date Never Smoker Smokeless Tobacco: Never Used Alcohol Use Standard Drinks/Week Comments No 0 (1 standard drink = 0.6 oz pure alcoho l) Sex Assigned at Date Recorded Not on file documented as of this encounter Miscellaneous Notes Telephone Encounter - Joel Washington RN - 11/29/2019 12:02 PM EDT [facility] for labs, faxed. documented in this encounter Plan of Treatment Upcoming Encounters Date Type Specialty Care Team Description 05/28/2022 Appointment Pulmonology 05/28/2022 Office Visit Pulmonology Sonja Jenkins MD [facility] er Pulmonary Nataliya powers [place], [place] [address] (Wo rk) documented as of this encounter Visit Diagnoses Not on filedocumented in this encounter Care Teams Refractory Grinder Operator Relationship Specialty Start Date End Date Wanda Castillo PA PCP - General General Internal Medicine 05/16/17 1 [facility] [place] [address] documented as of this encounter
--- OUTSIDE RECORDS SUMMARY | 2022-03-12 15:43 | XMS_ITS | Encounter Summary ---
:1950 Author Organization [facility] [place] [address] Care Team Providers Name Role Phone Rober Cho MD Primary Care Provider Encounter Details Date Type Department Care Team Description 11/26[facility]20[facility] [place] [address] Social History Tobacco Use Types Packs/Day Years [...] 05/28/2022 Office Visit Pulmonology Sonja Jenkins MD [facility] Pulmonary Medici [place], [place] [address] (Wo rk) documented as of this encounter Visit Diagnoses Not on filedocumented in this encounter Care Teams Emergency Room Doctor Relationship Specialty Start Date End Date Rober Cho MD PCP - General Family Medicine 02/05/[address] [place] [phone] documented as of this encounter
--- OUTSIDE RECORDS SUMMARY | 2022-03-12 15:43 | XMS_ITS | Encounter Summary ---
:1950 Author Organization [facility] [place] [address] Care Team Providers Name Role Phone Wanda Castillo Primary Care Provider Encounter Details Date Type Department Care Team Description 01/12/2020 Ancillary Procedure Radiology Library at Evangelista Cho [facility] [address] [id number] [phone] Social History Tobacco Use Types Packs/Day Years [...] 05/28/2022 Office Visit Pulmonology Sonja Jenkins MD [facility] Pulmonary Mediczion [place], [place] [address] (Wo rk) documented as of this encounter Procedures Procedure Name Priority Date/Time Associated Diagnosis Comme nts FILM LIBRARY Routine 01/12/2020 12:00 AM Results for this STORAGE ONLY CT EDT procedure ar e in CHEST the results section. documented in this encounter Results Film Library- Storage Only CT Chest (01/12/2020 12:00 AM EDT) Specimen (Source) Anatomical Location Collection Method / Collectio n Time Received Time / Laterality Volume Narrative RAD - 11/26/2021 9:29 AM EDT This exam is auto-finalizing. It's purpo se is for storage only. Rober Cho MD IMG FILM LIBRARY ORDERABLES Performing Organization Address City/State/ZIP Code Phon e Number RAD [place], [place] documented in this encounter Visit Diagnoses Not on filedocumented in this encounter Care Teams Conche Loader And Unloader Relationship Specialty Start Date End Date Wanda Castillo PA PCP - General General Internal Medicine 05/16/[address] [facility] [place] [address] documented as of this encounter
--- OUTSIDE RECORDS SUMMARY | 2022-03-12 15:43 | XMS_ITS | Encounter Summary ---
:1950 Author Organization [facility] [address] Care Team Providers Name Role Phone Wanda Castillo Primary Care Provider Reason for Visit Reason Onset Date Comments Medication Refill 12/16/2019 Encounter Details Date Type Department Care Team Description 12/16/2019 Refill [place] [facility] Zari Maldonado, Lumbosacral spondylosis with out myelopathy; [facility] Kayla khan RN Disorder of bursae and tendo ns in shoulder region; [place] [address] Primary osteoarthritis of hi p, unspecified laterality [phone] Social History Tobacco Use Types Packs/Day Years [...] Pulmonology Sonja Jenkins MD [facility] er Pulmonary Mediczion ne [place], [place] [address] (Wo rk) documented as of this encounter Visit Diagnoses Diagnosis Lumbosacral spondylosis without myelopat hy Disorder of bursae and tendons in should er region Disorders of bursae and tendons in shoul jhon region, unspecified Primary osteoarthritis of hip, unspecifi ed laterality documented in this encounter Care Teams Segregator Relationship Specialty Start Date End Date Wanda Castillo PA PCP - General General Internal Medicine 05/16/17 1 [facility] [place] [address] documented as of this encounter
--- OUTSIDE RECORDS SUMMARY | 2022-03-12 15:43 | XMS_ITS | Encounter Summary ---
:1950 Author Organization [facility] [place] [address] Care Team Providers Name Role Phone Wanda Castillo Primary Care Provider Encounter Details Date Type Department Care Team Description 11/23/2019 TH Visit Rheumatology at [facility] Hesham Dwyer Primary osteoarthritis invol ving multiple joints; (TeleHealth) [facility] MD Nell Arthralgia, unspecified joint; [facility] Positive CRISTOFER (antinuclear an tibody); [place], [place] Rheumatoid factor positive; [id number] RHE[address] DEPT. ILD (interstitial lung disease); [phone] [place], [place] [address] Pulmonary fibrosis; [phone] (Wo rk) Fibromyalgia Social History Tobacco Use Types Packs/Day Years Used Date Never Smoker Smokeless Tobacco: Never Used Alcohol Use Standard Drinks/Week Comments No 0 (1 standard drink = 0.6 oz pure alcoho l) Sex Assigned at Date Recorded Not on file documented as of this encounter Progress Notes Hesham Dwyer MD - 11/23/2019 11:00 AM EDT 11/23/2019 [id number] This is a telephone visit for patient Ashley Da Silva in follow-up of her widespread osteoarthritis, back pain, fibromyalgia, and generalized chronic pain. Her last visit here in the clinic was on 05/25/2019. We treat her musculoskeletal pain with tramadol predominantly. More recently her ongoing has been weight loss. She was down below 100 pounds,and at that last visit was 97 lbs. We have been trying to have her undergo a barium swallow because of significant dysphagia associated with the weight loss. She had also had an MRCP on 11/15/[address] obtained for RUQ pain with nausea and vomiting back in 08/25/2014 showed CBD dilitation and mass. Dr. Ogden in GI did an endoscopic ultrasound on 12/23/2014 and saw no mass, but the recommendation was for repeating the MRCP in 3 months to establish stability. She has had neither the barium swallow nor the MRCP done. In 09/2018, she was admitted to [facility] for acute chest pain, wheezing, and SOB after getting over a pneumonia. Cardiac work-up was negative and her chronic ILD was noted. Since then she has had progressivedyspnea. Along the way she Dr. Diaz and Dr. Giron, pulmonologists in [place], [place] who recommended a CT scan, as well as PFTs with a 6-minute walk, but they left their practices and the tests were not done. More recently, she has been following with medical billing manager Dr. Netta Knight who was able toget the evaluation done. We spoke with Ashley in July and she reported that her weight bottomed out at 82 lbs, but that she was up to 92. She had a VATS lung biopsy on 07/28/2020 at [facility] requiring a chest tube from 07/28-. We have notes from Dr. Knight who summarized thefollowing important findings: PFTs 06/28/2019 FEV1/FVC 81, FEV1 57%, 1.12 L, FVC 53%, 1.38 L, TLC 85%, RV 119%, SVC 58%, uncorrected DLCO 52%, corrected DLCO 68%, airway resistance 59%. Chest CT 07/02/2019 showed a very small right upper lobe pneumothorax, upper lobe predominant bilateral, fairly significant peripheral fibrotic changes with honeycombing. The changes were also seen in the lower lobes, but to a lesser extent. The results were reviewed with Dr. Earl Wadsworth, the radiologist, who thought the upper lobe honeycomb changes were somewhat atypical, but the lower lobe changes were consistent with UIP. Biopsy pathology reports 07/28/2019 of the 2 VATS biopsies done of the right lower lobes showed UIP-like features, but with some slightly atypical features with some small honeycomb cysts subpleurally and increased macrophages in a multinucleated fashion, which is sometimes seen in giant cell interstitial pneumonia. There was a concern about heavy metal exposure, e-cigarette use. 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 [facility] genomic testing was negative for UIP. Pertinent labs 06/28/2019 Positive rheumatoid factor, positive CRISTOFER 1: 320 in a speckled pattern, CCPnegative, slightly positive COOLER SUPERVISOR at 2.7, O/W negative. Ashley has not had the barium swallow yet. Dr. Knight saw the patient along with her family on 08/30/2019 and reviewed all the information above. At that point, she started Ashley on OVEF (nintedanib), the tyrosine kinase inhibitor being used for interstitial fibrosis. She referred the patient back to us due to concerns that the ILD is likelyrelated to an underlying connective tissue disease along with the positive rheumatoid factor and CRISTOFER. The question was whether she should be on some type of agent for her possible rheumatoid arthritis rheumatoid arthritis to help slow the progression of her lung disease. We spoke with Ashley on 09/22/2019and she reported that her breathing was good and that she felt the new medication was helping. She did get sob with activity and cough. She was having no chest pain. No fever or chills. We have been trying to get Ashley in for a [id number] visit, but it's been difficult, more recently due to the COVID-19 pandemic. We finally decided to just do a phone visit today to try and get things moving. Speaking with her on the phone today, she is doing so-so. She was on nintedanib at 300 mg a day, butshe has down to 200 mg total due to some liver test abnormalities. She has some dyspnea with talkingduring our conversation today. She is winded in the AM, better as she gets going. In terms of her joints, we have never thought in the past that she has rheumatoid arthritis. Today she reports that herfingers are bothering her, especially the right 2nd and 3rd finger PIPs. She says that all her PIP joints are swollen, especially in the AM. In addition her right wrist, right > left shoulders, knees, and ankles have been bothering her. Sometimes when she is walking, she will get shaky in the legs,and has to go down. She has trouble characterizing these episodes any further than that. It seems tamra due to a mixture of pain and weakness in her legs. Her neck and upper back hurt. She has some AM stiffness, lasting an hour. She sometimes has night pain and stiffness in the knees and right shoulder. V-gel helps. Sometimes she has to get up out of bed and move around for relief. Interestingly, shewas on prednisone for URI last year, and noted that it helped not only her breathing, but also her joints. Plan: Dr. Knight has already done a number of the rheumatology logic testing necessary. There are a few more labs we will add or repeat, although I do not think the results are going to change the decision-making. Up until now, we have not thought of Ashley as having an underlying connective tissue disease, either rheumatoid arthritis or something in the lupus domain. Not being able to examine her now, of course, limits our ability to determine if things have actually changed and now she is showing signs of rheumatoid arthritis, etc. I'm a bit skeptical that is the case. I examined her in early 05/2019and she had no evidence of inflammatory arthritis at that time. She did have a negative RF and CCP in our lab in 07/2005 and a negative RF in 11/1997. She has never had an elevated ESR or CRP in our lab. Regardless, there would seem to be 3 choices. One would be to assume that she does not have a underlying connective tissue disease and just continue with the nintedanib. The other 2 options are to continue to try and identify an underlying connective tissue disease, or finally to just assume that there may be an underlying inflammatory process that is contributing to her pulmonary fibrosis and treat accordingly. I would favor the last approach. Then the question becomes which drug to use and I can think quickly of 3 choices. They would be CellCept (mycophenolate mofetil, MMF). Azathioprine, or Rituxan. Of the 3, I would think that MMF has a higher likelihood of working for lupus/scleroderma type/RA interstitial lung disease, but it really does not do much for rheumatoid arthritis per se. Rituxan might treat her lung disease and definitely would treat RA, but I think MMF is better for the former and we're not sure she has the latter. So at the end of the day, I would recommend MMF at doses of 2 to 3 g a day as tolerated, if Dr. Knight and the patient agreet. Azathioprine is a reasonable second choice. Then there is the consideration of interactions between the MMF and nintedanib, particularly GI side effects and hepatotoxicity. If wedid start MMF, we would have to titrate that up relatively slowly and keep a close eye on her labs. Finally, I think it would still be useful to have a modified barium swallow done to rule out a contribution of reflux and aspiration. Visit Diagnoses: 1. Primary osteoarthritis involving multiple joints 2. Arthralgia, unspecified joint 3. Positive CRISTOFER (antinuclear antibody) 4. Rheumatoid factor positive 5. ILD (interstitial lung disease) 6. Pulmonary fibrosis 7. Fibromyalgia Total phone time: 13 min, 25 sec Total time of visit, including reviewing EMR, literature, and treatment options: >40 min Visit level: 01170 documented in this encounter Plan of Treatment Upcoming Encounters Date Type Specialty Care Team Description 05/28/2022 Appointment Pulmonology 05/28/2022 Office Visit Pulmonology Sonja Jenkins MD [facility] Pulmonary Medici ne [place], [place] [address] (Wo rk) documented as of this encounter Visit Diagnoses Diagnosis Primary osteoarthritis involving multipl e joints Arthralgia, unspecified joint Positive CRISTOFER (antinuclear antibody) Other and unspecified nonspecific immuno logical findings Rheumatoid factor positive Other and unspecified nonspecific immuno logical findings ILD (interstitial lung disease) Postinflammatory pulmonary fibrosis Pulmonary fibrosis Postinflammatory pulmonary fibrosis Fibromyalgia Mylagia and myositis, unspecified documented in this encounter Care Teams Hot Wound Spring Production Supervisor Relationship Specialty Start Date End Date Wanda Castillo PA PCP - General General Internal Medicine 05/16/[address] [place] [address] [place] [address] documented as of this encounter
--- OUTSIDE RECORDS SUMMARY | 2022-03-12 15:44 | XMS_ITS | Encounter Summary ---
:1950 Author Organization [place] [address] Care Team Providers Name Role Phone Wanda Castillo Primary Care Provider Reason for Visit Reason Onset Date Comments Medication Refill 04/14/2019 Encounter Details Date Type Department Care Team Description 04/14/[address] [facility] Qiana Yang, [place] [address] Social History Tobacco Use Types Packs/Day Years Used Date Never Smoker Smokeless Tobacco: Never Used Alcohol Use Standard Drinks/Week Comments No 0 (1 standard drink = 0.6 oz pure alcoho l) Sex Assigned at Date Recorded Not on file documented as of this encounter Miscellaneous Notes Telephone Encounter - Qiana Yang RN - 04/14/2019 1:25 PM EDT Patient calls asking for a refill on Tramadol. PDMP is up to date - will cue script and route to provider for approval. I left Ashley a return voicemail to let her know we received her request and will process it for her. I left my name and callback number for her if needed. documented in this encounter Plan of Treatment Upcoming Encounters Date Type Specialty Care Team Description 05/28/2022 Appointment Pulmonology 05/28/2022 Office Visit Pulmonology Sonja Jenkins MD [facility] Pulmonary Mediczion powers [place], [place] [address] (Wo rk) documented as of this encounter Visit Diagnoses Not on filedocumented in this encounter Care Teams Textile Coating Machine Operator Relationship Specialty Start Date End Date Wanda Castillo PA PCP - General General Internal Medicine 05/16/17 1 [facility] [place] [address] documented as of this encounter
--- OUTSIDE RECORDS SUMMARY | 2022-03-12 15:44 | XMS_ITS | Encounter Summary ---
:1950 Author Organization [facility] [place] [address] Care Team Providers Name Role Phone Wanda Castillo Primary Care Provider Reason for Visit Reason Onset Date Comments Medication Refill 11/17/2018 Encounter Details Date Type Department Care Team Description 11/17/2018 Refill Rheumatology at [facility] Hesham Dwyer, Lumbosacral spondylosis with out myelopathy; [facility] Disorder of bursae and tendons in should er region; [facility] Primary osteoarthritis of hip, [place] [address] RHEUMATOLOGY DEPT. [phone] [place], [place] [address] (Wo rk) Social History Tobacco [...] 05/28/2022 Office Visit Pulmonology Sonja Jenkins MD [facility] er Pulmonary Mediczion [place], [place] [address] (Wo rk) documented as of this encounter Visit Diagnoses Diagnosis Lumbosacral spondylosis without myelopat hy Disorder of bursae and tendons in should er region Disorders of bursae and tendons in shoul jhon region, unspecified Primary osteoarthritis of hip, unspecifi ed laterality documented in this encounter Care Teams Financial Analyst Accountant Relationship Specialty Start Date End Date Wanda Castillo PA PCP - General General Internal Medicine 05/16/17 1 [facility] [place] [address] documented as of this encounter
--- OUTSIDE RECORDS SUMMARY | 2022-03-12 15:44 | XMS_ITS | Encounter Summary ---
:1950 Author Organization [place] [place] [address] Care Team Providers Name Role Phone Wanda Castillo Primary Care Provider Encounter Details Date Type Department Care Team Description 10/05/2018 External Results [place] [address] Social History Tobacco Use Types Packs/Day [...] Jenkins MD [facility] Pulmonary Mediczion [place], [place] [address] (Wo rk) documented as of this encounter Procedures Procedure Name Priority Date/Time Associated Diagnosis Comme nts ECG SCAN Routine 10/05/2018 Results for thi s procedure are in the resu lts section. documented in this encounter Results Scan Doc: ECG (10/05/2018) Narrative This result has an attachment that is no t available. Historical Provider MEDIA MGR SCAN EXT ORDR/RSLT documented in this encounter Visit Diagnoses Not on filedocumented in this encounter Care Teams Data Analyst Relationship Specialty Start Date End Date Wanda Castillo PA PCP - General General Internal Medicine 05/16/17 1 [facility] [place] [address] documented as of this encounter
--- OUTSIDE RECORDS SUMMARY | 2022-03-12 15:44 | XMS_ITS | Encounter Summary ---
:1950 Author Organization [facility] Address [address] [address] Care Team Providers Name Role Phone Wanda Castillo Primary Care Provider Encounter Details Date Type Department Care Team Description 05/25/2019 Office Visit Rheumatology at [facility] Hesham Dwyer Fibromyalgia; [facility] MD Nell Primary osteoarthritis involving multipl e joints; Drive [facility] Weight loss; [place], [place] Vitamin B deficiency; [phone] [address]PT[address] Iron deficiency [phone] [place], [place] [address] (Wo rk) Social History Tobacco Use Types Packs/Day Years Used Date Never Smoker Smokeless Tobacco: Never Used Alcohol Use Standard Drinks/Week Comments No 0 (1 standard drink = 0.6 oz pure alcoho l) Sex Assigned at Date Recorded Not on file documented as of this encounter Last Filed Vital Signs Vital Sign Reading Time Taken Comments Blood Pressure 103/54 05/25/2019 10:40 AM EDT Pulse 71 05/25/2019 10:40 AM EDT Temperature 36.7 ??C (98.1 ??F) 05/25/2019 10:40 AM EDT Respiratory Rate - - Oxygen Saturation 100% 05/25/2019 10:40 AM EDT Inhaled Oxygen Concentration - - Weight 44 kg (97 lb) 05/25/2019 10:40 AM EDT Height 152.4 cm (5') 05/25/2019 10:40 AM EDT Body Mass Index 18.94 05/25/2019 10:40 AM EDT documented in this encounter Patient Instructions Patient InstructionsHesham Dwyer MD - 05/25/2019 10:30 AM EDT Get labs today at 3L. Call or myDH for results if you don't hear from us by next week. We put in the consult for pulmonology. We'll see what the hold-up is. We may start ordering the tests to move things along. Further recommendations based on test results. Follow up in 6 months. Call if problems or concerns. documented in this encounter Progress Notes Hesham Dwyer MD - 05/25/2019 10:30 AM EDT Rheumatology Clinic: Dr. Dwyer 05/25/2019 [id number] Ashley Da Silva is seen in follow-up of her widespread osteoarthritis, back pain, fibromyalgia, and generalized chronic pain. We treat that with tramadol predominantly. When she was in last time on 10/27/2017, or over a year and a half ago, the main issue was some weight loss. She had gotten down as lowas 100 pounds, but at the time was back up to around 109-111 pounds. She was somewhat lost to follow-up. At the time, we wanted to get a barium swallow because of significant dysphagia associated with the weight loss. She had also had an MRCP on 11/15/[address] obtained for RUQ pain with nausea and vomiting back in 08/25/2014 showed CBD dilitation and mass. Dr. Ogden in GI did an endoscopic ultrasound on 12/23/2014 and again saw no mas, but the recommendation was for repeating the MRCP in 3 months to establish stability. She had neither the barium swallow nor the MRCP was done. She did have another CT scan on 04/22/2015 when she presented with LUQ pain, nausea and vomiting. Again, ductal dilatation was seen and it was speculated that this was chronic and possibly related to a benign CBD stricture. She reports today that the dysphagia resolved for unclear reasons. Food is no longer getting stuckon swallowing. But unfortunately, she has continued to lose weight. She was down as low as 87 poundsand now is back up to 97 pounds. She is doing that by basically eating as much as she can. She neverlost her appetite, and in fact,she is able to eat as much as she wants and does, but she has troublemaintaining and now gaining weight. In the midst of this, back in September, she developed a pneumonia and was admitted to [facility] after transfer from [facility] in [place]. The note available from [facility] from 10/06/2018 summarizes asbelow: Admit Date: 10/06/2018 Discharge Date: 10/07/2018 Disposition: Home or self care Principal Procedure: NM stress spect Date: 10/07/2018 Hospital Course 68-year-old woman with a history of chronic interstitial lung disease, prior gastric bypass (stomachstapling per patient), prior episode of noncardiac chest pain with normal left heart cath in 2017, who presented to the ED at [facility] with acute onset dyspnea and wheezing. In the ED at outside hospital she was hemodynamically stable. EKG was reportedly unremarkable thoughnone provided in the transfer records. Labs were unremarkable including negative troponin. A transthoracic echo was done which showed normal EF and no regional wall motion abnormalities. Patient was given Nitropaste with eventual resolution of her symptoms. There was concern for ACS-unstable angina and the patient was started on heparin drip and given aspirin. On arrival to [facility] patient was chest pain free. A NM Spect was done which showed possible small inferior defect which was felt to be a false positive. Her left heart catheterization films were reviewed from 2017 and she was felt to have normal coronaries. Our recommendation is PCP follow-up with continued work-up of her chronic lung disease as well as unexplained weight loss. We recommend that patient follow-up with Dr. Ferrara (pulmonary) as well. Along the way, she saw Dr. Calvin Giron, director nursery school in [place], [place]. She saw her one time and recommended a CT scan, as well as PFTs with a 6-minute walk. However he subsequently left that practice and the tests were not done. She contacted us recently for a referral to our pulmonary clinic here. That has not been scheduled as of yet. It became clear today that she cannot recall the exact sequence of events over the last year or more. The [facility] note mentions chronic interstitial lung disease, but shesays the diagnosis of pulmonary fibrosis was new, and she never had any lung problems before. In terms of her joint pain, her knees continue to be a big problem. She has noticed that she is getting more deformity there. She is knock-kneed. It does not really hurt, but she does not like the appearance. On other review of systems, she does have dry mouth. In terms of the consequences of pulmonary fibrosis, she does now have dyspnea on exertion. She uses inhalers. When she takes a deep breath or uses an inhaler, she coughs. She says she had an echo in August-September of this year up near home that looked okay. She also says she has been told she has noevidence of COPD. She never smoked. Patient Active Problem List Diagnosis Code ??? [...] M19.041 ??? Primary osteoarthritis involving multiple joints M15.0 ??? Ankle fracture, left S82.892A ??? Dysphagia R13.10 ??? Arthralgia M25.50 ??? Low ferritin R79.0 ??? Folate deficiency E53.8 ??? Vitamin B deficiency E53.9 ??? Fibromyalgia M79.7 ??? Pain R52 Medications 05/25/19 1043 Medication Sig Taking? traMADol (ULTRAM) 50 mg Tablet Take 1-2 tablets by mouth every 8 hours as needed for Pain. Yes diclofenac (VOLTAREN) 1 % Gel Apply 2 g topically 4 times daily. Yes aspirin 81 mg Tablet, Delayed Release (E.C.) Take 81 mg by mouth. Yes folic acid (FOLVITE) 1 mg Tablet take 1 tablet by mouth once daily Yes sulindac (CLINORIL) 150 mg Tablet Take 1 tablet by mouth 2 times daily. With food. Yes multivitamin with minerals Tablet Take 1 [...] 1,000 mcg/mL Solution every 30 days. Yes Physical Exam: She looks thin and frail, bordering on cachectic. Her face is gaunt. Blood pressure 103/54, pulse 71, temperature 36.7 ??C (98.1 ??F), height 152.4 cm (5'), weight 44 kg(97 lb), SpO2 100 %. Skin: Clear. HEENT: Very dry mouth. Lungs: Clear. No crackles or wheezes. Heart: Regular rhythm and rate without murmur, gallop, or rub. Abdomen: Benign. No masses, tenderness, or organomegaly. Extremities: 1+ ankle edema. Good distal pulses. Musculoskeletal: She has significant degenerative changes in her hands, but no synovitis. Wrists, elbows, shoulders move well. Her right hip has some pain on range of motion, left hip is fine. Her knees have now an obvious valgus deformity bilaterally, rendering her knock-kneed. There is definitely crepitance and loss of full extension bilaterally. Her ankles are fine. Neuro: Grossly intact. Assessment: We had a long discussion about her situation. As usual, a lot has happened since I last saw her, most of it non-rheumatologic. I am not sure as to the reason for the delay in scheduling herpulmonary consult, but we will try and expedite that. If it looks like it is going to be a ways out,we might go ahead and order pulmonary function tests with a 6-minute walk, as well as a CT scan of the chest. I am still not 100% convinced we do not need a barium swallow, even though her dysphagia symptoms are much better. We did go into the fact that she has gone off of any type of regular NSAIDs, and she takes prn ibuprofen even rarely than she used to because it causes reflux. So we will not make any medication changes at the moment and she will continue with the tramadol. We will check labs today. Further recommendations based on the test results. I will see her back in 6 months. She understood the plan. We gave the patient the following specific instructions: Patient Instructions Get labs today at 3L. Call or myDH for results if you don't hear from us by next week. We put in the consult for pulmonology. We'll see what the hold-up is. We may start ordering the tests to move things along. Further recommendations based on test results. Follow up in 6 months. Call if problems or concerns. Over 30 minutes of the 40 minute follow-up were spent discussing these problems and their treatment options in [id number] counseling. Orders Placed This Encounter Procedures ??? CBC (with Diff) ??? Comprehensive metabolic panel (non-fasting) ??? Sedimentation rate ??? CRP, acute inflammation ??? TSH ??? CRISTOFER ([facility]) ??? Extractable Nuclear Antigen (DIVINE) Ab ??? Vitamin B12 ??? Folate, serum ??? Iron and TIBC ??? Ferritin Visit Diagnoses: 1. Fibromyalgia 2. Primary osteoarthritis involving multiple joints 3. Weight loss 4. Vitamin B deficiency 5. Iron deficiency documented in this encounter Plan of Treatment Upcoming Encounters Date Type Specialty Care Team Description 05/28/2022 Appointment Pulmonology 05/28/2022 Office Visit Pulmonology Sonja Jenkins MD [facility] Dr [address] [place], [place] [address] (Wo rk) documented as of this encounter Visit Diagnoses Diagnosis Fibromyalgia Mylagia and myositis, unspecified Primary osteoarthritis involving multipl e joints Weight loss Loss of weight Vitamin B deficiency Unspecified vitamin B deficiency Iron deficiency Iron deficiency anemia, unspecified documented in this encounter Care Teams Typesetting Supervisor Relationship Specialty Start Date End Date Wanda Castillo PA PCP - General General Internal Medicine 05/16/17 1 [facility] [place] [address] documented as of this encounter
--- OUTSIDE RECORDS SUMMARY | 2022-03-12 15:44 | XMS_ITS | Encounter Summary ---
:1950 Author Organization [place] [address] Care Team Providers Name Role Phone Wanda Castillo Primary Care Provider Encounter Details Date Type Department Care Team Description 10/27/2017 Hospital XRay at [facility] Hesham Dwyer Primary osteoarthritis invol ving multiple joints; Encounter 1 [facility] MD Nell [place] [address] RHEUMATOLOGY DEPT. [phone] [place], [place] [address] Social History Tobacco Use Types Packs/Day Years Used Date Never Smoker Smokeless Tobacco: Never Used Alcohol Use Standard Drinks/Week Comments No 0 (1 standard drink = 0.6 oz pure alcoho l) Sex Assigned at Date Recorded Not on file documented as of this encounter Medications at Time of Discharge Medication Sig Dispensed Refills Start Date End Date aspirin 81 mg Tablet, Take 81 mg [...] 06/20/20 14 B-12, 1,000 mcg/mL Solution diclofenac (VOLTAREN) 1 % Apply 2 g topically 100 g 11 0 10/27/2017 11/17/2018 GelIndications: 4 times daily. Lumbosacral spondylosis without myelopathy, Disorder of bursae and tendons in shoulder region, Primary osteoarthritis of hip, unspecified laterality traMADol (ULTRAM) 50 mg Take 1-2 tablets by 180 tablet 3 02/20/2018 Tablet mouth every 8 hours if needed. documented as of this encounter Plan of Treatment Upcoming Encounters Date Type Specialty Care Team Description 05/28/2022 Appointment Pulmonology 05/28/2022 Office Visit Pulmonology Sonja Jenkins MD [facility] er Pulmonary [place], [place] [address] (Wo rk) documented as of this encounter Procedures Procedure Name Priority Date/Time Associated Diagnosis Comme nts XR PELVIS AND LAT Routine 10/27/2017 3:42 PM Primary osteoarth ritis Results for this HIP RIGHT EDT involving multiple procedure are in joints the results Pain in right hip section. documented in this encounter Results XR Pelvis & Lat Hip Right (Generic) (10/27/2017 3:42 PM EDT) Anatomical Region Laterality Modality Pelvis, Hip Right Digital Radiography Specimen (Source) Anatomical Location Collection Method / Collectio n Time Received Time / Laterality Volume Impressions 10/27/2017 4:33 PM EDT Osteoarthropathy of bilateral hips. I have personally reviewed the image(s) and the residents interpretation and agree with the findings, PEGGY SCHAEFER at 10/27/2017 4:33 PM Narrative 10/27/2017 4:33 PM EDT EXAMINATION: XR PELVIS AND LAT HIP RIGHT (GENERIC) CLINICAL HISTORY: Groin pain, decreased ROM. ??? OA. TECHNIQUE: AP view of the pelvis, AP and lateral vi ews of the right hip COMPARISON: CT abdomen and pelvis 05/02/2015, KUB 02/18 FINDINGS: No fracture or dislocation. There is ost eoarthropathy of bilateral hips as evidenced by marginal osteophyte formati on and subchondral sclerosis. Mild posterior joint space narrowing was demo nstrated on the prior CT, but not well visualized on current radiograph. Degene rative changes of the lower lumbar spine. SI joints and pubic symphysis are unremarkable. Pelvic surgical clips are present. Procedure Note Peggy Schaefer MD - 10/27/2017Formattin g of this note might be different from the original. EXAMINATION: XR PELVIS AND LAT HIP RIGHT (GENERIC) CLINICAL HISTORY: Groin pain, decreased ROM. ? OA. TECHNIQUE: AP view of the pelvis, AP and lateral vi ews of the right hip COMPARISON: CT abdomen and pelvis 05/02/2015, KUB 02/18 FINDINGS: No fracture or dislocation. There is ost eoarthropathy of bilateral hips as evidenced by marginal osteophyte formati on and subchondral sclerosis. Mild posterior joint space narrowing was demo nstrated on the prior CT, but not well visualized on current radiograph. Degene rative changes of the lower lumbar spine. SI joints and pubic symphysis are unremarkable. Pelvic surgical clips are present. IMPRESSION Osteoarthropathy of bilateral hips. I have personally reviewed the image(s) and the residents interpretation and agree with the findings, PEGGY SCHAEFER at 10/27/2017 4:33 PM Hesham Dwyer MD IMG DX ORDERABLES documented in this encounter Visit Diagnoses Diagnosis Primary osteoarthritis involving multipl e joints Pain in right hip Pain in joint, pelvic region and thigh documented in this encounter Care Teams Mounter Brass Wind Instruments Relationship Specialty Start Date End Date Wanda Castillo PA PCP - General General Internal Medicine 05/16/17 1 [facility] [place] [address] documented as of this encounter
--- OUTSIDE RECORDS SUMMARY | 2022-03-12 15:44 | XMS_ITS | Encounter Summary ---
:1950 Author Organization [facility] [place] [address] Care Team Providers Name Role Phone Wanda Castillo Primary Care Provider Reason for Visit Reason Onset Date Comments Medication Refill 02/20/2018 Encounter Details Date Type Department Care Team Description 02/20/2018 Refill [place]ology at [facility] Joel Washington[facility] [place] [address] Social History Tobacco Use Types Packs/Day Years Used Date Never Smoker Smokeless Tobacco: Never Used Alcohol Use Standard Drinks/Week Comments No 0 (1 standard drink = 0.6 oz pure alcoho l) Sex Assigned at Date Recorded Not on file documented as of this encounter Miscellaneous Notes Telephone Encounter - Joel Washington RN - 02/20/2018 9:44 AM EDT Attempted to completed PDMP check. Per system, no patient listed. documented in this encounter Plan of Treatment Upcoming Encounters Date Type Specialty Care Team Description 05/28/2022 Appointment Pulmonology 05/28/2022 Office Visit Pulmonology Sonja Jenkins MD [facility] er Pulmonary Nataliya powers [place], [place] [address] (Wo rk) documented as of this encounter Visit Diagnoses Not on filedocumented in this encounter Care Teams Teen Counselor Relationship Specialty Start Date End Date Wanda Castillo PA PCP - General General Internal Medicine 05/16/17 1 [facility] [place] [address] documented as of this encounter
--- OUTSIDE RECORDS SUMMARY | 2022-03-12 15:44 | XMS_ITS | Encounter Summary ---
:1950 Author Organization [facility] [place] [address] Care Team Providers Name Role Phone Wanda Castillo Primary Care Provider Reason for Visit Reason Onset Date Comments Medication Refill 07/14/2018 Encounter Details Date Type Department Care Team Description 07/14/2018 Refill Rheumatology at [facility] Washington[facility] [place] [address] Social History Tobacco Use Types Packs/Day Years [...] 05/28/2022 Office Visit Pulmonology Sonja Jenkins MD [facility] er Pulmonary Medici [place], [place] [address] (Wo rk) documented as of this encounter Visit Diagnoses Not on filedocumented in this encounter Care Teams Cloth Neutralizer Relationship Specialty Start Date End Date Wanda Castillo PA PCP - General General Internal Medicine 05/16/[address] [place] [address] [place] [address] documented as of this encounter
--- OUTSIDE RECORDS SUMMARY | 2022-03-12 15:44 | XMS_ITS | Encounter Summary ---
:1950 Author Organization [facility] [place] [address] Care Team Providers Name Role Phone Wanda Castillo Primary Care Provider Reason for Visit Reason Onset Date Comments Medication Refill 02/10/2019 Encounter Details Date Type Department Care Team Description 02/10/2019 Refill [place]ology at [facility] Qiana [facility] [place] [address] Social History Tobacco Use Types Packs/Day Years Used Date Never Smoker Smokeless Tobacco: Never Used Alcohol Use Standard Drinks/Week Comments No 0 (1 standard drink = 0.6 oz pure alcoho l) Sex Assigned at Date Recorded Not on file documented as of this encounter Miscellaneous Notes Telephone Encounter - Qiana Yang RN - 02/10/2019 10:17 AM EDT Patient calls asking for a refill on her Tramadol. This will be sent to [facility] in [place], [place]. Her PDMP check was updated, everything looks good there. I called Ashley back to let her know we will be working on this prescription today, and it should be filled soon. She verbalized understanding andthanked me for the call back. We finished the call by transferring her to the secretaries to book a follow-up visit for her. documented in this encounter Plan of Treatment Upcoming Encounters Date Type Specialty Care Team Description 05/28/2022 Appointment Pulmonology 05/28/2022 Office Visit Pulmonology Sonja Jenkins MD [facility] Pulmonary Medici [place], [place] [address] (Wo rk) documented as of this encounter Visit Diagnoses Not on filedocumented in this encounter Care Teams Aquatics Coordinator Relationship Specialty Start Date End Date Wanda Castillo PA PCP - General General Internal Medicine 05/16/17 1 [facility] [place] [address] documented as of this encounter
--- OUTSIDE RECORDS SUMMARY | 2022-03-12 15:44 | XMS_ITS | Encounter Summary ---
:1950 Author Organization [facility] Address [address] [place] [address] Care Team Providers Name Role Phone Wanda Castillo Primary Care Provider Encounter Details Date Type Department Care Team Description 10/27/2017 Office Visit [place] [facility] [place]esham Dwyer Primary osteoarthritis invol ving multiple joints; [facility] MD Nell Weight loss; Drive [facility] Lumbosacral spondylosis with out myelopathy; [place], [place] DR Back pain, unspecified back location, un specified back pain laterality, unspecified chronicity; [id number] [address] Fibromyalgia; [phone] [place], [place] [address] Pain in right hip; [phone] (Wo rk) Disorder of bursae and tendons in should er region; Primary o steoarthritis of hip, unspecified laterality; Dysphagia, unsp ecified type Social History Tobacco Use Types Packs/Day Years Used Date Never Smoker Smokeless Tobacco: Never Used Alcohol Use Standard Drinks/Week Comments No 0 (1 standard drink = 0.6 oz pure alcoho l) Sex Assigned at Date Recorded Not on file documented as of this encounter Last Filed Vital Signs Vital Sign Reading Time Taken Comments Blood Pressure 123/60 10/27/2017 2:03 PM EDT Pulse 72 10/27/2017 2:03 PM EDT Temperature - - Respiratory Rate 18 10/27/2017 2:03 PM EDT Oxygen Saturation 100% 10/27/2017 2:03 PM EDT Inhaled Oxygen Concentration - - Weight 49.4 kg (109 lb) 10/27/2017 2:03 PM EDT Height 149.3 cm (4' 10.78) 10/27/2017 2:03 PM EDT Body Mass Index 22.18 10/27/2017 2:03 PM EDT documented in this encounter Patient Instructions Patient InstructionsHesham Dwyer MD - 10/27/2017 3:00 PM EDT Try sulindac twice day with food. Continue Voltaren gel and Tramadol. Get x-rays today. Go for barium swallow. Call to review results. Further recommendations from there. Follow up in 1 year. documented in this encounter Progress Notes Hesham Dwyer MD - 10/27/2017 3:00 PM EDT Rheumatology Clinic: Dr. Dwyer 10/27/2017 [id number] Ashley Da Silva is seen in follow-up of her widespread osteoarthritis, back pain, fibromyalgia, and general chronic pain. We have also been focused of late on her weight loss. The last time she was in back on 07/23/2016, we obtained x-rays of her lumbosacral spine that showed advanced degenerative disease with significant worsening since her previous study in 06/2012. The progression was most notable at L1-2 and L2-3. She also had degenerative narrowing at L5-S1 and a progression of grade 1 retrolisthesis of L3 on L4, approximately 10 mm. At that time, we suggested that she try tkin-kee-hmpsnpt Lidoderm patches. We also put her back on Celebrex. Finally, because of ongoing issues with weight loss and dysphagia, we intended for her to have a barium swallow. She had previous gastric bypass surgery. She had undergone an endoscopic upper GI ultrasound on 12/23/2014 Endosonographic Findings: : ?The patient had a previous gastric bypass so we could ?only visualize the left side of the patient's anatomy. ?The entire examined esophagus and stomach were normal. ?The examined body and tail of the pancreas were ?normal with the exception of slight dilation of the ?main PD to 3 mm in the body. ?Endoscopic Findings: : ?We then decided to proceed with evaluation ?endoscopically to see if we could visualize the ?papilla ?The esophagus and stomach were normal with an intact ?suture line ?We advanced the pediatric colonoscope to the J-J ?anastomosis and retrograde to the stomach. We then ?evaluated the ampulla and there was no evidence of ?ampullary mass lesion. Copious bile drained from the ?ampulla. ? Impression: ?- No evidence of ampullary mass on ?endoscopic imaging. Given the ?patient's normal liver tests and the ?fact that she has had a CCY, her CBD ?is likely not due to an obstructive ?process Recommendation: ?- Follow expectantly in the clinic. I ?would favor repeating the MRCP in ?three months to ensure stability She never had the repeat MRCP. More recently, she did not have the barium swallow. She reports todaythat she continued to lose weight and got down as low as 100 pounds, but is now back up to 111 pounds, according to her. She still has trouble swallowing. The example she gave last time was that she cannot eat a sandwich or a slice of bread without taking off the crust, and then in order to get it down, she has to take small bites. She also has a sense of food getting stuck in her mid or lower esophagus. She also has early satiety. She also tells me one concerning episode where she was eating just asimple piece of orange and it got stuck in her throat and her daughter had to perform the Heimlich maneuver on her in order to dislodge it. As far as the Celebrex, she had a reaction to that with some shortness of breath shortly after starting. Most anti-inflammatories tend to cause increased symptoms of indigestion and reflux. She can take ibuprofen and finds that helpful, but if she takes it regularly, it will eventually cause worseningreflux symptoms. She continues to take tramadol and continues to complain that she wishes she had something stronger than that to go to. Today, in addition to her usual painful areas, especially the back, and that involves the low lumbar/sacral area into the left SI area, she has also been having increasing right hip pain. We believe she has chronic osteoarthritis there that has been underestimated on previous x-rays. At one point, she underwent intra-articular steroid injections in that hip with some benefit. She also tells me that she was diagnosed with influenza back in September and actually had to spend acouple of days in the hospital. She was treated with antivirals. Apparently she had a lot of wheezing during this episode. 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 In fact, she has a test coming up in a month for her local license. She intends to also get a license in [place], as well, and spent a couple of months each winter down there. She got side-tracked on these goals 2 years ago with the of her grandchild, who was taken up a lot of her time since. The grandchild is doing well. Patient Active Problem List Diagnosis Code ??? Disorder of bursae and tendons in shoulder region M71.9, M67.919 ??? Primary osteoarthritis of left hand M19.042 ??? Osteoarthrosis, unspecified whether generalized or localized, lower leg M17.10 ??? Back pain M54.9 ??? Lumbar degenerative disc disease M51.36 ??? Degenerative arthritis of cervical spine M47.812 ??? Lumbosacral spondylosis without myelopathy M47.817 ??? Right hip pain M25.551 ??? Osteoarthrosis, unspecified whether generalized or localized, pelvic region and thigh M16.9 ??? Abdominal pain, RUQ (right upper quadrant) [...] ??? Fibromyalgia M79.7 ??? Pain R52 Medications 10/27/17 1410 Medication Sig Taking? aspirin 81 mg Tablet, Delayed Release (E.C.) Take 81 mg by mouth. Yes folic acid (FOLVITE) 1 mg Tablet take 1 tablet by mouth once daily Yes diclofenac (VOLTAREN) 1 % Gel Apply 2 g topically 4 times daily. Yes traMADol (ULTRAM) 50 mg Tablet Take 1-2 tablets by mouth every 8 hours if needed. Yes multivitamin with minerals Tablet Take 1 tablet by mouth daily. Yes albuterol 90 mcg/actuation HFA Aerosol Inhaler Inhale 2 puffs into the lungs every 4 hours as neededfor Wheezing. Use with spacer Yes desonide (DESOWEN) 0.05 % Lotion Prn Yes cyanocobalamin, vitamin B-12, 1,000 mcg/mL Solution every 30 days. Yes sulindac (CLINORIL) 150 mg Tablet Take 1 tablet by mouth 2 times daily. With food. lidocaine (LIDODERM) 5 % Adhesive Patch, Medicated Apply 1 patch onto the skin daily. (leave on for 12 hours and remove for 12 hours) Patient not taking: Reported on 10/27/2017 oxyCODONE (ROXICODONE) 5 mg Tablet Take 1-2 tablets by mouth every 4 hours as needed for Pain. No driving, no alcohol Patient not taking: Reported on 10/27/2017 Physical Exam: She looks thin, but well. Blood pressure 123/60, pulse 72, resp. rate 18, height 149.3 cm (4' 10.78), weight 49.4 kg (109 lb), SpO2 100 %. Skin: Clear. HEENT: Unremarkable. Lungs: She has scattered end-expiratory wheezes. Heart: Regular rhythm and rate without murmur, gallop, or rub. Abdomen: Benign. No masses, tenderness, or organomegaly. Extremities: No edema. Good distal pulses. Musculoskeletal: She has significant degenerative changes in her hands, but there is no synovitis. Wrists, elbows, and shoulders move well. Right hip has pain on range of motion and she gestures to thegroin and deep buttock on the right side. On the left side, she has an essentially normal exam. Her knees have crepitance bilaterally, consistent with some early degenerative disease there. Neuro: Grossly intact. Assessment: We had a long discussion about her situation. At the end of the day, we decided to get right hip x-rays to see if she has had progression there, as suggested by exam. Depending on what the x-rays shows, we may have her undergo another fluoroscopic-guided injection of the hip joint. We willalso schedule her for a barium swallow to look further into this chronic story of dysphagia. In the meantime, we tried her on sulindac 150 mg twice a day, instead of the Celebrex. It would be nice if we could find an anti-inflammatory that she tolerated and did not cause side effects. We also briefly discussed medical marijuana as a possible alternative for pain management. That might also help with her chronic problem with sleep. She will look into that. We will see her in follow-up in a year, but I asked her to stay in touch. We gave the patient the following specific instructions: Patient Instructions Try sulindac twice day with food. Continue Voltaren gel and Tramadol. Get x-rays today. Go for barium swallow. Call to review results. Further recommendations from there. Follow up in 1 year. Over 30 minutes of the 40 minute follow-up were spent discussing these problems and their treatment options in [id number]-au-zexi counseling. Orders Placed This Encounter Procedures ? ? XR Pelvis & Lat Hip Right (Generic) ??? XR Fluoro Barium Swallow Visit Diagnoses: 1. Primary osteoarthritis involving multiple joints 2. Weight loss 3. Lumbosacral spondylosis without myelopathy 4. Back pain, unspecified back location, unspecified back pain laterality, unspecified chronicity 5. Fibromyalgia 6. Pain in right hip 7. Disorder of bursae and tendons in shoulder region 8. Primary osteoarthritis of hip, unspecified laterality 9. Dysphagia, unspecified type EXAMINATION: XR PELVIS AND LAT HIP RIGHT (GENERIC) CLINICAL HISTORY: Groin pain, decreased ROM. ? OA. TECHNIQUE: AP view of the pelvis, AP and lateral views of the right hip ?? COMPARISON: CT abdomen and pelvis 05/02/2015, KUB 02/18/2015 ?? FINDINGS: No fracture or dislocation. There is osteoarthropathy of bilateral hips as evidenced by marginal osteophyte formation and subchondral sclerosis. Mild posterior joint space narrowing was demonstrated on the prior CT, but not well visualized on current radiograph. Degenerative changes of the lower lumbar spine. SI joints and pubic symphysis are unremarkable. Pelvic surgical clips are present. ?? IMPRESSION Osteoarthropathy of bilateral hips. ?? I have personally reviewed the image(s) and the residents interpretation and agree with the findings, PEGGY SCHAEFER at 10/27/2017 4:33 PM documented in this encounter Plan of Treatment Upcoming Encounters Date Type Specialty Care Team Description 05/28/2022 Appointment Pulmonology 05/28/2022 Office Visit Pulmonology Sonja Jenkins MD [facility] Pulmonary Medici [place], [place] [address] (Wo rk) Scheduled Orders Name Type Priority Associated Diagnoses Order S chedule XR Fluoro Guided Joint Imaging Routine Pain in r ight hip Expected: 11/08/2017 Aspiration Large Right Primary osteoarthr itis of (Approximate), hip, unspecified Expires: laterality documented as of this encounter Results XR Pelvis & Lat [...] Diagnosis Primary osteoarthritis involving multipl e joints Weight loss Loss of weight Lumbosacral spondylosis without myelopat hy Back pain, unspecified back location, un specified back pain laterality, unspecified chronicity Fibromyalgia Mylagia and myositis, unspecified Pain in right hip Pain in joint, pelvic region and thigh Disorder of bursae and tendons in should er region Disorders of bursae and tendons in shoul jhon region, unspecified Primary osteoarthritis of hip, unspecifi ed laterality Dysphagia, unspecified type Primary osteoarthritis involving multipl e joints Pain in right hip Pain in joint, pelvic region and thigh documented in this encounter Care Teams Fan Balancer Relationship Specialty Start Date End Date Wanda Castillo PA PCP - General General Internal Medicine 05/16/17 1 [facility] [place] [address] documented as of this encounter
--- OUTSIDE RECORDS SUMMARY | 2022-03-12 15:44 | XMS_ITS | Encounter Summary ---
:1950 Author Organization [facility] [place] [address] Care Team Providers Name Role Phone Wanda Castillo Primary Care Provider Reason for Visit Reason Onset Date Comments Questions 05/14/2019 Encounter Details Date Type Department Care Team Description 05/14/[address] [facility] Qiana Yang RN Questions [facility] [place] [address] Social History Tobacco Use Types Packs/Day Years Used Date Never Smoker Smokeless Tobacco: Never Used Alcohol Use Standard Drinks/Week Comments No 0 (1 standard drink = 0.6 oz pure alcoho l) Sex Assigned at Date Recorded Not on file documented as of this encounter Miscellaneous Notes Telephone Encounter - Qiana Yang RN - 05/19/2019 11:31 AM EDT We continue to be unsuccessful at reaching this patient via phone. Letter written and mailed to patient. Will notify and remain available for further assistance if needed. I have additionally requested that the secretaries reach out to her via phone or letter for scheduling. Telephone Encounter - Joel Washington RN - 05/17/2019 10:29 AM EDT Images from the original note were not included. Hesham Dwyer MD to Qiana Yang RN ??? [facility] Rheumatology Flasher Adjuster ?? 3:22 PM Cyrus Kiran, I put in the referral for pulmonary here. Please ask her to have Dr. Giron's notes and any test results re the pulmonary fibrosis sent to pulmonary here. Also, I'll cc the secretaries to make the appt with pulmonary and also a non-urgent appt with me. Would you please ask her if she ever had the barium swallow? Thanks! Mathew Attempted to contact patient, message indicates [employer] customer not available at this time, unable to leave message. Telephone Encounter - Qiana Yang RN - 05/14/2019 10:40 AM EDT Ashley called and asked for a referral to the Pulmonology clinic. She stated she was seen by a at [place] and diagnosed with fibrosis of the lungs. She was going to ask for a referral however he is no longer at that practice. She is wondering if is able to write the referral forher. I cautioned Ashley that she has not seen in over a year so he may not be able to write this referral. I suggested that she establish care with a new PCP for this need. She agreed to look into getting a new PCP and will call to make a follow-up visit with when she is done driving. I will call Ashley back with an answer about her referral soon. documented in this encounter Plan of Treatment Upcoming Encounters Date Type Specialty Care Team Description 05/28/2022 Appointment Pulmonology 05/28/2022 Office Visit Pulmonology Sonja Jenkins MD [facility] Pulmonary Mediczion [place], [place] [address] (Wo rk) documented as of this encounter Visit Diagnoses Not on filedocumented in this encounter Care Teams Strip Presser Relationship Specialty Start Date End Date Wanda Castillo PA PCP - General General Internal Medicine 05/16/17 1 [facility] [place] [address] documented as of this encounter
--- OUTSIDE RECORDS SUMMARY | 2022-03-12 15:44 | XMS_ITS | Encounter Summary ---
:1950 Author Organization [facility] [address] Care Team Providers Name Role Phone Wanda Castillo Primary Care Provider Encounter Details Date Type Department Care Team Description 12/02/2017 [place] [facility] [place]yer, Christopher Pain in right hip; Encounter 1 [facility] Luh Camejo MD Primary osteoarthritis of [place], [place] [address] RHEUMAT[address]Y DEPT. [phone] [place], [place] [address] Social History Tobacco Use Types [...] Visit Pulmonology Sonja Jenkins MD [facility] Pulmonary Mediczion [place], [place] [address] (Wo rk) Scheduled Orders Name Type Priority Associated Diagnoses Order S chedule XR Fluoro Guided Imaging Routine Pain in right h ip 1 Occurrences starting Joint Aspiration Primary osteoarthritis o f 12/02/2017 until Large Right hip, unspecified 12/02/2017 laterality documented as of this encounter Visit Diagnoses Diagnosis Pain in right hip Pain in joint, pelvic region and thigh Primary osteoarthritis of hip, unspecifi ed laterality documented in this encounter Care Teams Engineering Clerk Relationship Specialty Start Date End Date Wanda Castillo PA PCP - General General Internal Medicine 05/16/17 1 [facility] [place] [address] documented as of this encounter
--- OUTSIDE RECORDS SUMMARY | 2022-03-12 15:44 | XMS_ITS | Encounter Summary ---
:1950 Author Organization [place] [address] Care Team Providers Name Role Phone Wanda Castillo Primary Care Provider Reason for Visit Reason Onset Date Comments Medication Refill 05/20/2019 Encounter Details Date Type Department Care Team Description 05/20/2019 Refill Rheumatology at [facility] [place] [address] Social History Tobacco Use Types Packs/Day Years Used Date Never Smoker Smokeless Tobacco: Never Used Alcohol Use Standard Drinks/Week Comments No 0 (1 standard drink = 0.6 oz pure alcoho l) Sex Assigned at Date Recorded Not on file documented as of this encounter Miscellaneous Notes Telephone Encounter - Qiana Yang RN - 05/20/2019 4:07 PM EDT Patient calls asking for a Tramadol refill at the [facility] in [place], [place]. Script cued and routed to for approval - PDMP is up to date. I was unable to reach the patient during return call attempt. Patient has been very difficult to reach via phone in the past. I made a request to the pharmacy on her script to please contact the patient when the med is ready for pickup so she is aware this was done for her. documented in this encounter Plan of Treatment Upcoming Encounters Date Type Specialty Care Team Description 05/28/2022 Appointment Pulmonology 05/28/2022 Office Visit Pulmonology Sonja Jenkins MD [facility] Pulmonary Mediczion [place], [place] [address] (Wo rk) documented as of this encounter Visit Diagnoses Not on filedocumented in this encounter Care Teams Computer Salesperson Retail Relationship Specialty Start Date End Date Wanda Castillo PA PCP - General General Internal Medicine 05/16/17 1 [facility] [place] [address] documented as of this encounter
--- OUTSIDE RECORDS SUMMARY | 2022-03-12 15:44 | XMS_ITS | Encounter Summary ---
:1950 Author Organization [facility] [place] [address] Care Team Providers Name Role Phone Wanda Castillo Primary Care Provider Reason for Visit Reason Onset Date Comments Medication Refill 01/01/2019 Encounter Details Date Type Department Care Team Description 01/01/2019 Telephone Rheumatology at [facility] Qiana [place] [address] Social History Tobacco Use Types Packs/Day Years Used Date Never Smoker Smokeless Tobacco: Never Used Alcohol Use Standard Drinks/Week Comments No 0 (1 standard drink = 0.6 oz pure alcoho l) Sex Assigned at Date Recorded Not on file documented as of this encounter Miscellaneous Notes Telephone Encounter - Qiana Yang RN - 01/01/2019 4:33 PM EDT I called Ashley back to let her know she still has 1 refill left on this medication, she thanked me for the call and agrees to get her last refill, then call next time she is due. Telephone Encounter - Qiana Yang RN - 01/01/2019 4:25 PM EDT ----- Message from Jessenia Castillo LPN sent at 01/01/2019 3:43 PM EDT ----- Regarding: Tramadol refill Contact: Patient called requesting refill for her tramadol 50 mg, send to [facility] in [place], [place] Thank you. documented in this encounter Plan of Treatment Upcoming Encounters Date Type Specialty Care Team Description 05/28/2022 Appointment Pulmonology 05/28/2022 Office Visit Pulmonology Sonja Jenkins MD [facility] Pulmonary Medici [place], [place] [address] (Wo rk) documented as of this encounter Visit Diagnoses Not on filedocumented in this encounter Care Teams Senior Data Developer Relationship Specialty Start Date End Date Wanda Castillo PA PCP - General General Internal Medicine 05/16/[address] [place] [address] [place] [address] documented as of this encounter
--- OUTSIDE RECORDS SUMMARY | 2022-03-12 15:44 | XMS_ITS | Encounter Summary ---
:1950 Author Organization [facility] [place] [address] Care Team Providers Name Role Phone Wanda Castillo Primary Care Provider Encounter Details Date Type Department Care Team Description 11/04/2017 Telephone [place] [facility] [address] Social History Tobacco Use Types Packs/Day Years Used Date Never Smoker Smokeless Tobacco: Never Used Alcohol Use Standard Drinks/Week Comments No 0 (1 standard drink = 0.6 oz pure alcoho l) Sex Assigned at Date Recorded Not on file documented as of this encounter Miscellaneous Notes Telephone Encounter - Geneva Hernandez LPN - 11/04/2017 11:25 AM EDT ----- Message from Hesham Dwyer MD sent at 11/01/2017 11:27 AM EDT ----- Please call. X-rays show osteoarthritis of the hips, as we expected. Ask her to let us know if she wants to try another injection in that right hip. How is she doing with the sulindac? Any side effects so far? Would you also ask her if she told me that she had the flu? And did she go into the hospital? When? Thanks, CB ++++++++++++++++++++++++++ She would like another injection in the right hip please and she is doing well with the SUlindac. Noside effects so far. She also said that she had the flu in September and went to the hospital at that time. documented in this encounter Plan of Treatment Upcoming Encounters Date Type Specialty Care Team Description 05/28/2022 Appointment Pulmonology 05/28/2022 Office Visit Pulmonology Sonja Jenkins MD [facility] Pulmonary Medici [place], [place] [address] (Wo rk) documented as of this encounter Visit Diagnoses Not on filedocumented in this encounter Care Teams Punching Machine Operator Relationship Specialty Start Date End Date Wanda Castillo PA PCP - General General Internal Medicine 05/16/17 1 [facility] [place] [address] documented as of this encounter
--- OUTSIDE RECORDS SUMMARY | 2022-03-12 15:44 | XMS_ITS | Encounter Summary ---
:1950 Author Organization [facility] [place] [address] Care Team Providers Name Role Phone Wanda Castillo Primary Care Provider Reason for Visit Reason Onset Date Comments Medication Refill 11/20/2018 Encounter Details Date Type Department Care Team Description 11/20/2018 [place] [facility] [place]iana Yang, SIENA [facility] [place] [address] Social History Tobacco Use Types Packs/Day Years Used Date Never Smoker Smokeless Tobacco: Never Used Alcohol Use Standard Drinks/Week Comments No 0 (1 standard drink = 0.6 oz pure alcoho l) Sex Assigned at Date Recorded Not on file documented as of this encounter Miscellaneous Notes Telephone Encounter - Qiana Yang RN - 11/20/2018 10:22 AM EDT Ashley called asking for a refill on her Tramadol. I will process this request for her, and call her to let her know it was received. documented in this encounter Plan of Treatment Upcoming Encounters Date Type Specialty Care Team Description 05/28/2022 Appointment Pulmonology 05/28/2022 Office Visit Pulmonology Sonja Jenkins MD [facility] er Pulmonary Nataliya powers [place], [place] [address] (Wo rk) documented as of this encounter Visit Diagnoses Not on filedocumented in this encounter Care Teams Time Study Analyst Relationship Specialty Start Date End Date Wanda Castillo PA PCP - General General Internal Medicine 05/16/17 1 [facility] Internal [place] [address] documented as of this encounter
--- OUTSIDE RECORDS SUMMARY | 2022-03-12 15:44 | XMS_ITS | Encounter Summary ---
:1950 Author Organization [facility] [place] [address] Care Team Providers Name Role Phone Wanda Castillo Primary Care Provider Reason for Visit Reason Onset Date Comments Appointment 04/03/2018 Encounter Details Date Type Department Care Team Description 04/03/2018 Telephone Rheumatology at [facility] [place] Joel Washington, RN [facility] [place] [address] Social History Tobacco Use Types Packs/Day Years Used Date Never Smoker Smokeless Tobacco: Never Used Alcohol Use Standard Drinks/Week Comments No 0 (1 standard drink = 0.6 oz pure alcoho l) Sex Assigned at Date Recorded Not on file documented as of this encounter Miscellaneous Notes Telephone Encounter - Joel Washington RN - 04/03/2018 11:42 AM EDT Alexis (son) calls, leaves message stating would like to speak with Dr. Dwyer immediately. Call placedto Alexis to inquire as to nature of call, unavailable, message left with call back number provided. Alexis however does not appear to be listed as EC. Call placed to patient. She states was inquiring about scheduling an appointment. Will have medical secretary receptionist reach out to patient. Ashley was advised that this RN did not see Alexis listed as contact center manager and that this RN cannot provide health care information without consent. She states that is fine and that medical secretary receptionist may contact patient to set-up appointment. documented in this encounter Plan of Treatment Upcoming Encounters Date Type Specialty Care Team Description 05/28/2022 Appointment Pulmonology 05/28/2022 Office Visit Pulmonology Sonja Jenkins MD [facility] Pulmonary Medici [place], [place] [address] (Wo rk) documented as of this encounter Visit Diagnoses Not on filedocumented in this encounter Care Teams Data Virtualization Consultant Relationship Specialty Start Date End Date Wanda Castillo PA PCP - General General Internal Medicine 05/16/17 1 [facility] [place] [address] documented as of this encounter
--- OUTSIDE RECORDS SUMMARY | 2022-03-12 15:44 | XMS_ITS | Encounter Summary ---
:1950 Author Organization [facility] Address [address] [place] [address] Care Team Providers Name Role Phone Wanda Castillo Primary Care Provider Reason for Referral Consultation (Routine) - Closed Specialty Diagnoses / Procedures Referred By Contact Refer red To Contact Pulmonology Diagnoses Pulmonary fibrosis Weight loss Dysphagia, unspecified type Hesham Dwyer MD [facility] Pulmonology 5c [facility] D [facility] [place] [address] [place] [address] Referral ID Status Reason Start Date Expiration Date Visits V isits Requested Authorized [id number] Closed Consult, 05/16/2019 05/15/2020 1 1 Test & Treat Encounter Details Date Type Department Care Team Description 05/16/2019 Orders Only Rheumatology at [facility] [place] Hesham Dwyer Pulmonary fibrosis; [facility] MD Nell Weight loss; [facility] [place]ag[place] [address] RHEUMATOLOGY DEP T. [place], [place] [address] (Wo rk) Social History Tobacco [...] Visit Pulmonology Sonja Jenkins MD [facility] Pulmonary Medici [place], [place] [address] (Wo rk) Scheduled Referrals Name Type Priority Associated Diagnoses Order S chedule Referral to Outpatient Referral Routine Pulmonary fi brosis Ordered: Pulmonology Weight loss 05/16/2019 Dysphagia, unspecified type documented as of this encounter Visit Diagnoses Diagnosis Pulmonary fibrosis Postinflammatory pulmonary fibrosis Weight loss Loss of weight Dysphagia, unspecified type documented in this encounter Care Teams Board Of Directors Relationship Specialty Start Date End Date Wanda Castillo PA PCP - General General Internal Medicine 05/16/17 1 [facility] [place] [address] documented as of this encounter
--- OUTSIDE RECORDS SUMMARY | 2022-03-12 15:44 | XMS_ITS | Encounter Summary ---
:1950 Author Organization [facility] [place] [address] Care Team Providers Name Role Phone Wanda Castillo Primary Care Provider Reason for Visit Reason Onset Date Comments Follow-up 05/31/2019 Encounter Details Date Type Department Care Team Description 05/31/2019 Telephone Rheumatology at [facility] [place] Zari Maldonado, RN [facility] [place] [address] Social History Tobacco Use Types Packs/Day Years Used Date Never Smoker Smokeless Tobacco: Never Used Alcohol Use Standard Drinks/Week Comments No 0 (1 standard drink = 0.6 oz pure alcoho l) Sex Assigned at Date Recorded Not on file documented as of this encounter Miscellaneous Notes Telephone Encounter - Zari Maldonado RN - 05/31/2019 10:30 AM EDT ----- Message from Hesham Dwyer MD sent at 05/30/2019 12:56 PM EDT ----- Please call. She didn't get the lab tests we ordered. Can she get them done close to home? Tell her we're working on the pulmonary consult. Thanks, Mathew I spoke with Ashley and have faxed labs to [facility] in [place], [place]. Ashley apologizes and states she had something come up with her daughter and was not able to have labs done on day of her visit. documented in this encounter Plan of Treatment Upcoming Encounters Date Type Specialty Care Team Description 05/28/2022 Appointment Pulmonology 05/28/2022 Office Visit Pulmonology Sonja Jenkins MD [facility] Pulmonary Mediczion ne [place], [place] [address] (Wo rk) documented as of this encounter Visit Diagnoses Not on filedocumented in this encounter Care Teams Associate Director Finance Relationship Specialty Start Date End Date Wanda Castillo PA PCP - General General Internal Medicine 05/16/[address] [facility] [place] [address] documented as of this encounter
--- OUTSIDE RECORDS SUMMARY | 2022-03-12 15:44 | XMS_ITS | Encounter Summary ---
:1950 Author Organization [facility] [place] [address] Care Team Providers Name Role Phone Wanda Castillo Primary Care Provider Encounter Details Date Type Department Care Team Description 12/02/2017 Telephone [place] [facility] [place] [place] [address] Social History Tobacco Use Types Packs/Day Years Used Date Never Smoker Smokeless Tobacco: Never Used Alcohol Use Standard Drinks/Week Comments No 0 (1 standard drink = 0.6 oz pure alcoho l) Sex Assigned at Date Recorded Not on file documented as of this encounter Miscellaneous Notes Telephone Encounter - Zari Maldonado RN - 12/02/2017 8:57 AM EDT Call received about changing orders from Radiology. I advised that I am not able to change order forInjection/Aspiration and it will need to be done by Roofing Machine Tender as Dr. Dwyer is away. Ghislaine will have Radiology page Dr. Jacinto. documented in this encounter Plan of Treatment Upcoming Encounters Date Type Specialty Care Team Description 05/28/2022 Appointment Pulmonology 05/28/2022 Office Visit Pulmonology Sonja Jenkins MD [facility] er Pulmonary Nataliya powers [place], [place] [address] (Wo rk) documented as of this encounter Visit Diagnoses Not on filedocumented in this encounter Care Teams Fruit Receiver Relationship Specialty Start Date End Date Wanda Castillo PA PCP - General General Internal Medicine 05/16/17 [address] [facility] [place] [address] documented as of this encounter
--- OUTSIDE RECORDS SUMMARY | 2022-03-12 15:44 | XMS_ITS | Encounter Summary ---
:1950 Author Organization [facility] [address] Care Team Providers Name Role Phone Wanda Castillo Primary Care Provider Encounter Details Date Type Department Care Team Description 11/13/2017 Orders Only Rheumatology at [facility] Hesham Dwyer Primary osteoarthritis [facility] MD Nell [place] [address] RHEUMATOLOGY DEPT. [phone] [place], [place] [address] (Wo rk) Social History Tobacco [...] [facility] Pulmonary Mediczion [place], [place] [address] (Wo rk) documented as of this encounter Results XR Fluoro Guided Joint Injection Large Right (12/02/2017 9:53 AM EDT) Anatomical Region Laterality Modality Right Radio Fluoroscopy Specimen (Source) Anatomical Location Collection Method / Collectio n Time Received Time / Laterality Volume Impressions 12/02/2017 12:45 PM EDT Uneventful right hip joint injection under fluoroscopy. Resident/Fellow: None Attending: There was no attending presen t for this procedure Procedure performed by DYLON Ferrer RN Narrative 12/02/2017 12:45 PM EDT HISTORY: Persistent right hip pain from OA. Previous good response to hip injection by radiology [facility] 12/2012. Plea se repeat injection with a corticosteroid preparation of radiologis t's choice. RIGHT HIP JOINT INJECTION UNDER FLUOROSC OPY TECHNIQUE: After an extensive conversation with the patient regarding risks and benefits, oral and written consent were obtained.? A pre- procedural time-out was performed, including review of the patie nt's relevant electronic medical record and allergies, as per [facility] protocol. The patient was placed supine on the flu oroscopic table. ??The skin overlying the right anterior hip was prepped and drape d in the usual aseptic manner. 1% Lidocaine was used to achieve local anes thesia. Under fluoroscopic guidance, 22 gauge 3.5 spinal needle was advanced in to the joint space. ??Small amount of air was injected to document needle placemen t. ??A mixture of Ropivacaine and triamcinolone acetonide was injected. Al l needles removed at end of procedure. FINDINGS: 1. ??Small amount of injected air in the right hip joint space. 2. ??PAIN SCORE: ??Before: 7/10 ??After: 5/10 3. Fluoroscopy time: 0.05 minutes 4. Medications: ??Lidocaine 1% - <5 ml, for subcutaneou s anesthesia ??Ropivacaine HCL ??0.5% - 3 ml ??Triamciolone Acetonide ??- 40 mg COMPLICATIONS: ??None immediate. POST-PROCEDURE CARE: Information regardi ng monitor of infection, post- procedural pain and management of steroi d flare were reviewed with patient. Procedure Note Saima Coronado, BREANNE - 12/02/2017Forma tting of this note might be different from the original. HISTORY: Persistent right hip pain from OA. Previous good response to hip injection by radiology [facility] 12/2012. Plea se repeat injection with a corticosteroid preparation of radiologis t's choice. RIGHT HIP JOINT INJECTION UNDER FLUOROSC OPY TECHNIQUE: After an extensive conversation with the patient regarding risks and benefits, oral and written consent were obtained.? A pre- procedural time-out was performed, including review of the patie nt's relevant electronic medical record and allergies, as per [facility] protocol. The patient was placed supine on the flu oroscopic table. The skin overlying the right anterior hip was prepped and drape d in the usual aseptic manner. 1% Lidocaine was used to achieve local anes thesia. Under fluoroscopic guidance, 22 gauge 3.5 spinal needle was advanced in to the joint space. Small amount of air was injected to document needle placemen t. A mixture of Ropivacaine and triamcinolone acetonide was injected. Al l needles removed at end of procedure. FINDINGS: 1. Small amount of injected air in the r ight hip joint space. 2. PAIN SCORE: Before: 7/10 After: 5/10 3. Fluoroscopy time: 0.05 minutes 4. Medications: Lidocaine 1% - <5 ml, for subcutaneous anesthesia Ropivacaine HCL 0.5% - 3 ml Triamciolone Acetonide - 40 mg COMPLICATIONS: None immediate. POST-PROCEDURE CARE: Information regardi monitor of infection, post- procedural pain and management of steroi d flare were reviewed with patient. IMPRESSION Uneventful right hip joint injection und er fluoroscopy. Resident/Fellow: None Attending: There was no attending presen t for this procedure Procedure performed by DYLON Ferrer RN Hesham Dwyer MD IMG FLUORO ORDERABLES documented in this encounter Visit Diagnoses Diagnosis Primary osteoarthritis of right hip Primary localized osteoarthrosis, pelvic region and thigh Primary osteoarthritis of right hip Primary localized osteoarthrosis, pelvic region and thigh documented in this encounter Care Teams Forcer Maker Relationship Specialty Start Date End Date Wanda Castillo PA PCP - General General Internal Medicine 05/16/17 1 [facility] [place] [address] documented as of this encounter
--- OUTSIDE RECORDS SUMMARY | 2022-03-12 15:44 | XMS_ITS | Encounter Summary ---
:1950 Author Organization [facility] Address [facility] [address] [place] [address] Care Team Providers Name Role Phone Wanda Castillo Primary Care Provider Encounter Details Date Type Department Care Team Description 12/02/2017 Hospital XRay [place] [facility] Hesham Dwyer Primary Encounter 1 [facility] MD Nell osteoarthritis of Dr [facility] [place] [address] RHEUMATOLOGY DEPT. [phone] [place], [place] [address] Social History Tobacco Use Types [...] Sonja Jenkins MD [facility] er Pulmonary Medici [place], [place] [address] (Wo rk) documented as of this encounter Procedures Procedure Name Priority Date/Time Associated Diagnosis Comme nts XR FLUORO Routine 12/02/2017 9:53 AM Primary osteoarthritis Results for this INJECTION DRAINAGE EDT of right hip procedure are in JOINT LG RIGHT the results section. documented in this encounter Results XR Fluoro Guided Joint [...] good response to hip injection by radiology [facility] 12/2012. Plea se repeat injection with a corticosteroid preparation of radiologis t's choice. RIGHT HIP JOINT INJECTION UNDER FLUOROSC OPY TECHNIQUE: After an extensive conversation with the patient regarding risks and benefits, oral and written consent were obtained.? A pre- procedural time-out was performed, including review of the patie nt's relevant electronic medical record and allergies, as per [facility] protocol. The patient was placed supine on [...] good response to hip injection by radiology [facility] 12/2012. Plea se repeat injection with a corticosteroid preparation of radiologis t's choice. RIGHT HIP JOINT INJECTION UNDER FLUOROSC OPY TECHNIQUE: After an extensive conversation with the patient regarding risks and benefits, oral and written consent were obtained.? A pre- procedural time-out was performed, including review of the patie nt's relevant electronic medical record and allergies, as per [facility] protocol. The patient was placed supine on [...] COMPLICATIONS: None immediate. POST-PROCEDURE CARE: Information regardi ng monitor [...] region and thigh documented in this encounter Administered Medications Inactive Administered Medications - up to 3 most recent administrations Medication Order MAR Action Action Date Dose Rate Site ROpivacaine (PF) 5 mg/mL (0.5 %) 4 Given 12/02/2017 10:15 AM EDT mL with triamcinolone acetonide 40 mg injection Intra-articular, ONCE, 1 dose, On 12/02/17 at 1015 documented in this encounter Care Teams Librarian Head Relationship Specialty Start Date End Date Wanda Castillo PA PCP - General General Internal Medicine 9/29/17 6/20/2 1 [facility] [place] [address] documented as of this encounter
--- OUTSIDE RECORDS SUMMARY | 2022-03-12 15:44 | XMS_ITS | Encounter Summary ---
:1950 Author Organization [facility] Address [address] [place] [address] Care Team Providers Name Role Phone Wanda Castillo Primary Care Provider Encounter Details Date Type Department Care Team Description 10/05/[address] [facility] [place] Flore[place] Farmer MD [facility] [place] [address] CARDIOLOGY DEPT [phone] [place], [place] [address] (Wo rk) Social History Tobacco Use Types Packs/Day Years Used Date Never Smoker Smokeless Tobacco: Never Used Alcohol Use Standard Drinks/Week Comments No 0 (1 standard drink = 0.6 oz pure alcoho l) Sex Assigned at Date Recorded Not on file documented as of this encounter Miscellaneous Notes Telephone Encounter - Florencia Farmer MD - 10/05/2018 12:53 AM EST Outside facility: [facility]. Outside provider: Dr. Melquiades Rogers. Time of call: 12:38 AM. Reason of call: telephonic consultation. 68-year-old lady with no known cardiac history who presented to outside hospital with chest pressure, her troponins x2 are negative. She has cough and was given breathing treatment which improved her symptoms. subsequently she was given nitroglycerin and her pain resolved. Blood pressure 118/62, heartrate 75, respiratory rate 16, oxygen saturation 95%. CT angiogram of the chest negative for PE or pneumonia proBNP is normal. Troponin is negative. EKG was reviewed with outside provider lead by lead and does not show any acute ischemic change when compared to EKG from 2018. I have recommended to the outside provider that she should be admitted for observation ruled out for ACS. Currently she is pain- free. She will be treated with aspirin, heparin. She will get series of EKG. I have advised outside provider to give us a call if there was any change or concern. If her troponin remained negative and she is chest pain-free without dynamic EKG changes she may be a candidate for stress test. documented in this encounter Plan of Treatment Upcoming Encounters Date Type Specialty Care Team Description 05/28/2022 Appointment Pulmonology 05/28/2022 Office Visit Pulmonology Sonja Jenkins MD [facility] er Pulmonary Mediczion powers [place], [place] [address] (Wo rk) documented as of this encounter Visit Diagnoses Not on filedocumented in this encounter Care Teams Methods Engineer Relationship Specialty Start Date End Date Wanda Castillo PA PCP - General General Internal Medicine 05/16/17 1 [facility] [place] [address] documented as of this encounter
--- OUTSIDE RECORDS SUMMARY | 2022-03-12 15:44 | XMS_ITS | Encounter Summary ---
:1950 Author Organization [facility] [place] [address] Care Team Providers Name Role Phone Wanda Castillo Primary Care Provider Reason for Visit Reason Onset Date Comments Medication Refill 04/28/2018 Encounter Details Date Type Department Care Team Description 04/28/2018 Refill [place] [facility] [place] Washington, RN [facility] [place] [address] Social History Tobacco Use Types Packs/Day [...] MD [facility] er Pulmonary Medici [place], [place] [address] (Wo rk) documented as of this encounter Visit Diagnoses Not on filedocumented in this encounter Care Teams Laboratory Helper Relationship Specialty Start Date End Date Wanda Castillo PA PCP - General General Internal Medicine 05/16/[address] [place] [address] [place] [address] documented as of this encounter
--- OUTSIDE RECORDS SUMMARY | 2022-03-12 15:44 | XMS_ITS | Encounter Summary ---
:1950 Author Organization [facility] [place] [address] Care Team Providers Name Role Phone Wanda Castillo Primary Care Provider Reason for Visit Reason Onset Date Comments Medication Refill 01/08/2019 Encounter Details Date Type Department Care Team Description 01/08/2019 Refill Rheumatology at [facility] Hesham Dwyer, Lumbosacral spondylosis with out myelopathy; [facility] Disorder of bursae and tendons in should er region; [facility] Primary osteoarthritis of hip, [place] [address] RHEUMATOLOGY DEPT. [phone] [place], [place] [address] (Wo rk) Social History Tobacco [...] 05/28/2022 Office Visit Pulmonology Sonja Jenkins MD [facility] er Pulmonary Mediczion [place], [place] [address] (Wo rk) documented as of this encounter Visit Diagnoses Diagnosis Lumbosacral spondylosis without myelopat hy Disorder of bursae and tendons in should er region Disorders of bursae and tendons in shoul jhon region, unspecified Primary osteoarthritis of hip, unspecifi ed laterality documented in this encounter Care Teams Director Dietetics Department Relationship Specialty Start Date End Date Wanda Castillo PA PCP - General General Internal Medicine 05/16/17 1 [facility] [place] [address] documented as of this encounter
--- OUTSIDE RECORDS SUMMARY | 2022-03-12 15:45 | XMS_ITS | Encounter Summary ---
:1950 Author Organization [facility] Address [address] [place] [address] Care Team Providers Name Role Phone Julieta Bonilla Primary Care Provider Reason for Visit Reason Onset Date Comments Prior Authorization 09/26/2015 voltaren gel-no PA n eeded Encounter Details Date Type Department Care Team Description 09/26/2015 Telephone Rheumatology at [facility] Bertha Mccartney Prior Authorization [facility] (voltaren gel-no PA Drive needed) [place] [address] Social History Tobacco Use Types Packs/Day Years Used Date Never Smoker Smokeless Tobacco: Never Used Alcohol Use Standard Drinks/Week Comments No 0 (1 standard drink = 0.6 oz pure alcoho l) Sex Assigned at Date Recorded Not on file documented as of this encounter Miscellaneous Notes Telephone Encounter - Bertha Mccartney - 09/26/2015 12:56 PM EST Received fax from [facility] saying that no prior authorization is needed for the patient's Rx for Voltaren Gel 1%. documented in this encounter Plan of Treatment Upcoming Encounters Date Type Specialty Care Team Description 05/28/2022 Appointment Pulmonology 05/28/2022 Office Visit Pulmonology Sonja Jenkins MD [facility] er Pulmonary Mediczion [place], [place] [address] (Wo rk) documented as of this encounter Visit Diagnoses Not on filedocumented in this encounter Care Teams Gear Setter Relationship Specialty Start Date End Date Julieta Bonilla PA PCP - General 04/22/15 05/15/17 [address] [place] [address] documented as of this encounter
--- OUTSIDE RECORDS SUMMARY | 2022-03-12 15:45 | XMS_ITS | Encounter Summary ---
:1950 [place] [address] Care Team Providers Name Role Phone Rober Cho MD Primary Care Provider Reason for Visit Reason Onset Date Comments Medication Refill 02/27/2017 Encounter Details Date Type Department Care Team Description 02/27/2017 Refill Rheumatology at [facility] [place] [address] Social History Tobacco Use Types Packs/Day [...] 05/28/2022 Office Visit Pulmonology Sonja Jenkins MD [facility] er Pulmonary Medici [place], [place] [address] (Wo rk) documented as of this encounter Visit Diagnoses Not on filedocumented in this encounter Care Teams Certified Indoor Environmentalist Relationship Specialty Start Date End Date Rober Cho MD PCP - General Family Medicine 02/05/[address] [place] [id number] documented as of this encounter
--- OUTSIDE RECORDS SUMMARY | 2022-03-12 15:45 | XMS_ITS | Encounter Summary ---
:1950 Author Organization [facility] [place] [address] Care Team Providers Name Role Phone Julieta Bonilla Primary Care Provider Encounter Details Date Type Department Care Team Description 12/31/2016 Telephone Rheumatology at [facility] [place] [address] Social History Tobacco Use Types Packs/Day Years Used Date Never Smoker Smokeless Tobacco: Never Used Alcohol Use Standard Drinks/Week Comments No 0 (1 standard drink = 0.6 oz pure alcoho l) Sex Assigned at Date Recorded Not on file documented as of this encounter Miscellaneous Notes Telephone Encounter - Geneva Hernandez LPN - 12/31/2016 3:51 PM EDT Pt phones wanting a refill on her RX for Tramadol which has been sent to the pharmacy today. I triedto RTC to the pt, but the number listed is not a working number. documented in this encounter Plan of Treatment Upcoming Encounters Date Type Specialty Care Team Description 05/28/2022 Appointment Pulmonology 05/28/2022 Office Visit Pulmonology Sonja Jenkins MD [facility] Pulmonary Nataliya powers [place], [place] [address] (Wo rk) documented as of this encounter Visit Diagnoses Not on filedocumented in this encounter Care Teams Metallurgical Or Materials Technician Relationship Specialty Start Date End Date Julieta Bonilla PA PCP - General 04/22/15 05/15/17 [address] [place] [address] documented as of this encounter
--- OUTSIDE RECORDS SUMMARY | 2022-03-12 15:45 | XMS_ITS | Encounter Summary ---
:1950 Author Organization [facility] [place] [address] Care Team Providers Name Role Phone Wanda Castillo Primary Care Provider Reason for Visit Reason Onset Date Comments Prior Authorization 06/04/2017 Encounter Details Date Type Department Care Team Description 06/04/2017 Telephone Rheumatology at [facility] Leslie Mora [facility] [place] [place] [address] Social History Tobacco Use Types Packs/Day Years Used Date Never Smoker Smokeless Tobacco: Never Used Alcohol Use Standard Drinks/Week Comments No 0 (1 standard drink = 0.6 oz pure alcoho l) Sex Assigned at Date Recorded Not on file documented as of this encounter Miscellaneous Notes Telephone Encounter - Leslie Mora - 06/04/2017 10:25 AM EDT Medication Prior Authorization [facility]IL[facility] Medication name/dose/directions: DICLOFENAC 1% - APPLY 2G 4X DAILY Rationale for request: OSTEOARTHRITIS Health plan: [employer] (FAX) Authorizing commercial pest control representative name: ELAYNE Faxed to health plan on: 06/04/17 Health plan decision: APPROVED Quantity approved: Authorization number: [id number] Start date: 06/04/17 End date: 08/17/18 documented in this encounter Plan of Treatment Upcoming Encounters Date Type Specialty Care Team Description 05/28/2022 Appointment Pulmonology 05/28/2022 Office Visit Pulmonology Sonja Jenkins MD [facility] Pulmonary Mediczion [place], [place] [address] (Wo rk) documented as of this encounter Visit Diagnoses Not on filedocumented in this encounter Care Teams Weather Algorithm Scientist Relationship Specialty Start Date End Date Wanda Castilol PA PCP - General General Internal Medicine 05/16/17 1 [facility] [place] [address] documented as of this encounter
--- OUTSIDE RECORDS SUMMARY | 2022-03-12 15:45 | XMS_ITS | Encounter Summary ---
:1950 Author Organization [facility] Address [address] [place] [address] Care Team Providers Name Role Phone Julieta Bonilla Primary Care Provider Reason for Visit Reason Onset Date Comments Medication Refill 12/03/2016 Encounter Details Date Type Department Care Team Description 12/03/2016 Refill Rheumatology at [facility] Hesham Dwyer MD [facility] [place] [address] RHEUMATOLOGY DEPT. [phone] [place], [place] [address] (Wo rk) Social History Tobacco [...] MD [facility] er Pulmonary [place] [place] [address] (Wo rk) documented as of this encounter Visit Diagnoses Not on filedocumented in this encounter Care Teams Laboratory Animal Care Veterinarian Relationship Specialty Start Date End Date Julieta Bonilla PA PCP - General 04/22/15 05/15/[address] [place] [address] documented as of this encounter
--- OUTSIDE RECORDS SUMMARY | 2022-03-12 15:45 | XMS_ITS | Encounter Summary ---
:1950 Author Organization [facility] Address [address] [place] [address] Care Team Providers Name Role Phone Julieta Bonilla Primary Care Provider Encounter Details Date Type Department Care Team Description 07/23/2016 Office Visit Rheumatology at [facility] Hesham Dwyer Weight loss; [facility] MD Nell Lumbar degenerative disc disease; [facility] Back pain, unspecified back location, unspecified back pain laterality, unspecified chronicity; [place], [place] Primary osteoarthritis involving multipl e joints; [id number] [address]PT[address] Ankle fracture, left, sequela; [phone] [place], [place] [address] Dysphagia, unspecified type; [phone] (Wo rk) Arthralgia, unspecified joint Social History Tobacco Use Types Packs/Day Years Used Date Never Smoker Smokeless Tobacco: Never Used Alcohol Use Standard Drinks/Week Comments No 0 (1 standard drink = 0.6 oz pure alcoho l) Sex Assigned at Date Recorded Not on file documented as of this encounter Last Filed Vital Signs Vital Sign Reading Time Taken Comments Blood Pressure 123/64 07/23/2016 10:35 AM EST Pulse 65 07/23/2016 10:35 AM EST Temperature 36.5 ??C (97.7 ??F) 07/23/2016 10:35 AM EST Respiratory Rate - - Oxygen Saturation 99% 07/23/2016 10:35 AM EST Inhaled Oxygen Concentration - - Weight 52.6 kg (116 lb) 07/23/2016 10:35 AM EST Height 154.9 cm (5' 1) 07/23/2016 10:35 AM EST Body Mass Index 21.92 07/23/2016 10:35 AM EST documented in this encounter Patient Instructions Patient InstructionsHesham Dwyer MD - 07/23/2016 10:30 AM EST Get labs and x-rays today. Call for results. Try Celebrex 100 mg at night. Take with something on your stomach. Juarez out lidoderm patches in [place] and [place]. Schedule barium swallow. Follow up in 4 months, but stay in touch. documented in this encounter Progress Notes Hesham Dwyer MD - 07/23/2016 10:30 AM EST Rheumatology Clinic: Dr. Dwyer 07/23/2016 [id number] Madie Gomez is seen in follow-up of her widespread osteoarthritis. After her last visit on 01/23/2016, we did send her to the spine center. They recommended further exercises, including stretching. They told her that if that didn't help, she might be considered for injection therapy. However she didn't follow up on thatand the exercises didn't really help all that much. She does some stretching whenshe first gets up in the morning, but her back remains her biggest problem. She has morning stiffness there in the lower thoracic/upper lumbar area that lasts anywhere from 10 to 60 minutes before she can get going. Medication-call, she continues to rely mainly on tramadol, taking 100 mg 3 times a day. She wishes out loud again that there was something stronger she could take. At one point in time, she was on narcotics. She has also been using Voltaren gel, especially on her hands and her shoulders. She does have osteoarthritis of the hands in addition to the spine and several other areas of involvement as well.We went over her experience with analgesics. She finds Tylenol to be unhelpful. She finds ibuprofen to be helpful, but when she takes that, or any other anti-inflammatory for that matter, regularly, she develops upper GI problems. I specifically asked her if that happened with Celebrex in the past andsam said yes, although it's been many years. Unfortunately, she's started to lose weight again. This has been an on again/off again problem and now it's on again. We noted at her last visit that she did finally put on some weight, going from 119 to 124 pounds. She's now back down to 116 and it shows. She says that she eats all the time, including eating 4 hotdogs yesterday. Her family encourages her to eat relentlessly. We went over symptoms inmore detail. She does have difficulty swallowing and she feels that the food gets stuck about mcc down her esophagus. She has some chest pressure pain when that happens. An example is that when sheeats a sandwich, she has to peel off the crust completely to make it at all palatable. But if she sena s that she'll be able to eat, albeit with just small bites and washing it down with liquids. She denies any significant dryness in the mouth. She doesn't really have any abdominal pain and her bowel habits have not changed. She also tells me that she fractured her left ankle back on April 09, or coming up on 4 months ago.Apparently there was some slow healing because she still in a walking cast. She requested follow-up x-rays today and I think that's reasonable. She would really like to get out of the cast at this point. On a social note, she reports that she moved from [facility] to [facility], [place] border, about 10 [place] from [facility]. She is really happy up there. She finds it to be very peaceful. Her son is able to get work locally as a tier truck driver. Her daughter and her [id number] both work at [employer], which has just started hiring people again. Patient Active Problem List Diagnosis Code ??? Disorder of bursae and tendons in shoulder region M71.9, M67.919 ??? Primary osteoarthritis of left hand M19.042 ??? Osteoarthrosis, unspecified whether generalized or localized, lower leg M17.9 ??? Back pain M54.9 ??? Lumbar degenerative disc disease M51.36 ??? Degenerative arthritis of cervical spine M47.812 ??? Lumbosacral spondylosis without myelopathy M47.817 ??? Right hip pain M25.551 ??? Osteoarthrosis, unspecified whether generalized or localized, pelvic region and thigh M16.9 ??? Abdominal pain, RUQ (right upper quadrant) R10.11 ??? SBO (small bowel obstruction) K56.69 ??? Primary osteoarthritis of hip M16.10 ??? Weight loss R63.4 ??? Osteoarthritis of right hand M19.041 ??? Primary osteoarthritis involving multiple joints M15.0 ??? Ankle fracture, left S82.892A ??? Dysphagia R13.10 ??? Arthralgia M25.50 Medications 07/23/16 1040 Medication Sig Taking? traMADol (ULTRAM) 50 mg Tablet Take 1-2 tablets by mouth every 8 hours if needed. Yes diclofenac (VOLTAREN) 1 % Gel Apply 2 g topically 4 times daily. Yes acetaminophen (TYLENOL) 500 mg Tablet Take 500-1,000 mg by mouth every 6 hours as needed for Pain. Yes desonide (DESOWEN) 0.05 % Lotion Prn Yes cyanocobalamin, vitamin B-12, 1,000 mcg/mL Solution every 30 days. Yes amitriptyline (ELAVIL) 50 mg Tablet Take 1 tablet by mouth nightly. Yes multivitamin (DAILY MULTIPLE) tablet Yes celecoxib (CELEBREX) 100 mg Capsule Take 1 capsule by mouth nightly. lidocaine (LIDODERM) 5 % Adhesive Patch, Medicated Apply 1 patch onto the skin daily. (leave on for 12 hours and remove for 12 hours) omeprazole (PRILOSEC) 20 mg Capsule, Delayed Release(E.C.) Take 1 capsule by mouth daily. Patient not taking: Reported on 07/23/2016 oxyCODONE (ROXICODONE) 5 mg Tablet Take 1-2 tablets by mouth every 4 hours as needed for Pain. No driving, no alcohol Patient not taking: Reported on 07/23/2016 Physical Exam: She actually looks well, although frail and thin. She definitely appears to have lostweight since the last visit, about 8 pounds or so, and she doesn't have much to work with. Blood pressure 123/64, pulse 65, temperature 36.5 ??C (97.7 ??F), temperature source Oral, height 154.9 cm (5' 1), weight 52.6 kg (116 lb), SpO2 99 %. Skin: Clear. HEENT: Unremarkable. Lungs: Clear. No crackles or wheezing today, which she's had in the past. Heart: Regular rhythm and rate without murmur, gallop, or rub. Abdomen: Benign. No masses, tenderness, or organomegaly. Extremities: No edema. Good distal pulses. Musculoskeletal: She has degenerative changes in her hands without synovitis. Her wrists, elbows, and left shoulder move well. Her right shoulder has impingement. The area of her back pain is very discrete in the low thoracic/upper lumbar area, and she actually has an abnormal bony prominence there one of her vertebral bodies. She is tender right over that point. Her hips move well. Her knees have mild crepitance, but otherwise move well. The rest of her lower extremity exam was deferred. Neuro: Grossly intact. Assessment: We had a long discussion about her situation and I went back and reviewed her medical record. In terms of the weight loss, she's had essentially normal labs although she did have an elevated serum protein at 8.2, although most of that was albumin. We'll check an SPEP. We will also go aheadand get a barium swallow, which we have discussed in the past but because she was getting better at her last visit we decided not to follow through on that. Now I think we should. Her daughter is coming down for an appointment on August 27 and perhaps she can schedule for that day so she can get a ride. I did review previous imaging studies and she has not had lumbar spine films in at least 5 years. I did review a CT scan from 2013 and one could see some fairly dramatic degenerative and scoliotic changes in her upper lumbar spine at L1-L2 and the radiologist commented on that. We'll get dedicated films today. We'll also get follow-up films of her left ankle to make sure she is healing. If so, she can get out of that walking cast. Therapeutically, I convinced her to try Celebrex again, but just 100 mg in the evening/night. She can take that with some food on her stomach. She'll see how that goes. We also wrote her prescription for Lidoderm patches. Sometimes insurance can be difficult with that, so she'll juarez that out not only in the [place], but also in [place]. I did tell her there is now on [id number] version that is kavon little less potent that may be effective for her. Her back pain is fairly discrete and therefore 1patch right over that upper lumbar area might be very helpful in her situation. We will see. In the meantime, she'll continue the tramadol and the Voltaren gel. Future considerations would include Flexeril at night to help with her disrupted sleep and her back issues, and also possibly duloxetine. We'll discuss that at the next visit. I'll see her in follow-up in 4 months, but we will stay in touch. We gave the patient the following specific instructions: Patient Instructions Get labs and x-rays today. Call for results. Try Celebrex 100 mg at night. Take with something on your stomach. [place]arez out lidoderm patches in [place]. Schedule barium swallow. Follow up in 4 months, but stay in touch. Over 30 minutes of the 40 minute follow-up were spent discussing these problems and their treatment options in [id number] counseling. Orders Placed This Encounter Procedures ??? XR Ankle Min 3 views Left (Generic) ??? XR Lumbar Spine 2 Or 3 Views (Generic) ??? XR Fluoro Barium Swallow ??? CBC (with Diff) ??? Comprehensive metabolic panel (non-fasting) ??? Protein Electrophoresis, serum ??? Sedimentation rate ??? High Sensitivity CRP ??? Hemogram ??? Differential, Automated Visit Diagnoses: 1. Weight loss XR Fluoro Barium Swallow CBC (with Diff) Comprehensive metabolic panel (non-fasting) Protein Electrophoresis, serum Sedimentation rate High Sensitivity CRP CBC (with Diff) Comprehensive metabolic panel (non-fasting) Protein Electrophoresis, serum Sedimentation rate High Sensitivity CRP Hemogram Differential, Automated 2. Lumbar degenerative disc disease XR Lumbar Spine 2 Or 3 Views (Generic) celecoxib (CELEBREX) 100 mg Capsule lidocaine (LIDODERM) 5 % Adhesive Patch, Medicated 3. Back pain, unspecified back location, unspecified back pain laterality, unspecified chronicity XRLumbar Spine 2 Or 3 Views (Generic) celecoxib (CELEBREX) 100 mg Capsule lidocaine (LIDODERM) 5 % Adhesive Patch, Medicated 4. Primary osteoarthritis involving multiple joints celecoxib (CELEBREX) 100 mg Capsule 5. Ankle fracture, left, sequela XR Ankle Min 3 views Left (Generic) 6. Dysphagia, unspecified type XR Fluoro Barium Swallow CBC (with Diff) Comprehensive metabolic panel (non-fasting) Protein Electrophoresis, serum Sedimentation rate High Sensitivity CRP CBC (with Diff) Comprehensive metabolic panel (non-fasting) Protein Electrophoresis, serum Sedimentation rate High Sensitivity CRP Hemogram Differential, Automated 7. Arthralgia, unspecified joint CBC (with Diff) Comprehensive metabolic panel (non-fasting) Protein Electrophoresis, serum Sedimentation rate High Sensitivity CRP celecoxib (CELEBREX) 100 mg Capsule CBC (with Diff) Comprehensive metabolic panel (non-fasting) Protein Electrophoresis, serum Sedimentation rate High Sensitivity CRP Hemogram Differential, Automated Results for MADIE GOMEZ ( ) Ref. Range 07/23/2016 12:20 WBC Latest Ref Range: 4.0 - 9.5 x10(3)/mcL 5.7 RBC Latest Ref Range: 4.00 - 5.21 x10(6)/mcL 4.70 Hemoglobin Latest Ref Range: 11.7 - 15.5 gm/dL 14.1 Hematocrit Latest Ref Range: 35.7 - 45.8 % 42.4 MCV Latest Ref Range: 82.6 - 94.4 fL 90.2 MCH Latest Ref Range: 27.1 - 32.0 pg 30.0 MCHC Latest Ref Range: 31.7 - 35.0 gm/dL 33.3 RDWSD Latest Ref Range: 37.0 - 46.0 fL 44.2 RDWCV Latest Ref Range: 11.5 - 14.1 % 13.3 Platelets Latest Ref Range: 145 - 357 x10(3)/mcL 189 MPV Latest Ref Range: 7.6 - 12.9 fL 8.9 nRBC % Auto Latest Units: % 0.0 nRBC Abs Auto Latest Ref Range: 0.000 - 0.000 x10(3)/mcL 0.000 Neutr Abs (ANC) Latest Ref Range: 1.70 - 6.10 x10(3)/mcL 2.18 Neutrophils % Latest Units: % 38.0 Immature Gran % Latest Units: % 0.40 Lymphocytes % Latest Units: % 50.3 Monocytes % Latest Units: % 6.0 Eosinophils % Latest Units: % 4.6 Basophils % Latest Units: % 0.7 Linda Gran Abs Latest Ref Range: 0.00 - 0.04 x10(3)/mcL 0.02 Lymphocytes Abs Latest Ref Range: 0.9 - 3.2 x10(3)/mcL 2.9 Monocyte Abs Latest Ref Range: 0.3 - 0.9 x10(3)/mcL 0.3 Eosinophils Abs Latest Ref Range: 0.0 - 0.4 x10(3)/mcL 0.3 Basophils Abs Latest Ref Range: 0.0 - 0.1 x10(3)/mcL 0.0 Sed Rate Latest Ref Range: 0 - 20 mm/hr 9 Sodium Latest Ref Range: 135 - 145 mmol/L 140 Potassium Latest Ref Range: 3.5 - 5.0 mmol/L 4.4 Chloride Latest Ref Range: 98 - 107 mmol/L 101 CO2 Latest Ref Range: 22 - 31 mmol/L 26 Anion Gap Latest Ref Range: 5 - 15 mmol/L 13 BUN Latest Ref Range: 8 - 18 mg/dL 9 Creatinine Latest Ref Range: 0.70 - 1.20 mg/dL 0.73 Estimated GFR Latest Ref Range: >=60 >60 Glucose Lvl Latest Ref Range: 65 - 199 mg/dL 100 Calcium Latest Ref Range: 8.5 - 10.5 mg/dL 9.5 Total Protein Latest Ref Range: 6.1 - 8.0 gm/dL 7.8 Albumin Latest Ref Range: 3.2 - 5.2 gm/dL 4.7 Total Bilirubin Latest Ref Range: 0.2 - 1.3 mg/dL 0.5 Bili, Direct Latest Ref Range: 0.0 - 0.3 mg/dL 0.1 Alk Phos Latest Ref Range: 40 - 104 unit/L 93 AST Latest Ref Range: 0 - 30 unit/L 27 ALT Latest Ref Range: 0 - 30 unit/L 14 Total Prot Elec Latest Ref Range: 6.1 - 8.0 gm/dL 7.3 Albumin Elect Latest Ref Range: 3.60 - 6.00 gm/dL 4.56 Alpha1-Globulin Latest Ref Range: 0.10 - 0.30 gm/dL 0.18 Alpha2-Globulin Latest Ref Range: 0.40 - 0.90 gm/dL 0.82 Beta Globulin Latest Ref Range: 0.50 - 1.00 gm/dL 0.68 Gamma Globulin Latest Ref Range: 0.50 - 1.30 gm/dL 1.07 M1 Band Unknown None Detected CRP High Sens Latest Units: mg/L 0.4 Radiologist: Barrington EXAMINATION: XR ANKLE MIN 3 VIEWS LEFT (GENERIC) CLINICAL HISTORY: Follow up on fracture. Healing? TECHNIQUE: AP oblique and lateral views left ankle COMPARISON: None ?? FINDINGS: Ankle mortise remain symmetric. Well-corticated avulsion fragments noted at the tip of the lateral malleolus. Cortical remodeling and distal concavity of the distal femur and malleoli or lucency noted. Focal persistent fracture line without displacement noted at the fibular tip. ?? IMPRESSION Healing fracture Radiologist: Kelly EXAMINATION: XR LUMBAR SPINE 2 OR 3 VIEWS (GENERIC) CLINICAL HISTORY: Significant degen scoliosis seen on CT upper lumbar 2014. Worsening pain. Please eval. TECHNIQUE: 2 views lumbar spine FINDINGS: Standing views of the lumbar spine compared to prior imaging 07/16/2012. ?? There remains a levoconvex rotatory scoliotic curvature centered at L1-2. Significant intervertebral degenerative changes are present at L1-2 L2-3. There remains grade 1 anterolisthesis of L4 at L3-4 and significant posterior facet arthropathy. Associated degenerative changes and osteophyte formation are present. There is significant degenerative changes with narrowing at L5-S1 and subchondral sclerosis. ?? Unchanged appearance to multiple surgical clips in the left upper quadrant and right upper quadrant. Pelvic side sidewall clips are present. IMPRESSION: Further progression of degenerative changes most marked at L1-2, and L2-3. Degenerative narrowing at L5-S1. Significant progression of grade 1 retrolisthesis of L3 at L4 now measuring approximately 10 mm. documented in this encounter Plan of Treatment Upcoming Encounters Date Type Specialty Care Team Description 05/28/2022 Appointment Pulmonology 05/28/2022 Office Visit Pulmonology Sonja Jenkins MD [facility] [place], [place] [address] (Wo rk) documented as of this encounter Procedures Procedure Name Priority Date/Time Associated Comments Diagnosis HEMOGRAM Routine 07/23/2016 12:20 Weight loss Results for this PM EST Dysphagia, procedure are i n unspecified type the results Arthralgia, section. unspecified joint DIFFERENTIAL, Routine 07/23/2016 12:20 Weight loss Results for this AUTOMATED PM EST Dysphagia, procedure are i n unspecified type the results Arthralgia, section. unspecified joint SEDIMENTATION RATE Routine 07/23/2016 12:20 Weight loss Results for this PM EST Dysphagia, procedure are i n unspecified type the results Arthralgia, section. unspecified joint CBC (WITH DIFF) Routine 07/23/2016 12:20 Weight loss PM EST Dysphagia, unspecified type Arthralgia, unspecified joint CRP, CARDIAC RISK (HS Routine 07/23/2016 12:20 Weight lo ss Results for this CRP) PM EST Dysphagia, procedure are i n unspecified type the results Arthralgia, section. unspecified joint PROTEIN Routine 07/23/2016 12:20 Weight loss Results for this ELECTROPHORESIS, SERUM PM EST Dysphagia, proce dure are in unspecified type the results Arthralgia, section. unspecified joint COMPREHENSIVE Routine 07/23/2016 12:20 Weight loss Results for this METABOLIC PANEL PM EST Dysphagia, procedure ar e in (NON-FASTING) unspecified type the results Arthralgia, section. unspecified joint documented in this encounter Results XR Lumbar Spine 2 Or 3 Views (Generic) (07/23/2016 12:55 PM EST) Anatomical Region Laterality Modality L-spine N/A Digital Radiography Specimen (Source) Anatomical Location Collection Method / Collectio n Time Received Time / Laterality Volume Impressions 07/23/2016 3:25 PM EST IMPRESSION: Further progression of degenerative nye ges most marked at L1-2, and L2-3. Degenerative narrowing at L5-S1. Signifi cant progression of grade 1 retrolisthesis of L3 at L4 now measuring approximately 10 mm. Narrative 07/23/2016 3:25 PM EST EXAMINATION: XR LUMBAR SPINE 2 OR 3 VIEWS (GENERIC) CLINICAL HISTORY: Significant degen scol iosis seen on CT upper lumbar 2013. Worsening pain. Please eval. TECHNIQUE: 2 views lumbar spine FINDINGS: Standing views of the lumbar spine donnell red to prior imaging 07/16/2012. There remains a levoconvex rotatory scol iotic curvature centered at L1-2. Significant intervertebral degenerative changes are present at L1-2 L2-3. There remains grade 1 anterolisthesis of L4 at L3-4 and significant posterior facet arthropathy. Associated degenerative anabelle nges and osteophyte formation are present. There is significant degenerative change s with narrowing at L5-S1 and subchondral sclerosis. Unchanged appearance to multiple surgica l clips in the left upper quadrant and right upper quadrant. Pelvic side sidewa ll clips are present. Procedure Note Angela Shahid MD - 07/23/2016Forma tting of this note might be different from the original. EXAMINATION: XR LUMBAR SPINE 2 OR 3 VIEW S (GENERIC) CLINICAL HISTORY: Significant degen scol iosis seen on CT upper lumbar 2014. Worsening pain. Please eval. TECHNIQUE: 2 views lumbar spine FINDINGS: Standing views of the lumbar spine donnell red to prior imaging 07/16/2012. There remains a levoconvex rotatory scol iotic curvature centered at L1-2. Significant intervertebral degenerative changes are present at L1-2 L2-3. There remains grade 1 anterolisthesis of L4 at L3-4 and significant posterior facet arthropathy. Associated degenerative anabelle nges and osteophyte formation are present. There is significant degenerative change s with narrowing at L5-S1 and subchondral sclerosis. Unchanged appearance to multiple surgica l clips in the left upper quadrant and right upper quadrant. Pelvic side sidewa ll clips are present. IMPRESSION IMPRESSION: Further progression of degenerative nye ges most marked at L1-2, and L2-3. Degenerative narrowing at L5-S1. Signifi cant progression of grade 1 retrolisthesis of L3 at L4 now measuring approximately 10 mm. Hesham Dwyer MD IMG DX ORDERABLES XR Ankle Min 3 views Left (Generic) (07/23/2016 12:55 PM EST) Anatomical Region Laterality Modality Ankle Left Digital Radiography Specimen (Source) Anatomical Location Collection Method / Collectio n Time Received Time / Laterality Volume Impressions 07/23/2016 4:48 PM EST Healing fracture Narrative 07/23/2016 4:48 PM EST EXAMINATION: XR ANKLE MIN 3 VIEWS LEFT (GENERIC) CLINICAL HISTORY: Follow up on fracture. Healing? TECHNIQUE: AP oblique and lateral views left ankle COMPARISON: None FINDINGS: Ankle mortise remain symmetric. Well-cor ticated avulsion fragments noted at the tip of the lateral malleolus. Cortical r emodeling and distal concavity of the distal femur and malleoli or lucency not ed. Focal persistent fracture line without displacement noted at the fibula r tip. Procedure Note Kaylie Ferris MD - 07/23/2016 EXAMINATION: XR ANKLE MIN 3 VIEWS LEFT ( GENERIC) CLINICAL HISTORY: Follow up on fracture. Healing? TECHNIQUE: AP oblique and lateral views left ankle COMPARISON: None FINDINGS: Ankle mortise remain symmetric. Well-cor ticated avulsion fragments noted at the tip of the lateral malleolus. Cortical r emodeling and distal concavity of the distal femur and malleoli or lucency not ed. Focal persistent fracture line without displacement noted at the fibula r tip. IMPRESSION Healing fracture Hesham Dwyer MD IMG DX ORDERABLES Differential, Automated (07/23/2016 12:20 PM EST) athologist Signature Neutrophils % 38.0 % [facility] Neutr Abs (ANC) 2.18 1.70 - [facility] 6.[address] [facility] x10(3)/[facility] LABORATORY Lymphocytes % 50.3 % [facility] Lymphocytes Abs 2.9 0.9 - 3.2 [facility] x10(3)/[facility] LABOR[facility] Monocytes % 6.0 % [facility] Monocyte Abs 0.3 0.3 - 0.9 [facility] x10(3)/[facility] Eosinophils % 4.6 % [facility] Eosinophils Abs 0.3 0.0 - 0.4 [facility] x10(3)/[facility] Basophils % 0.7 % [facility] Basophils Abs 0.0 0.0 - 0.1 [facility] x10(3)/[facility] LAB[facility] Immature Gran % 0.40 % [facility] Comment: Immature granulocytes(IG's)percentage an d absolute count will include metamyelocytes, myelocytes, and promyelo cytes. Blood smears from CBCs yielding IG's will be scanned manually for concor dance. If this scan disagrees with the automated IG or if promyelocytes are not ed, a manual differential will be performed. Linda Gran Abs 0.02 0.00 - 0.04 x10(3)/[facility] Specimen Anatomical Collection Method Collection Time Receive d Time (Source) Location / / Volume Laterality Blood specimen 07/23/2016 12:20 6 (specimen) PM EST 12:28 PM EST Resulting Agency Comment Spec In Lab Hesham Dwyer MD HEMATOLOGY ORDERABLES Performing Organization Address City/State/ZIP [place] [address] Hemogram (07/23/2016 12:20 PM EST) P athologist Signature WBC 5.7 4.0 - 9.5 [facility] x10(3)/[facility] [place] LABORATORY RBC 4.70 4.00 - [facility].[address] [facility] x10(6)/[facility] LABORATORY Hemoglobin 14.1 11.7 - [facility] 15.5 gm/dL [facility] LABORATORY Hematocrit 42.4 35.7 - [facility] 45.8 % [facility] LAB[facility]ORY MCV 90.2 82.6 - [facility] 94.4 [facility] LABORATORY MCH 30.0 27.1 - [facility] 32.0 pg [facility] LAB[facility]ATORY MCHC 33.3 31.7 - [facility] 35.0 gm/dL [facility] LABORATORY Platelets 189 145 - 357 [facility] x10(3)/[facility] [place] LABORATORY RDWSD 44.2 37.0 - [facility] 46.0 [facility] LABORATORY RDWCV 13.3 11.5 - [facility] 14.1 % [facility] LABORATORY MPV 8.9 7.6 - 12.9 [facility] LABORATORY nRBC % Auto 0.0 % [facility] LABORATORY nRBC Abs Auto 0.000 0.000 - [facility] 0.[address] [facility] x10(3)/[facility] LABORATORY Specimen Anatomical Collection Method Collection Time Receive d Time (Source) Location / / Volume Laterality Blood specimen 07/23/2016 12:20 6 (specimen) PM EST 12:28 PM EST Resulting Agency Comment Spec In Lab Hesham Dwyer MD HEMATOLOGY ORDERABLES Performing Organization Address City/State/ZIP [place] [address] High Sensitivity CRP (07/23/2016 12:20 PM EST) P athologist Signature CRP High Sens 0.4 mg/L [facility] LABORATORY Comment: Interpretations: 1) For accurate cardiac risk assessment, the average of 2 values >2 weeks apart should be obtained (ref 1&2). A value >1 0 mg/L indicates an inflammatory condition, concentrations >10 mg/L shoul d not be used for cardiac risk assessment. ?<1.0 mg/L: low risk ?1.0 - 3.0 mg/L: moderate risk ?>3.0 mg/L: high risk groups for fu ture cardiovascular events 2) The general reference range of appare ntly healthy individuals using this test is <5.0 mg/L (derived from the test package insert) References: 1. Sara MONTERROSO et. al. ??AHA/CDC Scientif ic Statement: Markers of Inflammation and Cardiovascular Disease. ??Circulatio n 2003; 107:499-511 ?2.[place]ker PM. ??Clinical applicatio ns of C-reactive protein for cardiovascular disease detection and pre vention. ??Circulation ?2002; 107:363-369 Specimen Anatomical Collection Method Collection Time Receive d Time (Source) Location / / Volume Laterality Blood specimen 07/23/2016 12:20 6 (specimen) PM EST 12:28 PM EST Resulting Agency Comment Spec In Lab Hesham Dwyer MD CHEMISTRY ORDERABLES Performing Organization Address City/[facility] Phon e Number [address] Sedimentation rate (07/23/2016 12:20 PM EST) P athologist Signature Sed Rate 9 0 - 20 [facility] mm/hr [facility] LABORATORY Specimen Anatomical Collection Method Collection Time Receive d Time (Source) Location / / Volume Laterality Blood specimen 07/23/2016 12:20 6 (specimen) PM EST 12:28 PM EST Resulting Agency Comment Spec In Lab Hesham Dwyer MD HEMATOLOGY ORDERABLES Performing Organization Address City/[facility] Phon e Number [address] Protein Electrophoresis, serum (07/23/2016 12:20 PM EST) Patholo gist Method Time Signature Total Prot 7.3 6.1 - 8.0 [facility] Elec gm/dL [facility] LABORATORY Albumin Elect 4.56 3.60 - [facility] 6.00 [facility] LABORATORY Alpha1-Globul 0.18 0.10 - [facility] in 0.30 [facility] LABORATORY Alpha2-Globul 0.82 0.40 - [facility] [place]ARCI[facility] in 0.90 [facility] LABORATORY Beta Globulin 0.68 0.50 - [facility] 1.00 [facility] LABORATORY Gamma 1.07 0.50 - [facility] Globulin 1.30 [facility] LABORATORY M1 Band None [facility] Detected [facility] LABORATORY Specimen Anatomical Collection Method Collection Time Receive d Time (Source) Location / / Volume Laterality Blood specimen 07/23/2016 12:20 6 (specimen) PM EST 12:28 PM EST Narrative This result has an attachment that is no t available. Resulting Agency Comment Spec In Lab Hesham Dwyer MD CHEMISTRY ORDERABLES Performing Organization Address City/State/ZIP Code Phon e Number [place] [phone] Comprehensive metabolic panel (non-fasting) (07/23/2016 12:20 PM EST) athologist Signature Glucose Lvl 100 65 - 199 [facility] mg/dL [facility] LABORATORY Comment: Diabetes: >=200 mg/dL plus symp toms BUN 9 8 - 18 mg/dL [facility] LABORATORY Creatinine 0.73 0.70 - 1.20 mg/dL [facility] LABORATORY Comment: Please note that the pediatric reference intervals supplied above were not validated at [facility]. Results from pediatri c patients should be interpreted in conjunction to the patient's age, height and muscle mass. Sodium 140 135 - 145 mmol/L [facility] LABORATORY Potassium 4.4 3.5 - 5.0 mmol/L [facility] LABORATORY Comment: Please note: ??Patients with WBC >100,00 0 may have falsely elevated Potassium levels. ??For accurate Potassium quantif ication in these patients send serum separator tube (gold top) for subsequent determinations. ??Contact the Clinical Chemistry Laboratory if there are any qu estions. Chloride 101 98 - 107 mmol/L [facility] LABORATORY CO2 26 22 - 31 mmol/L [facility] LABORATORY Anion Gap 13 5 - 15 mmol/L [facility] LABORATORY Calcium 9.5 8.5 - 10.5 mg/dL [facility] LABORATORY Total Protein 7.8 6.1 - 8.0 gm/dL [facility] LABORATORY Albumin 4.7 3.2 - 5.2 gm/dL [facility] LABORATORY AST 27 0 - 30 unit/L [facility] LABORATORY ALT 14 0 - 30 unit/L [facility] LAB[facility] Alk Phos 93 40 - 104 unit/L [facility] LABORATORY Total Bilirubin 0.5 0.2 - 1.3 mg/dL [facility] LABORATORY Bili, Direct 0.1 0.0 - 0.3 mg/dL [facility] LABORATORY Estimated GFR >60 >=60 [facility] LABORATORY Comment: This estimated GFR (eGFR) value was calc ulated using the MDRD equation which has been validated on patients between t he ages of 18 and 70. The MDRD should not be used to assess kidney function in patients < 18 years of age or in patients with extremes of body mass, or in patients with acute kidney failure. This value should be multiplied by 1.2 f or patients. For further information please copy and past e the following links into your internet browser. http://EcoVadis/DHnkdep http://EcoVadis/DHMCnkf Specimen Anatomical Collection Method Collection Time Receive d Time (Source) Location / / Volume Laterality Blood specimen 07/23/2016 12:20 6 (specimen) PM EST 12:28 PM EST Resulting Agency Comment Spec In Lab Hesham Dwyer MD CHEMISTRY ORDERABLES Performing Organization Address City/State/Z[place] [address] documented in this encounter Visit Diagnoses Diagnosis Weight loss Loss of weight Lumbar degenerative disc disease Degeneration of lumbar or lumbosacral in tervertebral disc Back pain, unspecified back location, un specified back pain laterality, unspecified chronicity Primary osteoarthritis involving multipl e joints Ankle fracture, left, sequela Dysphagia, unspecified type Arthralgia, unspecified joint Ankle fracture, left, sequela Lumbar degenerative disc disease Degeneration of lumbar or lumbosacral in tervertebral disc Back pain, unspecified back location, un specified back pain laterality, unspecified chronicity documented in this encounter Care Teams Zoology Professor Relationship Specialty Start Date End Date UpJulieta vasquez PA PCP - General 04/22/15 05/15/17 [address] [place] [address] documented as of this encounter
--- OUTSIDE RECORDS SUMMARY | 2022-03-12 15:45 | XMS_ITS | Encounter Summary ---
:1950 Author Organization [facility] [place] [address] Care Team Providers Name Role Phone Julieta Bonilla Primary Care Provider Reason for Visit Reason Onset Date Comments Medication Refill 04/09/2016 Encounter Details Date Type Department Care Team Description 04/09/2016 Refill Rheumatology at [facility] Geneva [facility] [place] [place] [address] Social History Tobacco Use Types Packs/Day [...] 05/28/2022 Office Visit Pulmonology Sonja Jenkins MD [facility] er Pulmonary Medici [place], [place] [address] (Wo rk) documented as of this encounter Visit Diagnoses Not on filedocumented in this encounter Care Teams Take Up Supervisor Relationship Specialty Start Date End Date Julieta Bonilla PA PCP - General 04/22/15 05/15/[address] [place] [address] documented as of this encounter
--- OUTSIDE RECORDS SUMMARY | 2022-03-12 15:45 | XMS_ITS | Encounter Summary ---
:1950 Author Organization [facility] Address [facility] [address] [place] [address] Care Team Providers Name Role Phone Wanda Castillo Primary Care Provider Encounter Details Date Type Department Care Team Description 07/18/2017 Anesthesia Event [place] [facility] [place] [address] [address] [phone] ANESTHESIOLOGY [place], [place] [address] Anesthesia Record Procedure Summary Procedure Name Responsible Anesthesia Start Anesthesia Stop Anesthesiologist Time Time COLONOSCOPY, DIAGNOSTIC (N/A Trunk) Events No events on file. No medications on file. Agents No agents on file. Blood No blood administrations on file. Lines, Drains, and Airways Type Details Placement Removal Incision 02/18/15; abdomen; vertical 02/18/15 0000 by Nora Alba, RN documented in this encounter Social History Tobacco Use Types Packs/Day Years Used Date Never Smoker Smokeless Tobacco: Never Used Alcohol Use Standard Drinks/Week Comments No 0 (1 standard drink = 0.6 oz pure alcoho l) Sex Assigned at Date Recorded Not on file documented as of this encounter OR Notes Anesthesia Preprocedure Evaluation - Stephanie Jara MD - 07/17/2017 3:50 PM EST Pre-Anesthesia Evaluation for: Ashley Da Silva a 66 y.o. female. Procedure(s): COLONOSCOPY, DIAGNOSTIC Patient Active Problem List Diagnosis ??? Low ferritin ??? Folate deficiency ??? Vitamin B deficiency ??? Fibromyalgia ??? Pain ??? Primary osteoarthritis involving multiple joints ??? Ankle fracture, left ??? Dysphagia ??? Arthralgia ??? Osteoarthritis of right hand ??? Primary osteoarthritis of hip ??? Weight loss ??? SBO (small bowel obstruction) ??? Abdominal pain, RUQ (right upper quadrant) ??? Osteoarthrosis, unspecified whether generalized or localized, pelvic region and thigh ??? Lumbosacral spondylosis without myelopathy ??? Right hip pain ??? Disorder of bursae and tendons in shoulder region ??? Primary osteoarthritis of left hand ??? Osteoarthrosis, unspecified whether generalized or localized, lower leg ??? Back pain ??? Lumbar degenerative disc disease ??? Degenerative arthritis of cervical spine Past Medical History: Diagnosis Date ??? Arthritis ??? B12 deficiency ??? Chronic back pain ??? Chronic hip pain Right Past Surgical History: Procedure Laterality Date ??? CHOLECYSTECTOMY 2009 ??? GASTRECTOMY 1993 ??? HYSTERECTOMY, TOTAL ABDOMINAL ??? PRO DRAIN ABD ABSCESS OPEN 02/18/2015 @DRAINAGE OF PERITONEAL ABSCESS OR PERITONITIS; OPEN performed by Sadie Duff MD at [facility] MAIN OR ??? PRO ENDOSCOPIC US EXAM, ESOPH N/A 12/23/2014 UPPER EUS- ENDOSCOPIC ULTRASOUND performed by Mehran Ogden MD at [facility] ENDOSCOPY ??? PRO EXPLORATORY OF ABDOMEN N/A 02/18/2015 @EXPLORATORY LAPAROTOMY, WITH/WITHOUT BIOPSY(S) performed by Sadie Duff MD at [facility] OR ??? PRO LYSIS ADNEXAL ADHESIONS N/A 02/18/2015 @LYSIS OF ADHESIONS performed by Sadie Duff MD at [facility] MAIN OR ??? PRO SMALL BOWEL ENDOSCOPY, PAST 2ND DUOD N/A 12/23/2014 ENDOSCOPY, ENTEROSCOPY, SMALL INTESTINE performed by Mehran Ogden MD at [facility] ENDOSCOPY ??? PRO UPPER GI ENDOSCOPY, BIOPSY N/A 11/17/2014 UPPER GASTROINTESTINAL ENDOSCOPY,WITH BIOPSY SINGLE OR MULTIPLE performed by Virginia Macdonald MD at [facility] ENDOSCOPY ??? PRO UPPER GI ENDOSCOPY, DIAGNOSTIC N/A 11/17/2014 EGD, UPPER GI ENDOSCOPY performed by Virginia Macdonald MD at [facility] ENDOSCOPY ??? TONSILLECTOMY Social History Substance Use Topics ??? Smoking status: Never Smoker ??? Smokeless tobacco: Never Used ??? Alcohol use No History Drug Use No Allergies Allergen Reactions ??? Sulfa (Sulfonamide Antibiotics) Shortness Of Breath and Rash ??? Valdecoxib Rash Diffuse rash Medications: MAR and/or home medications have been reviewed. Physical Exam: There were no vitals filed for this visit. There is no height or weight on file to calculate BMI. Airway Assessment: Mallampati: II TM distance: <3 FB Neck ROM: full Cardiovascular Assessment: Pulmonary Assessment: Dental Assessment: (+) lower dentures and upper dentures Misc Assessment: IV access: Peripheral line Anesthesia Plan: ASA 2 general and MAC, with a(n) intravenous induction 66 y.o. female who is scheduled for a screening colonoscopy Medical history is also significant for s/p gastric bypass osteoarthritis, lumbar DDD and chronic back. pain Anesthesia history: Prev MACs for endoscopies without complications. No prev airway records available in eDH NPO status: Appropriate Labs Lab Results Component Value Date WBC 5.7 07/23/2016 HGB 14.1 07/23/2016 HCT 42.4 07/23/2016 MCV 90.2 07/23/2016 PLATELET 189 07/23/2016 Lab Results Component Value Date NA 140 07/23/2016 K 4.4 07/23/2016 CL 101 07/23/2016 CO2 26 07/23/2016 BUN 9 07/23/2016 CREATININE 0.73 07/23/2016 GLUCOSE 100 07/23/2016 CALCIUM 9.5 07/23/2016 Lab Results Component Value Date ALT 14 07/23/2016 AST 27 07/23/2016 ALKPHOS 93 07/23/2016 BILITOT 0.5 07/23/2016 BILIDIR 0.1 07/23/2016 ALBUMIN 4.7 07/23/2016 PROT 7.8 07/23/2016 No results found for: HA1C Lab Results Component Value Date INR 1.0 02/18/2015 Lab Results Component Value Date PTT 26 02/18/2015 Anesthetic Plan Monitored anesthesia care (propofol) Backup plan [place] Standard ASA monitors. Region - Other Informed Consent: Plan discussed with ROOF SERVICE TECHNICIAN. PAT Staff Note documented in this encounter Plan of Treatment Upcoming Encounters Date Type Specialty Care Team Description 05/28/2022 Appointment Pulmonology 05/28/2022 Office Visit Pulmonology Sonja Jenkins MD [facility] Pulmonary Mediczion [place], [place] [address] (Wo rk) documented as of this encounter Visit Diagnoses Not on filedocumented in this encounter Care Teams Cream Separator Operator Relationship Specialty Start Date End Date Wanda Castillo PA PCP - General General Internal Medicine 05/16/17 1 [facility] [place] [address] documented as of this encounter
--- OUTSIDE RECORDS SUMMARY | 2022-03-12 15:45 | XMS_ITS | Encounter Summary ---
:1950 Author Organization [facility] Address [address] [place] [address] Care Team Providers Name Role Phone Julieta Bonilla Primary Care Provider Encounter Details Date Type Department Care Team Description 11/08/2015 Telephone [place]umatology [place] [facility] Bertha Mccartney [facility] [place] [address] Social History Tobacco Use Types Packs/Day Years Used Date Never Smoker Smokeless Tobacco: Never Used Alcohol Use Standard Drinks/Week Comments No 0 (1 standard drink = 0.6 oz pure alcoho l) Sex Assigned at Date Recorded Not on file documented as of this encounter Miscellaneous Notes Telephone Encounter - Bertha Mccartney - 11/08/2015 2:58 PM EDT Received fax information from [employer]) that no prior authorization is needed for Voltaren Gel 1% for members over 65 y/o. There was also a paid claim from 11/02/15 from the insurance. documented in this encounter Plan of Treatment Upcoming Encounters Date Type Specialty Care Team Description 05/28/2022 Appointment Pulmonology 05/28/2022 Office Visit Pulmonology Sonja Jenkins MD [facility] er Pulmonary Nataliya powers [place], [place] [address] (Wo rk) documented as of this encounter Visit Diagnoses Not on filedocumented in this encounter Care Teams Rn Icu Relationship Specialty Start Date End Date Julieta Bonilla PA PCP - General 04/22/15 05/15/17 [address] [place] [address] documented as of this encounter
--- OUTSIDE RECORDS SUMMARY | 2022-03-12 15:45 | XMS_ITS | Encounter Summary ---
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 Wanda Castillo PA [facility] [address] [place], [place] [id number] [place] [phone] Fax: Referral ID Status Reason Start Date Expiration Date Visits V isits Requested Authorized [id number] Closed Consult, 05/19/2017 05/19/2018 1 1 Test & Treat Consultation (Routine) - Closed Specialty Diagnoses / Procedures Referred By Contact Refer red To Contact Gastroenterology Diagnoses Screening for colon cancer Wanda Castillo PA [facility] [address] [phone] Referral ID Status Reason Start Date Expiration Date Visits V isits Requested Authorized [id number] Closed Test Only 05/19/2017 05/19/2018 1 1 Reason for Visit Reason Comments Establish Care Needs a PCP. Already had the flue shot. Annual Exam Encounter Details Date Type Department Care Team Description 05/19/2017 Office Visit Internal Medicine at Wanda Castillo Nee d for prophylactic vaccination with combined wdgvicsscd-ycvrdyq-muuyxezsv (DTP) vaccine; [facility] Need for pneumococcal vaccine; [facility] Claude rodriguez for screening mammogram for breast cancer; Onel Sanchez Lumbar degenerative disc disease; [place], [place] Internal Medicin e Back pain, unspecified back location, un specified back pain laterality, unspecified chronicity; [id number] [place] [address] MILLER (dyspnea on exertion); [phone] Screening for h ypertension; (Work) Annual physical exam; Screening for colon cancer; Chronic midline low back pain with bilateral sciatica; Chronic midline posterior neck pain Social History Tobacco Use Types Packs/Day Years Used Date Never Smoker Smokeless Tobacco: Never Used Alcohol Use Standard Drinks/Week Comments No 0 (1 standard drink = 0.6 oz pure alcoho l) Sex Assigned at Date Recorded Not on file documented as of this encounter Last Filed Vital Signs Vital Sign [place] Time Taken Comments Blood Pressure 132/53 05/19/2017 3:24 PM EDT Pulse 65 05/19/2017 3:24 PM EDT Temperature 36.6 ??C (97.9 ??F) 05/19/2017 3:24 PM EDT Respiratory Rate 18 05/19/2017 3:24 PM EDT Oxygen Saturation 100% 05/19/2017 3:24 PM EDT Inhaled Oxygen Concentration - - Weight 48.2 kg (106 lb 3.2 oz) 05/19/2017 3:24 PM EDT Height 149.3 cm (4' 10.78) 05/19/2017 3:24 PM EDT Body Mass Index 21.61 05/19/2017 3:24 PM EDT documented in this encounter Patient Instructions Patient InstructionsWanda Castillo PA - 05/19/2017 4:39 PM EDT Images from the original note were not included. [facility] Neck Strain or Sprain: Rehab Exercises Your Care Instructions Here are some examples of typical rehabilitation exercises for your condition. Start each exercise slowly. Ease off the exercise if you start to have pain. Your doctor or physical therapist will tell you when you can start these exercises and which ones will work best for you. How to do the exercises Neck rotation 1. Sit in a firm chair, or stand up straight. 2. Keeping your chin level, turn your head to the right, and hold for 15 to 30 seconds. 3. Turn your head to the left and hold for 15 to 30 seconds. 4. Repeat 2 to 4 times to each side. Neck stretches 1. Look straight ahead, and tip your right ear to your right shoulder. Do not let your left shoulderrise up as you tip your head to the right. 2. Hold for 15 to 30 seconds. 3. Tilt your head to the left. Do not let your right shoulder rise up as you tip your head to the left. 4. Hold for 15 to 30 seconds. 5. Repeat 2 to 4 times to each side. Forward neck flexion 1. Sit in a firm chair, or stand up straight. 2. Bend your head forward. 3. Hold for 15 to 30 seconds. 4. Repeat 2 to 4 times. Lateral (side) bend strengthening 1. With your right hand, place your first two fingers on your right scientologist. 2. Start to bend your head to the side while using gentle pressure from your fingers to keep your head from bending. 3. Hold for about 6 seconds. 4. Repeat 8 to 12 times. 5. Switch hands and repeat the same exercise on your left side. Forward bend strengthening 1. Place your first two fingers of either hand on your forehead. 2. Start to bend your head forward while using gentle pressure from your fingers to keep your head from bending. 3. Hold for about 6 seconds. 4. Repeat 8 to 12 times. Neutral position strengthening 1. Using one hand, place your fingertips on the back of your head at the top of your neck. 2. Start to bend your head backward while using gentle pressure from your fingers to keep your head from bending. 3. Hold for about 6 seconds. 4. Repeat 8 to 12 times. Chin tuck 1. Lie on the floor with a rolled-up towel under your neck. Your head should be touching the floor. 2. Slowly bring your chin toward your chest. 3. Hold for a count of 6, and then relax for up to 10 seconds. 4. Repeat 8 to 12 times. Follow-up care is a guajardo part of your treatment and safety. Be sure to make and go to all appointments, and call your doctor if you are having problems. It's also a good idea to know your test results and keep a list of the medicines you take. Where can you learn more? Visit our health information library at [email or web address]. You can also view health information on Infinity Box, your personal patient account. Log in or sign up today. Enter M679 in the search box to learn more about Neck Strain or Sprain: Rehab Exercises. Current as of: November 05, 2016 Content Version: 11.3 ?? [id number] Squla. Care instructions adapted under license by [facility]. If you have questions about a medical condition or this instruction, always ask your healthcare professional. [employer] disclaims any warranty or liability for your use of this information. [facility] Low Back Arthritis: Exercises Your Care Instructions Here are some examples of typical rehabilitation exercises for your condition. Start each exercise slowly. Ease off the exercise if you start to have pain. Your doctor or physical therapist will tell you when you can start these exercises and which ones will work best for you. When you are not being active, find a comfortable position for rest. Some people are comfortable on the floor or a medium-firm bed with a small pillow under their head and another under their knees. Some people prefer to lie on their side with a pillow between their knees. Don't stay in one position for too long. Take short walks (10 to 20 minutes) every 2 to 3 hours. Avoid slopes, hills, and stairs until you feel better. Walk only distances you can manage without pain, especially leg pain. How to do the exercises Pelvic tilt 5. Lie on your back with your knees bent. 6. Brace your stomach--tighten your muscles by pulling in and imagining your belly button moving toward your spine. 7. Press your lower back into the floor. You should feel your hips and pelvis rock back. 8. Hold for 6 seconds while breathing smoothly. 9. Relax and allow your pelvis and hips to rock forward. 10. Repeat 8 to 12 times. Back stretches 6. Get down on your hands and knees on the floor. 7. Relax your head and allow it to droop. Round your back up toward the ceiling until you feel a nice stretch in your upper, middle, and lower back. Hold this stretch for as long as it feels comfortable, or about 15 to 30 seconds. 8. Return to the starting position with a flat back while you are on your hands and knees. 9. Let your back sway by pressing your stomach toward the floor. Lift your buttocks toward the ceiling. 10. Hold this position for 15 to 30 seconds. 11. Repeat 2 to 4 times. Follow-up care is a guajardo part of your treatment and safety. Be sure to make and go to all appointments, and call your doctor if you are having problems. It's also a good idea to know your test results and keep a list of the medicines you take. Where can you learn more? Visit our health information library at [email or web address]. You can also view health information on Inf[employer] Box, your personal patient account. Log in or sign up today. Enter T094 in the search box to learn more about Low Back Arthritis: Exercises. Current as of: November 05, 2016 Content Version: 11.3 ?? [id number] Squla. Care instructions adapted under license by [facility]. If you have questions about a medical condition or this instruction, always ask your healthcare professional. [employer] disclaims any warranty or liability for your use of this information. documented in this encounter Progress Notes Wanda Castillo PA - 05/19/2017 3:40 PM EDT Subjective: Patient ID: Ashley Da Silva is a 66 y.o. female. ?? Establish care ?? Has chronic OA of hips, hands, shoulders, cervical and lumbar spines ?? Has taken tramadol for years (50 mg 4 a day), also takes Tylenol and uses Voltaren gel with a little relief ?? Has had injections 6-7 years ago in lumbar spine, which helped for a little while ?? Noticing increased pain and some intermittent numbness/tingling in both legs and knees will oftengive out ?? Tried Celebrex but didn't have much effect ?? She has had the flu vaccine ?? She has been seen in the spine center in 02/2016 and was advised on Reji PT and didn't have it done because she had done PT before and felt it made it worse ?? Pain is midline lumbar and cervical, and worsened over the past several months since her last appointment, which was in rheumatology in 07/2016 ?? 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 Has had a cough off and on for a couple of months - not every day Review of Systems Constitutional: Negative for activity change, appetite change, chills, diaphoresis, fatigue, fever and unexpected weight change. HENT: Negative for congestion, ear pain, postnasal drip, rhinorrhea, sinus pressure, sneezing, sore throat and trouble swallowing. Respiratory: Positive for chest tightness and shortness of breath. Negative for cough and wheezing. Cardiovascular: Negative for chest pain, palpitations and leg swelling. Gastrointestinal: Negative for abdominal distention, abdominal pain, anal bleeding, blood in stool, constipation, diarrhea, nausea, rectal pain and vomiting. Genitourinary: Negative for difficulty urinating, dysuria, flank pain, frequency, hematuria and urgency. Musculoskeletal: Positive for arthralgias (OA of hands, hips), back pain (chronic low back pain - degenerative) and neck pain (chronic - cervical spine arthritis). Negative for gait problem, joint swelling, myalgias and neck stiffness. Neurological: Negative for dizziness, syncope, weakness, light-headedness, numbness and headaches. Hematological: Negative for adenopathy. Psychiatric/Behavioral: Positive for dysphoric mood and sleep disturbance. Negative for decreased concentration, self-injury and suicidal ideas. The patient is nervous/anxious. Objective: Most Recent Vitals: 05/19/17 1524 BP: 132/53 Pulse: 65 Resp: 18 Temp: 36.6 ??C (97.9 ??F) SpO2: 100% PainSc: 8 BP Readings from Last 3 Encounters: 05/19/17 132/53 07/23/16 123/64 01/23/16 103/49 Wt Readings from Last 3 Encounters: 05/19/17 48.2 kg (106 lb 3.2 oz) 07/23/16 52.6 kg (116 lb) 01/23/16 56.2 kg (124 lb) No flowsheet data found. Physical Exam Constitutional: She is oriented to person, place, and time. She appears well- developed and well-nourished. No distress. HENT: Head: Normocephalic and atraumatic. Right Ear: External ear normal. Left Ear: External ear normal. Nose: Nose normal. Mouth/Throat: Oropharynx is clear and moist. Eyes: Conjunctivae and EOM are normal. Pupils are equal, round, and reactive to light. Neck: Normal range of motion. Neck supple. Cardiovascular: Normal rate, regular rhythm, normal heart sounds and intact distal pulses. Pulmonary/Chest: Effort normal and breath sounds normal. No respiratory distress. She has no wheezes. She has no rales. Abdominal: Soft. Bowel sounds are normal. She exhibits no distension and no mass. There is no tenderness. There is no rebound and no guarding. Musculoskeletal: She exhibits tenderness. She exhibits no edema or deformity. Cervical back: She exhibits decreased range of motion (painful flexion/extension) and tenderness (midline mild tenderness). She exhibits no bony tenderness and no swelling. Thoracic back: Normal. Lumbar back: She exhibits decreased range of motion (painful flexion, extension) and tenderness ( lumbar midline). She exhibits no bony tenderness, no swelling and no deformity. Lymphadenopathy: She has no cervical adenopathy. Neurological: She is alert and oriented to person, place, and time. She has normal reflexes. Coordination normal. Skin: Skin is warm and dry. She is not diaphoretic. Psychiatric: She has a normal mood and affect. 07/23/16 EXAMINATION: XR LUMBAR SPINE 2 OR 3 VIEWS (GENERIC) ?? CLINICAL HISTORY: Significant degen scoliosis seen on CT upper lumbar 2013. Worsening pain. Please eval. ?? TECHNIQUE: 2 views lumbar spine ?? FINDINGS: Standing views of the lumbar spine [...] quadrant. Pelvic side sidewall clips are present. IMPRESSION IMPRESSION: Further progression of degenerative changes most marked at L1-2, and L2-3. Degenerative narrowing at L5-S1. Significant progression of grade 1 retrolisthesis of L3 at L4 now measuring approximately 10 mm. ?? Assessment and Plan: 66 year old female establishing care, with chronic OA of hips, hands, and cervical spine, and lumbardegenerative disc disease and spondylosis. She has had chronic worsening low back pain for past 20 years, worse in past year, due to lumbar degenerative disc disease and spondylosis, with x-ray done in07/2016 and MRI ordered, with intermittent numbness down to the knees with weakness of the knees noticed in past couple of weeks. She has had gradually increasing SOB/MILLER with intermittent cough for past few months; had CXR in 12/2015 that showed mild pulmonary fibrosis. 1. Need for prophylactic vaccination with combined srulrdeoss-ikgkyns-pvbobjvvc (DTP) vaccine - Tdap vaccine greater than or equal to 7yo IM 2. Need for pneumococcal vaccine - PNEUMOCOCCAL CONJUGATE VACCINE 13-VALENT 3. Encounter for screening mammogram for breast cancer - Mammo Screen CAD and Ruben Bilat (Generic); Future 4. Lumbar degenerative disc disease - lidocaine (LIDODERM) 5 % Adhesive Patch, Medicated; Apply 1 patch onto the skin daily. (leave on for 12 hours and remove for 12 hours) Dispense: 30 patch; Refill: 11 5. Back pain, unspecified back location, unspecified back pain laterality, unspecified chronicity - lidocaine (LIDODERM) 5 % Adhesive Patch, Medicated; Apply 1 patch onto the skin daily. (leave on for 12 hours and remove for 12 hours) Dispense: 30 patch; Refill: 11 6. MILLER (dyspnea on exertion) - XR Chest PA & Lateral (Generic); Future - albuterol 90 mcg/actuation HFA Aerosol Inhaler; Inhale 2 puffs into the lungs every 4 hours as needed for Wheezing. Use with spacer Dispense: 1 Inhaler; Refill: 1 - Pulmonary Function Testing; Future 7. Screening for hypertension - Lipid Panel; Future 8. Annual physical exam 9. Screening for colon cancer - Referral to Gastroenterology 10. Chronic midline low back pain with bilateral sciatica - MRI Lumbar Spine wwo Contrast; Future - Referral to Pain Clinic 11. Chronic midline posterior neck pain - Referral to Pain Clinic - XR Cervical Spine Any 4 Or 5 Views; Future - An after visit summary was given to the patient. - Ashley was given necessary information on her condition and instructed to return if symptoms continue or worsen. documented in this encounter Plan of Treatment Upcoming Encounters Date Type Specialty Care Team Description 05/28/2022 Appointment Pulmonology 05/28/2022 Office Visit Pulmonology Sonja Jenkins MD [facility] Pulmonary Medici gio [place], [place] [address] (Wo rk) Scheduled Referrals Name Type Priority Associated Order Schedule Diagnoses Referral to Outpatient Routine Screening for Ordered: Gastroenterology Referral colon cancer 05/19/2017 Referral to Pain Clinic Outpatient Routine Chronic midline O rdered: Referral low back pain with 7 bilateral sciati ca Chronic midline posterior neck pain documented as of this encounter Visit Diagnoses Diagnosis Need for prophylactic vaccination with c ombined xcujqdhxhm-nhmrbdn-sberpfvuj (DTP) vaccine Need for pneumococcal vaccine Need for prophylactic vaccination agains t streptococcus pneumoniae (pneumococcus) Encounter for screening mammogram for br east cancer Lumbar degenerative disc disease Degeneration of lumbar or lumbosacral in tervertebral disc Back pain, unspecified back location, un specified back pain laterality, unspecified chronicity MILLER (dyspnea on exertion) Other dyspnea and respiratory abnormalit y Screening for hypertension Annual physical exam Routine general medical examination at a health care facility Screening for colon cancer Special screening for malignant neoplasm s, colon Chronic midline low back pain with bilat eral sciatica Chronic midline posterior neck pain Cervicalgia documented in this encounter Care Teams Package Delivery Room Service Runner Relationship Specialty Start Date End Date Wanda Castillo PA PCP - General General Internal Medicine 05/16/17 1 [facility] [place] [address] documented as of this encounter
--- OUTSIDE RECORDS SUMMARY | 2022-03-12 15:45 | XMS_ITS | Encounter Summary ---
:1950 Author Organization [facility] Address [address] [place] [address] Care Team Providers Name Role Phone Wanda Castillo Primary Care Provider Encounter Details Date Type Department Care Team Description 05/20/2017 Telephone Internal Medicine at [facility] Desiree Livingston [facility] [place] [phone] Social History Tobacco Use Types Packs/Day [...] 05/28/2022 Office Visit Pulmonology Sonja Jenkins MD [facility] er Pulmonary Medici ne [place], [place] [address] (Wo rk) documented as of this encounter Visit Diagnoses Not on filedocumented in this encounter Care Teams Mesh Worker Relationship Specialty Start Date End Date Wanda Castillo PA PCP - General General Internal Medicine 05/16/[address] [place] [address] [place] [address] documented as of this encounter
--- OUTSIDE RECORDS SUMMARY | 2022-03-12 15:45 | XMS_ITS | Encounter Summary ---
:1950 Author Organization [facility] [place] [address] Care Team Providers Name Role Phone Julieta Bonilla Primary Care Provider Reason for Visit Reason Onset Date Comments Medication Refill 12/13/2016 Encounter Details Date Type Department Care Team Description 12/13/2016 Refill Rheumatology at [facility] Geneva Hernandez [facility] [phone] Social History Tobacco Use Types Packs/Day [...] MD [facility] er Pulmonary Medici [place], [place] [address] (Wo rk) documented as of this encounter Visit Diagnoses Not on filedocumented in this encounter 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
--- OUTSIDE RECORDS SUMMARY | 2022-03-12 15:45 | XMS_ITS | Encounter Summary ---
:1950 Author Organization [facility] [place] [address] Care Team Providers Name Role Phone Wanda Castillo Primary Care Provider Reason for Visit Reason Onset Date Comments Pre Procedure Call 06/16/2017 Encounter Details Date Type Department Care Team Description 06/16/2017 Telephone Pain Management at [facility] Cruz L[facility] Pre Procedure Call [facility] [place] [phone] Social History Tobacco Use Types Packs/Day Years Used Date Never Smoker Smokeless Tobacco: Never Used Alcohol Use Standard Drinks/Week Comments No 0 (1 standard drink = 0.6 oz pure alcoho l) Sex Assigned at Date Recorded Not on file documented as of this encounter Miscellaneous Notes Telephone Encounter - Huma Bonner LNA - 06/16/2017 10:24 AM EDT Ashley Da Silva :1950 Message left: I left a message on answering machine Ms. Da Silva at 10:24 AM regarding her upcoming lumbar epiduralsteroid injection with Dr. Phyllis Juarez MD. Message included the followin. Patient instructed to arrive at 1:30PM on 06/18/2017 with their car pick up driver. 2. Following instructions left in the message: - Bring Updated list of medications including dosage and reason for taking. - Call the Pain Clinic Nurse at for: ~Procedure instructions. ~If you are taking antibiotics. ~If you have any signs or symptoms of infection, cold or flu. ~If you have any skin breakdown (rashes, cysts, or abscess.) ~If you are taking anticoagulants / blood thinners (Plavix, Pletal, Lovenox, Coumadin, etc). ~If you had any steroid injections anywhere in your body within the last two weeks? Pain and Anti-anxiety Medications: 1. Nerve Block Procedure Patients: Patient was instructed NOT to take their pain medications on the day of the procedure and anti-anxiety medications are part of their daily medication regiment; they can and should continue taking that medication. 2. All Other Procedure Patients: The patient was instructed that if they take daily pain or anti-anxiety medications, they can and should continue taking on the day of the procedure. MIRIAM Crum documented in this encounter Plan of Treatment Upcoming Encounters Date Type Specialty Care Team Description 05/28/2022 Appointment Pulmonology 05/28/2022 Office Visit Pulmonology Sonja Jenkins MD [facility] Pulmonary Medici [place], [place] [address] (Wo rk) documented as of this encounter Visit Diagnoses Not on filedocumented in this encounter Care Teams Baffle Installer Relationship Specialty Start Date End Date Wanda Castillo PA PCP - General General Internal Medicine 05/16/[address] [place] [address] [place] [address] documented as of this encounter
--- OUTSIDE RECORDS SUMMARY | 2022-03-12 15:45 | XMS_ITS | Encounter Summary ---
:1950 Author Organization [facility] [place] [address] Care Team Providers Name Role Phone Julieta Bonilla Primary Care Provider Encounter Details Date Type Department Care Team Description 07/23/2016 [place] En[place] [facility] [place] Ankle fracture, 1 [facility] MD willi Camejo, [place] [address] RHEUMATOLOGY DEPT. [phone] [place], [place] [address] (Wo rk) Social History Tobacco Use Types Packs/Day Years Used Date Never Smoker Smokeless Tobacco: Never Used Alcohol Use Standard Drinks/Week Comments No 0 (1 standard drink = 0.6 oz pure alcoho l) Sex Assigned at Date Recorded Not on file documented as of this encounter Medications at Time of Discharge Medication Sig Dispensed Refills Start Date End Date oxyCODONE (ROXICODONE) 5 Take 1-2 tablets by 20 tablet 0 mg Tablet mouth every 4 hours as needed for Pain. No driving, no alcohol desonide (DESOWEN) 0.05 % Prn 0 05/04/2014 Lotion cyanocobalamin, vitamin every 30 days. 0 06/20/20 14 B-12, 1,000 mcg/mL Solution celecoxib (CELEBREX) 100 Take 1 capsule by 90 capsule 3 01/201609/05/2016 mg CapsuleIndications: mouth nightly. Lumbar degenerative disc disease, Back pain, unspecified back location, unspecified back pain laterality, unspecified chronicity, Primary osteoarthritis involving multiple joints, Arthralgia, unspecified joint lidocaine (LIDODERM) 5 % Apply 1 patch onto 30 patch 11 01/201605/19/2017 Adhesive Patch, the skin daily. MedicatedIndications: (leave on for 12 Lumbar degenerative disc hours and remove disease, Back pain, for 12 hours) unspecified back location, unspecified back pain laterality, unspecified chronicity traMADol (ULTRAM) 50 mg Take 1-2 tablets by 180 tablet 2 08/30/2016 Tablet mouth every 8 hours if needed. omeprazole (PRILOSEC) 20 Take 1 capsule by 30 capsule 6 12/1701/06/2017 mg Capsule, Delayed mouth daily. Release(E.C.) diclofenac (VOLTAREN) 1 % Apply 2 g topically 1 Tube 11 0 09/14/2015 09/20/2016 GelIndications: 4 times daily. Lumbosacral spondylosis without myelopathy, Disorder of bursae and tendons in shoulder region, Primary osteoarthritis of hip, unspecified laterality acetaminophen (TYLENOL) Take 500-1,000 mg 0 10/27/2017 500 mg Tablet by mouth every 6 hours as needed for Pain. amitriptyline (ELAVIL) 50 Take 1 tablet by 30 tablet 2 04/1810/27/2017 mg Tablet mouth nightly. multivitamin (DAILY 0 04/03/200606/16 MULTIPLE) tablet documented as of this encounter Plan of Treatment Upcoming Encounters Date Type Specialty Care Team Description 05/28/2022 Appointment Pulmonology 05/28/2022 Office Visit Pulmonology Sonja Jenkins MD [facility] er Pulmonary [place], [place] [address] (Wo rk) documented as of this encounter Procedures Procedure Name Priority Date/Time Associated Diagnosis Comme nts XR ANKLE MIN 3 Routine 07/23/2016 12:55 PM Ankle fracture, Res ults for this VIEWS LEFT EST left, sequela procedure are in the results section. documented in this encounter Results XR Ankle Min 3 views Left (Generic) [...] fracture Hesham Dwyer MD IMG DX ORDERABLES documented in this encounter Visit Diagnoses Diagnosis Ankle fracture, left, sequela documented in this encounter Care Teams Utility Worker [place] Relationship Specialty Start Date End Date Julieta Bonilla PA PCP - General 04/22/15 05/15/17 [address] [place] [address] documented as of this encounter
--- OUTSIDE RECORDS SUMMARY | 2022-03-12 15:45 | XMS_ITS | Encounter Summary ---
:1950 Author Organization [facility] [place] [address] Care Team Providers Name Role Phone Julieta Bonilla Primary Care Provider Encounter Details Date Type Department Care Team Description 07/29/2016 Telephone [place]ology [place] [facility] [place] [facility] [place] [address] Social History Tobacco Use Types Packs/Day Years Used Date Never Smoker Smokeless Tobacco: Never Used Alcohol Use Standard Drinks/Week Comments No 0 (1 standard drink = 0.6 oz pure alcoho l) Sex Assigned at Date Recorded Not on file documented as of this encounter Miscellaneous Notes Telephone Encounter - Geneva Hernandez LPN - 07/29/2016 4:24 PM EST ----- Message from Hesham Dwyer MD sent at 07/27/2016 2:39 PM EST ----- Please call. Labs look absolutely normal. Spine x-rays show some worsening of [id number] arthritis. No surprises. Ankle fracture healing, but not completely. Who took acre of her fracture up there? She can probably come out of the walking cast, but I' d like to see what her old films looked like. Thanks, CB ++++++ I have called to let the pt know the above message. She is going to see her new PCP tomorrow and shewill discuss with her about getting her old films. documented in this encounter Plan of Treatment Upcoming Encounters Date Type Specialty Care Team Description 05/28/2022 Appointment Pulmonology 05/28/2022 Office Visit Pulmonology Son[facility] [place], [place] [address] (Wo rk) documented as of this encounter Visit Diagnoses Not on filedocumented in this encounter Care Teams Cat Driver Relationship Specialty Start Date End Date Julieta Bonilla PA PCP - General 04/22/15 05/15/[address] [place] [address] documented as of this encounter
--- OUTSIDE RECORDS SUMMARY | 2022-03-12 15:45 | XMS_ITS | Encounter Summary ---
:1950 Author Organization [facility] Address [address] [place] [address] Care Team Providers Name Role Phone Wanda Castillo Primary Care Provider Reason for Visit Reason Onset Date Comments Medication Refill 09/24/2017 Encounter Details Date Type Department Care Team Description 09/24/2017 Refill Rheumatology at [facility] [place] Geneva Hernandez, Lumbosacral spondylosis with out myelopathy; [facility] Kayla khan LPN Disorder of bursae and tendo ns in shoulder region; [place] [address] Primary osteoarthritis of hi p, unspecified laterality [phone] Social History Tobacco Use Types Packs/Day Years [...] Pulmonology Sonja Jenkins MD [facility] er Pulmonary Mediczion ne [place], [place] [address] (Wo rk) documented as of this encounter Visit Diagnoses Diagnosis Lumbosacral spondylosis without myelopat hy Disorder of bursae and tendons in should er region Disorders of bursae and tendons in shoul jhon region, unspecified Primary osteoarthritis of hip, unspecifi ed laterality documented in this encounter Care Teams Potato Picker Relationship Specialty Start Date End Date Wanda Castillo PA PCP - General General Internal Medicine 05/16/17 1 [facility] [place] [address] documented as of this encounter
--- OUTSIDE RECORDS SUMMARY | 2022-03-12 15:45 | XMS_ITS | Encounter Summary ---
:1950 Author Organization [place] [place] [address] Care Team Providers Name Role Phone Julieta Bonilla Primary Care Provider Reason for Visit Reason Onset Date Comments Medication Refill 03/04/2017 Encounter Details Date Type Department Care Team Description 03/04/2017 [place] [facility] [place] [facility] [place] [address] Social History Tobacco Use Types Packs/Day [...] 05/28/2022 Office Visit Pulmonology Sonja Jenkins MD [facility] er Pulmonary Medici [place], [place] [address] (Wo rk) documented as of this encounter Visit Diagnoses Not on filedocumented in this encounter Care Teams Telephone Sex Worker Relationship Specialty Start Date End Date Julieta Bonilla PA PCP - General 04/22/15 05/15/[address] [place] [address] documented as of this encounter
--- OUTSIDE RECORDS SUMMARY | 2022-03-12 15:45 | XMS_ITS | Encounter Summary ---
:1950 Author Organization [facility] Address [facility] [place] [address] Care Team Providers Name Role Phone Julieta Bonilla Primary Care Provider Encounter Details Date Type Department Care Team Description 09/14/2015 Office Visit Rheumatology [place] [facility] Hesham Dwyer Lumbosacral spondylosis with out myelopathy; [facility] MD Nell Disorder of bursae and tendons in should er region; Drive [facility] Primary osteoarthritis of hi p, unspecified laterality; [place], [place] Weight loss; [phone] [address] MILLER (dyspnea on exertion); [phone] [place], [place] [address] Edema of lower extremity, unspecified la terality [phone] (Wo rk) Social History Tobacco Use Types Packs/Day Years Used Date Never Smoker Smokeless Tobacco: Never Used Alcohol Use Standard Drinks/Week Comments No 0 (1 standard drink = 0.6 oz pure alcoho l) Sex Assigned at Date Recorded Not on file documented as of this encounter Last Filed Vital Signs Vital Sign Reading Time Taken Comments Blood Pressure 119/61 09/14/2015 1:36 PM EST Pulse 66 09/14/2015 1:36 PM EST Temperature 36.6 ??C (97.8 ??F) 09/14/2015 1:36 PM EST Respiratory Rate - - Oxygen Saturation 99% 09/14/2015 1:36 PM EST Inhaled Oxygen Concentration - - Weight 54 kg (119 lb) 09/14/2015 1:36 PM EST Height 154.9 cm (5' 1) 09/14/2015 1:36 PM EST Body Mass Index 22.48 09/14/2015 1:36 PM EST documented in this encounter Patient Instructions Patient InstructionsHesham Dwyer MD - 09/14/2015 3:01 PM EST Get labs and chest x-ray. Call for results. Further studies pending those. Use Voltaren gel on painful areas. Follow up in 6 months. documented in this encounter Progress Notes Hesham Dwyer MD - 09/17/2015 12:36 PM EST Rheumatology Clinic: Dr. Dwyer 09/14/2015 [id number] Madie Da Silva is seen in follow-up of her widespread osteoarthritis. She manages that predominantlywith tramadol at this point. She's been intolerant of non-steroidals with UGI issues, but she also had an allergic reaction to valdecoxib in the past. In any case, the last time I saw her, which was almost exactly one year ago, we were very concerned about some right upper quadrant pain that corresponded to the liver. We had her undergo an urgent CT scan of the abdomen. That showed dilated biliary tract ducts. There was no mass, et cetera. We sent her to GI who performed a thorough evaluation including MRCP, EGT, et cetera. There was concern about a common bile duct stricture. Going through the medical record today, it seems like she was lost to followup. The next event though is a major one, as she presented to the [place] emergency room with dramaticleft upper quadrant pain and was shipped up here where she eventually underwent emergency surgery for complete small bowel obstruction related to a volvulus. That apparently was thought to be secondaryto her previous gastric bypass pass procedure, which was a Carlitos-en-Y done many years ago. According to her, after the surgery the right upper quadrant discomfort completely resolved as well. She did make one trip back to the emergency room in April with recurrent left upper quadrant pain, but she had imaging done and nothing was found. That resolved quickly on its own. Of the GI workup, the only thing recommended that she did not have done last year was a barium swallow. We noted today that she's lost even more weight. Since her visit one year ago, she is down an additional 30 pounds to about 119. She had already lost weight prior to that visit a year ago, so this is asubstantial total weight loss altogether. One can tell her appetite is off significantly, although she ascribes it to be being too busy to eat. 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 Viviana has difficulty swallowing. On her EGD, she had a Schatzki ring, but it didn't sound like thereis anything there that should be dilated. She does sometimes choke on food. She has had some dyspnealately and has noted some wheezing with exertion. She does not have a previous diagnosis of asthma and she is nonsmoker. In terms of the areas that are bothering her from a musculoskeletal point of view, these are her oldproblem areas, including the right shoulder, both thumbs, the low back, and the right hip. She tellsme she's been told already that she has enough degenerative disease in that right hip to warrant a replacement, but she hasn't followed through on that yet. She brought up again the possibility of our prescribing Percocet but we declined. We stopped doing that when she told one of her providers that she was giving her daughter some of her Percocets. In that regard her daughter recovered completely from her valvular heart surgery complicated by MRSA and is now actually . Unfortunately, she was initially with twins, but lost one of the babies at about 5 weeks in. She is due in a few months. Patient Active Problem List Diagnosis Code ??? Disorder of bursae and tendons in shoulder region M71.9, M67.919 ??? Osteoarthrosis, unspecified whether generalized or localized, hand M19.049 ??? Osteoarth NOS-l/leg M17.9 ??? Back pain M54.9 ??? Lumbar [...] of hip M16.10 ??? Weight loss R63.4 Medications 09/14/15 1338 Medication Sig Taking? traMADol (ULTRAM) 50 mg Tablet take 1 to 2 tablets by mouth every 8 hours if needed for pain Yes acetaminophen (TYLENOL) 500 mg Tablet Take 500-1,000 mg by mouth every 6 hours as needed for Pain. Yes omeprazole (PRILOSEC) 20 mg Capsule, Delayed Release(E.C.) Take 1 capsule by mouth daily. Yes desonide (DESOWEN) 0.05 % Lotion Prn Yes cyanocobalamin, vitamin B-12, 1,000 mcg/mL Solution every 30 days. Yes amitriptyline (ELAVIL) 50 mg Tablet Take 1 tablet by mouth nightly. Yes multivitamin (DAILY MULTIPLE) tablet Yes diclofenac (VOLTAREN) 1 % Gel Apply 2 g topically 4 times daily. oxyCODONE (ROXICODONE) 5 mg Tablet Take 1-2 tablets by mouth every 4 hours as needed for Pain. No driving, no alcohol ondansetron (ZOFRAN ODT) 4 mg Tablet, Rapid Dissolve Take 1 tablet by mouth every 8 hours as needed for Nausea. Physical Exam: She looks well although she has lost a considerable amount of weight. Blood pressure 119/61, pulse 66, temperature 36.6 ??C (97.8 ??F), temperature source Oral, height 154.9 cm (5' 1), weight 53.978 kg (119 lb), SpO2 99 %. Skin: Clear. HEENT: Unremarkable. Lungs: She has some scattered crackles as we've heard on previous exams, but now she has some scattered expiratory wheezes as well. Heart: Regular rhythm and rate without murmur, gallop, or rub. Abdomen: Benign. No masses, tenderness, or organomegaly. Extremities: She now has significant edema of both lower legs right worse than left. Musculoskeletal: She has no synovitis in her hands, but does have very symptomatic basilar thumb OA bilaterally. She also has some first MCP involvement as well. Her wrists, elbows, and left shoulder are okay. She has impingement symptoms of the right shoulder with some loss of range of motion there. She has a lot of pain on range of motion of the right hip, some of that is in the groin, some of it is in the buttock and posterior pelvis. The left hip moves reasonably well without pain. The rest of her lower extremity exam is unchanged other than the new edema. Neuro: Grossly intact. Assessment: We had a long discussion about her situation. Again, as last time, I'm concerned that there is something else going on here. This is an impressive weight loss and although she had an acute abdomen back in February, her weight loss predated that and continues now 6 months out. She does have some ongoing difficulty swallowing. I think it's worthwhile completing her upper GI workup with a bariumswallow. In addition, she's now having some dyspnea on exertion, wheezing, and new lower extremity edema. We'll get a chest x-ray today to start. In terms of her musculoskeletal pain, this is about status quo and involves osteoarthritis of the hands, right greater than left hip, and spine, as well as right shoulder impingement. She's not a good candidate for oral NSAIDs and so we put her on topical Voltaren gel, which should be relatively safe for her. We'll continue to prescribe her tramadol, but won't prescribe Percocet. She understood the plan. I'll see her back in a few months, but we'll talk after she has her barium swallow here. I also asked her to call tomorrow to go over the results of today's tests. She understood the plan. We gave the patient the following specific instructions: Patient Instructions Get labs and chest x-ray. Call for results. Further studies pending those. Use Voltaren gel on painful areas. Follow up in 6 months. Over 30 minutes of the 40 minute follow-up were spent discussing these problems and their treatment options in [id number] counseling. Orders Placed This Encounter Procedures ? ? XR Chest Routine PA & Lateral ??? D-Dimer, Quantitative ??? CBC (with Diff) ??? Comprehensive metabolic panel (non-fasting) ??? Sedimentation rate ??? High Sensitivity CRP ??? Hemogram ??? Differential, Automated Visit Diagnoses: 1. Lumbosacral spondylosis without myelopathy diclofenac (VOLTAREN) 1 % Gel 2. Disorder of bursae and tendons in shoulder region diclofenac (VOLTAREN) 1 % Gel 3. Primary osteoarthritis of hip, unspecified laterality diclofenac (VOLTAREN) 1 % Gel 4. Weight loss CBC (with Diff) Comprehensive metabolic panel (non-fasting) Sedimentation rate High Sensitivity CRP CBC (with Diff) Comprehensive metabolic panel (non-fasting) High Sensitivity CRP Sedimentation rate Hemogram Differential, Automated 5. MILLER (dyspnea on exertion) XR Chest Routine PA & Lateral D-Dimer, Quantitative D-Dimer, Quantitative 6. Edema of lower extremity, unspecified laterality D-Dimer, Quantitative D-Dimer, Quantitative Results for MADIE DA SILVA ( ) Ref. Range 09/14/2015 15:21 WBC Latest Ref Range: 4.0-10.0 x10(3)/mcL 6.2 RBC Latest Ref Range: 3.93-5.22 x10(6)/mcL 4.42 Hemoglobin Latest Ref Range: 11.2-15.7 gm/dL 12.1 Hematocrit Latest Ref Range: 34.0-45.0 % 38.1 MCV Latest Ref Range: 79.0-94.0 fL 86.2 MCH Latest Ref Range: 26.6-32.2 pg 27.4 MCHC Latest Ref Range: 32.0-36.5 gm/dL 31.8 (L) RDWSD Latest Ref Range: 35.0-46.0 fL 43.5 RDWCV Latest Ref Range: 10.9-14.4 % 13.7 Platelets Latest Ref Range: 145-370 x10(3)/mcL 242 MPV Latest Ref Range: 9.0-12.0 fL 9.4 Neutr Abs (ANC) Latest Ref Range: 1.50-6.30 x10(3)/mcL 2.46 Neutrophils % Latest Units: % 39.3 Immature Gran % Latest Units: % 0.20 Lymphocytes % Latest Units: % 50.5 Monocytes % Latest Units: % 6.9 Eosinophils % Latest Units: % 2.6 Basophils % Latest Units: % 0.5 Linda Gran Abs Latest Ref Range: 0.00-0.05 x10(3)/mcL 0.01 Lymphocytes Abs Latest Ref Range: 1.0-3.6 x10(3)/mcL 3.2 Monocyte Abs Latest Ref Range: 0.2-1.0 x10(3)/mcL 0.4 Eosinophils Abs Latest Ref Range: 0.0-0.5 x10(3)/mcL 0.2 Basophils Abs Latest Ref Range: 0.0-0.2 x10(3)/mcL 0.0 Sed Rate Latest Ref Range: 0-20 mm/hr 14 D-Dimer, Quant Latest Ref Range: 0-500 FEU ng/ml 225 Sodium Latest Ref Range: 135-145 mmol/L 141 Potassium Latest Ref Range: 3.5-5.0 mmol/L 3.7 Chloride Latest Ref Range: 98-107 mmol/L 101 CO2 Latest Ref Range: 22-31 mmol/L 28 Anion Gap Latest Ref Range: 5-15 mmol/L 12 BUN Latest Ref Range: 8-18 mg/dL 10 Creatinine Latest Ref Range: 0.70-1.20 mg/dL 0.68 (L) Estimated GFR Latest Ref Range: >=60 >60 Glucose Lvl Latest Ref Range: 65-199 mg/dL 96 Calcium Latest Ref Range: 8.5-10.5 mg/dL 9.4 Total Protein Latest Ref Range: 6.1-8.0 gm/dL 8.2 (H) Albumin Latest Ref Range: 3.2-5.2 gm/dL 4.5 Total Bilirubin Latest Ref Range: 0.2-1.3 mg/dL 0.3 Bili, Direct Latest Ref Range: 0.0-0.3 mg/dL 0.1 Alk Phos Latest Ref Range: 40-104 unit/L 87 AST Latest Ref Range: 0-30 unit/L 24 ALT Latest Ref Range: 0-30 unit/L 11 CRP High Sens Latest Units: mg/L 1.1 documented in this encounter Plan of Treatment Upcoming Encounters Date Type Specialty Care Team Description 05/28/2022 Appointment Pulmonology 05/28/2022 Office Visit Pulmonology Sonja Jenkins MD [facility] Pulmonary Medici [place] [phone] (Wo rk) documented as of this encounter Procedures Procedure Name Priority Date/Time Associated Comments Diagnosis HEMOGRAM Routine 09/14/2015 3:21 PM Weight loss Results f or this EST procedure are i n the results section. DIFFERENTIAL, Routine 09/14/2015 3:21 PM Weight loss Results for this AUTOMATED EST procedure are i n the results section. D-DIMER, QUANTITATIVE Routine 09/14/2015 3:21 PM MILLER (dyspnea on Results for this EST exertion) procedure are in Edema of lower the results extremity, section. unspecified laterality SEDIMENTATION RATE Routine 09/14/2015 3:21 PM Weight loss Res ults for this EST procedure are i n the results section. CBC (WITH DIFF) Routine 09/14/2015 3:21 PM Weight loss EST CRP, CARDIAC RISK (HS Routine 09/14/2015 3:21 PM Weight loss Results for this CRP) EST procedure are i n the results section. COMPREHENSIVE Routine 09/14/2015 3:21 PM Weight loss Results for this METABOLIC PANEL EST procedure ar e in (NON-FASTING) the results section. documented in this encounter Results XR Chest Routine PA & Lateral (12/29/2015 11:35 AM EDT) Anatomical Region Laterality Modality Chest N/A Digital Radiography Specimen (Source) Anatomical Location Collection Method / Collectio n Time Received Time / Laterality Volume Impressions 12/29/2015 12:01 PM EDT IMPRESSION: Mild degree of fibrosis and upper lung z ones. No other significant abnormality. Narrative 12/29/2015 12:01 PM EDT EXAMINATION: XR CHEST ROUTINE PA AND LATERAL CLINICAL HISTORY: Some MILLER, expiratory w heezing on exam. Weight loss. ? lung process. TECHNIQUE: Standing PA and lateral chest COMPARISON: Chest CT 02/18/2004 FINDINGS: There are reticular markings in the uppe r lung zones most likely due to a mild degree of fibrosis. The lungs are otherw ise clear. The cardial mediastinal silhouette and mario appear normal. No pl eural effusion or significant bone abnormality is seen. Again noted are jesus gical clips in the left upper quadrant of the abdomen. Procedure Note French Tate MD - 12/29/2015Formatt ing of this note might be different from the original. EXAMINATION: XR CHEST ROUTINE PA AND LAT ERAL CLINICAL HISTORY: Some MILLER, expiratory w heezing on exam. Weight loss. ? lung process. TECHNIQUE: Standing PA and lateral chest COMPARISON: Chest CT 02/18/2004 FINDINGS: There are reticular markings in the uppe r lung zones most likely due to a mild degree of fibrosis. The lungs are otherw ise clear. The cardial mediastinal silhouette and mario appear normal. No pl eural effusion or significant bone abnormality is seen. Again noted are jesus gical clips in the left upper quadrant of the abdomen. IMPRESSION IMPRESSION: Mild degree of fibrosis and upper lung z ones. No other significant abnormality. Hesham Dwyer MD IMG DX ORDERABLES Differential, Automated (09/14/2015 3:21 PM EST) athologist Signature Neutrophils % 39.3 % CERNER MILLENNIUM Neutr Abs (ANC) 2.46 1.50 - CERNER 6.30 MILLENNIUM x10(3)/mcL Lymphocytes % 50.5 % CERNER MILLENNIUM Lymphocytes Abs 3.2 1.0 - 3.6 CERNER x10(3)/mcL MILLENNIUM Monocytes % 6.9 % CERNER MILLENNIUM Monocyte Abs 0.4 0.2 - 1.0 CERNER x10(3)/mcL MILLENNIUM Eosinophils % 2.6 % CERNER MILLENNIUM Eosinophils Abs 0.2 0.0 - 0.5 CERNER x10(3)/mcL MILLENNIUM Basophils % 0.5 % CERNER MILLENNIUM Basophils Abs 0.0 0.0 - 0.2 CERNER x10(3)/mcL MILLENNIUM Immature Gran % 0.20 % CERNER MILLENNIUM Comment: Immature granulocytes(IG's)percentage an d absolute count will include metamyelocytes, myelocytes, and promyelo cytes. Blood smears from CBCs yielding IG's will be scanned manually for concor dance. If this scan disagrees with the automated IG or if promyelocytes are not ed, a manual differential will be performed. Linda Gran Abs 0.01 0.00 - 0.05 x10(3)/mcL CER NER MILLENNIUM Specimen Anatomical Collection Method Collection Time Receive d Time (Source) Location / / Volume Laterality Blood specimen 09/14/2015 3:21 PM 016 3:41 (specimen) EST PM EST Resulting Agency Comment Spec In Lab Hesham Dwyer MD HEMATOLOGY ORDERABLES Performing Organization Address City/State/[place] [address] CERNER MILLENNIUM (ABNORMAL) Hemogram (09/14/2015 3:21 PM EST) athologist Signature WBC 6.2 4.0 - 10.0 CERNER x10(3)/mcL MILLENNIUM RBC 4.42 3.93 - CERNER 5.22 MILLENNIUM x10(6)/mcL Hemoglobin 12.1 11.2 - CERNER 15.7 gm/dL MILLENNIUM Hematocrit 38.1 34.0 - CERNER 45.0 % MILLENNIUM MCV 86.2 79.0 - CERNER 94.0 fL MILLENNIUM MCH 27.4 26.6 - CERNER 32.2 pg MILLENNIUM MCHC 31.8 (L) 32.0 - CERNER 36.5 gm/dL MILLENNIUM Platelets 242 145 - 370 CERNER x10(3)/mcL MILLENNIUM RDWSD 43.5 35.0 - CERNER 46.0 fL MILLENNIUM RDWCV 13.7 10.9 - CERNER 14.4 % MILLENNIUM MPV 9.4 9.0 - 12.0 CERNER fL MILLENNIUM Specimen Anatomical Collection Method Collection Time Receive d Time (Source) Location / / Volume Laterality Blood specimen 09/14/2015 3:21 PM 016 3:41 (specimen) EST PM EST Resulting Agency Comment Spec In Lab Hesham Dwyer MD HEMATOLOGY ORDERABLES Performing Organization Address City/State/ZIP Code Phon e Number [address] CERNER MILLENNIUM High Sensitivity CRP (09/14/2015 3:21 PM EST) athologist [facility] CRP High Sens 1.1 mg/L CERNER MILLENNIUM Comment: Interpretations: 1) For accurate cardiac risk [...] and Cardiovascular Disease. ??Circulatio n 2003; 107:499-511 2. Ridker PM. ??Clinical applications of C-reactive protein for cardiovascular disease detection and prevention. ??Circ ulation 2003; 107:363-369 Specimen Anatomical Collection Method Collection Time Receive d Time (Source) Location / / Volume Laterality Blood specimen 09/14/2015 3:21 PM 016 3:41 (specimen) EST PM EST Resulting Agency Comment Spec In Lab Hesham Dwyer MD CHEMISTRY ORDERABLES Performing Organization Address City/[facility] [place] [address] CERNER MILLENNIUM Sedimentation rate (09/14/2015 3:21 PM EST) athologist Signature Sed Rate 14 0 - 20 CERNER mm/hr MILLENNIUM Specimen Anatomical Collection Method Collection Time Receive d Time (Source) Location / / Volume Laterality Blood specimen 09/14/2015 3:21 PM 016 3:41 (specimen) EST PM EST Resulting Agency Comment Spec In Lab Hesham Dwyer MD HEMATOLOGY ORDERABLES Performing Organization Address City/[facility] [place] [address] CERNER MILLENNIUM (ABNORMAL) Comprehensive metabolic panel (non-fasting) (09/14/2015 3:21 PM EST) athologist Signature Glucose Lvl 96 65 - 199 CERNER mg/dL MILLENNIUM Comment: Diabetes: >=200 mg/dL plus symp toms BUN 10 8 - 18 mg/dL CERNER MILLENNIUM Creatinine 0.68 (L) 0.70 - 1.20 mg/dL CERNER MILL ENNIUM Comment: Please note that the pediatric reference intervals supplied above were not validated at [facility]. Results from pediatri c patients should be interpreted in conjunction to the patient's age, height and muscle mass. Sodium 141 135 - 145 mmol/L CERNER NILAY NIUM Potassium 3.7 3.5 - 5.0 mmol/L CERNER NILAY NIUM Comment: Please note: ??Patients with WBC >100,00 0 may have falsely elevated Potassium levels. ??For accurate Potassium quantif ication in these patients send serum separator tube (gold top) for subsequent determinations. ??Contact the Clinical Chemistry Laboratory if there are any qu estions. Chloride 101 98 - 107 mmol/L CERNER MILLENN IUM CO2 28 22 - 31 mmol/L CERNER MILLENNI UM Anion Gap 12 5 - 15 mmol/L CERNER MILLENNIU M Calcium 9.4 8.5 - 10.5 mg/dL CERNER NILAY NIUM Total Protein 8.2 (H) 6.1 - 8.0 gm/dL CERNER MIL LENNIUM Albumin 4.5 3.2 - 5.2 gm/dL CERNER MILLENN IUM AST 24 0 - 30 unit/L CERNER MILLENNIU M ALT 11 0 - 30 unit/L CERNER MILLENNIU M Alk Phos 87 40 - 104 unit/L CERNER MILLENN IUM Total Bilirubin 0.3 0.2 - 1.3 mg/dL CERNER M ILLENNIUM Bili, Direct 0.1 0.0 - 0.3 mg/dL CERNER MILL ENNIUM Estimated GFR >60 >=60 CERNER MILLENNIU M Comment: This estimated GFR (eGFR) value was [...] the following links into your internet browser. [email or web address] Specimen Anatomical Collection Method Collection Time Receive d Time (Source) Location / / Volume Laterality Blood specimen 09/14/2015 3:21 PM 016 3:41 (specimen) EST PM EST Resulting Agency Comment Spec In Lab Hesham Dwyer MD CHEMISTRY ORDERABLES Performing Organization Address City/State/[place] [address] CERNER MILLENNIUM D-Dimer, Quantitative (09/14/2015 3:21 PM EST) P athologist Signature D-Dimer, Quant 225 0 - 500 CERNER FEU ng/ml MILLENNIUM Comment: The D-Dimer assay is used to aid in the diagnosis of deep vein thrombosis and pulmonary embolism. A normal D-Dimer res ult (less than 500 FEU ng/ml) has a negative predictive value of approximate ly 95% for the exclusion of acute PE and DVT when there is low to moderate pr etest probability. Specimen Anatomical Collection Method Collection Time Receive d Time (Source) Location / / Volume Laterality Blood specimen 09/14/2015 3:21 PM 016 3:41 (specimen) EST PM EST Resulting Agency Comment Spec In Lab Hesham Dwyer MD HEMATOLOGY ORDERABLES Performing Organization Address [facility]/[place] [address] CERNER MILLENNIUM documented in this encounter Visit Diagnoses Diagnosis Lumbosacral spondylosis without myelopat hy Disorder of bursae and tendons in should er region Disorders of bursae and tendons in shoul jhon region, unspecified Primary osteoarthritis of hip, unspecifi ed laterality Weight loss Loss of weight MILLER (dyspnea on exertion) Other dyspnea and respiratory abnormalit y Edema of lower extremity, unspecified la terality MILLER (dyspnea on exertion) Other dyspnea and respiratory abnormalit y documented in this encounter Care Teams Geospatial Extractor Analysis Relationship Specialty Start Date End Date Julieta Bonilla PA PCP - General 04/22/15 05/15/[address] [place] [address] documented as of this encounter
--- OUTSIDE RECORDS SUMMARY | 2022-03-12 15:45 | XMS_ITS | Encounter Summary ---
:1950 Author Organization [facility] [place] [address] Care Team Providers Name Role Phone Julieta Bonilla Primary Care Provider Reason for Visit Reason Onset Date Comments Medication Refill 04/08/2016 Encounter Details Date Type Department Care Team Description 04/08/2016 Refill Rheumatology at [facility] [place] [address] Social History Tobacco Use Types Packs/Day [...] Pulmonology Sonja Jenkins MD [facility] er Pulmonary Medici [place], [place] [address] (Wo rk) documented as of this encounter Visit Diagnoses Not on filedocumented in this encounter Care Teams Fishing Hand Relationship Specialty Start Date End Date Julieta Bonilla PA PCP - General 04/22/15 05/15/[address] [place] [address] documented as of this encounter
--- OUTSIDE RECORDS SUMMARY | 2022-03-12 15:45 | XMS_ITS | Encounter Summary ---
:1950 Author Organization [facility] Address [facility] [place] [address] Care Team Providers Name Role Phone Julieta Bonilla Primary Care Provider Encounter Details Date Type Department Care Team Description 03/02/2017 Orders Only Rheumatology at [facility] Mando Wang MD [facility] [place] [address] GENERAL INTERNAL [phone] MEDIC[place], [place] [address] (Wo rk) Social History Tobacco [...] [facility] er Pulmonary Mediczion powers [place], [place] [address] (Wo rk) documented as of this encounter Visit Diagnoses Not on filedocumented in this encounter Care Teams Electricians Top Helper Relationship Specialty Start Date End Date Julieta Bonilla PA PCP - General 04/22/15 05/15/[address] [place] [address] documented as of this encounter
--- OUTSIDE RECORDS SUMMARY | 2022-03-12 15:45 | XMS_ITS | Encounter Summary ---
:1950 Author Organization [facility] [place] [address] Care Team Providers Name Role Phone Julieta Bonilla Primary Care Provider Encounter Details Date Type Department Care Team Description 07/23/2016 Hospital XRay at [facility] Hesham Dwyer Lumbar degenerative disc dis ease; Encounter 1 [facility] MD Nell Back pain, unspecified back location, un specified back pain laterality, [place] [address] RHEUMATOLOGY DEPT. [phone] [place], [place] [address] (Wo rk) Social History Tobacco [...] Visit Pulmonology Sonja Jenkins MD [facility] er Pulmonary Natal[place], [place] [address] (Wo rk) documented as of this encounter Procedures Procedure Name Priority Date/Time Associated Diagnosis Comme nts XR LUMBAR SPINE 2 Routine 07/23/2016 12:55 Lumbar degenerative Results for this OR 3 VIEWS PM EST disc disease procedure are in Back pain, the results unspecified back section. location, unspecified back pain laterality, unspecified chronicity documented in this encounter Results XR Lumbar [...] mm. Hesham Dwyer MD IMG DX ORDERABLES documented in this encounter Visit Diagnoses Diagnosis Lumbar degenerative disc disease Degeneration of lumbar or lumbosacral in tervertebral disc Back pain, unspecified back location, un specified back pain laterality, unspecified chronicity documented in this encounter Care Teams Appraisal Manager Relationship Specialty Start Date End Date UpJulieta vasquez PA PCP - General 04/22/15 05/15/17 [address] [place] [address] documented as of this encounter
--- OUTSIDE RECORDS SUMMARY | 2022-03-12 15:45 | XMS_ITS | Encounter Summary ---
:1950 Author Organization [place] [id number] Care Team Providers Name Role Phone Julieta Bonilla Primary Care Provider Reason for Referral Physical Therapy (Routine) - Closed Specialty Diagnoses / Procedures Referred By Contact Refer red To Contact Physical Therapy Diagnoses Chronic midline low back pain with bilateral sciatica Og Escamilla PA [facility] [place] [address] [place] [address] Phone: Referral ID Status Reason Start Date Expiration Date Visits V isits Requested Authorized [id number] Closed Evaluate and 03/14/2016 03/14/2017 8 8 Treat Reason for Visit Reason Comments Low Back Pain Bilateral Hip Pain Bilateral Leg Pain Neck Pain Consultation (Routine) - Closed Specialty Diagnoses / Procedures Referred By Contact Refer red To Contact Orthopaedics Diagnoses Lumbosacral spondylosis without myelopathy Spondylosis of cervical region without myelopathy or radiculopathy Back pain, unspecified back pain laterality, unspecified chronicity, unspecified location Hesham Dwyer MD [facility] [place]AT[place] [address] [place] [address] Referral ID Status Reason Start Date Expiration Date Visits V isits Requested Authorized [id number] Closed Consult, 01/23/2016 01/22/2017 1 1 Test & Treat Encounter Details Date Type Department Care Team Description 03/14/2016 Office Visit [facility] at [facility], Ingrisi c midline low [place] PA [facility] f[facility] a[facility] sciatic[facility] [address], [place], [place] [phone] Social History Tobacco Use Types Packs/Day Years Used Date Never Smoker Smokeless Tobacco: Never Used Alcohol Use Standard Drinks/Week Comments No 0 (1 standard drink = 0.6 oz pure alcoho l) Sex Assigned at Date Recorded Not on file documented as of this encounter Progress Notes Og Escamilla, SARTHAK - 03/14/2016 8:00 AM EDT Subjective: Ashley Da Silva is a 65-year-old female seen today at the request of Hesham Dweyr M.D.for chief complaint of low back pain present for the past 30 years. She reports a long history of generalized arthritis throughout her body, that appears to run in her family. She reports that she has had long- standing chronic low back pain for the past 30 years, distribution is primarily in the midline low back, bilateral buttocks, with intermittent radiation to the proximal posterior thigh. She denies radiation past the knee. She reports generalized numbness over the posterior thigh and the anterior shins bilaterally, as well as generalized numbness over her feet. She does not report any focal weakness, aside from an intermittent sense of weakness with the left lower extremity. She does not report anything that consistently improves her pain aside from changing positions frequently. She is worse with most physical activity, including standing, walking, bending forward, laying flat on her back. Her standing is limited to about 10 minutes, and she does not report any consistent distance that limits her walking. She does not report any lower extremity pain stopping her from her walking or standing. Instead, it appears that her back pain is worsened with his activities, and is associated with a sense of generalized numbness over her lower extremities. Review of systems is positive for weight loss which appears to be under current GI workup. Otherwise negative for other gastrointestinal symptoms, constitutional symptoms, bowel or bladder changes. She has had extensive pharmacologic treatment for this including voltaren gel, oxycodone, tramadol, amitriptyline, acetaminophen. She reports that only oxycodone, and tramadol provided mild to moderate relief of her back pain. She denies any prior spine surgeries or spine injections. She has been doing some self-directed exercises and stretches without much benefit. She denies tobacco use. She denies alcohol use. 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 Objective: This is a thin 65-year-old female with a flat affect, but cooperative and responsive throughout the examination. She walks with a guarded gait. She is able to toe walk and heel walk without weakness, but expresses discomfort. Her low back is normal to inspection. She is diffusely tender to palpation over the low back and the bilateral buttocks. Lumbar flexion to about 10??, lumbar extension to neutral, both with back pain at end ranges. Motor examination shows 5 out of 5 strength in all lower extremity muscle groups. Sensory examination to light touch shows no focal deficits. Straight leg raising bilaterally produces back pain, but no radiating lower extremity pain. Reflexes are +2 at both knees, trace at both ankles. Hip range of motion the supine position elicits back pain, but no groin or anterior thigh discomfort. Clonus and Babinski signs are absent. Peripheral pulses are palpable. CT of the abdomen and pelvis dated 04/22/2015 was reviewed today. There is a lumbar curve, apex to theleft, centered at L1-L2. There is marrow edema at the L1 and L2 vertebral bodies, with marginal osteophytes. There are diminished disc heights at L1-L2, L2-L3, L5-S1. There are multilevel degenerative facet changes. No fractures are appreciated. The lumbar spine otherwise shows moderate changes of spondylosis. Assessment/plan: Ashley Da Silva is a 65-year-old female who was had about 30 years of low back pain with bilateral buttock and bilateral proximal thigh radiation. There are no focal signs suggestive of radiculopathy, or spinal stenosis with neurogenic claudication. Her symptoms show generalized pain andtenderness that is nonanatomic in its distribution. I see no current need for further spine imaging.Conservative treatment options are most appropriate at this time. The patient is already in a numberpharmacologic medications appropriate her condition, but it is not appears that she has had much physical treatments. I suggested to her to work on the pool, which would be certainly be more comfortable for her, but I reiterated the need to still have some land-based physical therapy. I talked to her about the Reji method, and she agreed to meet with our spine center physical therapist. I see no distinct directional preference at this point in time, as she appears to have pain and almost any endrange. She would most likely benefit from mobilization. Functional methodist program is certainly aconsideration, but she does not express any functional goals at this time. I discussed with her the contingency of performing a lumbar MRI without contrast if physical therapyis of no benefit to her. She directly informed me that she would not be interested in any surgical intervention. documented in this encounter Plan of Treatment Upcoming Encounters Date Type Specialty Care Team Description 05/28/2022 Appointment Pulmonology 05/28/2022 Office Visit Pulmonology Sonja Jenkins MD [facility] er Pulmonary Natal[address] powers [place], [place] [address] (Wo rk) Scheduled Referrals Name Type Priority Associated Diagnoses Order S chedule Referral to Outpatient Referral Routine Chronic Midline Low O rdered: Physical Therapy Back Pain With 6 Bilateral Sciatica documented as of this encounter Visit Diagnoses Diagnosis Chronic midline low back pain with bilat eral sciatica documented in this encounter Care Teams Sawmill Worker Relationship Specialty Start Date End Date Julieta Bonilla PA PCP - General 04/22/15 05/15/[address] [place] [address] documented as of this encounter
--- OUTSIDE RECORDS SUMMARY | 2022-03-12 15:45 | XMS_ITS | Encounter Summary ---
:1950 Author Organization [facility] Address [facility] [place] [address] Care Team Providers Name Role Phone Julieta Bonilla Primary Care Provider Reason for Visit Reason Onset Date Comments Prior Authorization 09/16/2016 celecoxib 100 mg-luis alfredo roved Encounter Details Date Type Department Care Team Description 09/16/2016 Telephone Rheumatology [place] [facility] Bertha Mccartney Prior Authorization [facility] (celecoxi b [address] mg-approved) [place] [address] Social History Tobacco Use Types Packs/Day Years Used Date Never Smoker Smokeless Tobacco: Never Used Alcohol Use Standard Drinks/Week Comments No 0 (1 standard drink = 0.6 oz pure alcoho l) Sex Assigned at Date Recorded Not on file documented as of this encounter Miscellaneous Notes Telephone Encounter - Bertha Mccartney - 09/16/2016 5:22 PM EST celecoxib (CELEBREX) 100 mg Capsule 90 capsule 3 09/05/2016 ?? Sig - Route: Take 1 capsule by mouth nightly. - Oral Approved by medicare from 09/04/2016 until 08/17/2017. Ref#: [id number] documented in this encounter Plan of Treatment Upcoming Encounters Date Type Specialty Care Team Description 05/28/2022 Appointment Pulmonology 05/28/2022 Office Visit Pulmonology Sonja Jenkins MD [facility] er Pulmonary Medici [place], [place] [address] (Wo rk) documented as of this encounter Visit Diagnoses Not on filedocumented in this encounter Care Teams Apprise Counselor Relationship Specialty Start Date End Date Julieta Bonilla PA PCP - General 04/22/15 05/15/17 [address] [place] [address] documented as of this encounter
--- OUTSIDE RECORDS SUMMARY | 2022-03-12 15:45 | XMS_ITS | Encounter Summary ---
:1950 Author Organization [facility] Address [place] [address] Care Team Providers Name Role Phone Julieta Bonilla Primary Care Provider Reason for Visit Reason Onset Date Comments Other 10/02/2015 results Encounter Details Date Type Department Care Team Description 10/02/2015 Telephone [place] [facility] Carlita Cummings, Other (results) [facility] [place] [address] Social History Tobacco Use Types Packs/Day Years Used Date Never Smoker Smokeless Tobacco: Never Used Alcohol Use Standard Drinks/Week Comments No 0 (1 standard drink = 0.6 oz pure alcoho l) Sex Assigned at Date Recorded Not on file documented as of this encounter Miscellaneous Notes Telephone Encounter - Carlita Cummings RN - 10/02/2015 8:28 AM EST Called Ashley and let her know labs were fine. Asked her why she did not get the xray. She says her daughter was ill. She will be up this week on Friday and will get done then. Telephone Encounter - Carlita Cummings RN - 10/02/2015 8:28 AM EST ----- Message from Hesham Dwyer MD sent at 09/17/2015 1:14 PM EST ----- Please call. Labs look fine. Looks like she didn't get the x-ray? Will she be up or can she get it near home? Thanks, CB documented in this encounter Plan of Treatment Upcoming Encounters Date Type Specialty Care Team Description 05/28/2022 Appointment Pulmonology 05/28/2022 Office Visit Pulmonology Sonja Jenkins MD [facility] Medical [facility] er Pulmonary Medici [place], [place] [address] (Wo rk) documented as of this encounter Visit Diagnoses Not on filedocumented in this encounter Care Teams Wood Chopper Relationship Specialty Start Date End Date Julieta Bonilla PA PCP - General 04/22/15 05/15/17 [address] [place] [address] documented as of this encounter
--- OUTSIDE RECORDS SUMMARY | 2022-03-12 15:45 | XMS_ITS | Encounter Summary ---
:1950 Author Organization [facility] Address [facility] [address] [place] [address] Care Team Providers Name Role Phone Julieta Bonilla Primary Care Provider Reason for Visit Reason Onset Date Comments Medication Refill 09/07/2015 Encounter Details Date Type Department Care Team Description 09/07/2015 Refill [place] [facility] Hesham Dwyer MD [facility] [place] [address] RHEUMATOLOGY DEPT. [phone] [place], [place] [address] (Wo rk) Social History Tobacco [...] 05/28/2022 Office Visit Pulmonology Sonja Jenkins MD [facility] er Pulmonary Mediczion [place], [place] [address] (Wo rk) documented as of this encounter Visit Diagnoses Not on filedocumented in this encounter Care Teams Dispatcher Refinery Relationship Specialty Start Date End Date Julieta Bonilla PA PCP - General 04/22/15 05/15/[address] [place] [address] documented as of this encounter
--- OUTSIDE RECORDS SUMMARY | 2022-03-12 15:45 | XMS_ITS | Encounter Summary ---
:1950 Author Organization [facility] [place] [address] Care Team Providers Name Role Phone Julieta Bonilla Primary Care Provider Reason for Referral Consultation (Routine) - Closed Specialty Diagnoses / Procedures Referred By Contact Refer red To Contact Orthopaedics Diagnoses Lumbosacral spondylosis without myelopathy Spondylosis of cervical region without myelopathy or radiculopathy Back pain, unspecified back pain laterality, unspecified chronicity, unspecified location Hesham Dwyer MD [facility] [place] [address] [place] [address] Referral ID Status Reason Start Date Expiration Date Visits V isits Requested Authorized [id number] Closed Consult, 01/23/2016 01/22/2017 1 1 Test & Treat Encounter Details Date Type Department Care Team Description 01/23/2016 Office Visit Rheumatology at [facility] Hesham Dwyer Primary osteoarthritis of hi p, unspecified laterality; [facility] MD Nell Lumbosacral spondylosis without myelopat hy; [facility] Spondylosis of cervical lex on without myelopathy or radiculopathy; [place], [place] DR Back pain, unspecified back pain lateral ity, unspecified chronicity, unspecified location; [id number] RHE[address]PT[address] Primary osteoarthritis of left hand; [phone] [place], [place] [address] Osteoarthritis of right hand, unspecifie d osteoarthritis type [phone] (Wo rk) Social History Tobacco Use Types Packs/Day Years Used Date Never Smoker Smokeless Tobacco: Never Used Alcohol Use Standard Drinks/Week Comments No 0 (1 standard drink = 0.6 oz pure alcoho l) Sex Assigned at Date Recorded Not on file documented as of this encounter Last Filed Vital Signs Vital Sign Reading Time Taken Comments Blood Pressure 103/49 01/23/2016 10:25 AM EDT Pulse 67 01/23/2016 10:25 AM EDT Temperature 36.7 ??C (98 ??F) 01/23/2016 10:25 AM EDT Respiratory Rate - - Oxygen Saturation 99% 01/23/2016 10:25 AM EDT Inhaled Oxygen Concentration - - Weight 56.2 kg (124 lb) 01/23/2016 10:25 AM EDT Height 154.9 cm (5' 1) 01/23/2016 10:25 AM EDT Body Mass Index 23.43 01/23/2016 10:25 AM EDT documented in this encounter Patient Instructions Patient InstructionsHesham Dwyer MD - 01/23/2016 11:09 AM EDT Continue current regimen. You an use Voltaren gel on back. May consider gabapentin or Cymbalta in future. Go to [facility] at [facility] for further suggestions. We'll hold on barium swallow for now since you're putting on weight. Follow up in 6 months. Call if problems and/or losing weight again. documented in this encounter Progress Notes Hesham Dwyer MD - 01/27/2016 10:13 AM EDT Rheumatology Clinic: Dr. Dwyer 01/23/2016 [id number] Ashley Da Silva is seen in follow-up of her widespread osteoarthritis. She continues to use tramadol to control her symptoms for the most part. She tries Tylenol on occasion, but that doesn't really help. Ibuprofen helps, but she fairly quickly develops problems with her stomach. In that regard, we've been concerned about her ongoing weight loss. She had an extensive workup in gastroenterology, but all they found was a Schatzki ring that apparently was not obstructive. She is on a proton pump inhibitor. The good news is that since her last visit in August, she has put on 5 pounds, going from 119 to124. We talked about getting a barium swallow, but that has not happened. Her appetite seems better.She feels better after she eats, and she had actually lost that sensation for a while. Therefore, she seems to be heading in the right direction. In terms of her musculoskeletal system, she continues to have problems with her hands, particularly in the thumbs, as well as the low back. She also has problems with her shoulders and her wrists. She uses Voltaren gel on all these areas and finds that to be somewhat helpful. But it is her low back that's really been giving her the most problems lately. At one point, she was on true narcotics for this. She did not directly bring up the possibility of going back on narcotics today. 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 She's now going for her [place] [employer]. She also has a new granddaughter who had to be delivered by emergency due to decel erations after the mother was induced. She was born at 5 lbs. 7 oz. and is doing very well and has put on several pounds already. Patient Active Problem List Diagnosis Code ??? [...] R63.4 ??? Osteoarthritis of right hand M19.041 Medications 01/23/16 1027 Medication Sig Taking? loratadine (CLARITIN) 10 mg Tablet Yes traMADol (ULTRAM) 50 mg Tablet take 1 to 2 tablets by mouth every 8 hours if needed for pain Yes omeprazole (PRILOSEC) 20 mg Capsule, Delayed Release(E.C.) Take 1 capsule by mouth daily. Yes diclofenac (VOLTAREN) 1 % Gel Apply [...] nightly. Yes multivitamin (DAILY MULTIPLE) tablet Yes oxyCODONE (ROXICODONE) 5 mg Tablet Take 1-2 tablets by mouth every 4 hours as needed for Pain. No driving, no alcohol Patient not taking: Reported on 01/23/2016 ondansetron (ZOFRAN ODT) 4 mg Tablet, Rapid Dissolve Take 1 tablet by mouth every 8 hours as needed for Nausea. Patient not taking: Reported on 01/23/2016 Physical Exam: She looks well. She is in good spirits. Her back is really bothering her. Blood pressure 103/49, pulse 67, temperature 36.7 ??C (98 ??F), temperature source Oral, height 154.9 cm (5' 1), weight 56.2 kg (124 lb), SpO2 99 %. Skin: Clear. HEENT: Unremarkable. Lungs: She has rare crackles. She is not wheezing today. Heart: Regular rhythm and rate without murmur, gallop, or rub. Abdomen: Benign. No masses, tenderness, or organomegaly. Extremities: No edema. Good distal pulses. Musculoskeletal: She has no synovitis in her hands. She has basilar thumb OA, as well as involvementof the first MCP and IP joints of the thumbs. She has milder peripheral degenerative disease in the hands. Her wrists, elbows, and left shoulder move well. She continues to have some impingement in theright shoulder. Range of motion of the hips is actually good today, although it does produce some low back pain. Her lower extremity exam is unchanged. Neuro: Grossly intact. Assessment: We had a long discussion about her situation. Her biggest problem areas at the moment are the basilar thumb joints and I told her that there is a surgery for that. She, at the end of the visit, wondered if injections could be done there and I told her that they could. We may consider thoseat a future visit. In the meantime, we wrote her a prescription to peanut picker some first CMC splints down at [facility]. Her other big issue is the low back and we referred her to the [facility] for [facility]. In the meantime, she'll continue the tramadol and Voltaren gel, both of which have been good drugs for her. I'll see her back in six months. She understood the plan. We gave the patient the following specific instructions: Patient Instructions Continue current regimen. You an use Voltaren gel on back. May consider gabapentin or Cymbalta in future. Go to visit at [facility] for further suggestions. We'll hold on barium swallow for now since you're putting on weight. Follow up in 6 months. Call if problems and/or losing weight again. Over 30 minutes of the 40 minute follow-up were spent discussing these problems and their treatment options in [id number] counseling. Orders Placed This Encounter Procedures ??? Referral to [facility] Visit Diagnoses: 1. Primary osteoarthritis of hip, unspecified laterality 2. Lumbosacral spondylosis without myelopathy Referral to [facility] 3. Spondylosis of cervical region without myelopathy or radiculopathy Referral to [facility] 4. Back pain, unspecified back pain laterality, unspecified chronicity, unspecified location Referral to [facility] 5. Primary osteoarthritis of left hand 6. Osteoarthritis of right hand, unspecified osteoarthritis type documented in this encounter Plan of Treatment Upcoming Encounters Date Type Specialty Care Team Description 05/28/2022 Appointment Pulmonology 05/28/2022 Office Visit Pulmonology Sonja Jenkins MD [facility] Pulmonary [place], [place] [address] (Wo rk) Scheduled Referrals Name Type Priority Associated Diagnoses Order S chedule Referral to Spine Outpatient Referral Routine Lumbosacral Ord ered: Center spondylosis without 01/23/20 16 myelopathy Spondylosis of cervical region without myelopathy or radiculopathy Back Pain, Unspecified Back Pain Laterality, Unspecified Chronicity, Unspecified Location documented as of this encounter Visit Diagnoses Diagnosis Primary osteoarthritis of hip, unspecifi ed laterality Lumbosacral spondylosis without myelopat hy Spondylosis of cervical region without m yelopathy or radiculopathy Cervical spondylosis without myelopathy Back pain, unspecified back pain lateral ity, unspecified chronicity, unspecified location Primary osteoarthritis of left hand Primary localized osteoarthrosis, hand Osteoarthritis of right hand, unspecifie d osteoarthritis type documented in this encounter Care Teams Corporate Counselor Relationship Specialty Start Date End Date Julieta Bonilla PA PCP - General 04/22/15 05/15/17 [address] [place] [address] documented as of this encounter
--- OUTSIDE RECORDS SUMMARY | 2022-03-12 15:45 | XMS_ITS | Encounter Summary ---
:1950 Author Organization [facility] Address [address] [place] [address] Care Team Providers Name Role Phone Julieta Bonilla Primary Care Provider Reason for Visit Reason Onset Date Comments Medication Refill 10/12/2015 Encounter Details Date Type Department Care Team Description 10/12/2015 Refill Rheumatology at [facility] Hesham Dwyer MD [facility] [place] [address] RHEUMATOLOGY DEPT. [phone] [place], [place] [address] (Wo rk) Social History Tobacco [...] MD [facility] Pulmonary Mediczion [place], [place] [address] (Wo rk) documented as of this encounter Visit Diagnoses Not on filedocumented in this encounter Care Teams Typist Relationship Specialty Start Date End Date Julieta Bonilla PA PCP - General 04/22/15 05/15/[address] [place] [address] documented as of this encounter
--- OUTSIDE RECORDS SUMMARY | 2022-03-12 15:45 | XMS_ITS | Encounter Summary ---
:1950 Author Organization [place] [address] Care Team Providers Name Role Phone Julieta Bonilla Primary Care Provider Reason for Visit Reason Comments Medication Refill Encounter Details Date Type Department Care Team Description 04/08/2016 Refill Rheumatology at [facility] Hesham Dwyer MD [facility] [place] [address] RHEUMATOLOGY DEPT. [phone] [place], [place] [address] (Wo rk) Social History Tobacco [...] 05/28/2022 Office Visit Pulmonology Sonja Jenkins MD [facility] er Pulmonary Mediczion [place] [address] (Wo rk) documented as of this encounter Visit Diagnoses Not on filedocumented in this encounter Care Teams Survey Engineer Relationship Specialty Start Date End Date Julieta Bonilla PA PCP - General 04/22/15 05/15/[address] [place] [address] documented as of this encounter
--- OUTSIDE RECORDS SUMMARY | 2022-03-12 15:45 | XMS_ITS | Encounter Summary ---
:1950 Author Organization [facility] Address [facility] [address] [place] [address] Care Team Providers Name Role Phone Wanda Castillo Primary Care Provider Encounter Details Date Type Department Care Team Description 06/18/2017 Telephone Internal Medicine at [facility] Desiree Livingston [facility] [place] [address] Social History Tobacco Use Types Packs/Day [...] MD [facility] er Pulmonary Medici ne [place], [place] [address] (Wo rk) documented as of this encounter Visit Diagnoses Not on filedocumented in this encounter Care Teams Strike Warfare/Missile Systems Officer Relationship Specialty Start Date End Date Wanda Castillo PA PCP - General General Internal Medicine 05/16/[address] [place] [address] [place] [address] documented as of this encounter
--- OUTSIDE RECORDS SUMMARY | 2022-03-12 15:45 | XMS_ITS | Encounter Summary ---
:1950 Author Organization [facility] [place] [address] Care Team Providers Name Role Phone Wanda Castillo Primary Care Provider Encounter Details Date Type Department Care Team Description 06/18/2017 Orders Only Internal Medicine at [facility] Desiree Livingston [facility] [place] [address] Social History Tobacco Use Types Packs/Day [...] [facility] Pul[facility] Medici [place], [place] [address] (Wo rk) documented as of this encounter Visit Diagnoses Not on filedocumented in this encounter Care Teams Video Manager Relationship Specialty Start Date End Date Wanda Castillo PA PCP - General General Internal Medicine 05/16/[address] [place] [address] [place] [address] documented as of this encounter
--- OUTSIDE RECORDS SUMMARY | 2022-03-12 15:45 | XMS_ITS | Encounter Summary ---
:1950 Author Organization [facility] [place] [address] Care Team Providers Name Role Phone Julieta Bonilla Primary Care Provider Reason for Visit Reason Onset Date Comments Prior Authorization 04/04/2016 VOLTAREN GEL-APPROVE D Encounter Details Date Type Department Care Team Description 04/04/2016 Telephone Rheumatology at [facility] Bertha Mccartney Prior Authorization [facility] (VOLTAREN GEL-APPROVED) [place] [address] Social History Tobacco Use Types Packs/Day Years Used Date Never Smoker Smokeless Tobacco: Never Used Alcohol Use Standard Drinks/Week Comments No 0 (1 standard drink = 0.6 oz pure alcoho l) Sex Assigned at Date Recorded Not on file documented as of this encounter Miscellaneous Notes Telephone Encounter - Bertha Mccartney - 04/04/2016 9:51 AM EDT Medication Prior Authorization Hesham Dwyer MD Medication name/dose/directions: diclofenac (VOLTAREN) 1 % Gel/Apply 2 g topically 4 times daily Rationale for request: OA Health plan: [employer] Authorizing sales representative printing supplies name: None given Faxed to health plan on: Called on 04/04/2016 Health plan decision: Approved Quantity approved: As written Authorization number: [id number] Start date: 04/04/2016 End date: 04/04/2017 Patient notified? Phone out of service Pharmacy notified? yes documented in this encounter Plan of Treatment Upcoming Encounters Date Type Specialty Care Team Description 05/28/2022 Appointment Pulmonology 05/28/2022 Office Visit Pulmonology Sonja Jenkins MD [facility] er Pulmonary [place], [place] [address] (Wo rk) documented as of this encounter Visit Diagnoses Not on filedocumented in this encounter Care Teams Computer Publisher Relationship Specialty Start Date End Date Julieta Bonilla PA PCP - General 04/22/15 05/15/17 [address] [place] [address] documented as of this encounter
--- OUTSIDE RECORDS SUMMARY | 2022-03-12 15:45 | XMS_ITS | Encounter Summary ---
:1950 Author Organization [place] [address] Care Team Providers Name Role Phone Julieta Bonilla Primary Care Provider Reason for Visit Reason Onset Date Comments Medication Refill 08/30/2016 Encounter Details Date Type Department Care Team Description 08/30/2016 Refill Rheumatology at [facility] [place] [address] Social History Tobacco Use Types Packs/Day [...] 05/28/2022 Office Visit Pulmonology Sonja Jenkins MD [facility] er Pulmonary Medici [place], [place] [address] (Wo rk) documented as of this encounter Visit Diagnoses Not on filedocumented in this encounter Care Teams Fish Bait Processing Supervisor Relationship Specialty Start Date End Date Julieta Bonilla PA PCP - General 04/22/15 05/15/[address] [place] [address] documented as of this encounter
--- OUTSIDE RECORDS SUMMARY | 2022-03-12 15:45 | XMS_ITS | Encounter Summary ---
:1950 Author Organization [facility] [place] [address] Care Team Providers Name Role Phone Wanda Castillo Primary Care Provider Encounter Details Date Type Department Care Team Description 09/08/2017 Office Visit General Surgery at [facility], [facility] [place] [address] PATIENT NOT SEEN [facility] Hayley Estrada, [place] [address] Social History Tobacco Use Types Packs/Day Years Used Date Never Smoker Smokeless Tobacco: Never Used Alcohol Use Standard Drinks/Week Comments No 0 (1 standard drink = 0.6 oz pure alcoho l) Sex Assigned at Date Recorded Not on file documented as of this encounter Progress Notes Raquel Collazo - 09/08/2017 9:00 AM EST NO SHOW Reason for visit: Ashley would like to establish care with the [facility] Bariatric Surgery Program. She is S/P Revision of prior gastric stapling to gastric bypass with gastrojejunostomy and jejunojejunostomy; pyloroplasty 11/27/1993 Complications summary: Early Late Visits summary: Visit date Wt (lbs) BMI Pre-op HT: Post-op %EBW lost Supplement compliance Labwork Date Evaluation Results Primary care 2014 CT abdomen Mild dependent bibasilar atelectasis.There is no free intraperitoneal air or fluid. Postsurgical changes are seen from interval mesh repair of a left ventral abdominal hernia and prior Carlitos-en-Y gastric bypass. Contrast is seen in the excluded stomach and biliopancreatic limb. Similar degree of distention of the biliopancreatic limb anastomosis (series 2, image 36). There are no dilated loops of bowel. Enteric contrast is seen in the ileocecal junction and cecum. There is stool throughout the nondilated colon. ? Normal size and enhancement of the liver and spleen. Patient is status post cholecystectomy. Similar degree of intrahepatic and common bile duct dilatation compared to the prior examinations. These findings are likely related to Carlitos-en-Y gastric bypass. Diffuse fatty atrophy of the pancreas. Adrenal glands are normal. Symmetric size and enhancement of the kidneys without focal lesion. Left-sided nephrolithiasis without obstruction. No dilatation of the urinary collecting systems. The partially distended nonopacified bladder is normal in appearance. No pathologically enlarged lymph nodes. Normal caliber of the abdominal aorta. ? Similar appearance of extensive degenerative disc disease changes at L1-L2 and L2-L3 associated with a focal convex curvature at these levels. ? IMPRESSION IMPRESSION: No evidence of small bowel obstruction. Patient is status post Carlitos-en-Y gastric bypass. The excluded stomach and the biliopancreatic limb are filled with air and enteric contrast suggesting there is a gastro-gastric leak or incomplete separation of the gastric remnant from the gastric pouch. These findings are unchanged compared to the prior. Status post left ventral abdominal hernia repair with no evidence of recurrence. Similar degree of intrahepatic and common biliary ductal dilatation, likely related to postsurgical changes from a Carlitos-en-Y gastric bypass and cholecystectomy. ? 2014 EGD Normal upper third of esophagus, middle third of esophagus and lower third of esophagus. Widely patent Schatzki ring. Z-line regular, 35 cm from the ??incisors. Normal gastric fundus. Biopsied. Normal anastomosis site and limbs. Colonoscopy Mammogram Pap DEXA Problem List ??? Preoperative Class obesity, S/P RNY gastric bypass 1993 ??? GERD - History of schazi ring - dysphagia ??? Musculoskeletal issues: - Primary osteoarthritis involving multiple joints - Lumbar degenerative disc disease - Degenerative arthritis of cervical spine - Lumbosacral spondylosis without myelopathy - Right hip pain - History of left ankle fracture ??? Abdominal pain, RUQ (right upper quadrant) ??? Weight loss ??? History of small bowel obstruction ??? Low ferritin ??? Folate deficiency ??? Vitamin B deficiency This patient was not seen in this encounter. Hayley Estrada - 09/08/2017 9:00 AM EST Bariatric Surgery Program Nutrition Progress Note Patient did not show up to appointment today. documented in this encounter Plan of Treatment Upcoming Encounters Date Type Specialty Care Team Description 05/28/2022 Appointment Pulmonology 05/28/2022 Office Visit Pulmonology Sonja Jenkins MD [facility] Pulmonary Medici gio [place], [place] [address] (Wo rk) documented as of this encounter Visit Diagnoses Diagnosis DH PATIENT NOT SEEN documented in this encounter Care Teams Contact Printer Dry Film Relationship Specialty Start Date End Date Wanda Castillo PA PCP - General General Internal Medicine 05/16/17 1 [facility] [place] [address] documented as of this encounter
--- OUTSIDE RECORDS SUMMARY | 2022-03-12 15:45 | XMS_ITS | Encounter Summary ---
:1950 Author Organization [facility] [place] [address] Care Team Providers Name Role Phone Wanda Castillo Primary Care Provider Reason for Visit Reason Onset Date Comments Referral 06/18/2017 Encounter Details Date Type Department Care Team Description 06/18/2017 Telephone Internal Medicine at [facility] Nita Mcintosh Referral [facility] [place] [address] Social History Tobacco Use Types Packs/Day Years Used Date Never Smoker Smokeless Tobacco: Never Used Alcohol Use Standard Drinks/Week Comments No 0 (1 standard drink = 0.6 oz pure alcoho l) Sex Assigned at Date Recorded Not on file documented as of this encounter Miscellaneous Notes Telephone Encounter - Nita Mcintosh - 06/18/2017 1:03 PM EDT Message: Mouna from pain management calling to ask about the MRI referral. Stating that the patienthas yet to get it done and they had to cancel her procedure today. Caller and relationship (if other than patient-full name): Mouna Phone: [phone] Best time to call back: any Ok to leave a message: [y] Ok to send my- message: [n] Offered Appointment: n MA/Nurse contacted via: Message: y Call: y - no answer Pager: n documented in this encounter Plan of Treatment Upcoming Encounters Date Type Specialty Care Team Description 05/28/2022 Appointment Pulmonology 05/28/2022 Office Visit Pulmonology Sonja Jenkins MD [facility] Pulmonary Mediczion powers [place], [place] [address] (Wo rk) documented as of this encounter Visit Diagnoses Not on filedocumented in this encounter Care Teams Neurological Surgeon Relationship Specialty Start Date End Date Wanda Castillo PA PCP - General General Internal Medicine 05/16/17 1 [facility] [place] [address] documented as of this encounter
--- OUTSIDE RECORDS SUMMARY | 2022-03-12 15:45 | XMS_ITS | Encounter Summary ---
:1950 Author Organization [facility] [place] [address] Care Team Providers Name Role Phone Julieta Bonilla Primary Care Provider Reason for Visit Reason Onset Date Comments Medication Refill 01/01/2017 Encounter Details Date Type Department Care Team Description 01/01/2017 Refill Rheumatology at [facility] [place] [address] Social History Tobacco Use Types Packs/Day [...] MD [facility] er Pulmonary Medici [place], [place] [address] (Wo rk) documented as of this encounter Visit Diagnoses Not on filedocumented in this encounter Care Teams Soaker Soda Worker Relationship Specialty Start Date End Date Julieta Bonilla PA PCP - General 04/22/15 05/15/[address] [place] [address] documented as of this encounter
--- OUTSIDE RECORDS SUMMARY | 2022-03-12 15:45 | XMS_ITS | Encounter Summary ---
:1950 Author Organization [facility] [place] [address] Care Team Providers Name Role Phone Julieta Bonilla Primary Care Provider Reason for Visit Reason Onset Date Comments Medication Refill 01/01/2017 Encounter Details Date Type Department Care Team Description 01/01/2017 Refill Rheumatology at [facility] Geneva [facility] [place] [address] Social History Tobacco Use Types Packs/Day [...] 05/28/2022 Office Visit Pulmonology Sonja Jenkins MD [facility] er Pulmonary Medici [place], [place] [address] (Wo rk) documented as of this encounter Visit Diagnoses Not on filedocumented in this encounter Care Teams Mixed Livestock Farmer Relationship Specialty Start Date End Date Julieta Bonilla PA PCP - General 04/22/15 05/15/[address] [place] [address] documented as of this encounter
--- OUTSIDE RECORDS SUMMARY | 2022-03-12 15:45 | XMS_ITS | Encounter Summary ---
:1950 Author Organization [facility] [address] Care Team Providers Name Role Phone Julieta Bonilla Primary Care Provider Reason for Visit Reason Onset Date Comments Medication Refill 09/20/2016 Encounter Details Date Type Department Care Team Description 09/20/2016 Refill Rheumatology at [facility] Ade Hall Lumbosacral spondylosis with out myelopathy; [facility] Kayla De Jesus MA Disorder of bursae and tendo ns in shoulder region; [place] [address] Primary osteoarthritis of hi p, unspecified laterality [phone] Social History Tobacco Use Types Packs/Day Years [...] 05/28/2022 Office Visit Pulmonology Sonja Jenkins MD [facility] er Pulmonary Mediczion powers [place], [place] [address] (Wo rk) documented as of this encounter Visit Diagnoses Diagnosis Lumbosacral spondylosis without myelopat hy Disorder of bursae and tendons in should er region Disorders of bursae and tendons in shoul jhon region, unspecified Primary osteoarthritis of hip, unspecifi ed laterality documented in this encounter Care Teams Hot Cell Technician Relationship Specialty Start Date End Date Uptegrove, Julieta, PA PCP - General 04/22/15 05/15/17 [address] [place] [address] documented as of this encounter
--- OUTSIDE RECORDS SUMMARY | 2022-03-12 15:45 | XMS_ITS | Encounter Summary ---
:1950 Author Organization [facility] [place] [address] Care Team Providers Name Role Phone Wanda Castillo Primary Care Provider Reason for Visit Reason Onset Date Comments Medication Refill 10/06/2017 Encounter Details Date Type Department Care Team Description 10/06/2017 Refill Rheumatology at [facility] Ade Hall MA [facility] [place] [address] Social History Tobacco Use Types Packs/Day [...] 05/28/2022 Office Visit Pulmonology Sonja Jenkins MD [facility] er Pulmonary Medici [place], [place] [address] (Wo rk) documented as of this encounter Visit Diagnoses Not on filedocumented in this encounter Care Teams Laboratory Analyst Relationship Specialty Start Date End Date Wanda Castillo PA PCP - General General Internal Medicine 05/16/[address] [place] [address] [place] [address] documented as of this encounter
--- OUTSIDE RECORDS SUMMARY | 2022-03-12 15:45 | XMS_ITS | Encounter Summary ---
:1950 Author Organization [facility] [place] [address] Care Team Providers Name Role Phone Julieta Bonilla Primary Care Provider Reason for Visit Reason Onset Date Comments Medication Refill 02/28/2017 Encounter Details Date Type Department Care Team Description 02/28/2017 Refill Rheumatology at [facility] [place] [address] Social History Tobacco Use Types Packs/Day [...] 05/28/2022 Office Visit Pulmonology Sonja Jenkins MD [facility] er Pulmonary Medici [place], [place] [address] (Wo rk) documented as of this encounter Visit Diagnoses Not on filedocumented in this encounter Care Teams Film Tests Checker Relationship Specialty Start Date End Date Julieta Bonilla PA PCP - General 04/22/15 05/15/[address] [place] [address] documented as of this encounter
--- OUTSIDE RECORDS SUMMARY | 2022-03-12 15:45 | XMS_ITS | Encounter Summary ---
:1950 Author Organization [facility] [place] [address] Care Team Providers Name Role Phone Julieta Bonilla Primary Care Provider Reason for Visit Reason Onset Date Comments Prior Authorization 09/03/2016 CELECOXIB Encounter Details Date Type Department Care Team Description 09/03/2016 Telephone Rheumatology at [facility] Bertha Mccartney Prior Authorization [facility] (CELECOXI B) [place] [address] Social History Tobacco Use Types Packs/Day Years Used Date Never Smoker Smokeless Tobacco: Never Used Alcohol Use Standard Drinks/Week Comments No 0 (1 standard drink = 0.6 oz pure alcoho l) Sex Assigned at Date Recorded Not on file documented as of this encounter Miscellaneous Notes Telephone Encounter - Bertha Mccartney - 09/03/2016 5:48 PM EST Ralph FOR CELECOXIB initiated via CMM. [facility] BIN [id number] PCN [place]x [place] [id number] documented in this encounter Plan of Treatment Upcoming Encounters Date Type Specialty Care Team Description 05/28/2022 Appointment Pulmonology 05/28/2022 Office Visit Pulmonology Sonja Jenkins MD [facility] er Pulmonary Natal[place], [place] [address] (Wo rk) documented as of this encounter Visit Diagnoses Not on filedocumented in this encounter Care Teams Java Web Application Developer Relationship Specialty Start Date End Date UpJulieta vasquez PA PCP - General 04/22/15 05/15/17 [address] [place] [address] documented as of this encounter
--- OUTSIDE RECORDS SUMMARY | 2022-03-12 15:45 | XMS_ITS | Encounter Summary ---
:1950 Author Organization [facility] [place] [address] Care Team Providers Name Role Phone Wanda Castillo Primary Care Provider Reason for Visit Reason Onset Date Comments Other 05/29/2017 Recent Orders Encounter Details Date Type Department Care Team Description 05/29/2017 Telephone Internal Medicine at [facility] (Recent Orders) [facility] [place] [address] Social History Tobacco Use Types Packs/Day Years Used Date Never Smoker Smokeless Tobacco: Never Used Alcohol Use Standard Drinks/Week Comments No 0 (1 standard drink = 0.6 oz pure alcoho l) Sex Assigned at Date Recorded Not on file documented as of this encounter Miscellaneous Notes Telephone Encounter - Radha Richmond - 05/29/2017 9:00 AM EDT Patient is calling back stating the facility is [facility] [address] [facility] [address] Telephone Encounter - Mo Andino - 05/29/2017 8:55 AM EDT Message: Pt calling to ask if the recent xray orders; Mammo order and MRI order can be sent to a hospital closer to her in [facility] - pt did not know the name of the facility but will call back Caller and relationship (if other than patient-full name): pt Best time to call back: any Ok to leave a message: [y] Ok to send my- message: [n] Offered Appointment: n MA/Nurse contacted via: Message: y Call: n Pager: n documented in this encounter Plan of Treatment Upcoming Encounters Date Type Specialty Care Team Description 05/28/2022 Appointment Pulmonology 05/28/2022 Office Visit Pulmonology Sonja Jenkins MD [facility] Pulmonary Medici ne [place], [place] [address] (Wo rk) documented as of this encounter Visit Diagnoses Not on filedocumented in this encounter Care Teams Digital Imaging Specialist Relationship Specialty Start Date End Date Wanda Castillo PA PCP - General General Internal Medicine 05/16/17 1 [facility] [place] [address] documented as of this encounter
--- OUTSIDE RECORDS SUMMARY | 2022-03-12 15:45 | XMS_ITS | Encounter Summary ---
:1950 Author Organization [facility] Address [facility] [address] [place] [address] Care Team Providers Name Role Phone Julieta Bonilla Primary Care Provider Reason for Visit Reason Onset Date Comments Medication Refill 03/03/2017 Encounter Details Date Type Department Care Team Description 03/03/2017 Refill Rheumatology at [facility] Hesham Dwyer MD [facility] [place] [address] RHEUMATOLOGY DEPT. [phone] [place], [place] [address] (Wo rk) Social History Tobacco [...] MD [facility] er Pulmonary [place]ion [place] [address] (Wo rk) documented as of this encounter Visit Diagnoses Not on filedocumented in this encounter Care Teams Full Time Babysitter Relationship Specialty Start Date End Date Julieta Bonilla PA PCP - General 04/22/15 05/15/[address] [place] [address] documented as of this encounter
--- OUTSIDE RECORDS SUMMARY | 2022-03-12 15:45 | XMS_ITS | Encounter Summary ---
:1950 Author Organization [facility] Address [facility] [address] [place] [address] Care Team Providers Name Role Phone Julieta Bonilla Primary Care Provider Reason for Visit Reason Onset Date Comments Other 02/01/2016 tramadol Encounter Details Date Type Department Care Team Description 02/01/2016 Telephone Rheumatology at [facility] Carlita Cummings, Other (tramadol) [facility] [place] [address] Social History Tobacco Use Types Packs/Day Years Used Date Never Smoker Smokeless Tobacco: Never Used Alcohol Use Standard Drinks/Week Comments No 0 (1 standard drink = 0.6 oz pure alcoho l) Sex Assigned at Date Recorded Not on file documented as of this encounter Miscellaneous Notes Telephone Encounter - Carlita Cummings RN - 02/01/2016 1:54 PM EDT Ashley called and left message requesting a tramadol refill be sent to [facility] in [place]. She did not leave a phone number. Tried to call Ashley back to let her know rx sent in on 01/10/16 had two refills, but phone number listed in chart does not work. documented in this encounter Plan of Treatment Upcoming Encounters Date Type Specialty Care Team Description 05/28/2022 Appointment Pulmonology 05/28/2022 Office Visit Pulmonology Sonja Jenkins MD [facility] er Pulmonary Medici [place], [place] [address] (Wo rk) documented as of this encounter Visit Diagnoses Not on filedocumented in this encounter Care Teams Dial Marker Relationship Specialty Start Date End Date UpJulieta vasquez PA PCP - General 04/22/15 05/15/17 [address] [place] [address] documented as of this encounter
--- OUTSIDE RECORDS SUMMARY | 2022-03-12 15:45 | XMS_ITS | Encounter Summary ---
:1950 Author Organization [facility] [place] [address] Care Team Providers Name Role Phone Julieta Bonilla Primary Care Provider Encounter Details Date Type Department Care Team Description 12/29/2015 Hospital Encounter XRay at [facility] Hesham Dwyer (dyspnea on [address] [place] [address] MD Nell exertion) [place] [address] RHEUMATOLOGY DEPT. [phone] [place], [place] [address] (Wo rk) Social History Tobacco [...] 0 06/20/20 14 B-12, 1,000 mcg/mL Solution loratadine (CLARITIN) 10 0 10/04/2015 03/14/2016 mg Tablet traMADol (ULTRAM) 50 mg take 1 to 2 tablets 180 tablet 3 01/10/2016 Tablet by mouth every 8 hours if needed for pain diclofenac (VOLTAREN) 1 % Apply 2 g topically 1 Tube 11 0 09/14/2015 09/20/2016 GelIndications: 4 times daily. Lumbosacral spondylosis without myelopathy, Disorder of bursae and tendons in shoulder region, Primary osteoarthritis of hip, unspecified laterality ondansetron (ZOFRAN ODT) Take 1 tablet by 12 tablet 1 04/2303/14/2016 4 mg Tablet, Rapid mouth every 8 hours Dissolve as needed for Nausea. acetaminophen (TYLENOL) Take 500-1,000 mg 0 10/27/2017 [...] Medical [facility] Pulmonary Mediczion [place], [place] [address] (Wo rk) documented as of this encounter Procedures Procedure Name Priority Date/Time Associated Diagnosis Comme nts XR CHEST PA AND Routine 12/29/2015 11:35 AM MILLER (dyspnea on Re sults for this LATERAL EDT exertion) procedure are i n the results section. documented in this encounter [...] abnormality. Hesham Dwyer MD IMG DX ORDERABLES documented in this encounter Visit Diagnoses Diagnosis MILLER (dyspnea on exertion) Other dyspnea and respiratory abnormalit y documented in this encounter Care Teams Media Production Manager Relationship Specialty Start Date End Date Julieta Bonilla PA PCP - General 04/22/15 05/15/17 [address] [place] [address] documented as of this encounter
--- OUTSIDE RECORDS SUMMARY | 2022-03-12 15:45 | XMS_ITS | Encounter Summary ---
:1950 Author Organization [facility] Address [facility] [address] [place] [address] Care Team Providers Name Role Phone Julieta Bonilla Primary Care Provider Reason for Visit Reason Onset Date Comments Medication Refill 09/05/2016 Encounter Details Date Type Department Care Team Description 09/05/2016 Refill Rheumatology at [facility] Ade Hall Lumbar degenerative disc dis ease; [facility] Kayla De Jesus MA Back pain, unspecified back location, unspecified back pain laterality, unspecified chronicity; [place] [address] Primary osteoarthritis invol ving multiple joints; [phone] Arthralgia, uns pecified joint Social History Tobacco Use Types Packs/Day [...] 05/28/2022 Office Visit Pulmonology Sonja Jenkins MD [facility] er Pulmonary Mediczion ne [place], [place] [address] (Wo rk) documented as of this encounter Visit Diagnoses Diagnosis Lumbar degenerative disc disease Degeneration of lumbar or lumbosacral in tervertebral disc Back pain, unspecified back location, un specified back pain laterality, unspecified chronicity Primary osteoarthritis involving multipl e joints Arthralgia, unspecified joint documented in this encounter Care Teams Conservation Specialist Relationship Specialty Start Date End Date Julieta Bonilla PA PCP - General 04/22/15 05/15/17 [address] [place] [address] documented as of this encounter
--- OUTSIDE RECORDS SUMMARY | 2022-03-12 15:45 | XMS_ITS | Encounter Summary ---
:1950 Author Organization [facility] [place] [address] Care Team Providers Name Role Phone Wanda Castillo Primary Care Provider Encounter Details Date Type Department Care Team Description 09/08/2017 Telephone General [facility] Hayley Estrada, [place] [address] Social History Tobacco Use Types Packs/Day Years Used Date Never Smoker Smokeless Tobacco: Never Used Alcohol Use Standard Drinks/Week Comments No 0 (1 standard drink = 0.6 oz pure alcoho l) Sex Assigned at Date Recorded Not on file documented as of this encounter Miscellaneous Notes Telephone Encounter - Hayley Estrada - 09/08/2017 9:34 AM EST Bariatric Surgery Program Patient did not show up to appointment today. Phone call to patient but unable to leave voicemail message. documented in this encounter Plan of Treatment Upcoming Encounters Date Type Specialty Care Team Description 05/28/2022 Appointment Pulmonology 05/28/2022 Office Visit Pulmonology Sonja Jenkins MD [facility] er Pulmonary Nataliya [place], [place] [address] (Wo rk) documented as of this encounter Visit Diagnoses Not on filedocumented in this encounter Care Teams Undercutter Relationship Specialty Start Date End Date Wanda Castillo PA PCP - General General Internal Medicine 05/16/17 1 [facility] [place] [address] documented as of this encounter
--- OUTSIDE RECORDS SUMMARY | 2022-03-12 15:45 | XMS_ITS | Encounter Summary ---
:1950 Author Organization [facility] [place] [address] Care Team Providers Name Role Phone Julieta Bonilla Primary Care Provider Reason for Visit Reason Onset Date Comments Medication Refill 12/31/2015 Omeprazole Encounter Details Date Type Department Care Team Description 12/31/2015 Refill Gastroenterology at [facility] Jyothi Quach MA [facility] [place] [address] Social History Tobacco Use Types Packs/Day [...] [facility] Pulmonary Mediczion [place], [place] [address] (Wo rk) documented as of this encounter Visit Diagnoses Not on filedocumented in this encounter Care Teams Leather Scrubber Relationship Specialty Start Date End Date Julieta Bonilla PA PCP - General 04/22/15 05/15/[address] [place] [address] documented as of this encounter
--- OUTSIDE RECORDS SUMMARY | 2022-03-12 15:45 | XMS_ITS | Encounter Summary ---
:1950 Author Organization [facility] [address] Care Team Providers Name Role Phone Julieta Bonilla Primary Care Provider Reason for Visit Reason Onset Date Comments Medication Refill 12/30/2016 Encounter Details Date Type Department Care Team Description 12/30/2016 Refill Rheumatology at [facility] Geneva Hernandez LPN [facility] [place] [address] Social History Tobacco Use Types Packs/Day Years Used Date Never Smoker Smokeless Tobacco: Never Used Alcohol Use Standard Drinks/Week Comments No 0 (1 standard drink = 0.6 oz pure alcoho l) Sex Assigned at Date Recorded Not on file documented as of this encounter Miscellaneous Notes Telephone Encounter - Geneva Hernandez LPN - 12/30/2016 12:45 PM EDT Pt phone requesting a refill on her Tramadol. documented in this encounter Plan of Treatment Upcoming Encounters Date Type Specialty Care Team Description 05/28/2022 Appointment Pulmonology 05/28/2022 Office Visit Pulmonology Sonja Jenkins MD [facility] er Pulmonary Nataliya powers [place], [place] [address] (Wo rk) documented as of this encounter Visit Diagnoses Not on filedocumented in this encounter Care Teams Store Person Relationship Specialty Start Date End Date UpJulieta vasquez PA PCP - General 04/22/15 05/15/17 [address] [place] [address] documented as of this encounter
--- OUTSIDE RECORDS SUMMARY | 2022-03-12 15:46 | XMS_ITS | Encounter Summary ---
:1950 [place] [address] Care Team Providers Name Role Phone Alfredo Jamison MD Primary Care Provider Encounter Details Date Type Department Care Team Description 02/18/2015 Anesthesia Event Main Operating Room Sofi Weinberg ch, MD [facility] [place] [address] [facility] Kenny Hope MD [facility] [place] [address] [place] [address] Anesthesia Record Procedure Summary Procedure Name Responsible Anesthesia Start Anesthesia Stop Time Anesthesiologist Time @EXPLORATORY Sofi Vargas MD 02/18/15212002/18/15 2 338 LAPAROTOMY, WITH/WITHOUT BIOPSY(S) (WRVU 12.54) (N/A Abdomen) Events Date Time Event Comment 02/18/20152109 Start 2121 Transport 2124 AN Verify 2128 An Start Data 2131 An Induction 2133 An Intubation 2134 Anesthesia Ready 2155 Procedure Start 2245 Quick Note NG removed per s urgeon request 2320 Procedure Stop 2327 Extubation/LMA Out Pt demonstrat es sustained tetany, bite block in place, purposefu l movements. Adequate tidal volume and RR met. Pt r esponsive to voice, airway suctioned and ET T removed without incident. Pt continued SV pos t extubation. 2328 an stop data 2338 Stop Transport to PAC U with face mask O2 6L/min. Report given to RN at [facility] per[place] throughout. Pt opening eyes to voice, s leeping comfortably Name Total Propofol 200 mg Rocuronium 50 mg PHENYLephrine 200 mcg Ondansetron 4 mg Neostigmine 2.5 mg Glycopyrrolate 0.4 mg Succinylcholine 100 mg piperacillin-tazobactam (ZOSYN) IV (Alternative Adult) infusion 3.375 g HYDROmorphone 2 mg Propofol INF 90 mg Ketamine 10 mg/mL 70 mg lactated ringers infusion 1,000 mL 500 mL Lactated Ringers 600 mL Agents Name O2 Air Sevoflurane (et) Blood No blood administrations on file. Lines, Drains, and Airways Type Details Placement Removal Incision 02/18/15; abdomen; 02/18/15 0000 by vertical Nora Reece RN PIV cephalic vein right 11/17/14 1042 by 02/23/15 11 38 by (lateral side of arm); 22 Mona Carmichael RN gauge; KYM Barker MD; 1; no longer indicated, catheter intact; 02/23/15; 1138 Urethral Catheter 02/18/15; Abdominal 02/18/15 0000 by 02/20/15 0000 by surgery; 16; inserted at Nora Reece RN [place], Margaret this facility (By SIENA Blunt.Clear bea urine return. ); 1; 5; 10; none; drainage bag to dependent drainage; 02/20/15 NG/OG Tube 02/18/15; [place] sump; 02/18/15 0000 by 02/19/15 0000 by left nostril; inserted at Katie Maravilla RN [place], Bonnie B, RN OSH; 02/19/15 PIV 02/18/15; 1500; median 02/18/15 1500 by 02/19/152117 by von vein left (underside of FairmontDavid RN Iders tine Rn, arm); [id number] Agueda Huerta RN catheter system; 20 gauge; site symptomatic, catheter intact; 02/19/15; 2118 PIV 02/18/15; 2047; basilic 02/18/152046 by von 01/30 0000 by vein left (medial side of Lilibeth Rn, Leslye holguin, Farrah arm); [id number] Agueda Huerta RN T, RN catheter system; 20 gauge, other (see comments) (1.88 using ultrasound); intradermal injection, tolerated well; 0; 02/20/15 ETT Mask Ventilation: Easy 02/18/15 2134 by 02/18/15 2328 by (1); ETT Type: Cuffed, Beitler, Dayanara, Beit ler, Dayanara, Oral; ETT Size: 7 mm; Mac [employer] LAB[employer]ING Blade: 3; Notes: Asleep, Pre-O2, Stylette, RSI, Cricoid Pressure; Attempts: 1; Laryngoscopy Grade: 1; ETT Placement Verified By: Auscultation, Capnometry, Visual; Secured at Teeth: 21 cm; Inserted by: Beitler documented in this encounter Social History Tobacco Use Types Packs/Day Years Used Date Never Smoker Smokeless Tobacco: Never Used Alcohol Use Standard Drinks/Week Comments No 0 (1 standard drink = 0.6 oz pure alcoho l) Sex Assigned at Date Recorded Not on file documented as of this encounter OR Notes Anesthesia Postprocedure Evaluation - Sofi Vargas MD - 02/19/2015 1:00 AM EDT Patient: Ashley Da Silva Procedure(s) Performed: Procedure(s): @EXPLORATORY LAPAROTOMY, WITH/WITHOUT BIOPSY(S) @DRAINAGE OF PERITONEAL ABSCESS OR PERITONITIS; OPEN @LYSIS OF ADHESIONS Actual Anesthetic: No value filed. Patient location: PACU Post-op pain: Adequate analgesia Post-op nausea: no nausea or vomiting Last Vitals: Filed Vitals: 02/19/15 0045 BP: 165/83 Pulse: 65 Temp: Resp: 13 Post-op cardiovascular and respiratory status: is stable Level of consciousness: awake, alert and oriented Complications: no apparent complications and tolerated the procedure well Fluid Status: normal Pain somewhat difficult to control but comfortable now. Anesthesia Preprocedure Evaluation - Sofi Vargas MD - 02/18/2015 9:10 PM EDT Pre-Anesthesia Evaluation for: Ashley Da Silva a 64 y.o. female. Procedure(s): @EXPLORATORY LAPAROTOMY, WITH/WITHOUT BIOPSY(S) Patient Active Problem List Diagnosis ??? SBO (small bowel obstruction) ??? Abdominal pain, RUQ (right upper quadrant) ??? Osteoarthrosis, unspecified whether generalized or localized, pelvic region and thigh ??? Lumbosacral spondylosis without myelopathy ??? Right hip pain ??? Disorders of bursae and tendons in shoulder region, unspecified ??? Osteoarthrosis, unspecified whether generalized or localized, hand ??? Osteoarth NOS-l/leg ??? Back pain ??? Lumbar degenerative disc disease ??? Degenerative arthritis of cervical spine Past Medical History Diagnosis Date ??? Chronic back pain ??? Chronic hip pain Right ??? Arthritis ??? B12 deficiency Past Surgical History Procedure Laterality Date ??? Hysterectomy, total abdominal ??? Cholecystectomy 2009 ??? Gastrectomy 1993 ??? Tonsillectomy ??? Upper gi endoscopy, diagnostic N/A 11/17/2014 EGD, UPPER GI ENDOSCOPY performed by Virginia Macdonald MD at [facility] ??? Upper gi endoscopy, biopsy N/A 11/17/2014 UPPER GASTROINTESTINAL ENDOSCOPY,WITH BIOPSY SINGLE OR MULTIPLE performed by Virginia Macdonald MD at [facility] ??? Endoscopic us exam, esoph N/A 12/23/2014 UPPER EUS- ENDOSCOPIC ULTRASOUND performed by Mehran Ogden MD at [facility] ??? Small bowel endoscopy, past duod N/A 12/23/2014 ENDOSCOPY, ENTEROSCOPY, SMALL INTESTINE performed by Mehran Ogden MD at [facility] History Substance Use Topics ??? Smoking status: Never Smoker ??? Smokeless tobacco: Never Used ??? Alcohol Use: No History Drug Use No Allergies Allergen Reactions ??? Sulfa (Sulfonamide Antibiotics) Shortness Of Breath SHORTNESS OF BREATH, RASH ??? Valdecoxib Rash Diffuse rash Medications: MAR and/or home medications have been reviewed. Physical Exam: Filed Vitals: 07/04/15 2035 BP: Pulse: Temp: 37.3 ??C (99.1 ??F) Resp: There is no weight on file to calculate BMI. Anesthesia Physical Exam Anesthesia Plan: ASA 3 emergent general, Chart review: 64 year old patient with ischemic bowel concerning for incarceration. Previously tolerated anesthetics (MAC) without difficulty. History of gastric bypass and GERD Plan: GETA RSI Brought emergently to OR Informed Consent: Anesthetic plan and risks discussed with patient. Plan discussed with [employer] and resident. Mis. Assessment: documented in this encounter Plan of Treatment Upcoming Encounters Date Type Specialty Care Team Description 05/28/2022 Appointment Pulmonology 05/28/2022 Office Visit Pulmonology Sonja Jenkins MD [facility] er Pulmonary Mediczion [place], [place] [address] (Wo rk) documented as of this encounter Visit Diagnoses Not on filedocumented in this encounter Administered Medications Inactive Administered Medications - up to 3 most recent administrations Medication Order MAR Action Action Date Dose Rate Site glycopyrrolate (ROBINUL) Given 02/18/2015 11:07 PM EDT 0.4 mg multi-dose injection PRN, Starting on 02/18/15 at 2307, Until 02/18/15 at 2341, Anesthesia Intra-op, Routine HYDROmorphone (DILAUDID) injection Given 02/18/2015 11:10 PM EDT 0.6 mg PRN, Starting on 02/18/15 at 2141, Until 02/18/15 at 2341, Pain, Anesthesia Intra-op, Routine Given 02/18/2015 10:12 PM EDT 0.2 mg Given 02/18/2015 10:09 PM EDT 0.2 mg ketamine (KETALAR) 10 mg/mL bolus injection Given 02/18/2015 11:16 PM EDT 10 mg (Anesthesia) PRN, Starting on 02/18/15 at 2222, Until 02/18/15 at 2341, Anesthesia Intra-op Given 02/18/2015 11:13 PM EDT 10 mg Given 02/18/2015 11:12 PM EDT 10 mg lactated ringers infusion 1,000 New Bag 02/19/2015 6:00 PM EDT 1,000 mLs 100 mL/hr mL 1,000 mL, at 100 mL/hr, Intravenous, CONTINUOUS, Starting on 02/18/15 at 1900, Until 02/20/15 at 0705, Recovery (Recovery-Hospital Unit) New Bag 02/19/2015 9:17 AM EDT 1,000 mLs 100 mL/hr New Bag 02/19/2015 12:10 AM EDT 1,000 mLs 100 mL/hr lactated ringers infusion New Bag 02/18/2015 9:29 PM EDT CONTINUOUS PRN, Starting on 02/18/15 at 2129, Until 02/18/15 at 2341, Anesthesia Intra-op neostigmine (PROSTIGMINE) multi-dose Given 02/18/2015 11:07 PM E DT 2.5 mg injection PRN, Starting on 02/18/15 at 2307, Until 02/18/15 at 2341, Anesthesia Intra-op, Routine ondansetron (ZOFRAN) injection Given 02/18/2015 11:04 PM EDT 4 mg PRN, Starting on 02/18/15 at 2304, Until 02/18/15 at 2341, Nausea, Anesthesia Intra-op, Routine PHENYLephrine HCl in NS (PF) (MARLYN-SYNEPHRINE) Given 9:52 PM EDT 80 mcg 0.8 mg/10 mL (80 mcg/mL) multi-dose injection Syrg PRN, Starting on 02/18/15 at 2146, Until 02/18/15 at 2341, Anesthesia Intra-op, Routine Given 02/18/2015 9:46 PM EDT 120 mcg piperacillin-tazobactam (ZOSYN) IV Given 02/18/2015 9:44 PM EDT 3.375 g (Alternative Adult) infusion 4.5 g, Intravenous, at 200 mL/hr, EVERY 6 HOURS, First dose on 02/18/15 at 2115, Until Discontinued propofol (DIPRIVAN) 10 mg/mL bolus injection Given 11/2014 11:12 PM EDT 50 mg (Anesthesia) PRN, Starting on 02/18/15 at 2132, Until 02/18/15 at 2341, Anesthesia Intra-op Given 02/18/2015 9:32 PM EDT 150 mg propofol (DIPRIVAN) infusion New Bag 02/18/2015 10:14 PM 30 mcg/kg/min 10.8 mL/hr CONTINUOUS PRN, Starting on EDT 02/18/15 at 2214, Until 02/18/15 at 2341, Anesthesia Intra-op, Routine rocuronium (ZEMURON) multi-dose injectio n Given 02/18/2015 9:41 PM EDT 50 mg PRN, Starting on 02/18/15 at 2141, Until 02/18/15 at 2341, Anesthesia Intra-op, Routine succinylcholine (ANECTINE) injection Given 02/18/2015 9:32 PM EDT 100 mg PRN, Starting on 02/18/15 at 2132, Until 02/18/15 at 2341, Anesthesia Intra-op, Routine documented in this encounter Care Teams Orthopedic Podiatrist Relationship Specialty Start Date End Date Alfredo Jamison MD PCP - General 07/10/10 04/21/15 documented as of this encounter
--- OUTSIDE RECORDS SUMMARY | 2022-03-12 15:46 | XMS_ITS | Encounter Summary ---
:1950 Author Organization [facility] Address [facility] [address] [place] [address] Care Team Providers Name Role Phone Alfredo Jamison MD Primary Care Provider Encounter Details Date Type Department Care Team Description 12/09/2014 Anesthesia Event [place] [facility] [place] Rios, [facility] [place] [address] [facility] [phone] ANESTHESIOLOGY DEPT [place], [place] [address] Anesthesia Record Procedure Summary Procedure Name Responsible Anesthesia Start Anesthesia Stop Anesthesiologist Time Time UPPER EUS- ENDOSCOPIC ULTRASOUND (N/A Trunk) Events No events on file. [...] encounter OR Notes Anesthesia Preprocedure Evaluation - Devon Rios MD - 12/08/2014 8:38 PM EDT Pre-Anesthesia Evaluation for: Ashley Da Silva a 64 y.o. female. Procedure(s): UPPER EUS- ENDOSCOPIC ULTRASOUND Patient Active Problem List Diagnosis ??? Abdominal pain, RUQ (right upper quadrant) [...] Date ??? Hysterectomy, total abdominal ??? Cholecystectomy 2008 ??? Gastrectomy 1993 ??? Tonsillectomy ??? Upper gi endoscopy, diagnostic N/A 11/17/2014 EGD, UPPER GI ENDOSCOPY performed by Virginia Macdonald MD at [facility] ??? Upper gi endoscopy, biopsy N/A 11/17/2014 UPPER GASTROINTESTINAL ENDOSCOPY,WITH BIOPSY SINGLE OR MULTIPLE performed by Virginia Macdonald MD at [facility] History Substance Use Topics ??? Smoking status: Never Smoker ??? Smokeless tobacco: Never Used ??? Alcohol Use: No History Drug Use No Allergies Allergen Reactions ??? Cefoxitin Sodium Anaphylaxis SHORTNESS OF BREATH, RESP. DISTRESS ??? Dextrose 5 % In Water Anaphylaxis SHORTNESS OF BREATH, RESP. DISTRESS ??? Sulfa (Sulfonamide Antibiotics) Anaphylaxis SHORTNESS OF BREATH, RASH ??? Valdecoxib Rash Diffuse rash ??? Cefoxitin Medications: MAR and/or home medications have been reviewed. Physical Exam: There were no vitals filed for this visit. There is no weight on file to calculate BMI. Anesthesia Physical Exam Anesthesia Plan: ASA 2 general and MAC, with a(n) intravenous induction 64 yro s/p gastric bypass presenting with chronic abdominal discomfort for EUS- ultrasound evaluation. PMHx significant for osteoarthritis, lumbar DDD and chronic back. pain Plan: MAC with GA back-up. Region - Other Informed Consent: [facility]. Assessment: documented in this encounter Plan of Treatment Upcoming Encounters Date Type Specialty Care Team Description 05/28/2022 Appointment Pulmonology 05/28/2022 Office Visit Pulmonology Sonja Jenkins MD [facility] er Pulmonary Medici [place], [place] [address] (Wo rk) documented as of this encounter Visit Diagnoses Not on filedocumented in this encounter Care Teams Drawer In Relationship Specialty Start Date End Date Alfredo Jamison MD PCP - General 07/10/10 04/21/15 documented as of this encounter
--- OUTSIDE RECORDS SUMMARY | 2022-03-12 15:46 | XMS_ITS | Encounter Summary ---
:1950 Author Organization [facility] [place] [address] Care Team Providers Name Role Phone Alfredo Jamison MD Primary Care Provider Encounter Details Date Type Department Care Team Description 12/23/2014 Hospital Encounter Gastroenterology at [facility] [place] Mehran Ogden [facility] [place] [address] [place] [address] [facility] [place], [place] [address] Social History Tobacco Use Types Packs/Day Years Used Date Never Smoker Smokeless Tobacco: Never Used Alcohol Use Standard Drinks/Week Comments No 0 (1 standard drink = 0.6 oz pure alcoho l) Sex Assigned at Date Recorded Not on file documented as of this encounter Last Filed Vital Signs Vital Sign Reading Time Taken Comments Blood Pressure 122/62 12/23/2014 2:21 PM EDT Pulse 68 12/23/2014 2:21 PM EDT Temperature - - Respiratory Rate 17 12/23/2014 2:21 PM EDT Oxygen Saturation 98% 12/23/2014 2:21 PM EDT Inhaled Oxygen Concentration - - Weight - - Height - - Body Mass Index - - documented in this encounter Medications at Time of Discharge Medication Sig Dispensed Refills Start Date End Date desonide (DESOWEN) 0.05 % Prn 0 05/04/2014 Lotion cyanocobalamin, vitamin every 30 days. 0 06/20/20 14 B-12, 1,000 mcg/mL Solution omeprazole (PRILOSEC) 20 mg Take 1 capsule by 30 capsule 6 0 11/10/2014 11/10/2015 Capsule, Delayed mouth daily. Release(E.C.)Indications: Abdominal pain, RUQ (right upper quadrant), Epigastric pain, Gastroesophageal reflux disease without esophagitis acetaminophen (TYLENOL) 500 Take 500-1,000 mg 0 10/27/2017 mg Tablet by mouth every 6 hours as needed for Pain. traMADol (ULTRAM) 50 mg take 1-2 tablets 180 tablet 5 201403/16/2015 TabletIndications: by mouth every 8 Osteoarthrosis, unspecified hours if needed whether generalized or for pain localized, hand, Osteoarthrosis, unspecified whether generalized or localized, lower leg, Degenerative arthritis of cervical spine, Osteoarthrosis, unspecified whether generalized or localized, pelvic region and thigh amitriptyline (ELAVIL) 50 Take 1 tablet by 30 tablet 2 04/1810/27/2017 mg Tablet mouth nightly. multivitamin (DAILY 0 04/03/200606/16 MULTIPLE) tablet documented as of this encounter Progress Notes Chirag Dennison RN - 12/20/2014 1:53 PM EDT ENDOSCOPY PATIENT HISTORY Name: MADIE DA SILVA : 1950 Age: 64 y.o. Address: [address] [place] [id number] (home) Mobile: Telephone Information: Referring Provider: Alfredo Jamison Referral Procedure: Upper EUS - Chronic RUQ abdominal pain, N/V, abnormal CT Sedation Plan: Per anesthesia Allergies: Allergies Allergen Reactions ??? Cefoxitin Sodium Anaphylaxis SHORTNESS OF BREATH, RESP. DISTRESS ??? Dextrose 5 % In Water Anaphylaxis SHORTNESS OF BREATH, RESP. DISTRESS ??? Sulfa (Sulfonamide Antibiotics) Anaphylaxis SHORTNESS OF BREATH, RASH ??? Valdecoxib Rash Diffuse rash ??? Cefoxitin Problem list: Patient Active Problem List Diagnosis Code ??? Disorders of bursae and tendons in shoulder region, unspecified 726.10 ??? Osteoarthrosis, unspecified whether generalized or localized, hand 715.94 ??? Osteoarth NOS-l/leg 715.96 ??? Back pain 724.5 ??? Lumbar degenerative disc disease 722.52 ??? Degenerative arthritis of cervical spine 721.0 ??? Lumbosacral spondylosis without myelopathy 721.3 ??? Right hip pain 719.45 ??? Osteoarthrosis, unspecified whether generalized or localized, pelvic region and thigh 715.95 ??? Abdominal pain, RUQ (right upper quadrant) 789.01 Past Medical History: Past Medical History Diagnosis Date ??? Chronic back pain ??? Chronic hip pain Right ??? Arthritis ??? B12 deficiency Past Surgical History: Past Surgical History Procedure Laterality Date ??? Hysterectomy, total abdominal ??? Cholecystectomy 2008 ??? Gastrectomy 1993 ??? Tonsillectomy ??? Upper gi endoscopy, diagnostic N/A 11/17/2014 EGD, UPPER GI ENDOSCOPY performed by Virginia Macdonald MD at [facility] ??? Upper gi endoscopy, biopsy N/A 11/17/2014 UPPER GASTROINTESTINAL ENDOSCOPY,WITH BIOPSY SINGLE OR MULTIPLE performed by Virginia Macdonald MD at [facility] Medications: Prior to Admission medications Medication Sig Start Date End Date Taking? Authorizing Provider acetaminophen (TYLENOL) 500 mg Tablet Take 500-1,000 mg by mouth every 6 hours as needed for Pain. Provider, Historical omeprazole (PRILOSEC) 20 mg Capsule, Delayed Release(E.C.) Take 1 capsule by mouth daily. 11/10/14 11/10/15 Vicky Davis APRN dicyclomine (BENTYL) 10 mg Capsule Take 1 capsule by mouth every 6 hours as needed. 11/10/14 Vicky Davis APRN desonide (DESOWEN) 0.05 % Lotion Prn 05/04/14 Provider, Historical cyanocobalamin, vitamin B-12, 1,000 mcg/mL Solution every 30 days. 06/20/14 Provider, Historical traMADol (ULTRAM) 50 mg Tablet take 1-2 tablets by mouth every 8 hours if needed for pain 08/25/14 Hesham Dwyer MD amitriptyline (ELAVIL) 50 mg Tablet Take 1 tablet by mouth nightly. 04/28/14 Hesham Dwyer MD multivitamin (DAILY MULTIPLE) tablet 04/03/06 documented in this encounter H&P Notes Cassidy Black MD - 12/23/2014 1:23 PM EDT Procedure: EUS Indication: abnormal mrcp, ruq pain Brief HPI: 64 yo F with months of RUQ pain, MRCP notable for dilation of CBD (distal). No nausea, fevers, chills, alarm features. Problem List: Patient Active Problem List Diagnosis Code ??? Disorders of bursae and tendons in shoulder region, unspecified 726.10 ??? Osteoarthrosis, unspecified whether generalized or localized, hand 715.94 ??? Osteoarth NOS-l/leg 715.96 ??? Back pain 724.5 ??? Lumbar degenerative disc disease 722.52 ??? Degenerative arthritis of cervical spine 721.0 ??? Lumbosacral spondylosis without myelopathy 721.3 ??? Right hip pain 719.45 ??? Osteoarthrosis, unspecified whether generalized or localized, pelvic region and thigh 715.95 ??? Abdominal pain, RUQ (right upper quadrant) 789.01 ASA: II Mallampati: II Sedation Plan: MAC EXAM: HEENT: Airway examined, oropharynx clear LUNGS: Clear to auscultation HEART: Regular rate and rhythm, normal S1, S2 ABDOMEN: Normal bowel sounds, soft, non tender, non distended, A/P 64 y.o. female here for eus Proceed with the planned endoscopic procedure. Risks and benefits of the procedure explained to the patient. Consent signed. documented in this encounter Plan of Treatment Upcoming Encounters Date Type Specialty Care Team Description 05/28/2022 Appointment Pulmonology 05/28/2022 Office Visit Pulmonology Sonja Jenkins MD [facility] er Pulmonary Mediczion [place], [place] [address] (Wo rk) documented as of this encounter Procedures Procedure Name Priority Date/Time Associated Diagnosis Comme nts ENDOSCOPY, 12/23/2014 1:42 Abnormal magnetic resonan ce ENTEROSCOPY, PM EDT cholangiopancreatography SMALL INTESTINE (MRCP) (WRVU 2.59) UPPER EUS- 12/23/2014 1:42 Abnormal magnetic resonan ce ENDOSCOPIC PM EDT cholangiopancreatography ULTRASOUND (MRCP) UPPER Routine 12/23/2014 1:19 Results for EUS-ENDOSCOPIC PM EDT this procedur e ULTRASOUND are in the results section. documented in this encounter Results UPPER EUS-ENDOSCOPIC ULTRASOUND (12/23/2014 1:19 PM EDT) Component Value Ref Test Analysis Performed At [facility] Range Method Time Signature UPPER [facility] ENDOSCOPIC Endoscopy ULTRASOUND _ Patient Name: Madie Da Silva ? Procedure Date: 12/23/2014 1:19 PM ? N: [id number] ? Date of : 1950 ? Age: 64 ? Order #: [id number] ? Procedure: ? Upper EUS Indications: ? Common bile duct dilation (acquired ) ? [facility] Providers: ? Mehran Ogden MD, Cassidy Brar ? MD Wayne, Hesham markham, ? Thelma Hart Referring MD: ?Alfredo Jamison MD, Vicky Davis , ? CLAM GRADER Medicines: ? Monitored Anesthesia Care Complications: ? No immediate complications. Procedure: ? Pre-Anesthesia Assessment: ? - Prior to the procedure, a H istory ? and Physical was performed, a nd ? patient medications and aller gies ? were reviewed. The patient is ? competent. The risks and bene fits of ? the procedure and the sedatio n ? options and risks were discus sed with ? the patient. All questions we re ? answered and informed consent was ? obtained. Patient identificat ion and ? proposed procedure were verif ied by ? the physician in the pre-proc edure ? area. Mental Status Examinati on: ? alert and oriented. Airway ? Examination: normal oropharyn geal ? airway and neck mobility. Res piratory ? Examination: clear to auscult ation. ? CV Examination: normal. Proph ylactic ? Antibiotics: The patient does not ? require prophylactic antibiot ics. ? Prior Anticoagulants: The pat ient has ? taken no previous anticoagula nt or ? antiplatelet agents. ASA Grad e ? Assessment: II - A patient wi th mild ? systemic disease. After revie wing the ? risks and benefits, the patie nt was ? deemed in satisfactory condit ion to ? undergo the procedure. The an esthesia ? plan was to use monitored ane sthesia ? care (MAC). Immediately prior to ? administration of medications , the ? patient was re-assessed for a dequacy ? to receive sedatives. The hea rt rate, ? respiratory rate, oxygen satu rations, ? blood pressure, adequacy of p ulmonary ? ventilation, and response to care ? were monitored throughout the ? procedure. The physical statu s of the ? patient was re-assessed after the ? procedure. ? The procedure, indications, b enefits, ? risks and alternatives were e xplained ? to the patient. Specifically ? discussed were potential ? complications including, but not ? limited to, bleeding, perfora tion, ? infection, missing a cancer, and ? adverse medication reactions. The ? Endosonoscope was introduced through ? the mouth, and advanced to th e ? jejunum. The Colonoscope was ? introduced through the mouth, and ? advanced to the jejunum. The upper ? EUS was accomplished without ? difficulty. The patient maura ated the ? procedure well. ? Findings: ? Endosonographic Findings: : ? The patient had a previous gastric bypass so we could ? only visualize the left side of the patient's anatomy . ? The entire examined esophagus and stomach were normal . ? The examined body and tail of the pancreas were ? normal with the exception of slight dilation of the ? main PD to 3 mm in the body. ? Endoscopic Findings: : ? We then decided to proceed with evaluation ? endoscopically to see if we could visualize the ? papilla ? The esophagus and stomach were normal with an intact ? suture line ? We advanced the pediatric colonoscope to the J-J ? anastomosis and retrograde to the stomach. We then ? evaluated the ampulla and there was no evidence of ? ampullary mass lesion. Copious bile drained from the ? ampulla. ? Impression: ?- No evidence of ampullary mass on ? endoscopic imaging. Given the ? patient's normal liver tests and the ? fact that she has had a CCY, her CBD ? is likely not due to an obstr uctive ? process Recommendation: ?- Follow expectantly in the clinic. I ? would favor repeating the MRC P in ? three months to ensure stabil ity ? Attending Participation: ? I personally performed the entire procedure. ? Mehran Ogden MD 12/23/2014 2:13 PM This report has been signed electronically. Number of Addenda: 0 Note Initiated On: 12/23/2014 1:19 PM Specimen (Source) Anatomical Collection Method Collection Time Re ceived Time Location / / Volume Laterality 12/23/2014 1:19 PM EDT Alfredo Jamison MD GENERAL SURGICAL ORDERABLES Performing Organization Address City/State/ZIP Code Phon e Number [facility] documented in this encounter Visit Diagnoses Not on filedocumented in this encounter Administered Medications Inactive Administered Medications - up to 3 most recent administrations Medication Order MAR Action Action Date Dose Rate Site lactated ringers infusion New Bag 12/23/2014 11:00 AM EDT 50 mL/hr 50 mL/hr 50 mL/hr, Intravenous, CONTINUOUS, Starting on Fri12/23/14 at 1100, Until Fri12/23/14 at 1822, Endoscopy (Day of Procedure) documented in this encounter Active and Recently Administered Medications Times are shown in EDT. Continuous Medication Order 12/21/2014 12/22/2014 12/23/2014 lactated ringers infusion (CANCELED) 1100 (New Bag - Provider: Nelsy Moreno RN) 50 mL/hr, at 50 mL/hr, Intravenous, CONT INUOUS, Starting Fri12/23/14 at 1100, Until Fri12/23/14 at 1822, Endo (Day of Procedure) documented in this encounter Care Teams Picture Painter Relationship Specialty Start Date End Date Alfredo Jamison MD PCP - General 07/10/10 04/21/15 documented as of this encounter
--- OUTSIDE RECORDS SUMMARY | 2022-03-12 15:46 | XMS_ITS | Encounter Summary ---
:1950 Author Organization [facility] [place] [address] Care Team Providers Name Role Phone Alfredo Jamison MD Primary Care Provider Encounter Details Date Type Department Care Team Description 11/17/2014 Telephone [place] [facility] Vicky Davis APRN [facility] [place] [address] [place] [address] [phone] (Wo rk) Social History Tobacco Use Types Packs/Day Years Used Date Never Smoker Smokeless Tobacco: Never Used Alcohol Use Standard Drinks/Week Comments No 0 (1 standard drink = 0.6 oz pure alcoho l) Sex Assigned at Date Recorded Not on file documented as of this encounter Miscellaneous Notes Telephone Encounter - Vicky Davis APRN - 11/17/2014 1:47 PM EDT Contacted Ashley regarding the results of her MRCP that revealed: Dilated intra and extrahepatic biliary tree without choledocholithiasis. Abrupt caliber change of the distal CBD proximal to the ampulla. No surrounding mass is identified either MRCP or CT scan. Of note, on limited evaluation of the abdomen performed as part of a chest CT scan 2003, left intrahepatic biliary ductal dilation was evident. It is possible this finding indicates a benign distal CBD stricture. Recommend EUS to further evaluate and order placed. Her EGD unrevealing except for Schatzki's ring. No stricture or narrowing. Recommend that she continue PPI. Cancel barium swallow. She is amenable tothis. documented in this encounter Plan of Treatment Upcoming Encounters Date Type Specialty Care Team Description 05/28/2022 Appointment Pulmonology 05/28/2022 Office Visit Pulmonology Sonja Jenkins MD [facility] er Pulmonary Medici [place] [address] (Wo rk) documented as of this encounter Visit Diagnoses Diagnosis Abnormal magnetic resonance cholangiopan creatography (MRCP) documented in this encounter Care Teams Side Framer Relationship Specialty Start Date End Date Alfredo Jamison MD PCP - General 07/10/10 04/21/15 documented as of this encounter
--- OUTSIDE RECORDS SUMMARY | 2022-03-12 15:46 | XMS_ITS | Encounter Summary ---
:1950 Author Organization [facility] Address [address] [place] [address] Care Team Providers Name Role Phone Alfredo Jamison MD Primary Care Provider Reason for Visit Reason Comments Results Encounter Details Date Type Department Care Team Description 01/05/2015 Telephone Gastroenterology at [facility] [place] Sravani Hamlin RN Results [facility] Kayla khan [facility] [place] [address] Social History Tobacco Use Types Packs/Day Years Used Date Never Smoker Smokeless Tobacco: Never Used Alcohol Use Standard Drinks/Week Comments No 0 (1 standard drink = 0.6 oz pure alcoho l) Sex Assigned at Date Recorded Not on file documented as of this encounter Miscellaneous Notes Telephone Encounter - Sravani Bae RN - 01/05/2015 11:31 AM EDT Patient calls requesting 12/23/14 EUS results. Please advise. documented in this encounter Plan of Treatment Upcoming Encounters Date Type Specialty Care Team Description 05/28/2022 Appointment Pulmonology 05/28/2022 Office Visit Pulmonology Sonja Jenkins MD [facility] er Pulmonary Nataliya powers [place], [place] [address] (Wo rk) documented as of this encounter Visit Diagnoses Not on filedocumented in this encounter Care Teams Inside Sales Territory Manager Relationship Specialty Start Date End Date Alfredo Jamison MD PCP - General 07/10/10 04/21/15 documented as of this encounter
--- OUTSIDE RECORDS SUMMARY | 2022-03-12 15:46 | XMS_ITS | Encounter Summary ---
:1950 Author Organization [place] [address] Care Team Providers Name Role Phone Julieta Bonilla Primary Care Provider Encounter Details Date Type Department Care Team Description 07/12/2015 Telephone [place] [facility]ick[place] Blair [place] [address] Social History Tobacco Use Types Packs/Day Years Used Date Never Smoker Smokeless Tobacco: Never Used Alcohol Use Standard Drinks/Week Comments No 0 (1 standard drink = 0.6 oz pure alcoho l) Sex Assigned at Date Recorded Not on file documented as of this encounter Miscellaneous Notes Telephone Encounter - Vickie Blair LPN - 07/12/2015 4:02 PM EST Called and gave verbal script for tramadol to Zev in [facility] since [facility] I called and canceled that script in [facility]. Ashley called andmentioned it was [facility]. I called and l/m for Ashley letting her know it was in the [place] and she can pick it up in about 1 hr. documented in this encounter Plan of Treatment Upcoming Encounters Date Type Specialty Care Team Description 05/28/2022 Appointment Pulmonology 05/28/2022 Office Visit Pulmonology Sonja Jenkins MD [facility] er Pulmonary Mediczion [place], [place] [address] (Wo rk) documented as of this encounter Visit Diagnoses Not on filedocumented in this encounter Care Teams Aviation Safety Equipment Technician Relationship Specialty Start Date End Date UpJulieta vasquez PA PCP - General 04/22/15 05/15/17 [address] [place] [address] documented as of this encounter
--- OUTSIDE RECORDS SUMMARY | 2022-03-12 15:46 | XMS_ITS | Encounter Summary ---
:1950 Author Organization [facility] Address [facility] [place] [address] Care Team Providers Name Role Phone Alfredo Jamison MD Primary Care Provider Reason for Visit Reason Onset Date Comments Patient Not Seen 02/09/2015 Encounter Details Date Type Department Care Team Description 02/09/2015 Follow-Up Gastroenterology at [place] Vicky Davis, PATIENT NOT SEEN [facility] [place] [address] [facility] [phone] [place] [address] (Wo rk) Social History Tobacco Use Types Packs/Day Years Used Date Never Smoker Smokeless Tobacco: Never Used Alcohol Use Standard Drinks/Week Comments No 0 (1 standard drink = 0.6 oz pure alcoho l) Sex Assigned at Date Recorded Not on file documented as of this encounter Progress Notes Vicky Davis APRN - 02/09/2015 10:49 AM EDT No show This patient was not seen in this encounter. documented in this encounter Plan of Treatment Upcoming Encounters Date Type Specialty Care Team Description 05/28/2022 Appointment Pulmonology 05/28/2022 Office Visit Pulmonology Sonja Jenkins MD [facility] er Pulmonary [place] [address] (Wo rk) documented as of this encounter Visit Diagnoses Diagnosis PATIENT NOT SEEN documented in this encounter Care Teams Juvenile Counselor Relationship Specialty Start Date End Date Alfredo Jamison MD PCP - General 07/10/10 04/21/15 documented as of this encounter
--- OUTSIDE RECORDS SUMMARY | 2022-03-12 15:46 | XMS_ITS | Encounter Summary ---
:1950 Author Organization [facility] [place] [address] Care Team Providers Name Role Phone Alfredo Jamison MD Primary Care Provider Reason for Visit Reason Onset Date Comments Prior Authorization 02/15/2015 Omeprazole Encounter Details Date Type Department Care Team Description 02/15/2015 Telephone Gastroenterology at [facility] [place] [facility] Main, Prior Authorization [facility] Kayla Roe MA (Omeprazole) [place] [address] [facility] [phone] [place] DEPT Social History Tobacco Use Types Packs/Day Years Used Date Never Smoker Smokeless Tobacco: Never Used Alcohol Use Standard Drinks/Week Comments No 0 (1 standard drink = 0.6 oz pure alcoho l) Sex Assigned at Date Recorded Not on file documented as of this encounter Miscellaneous Notes Telephone Encounter - Mita Bear CMA - 03/28/2015 1:35 PM EDT Prior Auth Medication name/dose/directions: Omeprazole 20 mg Daily Pharmacy Name and phone number: [facility] [phone] Insurance name and phone number: [employer] [phone] Insurance ID number: [id number] Faxed to health plan on: 03-03-2015 re-faxed 03-20-2015 Medications tried and failed: Unknown. Health plan decision: Approved : Authorization # [id number], received 03-22-15. Term 03-22-2015 through 03-21-2016. Telephone Encounter - Jyothi Quach MA - 03/22/2015 11:17 AM EDT [facility] notified of prior authorization. Telephone Encounter - Jyothi Quach MA - 03/21/2015 10:37 AM EDT Called to check on prior authorization. Fax not received, verified fax number and recent. Telephone Encounter - Jyothi Quach MA - 03/03/2015 2:12 PM EDT Prior Auth Medication name/dose/directions: Omeprazole 20 mg Daily Pharmacy Name and phone number: [facility] [phone] Insurance name and phone number: [employer] [phone] Insurance ID number: [id number] Faxed to health plan on: 03-03-2015 re-faxed 03-20-2015 Medications tried and failed: Unknown. Health plan decision: Authorization # [id number], received 03-22-15. Term 03-22-2015 through 03-21-2016. Telephone Encounter - Jyothi Quach MA - 03/01/2015 4:49 PM EDT Called to start PA and was directed to print a document. Printed will attempt to start PA soon. documented in this encounter Plan of Treatment Upcoming Encounters Date Type Specialty Care Team Description 05/28/2022 Appointment Pulmonology 05/28/2022 Office Visit Pulmonology Sonja Jenkins MD [facility] Pulmonary Medici [place] [address] (Wo rk) documented as of this encounter Visit Diagnoses Not on filedocumented in this encounter Care Teams Supervisor Fishing Relationship Specialty Start Date End Date Alfredo Jamison MD PCP - General 07/10/10 04/21/15 documented as of this encounter
--- OUTSIDE RECORDS SUMMARY | 2022-03-12 15:46 | XMS_ITS | Encounter Summary ---
:1950 Author Organization [facility] [place] [address] Care Team Providers Name Role Phone Julieta Bonilla Primary Care Provider Encounter Details Date Type Department Care Team Description 07/12/2015 Telephone Rheumatology at [facility] [place] Vickie Blair LPN [facility] [place] [address] Social History Tobacco Use Types Packs/Day Years Used Date Never Smoker Smokeless Tobacco: Never Used Alcohol Use Standard Drinks/Week Comments No 0 (1 standard drink = 0.6 oz pure alcoho l) Sex Assigned at Date Recorded Not on file documented as of this encounter Miscellaneous Notes Telephone Encounter - Vickie Blair LPN - 07/12/2015 2:16 PM EST Script for tramadol [facility] per approval of Dr. Dwyer. documented in this encounter Plan of Treatment Upcoming Encounters Date Type Specialty Care Team Description 05/28/2022 Appointment Pulmonology 05/28/2022 Office Visit Pulmonology Sonja Jenkins MD [facility] er Pulmonary Nataliya powers [place], [place] [address] (Wo rk) documented as of this encounter Visit Diagnoses Not on filedocumented in this encounter Care Teams Pricing Strategist Relationship Specialty Start Date End Date Julieta Bonilla PA PCP - General 04/22/15 05/15/17 [address] [facility] [place] [address] documented as of this encounter
--- OUTSIDE RECORDS SUMMARY | 2022-03-12 15:46 | XMS_ITS | Encounter Summary ---
:1950 Author Organization [facility] [place] [address] Care Team Providers Name Role Phone Alfredo Jamison MD Primary Care Provider Reason for Visit Reason Comments Follow Up Surgery Encounter Details Date Type Department Care Team Description 03/24/2015 Office Visit General Surgery at CL[facility], [place] [address] Social History Tobacco Use Types Packs/Day Years Used Date Never Smoker Smokeless Tobacco: Never Used Alcohol Use Standard Drinks/Week Comments No 0 (1 standard drink = 0.6 oz pure alcoho l) Sex Assigned at Date Recorded Not on file documented as of this encounter Last Filed Vital Signs Vital Sign Reading Time Taken Comments Blood Pressure 127/66 03/24/2015 12:44 PM EDT Pulse 71 03/24/2015 12:44 PM EDT Temperature - - Respiratory Rate 16 03/24/2015 12:44 PM EDT Oxygen Saturation 100% 03/24/2015 12:44 PM EDT Inhaled Oxygen Concentration - - Weight 55.3 kg (122 lb) 03/24/2015 12:44 PM EDT Height - - Body Mass Index 22.31 02/20/2015 9:00 AM EDT documented in this encounter Progress Notes Elmer Jenkins MD - 03/24/2015 1:28 PM EDT General Surgery Follow-up Clinic Visit Pre-operative Diagnosis: small bowel obstruction Post-operative Diagnosis: Small bowel obstruction secondary to internal hernia Procedure (02/18/15): Exploratory laparotomy with lysis of adhesions, reduction of internal hernia Pathology (date): NA Complications: none Treatments: NA HPI: Mrs. Da Silva is a 64F with history of arthritis, chronic back pain, Carlitos-en-Y with Retrocolic RY reconstruction , presents with suddent onsent 1 day history diffuse abdominal pain with associated nausea and emesis x1 at outside facility. The pain is 10/10, crampy in nature, worse with movement, radiating throughout the abdomen, has not had a similar pain in the past, no previous known bowel obstructions. CT from outside facility demonstrated SBO with transition point at area of volvulus in the LLQ and mid-abdominal fat containing hernia. Denies shortness of breath and chest pain. Of note EGD 11/2014demonstrated widely patent Schatzke ring and EUS without evidence of ampullary mass, performed for observed CBD dilatation. Hospital Course: Ashley Da Silva was taken to the operating room where exploratory laparotomy and reduction of internal hernia was performed. She tolerated the operation well and without complication. She was admitted post-operatively for observation and management. The patient's hospital course was uncomplicated and she was deemed stable for discharge to home on post-operative day three. POD#0 pt transferred to floor, stable POD#1 no events, pain controlled with IV dilaudid and ativan for muscle spasms, sips and chips diet POD#2 catheter removed, diet advanced as ana, passing gas, no BM, K of 2.9 replaced POD#3 - no events, pt read for discharge, nurse reported fowl smelling urine - UA ordered POD#4 - pt reports flatus and BM, cleared by PT for discharge POD#5 - discharged on cipro for 5 days for UTI Interval History: Since surgery she has been doing well over all. Main complaint today is pain. She reports pain on the right side, sharp, worse with movement. Has had to sleep in a recliner because of the pain. Pain isonly on the right side. Appears to be along the distribution of the rectus muscle and only feels it with movement. She reports she ran out of oxycodone (given 120 tabs at dc) - but has been using it daily along with tylenol. Her activity level is improving and she has been getting outside and walking daily. She reports good appetite, better than before surgery. She is nearly back to her normal diet -taking 3-4 small meals daily. Moving bowels regularly. Some mild occasional nausea - thinks associated with R- sided pain. No vomiting. She reports some occasional (1-2/week) low grad temps 99-100. She has been feeling cold all the time - although states this is normal for her - more than prior to surgery. She reports since hospitalization she has lost 10-15 lbs. Medications: Current Outpatient Prescriptions on File Prior to Visit Medication Sig Dispense Refill ??? traMADol (ULTRAM) 50 mg Tablet take 1 to 2 tablets by mouth every 8 hours if needed for pain 180tablet 1 ??? oxyCODONE (ROXICODONE) 5 mg Tablet Take 1 tablet by mouth every 4 hours as needed for Pain. 120 tablet 0 ??? acetaminophen (TYLENOL) 500 mg Tablet Take 500-1,000 mg by mouth every 6 hours as needed for Pain. ??? omeprazole (PRILOSEC) 20 mg Capsule, Delayed Release(E.C.) Take 1 capsule by mouth daily. 30 capsule 6 ??? dicyclomine (BENTYL) 10 mg Capsule Take 1 capsule by mouth every 6 hours as needed. 90 capsule 6 ??? desonide (DESOWEN) 0.05 % Lotion Prn 0 ??? cyanocobalamin, vitamin B-12, 1,000 mcg/mL Solution every 30 days. 0 ??? amitriptyline (ELAVIL) 50 mg Tablet Take 1 tablet by mouth nightly. 30 tablet 2 ??? multivitamin (DAILY MULTIPLE) tablet No current facility-administered medications on file prior to visit. Physical Exam: Filed Vitals: 03/24/15 1244 BP: 127/66 Pulse: 71 Resp: 16 Gen: NAD, cold and asks for a warm blanket, pleasant and cooperative HEENT: EOM, PERRL, neck supple CV: regular, no murmurs, rubs, or gallops Resp: CTAB, no wheezes or ronchi Abd: soft, tenderness to palpation in RLQ along rectus muscle, left side non- tender, no peritoneal signs, incisions healing well, c/d/i, no erythema or drainage Ext: warm, well-perfused, trace edema Neuro: A&Ox3, non-focal No labs or imaging Assessment: Ashley Da Silva is a 64 y.o. y/o Female who underwent gastric bypass in 1993, who is now s/p ex lap and ANA LILIA with reduction of internal hernia on February 18. She appears to be recovering well from this procedure with some persistent pain that I suspect is muscular in nature, given its relationto movement and distribution. She is otherwise progressing well with activity, diet, and moving her bowels normally. He midline incision is healing well without evidence of hernia. We discussed that she can try to manage her pain by adding some motrin or advil around the clock alternating with the tylenol she is already taking. She will aim to wean off the oxycodone in the next 2 weeks. She is also willing to try a heat pack to the area. We discussed that this pain should gradually get better with time. She will call if she has any worsening pain, high grade fevers, or other concerning symptoms. Plan: 1. Hot pack to area of pain PRN 2. Add scheduled OTC advil and continue round the clock tylenol 3. Wean oxycodone - script refilled 4. No specific follow-up required - will call if pain not resolved or PRN for issues 5. Plan to see PCP early next week documented in this encounter Plan of Treatment Upcoming Encounters Date Type Specialty Care Team Description 05/28/2022 Appointment Pulmonology 05/28/2022 Office Visit Pulmonology Sonja Jenkins MD [facility] Pul[facility] [place] [id number] (Wo rk) documented as of this encounter Visit Diagnoses Diagnosis Small bowel obstruction Unspecified intestinal obstruction documented in this encounter Care Teams Software Administrator Relationship Specialty Start Date End Date Alfredo Jamison MD PCP - General 07/10/10 04/21/15 documented as of this encounter
--- OUTSIDE RECORDS SUMMARY | 2022-03-12 15:46 | XMS_ITS | Encounter Summary ---
:1950 Author Organization [facility] Address [address] [place] [address] Care Team Providers Name Role Phone Alfredo Jamison MD Primary Care Provider Encounter Details Date Type Department Care Team Description 12/23/2014 Anesthesia Event [place] [facility] Danna Mcginnis [facility] [place] [address] [facility] [phone] DR ANESTHESIOLOGY [place], [place] [address] Anesthesia Record Procedure Summary Procedure Name Responsible Anesthesia Start Anesthesia Stop Anesthesiologist Time Time UPPER EUS- Danna Mcginnis MD 12/23/14 1340 12/23/14 1416 ENDOSCOPIC ULTRASOUND (N/A Trunk) Events Date Time Event Comment 12/23/2014 1340 Start 1340 An Start Data 1344 AN Verify 1346 An Induction 1410 an stop data 1416 Stop 1436 Name Total IV Lidocaine 60 mg Propofol 340 mg Lactated Ringers 500 mL Agents Name O2 Blood No blood administrations on file. Lines, Drains, and Airways Type Details Placement Removal PIV cephalic vein right (lateral 11/17/14 1042 by 1138 by side of arm); 22 gauge; KYM denson, SIENA Mcguire MD; 1; no longer indicated, catheter intact; 02/23/15; 1138 PIV 12/23/14; 1048; metacarpal 12/23/14 1048 by Khoi montoya, 12/23/14 1454 by Christian, vein right (top of hand); Nelsy Camejo RN Montse Camejo RN [id number] catheter system; 20 gauge; distraction, intradermal injection; 12/23/14; 7321 documented in this encounter Social History Tobacco Use Types Packs/Day Years Used Date Never Smoker Smokeless Tobacco: Never Used Alcohol Use Standard Drinks/Week Comments No 0 (1 standard drink = 0.6 oz pure alcoho l) Sex Assigned at Date Recorded Not on file documented as of this encounter OR Notes Anesthesia Postprocedure Evaluation - Danna Mcginnis MD - 12/23/2014 2:38 PM EDT Patient: Ashley Da Silva Procedure(s) Performed: Procedure(s): UPPER EUS- ENDOSCOPIC ULTRASOUND ENDOSCOPY, ENTEROSCOPY, SMALL INTESTINE Actual Anesthetic: MAC Patient location: PACU Post-op pain: Adequate analgesia Post-op nausea: no nausea or vomiting Last Vitals: Filed Vitals: 12/23/14 1421 BP: 122/62 Pulse: 68 Resp: 17 Post-op cardiovascular and respiratory status: is stable Level of consciousness: awake, alert and oriented Complications: no apparent complications and tolerated the procedure well Fluid Status: normal Anesthesia Preprocedure Evaluation - Danna Mcginnis MD - 12/23/2014 10:39 AM EDT Pre-Anesthesia Evaluation for: Ashley Da Silva [...] ENDOSCOPY performed by Virginia Macdonald MD at [facility] ENDOSCOPY ??? Upper gi endoscopy, biopsy N/A 11/17/2014 UPPER GASTROINTESTINAL ENDOSCOPY,WITH BIOPSY SINGLE OR MULTIPLE performed by Virginia Macdonald MD at [facility] ENDOSCOPY History Substance Use Topics ??? Smoking [...] Anesthesia Physical Exam Anesthesia Plan: ASA 2 MAC, with a(n) intravenous induction Patient is a 64 yo female with h/o gastric bypass surgery, DDD who presents for EGD. Case was previously cancelled in November due to... Patient previously tolerated MAC without issue. Plan: MAC with standard ASA monitors. GA as backup. Region - Other Informed Consent: Anesthetic plan and risks discussed with patient. Use of blood products discussed with patient whom consented to blood products. Plan discussed with COMPUTATIONAL CHEMIST. [facility] [place]. Assessment: documented in this encounter Plan of Treatment Upcoming Encounters Date Type Specialty Care Team Description 05/28/2022 Appointment Pulmonology 05/28/2022 Office Visit Pulmonology Sonja Jenkins MD [facility] Pulmonary [place], [place] [address] (Wo rk) documented as of this encounter Visit Diagnoses Not on filedocumented in this encounter Administered Medications Inactive Administered Medications - up to 3 most recent administrations Medication Order MAR Action Action Date Dose Rate Site lactated ringers infusion New Bag 12/23/2014 1:40 PM EDT CONTINUOUS PRN, Starting on Fri12/23/14 at 1340, Until Fri12/23/14 at 1424, Anesthesia Intra-op lidocaine (PF) (XYLOCAINE) 100 mg/5 mL (2 %) Given 5 1:46 PM EDT 60 mg injection PRN, Starting on Fri12/23/14 at 1346, Until Fri12/23/14 at 1424, Anesthesia Intra-op, Routine propofol (DIPRIVAN) 10 mg/mL bolus injection Given 5 2:00 PM EDT 20 mg (Anesthesia) PRN, Starting on Fri12/23/14 at 1346, Until Fri12/23/14 at 1424, Anesthesia Intra-op Given 12/23/2014 1:59 PM EDT 20 mg Given 12/23/2014 1:58 PM EDT 20 mg documented in this encounter Care Teams Centrifugal Separator Relationship Specialty Start Date End Date Alfredo Jamison MD PCP - General 07/10/10 04/21/15 documented as of this encounter
--- OUTSIDE RECORDS SUMMARY | 2022-03-12 15:46 | XMS_ITS | Encounter Summary ---
:1950 Author Organization [facility] Address [address] [place] [address] Care Team Providers Name Role Phone Alfredo Jamison MD Primary Care Provider Encounter Details Date Type Department Care Team Description 02/18/2015 Orders Only General Surgery at [facility] Sadie Duff MD [facility] [place] [address] GENERAL SURGERY [phone] [place], [place] [address] (Wo rk) Social History Tobacco [...] 05/28/2022 Office Visit Pulmonology Sonja Jenkins MD [facility] er [facility]monary Medic[facility] powers [place], [place] [address] (Wo rk) documented as of this encounter Procedures Procedure Name Priority Date/Time Associated Diagnosis Comme nts FILM LIBRARY Routine 02/18/2015 1:15 PM Results f or this STORAGE ONLY DX EDT procedure ar e in ABDOMEN the results section. documented in this encounter Results Film Library- Storage only DX Abdomen (02/18/2015 1:15 PM EDT) Anatomical Region Laterality Modality Other Specimen (Source) Anatomical Collection Method Collection Time Re ceived Time Location / / Volume Laterality 02/18/2015 1:15 PM EDT Narrative 02/18/2015 1:34 PM EDT This is a Non-reportable exam Procedure Note SUSANA, UNSIGNED REPORT - 02/18/2015Formatt ing of this note might be different from the original. This is a Non-reportable exam Sadie Duff MD IMG FILM LIBRARY ORDERABLES documented in this encounter Visit Diagnoses Not on filedocumented in this encounter Care Teams Chips Screen Tender Relationship Specialty Start Date End Date Alfredo Jamison MD PCP - General 07/10/10 04/21/15 documented as of this encounter
--- OUTSIDE RECORDS SUMMARY | 2022-03-12 15:46 | XMS_ITS | Encounter Summary ---
:1950 Author Organization [facility] [place] [address] Care Team Providers Name Role Phone Alfredo Jamison MD Primary Care Provider Reason for Visit Reason Comments Medication Refill Encounter Details Date Type Department Care Team Description 03/16/2015 Refill Rhe[place]ology at [facility] Hesham Dwyer MD [facility] [place] [address] RHEUMATOLOGY DEPT. [phone] [place], [place] [address] (Wo rk) Social History Tobacco [...] Office Visit Pulmonology Sonja Jenkins MD [facility] [place] [address] (Wo rk) documented as of this encounter Visit Diagnoses Not on filedocumented in this encounter Care Teams [employer] Founder Relationship Specialty Start Date End Date Alfredo Jamison MD PCP - General 07/10/10 04/21/15 documented as of this encounter
--- OUTSIDE RECORDS SUMMARY | 2022-03-12 15:46 | XMS_ITS | Encounter Summary ---
:1950 Author Organization [facility] Address [facility] [place] [address] Care Team Providers Name Role Phone Alfredo Smith MD Primary Care Provider Encounter Details Date Type Department Care Team Description 02/18/2015 [address], RUQ 02/23/2015 Encounter Chuck Garza MD ([facility] quadrant) [facility] [address] GENERAL SURGERY [place] [id number] [phone] Social History Tobacco Use Types Packs/Day Years Used Date Never Smoker Smokeless Tobacco: Never Used Alcohol Use Standard Drinks/Week Comments No 0 (1 standard drink = 0.6 oz pure alcoho l) Sex Assigned at Date Recorded Not on file documented as of this encounter Last Filed Vital Signs Vital Sign Reading Time Taken Comments Blood Pressure 129/70 02/23/2015 6:36 AM EDT Pulse 81 02/23/2015 6:36 AM EDT Temperature 36.6 ??C (97.9 ??F) 02/23/2015 6:36 AM EDT Respiratory Rate 16 02/23/2015 6:36 AM EDT Oxygen Saturation 99% 02/23/2015 6:36 AM EDT Inhaled Oxygen Concentration - - Weight 58.2 kg (128 lb 4.9 oz) 02/23/2015 5:37 AM EDT Height 157.5 cm (5' 2) 02/20/2015 9:00 AM EDT Body Mass Index 23.47 02/20/2015 9:00 AM EDT documented in this encounter Discharge Summaries Kiki Ferreira MD - 02/19/2015 1:52 PM EDT Inpatient - Discharge Summary Patient Name: Ashley Da Silva Patient Age: 64 y.o. Birthdate: 1950 Admit date: 02/18/2015 Discharge date and time: 02/23/2015 Attending Physician: Sadie Duff MD Primary Diagnosis: SBO (small bowel obstruction) HPI: Mrs. Da Silva is a 64F [...] breath and chest pain. Of note EGD 11/2014 demonstrated widely patent Schatzke ring and EUS without evidence of ampullary mass, performed for observed CBD dilatation. Operations/Major Procedures: Operations: 02/18/2015 - 02/19/2015 Surgeon(s) and Role: * Sadie Duff MD - Primary * Zeus Welch MD - Resident-Surgeon Rajan: Procedure(s): @EXPLORATORY LAPAROTOMY, WITH/WITHOUT BIOPSY(S) @DRAINAGE OF PERITONEAL ABSCESS OR PERITONITIS; OPEN @LYSIS OF ADHESIONS Hospital Course: Ashley Da Silva was taken to the operating room where the above procedures were performed. She tolerated the operation well and without complication. She was admitted post-operatively for observation and management. The patient's hospital course was uncomplicated and she was deemed stable for dischargeto home on post- operative day three. POD#0 pt transferred to floor, [...] on cipro for 5 days for UTI Condition at Discharge: Stable Important Studies and Lab Data: Labs: Recent Results (from the past 24 hour(s)) BASIC METABOLIC PANEL (NON-FASTING) Result Value Ref Range Glucose Lvl 106 65 - 199 mg/dL BUN 11 8 - 18 mg/dL Creatinine 0.51 (*) 0.70 - 1.20 mg/dL Sodium 137 135 - 145 mmol/L Potassium 3.7 3.5 - 5.0 mmol/L Chloride 100 98 - 107 mmol/L CO2 25 22 - 31 mmol/L Anion Gap 12 5 - 15 mmol/L Calcium 9.1 8.5 - 10.5 mg/dL Estimated GFR >60 >=60 Exam: Temp: [36.4 ??C (97.5 ??F)-36.8 ??C (98.2 ??F)] Heart Rate: [74-85] Resp: [16-18] BP: (108-129)/(60-72) SpO2: [97 %-99 %] I/O last 3 completed shifts: In: 1820 [P.O.:1820] Out: 3100 [Urine:2600; Stool:500] Gen: NAD, resting in bed CV: RRR Pulm: clear b/l GI: soft, appropriately tender, non-distended, incision c/d/i MSK: no edema, +2 pulses b/l Discharge to: home Discharge Conditions/Prognosis: Stable Discharge Medications: Your Medications Notice Some of the medications listed here do not show instructions, such as how often to take the medication. Ask your doctor or nurse how to use these medications. Specifically ask about this and similar medications: multivitamin (DAILY MULTIPLE) tablet UNREVIEWED medications - Discuss With Your Provider Dose Details acetaminophen 500 mg Tab Commonly known as: TYLENOL Take 500-1,000 mg by mouth every 6 hours as needed for Pain. 500-1000 mg Refills: 0 amitriptyline 50 mg Tab Commonly known as: ELAVIL Take 1 tablet by mouth nightly. 50 mg Quantity: 30 tablet Refills: 2 cyanocobalamin (vitamin B-12) 1,000 mcg/mL Soln every 30 days. Refills: 0 DAILY MULTIPLE Tab Generic drug: multivitamin Refills: 0 desonide 0.05 % Lotn Commonly known as: DESOWEN Prn Refills: 0 dicyclomine 10 mg Cap Commonly known as: BENTYL Take 1 capsule by mouth every 6 hours as needed. 10 mg Quantity: 90 capsule Refills: 6 omeprazole 20 mg Cpdr Commonly known as: PriLOSEC Take 1 capsule by mouth daily. 20 mg Quantity: 30 capsule Refills: 6 traMADol 50 mg Tab Commonly known as: ULTRAM take 1-2 tablets by mouth every 8 hours if needed for pain Quantity: 180 tablet Refills: 5 Updated Allergies/ADRs: Allergies Allergen Reactions ??? Sulfa (Sulfonamide Antibiotics) Shortness Of Breath SHORTNESS OF BREATH, RASH ??? Valdecoxib Rash Diffuse rash PCP: ALFREDO SMITH MD Scheduled Appointments: Future Appointments Date Time Provider Department [place] 03/02/2015 10:00 AM NURSE, GENERAL SURGERY [facility] 03/24/2015 1:00 PM RESIDENT, SURGICAL ONCOLOGY [facility] 05/10/2015 9:15 AM Hesham Dwyer MD [facility] Instructions Given to Patient at Discharge:. An After Visit Summary was printed and given to the patient. Patient Instructions [facility] - Department of General Surgery Patient Discharge Instructions What to Expect Following Surgery: Swelling and/or bruising under and around the incision is normal. It is usually greatest on the second or third day following surgery. Your scar will be most visible for 1-2 months following your operation and will gradually fade. As it heals, a scar looks more pink or red than the skin around it. Youmay feel a ???healing ridge?? directly under the incision. This is normal and will go away when healing is complete. The skin just above and below your incision will feel numb. This will improve over several months but some patients may have long-term decrease in sensation over these areas. Prescriptions: Please review the medication summary on your discharge instructions Pain Medication: ??? You have been prescribed narcotic pain medications to control your discomfort after surgery. Please wean/decrease your use of these medications over time as you can tolerate. ??? DO NOT use alcohol, drive, or operate heavy or complex machinery while taking these medications. ??? Narcotic pain medications may cause constipation. Stool softeners, such as Colace; mild laxatives, such as Milk of Magnesia, Sennakot, or Ducolax tabs; or enemas may be used if needed and are oube-rnp-cfqxsls (OTC) medications available at most local pharmacies. Prunes or prune juice, taken daily,can also be helpful for constipation treatment or prevention and are available at most supermarkets. Driving Restrictions: ??? No driving if you are too sore from surgery to enter or exit your vehicle comfortably, or if youare too sore to easily check your blind spot. No driving while using prescription pain medications Activities: ??? You may return to being active as tolerated. Take it easy for two weeks. Remember, If it hurts,don't do it. ??? Take several slow, short walks each day for the first two weeks, and gradually increase your distance. We recommend at least 4 times a day. ??? No heavy lifting. You may lift what is comfortable to lift with one arm. Nothing greater than 15pounds until re-evaluated by your physician. Diet: ??? It is important to eat a well-balanced diet to improve wound healing. Fresh fruits, vegetables and fiber-containing foods are recommended. ??? Please avoid fiber in your diet for two weeks. Avoid food including fresh vegtables and leafy greens, high fiber fruits (pineapple, apples, etc), and high fiber grains. Wound Care: ??? You can shower per usual routine and wash the incision area gently. Pat incision dry with a clean, dry towel. ??? Do not submerge the wound under water (avoid spas, pools and bathtubs) until it is fully healed. ??? Do not use creams, oils, or ointments on the wound. ??? Keep the wound open to air if it is not draining. ??? You have gregorio closing your wound that will need to be removed approximately 2 weeks from the date of the operation. When to call: Signs of possible wound infection ?? Increasing redness or swelling of the incision (some mild redness around the incision and/or gregorio is normal) ?? Drainage or bleeding from the incision ?? Fever over 101.5 F ?? Increased pain or discomfort at the incision site Signs of possible bowel obstruction and/or dehydration ?? Persistent nausea and/or vomiting or the inability to keep foods or fluids down in a 24 hour period. ?? Dry mouth, dark concentrated urine or lack of urine, lightheadedness/flu-like symptoms Other ?? Any other concerning sign or symptom such as shortness or breath, chest pain, pain with urinationor other signs of urinary tract infection (UTI), or new leg pain/swelling, nausea/vomiting, increasing abdominal pain, abdominal firmness, bloody stools, or if you completely stop passing gas or stool. Who to Call Main appointment line: [phone] Daytime triage line for questions/concerns: [phone] After hours (nights/weekends/holidays) for urgent questions/concerns: [phone] (ask for the general surgery resident to be paged). Follow-up Appointments: A Follow-up appointment will be scheduled with the General Surgery Outpatient Clinic - [address] in 2-4 weeks. You will receive a letter in the mail and/or a phone call with information about this appointment. Please call [phone] (clinic number for appointments) to confirm date and time of your appointment, or if you do not receive information about your appointment in a timely manner. Future Appointments Date Time Provider Department Center 03/02/2015 10:00 AM NURSE, GENERAL SURGERY [facility] 03/24/2015 1:00 PM RESIDENT, SURGICAL ONCOLOGY [facility] 05/10/2015 9:15 AM Hesham Dwyer MD [facility] Department of General Surgery ??? [facility] ??? [address] ???[place] [address] ??? [phone] ~~~~~~~~~~~~~~~~~~~~~~~~~~~~~~~~~~~~~~~~~~~~~~~~~~~~~~~~~~~~~~~~~~~ Signed: Kiki Ferreira MD 02/23/2015 documented in this encounter Discharge Instructions Patient InstructionsKiki Ferreira MD - 02/19/2015 2:02 PM EDT [facility] - Department of General Surgery Patient Discharge Instructions What to Expect Following Surgery: Swelling and/or bruising under and around the incision is normal. It is usually greatest on the second or third day following surgery. Your scar will be most visible for 1-2 months following your operation and will gradually fade. As it heals, a scar looks more pink or red than the skin around it. Youmay feel a ???healing ridge?? directly under the incision. This is normal and will go away when healing is complete. The skin just above and below your incision will feel numb. This will improve over several months but some patients may have long-term decrease in sensation over these areas. Prescriptions: Please review the medication summary on your discharge instructions Pain Medication: ??? You have been prescribed narcotic pain medications to control your discomfort after surgery. Please wean/decrease your use of these medications over time as you can tolerate. ??? DO NOT use alcohol, drive, or operate heavy or complex machinery while taking these medications. ??? Narcotic pain medications may cause constipation. Stool softeners, such as Colace; mild laxatives, such as Milk of Magnesia, Sennakot, or Ducolax tabs; or enemas may be used if needed and are yyle-jol-yxxncjo (OTC) medications available at most local pharmacies. Prunes or prune juice, taken daily,can also be helpful for constipation treatment or prevention and are available at most [email or web address]. Driving Restrictions: ??? No driving if you are too sore from surgery to enter or exit your vehicle comfortably, or if youare too sore to easily check your blind spot. No driving while using prescription pain medications Activities: ??? You may return to being active as tolerated. Take it easy for two weeks. Remember, If it hurts,don't do it. ??? Take several slow, short walks each day for the first two weeks, and gradually increase your distance. We recommend at least 4 times a day. ??? No heavy lifting. You may lift what is comfortable to lift with one arm. Nothing greater than 15pounds until re-evaluated by your physician. Diet: ??? It is important to eat a well-balanced diet to improve wound healing. Fresh fruits, vegetables and fiber-containing foods are recommended. ??? Please avoid fiber in your diet for two weeks. Avoid food including fresh vegtables and leafy greens, high fiber fruits (pineapple, apples, etc), and high fiber grains. Wound Care: ??? You can shower per usual routine and wash the incision area gently. Pat incision dry with a clean, dry towel. ??? Do not submerge the wound under water (avoid spas, pools and bathtubs) until it is fully healed. ??? Do not use creams, oils, or ointments on the wound. ??? Keep the wound open to air if it is not draining. ??? You have gregorio closing your wound that will need to be removed approximately 2 weeks from the date of the operation. When to call: Signs of possible wound infection ?? Increasing redness or swelling of the incision (some mild redness around the incision and/or gregorio is normal) ?? Drainage or bleeding from the incision ?? Fever over 101.5 F ?? Increased pain or discomfort at the incision site Signs of possible bowel obstruction and/or dehydration ?? Persistent nausea and/or vomiting or the inability to keep foods or fluids down in a 24 hour period. ?? Dry mouth, dark concentrated urine or lack of urine, lightheadedness/flu-like symptoms Other ?? Any other concerning sign or symptom such as shortness or breath, chest pain, pain with urinationor other signs of urinary tract infection (UTI), or new leg pain/swelling, nausea/vomiting, increasing abdominal pain, abdominal firmness, bloody stools, or if you completely stop passing gas or stool. Who to Call Main appointment line: [phone] Daytime triage line for questions/concerns: [phone] After hours (nights/weekends/holidays) for urgent questions/concerns: [phone] (ask for the general surgery resident to be paged). Follow-up Appointments: A Follow-up appointment will be scheduled with the General Surgery Outpatient Clinic - [address] in 2-4 weeks. You will receive a letter in the mail and/or a phone call with information about this appointment. Please call [phone] (clinic number for appointments) to confirm date and time of your appointment, or if you do not receive information about your appointment in a timely manner. Future Appointments Date Time Provider Department Center 03/02/2015 10:00 AM NURSE, GENERAL SURGERY [facility] 03/24/2015 1:00 PM RESIDENT, SURGICAL ONCOLOGY [facility] 05/10/2015 9:15 AM Hesham Dwyer MD [facility] Department of General Surgery ??? [facility] ??? [address] ???[place] [address] ??? [phone] ~~~~~~~~~~~~~~~~~~~~~~~~~~~~~~~~~~~~~~~~~~~~~~~~~~~~~~~~~~~~~~~~~~~ documented in this encounter Medications at Time of Discharge Medication Sig Dispensed Refills Start Date End Date desonide (DESOWEN) 0.05 % Prn 0 05/04/2014 Lotion cyanocobalamin, vitamin every 30 days. 0 06/20/20 14 B-12, 1,000 mcg/mL Solution ciprofloxacin HCl (CIPRO) Take 1 tablet by 10 tablet 0 07/0 04/201502/28/2015 250 mg Tablet mouth 2 times daily for 5 days. docusate sodium (COLACE) Take 1 capsule by 10 capsule 0 07/0 04/201503/05/2015 100 mg Capsule mouth 2 times daily for 10 days. oxyCODONE (ROXICODONE) 5 mg Take 1 tablet by 120 tablet 0 07 /04/2015 03/24/2015 Tablet mouth every 4 hours as needed for Pain. omeprazole (PRILOSEC) 20 mg Take 1 capsule [...] documented as of this encounter Progress Notes Barb Coronado RN - 02/23/2015 1:37 PM EDT Barb Coronado RN Case Manager pager [phone] Record reviewed. No discharge needs identified at this time. Elementary Reading Tutor remains available as needed for coordination of care and discharge planning. Mona Kebede RN - 02/23/2015 11:30 AM EDT Patient discharged to home with no services. IV removed, site benign. Pt denies CP or SOB. Discussedpain management with patient, pain tolerable. Patient medicated prior to discharge. Patient has all belongings and supplies needed. Discharge instructions and prescriptions were given and reviewed. Patient verbalizes understanding. Patient encouraged to call with questions or concerns. Patient left floor with family. Kiki Ferreira MD - 02/23/2015 5:15 AM EDT INPATIENT DAILY PROGRESS NOTE Patient Name: Ashley Da Silva Patient Age: 64 y.o. Birthdate: 1950 Admit date: 02/18/2015 Attending Physician: Sadie Duff MD ID: Ashley Da Silva is a 64 y.o. female POD#5 s/p exploratory laparotomy for bowel obstruction with peritonitis in setting of prior RYGB POD#0 pt transferred to floor, stable POD#1 no events, pain controlled with IV dilaudid and ativan for muscle spasms, sips and chips diet POD#2 catheter removed, diet advanced as ana, passing gas, no BM, K of 2.9 replaced POD#3 - no events, waiting on bowel function return POD#4- no events, waiting on bowel function return 24hr events: No events Subjective: Pain is controlled. no n/v. Pt having flatus and BM. No cp/sob. Muscle spasms have resolved. O: Last value Range last 24hrs Temperature Temp: 36.8 ??C (98.2 ??F) Temp: [36.4 ??C (97.5 ??F)-36.8 ??C (98.2 ??F)] Heart Rate Heart Rate: 75 Heart Rate: [74-85] Blood Pressure BP: 123/69 mmHg BP: (108-147)/(60-88) Respiratory Rate Resp: 16 Resp: [16-18] SpO2 SpO2: 99 % SpO2: [97 %-99 %] 02/22 0701 - 02/23 0700 In: 1400 [P.O.:1400] Out: 1700 [Urine:1200] Regular diet Physical Exam: Gen: NAD, resting in bed CV: RRR Pulm: clear b/l GI: soft, appropriately tender, non-distended, incision c/d/i MSK: no edema, +2 pulses b/l Recent Labs 02/20/15 0858 WBC 9.4 HGB 12.2 HCT 37.5 PLATELET 208 Recent Labs 02/21/15 0830 02/20/15 2255 02/20/15 0858 NA 140 -- 139 K 4.7 3.4* 2.9* CL 102 -- 102 CO2 24 -- 26 BUN 3* -- 7* CREATININE 0.49* -- 0.44* GLUCOSE 151 -- 96 CALCIUM 9.2 -- 8.0* MAGNESIUM 0.94 0.84 0.68* ASSESSMENT: Ashley Da Silva is a 64 y.o. female POD#3 s/p exploratory laparotomy for bowel obstruction with peritonitis in setting of prior RYGB. Progressing well postoperatively. Pain is well controlled and pt is stable. Discharge home today. Cleared for discharge to home by PT. PLAN Neuro pain controlled with oxycodone, ativan PRN for spams CV stable, continue to monitor Pulm stable, encourage IS and ambulation GI abd exam stable, ana reg diet will monitor UOP, Urine cx shows GNR - treating with cipro FEK hep locked IV ID afebrile, on cipro for UTI Heme stable, no issues Endo no issues PPX SQH, SCDs, PPI. DISPO: Stable on floor. Code status: FULL Kiki Ferreira MD Pgr. [id number] Areli Tate RN - 02/22/2015 9:41 PM EDT 2137-Pt c/o 'feels like my heart is beating out of my chest and it hurts under my left breast sometimes, maybe it's gas but I wanted to let you know'. VSSStacy BENZ notified. Dominique Stanley RD - 02/22/2015 2:20 PM EDT Nutrition Initial Note: S: Per pt: Positive, feels better today, not a big eater normally Appetite: Fair Chewing/Swallowing: no issues per patient despite lack of teeth N/V: no issues noted O: Patient Active Problem List Diagnosis Code ??? [...] Abdominal pain, RUQ (right upper quadrant) 789.01 ??? SBO (small bowel obstruction) 560.9 Past Medical History Diagnosis Date ??? Chronic back pain ??? Chronic hip pain Right ??? Arthritis ??? B12 deficiency Diet: Regular Height: 157.5 cm Admit Weight: 61.7 kg (136 lbs) BMI: 24.9 Labs: (02/21) BUN 3, Cr 0.49 Medications: Cipro, Colace, Miralax, Mg-sulfate, KCl A: Patient seen for admission diagnosis of bowel obstruction and is now s/p ex lap for probable strangulated internal hernia. Per patient she has yet to have a BM, but has passed a lot of gas and can feel pressure from her bowels like she will be able to go soon. She denies any discomfort with eating.She reports that she is not normally a big eater and that she has eaten more here than she ever does at home. When asked what she had eaten today she states a couple bites of a turkey sandwich, a couple spoonfuls of soup, and sherbert. Discussed nutrition supplements and patient would like to try strawberry Boost with ice. Will provide these. No further questions at this time. P: Continue current diet as tolerated. Monitor and encourage PO intake as tolerated. Monitor BM's. Monitor weights. Boost Plus TID (straw) Nutrition to follow weekly unless consulted sooner. Kayden Carlin PT - 02/22/2015 12:04 PM EDT Physical Therapy Treatment Note Visit # 2 Patient Dx: 64 y.o. 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 Supine<>sit indep; reminded of log roll technique to avoid straining abdomen ?? Sit<>stand indep ?? Amb 150 ft using no device with standby assist, steadily--had a few moments of sway but no loss of balance that needed assist or stepping reaction to correct ?? Stairs: Negotiated full flight of stairs, normal reciprocal stepping, one hand on rail, no difficulty ?? Sats WNL on room air, HR 80s Pain: tolerable Education: Education topics included role of PT, dispo planning. Pt verbalized/demonstrated understanding. Staff Communication: Patient status, treatment, and mobility recommendations discussed with nursing/other staff. A: Pt tolerated PT well. Presents with pain and decreased activity tolerance. Doing better today. Ptwill benefit from ongoing therapeutic interventions to achieve pt's and therapy goals. Patient has achieved physical therapy goals sufficiently for safe d/c to home. Physical Therapy Goals: 1. Pt. to demonstrate knowledge of precautions during functional activities. 2. Pt. to perform bed mobility and supine<>sit transfers indep. 3. Pt. to perform sit<>stand transfers indep. 4. Pt. to ambulate 150 feet indep. 5. Pt to negotiate flight of steps with rail, using rail and supervision. P: D/C inpt PT; no further PT or equipment needs at this time. Total time spent with patient: 15 minutes Total timed interventions: 15 minutes functional mobility Pager: [phone] Kayden Carlin, PT Physical Therapy Rehabilitation Department Areli Tate RN - 02/21/2015 6:48 PM EDT TELE note: S: No c/o chest pain, sob, or n/v O: Please see tele strips in chart A: Rare PVCs, pt tolerating rate and rhythm P: Continue pt on tele monitoring Kiki Ferreira MD - 02/21/2015 7:34 AM EDT INPATIENT DAILY PROGRESS NOTE Patient Name: Ashley Da Silva Patient Age: 64 y.o. Birthdate: 1950 Admit date: 02/18/2015 Attending Physician: Sadie Duff MD ID: Ashley Da Silva is a 64 y.o. female POD#3 s/p exploratory laparotomy for bowel obstruction with peritonitis in setting of prior RYGB POD#0 pt transferred to floor, stable POD#1 no events, pain controlled with IV dilaudid and ativan for muscle spasms, sips and chips diet POD#2 catheter removed, diet advanced as ana, passing gas, no BM, K of 2.9 replaced 24hr events: No events Subjective: Pain is controlled. no n/v. No flatus but no BM. Pt reports having some incontinence - we will f/u with a UA. No cp/sob. Muscle spasms have resolved. O: Last value Range last 24hrs Temperature Temp: 36.7 ??C (98.1 ??F) Temp: [36.6 ??C (97.9 ??F)-36.8 ??C (98.2 ??F)] Heart Rate Heart Rate: 75 Heart Rate: [75-91] Blood Pressure BP: 158/83 mmHg BP: (143-158)/(63-89) Respiratory Rate Resp: 16 Resp: [16] SpO2 SpO2: 100 % SpO2: [99 %-100 %] 02/20 0701 - 02/21 0700 In: 4036 [P.O.:765; I.V.:2471] Out: 3950 [Urine:3950] Full Liquid Physical Exam: Gen: NAD, resting in bed CV: RRR Pulm: clear b/l GI: soft, appropriately tender, non-distended, incision c/d/i MSK: no edema, +2 pulses b/l Recent Labs 02/20/15 0858 02/18/152029 WBC 9.4 10.3* HGB 12.2 12.9 HCT 37.5 39.0 PLATELET 208 237 PT -- 13.9 INR -- 1.0 PTT -- 26 Recent Labs 02/20/15 2255 02/20/15 0858 02/18/152029 NA -- 139 139 K 3.4* 2.9* 3.7 CL -- 102 100 CO2 -- 26 26 BUN -- 7* 5* CREATININE -- 0.44* 0.67* GLUCOSE -- 96 123 CALCIUM -- 8.0* 9.0 MAGNESIUM 0.84 0.68* 0.78 PHOS -- -- 3.4 ASSESSMENT: Ashley Da Silva is a 64 y.o. female POD#3 s/p exploratory laparotomy for bowel obstruction with peritonitis in setting of prior RYGB. Progressing well postoperatively. Pain is well controlled and pt is stable. PT/OT to evaluate today. Likely discharge home tomorrow. PLAN Neuro pain controlled with IV dilaudid, ativan PRN for spams - will transition to oral pain medication this PM if pt ana diet CV stable, continue to monitor Pulm stable, encourage IS and ambulation GI abd exam stable, advancing diet as ana will monitor UOP, UA pending FEK MIVF ID afebrile, on zosyn Heme stable, no issues Endo no issues PPX SQH, SCDs, PPI. DISPO: Stable on floor. Code status: FULL Kiki Ferreira MD Pgr. [id number] Barb Beebe RN - 02/20/2015 9:38 AM EDT Office of Care Management (OCM) / Elementary Reading Tutor(CM)/ Initial Assessment Barb Coronado RN Case Manager pager [phone] Reviewed record and interviewed patient. Introduced/reviewed CM role and services accepted. 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 Has another daughter and son in the area. She states her family is very supportive to her. ADVANCE DIRECTIVES: None on file HEALTH /PRESCRIPTION COVERAGE:[place] [facility] CURRENT HOME/COMMUNITY SERVICES/EQUIPMENT: None RISK ADJUSTMENT SPECIALIST REFERRAL: None ID at this time PRIMARY CARE PHYSICIAN: ALFREDO SMITH MD [address] / [facility] [id number] POTENTIAL DISCHARGE NEEDS: None ID at present will wait for hospital course to evolve PATIENT/FAMILY EDUCATION NEEDS: Continue to monitor and update as hospital course evolves. ANTICIPATED BARRIERS TO DISCHARGE: None ID TRANSPORTATION @ D/C: Family PLAN: CM will continue to monitor progress, follow for continuity of care and assist with discharge planning while hospitalized . David Page RN - 02/19/2015 8:11 PM EDT Tele note: S: pt denied any CP or SOB during this shift. Pt consistent with describing lower abdominal pain with relief from INVESTMENT ACCOUNTING CLERK use. O: Order for tele monitoring provided after 02/18 procedure prior to return to floor. A: Pt with SR during day shift with occasional PVCs per telephone assembler strips. P: Continued tele monitoring per MD order. No events reported by telephone assembler during this shift. BP 142/76 Pulse 81 Temp(Src) 36.5 ??C (97.7 ??F) (Oral) Resp 18 SpO2 95% Kiki Ferreira MD - 02/19/2015 2:14 PM EDT INPATIENT DAILY PROGRESS NOTE Patient Name: Ashley Da Silva Patient Age: 64 y.o. Birthdate: 1950 Admit date: 02/18/2015 Attending Physician: Sadie Duff MD ID: Ashley Da Silva is a 64 y.o. female POD#2 s/p exploratory laparotomy for bowel obstruction with peritonitis in setting of prior RYGB 24hr events: POD#0 pt transferred to floor, stable POD#1 no events, pain controlled with IV dilaudid and ativan for muscle spasms, sips and chips diet Subjective: Pain is controlled. no n/v. No flatus/BM. Catheter in place this AM. No cp/sob. Muscle spasms have resolved. No complaints this AM O: Last value Range last 24hrs Temperature Temp: 36.7 ??C (98.1 ??F) Temp: [36.2 ??C (97.2 ??F)-37.6 ??C (99.7 ??F)] Heart Rate Heart Rate: 103 Heart Rate: [61-103] Blood Pressure BP: 140/87 mmHg BP: (140-175)/(58-87) Respiratory Rate Resp: 18 Resp: [12-18] SpO2 SpO2: 98 % SpO2: [98 %-100 %] 02/18 701 - 02/19 07 In: 2137.6 [I.V.:2137.6] Out: 2024 [Urine:1975] Sips and Chips (Give Meds) Physical Exam: Gen: NAD, resting in bed CV: RRR Pulm: clear b/l GI: soft, appropriately tender, non-distended, incision c/d/i MSK: no edema, +2 pulses b/l Recent Labs 02/18/152029 WBC 10.3* HGB 12.9 HCT 39.0 PLATELET 237 PT 13.9 INR 1.0 PTT 26 Recent Labs 02/18/152029 NA 139 K 3.7 CL 100 CO2 26 BUN 5* CREATININE 0.67* GLUCOSE 123 CALCIUM 9.0 MAGNESIUM 0.78 PHOS 3.4 ASSESSMENT: Ashley Da Silva is a 64 y.o. female POD#2 s/p exploratory laparotomy for bowel obstruction with peritonitis in setting of prior RYGB. Progressing well postoperatively. Pain is well controlled and pt is stable. PLAN Neuro pain controlled with IV dilaudid, ativan PRN for spams CV stable, continue to monitor Pulm stable, encourage IS and ambulation GI abd exam stable, advancing diet to clear liquids today dc raines today, will monitor UOP FEK transition to MIVF today ID afebrile, on zosyn Heme stable, no issues Endo no issues PPX SQH, SCDs, PPI. DISPO: Stable on floor. Code status: FULL Kiki Ferreira MD Pgr. [id number] Kiki Ferreira MD - 02/19/2015 8:26 AM EDT INPATIENT DAILY PROGRESS NOTE Patient Name: Ashley Da Silva Patient Age: 64 y.o. Birthdate: 1950 Admit date: 02/18/2015 Attending Physician: Sadie Duff MD ID: Ashley Da Silva is a 64 y.o. female POD#1 s/p exploratory laparotomy for bowel obstruction with peritonitis in setting of prior RYGB 24hr events: OR last night Subjective: Pain is controlled. no n/v. No flatus/BM. Catheter in place. No cp/sob. Pt complains of muscle spasms. O: Last value Range last 24hrs Temperature Temp: 37.4 ??C (99.3 ??F) Temp: [36.2 ??C (97.2 ??F)-37.6 ??C (99.7 ??F)] Heart Rate Heart Rate: 86 Heart Rate: [61-86] Blood Pressure BP: 150/75 mmHg BP: (143-175)/(58-83) Respiratory Rate Resp: 18 Resp: [12-18] SpO2 SpO2: 100 % SpO2: [98 %-100 %] 02/18 0701 - 02/19 0700 In: 2136.6 [I.V.:7.6] Out: 2024 [Urine:1974] Sips and Chips (Give Meds) Physical Exam: Gen: NAD, resting in bed CV: RRR Pulm: clear b/l GI: soft, appropriately tender, non-distended, incision c/d/i MSK: no edema, +2 pulses b/l Recent Labs 02/18/152029 WBC 10.3* HGB 12.9 HCT 39.0 PLATELET 237 PT 13.9 INR 1.0 PTT 26 Recent Labs 02/18/152029 NA 139 K 3.7 CL 100 CO2 26 BUN 5* CREATININE 0.67* GLUCOSE 123 CALCIUM 9.0 MAGNESIUM 0.78 PHOS 3.4 ASSESSMENT: Ashley Da Silva is a 64 y.o. female POD#1 s/p exploratory laparotomy for bowel obstruction with peritonitis in setting of prior RYGB. Progressing well postoperatively. Pain is well controlled and pt is stable. PLAN Neuro pain controlled with IV dilaudid, ativan PRN for spams CV stable, continue to monitor Pulm stable, encourage IS and ambulation GI abd stable, cont sips and chips diet raines in place, will dc tomorrow FEK LR 100cc/hr ID afebrile, on zosyn Heme CBC in AM Endo no issues PPX SQH, SCDs, PPI. DISPO: Stable on floor. Code status: FULL Kiki Ferreira MD Pgr. [id number] Chiquita Deluna RN - 02/19/2015 12:52 AM EDT Pt received into pacu station 22 following expl lap, ANA LILIA. Placed on monitor with alarms active and audible and with appropriate settings. VSS. Will continue to monitor per pacu protocol. Pt stating 10/10 sharp (umbilical) abd discomfort and has required fair amt (3.2 mg total) of prn IVDilaudid. Service called and order received for modification of brake repairer air dosing. Pt using appropriately. Presently down to her baseline preop vital signs and appears much more comfortable. Report to SIENA Wilson prior to transfer, on tele, to [facility]. Katie Maravilla RN - 02/18/2015 11:05 PM EDT 2121 - Pt taken to the OR by Dr. Duff. 500cc of 2000cc LR fluid bolus given, and zosyn not given (not up from pharmacy). Dr. Duff aware. Pt's family aware of OR, and they have spoken with Dr. Duff. documented in this encounter H&P Notes Marisol Adams MD - 02/18/2015 9:04 PM EDT [facility] Department of General Surgery Inpatient Admission Note CC: abdominal pain HPI: 64F with history of arthritis, chronic back pain, [id number]-[id number] with unknown reason known to patient several years ago, presents with suddent onsent 1 day history diffuse abdominal pain with associated nausea and emesis x1 at outside facility. The pain is 10/10, crampy in nature, worse with movement,radiating throughout the abdomen, has not had a similar pain in the past, no previous known bowel obstructions. CT from outside facility demonstrated SBO with transition point at area of volvulus in the LLQ and mid-abdominal fat containing hernia. Denies shortness of breath and chest pain. Of note EGD 11/2014 demonstrated widely patent Schatzke ring and EUS without evidence of ampullary mass, performed for observed CBD dilatation. PM/SH: Past Medical History Diagnosis Date ??? Chronic back pain ??? Chronic hip pain Right ??? Arthritis ??? B12 deficiency Past Surgical History Procedure Laterality Date ??? Hysterectomy, total abdominal ??? Cholecystectomy 2008 ??? Gastrectomy 1993 ??? Tonsillectomy ??? Upper gi endoscopy, diagnostic N/A 11/17/2014 EGD, UPPER GI ENDOSCOPY performed by Virginia Macdonald MD at [facility] ENDOSCOPY ??? Upper gi endoscopy, biopsy N/A 11/17/2014 UPPER GASTROINTESTINAL ENDOSCOPY,WITH BIOPSY SINGLE OR MULTIPLE performed by Virginia Macdonald MD at [facility] ENDOSCOPY ??? Endoscopic us exam, esoph N/A 12/23/2014 UPPER EUS- ENDOSCOPIC ULTRASOUND performed by Mehran Ogden MD at [facility] ENDOSCOPY ??? Small bowel endoscopy, past 2nd duod N/A 12/23/2014 ENDOSCOPY, ENTEROSCOPY, SMALL INTESTINE performed by Mehran Ogden MD at [facility] ENDOSCOPY ALL: Allergies Allergen Reactions ??? Sulfa (Sulfonamide Antibiotics) Shortness Of Breath SHORTNESS OF BREATH, RASH ??? Valdecoxib Rash Diffuse rash MED: No current facility-administered medications on file prior to encounter. Current Outpatient Prescriptions on File Prior to Encounter Medication Sig Dispense Refill ??? acetaminophen (TYLENOL) 500 mg Tablet Take [...] mcg/mL Solution every 30 days. 0 ??? traMADol (ULTRAM) 50 mg Tablet take 1-2 tablets by mouth every 8 hours if needed for pain 180 tablet 5 ??? amitriptyline (ELAVIL) 50 mg Tablet Take 1 tablet by mouth nightly. 30 tablet 2 ??? multivitamin (DAILY MULTIPLE) tablet Social history: History Social History ??? Marital Status: Spouse Name: N/A Number of Children: N/A ??? Years of Education: N/A Occupational History ??? Not on file. Social History Main Topics ??? Smoking status: Never Smoker ??? Smokeless tobacco: Never Used ??? Alcohol Use: No ??? Drug Use: No ??? Sexual Activity: Not on file Other Topics Concern ??? Not on file Social History Narrative Family history: ROS: As stated above, otherwise remainder of 10-point system review is negative Physical Exam: Temp: [37.2 ??C (99 ??F)-37.6 ??C (99.7 ??F)] Heart Rate: [65-75] Resp: [18] BP: (148-150)/(58-73) SpO2: [98 %] Gen: appears to be in discomfort secondary to abd pain Neuro: CGS 15, sensation/motor intact CV: RRR Pulm: clear b/l GI: diffusely tender to light palpation, +rebound, voluntary guarding, healed midline scar MSK: no edema, +2 pulses b/l Recent Results (from the past 24 hour(s)) LACTATE, WHOLE BLOOD, SEND TO LAB Result Value Ref Range Lactate WB 1.7 0.5 - 2.2 mmol/L HEMOGRAM Result Value Ref Range WBC 10.3 (*) 4.0 - 10.0 x10(3)/mcL RBC 4.46 3.93 - 5.22 x10(6)/mcL Hemoglobin 12.9 11.2 - 15.7 gm/dL Hematocrit 39.0 34.0 - 45.0 % MCV 87.4 79.0 - 94.0 fL MCH 28.9 26.6 - 32.2 pg MCHC 33.1 32.0 - 36.5 gm/dL Platelets 237 145 - 370 x10(3)/mcL RDWSD 44.0 35.0 - 46.0 fL RDWCV 13.9 10.9 - 14.4 % MPV 9.2 9.0 - 12.0 fL DIFFERENTIAL, AUTOMATED Result Value Ref Range Neutrophils % 77.4 Neutr Abs (ANC) 7.96 (*) 1.50 - 6.30 x10(3)/mcL Lymphocytes % 16.9 Lymphocytes Abs 1.7 1.0 - 3.6 x10(3)/mcL Monocytes % 5.4 Monocyte Abs 0.6 0.2 - 1.0 x10(3)/mcL Eosinophils % 0.1 Eosinophils Abs 0.0 0.0 - 0.5 x10(3)/mcL Basophils % 0.1 Basophils Abs 0.0 0.0 - 0.2 x10(3)/mcL Immature Gran % 0.10 Linda Gran Abs 0.01 0.00 - 0.05 x10(3)/mcL Assessment and Plan: 64F with acute abdomen secondary to small bowel volvulus Neuro: dilaudid INVESTMENT ACCOUNTING CLERK for pain CV: monitor hemodynamics for hypotension Pulm: IS, monitor resp status GI/FEN: NPO, IVF, monitor lactic acid, ensure adequate resuscitation, replace electrolytes as needed, monitor UOP Heme/ID: zosyn Proph: SCDs, subcutaneous Heparin Dispo: OR for emergent ex lap, consent is signed and in the chart, all questions addressed and patient aware of risks and complications Marisol Adams MD [id number] Sadie Duff MD - 02/18/2015 8:53 PM EDT Mrs. Da Silva is a 64 year old woman from [place] who was in her usual state of relatively good health until yesterday when I developed sudden pain in my stomach. Came on at 10:30 when I was trying to take a nap. Got worse as the day wore on. I started feeling nauseated and threw up by the time I got to the [facility]. I had a fever too. They put a nose tube down and that helped initially but I just kept getting worse. Then the pain went to my back. No history of this type of pain before. No history of pancreatitis. She does not smoke or drink. 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 History of RYGB by Dr. Mckee for morbid obesity. Open. Retrocolic RY reconstruction per OP note in [facility]. ROS: No history of CP, or heart attack, no h/o stroke or prior blood clots. She is not a diabetic. Allergies: She has an allergy to sulfa drugs -my wind pipe closes up O: AFVSS She is comfortable as long as she doesn't move. On RA. NG in place with some bilious output. I flushed the NG and seems to be sumping nicely. Chest is clear bilaterally Heat is RRR. I don't hear a murmur. Abdomen is soft, not distended but diffusely tender with diffuse peritonitis- rebound and percussiontenderness Rectal exam not performed LE without edema A/P: I explained that I am concerned that she has an SBO with compromised small bowel. She has peritonitis and needs an emergent laparotomy. Informed consent obtained. I booked it as a A case given concern for ongoing ischemia. 2L bolus of LR written for. She has two good peripheral IV's. Zosyn 4.5 g iv q 6 - first dose STAT. Labs including type and screen drawn and pending. Rosemary Duff MD 02/18/2015 9:06 PM documented in this encounter Miscellaneous Notes Plan of Care - Connie Victor RN - 02/23/2015 8:14 AM EDT Problem: General Plan of Care Goal: Plan of Care Review Outcome: Ongoing (Interventions Implemented as Appropriate) 02/23/15 0810 Plan of Care Review Plan of Care Outcome Status ongoing (interventions implemented as appropriate) Progress improving Coping/Psychosocial Response Interventions Plan of Care Reviewed with patient OUTCOME EVALUATION NOTE: OUTCOME SUMMARY: Ashley had 5-8/10 pain on her abdomen that was well-controlled with PRN Oxycodone 5-10mg PO and scheduled Tylenol 975mg PO. No more episodes of chest discomfort reported since after the episode at 2138. PLAN MOVING FORWARD: Continue Cipro as ordered for UTI. Ambulation in the hallway. INDIVIDUALIZED FALL PREVENTION: Assistance: none Supervision: Pt is independent Surveillance: luciana Muniz rounding CPG GOAL OUTCOME EVALUATION: Plan of Care - Areli Tate RN - 02/22/2015 5:04 PM EDT Problem: General Plan of Care Goal: Plan of Care Review Outcome: Ongoing (Interventions Implemented as Appropriate) 02/22/15 1700 Plan of Care Review Plan of Care Outcome Status ongoing (interventions implemented as appropriate) Progress progress toward functional goals as expected Coping/Psychosocial Response Interventions Plan of Care Reviewed with patient OUTCOME EVALUATION NOTE: OUTCOME SUMMARY: Ashley is passing flatus, but has not had a BM. PRN Dulcolax given and lactulose. Ambulation and hydration promoted. Cipro started for UTI. 10 mg oxycodone given Q 4 hours for 7-8/10 pain. Tylenol scheduled. PLAN MOVING FORWARD: Continue adequate pain control. Continue to encourage ambulation and hydration. INDIVIDUALIZED FALL PREVENTION: Assistance: none Supervision: none Surveillance: Hourly rounding, call antoine in reach CPG OUTCOME EVALUATION: Goal: Individualization and Mutuality Outcome: Ongoing (Interventions Implemented as Appropriate) 02/22/15 1700 Individualization Individualize the Plan of Care: 10 mg oxycodone Q 4 hours; scheduled Tylenol Goal: Fall Prevention-Safe Patient Handling Outcome: Ongoing (Interventions Implemented as Appropriate) 02/20/15 2337 02/22/15 0900 02/22/15 1140 Safety Interventions Safety Precautions/Fall Reduction -- environmental modification;fall reduction program maintained;nonskid shoes/slippers when out of bed -- Musculoskeletal Interventions Activity/Level of Assistance -- -- -- Positioning -- -- independent Muscle Strengthening -- activity/mobility promoted;mobility in bed promoted;personal routines for BADL/IADL promoted;up in chair encouraged for meals and activities -- Self-Care Promotion -- independence encouraged while providing assistance;personal routines for BADL/IADL promoted;personal/BADL objects within reach -- Sy Fall Risk History of Falling -- 0 -- Secondary Diagnosis -- 15 -- Ambulatory Aids -- 0 -- Intravenous Therapy/Heparin/Saline Lock -- 20 -- Gait/Transferring -- 0 -- Mental Status -- 0 -- Score -- 35 -- Activity and Safety Assistive Device Other (iv pole) -- -- OTHER Sy Fall Risk -- Med -- 02/22/15 1553 Safety Interventions Safety Precautions/Fall Reduction -- Musculoskeletal Interventions Activity/Level of Assistance up in encinas;independently Positioning -- Muscle Strengthening -- Self-Care Promotion -- Sy Fall Risk History of Falling -- Secondary Diagnosis -- Ambulatory Aids -- Intravenous Therapy/Heparin/Saline Lock -- Gait/Transferring -- Mental Status -- Score -- Activity and Safety Assistive Device -- OTHER Sy Fall Risk -- Goal: Infection Control Outcome: Ongoing (Interventions Implemented as Appropriate) 02/22/15 0900 Safety Interventions Isolation Precautions standard precautions maintained Infection Prevention bronchial hygiene promoted;environmental surveillance;hydration promoted;nutrition promoted;promote handwashing;rest/sleep promoted Coping/Psychosocial Response Interventions Counseling emotional support provided;reassurance provided Goal: Discharge Needs Assessment Outcome: Ongoing (Interventions Implemented as Appropriate) Problem: Pain, Acute (Adult, Obstetrics) Goal: Identify Signs and Symptoms and Related Risk Factors Signs and symptoms and related risk factors are identified upon initiation of Human Response Clinical Practice Guideline (CPG) Outcome: Ongoing (Interventions Implemented as Appropriate) Goal: Acceptable Pain Control/Comfort Level Patient will demonstrate the desired outcomes. Outcome: Ongoing (Interventions Implemented as Appropriate) 02/22/15 1700 Pain, Acute (Adult, Obstetrics) Acceptable Pain Control/Comfort Level making progress toward outcome Problem: Skin Integrity Impairment, Risk/Actual (Adult, Obstetrics) Goal: Identify Signs and Symptoms and Related Risk Factors Signs and symptoms and related risk factors are identified upon initiation of Human Response Clinical Practice Guideline (CPG) Outcome: Ongoing (Interventions Implemented as Appropriate) 02/22/15 1700 Skin Integrity Impairment, Risk/Actual Treatment Related Related Risk Factors (Skin Integrity Impairment, Risk/Actual) surgery Goal: Skin Integrity/Wound Healing Patient will demonstrate the desired outcomes. Outcome: Ongoing (Interventions Implemented as Appropriate) 02/22/15 1700 Skin Integrity Impairment, Risk/Actual (Adult, Obstetrics) Skin Integrity/Wound Healing making progress toward outcome Med Student Progress Note - Lincoln Yadav - 02/22/2015 8:12 AM EDT Lincoln Yadav, MS4, Pager [phone] MS4 Progress Note - 02/22/2015 Admission Date: 02/18/2015 HD#: 5 ID: Ashley Da Silva is a 64 y.o. female with hx of RYGB for morbid obesity who is POD #4 s/p ex lap for probable strangulated internal hernia Overnight events: - no acute events Subjective: - continues to have urgency and now notes cloudy urine appearance - mentioned oral pain meds wearing off too fast - Pain is controlled - gas but no BM despite dulcolax supp - Tolerating reg diet - ambulating around unit - no N/V Objective: Current 24h Range Temperature Temp: 36.8 ??C (98.2 ??F) Temp: [36.5 ??C (97.7 ??F)-37.3 ??C (99.1 ??F)] Heart Rate Heart Rate: 80 Heart Rate: [80-89] Blood Pressure BP: 147/88 mmHg BP: (132-147)/(73-88) Respiratory Rate Resp: 16 Resp: [16-20] SpO2 SpO2: 98 % SpO2: [97 %-100 %] on RA Admit weight 61.69 kg Current Weight Weight - Scale: 61.689 kg (136 lb) Intake/Output Summary (Last 24 hours) at 02/22/15 0812 Last data filed at 02/22/15 0504 Gross per 24 hour Intake 1433 ml Output 2400 ml Net -967 ml I/O 24h: 1.7L in of which 1L is PO and 0.8L is IV 2.4L out all urine PE: Gen: NAD Lines and tubes: PIV CV: RRR, normal S1/S2, no m/r/g. Resp: breathing unlabored, CTAB anteriorly Abd: normal-appearing, NABS, soft, NT, ND Ext: No edema. Skin: warm and dry Incisions: C/D/I Labs: Recent Labs 02/20/15 0858 WBC 9.4 HGB 12.2 HCT 37.5 PLATELET 208 Recent Labs 02/21/15 0830 02/20/15 2255 02/20/15 0858 NA 140 -- 139 K 4.7 3.4* 2.9* CL 102 -- 102 CO2 24 -- 26 BUN 3* -- 7* CREATININE 0.49* -- 0.44* GLUCOSE 151 -- 96 CALCIUM 9.2 -- 8.0* MAGNESIUM 0.94 0.84 0.68* Imaging: A/P: with hx of RYGB for morbid obesity who is POD #4 s/p ex lap for probable strangulated internal hernia is recovering well on the floor #NEURO: pain is controlled with oral oxy 5-10 q4h and ativan PRN spasms --increase oxy to q3h --cont ativan #CV: hemodynamically stable. Rhythm regular --no intervention #Resp: off O2 --encourage OOBWA and IS #GI: tolerating reg diet. No BM yet. Receiving bowel PRNs --soap suds enema today --regular diet this am --bowel regimen available PRN #: raines removed. Good UOP but signs and sx concerning for hospital acquired / CAUTI. Culture datapending --treat empirically with cipro x5d #FEK: repleted K and Mg --replete K PRN #Heme: H/H stable with last Hb of 12.2 --no intervention #ID: no fever or leukocytosis but urgency likely represents UTI given recent raines --UA #Prophylaxis: DVT: venodynes, SQH GI: PPI Dispo: floor. Discharge likely this afternoon pending BM Lincoln Yadav, MS4, Pager [phone] Plan of Care - Areli Tate RN - 02/21/2015 5:04 PM EDT Problem: General Plan of Care Goal: Plan of Care Review Outcome: Ongoing (Interventions Implemented as Appropriate) 02/21/15 1700 Plan of Care Review Plan of Care Outcome Status ongoing (interventions implemented as appropriate) Progress improving Coping/Psychosocial Response Interventions Plan of Care Reviewed with patient OUTCOME EVALUATION NOTE: OUTCOME SUMMARY: Ashley felt unlike herself this morning, c/o fatigue and weakness. VSS. Pt rested for some time and was encouraged to hydrate. Diet advanced to full liquids in AM and to regular in PM.No c/o n/v. Urine samples sent to lab. Ambulating independently. IV Ativan given x1 for abdominal muscle spasms. Midline ROGER with gregorio is C/D/D. In afternoon, pt states she feels much better. Given 5 mg oxycodone in hopes of transitioning her to PO pain meds. PLAN MOVING FORWARD: Completely wean off INVESTMENT ACCOUNTING CLERK for pain management INDIVIDUALIZED FALL PREVENTION: Assistance: ind Supervision: none Surveillance: Hourly rounding, call antoine in reach CPG OUTCOME EVALUATION: Goal: Individualization and Mutuality Outcome: Ongoing (Interventions Implemented as Appropriate) Goal: Fall Prevention-Safe Patient Handling Outcome: Ongoing (Interventions Implemented as Appropriate) 02/20/15 2337 02/21/15 0900 02/21/15 1058 Safety Interventions Safety Precautions/Fall Reduction -- environmental modification;fall reduction program maintained;lighting adjusted for task/safety;low bed;nonskid shoes/slippers when out of bed -- Musculoskeletal Interventions Activity/Level of Assistance -- -- up in encinas;independently Positioning -- up in chair;independent -- Muscle Strengthening -- -- -- Self-Care Promotion -- -- -- Sy Fall Risk History of Falling -- 0 -- Secondary Diagnosis -- 15 -- Ambulatory Aids -- 0 -- Intravenous Therapy/Heparin/Saline Lock -- 20 -- Gait/Transferring -- 0 -- Mental Status -- 0 -- Score -- 35 -- Activity and Safety Assistive Device Other (iv pole) -- -- OTHER Sy Fall Risk -- Med -- 02/21/15 170 Safety Interventions Safety Precautions/Fall Reduction -- Musculoskeletal Interventions Activity/Level of Assistance -- Positioning -- Muscle Strengthening activity/mobility promoted;mobility in bed promoted;personal routines for BADL/IADL promoted;up in chair encouraged for meals and activities Self-Care Promotion independence encouraged while providing assistance;personal routines for BADL/IADL promoted;personal/BADL objects within reach Sy Fall Risk History of Falling -- Secondary Diagnosis -- Ambulatory Aids -- Intravenous Therapy/Heparin/Saline Lock -- Gait/Transferring -- Mental Status -- Score -- Activity and Safety Assistive Device -- OTHER Sy Fall Risk -- Goal: Infection Control Outcome: Ongoing (Interventions Implemented as Appropriate) 02/21/15 0900 Safety Interventions Isolation Precautions standard precautions maintained Infection Prevention bronchial hygiene promoted;environmental surveillance;hydration promoted;nutrition promoted;promote handwashing;rest/sleep promoted Coping/Psychosocial Response Interventions Counseling emotional support provided;reassurance provided Goal: Discharge Needs Assessment Outcome: Ongoing (Interventions Implemented as Appropriate) 02/21/151699 Discharge Needs Assessment Concerns to be Addressed no discharge needs identified Readmission Within the Last 30 Days no previous admission in last 30 days Living Environment Transportation Available family or friend will provide Current Health Anticipated Changes Related to Illness inability to care for self Problem: Pain, Acute (Adult, Obstetrics) Goal: Identify Signs and Symptoms and Related Risk Factors Signs and symptoms and related risk factors are identified upon initiation of Human Response Clinical Practice Guideline (CPG) Outcome: Ongoing (Interventions Implemented as Appropriate) Goal: Acceptable Pain Control/Comfort Level Patient will demonstrate the desired outcomes. Outcome: Ongoing (Interventions Implemented as Appropriate) 02/21/151699 Pain, Acute (Adult, Obstetrics) Acceptable Pain Control/Comfort Level making progress toward outcome Problem: Skin Integrity Impairment, Risk/Actual (Adult, Obstetrics) Goal: Identify Signs and Symptoms and Related Risk Factors Signs and symptoms and related risk factors are identified upon initiation of Human Response Clinical Practice Guideline (CPG) Outcome: Ongoing (Interventions Implemented as Appropriate) 07/07/15 1700 Skin Integrity Impairment, Risk/Actual Treatment Related Related Risk Factors (Skin Integrity Impairment, Risk/Actual) surgery Goal: Skin Integrity/Wound Healing Patient will demonstrate the desired outcomes. Outcome: Ongoing (Interventions Implemented as Appropriate) 02/21/15 1700 Skin Integrity Impairment, Risk/Actual (Adult, Obstetrics) Skin Integrity/Wound Healing making progress toward outcome Initial Assessments - Kayden Carlin, PT - 02/21/2015 1:35 PM EDT Physical Therapy Evaluation Patient profile: Pt. is a 64 y.o. y.o. female admitted on 02/18/2015 by Sadie Davis MD. 64 y.o. female with hx of RYGB for morbid obesity who is POD #3 s/p ex lap for probable strangulated internal hernia. PMH: Past Medical History Diagnosis Date ??? Chronic back pain ??? Chronic hip pain Right ??? Arthritis ??? B12 deficiency Past Surgical History Procedure Laterality Date ??? Hysterectomy, total abdominal ??? Cholecystectomy 2008 ??? Gastrectomy 1993 ??? Tonsillectomy ??? Upper gi endoscopy, diagnostic N/A 11/17/2014 EGD, UPPER GI ENDOSCOPY performed by Virginia Macdonald MD at [facility] ENDOSCOPY ??? Upper gi endoscopy, biopsy N/A 11/17/2014 UPPER GASTROINTESTINAL ENDOSCOPY,WITH BIOPSY SINGLE OR MULTIPLE performed by Virginia Macdonald MD at [facility] ENDOSCOPY ??? Endoscopic us exam, esoph N/A 12/23/2014 UPPER EUS- ENDOSCOPIC ULTRASOUND performed by Mehran Ogden MD at [facility] ENDOSCOPY ??? Small bowel endoscopy, past duod N/A 12/23/2014 ENDOSCOPY, ENTEROSCOPY, SMALL INTESTINE performed by Mehran Ogden MD at [facility] ENDOSCOPY ??? Exploratory of abdomen N/A 02/18/2015 @EXPLORATORY LAPAROTOMY, WITH/WITHOUT BIOPSY(S) performed by Sadie Duff MD at [facility] MAIN OR ??? Drain abd abscess open 02/18/2015 @DRAINAGE OF PERITONEAL ABSCESS OR PERITONITIS; OPEN performed by Sadie Duff MD at [facility] MAIN OR ??? Lysis adnexal adhesions N/A 02/18/2015 @LYSIS OF ADHESIONS performed by Sadie Duff MD at [facility] MAIN OR Social History: Patient lives with her daughter who is available as needed to help at home. 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 Is normally indep, had never needed any assistive devices. Plans to go home at d/c. Precautions/Special Considerations: urinary urge today, says she normally has no problems, fall risk Subjective: ???I've walked around a few times I don't really think I need the walker I guess maybe I am a little wobbly, I guess I should get up more?? Objective: Pt seen for evaluation today. Pain: used INVESTMENT ACCOUNTING CLERK one time, has incision pain, generally tolerable Vital Signs: Sp02: WNL on room air HR: 90s to 100s Mental Status: appropriate, somewhat flat affect Musculoskeletal: ROM: WFL Strength: WFL Bed Mobility: Supine to Sit: indep Sit to Supine: indep instructed pt in log roll technique, bed was flat, did not use rail Transfers: Sit to Stand: supervision; pt is able to do so independently at this time. Stand to Sit: supervision; pt is able to do so independently at this time. Gait: Distance: 300 feet Device used: initially used iv pole for support, was steady; Tried some without it and she had some slight sway, thus had her continue to use the iv pole Level of assist: supervision; pt is able to do so independently at this time.--could do so with iv pole Pt. to utilize IV pole for support and indep for ambulation with nursing. Balance: Sitting: good Standing: good static, fair dynamic Informed Consent: The patient agrees to and understands the PT treatment plan and goals. Education: patient has been educated on Bed mobility, Safety , Role of therapy and Discharge planning and verbalizes understanding. Patient status, treatment, and mobility recommendations discussed with nursing. Assessment: Pt tolerated today???s evaluation well. The patient presents with pain, decreased functional mobility and ambulation status. The pt would benefit from skilled therapy services to maximize functional independence while in the hospital and to address limitations as noted above. Anticipate ptwill be d/c to home with family to assist as needed. Goals: To be achieved by 1-2 more days. 1. Pt. to demonstrate knowledge of precautions during functional activities. 2. Pt. to perform bed mobility and supine<>sit transfers indep. 3. Pt. to perform sit<>stand transfers indep. 4. Pt. to ambulate 150 feet indep. 5. Pt to negotiate flight of steps with rail, using rail and supervision. Plan: Pt to be seen 2x for therapy including Bed mobility, Transfers, Assistive device/technique, Stairs, Safety , Gait , Role of therapy and Discharge planning. Patient agrees with plan as stated above. Equipment needs: likely no equipment needs Discharge Recommendations: anticipate no PT needs after d/c Occupational Therapy consult Total time spent with patient: 35 minutes for evaluation Total timed interventions: 0 minutes Kayden Carlin, PT 02/21/2015 Pager: [phone] Physical Therapy Med Student Progress Note - Lincoln Yadav - 02/21/2015 9:12 AM EDT Lincoln Yadav, MS4, Pager [phone] MS4 Progress Note - 02/21/2015 Admission Date: 02/18/2015 HD#: 4 ID: Ashley Da Silva is a 64 y.o. female with hx of RYGB for morbid obesity who is POD #3 s/p ex lap for probable strangulated internal hernia Overnight events: -K runs from yesterday completed. K this am 3.4 - Mg returned low, was repleted x2. Last Mg wnl. Subjective: Notes new urgency and incontinence to urine. No baseline incontinence. - Pain is controlled - No gas or BM - Tolerating clears - ambulating around unit - no N/V Objective: Current 24h Range Temperature Temp: 36.6 ??C (97.9 ??F) Temp: [36.6 ??C (97.9 ??F)-36.8 ??C (98.2 ??F)] Heart Rate Heart Rate: 83 Heart Rate: [75-91] Blood Pressure BP: 139/72 mmHg BP: (139-158)/(63-89) Respiratory Rate Resp: 16 Resp: [16] SpO2 SpO2: 97 % SpO2: [95 %-100 %] on RA Admit weight 61.69 kg Current Weight Weight - Scale: 61.689 kg (136 lb) Intake/Output Summary (Last 24 hours) at 02/21/15 0912 Last data filed at 02/21/15 0841 Gross per 24 hour Intake 3642 ml Output 4250 ml Net -608 ml I/O 24h: 2.3L in of which 1.7L is IV, 0.5L is PO 3.7L out of which all is urine PE: Gen: NAD Lines and tubes: PIV CV: RRR, normal S1/S2, no m/r/g. Resp: breathing unlabored, CTAB anteriorly Abd: Obese, NABS, soft, NT, ND Ext: No edema. Skin: warm and dry Incisions: C/D/I Labs: Recent Labs 02/20/15 0858 02/18/152029 WBC 9.4 10.3* HGB 12.2 12.9 HCT 37.5 39.0 PLATELET 208 237 PT -- 13.9 INR -- 1.0 PTT -- 26 Recent Labs 02/20/15 2255 02/20/15 0858 02/18/15 2030 NA -- 139 139 K 3.4* 2.9* 3.7 CL -- 102 100 CO2 -- 26 26 BUN -- 7* 5* CREATININE -- 0.44* 0.67* GLUCOSE -- 96 123 CALCIUM -- 8.0* 9.0 MAGNESIUM 0.84 0.68* 0.78 PHOS -- -- 3.4 Imaging: A/P: with hx of RYGB for morbid obesity who is POD #3 s/p ex lap for probable strangulated internal hernia is recovering well on the floor #NEURO: pain is controlled with dilaudid INVESTMENT ACCOUNTING CLERK and ativan PRN spasms --cont above regimen #CV: hemodynamically stable. Rhythm regular --no intervention #Resp: off O2 --encourage OOBWA and IS #GI: tolerating full liquids. No BM yet. Receiving bowel PRNs --regular diet this am --bowel regimen available PRN #: raines removed. Good UOP but new signs of urgency/urge incontinence concerning for UTI --UA for urgency with reflex culture #FEK: K 3.4 -> 2.9 -> 3.7. Mg repleted up to 0.78 --replete K PRN #Heme: H/H stable with last Hb of 12.2 --no intervention #ID: no fever or leukocytosis but urgency possibly represents UTI given recent raines --UA #Prophylaxis: DVT: venodynes, SQH GI: PPI Dispo: floor. Discharge when taking PO pain meds alone and tolerating full diet Lincoln Yadav, MS4, Pager [phone] Plan of Care - Elmer Short RN - 02/21/2015 4:39 AM EDT Problem: General Plan of Care Goal: Plan of Care Review Outcome: Ongoing (Interventions Implemented as Appropriate) 02/20/15 1707 02/20/152336 Plan of Care Review Plan of Care Outcome Status ongoing (interventions implemented as appropriate) -- Progress improving -- Coping/Psychosocial Response Interventions Plan of Care Reviewed with -- patient Goal: Individualization and Mutuality Outcome: Ongoing (Interventions Implemented as Appropriate) 02/19/15722 Individualization Patient Specific Preferences Pt likes heating pad over abdomen Mutuality/Individual Preferences What anxieties, fears or concerns do you have about your health or care? none What questions do you have about your health or care? none What information would help us give you more personalized care? nothing Goal: Fall Prevention-Safe Patient Handling Outcome: Ongoing (Interventions Implemented as Appropriate) 02/20/15 19102/20/152336 Safety Interventions Safety Precautions/Fall Reduction -- lighting adjusted for task/safety;low bed;mobility aid;muscle strengthening facilitated;nonskid shoes/slippers when out of bed;room near unit station Sy Fall Risk History of Falling 0 -- Secondary Diagnosis 15 -- Ambulatory Aids 0 -- Intravenous Therapy/Heparin/Saline Lock 20 -- Gait/Transferring 10 -- Mental Status 0 -- Score 45 -- Activity and Safety Assistive Device -- Other (iv pole) OTHER Sy Fall Risk High -- Musculoskeletal Interventions Activity/Level of Assistance -- up in encinas;up in room;ambulated;with stand by assist Positioning -- independent Goal: Infection Control Outcome: Ongoing (Interventions Implemented as Appropriate) 02/20/152336 Safety Interventions Isolation Precautions standard precautions maintained Infection Prevention bronchial hygiene promoted;environmental surveillance;hydration promoted;nutrition promoted;promote handwashing;rest/sleep promoted Coping/Psychosocial Response Interventions Counseling emotional support provided;personal strengths integrated;reassurance provided;understanding of situation facilitated;verbalization of feelings encouraged Goal: Discharge Needs Assessment Outcome: Ongoing (Interventions Implemented as Appropriate) 02/19/15 0702/20/15 0918 Discharge Needs Assessment Concerns to be Addressed denies needs/concerns at this time -- Readmission Within the Last 30 Days no previous admission in last 30 days -- Living Environment Transportation Available -- family or friend will provide Problem: Pain, Acute (Adult, Obstetrics) Goal: Identify Signs and Symptoms and Related Risk Factors Signs and symptoms and related risk factors are identified upon initiation of Human Response Clinical Practice Guideline (CPG) Outcome: Ongoing (Interventions Implemented as Appropriate) 02/19/15 07 Pain, Acute Related Risk Factors (Acute Pain) anxiety;fatigue;inadequate control (episodic versus continuous management);initially high pain levels;procedures;stress;surgery Goal: Acceptable Pain Control/Comfort Level Patient will demonstrate the desired outcomes. 02/19/15722 Pain, Acute (Adult, Obstetrics) Acceptable Pain Control/Comfort Level making progress toward outcome Plan of Care - Farrah Hanna RN - 02/20/2015 5:09 PM EDT Problem: General Plan of Care Goal: Plan of Care Review Outcome: Ongoing (Interventions Implemented as Appropriate) 02/20/15 1707 Plan of Care Review Plan of Care Outcome Status ongoing (interventions implemented as appropriate) Progress improving Coping/Psychosocial Response Interventions Plan of Care Reviewed with patient OUTCOME EVALUATION NOTE: OUTCOME SUMMARY: Mrs. Da Silva is having a good day. She ambulated 3 times and her Raines was DC'd (able to void without any issues). K+ critically low at 2.9, notified with wrote for potassium runs. To recheck potassium once all the runs have been given. Full bed bath given. No flatus as of yet and hypoactive bowel sounds. Using INVESTMENT ACCOUNTING CLERK as needed. PLAN MOVING FORWARD: Continue to encourage ambulation, monitor vital signs INDIVIDUALIZED FALL PREVENTION: Assistance: 1 assist with pole Supervision: Assist with ADLs Surveillance: Hourly rounding, Masimo and Telemetry CPG OUTCOME EVALUATION: Goal: Fall Prevention-Safe Patient Handling Outcome: Ongoing (Interventions Implemented as Appropriate) 02/20/15 1000 02/20/15 1040 Safety Interventions Safety Precautions/Fall Reduction fall reduction program maintained;lighting adjusted for task/safety;low bed;muscle strengthening facilitated;nonskid shoes/slippers when out of bed;room near unit station -- Sy Fall Risk History of Falling 0 -- Secondary Diagnosis 15 -- Ambulatory Aids 15 -- Intravenous Therapy/Heparin/Saline Lock 20 -- Gait/Transferring 10 -- Mental Status 0 -- Score 60 -- Activity and Safety Assistive Device -- Other (IV Pole) OTHER Sy Fall Risk High -- Musculoskeletal Interventions Activity/Level of Assistance -- up in encinas;ambulated;with 1-person assist Positioning -- independent Goal: Infection Control Outcome: Ongoing (Interventions Implemented as Appropriate) 02/19/15 230 Safety Interventions Isolation Precautions standard precautions maintained Infection Prevention bronchial hygiene promoted;environmental surveillance;hydration promoted;promote handwashing;rest/sleep promoted Coping/Psychosocial Response Interventions Counseling emotional support provided;goal setting facilitated;personal strengths integrated;problemsolving facilitated;reassurance provided;verbalization of feelings encouraged Goal: Discharge Needs Assessment Outcome: Ongoing (Interventions Implemented as Appropriate) 02/19/1572202/20/1518 Discharge Needs Assessment Concerns to be Addressed denies needs/concerns at this time -- Readmission Within the Last 30 Days no previous admission in last 30 days -- Living Environment Transportation Available -- family or friend will provide Plan of Care - Elmer Short RN - 02/20/2015 1:57 AM EDT Problem: General Plan of Care Goal: Plan of Care Review Outcome: Ongoing (Interventions Implemented as Appropriate) 02/19/1572202/19/152305 Plan of Care Review Plan of Care Outcome Status ongoing (interventions implemented as appropriate) -- Progress improving -- Coping/Psychosocial Response Interventions Plan of Care Reviewed with -- patient Goal: Individualization and Mutuality Outcome: Ongoing (Interventions Implemented as Appropriate) 02/19/15722 Individualization Patient Specific Preferences Pt likes heating pad over abdomen Mutuality/Individual Preferences What anxieties, fears or concerns do you have about your health or care? none What questions do you have about your health or care? none What information would help us give you more personalized care? nothing Goal: Fall Prevention-Safe Patient Handling Outcome: Ongoing (Interventions Implemented as Appropriate) 02/19/152305 Safety Interventions Safety Precautions/Fall Reduction fall reduction program maintained;lighting adjusted for task/safety;low bed;mobility aid;nonskid shoes/slippers when out of bed;room near unit station Sy Fall Risk History of Falling 0 Secondary Diagnosis 15 Ambulatory Aids 15 Intravenous Therapy/Heparin/Saline Lock 20 Gait/Transferring 10 Mental Status 0 Score 60 Activity and Safety Assistive Device Front wheel walker OTHER Sy Fall Risk High Musculoskeletal Interventions Activity/Level of Assistance patient refuses activity (Pt aware of plans to ambulate, w/ assist, @ 06:00.) Positioning HOB up 30 degrees Goal: Infection Control Outcome: Ongoing (Interventions Implemented as Appropriate) 02/19/152305 Safety Interventions Isolation Precautions standard precautions maintained Infection Prevention bronchial hygiene promoted;environmental surveillance;hydration promoted;promote handwashing;rest/sleep promoted Coping/Psychosocial Response Interventions Counseling emotional support provided;goal setting facilitated;personal strengths integrated;problemsolving facilitated;reassurance provided;verbalization of feelings encouraged Goal: Discharge Needs Assessment Outcome: Ongoing (Interventions Implemented as Appropriate) 02/19/15722 Discharge Needs Assessment Concerns to be Addressed denies needs/concerns at this time Readmission Within the Last 30 Days no previous admission in last 30 days Living Environment Transportation Available family or friend will provide Problem: Pain, Acute (Adult, Obstetrics) Goal: Identify Signs and Symptoms and Related Risk Factors Signs and symptoms and related risk factors are identified upon initiation of Human Response Clinical Practice Guideline (CPG) Outcome: Ongoing (Interventions Implemented as Appropriate) 02/19/15722 Pain, Acute Related Risk Factors (Acute Pain) anxiety;fatigue;inadequate control (episodic versus continuous management);initially high pain levels;procedures;stress;surgery Goal: Acceptable Pain Control/Comfort Level Patient will demonstrate the desired outcomes. Outcome: Ongoing (Interventions Implemented as Appropriate) 02/19/15722 Pain, Acute (Adult, Obstetrics) Acceptable Pain Control/Comfort Level making progress toward outcome Plan of Care - David Page RN - 02/19/2015 7:56 PM EDT Problem: General Plan of Care Goal: Plan of Care Review Outcome: Ongoing (Interventions Implemented as Appropriate) 02/19/15 0702/19/15 075 Plan of Care Review Plan of Care Outcome Status ongoing (interventions implemented as appropriate) -- Progress improving -- Coping/Psychosocial Response Interventions Plan of Care Reviewed with -- patient Goal: Individualization and Mutuality Outcome: Ongoing (Interventions Implemented as Appropriate) 02/19/15722 Individualization Patient Specific Preferences Pt likes heating pad over abdomen Mutuality/Individual Preferences What anxieties, fears or concerns do you have about your health or care? none What questions do you have about your health or care? none What information would help us give you more personalized care? nothing Goal: Fall Prevention-Safe Patient Handling Outcome: Ongoing (Interventions Implemented as Appropriate) 02/19/15 07502/19/15 1000 Safety Interventions Safety Precautions/Fall Reduction fall reduction program maintained;nonskid shoes/slippers when out of bed -- Sy Fall Risk History of Falling 0 -- Secondary Diagnosis 15 -- Ambulatory Aids 15 -- Intravenous Therapy/Heparin/Saline Lock 20 -- Gait/Transferring 10 -- Mental Status 0 -- Score 60 -- Activity and Safety Assistive Device Front wheel walker -- OTHER Sy Fall Risk High -- Musculoskeletal Interventions Activity/Level of Assistance -- patient refuses activity Positioning HOB up 15 degrees;HOB up 30 degrees;independent -- Goal: Infection Control Outcome: Ongoing (Interventions Implemented as Appropriate) 02/19/15749 Safety Interventions Isolation Precautions standard precautions maintained Infection Prevention bronchial hygiene promoted;environmental surveillance;hydration promoted;nutrition promoted;promote handwashing;rest/sleep promoted Coping/Psychosocial Response Interventions Counseling reassurance provided Goal: Discharge Needs Assessment Outcome: Ongoing (Interventions Implemented as Appropriate) 02/19/15722 Discharge Needs Assessment Concerns to be Addressed denies needs/concerns at this time Readmission Within the Last 30 Days no previous admission in last 30 days Living Environment Transportation Available family or friend will provide Problem: Pain, Acute (Adult, Obstetrics) Goal: Identify Signs and Symptoms and Related Risk Factors Signs and symptoms and related risk factors are identified upon initiation of Human Response Clinical Practice Guideline (CPG) Outcome: Ongoing (Interventions Implemented as Appropriate) 02/19/15722 Pain, Acute Related Risk Factors (Acute Pain) anxiety;fatigue;inadequate control (episodic versus continuous management);initially high pain levels;procedures;stress;surgery Goal: Acceptable Pain Control/Comfort Level Patient will demonstrate the desired outcomes. Outcome: Ongoing (Interventions Implemented as Appropriate) 02/19/15 0723 Pain, Acute (Adult, Obstetrics) Acceptable Pain Control/Comfort Level making progress toward outcome Comments: OUTCOME EVALUATION NOTE: OUTCOME SUMMARY: Pt reported fatigue and weakness during day shift and refused transfer to bedside chair describing concern with increased abdominal pain and spasms. Frequent rounding applied to verify level of responsiveness in relation to INVESTMENT ACCOUNTING CLERK use, pain management, and application of comfort measures. Pt active with INVESTMENT ACCOUNTING CLERK use and related relief with medication administration. She continued to refuse ambulation during day shift but agreed to consider activity on PM shift. PLAN MOVING FORWARD: Activity and collaboration encouraged to improve patient tolerance and strength. Sips and chips brought to bedside with minimal PO intake and pt denial of any nausea during day shift. INDIVIDUALIZED FALL PREVENTION: Assistance: x1 assist with bedside activities due to device attachment. Supervision: Pt compliant with call light to communicate needs and requests with nursing staff. Surveillance: Pt tolerated masimo sensor, routine vitals, and purposeful rounding during day shift. CPG GOAL OUTCOME EVALUATION: Plan of Care - Katie Maravilla RN - 02/19/2015 7:33 AM EDT Problem: General Plan of Care Goal: Plan of Care Review Outcome: Ongoing (Interventions Implemented as Appropriate) 02/19/15 0723 Plan of Care Review Plan of Care Outcome Status ongoing (interventions implemented as appropriate) Progress improving Coping/Psychosocial Response Interventions Plan of Care Reviewed with patient OUTCOME EVALUATION NOTE: OUTCOME SUMMARY: Ms. Da Silva has had stable VS, U/O since surgery. Pain not well controlled with dilaudid INVESTMENT ACCOUNTING CLERK... She dozes, therefore not pushing INVESTMENT ACCOUNTING CLERK button, then awakens in severe pain. She describes her pain as spasms, MD aware. IV ativan 0.5 mg prescribed, dose given post op and pt appeared to bemore comfortable for 3-4 hours afterward. She denies nausea. Telemetry: SR (HR 80-105) with rare PVCs. PLAN MOVING FORWARD: Up to chair today. Reevaluate pain regimen. Give PRN ativan to attempt to moderate pain. INDIVIDUALIZED FALL PREVENTION: Assistance: Will require 1-2 assists first time up. Preop she ambulated well with good gait and balance. Supervision: Pt may be left unsupervised. She uses the call antoine appropriately. Surveillance: Masimo, hourly purposeful rounding, telemetry. CPG GOAL OUTCOME EVALUATION: Goal: Individualization and Mutuality Outcome: Ongoing (Interventions Implemented as Appropriate) 02/19/15722 Individualization Patient Specific Preferences Pt likes heating pad over abdomen Mutuality/Individual Preferences What anxieties, fears or concerns do you have about your health or care? none What questions do you have about your health or care? none What information would help us give you more personalized care? nothing Goal: Fall Prevention-Safe Patient Handling Outcome: Ongoing (Interventions Implemented as Appropriate) 02/19/15722 Safety Interventions Safety Precautions/Fall Reduction fall reduction program maintained Goal: Infection Control Outcome: Ongoing (Interventions Implemented as Appropriate) 02/19/15722 Safety Interventions Isolation Precautions standard precautions maintained Goal: Discharge Needs Assessment Outcome: Ongoing (Interventions Implemented as Appropriate) 02/19/15722 Discharge Needs Assessment Concerns to be Addressed denies needs/concerns at this time Readmission Within the Last 30 Days no previous admission in last 30 days Living Environment Transportation Available family or friend will provide Problem: Pain, Acute (Adult, Obstetrics) Goal: Identify Signs and Symptoms and Related Risk Factors Signs and symptoms and related risk factors are identified upon initiation of Human Response Clinical Practice Guideline (CPG) Outcome: Ongoing (Interventions Implemented as Appropriate) 02/19/15722 Pain, Acute Related Risk Factors (Acute Pain) anxiety;fatigue;inadequate control (episodic versus continuous management);initially high pain levels;procedures;stress;surgery Goal: Acceptable Pain Control/Comfort Level Patient will demonstrate the desired outcomes. Outcome: Ongoing (Interventions Implemented as Appropriate) 02/19/15722 Pain, Acute (Adult, Obstetrics) Acceptable Pain Control/Comfort Level making progress toward outcome Op Note - Sadie Duff MD - 02/18/2015 11:16 PM EDT [facility] Operative Note Patient Name: Ashley Da Silva : [id number] MR#: [id number] Case Date: 02/18/2015 Surgeon: Surgeon(s) and Role: * Sadie Duff MD - Primary * Zeus Welch MD - Resident-Surgeon Rajan Preoperative diagnosis: Peritonitis Postoperative diagnosis: Peritonitis Procedure(s): @EXPLORATORY LAPAROTOMY, WITH/WITHOUT BIOPSY(S) @DRAINAGE OF PERITONEAL ABSCESS OR PERITONITIS; OPEN @LYSIS OF ADHESIONS Anesthesia: Anesthesia type not filed in the log. Estimated Blood Loss: * No values recorded between 02/18/2015 9:56 PM and 02/18/2015 11:16 PM * Specimens removed during surgery: None Drains: None. Surgical Closure: Primary Closure - closure of ALL tissue levels during the original surgery regardless of wires, wickes, drains, or other devices extruding through the incision Disposition: awakened from anesthesia, extubated and taken to the recovery room in a stable condition, having suffered no apparent untoward event. 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 Procedure Description: Mrs. Da Silva was taken to the operating room after informed consent was obtained. She was positioned supine on the operating table, general anesthesia was administered and she was and intubated ithout difficulties. Her arms were placed at her sides. A Raines catheter was placed. S he had a nasogastric tube placed prior to the surgery. A formal timeout procedure was performed. Herabdomen was prepped with ChloraPrep and usual sterile fashion. 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 Dissection was carried down to expose the linea alba. She did not have any evidence of abdominal wall or incisional hernias. The abdomen was entered with cautery and there was no injury to underlying bowel as there were only very minimal adhesions between the omentum and her upper midline laparotomy scar. These were taken down with cautery. Exploration revealed a small amount of bloody ascites along the right colic gutter, left colic gutter and in the pelvis. There was a single band adhesion between the lateral sidewall and her omentum causing an internal hernia between the mid jejunum. This was lysed easily to reduce the herniated and strangulated jejunum. The jejunum serosa was thickened and hyperemic consistent with ongoing ischemia but without randy necrosis. There was no evidence of perforation. We inspected the small bowel from the ligament of Treitz and measured this for approximately 30-40 cm to the omij-vb-[id number] jejunojejunostomy anastomosis which was nicely intact. The pharyngeal jejunal limb then was measured for approximate ly 1 m until the hyperemic and edematous bowel was encountered from the strangulated mid jejunal internal hernia. This measured approximately 1 m in length. The remaining ileum was intact, normal without distention or strangulation. The ileocecal valve was intact. Her entire colon was somewhat dilatedwith air but was otherwise normal. We then inspected the eighth or Carlitos-en-Y limb which was passed retrocolic per Dr. So's operative note. This jejunal limb was nicely intact without any pathologyor abnormalities. We elected to open the defect in the transverse mesocolon and extended it to approx imately 10 cm cranial larger defect and attempt to prevent subsequent or future hernias at this mesenteric defect site. This mphx-dl-[id number] gastrojejunostomy anastomosis was also completely normal. Satisfied that the internal hernia had been completely reduced and the adhesion lysed we inspected the bowel further after irrigating the abdomen with copious amounts of warm normal saline and found the jejunum to be nicely viable. We elected to proceed with abdominal closure. The fascia was closed with 2 #1 looped PDS. The subcutaneous tissues were irrigated. The skin was closed with gregorio. Mrs. Dumont was awakened from anesthesia, extubated in the operating room and taken to the recovery room in hemodynamically stable condition. I was present from start to finish. Rosemary Duff MD 02/18/2015 11:23 PM Attestation: Case Date: 02/18/2015 I was present and I participated during the entire procedure (does not need to include opening and closing). Sadie Duff MD 02/18/2015 documented in this encounter Plan of Treatment Upcoming Encounters Date Type Specialty Care Team Description 05/28/2022 Appointment Pulmonology 05/28/2022 Office Visit Pulmonology Sonja Jenkins MD [facility] [place], [place] [address] (Wo rk) Scheduled Orders Name Type Priority Associated Diagnoses Order S chedule EKG 12 Lead ECG STAT Abdominal pain, RUQ (right O ne Time for 1 Occurrences upper quadrant) starting 11/2014 until 02/18/2015 documented as of this encounter Procedures Procedure Name Priority Date/Time Associated Diagnosis Comme nts COLD MEAT CHEF SCAN 02/24/2015 12:00 AM EDT BASIC METABOLIC Routine 02/23/2015 5:07 AM Result s for this PANEL (NON-FASTING) EDT procedur e are in the results section. URINALYSIS WITH Routine 02/21/2015 8:31 AM Result s for this REFLEX CULTURE EDT procedure are in the results section. URINE CULTURE Routine 02/21/2015 8:31 AM Results for this EDT procedure are i n the results section. MAGNESIUM Routine 02/21/2015 8:30 AM Results f or this EDT procedure are i n the results section. BASIC METABOLIC Routine 02/21/2015 8:30 AM Result s for this PANEL (NON-FASTING) EDT procedur e are in the results section. POTASSIUM Routine 02/20/2015 10:55 Results for this PM EDT procedure are i n the results section. MAGNESIUM Routine 02/20/2015 10:55 Results for this PM EDT procedure are i n the results section. HEMOGRAM Routine 02/20/2015 8:58 AM Results f or this EDT procedure are i n the results section. DIFFERENTIAL, Routine 02/20/2015 8:58 AM Results for this AUTOMATED EDT procedure are i n the results section. CBC (WITH DIFF) Routine 02/20/2015 8:58 AM EDT MAGNESIUM Routine 02/20/2015 8:58 AM Results f or this EDT procedure are i n the results section. BASIC METABOLIC Routine 02/20/2015 8:58 AM Result s for this PANEL (NON-FASTING) EDT procedur e are in the results section. @LYSIS OF ADHESIONS 02/18/2015 9:25 PM Peritonitis (WRVU 14.9) EDT @DRAINAGE OF 02/18/2015 9:25 PM Peritonitis PERITONEAL ABSCESS EDT OR PERITONITIS; OPEN (WRVU 26.67) @EXPLORATORY 02/18/2015 9:25 PM Peritonitis LAPAROTOMY, EDT WITH/WITHOUT BIOPSY(S) (WRVU 12.54) ABO/RH TYPING Routine 02/18/2015 9:08 PM Results for this EDT procedure are i n the results section. ANTIBODY SCREEN Routine 02/18/2015 9:08 PM Result s for this EDT procedure are i n the results section. TYPE AND SCREEN Routine 02/18/2015 9:08 PM ([facility]) EDT HEMOGRAM STAT 02/18/2015 8:30 PM Results f or this EDT procedure are i n the results section. DIFFERENTIAL, STAT 02/18/2015 8:30 PM Results for this AUTOMATED EDT procedure are i n the results section. LACTATE, WHOLE STAT 02/18/2015 8:30 PM Results for this BLOOD, SEND TO LAB EDT procedure are in ([facility]) the results section. APTT STAT 02/18/2015 8:30 PM Results f or this EDT procedure are i n the results section. PROTHROMBIN TIME STAT 02/18/2015 8:30 PM Resul ts for this EDT procedure are i n the results section. CBC (WITH DIFF) STAT 02/18/2015 8:30 PM EDT PHOSPHORUS STAT 02/18/2015 8:30 PM Results f or this EDT procedure are i n the results section. MAGNESIUM STAT 02/18/2015 8:30 PM Results f or this EDT procedure are i n the results section. HEPATIC FUNCTION STAT 02/18/2015 8:30 PM Resul ts for this PANEL EDT procedure are i n the results section. BASIC METABOLIC STAT 02/18/2015 8:30 PM Result s for this PANEL (NON-FASTING) EDT procedur e are in the results section. REQUEST FOR 2ND READ STAT 02/18/2015 6:52 PM R esults for this CT ABDOMEN AND EDT procedure are in PELVIS the results section. documented in this encounter Results SCAN DOC: COLD MEAT CHEF (02/24/2015 12:00 AM EDT) Narrative This result has an attachment that is no t available. Scanning Provider MEDIA MGR SCAN EXT ORDR/RSLT (ABNORMAL) Basic Metabolic Panel (non-fasting) (02/23/2015 5:07 AM EDT) P athologist Signature Glucose Lvl 106 65 - 199 CERNER mg/dL MILLENNIUM Comment: Diabetes: >=200 mg/dL plus symp toms BUN 11 8 - 18 mg/dL CERNER MILLENNIUM Comment: result rechecked-fc Creatinine 0.51 (L) 0.70 - 1.20 mg/dL CERNER MILL ENNIUM Comment: Please note that the pediatric reference intervals supplied above were not validated at [facility]. Results from pediatri c patients should be interpreted in conjunction to the patient's age, height and muscle mass. Sodium 137 135 - 145 mmol/L CERNER NILAY NIUM Potassium 3.7 3.5 - 5.0 mmol/L CERNER NILAY NIUM Comment: Please note: ??Patients with WBC >100,00 0 may have falsely elevated Potassium levels. ??For accurate Potassium quantif ication in these patients send serum separator tube (gold top) for subsequent determinations. ??Contact the Clinical Chemistry Laboratory if there are any qu estions. Chloride 100 98 - 107 mmol/L CERNER MILLENN IUM CO2 25 22 - 31 mmol/L CERNER MILLENNI UM Anion Gap 12 5 - 15 mmol/L CERNER MILLENNIU M Calcium 9.1 8.5 - 10.5 mg/dL CERNER NILAY NIUM Estimated GFR >60 >=60 CERNER MILLENNIU M [...] the following links into your internet browser. [email or web address] Specimen Anatomical Collection Method Collection Time Receive d Time (Source) Location / / Volume Laterality Blood specimen 02/23/2015 5:07 AM 015 5:12 (specimen) EDT AM EDT Resulting Agency Comment Spec In Lab Sadie Duff MD CHEMISTRY ORDERABLES Performing Organization Address City/State/[place] [address] [facility] (ABNORMAL) Urine culture Clean Catch Urine (02/21/2015 8:31 AM EDT) [facility] Method Time Signature Urine Culture Greater than CERNER 100,000 cfu/ml MILLENNIUM Escherichia coli (A) Organism Escherichia CERNER coli (A) MILLENNIUM Specimen (Source) Anatomical Collection Method Collection Time Re ceived Time Location / / Volume Laterality Urine specimen 02/21/2015 8:31 02/21/2015 9:03 obtained by clean AM EDT AM EDT catch procedure (specimen) Resulting Agency Comment Spec In Lab Organism Antibiotic Method Susceptibility Escherichia coli Ampicillin MICROSCAN METHOD Resistant Escherichia coli Ampicillin + Sulbactam MICROSCAN METHOD Resista nt Escherichia coli Aztreonam MICROSCAN METHOD Sensitive Escherichia coli Cefazolin MICROSCAN METHOD Sensitive Escherichia coli Cefepime MICROSCAN METHOD Sensitive Escherichia coli Ceftazidime MICROSCAN METHOD Sensitive Escherichia coli Ceftriaxone MICROSCAN METHOD Sensitive Escherichia coli Cefuroxime MICROSCAN METHOD Sensitive Escherichia coli Ciprofloxacin MICROSCAN METHOD Resistant Escherichia coli Gentamicin MICROSCAN METHOD Intermediate Escherichia coli Levofloxacin MICROSCAN METHOD Resistant Escherichia coli Meropenem MICROSCAN METHOD Sensitive Escherichia coli Nitrofurantoin MICROSCAN METHOD Sensitive Escherichia coli Piperacillin/Tazobactam MICROSCAN METHOD Sensit patel Escherichia coli Tetracycline MICROSCAN METHOD Sensitive Escherichia coli Tobramycin MICROSCAN METHOD Sensitive Escherichia coli Trimethoprim/Sulfa MICROSCAN METHOD Sensitive Sadie Duff MD MICROBIOLOGY - GENERAL ORDER [place] Performing Organization Address City/State/ZIP Code Phon e Number [place] [id number] [facility]) Urinalysis with microscopic (02/21/2015 8:31 AM EDT) [facility] Method Time Signature Glucose UA Negative Negative CERNER mg/dL MILLENNIUM Protein UA Negative Negative CERNER mg/dL MILLENNIUM Bilirubin UA Negative Negative CERNER mg/dL MILLENNIUM Comment: Clinical correlation required for positi ve Urine Bilirubin results as false positive may occur with some drugs and d rug related products. If a false positive is suspected a serum total bili bryan should be considered if clinically indicated. Urobilinogen UA Normal Normal mg/dL [facility] MILL ENNIUM pH UA 9.0 (H) 5.0 - 8.0 [facility] Blood UA Small (A) Negative mg/dL CERBANNER MILLENNI UM Ketones UA Negative Negative mg/dL CERBANNER MILLENN IUM Nitrite UA Negative Negative CERBANNER MILLENNIUM Leukocytes UA Trace (A) Negative mcL [facility] Appearance UA Clear Clear CERNER MILLENNIU M Spec [place] UA 1.008 1.002 - 1.030 CERNER MIL LENNIUM Color UA Yellow Yellow CERNER MILLENNIUM RBC UA 16 (H) 0 - 4 /HPF CERNER MILLENNIUM WBC UA 9 (H) 0 - 5 /HPF CERNER MILLENNIUM Bacteria UA Many (A) None /HPF CERNER MILLENNIUM Hyaline Cast UA 3 (H) 0 - 2 /LPF CERNER NILAY NIUM Specimen Anatomical Collection Method Collection Time Receive d Time (Source) Location / / Volume Laterality Urine specimen 02/21/2015 8:31 AM 015 8:51 (specimen) EDT AM EDT Resulting Agency Comment Spec In Lab Sadie Duff MD URINE ORDERABLES Performing Organization Address City/[facility]/ZIP [facility] Phon e Number [address] CERNER MILLENNIUM Magnesium (02/21/2015 8:30 AM EDT) athologist Signature Magnesium 0.94 0.69 - 1.07 CERNER mmol/L MILLENNIUM Specimen Anatomical Collection Method Collection Time Receive d Time (Source) Location / / Volume Laterality Blood specimen 02/21/2015 8:30 AM 015 8:39 (specimen) EDT AM EDT Resulting Agency Comment Spec In Lab Sadie Duff MD CHEMISTRY ORDERABLES Performing Organization Address City/[facility] Phon e Number [address] CERNER MILLENNIUM (ABNORMAL) Basic Metabolic Panel (non-fasting) (02/21/2015 8:30 AM EDT) athologist Signature Glucose Lvl 151 65 - 199 CERNER mg/dL MILLENNIUM Comment: Diabetes: >=200 mg/dL plus symp toms BUN 3 (L) 8 - 18 mg/dL CERNER MILLENNIUM Creatinine 0.49 (L) 0.70 - 1.20 mg/dL CERNER MILL ENNIUM Comment: Please note that the pediatric reference intervals supplied above were not validated at [facility]. Results from pediatri c patients should be interpreted in conjunction to the patient's age, height and muscle mass. Sodium 140 135 - 145 mmol/L CERNER NILAY NIUM Comment: result rechecked-NM Potassium 4.7 3.5 - 5.0 mmol/L CERNER NILAY NIUM Comment: result rechecked-NM Please note: ??Patients with WBC >100,00 0 may have falsely elevated Potassium levels. ??For accurate Potassium quantif ication in these patients send serum separator tube (gold top) for subsequent determinations. ??Contact the Clinical Chemistry Laboratory if there are any qu estions. Chloride 102 98 - 107 mmol/L CERNER MILLENN IUM Comment: result rechecked-NM CO2 24 22 - 31 mmol/L CERNER MILLENNI UM Anion Gap 14 5 - 15 mmol/L CERNER MILLENNIU M Calcium 9.2 8.5 - 10.5 mg/dL CERNER NILAY NIUM Estimated GFR >60 >=60 CERNER MILLENNIU M [...] the following links into your internet browser. [email or web address] Specimen Anatomical Collection Method Collection Time Receive d Time (Source) Location / / Volume Laterality Blood specimen 02/21/2015 8:30 AM 015 8:39 (specimen) EDT AM EDT Resulting Agency Comment Spec In Lab Sadie Duff MD CHEMISTRY ORDERABLES Performing Organization Address City/State/[place] [address] CERNER MILLENNIUM Magnesium (02/20/2015 10:55 PM EDT) P athologist Signature Magnesium 0.84 0.69 - 1.07 CERNER mmol/L MILLENNIUM Specimen Anatomical Collection Method Collection Time Receive d Time (Source) Location / / Volume Laterality Blood specimen Venous Draw / 02/20/2015 10:55 02/21/20 15 (specimen) Unknown PM EDT 11:05 PM EDT Resulting Agency Comment Spec In Lab Sadie Duff MD CHEMISTRY ORDERABLES Performing Organization Address City/[facility]/[place] [address] CERNER MILLENNIUM (ABNORMAL) Potassium (02/20/2015 10:55 PM EDT) athologist Signature Potassium 3.4 (L) 3.5 - 5.0 CERNER mmol/L MILLENNIUM Comment: Please note: ??Patients with WBC >100,00 0 may have falsely elevated Potassium levels. ??For accurate Potassium quantif ication in these patients send serum separator tube (gold top) for subsequent determinations. ??Contact the Clinical Chemistry Laboratory if there are any qu estions. Specimen Anatomical Collection Method Collection Time Receive d Time (Source) Location / / Volume Laterality Blood specimen 02/20/2015 10:55 5 (specimen) PM EDT 11:04 PM EDT Resulting Agency Comment Spec In Lab Sadie Duff MD CHEMISTRY ORDERABLES Performing Organization Address City/[facility]/ZIP Code Phon e Number [address] CERNER MILLENNIUM (ABNORMAL) Magnesium (02/20/2015 8:58 AM EDT) athologist Signature Magnesium 0.68 (L) 0.69 - 1.07 CERNER mmol/L MILLENNIUM Specimen Anatomical Collection Method Collection Time Receive d Time (Source) Location / / Volume Laterality Blood specimen Venous Draw / 02/20/2015 8:58 AM 2014 (specimen) Unknown EDT 10:01 AM EDT Resulting Agency Comment Spec In Lab Sadie Duff MD CHEMISTRY ORDERABLES Performing Organization Address City/[facility]/ZIP Code Phon e Number [address] CERNER MILLENNIUM (ABNORMAL) Differential, Automated (02/20/2015 8:58 AM EDT) Patholo gist Method Time Signature Neutrophils % 71.9 % CERNER MILLENNIUM Neutr Abs (ANC) 6.77 (H) 1.50 - CERNER 6.30 MILLENNIUM x10(3)/mc L Lymphocytes % 19.0 % CERNER MILLENNIUM Lymphocytes Abs 1.8 1.0 - 3.6 CERNER x10(3)/mc MILLENNIUM L Monocytes % 5.1 % CERNER MILLENNIUM Monocyte Abs 0.5 0.2 - 1.0 CERNER x10(3)/mc MILLENNIUM L Eosinophils % 3.6 % CERNER MILLENNIUM Eosinophils Abs 0.3 0.0 - 0.5 CERNER x10(3)/mc MILLENNIUM L Basophils % 0.2 % CERNER MILLENNIUM Basophils Abs 0.0 0.0 - 0.2 CERNER x10(3)/mc MILLENNIUM L Immature Gran % 0.20 % CERNER MILLENNIUM Comment: Immature granulocytes(IG's)percentage an d absolute count will include metamyelocytes, myelocytes, and promyelo cytes. Blood smears from CBCs yielding IG's will be scanned manually for concor dance. If this scan disagrees with the automated IG or if promyelocytes are not ed, a manual differential will be performed. Linda Gran Abs 0.02 0.00 - 0.05 x10(3)/mcL CER NER MILLENNIUM Specimen Anatomical Collection Method Collection Time Receive d Time (Source) Location / / Volume Laterality Blood specimen 02/20/2015 8:58 AM 015 9:29 (specimen) EDT AM EDT Resulting Agency Comment Spec In Lab Sadie Duff MD HEMATOLOGY ORDERABLES Performing Organization Address City/State/[place] [address] CERNER MILLENNIUM Hemogram (02/20/2015 8:58 AM EDT) P athologist Signature WBC 9.4 4.0 - 10.0 CERNER x10(3)/mcL MILLENNIUM RBC 4.28 3.93 - 5.22 CERNER x10(6)/mcL MILLENNIUM Hemoglobin 12.2 11.2 - 15.7 CERNER gm/dL MILLENNIUM Hematocrit 37.5 34.0 - 45.0 CERNER % MILLENNIUM MCV 87.6 79.0 - 94.0 CERNER fL MILLENNIUM MCH 28.5 26.6 - 32.2 CERNER pg MILLENNIUM MCHC 32.5 32.0 - 36.5 CERNER gm/dL MILLENNIUM Platelets 208 145 - 370 CERNER x10(3)/mcL MILLENNIUM RDWSD 45.0 35.0 - 46.0 CERNER fL MILLENNIUM RDWCV 14.1 10.9 - 14.4 CERNER % MILLENNIUM MPV 9.7 9.0 - 12.0 CERNER fL MILLENNIUM Specimen Anatomical Collection Method Collection Time Receive d Time (Source) Location / / Volume Laterality Blood specimen 02/20/2015 8:58 AM 015 9:29 (specimen) EDT AM EDT Resulting Agency Comment Spec In Lab Sadie Duff MD HEMATOLOGY ORDERABLES Performing Organization Address City/State/[place] [address] CERNER MILLENNIUM (ABNORMAL) Basic Metabolic Panel (non-fasting) (02/20/2015 8:58 AM EDT) athologist Signature Glucose Lvl 96 65 - 199 CERNER mg/dL MILLENNIUM Comment: Diabetes: >=200 mg/dL plus symp toms BUN 7 (L) 8 - 18 mg/dL CERNER MILLENNIUM Creatinine 0.44 (L) 0.70 - 1.20 mg/dL CERNER MILL ENNIUM Comment: Please note that the pediatric reference intervals supplied above were not validated at [facility]. Results from pediatri c patients should be interpreted in conjunction to the patient's age, height and muscle mass. Sodium 139 135 - 145 mmol/L CERNER NILAY NIUM Potassium 2.9 (Critical) 3.5 - 5.0 mmol/L CERNER M ILLENNIUM Comment: Called by: MABEL, Read back by: Farrah blue, Date/Time:02/20/15 10:20. result rechecked- Please note: ??Patients with WBC >100,00 0 may have falsely elevated Potassium levels. ??For accurate Potassium quantif ication in these patients send serum separator tube (gold top) for subsequent determinations. ??Contact the Clinical Chemistry Laboratory if there are any qu estions. called by/read back by (full name)/date- time Please note: ??Patients with WBC >100,00 0 may have falsely elevated Potassium levels. ??For accurate Potassium quantif ication in these patients send serum separator tube (gold top) for subsequent determinations. ??Contact the Clinical Chemistry Laboratory if there are any qu estions. Corrected from 2.9 mMol/L [CRIT] on 01/30 10:23 by Denise Ballard. Chloride 102 98 - 107 mmol/L CERNER MILLENN IUM CO2 26 22 - 31 mmol/L CERNER MILLENNI UM Anion Gap 11 5 - 15 mmol/L CERNER MILLENNIU M Calcium 8.0 (L) 8.5 - 10.5 mg/dL CERNER NILAY NIUM Estimated GFR >60 >=60 CERNER MILLENNIU M [...] the following links into your internet browser. [email or web address] Specimen Anatomical Collection Method Collection Time Receive d Time (Source) Location / / Volume Laterality Blood specimen 02/20/2015 8:58 AM 015 9:29 (specimen) EDT AM EDT Resulting Agency Comment Spec In Lab Sadie Duff MD CHEMISTRY ORDERABLES Performing Organization Address City/State/[place] [address] EMILIA ISSACENNIUM Antibody screen (02/18/2015 9:08 PM EDT) [facility] gist Method Time Signature Ab Screen Negative EMILIA Interp MILLENNIUM Expires at 02/21/2015 EMILIA [id number] on: MILLENNIUM Specimen Anatomical Collection Method Collection Time Receive d Time (Source) Location / / Volume Laterality Blood specimen 02/18/2015 9:08 PM 015 9:08 (specimen) EDT PM EDT Resulting Agency Comment Spec In Lab Sadie Duff MD BLOOD BANK ORDERABLES Performing Organization Address City/State/ZIP Code Phon e Number [address] CERNER MILLENNIUM ABO/Rh Typing (02/18/2015 9:08 PM EDT) P athologist Signature ABORh Type O Pos CERNER MILLENNIUM Specimen Anatomical Collection Method Collection Time Receive d Time (Source) Location / / Volume Laterality Blood specimen 02/18/2015 9:08 PM 015 9:08 (specimen) EDT PM EDT Resulting Agency Comment Spec In Lab Sadie Duff MD BLOOD BANK ORDERABLES Performing Organization Address City/[facility]/ZIP Code Phon e Number [address] CERNER MILLENNIUM (ABNORMAL) Differential, Automated (02/18/2015 8:30 PM EDT) [facility] gist Method Time Signature Neutrophils % 77.4 % CERNER MILLENNIUM Neutr Abs (ANC) 7.96 (H) 1.50 - CERNER 6.30 MILLENNIUM x10(3)/mc L Lymphocytes % 16.9 % CERNER MILLENNIUM Lymphocytes Abs 1.7 1.0 - 3.6 CERNER x10(3)/mc MILLENNIUM L Monocytes % 5.4 % CERNER MILLENNIUM Monocyte Abs 0.6 0.2 - 1.0 CERNER x10(3)/mc MILLENNIUM L Eosinophils % 0.1 % CERNER MILLENNIUM Eosinophils Abs 0.0 0.0 - 0.5 CERNER x10(3)/mc MILLENNIUM L Basophils % 0.1 % CERNER MILLENNIUM Basophils Abs 0.0 0.0 - 0.2 CERNER x10(3)/mc MILLENNIUM L Immature Gran % 0.10 % CERNER MILLENNIUM Comment: Immature granulocytes(IG's)percentage an [...] Location / / Volume Laterality Blood specimen 02/18/2015 8:30 PM 015 8:37 (specimen) EDT PM EDT Resulting Agency Comment Spec In Lab Sadie Duff MD HEMATOLOGY ORDERABLES Performing Organization Address City/[facility]/[place] [address] CERNER MILLENNIUM (ABNORMAL) Hemogram (02/18/2015 8:30 PM EDT) P athologist Signature WBC 10.3 (H) 4.0 - 10.0 CERNER x10(3)/mcL MILLENNIUM RBC 4.46 3.93 - CERNER 5.22 MILLENNIUM x10(6)/mcL Hemoglobin 12.9 11.2 - CERNER 15.7 gm/dL MILLENNIUM Hematocrit 39.0 34.0 - CERNER 45.0 % MILLENNIUM MCV 87.4 79.0 - CERNER 94.0 fL MILLENNIUM MCH 28.9 26.6 - CERNER 32.2 pg MILLENNIUM MCHC 33.1 32.0 - CERNER 36.5 gm/dL MILLENNIUM Platelets 237 145 - 370 CERNER x10(3)/mcL MILLENNIUM RDWSD 44.0 35.0 - CERNER 46.0 fL MILLENNIUM RDWCV 13.9 10.9 - CERNER 14.4 % MILLENNIUM MPV 9.2 9.0 - 12.0 CERNER fL MILLENNIUM Specimen Anatomical Collection Method Collection Time Receive d Time (Source) Location / / Volume Laterality Blood specimen 02/18/2015 8:30 PM 015 8:37 (specimen) EDT PM EDT Resulting Agency Comment Spec In Lab Sadie Duff MD HEMATOLOGY ORDERABLES Performing Organization Address City/[facility]/[place] [address] CERNER MILLENNIUM Lactate, whole blood, send to lab (02/18/2015 8:30 PM EDT) athologist Signature Lactate WB 1.7 0.5 - 2.2 CERNER mmol/L MILLENNIUM Specimen Anatomical Collection Method Collection Time Receive d Time (Source) Location / / Volume Laterality Blood specimen 02/18/2015 8:30 PM 015 8:37 (specimen) EDT PM EDT Resulting Agency Comment Spec In Lab Sadie Duff MD CHEMISTRY ORDERABLES Performing Organization Address City/[facility]/ZIP Code Phon e Number [address] CERNER MILLENNIUM Phosphorus (02/18/2015 8:30 PM EDT) athologist Signature Phosphorus 3.4 2.5 - 4.5 CERNER mg/dL [facility] Specimen Anatomical Collection Method Collection Time Receive d Time (Source) Location / / Volume Laterality Blood specimen 02/18/2015 8:30 PM 015 8:37 (specimen) EDT PM EDT Resulting Agency Comment Spec In Lab Sadie Duff MD CHEMISTRY ORDERABLES Performing Organization Address City/[facility]/ZIP Code Phon e Number [address] CERNER MILLENNIUM Magnesium (02/18/2015 8:30 PM EDT) athologist Signature Magnesium 0.78 0.69 - 1.07 CERNER mmol/L MILLENNIUM Specimen Anatomical Collection Method Collection Time Receive d Time (Source) Location / / Volume Laterality Blood specimen 02/18/2015 8:30 PM 015 8:37 (specimen) EDT PM EDT Resulting Agency Comment Spec In Lab Sadie Duff MD CHEMISTRY ORDERABLES Performing Organization Address City/[facility]/ZIP Code Phon e Number [address] CERNER MILLENNIUM (ABNORMAL) Basic Metabolic Panel (non-fasting) (02/18/2015 8:30 PM EDT) athologist Signature Glucose Lvl 123 65 - 199 CERNER mg/dL [facility] Comment: Diabetes: >=200 mg/dL plus symp toms BUN 5 (L) 8 - 18 mg/dL CERNER MILLENNIUM Creatinine 0.67 (L) 0.70 - 1.20 mg/dL CERNER MILL ENNIUM Comment: Please note that the pediatric reference intervals supplied above were not validated at [facility]. Results from pediatri c patients should be interpreted in conjunction to the patient's age, height and muscle mass. Sodium 139 135 - 145 mmol/L CERNER NILAY NIUM Potassium 3.7 3.5 - 5.0 mmol/L CERNER NILAY NIUM Comment: Please note: ??Patients with WBC >100,00 0 may have falsely elevated Potassium levels. ??For accurate Potassium quantif ication in these patients send serum separator tube (gold top) for subsequent determinations. ??Contact the Clinical Chemistry Laboratory if there are any qu estions. Chloride 100 98 - 107 mmol/L CERNER MILLENN IUM CO2 26 22 - 31 mmol/L CERNER MILLENNI UM Anion Gap 13 5 - 15 mmol/L CERNER MILLENNIU M Calcium 9.0 8.5 - 10.5 mg/dL CERNER NILAY NIUM Estimated GFR >60 >=60 CERNER MILLENNIU M [...] the following links into your internet browser. [email or web address] Specimen Anatomical Collection Method Collection Time Receive d Time (Source) Location / / Volume Laterality Blood specimen 02/18/2015 8:30 PM 015 8:37 (specimen) EDT PM EDT Resulting Agency Comment Spec In Lab Sadie Duff MD CHEMISTRY ORDERABLES Performing Organization Address City/State/[place] [address] CERNER MILLENNIUM Hepatic Function Panel (02/18/2015 8:30 PM EDT) athologist Signature Total Protein 6.7 6.1 - 8.0 CERNER gm/dL MILLENNIUM Albumin 4.1 3.2 - 5.2 CERNER gm/dL MILLENNIUM AST 16 0 - 30 CERNER unit/L MILLENNIUM ALT 8 0 - 30 CERNER unit/L MILLENNIUM Alk Phos 85 40 - 104 CERNER unit/L MILLENNIUM Total 0.5 0.2 - 1.3 CERNER Bilirubin mg/dL [facility] Bili, Direct 0.2 0.0 - 0.3 CERNER mg/dL MILLENNIUM Specimen Anatomical Collection Method Collection Time Receive d Time (Source) Location / / Volume Laterality Blood specimen 02/18/2015 8:30 PM 015 8:37 (specimen) EDT PM EDT Resulting Agency Comment Spec In Lab Sadie Duff MD CHEMISTRY ORDERABLES Performing Organization Address [facility] Phon e Number [address] CERNER MILLENNIUM APTT (02/18/2015 8:30 PM EDT) athologist Signature PTT 26 25 - 35 sec CERNER MILLENNIUM Comment: Recommended therapeutic PTT range for fu ll dose unfractionated heparin is 80-114 seconds. Specimen Anatomical Collection Method Collection Time Receive d Time (Source) Location / / Volume Laterality Blood specimen 02/18/2015 8:30 PM 015 8:37 (specimen) EDT PM EDT Resulting Agency Comment Spec In Lab Sadie Duff MD HEMATOLOGY ORDERABLES Performing Organization Address [facility] Phon e Number [address] CERNER MILLENNIUM Prothrombin Time (02/18/2015 8:30 PM EDT) athologist Signature PT 13.9 12.5 - 15.5 CERNER sec MILLENNIUM Comment: Transfusion Committee Guidelines: INR less than 2.0, PTT less than OR equal to 43.5 seconds, or Fibrinogen greater t aleman or equal to 100 mg/dl indicate adequate procoagulant activity for hemos tasis in patients without underlying bleeding disorders. INR 1.0 0.9 - 1.1 CERNER MILLENNIUM Specimen Anatomical Collection Method Collection Time Receive d Time (Source) Location / / Volume Laterality Blood specimen 02/18/2015 8:30 PM 015 8:37 (specimen) EDT PM EDT Resulting Agency Comment Spec In Lab Sadie Duff MD HEMATOLOGY ORDERABLES Performing Organization Address City/State/ZIP Code Phon e Number [place] [id number] [place] Request for 2nd read CT abdomen & pelvis (02/18/2015 6:52 PM EDT) Anatomical Region Laterality Modality Abdomen, Pelvis Other Specimen (Source) Anatomical Collection Method Collection Time Re ceived Time Location / / Volume Laterality 02/18/2015 6:52 PM EDT Impressions 02/18/2015 8:10 PM EDT IMPRESSION: 1. ??Complete small bowel obstruction. T ransition point is located at the site of a small enteric volvulus associated with narrowing of the mesenteric vessel caliber. Resultant engorgement of the sm all bowel mesentery in the left lower quadrant is concerning for strangulation . 2. ??Fat-containing midabdominal hernia, as above. Narrative 02/18/2015 8:10 PM EDT EXAMINATION: OUTSIDE CT ABDOMEN PELVIS CLINICAL HISTORY: small bowel obstructio n; What Modality is the exam? CT Scan; Body Part (please add comments as necess jason): abdomen; I believe a reinterpretation of this exam may alter care of Patient. Yesos TECHNIQUE: CT of the abdomen and pelvis enhanced with intravenous and endoluminal contrast material performed at [facility] submitted for reinterpretation. COMPARISON: MR of the abdomen performed at [facility] on November 15, 2014, CT of the abdomen with c ontrast obtained at [facility] on August 25, 2014. FINDINGS: Lung bases are clear. Multiple surgical gregorio project in the region of the stomach with appearance suggestive of pr ior gastric bypass surgery. Extensive intra and extrahepatic biliary ductal di latation is again seen. Pancreas and the pancreatic duct caliber are normal. There is diffuse dilatation of the proxi mal small bowel with an area of caliber change associated with mesenteric swirl in the left mid abdomen (coronal series 3 image 28, axial series 2 image 77) wit h distal decompression of small bowel. Extensive stranding is noted in the mese ntery supplying the decompressed loops of small bowel, associated with vascular cutoff and vascular caliber change at the level of the mesenteric swirl (serie s 3 image 28). Distal large bowel is decompressed. Proximal large bowel conta ins small amount of formed stool. There is a trace associated free fluid i n the pelvis. Patient is status post hysterectomy. No retroperitoneal or mese nteric lymphadenopathy is seen. Midline abdominal wall defect is seen with diast asis of rectus muscles, and a small (3 x 2 cm, 2.5 cm at the base) fat-containing hernia along the medial aspect of the left rectus muscle with mild stranding o f herniated fat (series 2 image 59). Procedure Note Luke Anaya MD - 02/18/2015For matting of this note might be different from the original. EXAMINATION: OUTSIDE CT ABDOMEN PELVIS CLINICAL HISTORY: small bowel obstructio n; What Modality is the exam? CT Scan; Body Part (please add comments as necess jason): abdomen; I believe a reinterpretation of this exam may alter care of Patient. Yesos TECHNIQUE: CT of the abdomen and pelvis enhanced with intravenous and endoluminal contrast material performed at [facility] submitted for reinterpretation. COMPARISON: MR of the abdomen performed at [facility] on November 15, 2014, CT of the abdomen with c ontrast obtained at [facility] on August 25, 2014. FINDINGS: Lung bases are clear. Multiple surgical gregorio project in the region of the stomach with appearance suggestive of pr ior gastric bypass surgery. Extensive intra and extrahepatic biliary ductal di latation is again seen. Pancreas and the pancreatic duct caliber are normal. There is diffuse dilatation of the proxi mal small bowel with an area of caliber change associated with mesenteric swirl in the left mid abdomen (coronal series 3 image 28, axial series 2 image 77) wit h distal decompression of small bowel. Extensive stranding is noted in the mese ntery supplying the decompressed loops of small bowel, associated with vascular cutoff and vascular caliber change at the level of the mesenteric swirl (serie s 3 image 28). Distal large bowel is decompressed. Proximal large bowel conta ins small amount of formed stool. There is a trace associated free fluid i n the pelvis. Patient is status post hysterectomy. No retroperitoneal or mese nteric lymphadenopathy is seen. Midline abdominal wall defect is seen with diast asis of rectus muscles, and a small (3 x 2 cm, 2.5 cm at the base) fat-containing hernia along the medial aspect of the left rectus muscle with mild stranding o f herniated fat (series 2 image 59). IMPRESSION IMPRESSION: 1. Complete small bowel obstruction. Tra nsition point is located at the site of a small enteric volvulus associated with narrowing of the mesenteric vessel caliber. Resultant engorgement of the sm all bowel mesentery in the left lower quadrant is concerning for strangulation . 2. Fat-containing midabdominal hernia, a s above. Sadie Duff MD IMG OUTSIDE INTERPRETATION O RDERABLES documented in this encounter Visit Diagnoses Diagnosis SBO (small bowel obstruction) - Primary Unspecified intestinal obstruction Abdominal pain, RUQ (right upper quadran t) Abdominal pain, right upper quadrant documented in this encounter Administered Medications Inactive Administered Medications - up to 3 most recent administrations Medication Order MAR Action Action Date Dose Rate Site acetaminophen (OFIRMEV) Given 02/20/2015 5:48 AM 1,000 mg 400 mL/hr injection 1,000 mg EDT 1,000 mg, Intravenous, at 400 mL/hr, EVERY 8 HOURS SCHEDULED, 3 doses, First dose on Fri02/19/15 at 1500, Last dose on Fri02/20/15 at 0600, Maximum dose of acetaminophen is 4000 mg from all sources in 24 hours., Routine Given 02/19/2015 9:06 PM EDT 1,000 mg 400 mL/hr Given 02/19/2015 3:15 PM EDT 1,000 mg 400 mL/hr acetaminophen (TYLENOL) tablet 975 mg Given 02/23/2015 9:15 AM EDT 975 mg 975 mg, Oral, EVERY 8 HOURS, First dose on Fri02/22/15 at 0900, Until Discontinued, Maximum dose of acetaminophen is 4000 mg from all sources in 24 hours., Routine Given 02/23/2015 12:51 AM EDT 975 mg Given 02/22/2015 5:36 PM EDT 975 mg bisacodyl (DULCOLAX) EC tablet 10 mg Given 02/22/2015 3:51 PM EDT 10 mg 10 mg, Oral, DAILY PRN, Starting on Fri02/22/15 at 1136, Until Fri02/23/15 at 1340, Constipation, Routine ciprofloxacin HCl (CIPRO) tablet 250 mg Given 02/23/2015 6:32 AM EDT 250 mg 250 mg, Oral, 2 TIMES DAILY, First dose on Fri02/22/15 at 1900, Until Discontinued, Routine Given 02/22/2015 7:40 PM EDT 250 mg ciprofloxacin HCl (CIPRO) tablet 500 mg Given 02/22/2015 9:23 AM EDT 500 mg 500 mg, Oral, 2 TIMES DAILY, 10 doses, First dose on Fri02/22/15 at 1000, Last dose on Fri02/26/15 at 1900, Routine dextrose 5% and sodium chloride New Bag 02/20/2015 9:12 AM EDT 75 mL/hr 75 mL/hr 0.45% with potassium chloride 20 mEq infusion 75 mL/hr, Intravenous, CONTINUOUS, Starting on Fri02/20/15 at 0730, Until Fri02/21/15 at 1934 docusate sodium (COLACE) capsule 100 mg Given 02/22/2015 8:14 AM EDT 100 mg 100 mg, Oral, 2 TIMES DAILY, First dose on Fri02/21/15 at 0900, Until Discontinued, Routine Given 02/21/2015 8:17 PM EDT 100 mg Given 02/21/2015 8:07 AM EDT 100 mg esomeprazole (NexIUM) injection 40 mg Given 02/23/2015 10:05 AM EDT 40 mg 40 mg, Intravenous, DAILY, First dose on Fri02/18/15 at 2000, Until Discontinued Given 02/22/2015 8:17 AM EDT 40 mg Given 02/21/2015 8:07 AM EDT 40 mg glycerin (adult) suppository 1 Given 02/21/2015 9:09 PM EDT 1 [place] ppository suppository 1 suppository, Rectal, ONCE, 1 dose, On Fri02/21/15 at 2000, Routine heparin (porcine) Given 02/23/2015 6:32 AM EDT 5,000 Units Abdominal Tissue subcutaneous injection 5,000 Units 5,000 Units, Subcutaneous, EVERY 8 HOURS SCHEDULED, First dose on Fri02/18/15 at 2200, Until Discontinued, Routine Given 02/22/2015 9:33 PM EDT 5,000 Units Given 02/22/2015 1:55 PM EDT 5,000 Units HYDROmorphone (DILAUDID) 1 mg/mL New Syringe/Cartridge 02/19/2015 1 2:11 AM EDT INVESTMENT ACCOUNTING CLERK 30 mL Intravenous, INVESTMENT ACCOUNTING CLERK ONLY, Starting on 02/18/15 at 1900, Until 02/19/15 at 0129, Recovery (Recovery-Hospital Unit) New Syringe/Cartridge 02/18/2015 7:13 PM EDT 30 mg Left Arm HYDROmorphone (DILAUDID) 1 mg/mL New Syringe/Cartridge 02/19/2015 1:4 5 AM EDT INVESTMENT ACCOUNTING CLERK 30 mL Intravenous, INVESTMENT ACCOUNTING CLERK ONLY, Starting on 02/19/15 at 0145, Until 02/21/15 at 1401, Recovery (Recovery-Hospital Unit) HYDROmorphone (DILAUDID) injection 0.4 m g Given 02/18/2015 6:05 PM EDT 0.4 mg 0.4 mg, Intravenous, ONCE, 1 dose, On 02/18/15 at 1815, Routine HYDROmorphone (DILAUDID) syringe 0.2-0.4 mg Given 02/19/2015 1:48 AM EDT 0.4 mg 0.2-0.4 mg, Intravenous, EVERY 5 MIN PRN, Pain, Starting on 02/18/15 at 2309, Until 02/19/15 at 0208, For moderate pain (4-6) give: 0.2 mg every 5 minute prn For severe pain (7-10) give: 0.4 mg every 5 minutes prn Maximum dose: 4 mg per hour Hold for respiratory rate less than 10 per minute., PACU Recovery Given 02/19/2015 1:23 AM EDT 0.4 mg Given 02/19/2015 1:05 AM EDT 0.4 mg lactated ringers 2,000 mL IV bolus Given 02/18/2015 9:15 PM EDT 2000 mL/hr at 2,000 mL/hr, Intravenous, ONCE, 1 dose, On 02/18/15 at 2115 lactated ringers infusion 1,000 New Bag 02/19/2015 6:00 PM EDT 1,000 mLs 100 mL/hr mL 1,000 mL, at 100 mL/hr, Intravenous, CONTINUOUS, Starting on Fri02/18/15 at 1900, Until Fri02/20/15 at 0705, Recovery (Recovery-Hospital Unit) New Bag 02/19/2015 9:17 AM EDT 1,000 mLs 100 mL/hr New Bag 02/19/2015 12:10 AM EDT 1,000 mLs 100 mL/hr lactulose (CHRONULAC) 20 gram/30 mL oral Given 02/22/2015 3:52 P M EDT 20 g solution 20 g 20 g, Oral, EVERY 2 HOURS WHILE AWAKE, 3 doses, First dose (after last reorder) on Fri02/22/15 at 1615, Last dose on Fri02/22/15 at 2200, Routine LORazepam (ATIVAN) injection 0.5 mg Given 02/21/2015 6:43 PM EDT 0.5 mg 0.5 mg, Intravenous, EVERY 2 HOURS PRN, Starting on Fri02/19/15 at 0312, Until Alexus 02/23/15 at 1340, Nausea, GI spasm, May repeat one time if anxiety not relieved in 30 minutes., Routine Given 02/21/2015 8:41 AM EDT 0.5 mg Given 02/21/2015 12:14 AM EDT 0.5 mg magnesium sulfate 1g in dextrose 5% Given 02/20/2015 9:03 PM EDT 1 g 100 mL/hr 100mL 1 g, Intravenous, ONCE, 1 dose, On Fri02/20/15 at 2100, Administer over 60 Minutes magnesium sulfate 1g in dextrose 5% Given 02/21/2015 5:06 AM EDT 1 g 100 mL/hr 100mL 1 g, Intravenous, ONCE, 1 dose, On Fri02/21/15 at 0500, Administer over 60 Minutes oxyCODONE (ROXICODONE) immediate release Given 02/23/2015 9:16 A M EDT 10 mg tablet 10 mg 10 mg, Oral, EVERY 4 HOURS PRN, Starting on Fri02/21/15 at 1400, Until Alexus 02/23/15 at 1340, Pain, severe pain (7-10), May give an additional 5 mg in 30 minutes once if pain not relieved., Routine Given 02/23/2015 4:42 AM EDT 10 mg Given 02/22/2015 8:39 PM EDT 10 mg oxyCODONE (ROXICODONE) immediate release Given 02/23/2015 12:51 AM EDT 5 mg tablet 5 mg 5 mg, Oral, EVERY 4 HOURS PRN, Starting on Fri02/21/15 at 1400, Until Fri02/23/15 at 1340, Pain, mild to moderate pain (1-6), May give an additional 5 mg in 30 minutes once if pain not relieved., Routine Given 02/21/2015 8:17 PM EDT 5 mg Given 02/21/2015 4:06 PM EDT 5 mg piperacillin-tazobactam (ZOSYN) Given 02/19/2015 6:08 AM EDT 3.3 75 g 12.5 mL/hr 3.375 g in dextrose 5% 50 mL 3.375 g, Intravenous, EVERY 8 HOURS, First dose on Fri02/19/15 at 0600, Until Discontinued, Administer over 4 Hours, Indication for (Active or Suspected): GI/Intra-abdominal polyethylene glycol (MIRALAX) packet 17 g Given 02/22/2015 8:14 AM EDT 17 g 17 g, Oral, DAILY, First dose on Fri02/21/15 at 0900, Until Discontinued, Routine Given 02/21/2015 8:08 AM EDT 17 g potassium chloride (K-DUR/KLOR-CON) extended Given 02/2015 5:51 AM EDT 60 mEq release tablet 60 mEq 60 mEq, Oral, ONCE, 1 dose, On Fri02/21/15 at 0530, Routine potassium chloride 10 mEq in 100 mL Given 02/20/2015 7:21 PM EDT 10 mEq 100 mL/hr 10 mEq, Intravenous, EVERY HOUR, 8 doses, First dose on Fri02/20/15 at 1200, Last dose on Fri02/20/15 at 1900, Administer over 60 Minutes Given 02/20/2015 5:50 PM EDT 10 mEq 100 mL/hr Given 02/20/2015 4:27 PM EDT 10 mEq 100 mL/hr potassium chloride 10 mEq in 100 mL Given 02/21/2015 5:06 AM EDT 10 mEq 100 mL/hr 10 mEq, Intravenous, EVERY HOUR, 4 doses, First dose on Fri02/21/15 at 0200, Last dose on Fri02/21/15 at 0500, Administer over 60 Minutes Given 02/21/2015 4:07 AM EDT 10 mEq 100 mL/hr Given 02/21/2015 3:10 AM EDT 10 mEq 100 mL/hr sodium chloride 0.9 % flush 5 mL Given 02/23/2015 10:05 AM EDT 5 mLs 5 mL, Intravenous, 2 TIMES DAILY, First dose on Fri02/18/15 at 2100, Until Discontinued, Recovery (Recovery-Hospital Unit), Routine Given 02/22/2015 8:39 PM EDT 5 mLs Given 02/22/2015 8:14 AM EDT 5 mLs documented in this encounter Active and Recently Administered Medications Times are shown in EDT. Scheduled Medication Order 02/21/2015 02/22/2015 02/23/2015 acetaminophen (TYLENOL) tablet 975 mg (CANCELED) 09 (Given - Provider: Areli Tate RN)1736 (Given - Provider: Areli Tate RN) 005 (Given - Provider: Connie Mcgill RN)0915 (Given - Provider: Mona Kebede RN) 975 mg, Oral, EVERY 8 HOURS, First dose on Fri02/22/15 at 0900, Until Discontinued, Maximum dose of acetaminophen is 4000 mg from all sources in 24 hours., Routine ciprofloxacin HCl (CIPRO) tablet 250 mg 1940 (Given - Provider: Areli Tate RN) 0632 (Given - Provider: Connie Mcgill RN) 250 mg, Oral, 2 TIMES DAILY, First dose on Fri02/22/15 at 1900, Until Discontinued, Routine ciprofloxacin HCl (CIPRO) tablet 500 mg (CANCELED) 09 (Given - Provider: Areli Tate RN) 500 mg, Oral, 2 TIMES DAILY, 10 doses, F irst dose on Fri02/22/15 at 1000, Last dose on Fri02/26/15 at 1900, Routine docusate sodium (COLACE) capsule 100 mg 08 (Given - Provider: Areli Tate RN)2016 (Given - Provider: Mona Kebede RN) 0814 (Given - Provider: Pilar Sexton RN)2100 (Not Given - Provider: Areli Tate RN - Reason: Order parameters not met) 0900 (Not Given - Provider: Mona denson RN - Reason: Patient/family refused) 100 mg, Oral, 2 TIMES DAILY, First dose on Fri02/21/15 at 0900, Until Discontinued, Routine esomeprazole (NexIUM) injection 40 mg (CANCELED) 0807 (Given - Provider: Areli Tate RN) 0817 (Given - Provider: Pilar Sexton RN) 1005 ( Given - Provider: Mona Kebede RN) 40 mg, Intravenous, DAILY, First dose on Fri02/18/15 at 2000, Until Discontinued glycerin (adult) suppository 1 suppository (COMPLETED) 2108 (Given - Provider: Mona Kebede RN - Comment: med not available at due time) 1 suppository, Rectal, ONCE, 1 dose, Fri02/21/15 at 2000, Routine heparin (porcine) subcutaneous injection 5,000 Units ( CANCELED) 0600 (Given - Provider: Elmer Short RN)1333 (Given - Provider: Areli Tate RN)2109 (Given - Provider: Mona Kebede RN) 0523 (Given - Provider: Mona Kebede RN)1355 (Given - Provider: Areli Tate RN)2133 (Given - Provider: Areli Tate RN) 0632 (Given - Provider: Connie Mcgill RN) 5,000 Units, Subcutaneous, EVERY 8 HOURS SCHEDULED, First dose on Fri02/18/15 at 2200, Until Discontinued, Routine lactulose (CHRONULAC) 20 gram/30 mL oral solution 20 g (CANC ELED) 1552 (Given - Provider: Areli Tate RN)1800 (Not Given - Provider: Areli Tate RN - Reason: Order parameters not met) 20 g, Oral, EVERY 2 HOURS WHILE AWAKE, 3 doses, First dose on Fri02/22/15 at 1615, Last dose on Fri02/22/15 at 2200, Routine magnesium sulfate 1g in dextrose 5% 100mL (CANCELED) 0 506 (Given - Provider: Elmer Short RN) 1 g, Intravenous, ONCE, 1 dose, Fri02/21/15 at 0500, for 60 Minut es polyethylene glycol (MIRALAX) packet 17 g (CANCELED) 0 808 (Given - Provider: Areli Tate, SIENA) 0814 (Given - Provider: Pilar Sexton, SIENA) 0900 ( Not Given - Provider: Mona Kebede, SIENA - Reason: Patient/family refused) 17 g, Oral, DAILY, First dose on 02/21 at 0900, Until Discontinued, Routine potassium chloride (K-DUR/KLOR-CON) extended release t ablet 60 mEq (COMPLETED) 0551 (Given - Provider: Elmer Short, SIENA) 60 mEq, Oral, ONCE, 1 dose, Fri02/21/15 at 0530, Routine potassium chloride 10 mEq in 100 mL (COMPLETED) 0201 ( Given - Provider: Elmer Short, SIENA)0310 (Given - Provider: Elmer Short, SIENA)0407 (Given - Provider: Elmer Short, SIENA)0506 (Given - Provider: Elmer Short, SIENA) 10 mEq, Intravenous, EVERY HOUR, 4 doses , First dose on Fri02/21/15 at 0200, Last dose on Fri02/21/15 at 0500, for 60 Minutes sodium chloride 0.9 % flush 5 mL (CANCELED) 0807 (Give n - Provider: Areli Tate, SIENA)2017 (Given - Provider: Mona Kebede, SIENA) 0814 (Given - Provider: Pilar Sexton, SIENA)2038 (Given - Provider: Areli Tate, SIENA) 1005 (Given - Provider: Mona Kebede, SIENA) 5 mL, Intravenous, 2 TIMES DAILY, First dose on 02/18/15 at 2100, Until Discontinued, Recovery (Recovery-Hospital Unit), Routine PRN Medication Order 02/21/2015 02/22/2015 02/23/2015 bisacodyl (DULCOLAX) EC tablet 10 mg (CANCELED) 1551 (Given - Provider: Areli Tate, ISENA) 10 mg, Oral, DAILY PRN, Starting Wed 02/22 at 1136, Until [place]us 02/23/15 at 1340, Constipation, Routine LORazepam (ATIVAN) injection 0.5 mg (CANCELED) 0014 (G traceen - Provider: Elmer Short RN)0841 (Given - Provider: Areli Tate, SIENA)1843 (Given - Provider: Areli Tate RN) 0.5 mg, Intravenous, EVERY 2 HOURS PRN, Starting 02/19/15 at 0312, Until Alexus 02/23/15 at 1340, Nausea, GI spasm, May repeat one time if anxiety not relieved in 30 minutes., Routine oxyCODONE (ROXICODONE) immediate release tablet 10 mg (CANCELED) 1605 (See Alternative - Provider: Areli Tate RN)2016 (See Alternative - Provider: Mona Kebede RN) 024 (Given - Provider: Mona Kebede RN)08 (Given - Provider: Pilar Sexton, SIENA)122 (Given - Provider: Areli Tate RN)162 (Given - Provider: Areli Tate RN)2038 (Given - Provider: Areli Tate RN) 005 (See Alternative - Provider: Yary Mcgill RN)0442 (Given - Provider: Connie Mcgill RN)0916 (Given - Provider: Mona Kebede RN) 10 mg, Oral, EVERY 4 HOURS PRN, Starting 02/21/15 at 1400, Until Alexus 02/23/15 at 1340, Pain, severe pain (7-10), May give an additional 5 mg in 30 minutes once if pain not relieved., Routine oxyCODONE (ROXICODONE) immediate release tablet 5 mg ( CANCELED) 1605 (Given - Provider: Areli Tate RN)2016 (Given - Provider: Mona Kebede RN) 024 (See Alternative - Provider: Mona Kebede RN)0817 (See Alternative - Provider: Pilar Sexton RN)122 (See Alternative - Provider: Areli Tate RN)162 (See Alternative - Provider: Areli Tate RN) 005 (Given - Provider: Connie Mcgill RN)0442 (See Alternative - Provider: Connie Mcgill RN)0916 (See Alternative - Provider: Mona Kebede, SIENA) 5 mg, Oral, EVERY 4 HOURS PRN, Starting 02/21/15 at 1400, Until Alexus 02/23/15 at 1340, Pain, mild to moderate pain (1-6), May give an additional 5 mg in 30 minutes once if pain not relieved., Routine 2038 (See Alternative - Provider: Areli Tate RN) documented in this encounter Care Teams Director Physical Therapy Relationship Specialty Start Date End Date Alfredo Smith MD PCP - General 07/10/10 04/21/15 documented as of this encounter
--- OUTSIDE RECORDS SUMMARY | 2022-03-12 15:46 | XMS_ITS | Encounter Summary ---
:1950 Author Organization [place] [address] Care Team Providers Name Role Phone Julieta Bonilla Primary Care Provider Reason for Visit Reason Onset Date Comments Medication Refill 07/11/2015 Encounter Details Date Type Department Care Team Description 07/11/2015 [place] [facility] [place], [place] [address] Social History Tobacco Use Types Packs/Day [...] Visit Pulmonology Sonja Jenkins MD [facility] er [facility] [place], [place] [address] (Wo rk) documented as of this encounter Visit Diagnoses Not on filedocumented in this encounter Care Teams Groover And Turner Relationship Specialty Start Date End Date Julieta Bonilla PA PCP - General 04/22/15 05/15/[address] [place] [address] documented as of this encounter
--- OUTSIDE RECORDS SUMMARY | 2022-03-12 15:46 | XMS_ITS | Encounter Summary ---
:1950 Author Organization [facility] Address [facility] [address] [place] [address] Care Team Providers Name Role Phone Julieta Bonilla Primary Care Provider Reason for Visit Reason Onset Date Comments Medication Refill 06/05/2015 Encounter Details Date Type Department Care Team Description 06/05/2015 Refill Rheumatology at [facility] [place] Hesham Dwyer MD [facility] [place] [address] RHEUMATOLOGY DEPT. [phone] [place], [place] [address] (Wo rk) Social History Tobacco [...] 05/28/2022 Office Visit Pulmonology Sonja Jenkins MD [facility] er Pulmonary [facility] [place], [place] [address] (Wo rk) documented as of this encounter Visit Diagnoses Not on filedocumented in this encounter Care Teams Operating Room Rn Relationship Specialty Start Date End Date Julieta Bonilla PA PCP - General 04/22/15 05/15/[address] [place] [address] documented as of this encounter
--- OUTSIDE RECORDS SUMMARY | 2022-03-12 15:46 | XMS_ITS | Encounter Summary ---
:1950 Author Organization [facility] Address [facility] [place] [address] Care Team Providers Name Role Phone Julieta Bonilla Primary Care Provider Reason for Visit Reason Onset Date Comments Patient Not Seen 05/30/2015 Consultation (Routine) - Closed Specialty Diagnoses / Procedures Referred By Contact Refer red To Contact Gastroenterology Diagnoses seen at ER for eval of severe LUQ pain, CT & CBC unremarkable Julieta Bonilla, [facility] SARTHAK [facility] [address] [place], [place] [address] [place] [address] Phone: Fax: Referral ID Status Reason Start Date Expiration Visits Visits Date Requested Authorized [id number] Closed Connection 05/12/2015 05/11/2016 6 6 Center Consult, Test & Treat PCP Updated and/or Approved Encounter Details Date Type Department Care Team Description 05/30/2015 [place] [facility] [place], PATIENT NOT SEEN [facility] [place] [address] [facility] [phone] [place] [address] Social History Tobacco Use Types Packs/Day Years Used Date Never Smoker Smokeless Tobacco: Never Used Alcohol Use Standard Drinks/Week Comments No 0 (1 standard drink = 0.6 oz pure alcoho l) Sex Assigned at Date Recorded Not on file documented as of this encounter Progress Notes Vicky Davis APRN - 05/30/2015 10:53 AM EDT No show. This patient was not seen in this encounter. documented in this encounter Plan of Treatment Upcoming Encounters Date Type Specialty Care Team Description 05/28/2022 Appointment Pulmonology 05/28/2022 Office Visit Pulmonology Sonja Jenkins MD [facility] er Pulmonary [place], [place] [address] (Wo rk) documented as of this encounter Visit Diagnoses Diagnosis PATIENT NOT SEEN documented in this encounter Care Teams Linen Controller Relationship Specialty Start Date End Date Julieta Bonilla PA PCP - General 04/22/15 05/15/[address] [place] [address] documented as of this encounter
--- OUTSIDE RECORDS SUMMARY | 2022-03-12 15:46 | XMS_ITS | Encounter Summary ---
:1950 Author Organization [facility] Address [facility] [place] [address] Care Team Providers Name Role Phone Alfredo Jamison MD Primary Care Provider Encounter Details Date Type Department Care Team Description 01/05/2015 Orders Only Gastroenterology at [facility] [place] Vicky Davis, Dilated cbd, [facility] [place] [address] [facility] [phone] [place] [address] Social History Tobacco Use Types Packs/Day Years [...] Office Visit Pulmonology Sonja Jenkins MD [facility] Pul[facility] [place], [place] [address] (Wo rk) documented as of this encounter Visit Diagnoses Diagnosis Dilated cbd, 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
--- OUTSIDE RECORDS SUMMARY | 2022-03-12 15:46 | XMS_ITS | Encounter Summary ---
:1950 [place] [address] Care Team Providers Name Role Phone Julieta Bonilla Primary Care Provider Encounter Details Date Type Department Care Team Description 05/30/2015 Telephone Gastroenterology at [facility] [place] Vicky Davis APRN [facility] [place] [address] [place] [address] [phone] (Wo rk) Social History Tobacco Use Types Packs/Day Years Used Date Never Smoker Smokeless Tobacco: Never Used Alcohol Use Standard Drinks/Week Comments No 0 (1 standard drink = 0.6 oz pure alcoho l) Sex Assigned at Date Recorded Not on file documented as of this encounter Miscellaneous Notes Telephone Encounter - Vicky Davis APRN - 05/30/2015 8:06 AM EDT Attempted to contact patient to recommend that she f/u with the surgeon that performed her gastric bypass in light of CT findings but her number disconnected. Contacted her son who reports that currenthome number in our system is correct and no other phone number available. documented in this encounter Plan of Treatment Upcoming Encounters Date Type Specialty Care Team Description 05/28/2022 Appointment Pulmonology 05/28/2022 Office Visit Pulmonology Sonja Jenkins MD [facility] Pulmonary Medicz[facility] [place], [place] [address] (Wo rk) documented as of this encounter Visit Diagnoses Not on filedocumented in this encounter Care Teams Exhauster Engineer Relationship Specialty Start Date End Date UpJulieta vasquez PA PCP - General 04/22/15 05/15/17 [address] [place] [address] documented as of this encounter
--- OUTSIDE RECORDS SUMMARY | 2022-03-12 15:46 | XMS_ITS | Encounter Summary ---
:1950 [place] [address] Care Team Providers Name Role Phone Alfredo Smith MD Primary Care Provider Encounter Details Date Type Department Care Team Description 02/18/2015 Surgery Main Operating Room Sadie Duff, @[facility] OF Kiley Woods MD PERITONEAL ABSCESS OR [facility] DR PERITONITIS; [facility] GENERAL SURGE RY (WRVU 26.67) [place] [address] [place] [address] [phone] Social History Tobacco Use Types Packs/Day Years [...] Appointments: Future Appointments Date Time Provider Department Center 03/02/2015 10:00 AM NURSE, GENERAL SURGERY [facility] 03/24/2015 1:00 PM RESIDENT, SURGICAL ONCOLOGY [facility] 05/10/2015 9:15 AM Hesham Dwyer MD [facility] Instructions Given to Patient at Discharge:. An After Visit Summary was printed and given to the patient. Patient Instructions [facility] [place] Department of General Surgery Patient Discharge [...] may be used if needed and are krdl-dte-qhoxoxa (OTC) medications available at most local pharmacies. [...] stool. Who to Call Main appointment line: [phone] Daytime triage line for questions/concerns: [phone] After hours (nights/weekends/holidays) for urgent questions/concerns: [phone] (ask for the general surgery resident to be paged). Follow-up Appointments: A Follow-up appointment will be scheduled with the General Surgery Outpatient Clinic - Public Relations Account Executive in 2-4 weeks. You will receive a letter in the mail and/or a phone call with information about this appointment. Please call [phone] (clinic number for appointments) to confirm date and time of your appointment, or if you do not receive information about your appointment in a timely manner. Future Appointments Date Time Provider Department Center 03/02/2015 10:00 AM NURSE, GENERAL SURGERY [facility] 03/24/2015 1:00 PM RESIDENT, SURGICAL ONCOLOGY [facility] 05/10/2015 9:15 AM Hesham Dwyer MD [facility] Department of General Surgery ??? [facility] ??? [address] ???[place] [address] ??? [phone] ~~~~~~~~~~~~~~~~~~~~~~~~~~~~~~~~~~~~~~~~~~~~~~~~~~~~~~~~~~~~~~~~~~~ Signed: Kiki Ferreira MD 02/23/2015 documented in this encounter Discharge Instructions Patient InstructionsKiki Ferreira MD - 02/19/2015 2:02 PM EDT [facility] Department of General Surgery Patient Discharge [...] may be used if needed and are zfop-ewr-fsktllj (OTC) medications available at most local pharmacies. [...] stool. Who to Call Main appointment line: [phone] Daytime triage line for questions/concerns: [phone] After hours (nights/weekends/holidays) for urgent questions/concerns: [phone] (ask for the general surgery resident to be paged). Follow-up Appointments: A Follow-up appointment will be scheduled with the General Surgery Outpatient Clinic - [address] in 2-4 weeks. You will receive a letter in the mail and/or a phone call with information about this appointment. Please call [phone] (clinic number for appointments) to confirm date and time of your appointment, or if you do not receive information about your appointment in a timely manner. Future Appointments Date Time Provider Department Center 03/02/2015 10:00 AM NURSE, GENERAL SURGERY [facility] 03/24/2015 1:00 PM RESIDENT, SURGICAL ONCOLOGY [facility] 05/10/2015 9:15 AM Hesham Dwyer MD [facility] Department of General Surgery ??? [facility] ??? [address] ???[place] [address] ??? [phone] ~~~~~~~~~~~~~~~~~~~~~~~~~~~~~~~~~~~~~~~~~~~~~~~~~~~~~~~~~~~~~~~~~~~ documented in this encounter Medications at Time of Discharge Medication Sig Dispensed Refills Start Date End Date desonide (DESOWEN) 0.05 % Prn 0 05/04/2014 Lotion cyanocobalamin, vitamin every 30 days. 0 06/20/20 14 B-12, 1,000 mcg/mL Solution ciprofloxacin HCl (CIPRO) Take 1 tablet by 10 tablet 0 04/201502/28/2015 250 mg Tablet mouth 2 times daily for 5 days. docusate sodium (COLACE) Take 1 capsule by 10 capsule 0 04/201503/05/2015 100 mg Capsule mouth 2 times daily for 10 days. oxyCODONE (ROXICODONE) 5 mg Take 1 tablet by 120 tablet 0 03/24/2015 Tablet mouth every 4 hours as [...] EDT Barb Coronado RN Case Manager pager [phone] Record reviewed. No discharge needs identified at this time. Dry Heat Room Attendant remains available as needed for coordination of [...] timed interventions: 15 minutes functional mobility Pager: [phone] Kayden Carlin, PT Physical Therapy Rehabilitation Department [...] EDT Office of Care Management (OCM) / Dry Heat Room Attendant(CM)/ Initial Assessment Barb Coronado RN Case Manager pager [phone] Reviewed record and interviewed patient. Introduced/reviewed CM [...] plus [employer] CURRENT HOME/COMMUNITY SERVICES/EQUIPMENT: None CYTOGENETIC TECHNOLOGIST REFERRAL: None ID at this time PRIMARY CARE PHYSICIAN: ALFREDO SMITH MD [address] / [facility] [address] POTENTIAL DISCHARGE NEEDS: None ID at present [...] describing lower abdominal pain with relief from SHIRT FOLDING MACHINE OPERATOR use. O: Order for tele monitoring provided after 02/18 procedure prior to return to floor. A: Pt with SR during day shift with occasional PVCs per telecommunication equipment repairer strips. P: Continued tele monitoring per MD order. No events reported by telecommunication equipment repairer during this shift. BP 142/76 Pulse 81 [...] [98 %-100 %] 02/18 0701 - 02/19 07 In: 2136.6 [I.V.:7.6] Out: 2024 [Urine:1975] Sips and Chips (Give [...] called and order received for modification of stage setting painter apprentice dosing. Pt using appropriately. Presently down to her baseline preop vital signs and appears much more comfortable. [facility] SIENA Wilson [facility]av[facility] RN - 02/18/2015 11:05 PM EDT 2121 - Pt taken to the OR by Dr. Duff. 500cc of 2000cc LR fluid bolus given, and zosyn not given (not up from pharmacy). Dr. Duff aware. Pt's family aware of OR, and they have spoken with Dr. Duff. documented in this encounter H&P Notes Marisol Adams MD - 02/18/2015 9:04 PM EDT [facility] Department of General Surgery Inpatient Admission Note [...] ENDOSCOPY performed by Virginia Macdonald MD at [facility] ENDOSCOPY ??? Upper gi endoscopy, biopsy N/A 11/17/2014 UPPER GASTROINTESTINAL ENDOSCOPY,WITH BIOPSY SINGLE OR MULTIPLE performed by Virginia Macdonald MD at [facility] ENDOSCOPY ??? Endoscopic us exam, esoph N/A 12/23/2014 UPPER EUS- ENDOSCOPIC ULTRASOUND performed by Mehran Ogden MD at [facility] ENDOSCOPY ??? Small bowel endoscopy, past 2nd duod N/A 12/23/2014 ENDOSCOPY, ENTEROSCOPY, SMALL INTESTINE performed by Mehran Ogden MD at [facility] ENDOSCOPY ALL: Allergies Allergen Reactions ??? Sulfa [...] secondary to small bowel volvulus Neuro: dilaudid SHIRT FOLDING MACHINE OPERATOR for pain CV: monitor hemodynamics for hypotension [...] is a 64 year old woman from [place] who was in her usual state of relatively good health until yesterday when I developed sudden pain in my stomach. Came on at 10:30 when I was trying to take a nap. Got worse as the day wore on. I started feeling nauseated and threw up by the time I got to the [facility]. I had a fever too. They put a nose tube down and that helped initially but I just kept getting worse. Then the pain went to my back. No history of this type of pain before. No history of pancreatitis. She does not smoke or drink. 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 History of RYGB by Dr. Mckee [...] 8:12 AM EDT Lincoln Yadav, MS4, Pager [phone] MS4 Progress Note - 02/22/2015 Admission Date: [...] afternoon pending BM Lincoln Yadav, MS4, Pager [phone] Plan of Care - Areli Tate RN [...] meds. PLAN MOVING FORWARD: Completely wean off SHIRT FOLDING MACHINE OPERATOR for pain management INDIVIDUALIZED FALL PREVENTION: Assistance: [...] Outcome: Ongoing (Interventions Implemented as Appropriate) 02/21/151699 Skin Integrity Impairment, Risk/Actual (Adult, Obstetrics) Skin [...] ENDOSCOPY performed by Virginia Macdonald MD at [facility] ENDOSCOPY ??? Upper gi endoscopy, biopsy N/A 11/17/2014 UPPER GASTROINTESTINAL ENDOSCOPY,WITH BIOPSY SINGLE OR MULTIPLE performed by Virginia Macdonald MD at [facility] END[facility]COPY ??? Endoscopic us exam, esoph N/A 12/23/2014 UPPER EUS- ENDOSCOPIC ULTRASOUND performed by Mehran Ogden MD at [facility] ENDOSCOPY ??? Small bowel endoscopy, past duod N/A 12/23/2014 ENDOSCOPY, ENTEROSCOPY, SMALL INTESTINE performed by Mehran Ogden MD at [facility] ENDOSCOPY ??? Exploratory of abdomen N/A 02/18/2015 @EXPLORATORY LAPAROTOMY, WITH/WITHOUT BIOPSY(S) performed by Sadie Duff MD at [facility] MAIN OR ??? Drain abd abscess open 02/18/2015 @DRAINAGE OF PERITONEAL ABSCESS OR PERITONITIS; OPEN performed by Sadie Duff MD at [facility] MAIN OR ??? Lysis adnexal adhesions N/A 02/18/2015 @LYSIS OF ADHESIONS performed by Sadie Duff MD at [facility] MA[facility] OR Social History: Patient lives with [...] Pt seen for evaluation today. Pain: used SHIRT FOLDING MACHINE OPERATOR one time, has incision pain, generally tolerable [...] 0 minutes Kayden Carlin, PT 02/21/2015 Pager: [phone] Physical Therapy Med Student Progress Note - Lincoln Yadav - 02/21/2015 9:12 AM EDT Lincoln Yadav, MS4, Pager [phone] MS4 Progress Note - 02/21/2015 Admission Date: [...] lb) Intake/Output Summary (Last 24 hours) at 07/07/15 0912 Last data filed at 02/21/15 0841 [...] Incisions: C/D/I Labs: Recent Labs 02/20/15 0858 02/18/15 2030 WBC 9.4 10.3* HGB 12.2 12.9 HCT [...] floor #NEURO: pain is controlled with dilaudid SHIRT FOLDING MACHINE OPERATOR and ativan PRN spasms --cont above regimen [...] tolerating full diet Lincoln Yadav, MS4, Pager [phone] Plan of Care - Elmer Short RN - 02/21/2015 4:39 AM EDT Problem: General Plan of Care Goal: Plan of Care Review Outcome: Ongoing (Interventions Implemented as Appropriate) 02/20/15 17002/20/152336 Plan of Care Review Plan of Care [...] of yet and hypoactive bowel sounds. Using SHIRT FOLDING MACHINE OPERATOR as needed. PLAN MOVING FORWARD: Continue to [...] out of bed;room near unit station -- Ys Fall Risk History of Falling 0 -- [...] Assessment Outcome: Ongoing (Interventions Implemented as Appropriate) 02/19/1572202/20/15 0918 Discharge Needs Assessment Concerns to be [...] Review Outcome: Ongoing (Interventions Implemented as Appropriate) 02/19/1572202/19/15 075 Plan of Care Review Plan of [...] verify level of responsiveness in relation to SHIRT FOLDING MACHINE OPERATOR use, pain management, and application of comfort measures. Pt active with SHIRT FOLDING MACHINE OPERATOR use and related relief with medication administration. [...] surgery. Pain not well controlled with dilaudid SHIRT FOLDING MACHINE OPERATOR... She dozes, therefore not pushing SHIRT FOLDING MACHINE OPERATOR button, then awakens in severe pain. She [...] Duff MD - 02/18/2015 11:16 PM EDT [facility] Operative Note Patient Name: Ashley Da Silva : [id number] MR#: [id number] Case Date: 02/18/2015 Surgeon: Surgeon(s) and Role: [...] this for approximately 30-40 cm to the jjja-fn-yxlq jejunojejunostomy anastomosis which was nicely intact. 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 This ojmu-iq-vbme gastrojejunostomy anastomosis was also completely normal. Satisfied [...] Visit Pulmonology Sonja Jenkins MD [facility] [place], [place] [address] (Wo rk) Scheduled Orders Name Type Priority Associated Diagnoses Order S chedule EKG 12 Lead ECG STAT Abdominal pain, RUQ (right O ne Time for 1 Occurrences upper quadrant) starting 11/2014 until 02/18/2015 documented as of this encounter Procedures Procedure Name Priority Date/Time Associated Diagnosis Comme nts INSTITUTION LIBRARIAN SCAN 02/24/2015 12:00 AM EDT BASIC METABOLIC [...] TYPE AND SCREEN Routine 02/18/2015 9:08 PM ([facility]) EDT HEMOGRAM STAT 02/18/2015 8:30 PM Results f or this EDT procedure are i n the results section. DIFFERENTIAL, STAT 02/18/2015 8:30 PM Results for this AUTOMATED EDT procedure are i n the results section. LACTATE, WHOLE STAT 02/18/2015 8:30 PM Results for this BLOOD, SEND TO LAB EDT procedure are in ([facility]) the results section. APTT STAT 02/18/2015 8:30 [...] documented in this encounter Results SCAN DOC: INSTITUTION LIBRARIAN (02/24/2015 12:00 AM EDT) Narrative This result [...] intervals supplied above were not validated at [facility]. Results from pediatri c patients should be [...] the following links into your internet browser. [email or web address] Specimen Anatomical Collection Method Collection Time Receive d Time (Source) Location / / Volume Laterality Blood specimen 02/23/2015 5:07 AM 015 5:12 (specimen) EDT AM EDT Resulting Agency Comment Spec In Lab Sadie Duff MD CHEMISTRY ORDERABLES Performing Organization Address City/State/Z[place] [address] SAURABHNER MILLENNIUM (ABNORMAL) Urine culture Clean Catch Urine (02/21/2015 8:31 AM EDT) [facility] Method Time Signature Urine Culture Greater [...] Organization Address City/State/ZIP Code Phon e Number [place] [id number] [facility] Urinalysis with microscopic (02/21/2015 8:31 AM EDT) [facility] Method Time Signature Glucose UA Negative [...] clinically indicated. Urobilinogen UA Normal Normal mg/dL [facility] MILL ENNIUM pH UA 9.0 (H) 5.0 - 8.0 [facility] MILLENNIUM Blood UA Small (A) Negative mg/dL CERNER MILLENNI UM Ketones UA Negative Negative mg/dL CERNER MILLENN IUM Nitrite UA Negative Negative CERNER MILLENNIUM Leukocytes UA Trace (A) Negative mcL [facility] [place] NIUM Appearance UA Clear Clear CERNER MILLENNIU M Spec [place] UA 1.008 1.002 - 1.030 CERNER MIL [...] Duff MD URINE ORDERABLES Performing Organization Address City/[facility]/ZIP [facility] Phon e Number [address] CERNER MILLENNIUM Magnesium (02/21/2015 8:30 AM EDT) athologist Signature Magnesium 0.94 0.69 - 1.07 CERNER mmol/L MILLENNIUM Specimen Anatomical Collection Method Collection Time Receive d Time (Source) Location / / Volume Laterality Blood specimen 02/21/2015 8:30 AM 015 8:39 (specimen) EDT AM EDT Resulting Agency Comment Spec In Lab Sadie Duff MD CHEMISTRY ORDERABLES Performing Organization Address City/[facility] Phon e Number [address] CERNER MILLENNIUM (ABNORMAL) Basic [...] intervals supplied above were not validated at [facility]. Results from pediatri c patients should be [...] the following links into your internet browser. [email or web address] Specimen Anatomical Collection Method Collection Time Receive d Time (Source) Location / / Volume Laterality Blood specimen 02/21/2015 8:30 AM 015 8:39 (specimen) EDT AM EDT Resulting Agency Comment Spec In Lab Sadie Duff MD CHEMISTRY ORDERABLES Performing Organization Address City/State/Z[place] [address] CERNER MILLENNIUM Magnesium (02/20/2015 [...] Duff MD CHEMISTRY ORDERABLES Performing Organization Address City/[facility]/[place] [address] CERNER MILLENNIUM (ABNORMAL) Potassium [...] Duff MD CHEMISTRY ORDERABLES Performing Organization Address City/[facility]/ZIP Code Phon e Number [address] CERNER MILLENNIUM (ABNORMAL) Magnesium [...] Duff MD CHEMISTRY ORDERABLES Performing Organization Address City/[facility]/ZIP Code Phon e Number [address] CERNER MILLENNIUM (ABNORMAL) Differential, Automated (02/20/2015 8:58 AM EDT) [facility] Method Time Signature Neutrophils % 71.9 [...] Organization Address City/State/[place] [address] CERNER MILLENNIUM Hemogram (02/20/2015 [...] Organization Address City/State/ZIP Code Phon e Number [place] [phone] CERNER MILLENNIUM (ABNORMAL) Basic [...] intervals supplied above were not validated at [facility]. Results from pediatri c patients should be [...] the following links into your internet browser. [email or web address] Specimen Anatomical Collection Method Collection Time Receive d Time (Source) Location / / Volume Laterality Blood specimen 02/20/2015 8:58 AM 015 9:29 (specimen) EDT AM EDT Resulting Agency Comment Spec In Lab Sadie Duff MD CHEMISTRY ORDERABLES Performing Organization Address City/State/Z[place] [address] SAURABHORLIN ISSACENNIUM Antibody screen (02/18/2015 9:08 PM EDT) [facility] gist Method Time Signature Ab Screen Negative EMILIA Interp MILLENNIUM Expires at 02/21/2015 EMILIA [id number] on: MILLENNIUM Specimen Anatomical Collection Method Collection Time Receive d Time (Source) Location / / Volume Laterality Blood specimen 02/18/2015 9:08 PM 015 9:08 (specimen) EDT PM EDT Resulting Agency Comment Spec In Lab Sadie Duff MD BLOOD BANK ORDERABLES Performing Organization Address City/State/ZIP Code Phon e Number [address] CERNER MILLENNIUM ABO/Rh Typing (02/18/2015 9:08 PM EDT) P athologist Signature ABORh Type O Pos CERNER MILLENNIUM Specimen Anatomical Collection Method Collection Time Receive d Time (Source) Location / / Volume Laterality Blood specimen 02/18/2015 9:08 PM 015 9:08 (specimen) EDT PM EDT Resulting Agency Comment Spec In Lab Sadie Duff MD BLOOD BANK ORDERABLES Performing Organization Address City/[facility]/ZIP Code Phon e Number [address] CERNER MILLENNIUM (ABNORMAL) Differential, Automated (02/18/2015 8:30 PM EDT) Patholo gist Method Time Signature Neutrophils % 77.4 [...] Duff MD HEMATOLOGY ORDERABLES Performing Organization Address City/[facility]/ZIP Code Phon e Number [address] CERNER MILLENNIUM (ABNORMAL) Hemogram (02/18/2015 8:30 PM EDT) athologist Signature WBC 10.3 (H) 4.0 - [...] Duff MD HEMATOLOGY ORDERABLES Performing Organization Address City/[facility]/ZIP Code Phon e Number [address] CERNER MILLENNIUM Lactate, whole blood, [...] Duff MD CHEMISTRY ORDERABLES Performing Organization Address City/[facility]/ZIP Code Phon e Number [address] CERNER MILLENNIUM Phosphorus (02/18/2015 8:30 PM EDT) athologist Signature Phosphorus 3.4 2.5 - 4.5 CERNER mg/dL MILLENNIUM Specimen Anatomical Collection Method Collection Time Receive d Time (Source) Location / / Volume Laterality Blood specimen 02/18/2015 8:30 PM 015 8:37 (specimen) EDT PM EDT Resulting Agency Comment Spec In Lab Sadie Duff MD CHEMISTRY ORDERABLES Performing Organization Address City/[facility]/ZIP Code Phon e Number [address] CERNER MILLENNIUM Magnesium (02/18/2015 8:30 PM EDT) athologist Signature Magnesium 0.78 0.69 - 1.07 CERNER mmol/L MILLENNIUM Specimen Anatomical Collection Method Collection Time Receive d Time (Source) Location / / Volume Laterality Blood specimen 02/18/2015 8:30 PM 015 8:37 (specimen) EDT PM EDT Resulting Agency Comment Spec In Lab Sadie Duff MD CHEMISTRY ORDERABLES Performing Organization Address City/[facility]/ZIP Code Phon e Number [address] CERNER MILLENNIUM (ABNORMAL) Basic Metabolic Panel (non-fasting) (02/18/2015 8:30 PM EDT) athologist Signature Glucose Lvl 123 65 - 199 CERNER mg/dL [facility] Comment: Diabetes: >=200 mg/dL plus symp toms BUN 5 (L) 8 - 18 mg/dL CERNER MILLENNIUM Creatinine 0.67 (L) 0.70 - 1.20 mg/dL CERNER MILL ENNIUM Comment: Please note that the pediatric reference intervals supplied above were not validated at [facility]. Results from pediatri c patients should be [...] the following links into your internet browser. [email or web address] Specimen Anatomical Collection Method Collection Time Receive d Time (Source) Location / / Volume Laterality Blood specimen 02/18/2015 8:30 PM 015 8:37 (specimen) EDT PM EDT Resulting Agency Comment Spec In Lab Sadie Duff MD CHEMISTRY ORDERABLES Performing Organization Address City/State/Z[place] [address] CERNER MILLENNIUM Hepatic Function Panel (02/18/2015 8:30 PM EDT) athologist Signature Total Protein 6.7 6.1 - 8.0 CERNER gm/dL [facility] Albumin 4.1 3.2 - 5.2 CERNER gm/dL [facility] AST 16 0 - 30 CERNER unit/L [facility] ALT 8 0 - 30 CERNER unit/L [facility] Alk Phos 85 40 - 104 CERNER unit/L [facility] Total 0.5 0.2 - 1.3 CERNER Bilirubin mg/dL [facility] Bili, Direct 0.2 0.0 - 0.3 CERNER mg/dL [facility] Specimen Anatomical Collection Method Collection Time Receive d Time (Source) Location / / Volume Laterality Blood specimen 02/18/2015 8:30 PM 015 8:37 (specimen) EDT PM EDT Resulting Agency Comment Spec In Lab Sadie Duff MD CHEMISTRY ORDERABLES Performing Organization Address [facility] Phon e Number [address] CERNER MILLENNIUM APTT (02/18/2015 8:30 PM EDT) athologist [facility] PTT 26 25 - 35 sec CERNER MILLENNIUM Comment: Recommended therapeutic PTT range for fu ll dose unfractionated heparin is 80-114 seconds. Specimen Anatomical Collection Method Collection Time Receive d Time (Source) Location / / Volume Laterality Blood specimen 02/18/2015 8:30 PM 015 8:37 (specimen) EDT PM EDT Resulting Agency Comment Spec In Lab Sadie Duff MD HEMATOLOGY ORDERABLES Performing Organization Address [facility] Phon e Number [address] CERNER MILLENNIUM Prothrombin Time (02/18/2015 8:30 PM EDT) athologist [facility] PT 13.9 12.5 - 15.5 CERNER sec [...] Organization Address City/State/[place] [address] [employer] Request for 2nd read CT abdomen & [...] endoluminal contrast material performed at [facility] submitted for reinterpretation. COMPARISON: MR of the abdomen performed at [facility] on November 15, 2014, CT of the abdomen with c ontrast obtained at [facility] on August 25, 2014. FINDINGS: Lung [...] endoluminal contrast material performed at [facility] submitted for reinterpretation. COMPARISON: MR of the abdomen performed at [facility] on November 15, 2014, CT of the abdomen with c ontrast obtained at [facility] on August 25, 2014. FINDINGS: Lung [...] RDERABLES documented in this encounter Visit Diagnoses Not on filedocumented in this encounter Active and Recently Administered Medications Times are shown in EDT. Scheduled Medication Order 02/21/2015 02/22/2015 02/23/2015 acetaminophen (TYLENOL) tablet 975 mg (CANCELED) 0923 (Given - Provider: Areli Tate RN)1736 (Given - Provider: Areli Tate RN) 0051 (Given - Provider: Connie Mcgill RN)0915 (Given [...] ciprofloxacin HCl (CIPRO) tablet 500 mg (CANCELED) 0923 (Given - Provider: Areli Tate RN) 500 mg, Oral, 2 TIMES DAILY, 10 doses, F irst dose on Fri02/22/15 at 1000, Last dose on Fri02/26/15 at 1900, Routine docusate sodium (COLACE) capsule 100 mg 0807 (Given - Provider: Areli Tate RN)2017 (Given - Provider: Mona Kebede RN) 0814 (Given - Provider: Pilar Sexton, SIENA)2100 (Not Given - Provider: Areli Tate RN - Reason: Order parameters not met) 0900 (Not Given - Provider: Mona denson RN - Reason: Patient/family refused) 100 mg, Oral, 2 TIMES DAILY, First dose on Fri02/21/15 at 0900, Until Discontinued, Routine esomeprazole (NexIUM) injection 40 mg (CANCELED) 0807 (Given - Provider: Areli Tate RN) 0817 (Given - Provider: Pilar Setxon RN) 1005 ( Given - Provider: Mona [...] Short RN)1333 (Given - Provider: Areli Tate RN)210 (Given - Provider: Mona Kebede RN) 0523 [...] (CANC ELED) 1552 (Given - Provider: Areli Tate, SIENA)1800 (Not Given - Provider: Areli Tate RN [...] (CANCELED) 1551 (Given - Provider: Areli Tate, SIENA) 10 mg, Oral, DAILY PRN, Starting 02/22 at 1136, Until Alexus 02/23/15 at 1340, Constipation, Routine LORazepam (ATIVAN) injection 0.5 mg (CANCELED) 0014 (G iven - Provider: Elmer Short RN)0841 (Given - Provider: Areli Tate RN)1843 (Given - Provider: Areli Tate RN) 0.5 mg, Intravenous, EVERY 2 HOURS PRN, Starting 02/19/15 at 0312, Until Alexus 02/23/15 at 1340, Nausea, GI spasm, May repeat one time if anxiety not relieved in 30 minutes., Routine oxyCODONE (ROXICODONE) immediate release tablet 10 mg (CANCELED) 1606 (See Alternative - Provider: Areli Tate RN)2016 (See Alternative - Provider: Mona Kebede RN) 0241 (Given - Provider: Mona Kebede RN)0817 (Given - Provider: Pilar Sexton RN)1224 (Given - Provider: Areli Tate RN)1628 (Given - Provider: Areli Tate RN)2039 (Given - Provider: Areli Tate RN) 0051 (See Alternative - Provider: Yary Mcgill RN)0442 (Given - Provider: Connie Mcgill RN)0916 (Given - Provider: Mona Kebede RN) 10 mg, Oral, EVERY 4 HOURS PRN, Starting Fri02/21/15 at 1400, Until Alexus 02/23/15 at 1340, Pain, severe pain (7-10), May give an additional 5 mg in 30 minutes once if pain not relieved., Routine oxyCODONE (ROXICODONE) immediate release tablet 5 mg ( CANCELED) 1606 (Given - Provider: Areli Tate RN)2016 (Given - Provider: Mona Kebede RN) 0241 (See Alternative - Provider: Mona Kebede RN)0817 (See Alternative - Provider: Pilar Sexton, SIENA)1224 (See Alternative - Provider: Areli Tate, SIENA)1628 (See Alternative - Provider: Areli Tate, SIENA) 0051 (Given - Provider: Connie Victor V, RN)0442 (See Alternative - Provider: Connie Victor V, RN)0916 (See Alternative - Provider: Mona Kebede, SIENA) 5 mg, Oral, EVERY 4 HOURS PRN, Starting 02/21/15 at 1400, Until Alexus 02/23/15 at 1340, Pain, mild to moderate pain (1-6), May give an additional 5 mg in 30 minutes once if pain not relieved., Routine 2038 (See Alternative - Provider: Areli Tate, SIENA) documented in this encounter Care Teams Combine Mechanic Relationship Specialty Start Date End Date Alfredo Smith MD PCP - General 07/10/10 04/21/15 documented as of this encounter
--- OUTSIDE RECORDS SUMMARY | 2022-03-12 15:46 | XMS_ITS | Encounter Summary ---
:1950 Author Organization [facility] Address [facility] [address] [place] [address] Care Team Providers Name Role Phone Alfredo Jamison MD Primary Care Provider Reason for Visit Reason Onset Date Comments Other 12/14/2014 tramadol Encounter Details Date Type Department Care Team Description 12/14/2014 Telephone Rheumatology at [facility] Carlita Cummings, Other (tramadol) [facility] [place] [address] Social History Tobacco Use Types Packs/Day Years Used Date Never Smoker Smokeless Tobacco: Never Used Alcohol Use Standard Drinks/Week Comments No 0 (1 standard drink = 0.6 oz pure alcoho l) Sex Assigned at Date Recorded Not on file documented as of this encounter Miscellaneous Notes Telephone Encounter - Carlita Cummings RN - 12/14/2014 3:26 PM EDT Ashley called today to say her dog ate her tramadol and she needs an early refill. She would like sent to [facility] in [place], [place]. Called [facility] in [place]. She says Ashley attempted to fill it there over the weekend and could not. She then appears to have brought rx to [facility] in [facility] they have filled the medication. Pharmacist in [place] says it is waiting for order picker. Called Ashley back and spoke to her daughter, Marimar relaying this information. Marimar asked if there was a way to get it transferred to [place]. Told her she would have to call pharmacy and ask. Asked how thedog was, she said fine. documented in this encounter Plan of Treatment Upcoming Encounters Date Type Specialty Care Team Description 05/28/2022 Appointment Pulmonology 05/28/2022 Office Visit Pulmonology Sonja Jenkins MD [facility] er Pulmonary Medic[place] [id number] (Wo rk) documented as of this encounter Visit Diagnoses Not on filedocumented in this encounter Care Teams Employment Programs Analyst Relationship Specialty Start Date End Date Alfredo Jamison MD PCP - General 07/10/10 04/21/15 documented as of this encounter
--- OUTSIDE RECORDS SUMMARY | 2022-03-12 15:46 | XMS_ITS | Encounter Summary ---
:1950 Author Organization [facility] [place] [address] Care Team Providers Name Role Phone Alfredo Jamison MD Primary Care Provider Reason for Visit Reason Onset Date Comments Advice Only 01/06/2015 Encounter Details Date Type Department Care Team Description 01/06/2015 Telephone Gastroenterology at [facility] Juan A Pizarro, tree and shrub technician [facility] [address] Social History Tobacco Use Types Packs/Day Years Used Date Never Smoker Smokeless Tobacco: Never Used Alcohol Use Standard Drinks/Week Comments No 0 (1 standard drink = 0.6 oz pure alcoho l) Sex Assigned at Date Recorded Not on file documented as of this encounter Miscellaneous Notes Telephone Encounter - Juan A Pizarro, RN - 01/06/2015 10:05 AM EDT Telephoned patient - returned patient's 01/05/[address] scan results (per Irma Davis, IT SALES REPRESENTATIVE: No abnormality. No evidence of ampullary mass on endoscopic imaging. Given the patient's normal liver tests and the fact that she has had a CCY, her CBD is likely not due to an obstructive process. Recommend MRCP in 3 months and order placed.). No answer, no voicemail. Called cell phone in chart - this is the patient's daughter's cell phone. She referred me to the patient's cell phon, which is [phone]. Left voicemail to call back. documented in this encounter Plan of Treatment Upcoming Encounters Date Type Specialty Care Team Description 05/28/2022 Appointment Pulmonology 05/28/2022 Office Visit Pulmonology Sonja Jenkins MD [facility] er Pulmonary Medici [place], [place] [address] (Wo rk) documented as of this encounter Visit Diagnoses Not on filedocumented in this encounter Care Teams Cloth Framer Relationship Specialty Start Date End Date Alfredo Jamison MD PCP - General 07/10/10 04/21/15 documented as of this encounter
--- OUTSIDE RECORDS SUMMARY | 2022-03-12 15:46 | XMS_ITS | Encounter Summary ---
:1950 Author Organization [facility] Address [place] [address] Care Team Providers Name Role Phone Alfredo Jamison MD Primary Care Provider Encounter Details Date Type Department Care Team Description 12/23/2014 Surgery [place] [facility] [place] Mehran Ogden UPPER EUS- ENDOSCOPIC [facility] Kayla [place] [address] [address] [facility] [phone] DR GASTROENTEROLOGY [place], [place] [address] Social History Tobacco Use Types [...] SILVA : 1950 Age: 64 y.o. Address: [address] [place] [phone] (home) Mobile: Telephone Information: Referring Provider: Alfredo [...] ENDOSCOPY performed by Virginia Macdonald MD at [facility] ENDOSCOPY ??? Upper gi endoscopy, biopsy N/A 11/17/2014 UPPER GASTROINTESTINAL ENDOSCOPY,WITH BIOPSY SINGLE OR MULTIPLE performed by Virginia Macdonald MD at [facility] Medications: Prior to Admission medications [...] Visit Pulmonology Sonja Jenkins MD [facility] Pulmonary [place], [place] [address] (Wo rk) documented as of [...] Component Value Ref Test Analysis Performed At [facility] Range Method Time Signature UPPER [facility] PROVATION ENDOSCOPIC Endoscopy ULTRASOUND _ Patient Name: Madie Da Silva ? Procedure Date: 12/23/2014 1:19 PM ? N: [id number] ? Date of : 1950 ? Age: 64 ? Order #: [id number] ? Procedure: ? Upper EUS Indications: ? Common bile duct dilation (acquired ) ? seen on [facility] Providers: ? Mehran Ogden MD, Cassidy Brar ? MD [place], Hesham markham, ? Thelma Hart Referring : ?Alfredo Jamison MD, Vicky Davis , ? DRILL SETUP OPERATOR Medicines: ? Monitored Anesthesia Care Complications: ? [...] PROVATION documented in this encounter Visit Diagnoses Diagnosis Abnormal magnetic resonance cholangiopan creatography (MRCP) documented in this encounter Administered Medications Inactive [...] Procedure) documented in this encounter Care Teams Workers Compensation Claims Analyst Relationship Specialty Start Date End Date Alfredo Jamison MD PCP - General 07/10/10 04/21/15 documented as of this encounter
--- OUTSIDE RECORDS SUMMARY | 2022-03-12 15:46 | XMS_ITS | Encounter Summary ---
:1950 Author Organization [facility] Address [facility] [address] [place] [address] Care Team Providers Name Role Phone Julieta Bonilla Primary Care Provider Reason for Visit Reason Onset Date Comments Medication Refill 08/07/2015 Encounter Details Date Type Department Care Team Description 08/07/2015 Refill [place]ology at [facility] [place] Hesham Dwyer MD [facility] [place] [address] RHEUMATOLOGY DEPT. [phone] [place], [place] [address] (Wo rk) Social History Tobacco [...] [facility] er Pulmonary [place], [place] [address] (Wo rk) documented as of this encounter Visit Diagnoses Not on filedocumented in this encounter Care Teams Funnel Coater Relationship Specialty Start Date End Date Julieta Bonilla PA PCP - General 04/22/15 05/15/[address] [place] [address] documented as of this encounter
--- OUTSIDE RECORDS SUMMARY | 2022-03-12 15:46 | XMS_ITS | Encounter Summary ---
:1950 Author Organization [facility] [place] [address] Care Team Providers Name Role Phone Julieta Bonilla Primary Care Provider Reason for Visit Reason Comments Abdominal Pain Encounter Details Date Type Department Care Team Description 04/22/2015 - Emergency Emergency Department Jeannette High Abd ominal pain, LUQ 04/23/2015 Kiley Frias MD (left upper quadrant) [facility] [address] EMERGENCY MEDICINE [place] [id number] [id number] [phone] Social History Tobacco Use Types Packs/Day Years Used Date Never Smoker Smokeless Tobacco: Never Used Alcohol Use Standard Drinks/Week Comments No 0 (1 standard drink = 0.6 oz pure alcoho l) Sex Assigned at Date Recorded Not on file documented as of this encounter Last Filed Vital Signs Vital Sign Reading Time Taken Comments Blood Pressure 119/55 04/23/2015 1:30 AM EDT Pulse 71 04/23/2015 1:30 AM EDT Temperature 36.7 ??C (98.1 ??F) 04/22/2015 10:30 PM EDT Respiratory Rate 20 04/23/2015 1:30 AM EDT Oxygen Saturation 97% 04/23/2015 1:30 AM EDT Inhaled Oxygen Concentration - - Weight - - Height - - Body Mass Index - - documented in this encounter Discharge Instructions Discharge InstructionsDelta Conrad MD - 04/23/2015 1:29 AM EDT It is unclear what is causing your abdominal pain. Labs and imaging in the Emergency Department do not suggest any acute process that would require surgery or further intervention tonight. Please continue to monitor your symptoms. If you have worsening pain, changing pain, or anything else concerning please return to the emergency department. Please follow up with your primary care doctor this week for further evaluation and to ensure that your symptoms are improving. Be sure to eat and drink as tolerated and return to the emergency department if you are unable to do so. AttachmentsThe following attachments cannot be sent through Care Everywhere. ABDOMINAL PAIN (SCOTTISH)documented in this encounter Medications at Time of Discharge Medication Sig Dispensed Refills Start Date End Date oxyCODONE (ROXICODONE) 5 mg Take 1-2 tablets 20 tablet 0 Tablet by mouth every 4 hours as needed for Pain. No driving, no alcohol desonide (DESOWEN) 0.05 % Prn 0 05/04/2014 Lotion cyanocobalamin, vitamin every 30 days. 0 06/20/20 14 B-12, 1,000 mcg/mL Solution ondansetron (ZOFRAN ODT) 4 Take 1 tablet by 12 tablet 1 01/201503/14/2016 mg Tablet, Rapid Dissolve mouth every 8 hours as needed for Nausea. traMADol (ULTRAM) 50 mg take 1 to 2 180 tablet 1 03/17/2015 06/05/2015 Tablet tablets by mouth every 8 hours if needed for pain omeprazole (PRILOSEC) 20 mg Take 1 capsule [...] MULTIPLE) tablet documented as of this encounter ED Notes Aisha Prince RN - 04/23/2015 1:56 AM EDT Discharge paperwork discussed with patient. Offered opportunity for questions to be asked; non received. Pt AAOx4. NO distress noted at time of discharge. Delta Conrad MD - 04/23/2015 12:10 AM EDT ED RESIDENT FOLLOW-UP NOTE: Time of transfer of care: 12:10am Care transferred from: Dr. Greco Condition at time of transfer: stable Clinical Summary: 64 y.o. old female in the process of being evaluated for LUQ pain of 2 weeks duration, nausea and vomiting. Please see Dr. Medeiros's notes for initial evaluation, assessment and plan. Briefly, s/p exlap for SBO in February presenting with 2 weeks of LUQ abdominal pain. She is passing gas and had BM yesterday. HD stable at time of handoff. Awaiting CT scan Subsequent ED Course: Lactate obtained wnl. Patient re-evaluated found to be stable. CT scan resulted stable since last CT, no acute process, no evidence of SBO. I re-examined the patient and found herto still have LUQ pain though no pain elsewhere in her abd. She had no peritoneal signs of evidence of acute abdomen. I told her results of CT and told her and explained that the etiology of her pain is not clear. I offered her admission to the hospital for pain control and she declined stating that she would rather try to manage her pain at home. I see this as reasonable and explained the need for close follow up with her PCP early next week. She was given strict return precautions should her pain worsen or change in any way. I sent her home with rx for oxycodone and zofran for symptom management.She remained in stable condition in the ED until her son was able to come and pick her up. Final Assessment: LUQ pain Final Plan: discharge home, close PCP f/u. Delta Conrad MD Resident 04/23/15 0621 Aisha Prince RN - 04/22/2015 8:45 PM EDT Assumed care at this time. Jeannette High MD - 04/22/2015 8:28 PM EDT Ashley Da Silva is an 64 y.o. female who presents to the ED with: Chief Complaint Patient presents with ??? Abdominal Pain I saw this patient at 8:28 PM History of Present Illness Ashley Da Silva is a 64 y.o. female with a past history of arthritis, rou-en-y, recently admitted 02/18to 02/23 for ex lap for SBO here today with LUQ pain of 2 weeks duration. Sharp and painful. Nausea and vomiting associated with this. When eating, she feels like food gets stuck under her lower sternum.Pain is not associated with food. She vomits 3-4 times a day (coinciding with eating), notes that it's usually undigested (son reiterates this). She has chosen not to eat instead of vomiting. She has lost 15 pounds in the last month. She does not want to admit in front of her son that she is in a lot of pain, but states privately that she is in 8/10 pain. Of note, was dc'd on cipro for UTI after her exploratory laparotomy, abx changed after sensitivitiescame back, has not had any urinary symptoms since completing treatment. Found to have schatzki ring on EGD in November when being evaluated for dysphagia. Follow-up EGD in Decemberfor evaluation of CBD dilation seen on MRCP did not mention the ring. No evidence of ampullary mass at that time. Denies headaches, changes in vision, shortness of breath, diarrhea/constipation. Review of Systems Constitutional: Positive for appetite change and unexpected weight change. Negative for fever and chills. HENT: Negative. Eyes: Negative. Respiratory: Negative for cough, chest tightness and shortness of breath. Cardiovascular: Negative for chest pain. Gastrointestinal: Positive for nausea, vomiting and abdominal pain. Negative for diarrhea, constipation, blood in stool, abdominal distention and anal bleeding. Genitourinary: Negative for dysuria and difficulty urinating. Musculoskeletal: Negative. Skin: Negative for color change. Neurological: Negative. PMHx, PSHx (ATOD), meds, & allergies reviewed & updated in chart as necessary. Physical Exam Filed Vitals: 04/22/152016 BP: 123/67 Pulse: 70 Temp: 36.8 ??C (98.2 ??F) Resp: 14 Physical Exam Constitutional: She is oriented to person, place, and time. Cachectic appearing, sunken eyes, in moderate distress. Grimacing and holding left side. HENT: Head: Normocephalic and atraumatic. Eyes: Conjunctivae and EOM are normal. Pupils are equal, round, and reactive to light. Neck: Normal range of motion. Cardiovascular: Normal rate and regular rhythm. Pulmonary/Chest: Effort normal and breath sounds normal. Abdominal: Soft. Bowel sounds are normal. She exhibits no distension. There is tenderness. There is guarding. There is no rebound. Musculoskeletal: Normal range of motion. Neurological: She is alert and oriented to person, place, and time. Skin: Skin is warm and dry. No rash noted. ED Course - Patient was evaluated and discussed with Dr. High - Vitals, triage and nursing notes reviewed. - I reviewed labs: BMP - BUN 6, Cr 0.65, otherwise wnl CBC - WBC 6.8, Hgb 12.7, platelets 371 LFTs - AST 25, ALT 17, Alk phos 213, tbili 0.4, bili direct 0.2 UA - SG 1.006, moderate leukocytes (4 WBC) - I reviewed imaging CT abdomen/pelvis w contrast pending - Patient received these treatments: 500 ml NS bolus 0.5mg dilaudid 2050 4mg zofran IV 2130 1.0mg dilaudid 2215 A/P Assessment: Ashley Da Silva is a 64 y.o. female with a past history of maral-en-y, recent ex lap for SBO and EGD documented schatzki's ring who presents with LUQ pain of 2 weeks duration and N/V associated with food. Differential for LUQ pain includes partial obstruction, splenic injury, neoplasm, volvulus, among others. Differential for her nausea and vomiting include gastric inlet obstruction, narrowing of schatzki's ring, complication of maral-en-y, among others. CT abdomen/pelvis pending at time ofsign-out. Overall, she appears highly deconditioned and may need admission for further evaluation ifCT is unrevealing. Signed out at 0015 to Sarath More MD Resident 04/23/15 0019 ED ATTENDING ATTESTATION NOTE The patient was seen in conjunction with Dr. Greco, the resident physician. I have independently performed the guajardo portions of the history and physical exam. I have reviewed the nursing notes, vital signs, and all diagnostic studies personally including labs, imaging studies and EKGs. I have discussed the details of the case with the resident and agree with the assessment and plan as described in the resident note above unless noted otherwise below. Brief Summary: LUQ pain as above with weight loss. Imaging pending at shift change. Dispo pending imaging. Final Assessment: as above. Jeannette High MD 04/23/15 2231 documented in this encounter Miscellaneous Notes ED Triage - Sandhya Thomas RN - 04/22/2015 8:20 PM EDT Pt sts she has been experiencing LUQ pain for about 2 weeks with intermittent low grade fevers. Pt sts she had developed vomiting today denies diarrhea urinary issues. Pt sts she had abd surgery for hernia that impacted her small intestine in February and is concerned this may be associated to the surgery. Pt sts poor appetite over the past week. Pt appear uncomfortable PWD no acute distress. documented in this encounter Plan of Treatment Upcoming Encounters Date Type Specialty Care Team Description 05/28/2022 Appointment Pulmonology 05/28/2022 Office Visit Pulmonology Sonja Jenkins MD [facility] er Pulmonary [place], [place] [address] (Wo rk) documented as of this encounter Procedures Procedure Name Priority Date/Time Associated Comments Diagnosis L-LACTATE2 WHOLE BLOOD Routine 04/23/2015 12:33 R esults for this AM EDT procedure are i n the results section. CT ABDOMEN AND PELVIS STAT 04/22/2015 11:49 Re sults for this W CONTRAST PM EDT procedure are i n the results section. URINALYSIS WITH REFLEX STAT 04/22/2015 9:45 PM Results for this CULTURE EDT procedure are i n the results section. HEMOGRAM STAT 04/22/2015 9:15 PM Results f or this EDT procedure are i n the results section. DIFFERENTIAL, STAT 04/22/2015 9:15 PM Results for this AUTOMATED EDT procedure are i n the results section. GOLD TUBE HOLD STAT 04/22/2015 9:15 PM Results for this EDT procedure are i n the results section. BLUE TUBE HOLD STAT 04/22/2015 9:15 PM Results for this EDT procedure are i n the results section. CBC (WITH DIFF) STAT 04/22/2015 9:15 PM EDT COMPREHENSIVE STAT 04/22/2015 9:15 PM Results for this METABOLIC PANEL EDT procedure ar e in (NON-FASTING) the results section. documented in this encounter Results L-Lactate2 Whole Blood (04/23/2015 12:33 AM EDT) P athologist Signature Lactate WB 1.0 0.5 - 2.2 CERNER mmol/L [employer] Specimen Anatomical Collection Method Collection Time Receive d Time (Source) Location / / Volume Laterality Blood specimen Arterial Draw / 04/23/2015 12:33 2014 (specimen) Unknown AM EDT 12:49 AM EDT Resulting Agency Comment Spec In Lab Delta Conrad MD CHEMISTRY ORDERABLES Performing Organization Address City/State/[place] [address] [facility] [employer] [facility] CT Abdomen & Pelvis With Contrast (04/22/2015 11:49 PM EDT) Anatomical Region Laterality Modality Abdomen, Pelvis Computed Tomography Specimen (Source) Anatomical Collection Method Collection Time Re ceived Time Location / / Volume Laterality 04/22/2015 11:49 PM EDT Impressions 04/23/2015 12:45 AM EDT IMPRESSION: No evidence of small bowel obstruction. Patient is status post Maral-en-Y gastric bypass. The excluded stomach and the biliopancreatic limb are filled with air and enteric contrast suggesting there is a gastro-gastric leak or incomplete s eparation of the gastric remnant from the gastric pouch. These findings are un changed compared to the prior. Status post left ventral abdominal herni a repair with no evidence of recurrence. Similar degree of intrahepatic and commo n biliary ductal dilatation, likely related to postsurgical changes from a R oux-en-Y gastric bypass and cholecystectomy. This report was reviewed by Carlos Steele at 04/23/2015 12:40 AM Film and interpretation reviewed by the attending Narrative 04/23/2015 12:45 AM EDT EXAMINATION: ??CT Abdomen / Pelvis With Contrast CLINICAL HISTORY: ??severe LUQ pain in h x of SBO, N/V with food, sensation of food getting stuck in lower esophagus TECHNIQUE: Helical CT of the abdomen and pelvis was performed following the intravenous administration of contrast. 110 cc of Omnipaque 350 was given. ??Oral contrast was administered. Comparison: 02/17/2015. FINDINGS: Mild dependent bibasilar atelectasis. There is no free intraperitoneal air or fluid. Postsurgical changes are seen from interval mesh repair of a left vent ral abdominal hernia and prior Maral-en-Y gastric bypass. Contrast is seen in the excluded stomach and biliopancreatic limb. Similar degree of distention of th e biliopancreatic limb anastomosis (series 2, image 36). There are no dilat ed loops of bowel. Enteric contrast is seen in the ileocecal junction and cecum . There is stool throughout the nondilated colon. Normal size and enhancement of the liver and spleen. Patient is status post cholecystectomy. Similar degree of intra hepatic and common bile duct dilatation compared to the prior examinations. Thes e findings are likely related to Maral-en-Y gastric bypass. Diffuse fatty atrophy of the pancreas. Adrenal glands are normal. Symmetric size and enhanceme nt of the kidneys without focal lesion. Left-sided nephrolithiasis without obstr uction. No dilatation of the urinary collecting systems. The partially disten ded nonopacified bladder is normal in appearance. No pathologically enlarged l ymph nodes. Normal caliber of the abdominal aorta. Similar appearance of extensive degenera tive disc disease changes at L1-L2 and L2-L3 associated with a focal convex cur vature at these levels. Procedure Note Carlos Steele MD - 04/23/2015 EXAMINATION: CT Abdomen / Pelvis With Co ntrast CLINICAL HISTORY: severe LUQ pain in hx of SBO, N/V with food, sensation of food getting stuck in lower esophagus TECHNIQUE: Helical CT of the abdomen and pelvis was performed following the intravenous administration of contrast. 110 cc of Omnipaque 350 was given. Oral contrast was administered. Comparison: 02/17/2015. FINDINGS: Mild dependent bibasilar atelectasis. There is no free intraperitoneal air or fluid. Postsurgical changes are seen from interval mesh repair of a left vent ral abdominal hernia and prior Maral-en-Y gastric bypass. Contrast is seen in the excluded stomach and biliopancreatic limb. Similar degree of distention of th e biliopancreatic limb anastomosis (series 2, image 36). There are no dilat ed loops of bowel. Enteric contrast is seen in the ileocecal junction and cecum . There is stool throughout the nondilated colon. Normal size and enhancement of the liver and spleen. Patient is status post cholecystectomy. Similar degree of intra hepatic and common bile duct dilatation compared to the prior examinations. Thes e findings are likely related to Maral-en-Y gastric bypass. Diffuse fatty atrophy of the pancreas. Adrenal glands are normal. Symmetric size and enhanceme nt of the kidneys without focal lesion. Left-sided nephrolithiasis without obstr uction. No dilatation of the urinary collecting systems. The partially disten ded nonopacified bladder is normal in appearance. No pathologically enlarged l ymph nodes. Normal caliber of the abdominal aorta. Similar appearance of extensive degenera tive disc disease changes at L1-L2 and L2-L3 associated with a focal convex cur vature at these levels. IMPRESSION IMPRESSION: No evidence of small bowel obstruction. Patient is status post Maral-en-Y gastric bypass. The excluded stomach and the biliopancreatic limb are filled with air and enteric contrast suggesting there is a gastro-gastric leak or incomplete s eparation of the gastric remnant from the gastric pouch. These findings are un changed compared to the prior. Status post left ventral abdominal herni a repair with no evidence of recurrence. Similar degree of intrahepatic and commo n biliary ductal dilatation, likely related to postsurgical changes from a R oux-en-Y gastric bypass and cholecystectomy. This report was reviewed by Carlos Steele at 04/23/2015 12:40 AM Film and interpretation reviewed by the attending Jeannette High MD IMG CT ORDERABLES (ABNORMAL) Urinalysis with microscopic (04/22/2015 9:45 PM EDT) [facility] gist Method Time Signature Glucose UA Negative Negative [...] clinically indicated. Urobilinogen UA Normal Normal mg/dL [facility] MILL [facility] pH UA 6.0 5.0 - 8.0 C[facility]ER MILLENNIUM Blood UA Negative Negative mg/[facility] Ketones UA Negative Negative mg/dL [facility] M[facility] I[facility] Nitrite UA Negative Negative C[facility]ER MILLENNIUM Leukocytes UA Moderate (A) Negative mcL CERNER MIL LENNIUM Appearance UA Clear Clear CERNER MILLENNIU M Spec [place] UA 1.006 1.002 - 1.030 CERNER MIL LENNIUM Color UA Yellow Yellow CERNER MILLENNIUM RBC UA 2 0 - 4 /HPF C[facility]ER MILLENNIUM WBC UA 4 0 - 5 /HPF C[facility]ER MILLENNIUM Squam Epith UA 1 <=4 /HPF CERNER MILLENNI UM Specimen Anatomical Collection Method Collection Time Receive d Time (Source) Location / / Volume Laterality Urine specimen 04/22/2015 9:45 PM 015 9:52 (specimen) EDT PM EDT Resulting Agency Comment Spec In Lab Jeannette High MD URINE ORDERABLES Performing Organization Address City/State/ZIP Code Phon e Number [place] [phone] C[facility] MILLENNIUM Gold Tube HOLD (04/22/2015 9:15 PM EDT) athologist Signature Gold Hold Sample in [facility] lab. MILLENNIUM Specimen Anatomical Collection Method Collection Time Receive d Time (Source) Location / / Volume Laterality Blood specimen Venous Draw / 04/22/2015 9:15 PM 2014 9:22 (specimen) Unknown EDT PM EDT Jeannette High MD CHEMISTRY ORDERABLES Performing Organization Address City/State/ZIP Code Phon e Number [address] C[facility] MILLENNIUM Blue Tube HOLD (04/22/2015 9:15 PM EDT) P athologist Signature Blue Hold Sample in [facility] lab. MILLENNIUM Specimen Anatomical Collection Method Collection Time Receive d Time (Source) Location / / Volume Laterality Blood specimen Venous Draw / 04/22/2015 9:15 PM 2014 9:22 (specimen) Unknown EDT PM EDT Jeannette High MD HEMATOLOGY ORDERABLES Performing Organization Address City/[facility]/ZIP Code Phon e Number [address] CERNER MILLENNIUM (ABNORMAL) Differential, Automated (04/22/2015 9:15 PM EDT) Patholo gist Method Time Signature Neutrophils % 32.2 % C[facility]ER MILLENNIUM Neutr Abs (ANC) 2.19 1.50 - CERNER 6.30 MILLENNIUM x10(3)/mcL Lymphocytes % 58.1 % C[facility] MILLENNIUM Lymphocytes Abs 4.0 (H) 1.0 - 3.6 CERNER x10(3)/mcL MILLENNIUM Monocytes % 6.2 % CERNER MILLENNIUM Monocyte Abs 0.4 0.2 - 1.0 CERNER x10(3)/mcL MILLENNIUM Eosinophils % 2.8 % CERNER MILLENNIUM Eosinophils Abs 0.2 0.0 - 0.5 CERNER x10(3)/mcL MILLENNIUM Basophils % 0.6 % C[facility]ER MILLENNIUM Basophils Abs 0.0 0.0 - 0.2 CERNER x10(3)/mcL MILLENNIUM Immature Gran % 0.10 % CERNER MILLENNIUM [...] Location / / Volume Laterality Blood specimen 04/22/2015 9:15 PM 015 9:22 (specimen) EDT PM EDT Resulting Agency Comment Spec In Lab Jeannette High MD HEMATOLOGY ORDERABLES Performing Organization Address City/[facility]/[place] [address] CERNER MILLENNIUM (ABNORMAL) Hemogram (04/22/2015 9:15 PM EDT) athologist Signature WBC 6.8 4.0 - 10.0 CERNER x10(3)/mcL MILLENNIUM RBC 4.56 3.93 - CERNER 5.22 MILLENNIUM x10(6)/mcL Hemoglobin 12.7 11.2 - CERNER 15.7 gm/dL MILLENNIUM Hematocrit 40.0 34.0 - CERNER 45.0 % MILLENNIUM MCV 87.7 79.0 - CERNER 94.0 fL MILLENNIUM MCH 27.9 26.6 - CERNER 32.2 pg MILLENNIUM MCHC 31.8 (L) 32.0 - CERNER 36.5 gm/dL MILLENNIUM Platelets 371 (H) 145 - 370 CERNER x10(3)/mcL MILLENNIUM RDWSD 47.8 (H) 35.0 - CERNER 46.0 fL MILLENNIUM RDWCV 15.0 (H) 10.9 - CERNER 14.4 % MILLENNIUM MPV 9.1 9.0 - 12.0 CERNER fL MILLENNIUM Specimen Anatomical Collection Method Collection Time Receive d Time (Source) Location / / Volume Laterality Blood specimen 04/22/2015 9:15 PM 015 9:22 (specimen) EDT PM EDT Resulting Agency Comment Spec In Lab Jeannette High MD HEMATOLOGY ORDERABLES Performing Organization Address City/[facility]/[place] [address] CERNER MILLENNIUM (ABNORMAL) Comprehensive metabolic panel (non-fasting) (04/22/2015 9:15 PM EDT) athologist Signature Glucose Lvl 85 65 - 199 CERNER mg/dL MILLENNIUM Comment: Diabetes: >=200 mg/dL plus symp toms BUN 6 (L) 8 - 18 mg/dL CERNER MILLENNIUM Creatinine 0.65 (L) 0.70 - 1.20 mg/dL CERNER MILL ENNIUM Comment: Please note that the pediatric reference intervals supplied above were not validated at [facility]. Results from pediatri c patients should be interpreted in conjunction to the patient's age, height and muscle mass. Sodium 140 135 - 145 mmol/L CERNER NILAY NIUM Potassium 3.8 3.5 - 5.0 mmol/L CERNER NILAY NIUM [...] 10.5 mg/dL CERNER NILAY NIUM Total Protein 7.7 6.1 - 8.0 gm/dL CERNER MIL LENNIUM Albumin 4.1 3.2 - 5.2 gm/dL CERNER MILLENN IUM AST 25 0 - 30 unit/L CERNER MILLENNIU M ALT 17 0 - 30 unit/L CERNER MILLENNIU M Alk Phos 213 (H) 40 - 104 unit/L CERNER MILLENN IUM Total Bilirubin 0.4 0.2 - 1.3 mg/dL CERNER M ILLENNIUM Bili, Direct 0.2 0.0 - 0.3 mg/dL CERNER MILL ENNIUM [...] the following links into your internet browser. [email or web address] Specimen Anatomical Collection Method Collection Time Receive d Time (Source) Location / / Volume Laterality Blood specimen 04/22/2015 9:15 PM 015 9:22 (specimen) EDT PM EDT Resulting Agency Comment Spec In Lab Jeannette High MD CHEMISTRY ORDERABLES Performing Organization Address City/State/[place] [address] [facility] documented in this encounter Visit Diagnoses Diagnosis Abdominal pain, LUQ (left upper quadrant ) Abdominal pain, left upper quadrant documented in this encounter Administered Medications Inactive Administered Medications - up to 3 most recent administrations Medication Order MAR Action Action Date Dose Rate Site HYDROmorphone (DILAUDID) injection Given 04/22/2015 9:41 PM EDT 0.5 mg 0.5 mg 0.5 mg, Intravenous, ONCE, 1 dose, On 04/22/15 at 2050, STAT HYDROmorphone (DILAUDID) injection 0.5 m g Given 04/23/2015 1:36 AM EDT 0.5 mg 0.5 mg, Intravenous, ONCE, 1 dose, On 04/23/15 at 0117, STAT HYDROmorphone (DILAUDID) injection 1 mg Given 04/22/2015 10:16 PM EDT 1 mg 1 mg, Intravenous, ONCE, 1 dose, On 04/22/15 at 2217, STAT iohexol (OMNIPAQUE) 350 mg/mL solution Given 04/22/2015 11:44 PM EDT 38,500 mg 38,500 mg 38,500 mg (110 mL), Intravenous, ONCE PRN, 1 dose, Starting on 04/22/15 at 2338, Until 04/22/15 at 2344, Per Protocol, Routine iohexol (OMNIPAQUE) radiology oral prep (50 Given 12/2014 9:31 PM EDT 240 mLs mL of oral contrast) 240 mL 240 mL, Oral, ONCE, On 04/22/15 at 2131, 1 dose, 8 ounce cup = 240 mL of contrast 2 hours before scan as tolerated. The patient should not eat food or drink any other liquids during the entire period in which they are drinking the contrast. Mix 1 bottle (50 mL) of Omnipaque 350 with 1 liter (1,000 mL) non-carbonated beverage (preferably water). Close cover and shake vigorously and then refrigerate, if desired. Dispose of any excess preparation in a sink. Properly dispose of container. iohexol (OMNIPAQUE) radiology oral prep (50 Given 12/2014 10:45 PM EDT 240 mLs mL of oral contrast) 240 mL 240 mL, Oral, ONCE, On 04/22/15 at 2245, 1 dose, 8 ounce cup = 240 mL of contrast 1 hours before scan as tolerated. The patient should not eat food or drink any other liquids during the entire period in which they are drinking the contrast. Mix 1 bottle (50 mL) of Omnipaque 350 with 1 liter (1,000 mL) non-carbonated beverage (preferably water). Close cover and shake vigorously and then refrigerate, if desired. Dispose of any excess preparation in a sink. Properly dispose of container. ondansetron (ZOFRAN) injection 4 mg Given 04/22/2015 9:39 PM EDT 4 mg 4 mg, Intravenous, ONCE, 1 dose, On 04/22/15 at 2132, STAT sodium chloride 0.9% 500 mL IV bolus Given 04/22/2015 9:38 PM EDT Intravenous, ONCE, 1 dose, On 04/22/15 at 2050 documented in this encounter Active and Recently Administered Medications Times are shown in EDT. Scheduled Medication Order 04/21/2015 04/22/2015 04/23/2015 HYDROmorphone (DILAUDID) injection 0.5 mg (COMPLETED) 2140 (Given - Provider: Aisha Prince RN) 0.5 mg, Intravenous, ONCE, 1 dose, 04/22/15 at 2050, STAT HYDROmorphone (DILAUDID) injection 0.5 mg (COMPLETED) 0136 (Given - Provider: Aisha Prince RN) 0.5 mg, Intravenous, ONCE, 1 dose, 9/6/15 at 0117, STAT HYDROmorphone (DILAUDID) injection 1 mg (COMPLETED) 2215 (Given - Provider: Aisha Prince RN) 1 mg, Intravenous, ONCE, 1 dose, 04/22/15 at 2217, STAT iohexol (OMNIPAQUE) radiology oral prep (50 mL of oral contrast) 240 mL (COMPLETED) 2130 (Given - Provider: Aisha chapman RN) 240 mL, Oral, ONCE, 1 dose, 04/22/15 a t 2130, 8 ounce cup = 240 mL of contrast 2 hours before scan as tolerated. The patient should not eat food or drink any other liquids during the entire period in which they are drinking the contrast. Mi x 1 bottle (50 mL) of Omnipaque 350 with 1 liter (1,000 mL) non-carbonated beverage (preferably water). Close cover and shake vigorously and then refrigerate, if desired. Dispose of any excess preparati on in a sink. Properly dispose of container., Routine iohexol (OMNIPAQUE) radiology oral prep (50 mL of oral contrast) 240 mL (COMPLETED) 2244 (Given - Provider: Aisha chapman RN) 240 mL, Oral, ONCE, 1 dose, 04/22/15 a t 2244, 8 ounce cup = 240 mL of contrast 1 hours before scan as tolerated. The patient should not eat food or drink any other liquids during the entire period in which they are drinking the contrast. Mi x 1 bottle (50 mL) of Omnipaque 350 with 1 liter (1,000 mL) non-carbonated beverage (preferably water). Close cover and shake vigorously and then refrigerate, if desired. Dispose of any excess preparati on in a sink. Properly dispose of container., Routine ondansetron (ZOFRAN) injection 4 mg (COMPLETED) 2138 (Given - Provider: Aisha Prince RN) 4 mg, Intravenous, ONCE, 1 dose, 04/22/15 at 2131, STAT sodium chloride 0.9% 500 mL IV bolus (COMPLETED) 2137 (Given - Provider: Aisha Prince, SIENA) Intravenous, ONCE, 1 dose, 04/22/15 at 2050 PRN Medication Order 04/21/2015 04/22/201504/23/2015 iohexol (OMNIPAQUE) 350 mg/mL solution 38,500 mg (COMPLETED) 2344 (Given - Provider: Gale Yepez) 38,500 mg (110 mL), Intravenous, ONCE AL N, 1 dose, Starting 04/22/15 at 2338, Until 04/22/15 at 2344, Per Protocol, Routine documented in this encounter Care Teams Mammalogy Teacher Relationship Specialty Start Date End Date Julieta Bonilla PA PCP - General 04/22/15 05/15/17 [address] [place] [address] documented as of this encounter
--- OUTSIDE RECORDS SUMMARY | 2022-03-12 15:46 | XMS_ITS | Encounter Summary ---
:1950 Author Organization [facility] [address] Care Team Providers Name Role Phone Alfredo Jamison MD Primary Care Provider Reason for Visit Reason Comments Wound Check Encounter Details Date Type Department Care Team Description 03/02/2015 Clinical Support General Surgery at [facility] for staple [facility] [place] [address] Social History Tobacco Use Types Packs/Day Years Used Date Never Smoker Smokeless Tobacco: Never Used Alcohol Use Standard Drinks/Week Comments No 0 (1 standard drink = 0.6 oz pure alcoho l) Sex Assigned at Date Recorded Not on file documented as of this encounter Progress Notes Randi Wheatley RN - 03/02/2015 10:41 AM EDT Staple Removal: Date: 03/02/2015 Time:10:41 AM The patient was identified as Ashley Da Silva,she had surgery with Dr. Duff. Ashley's incision appears to be well approximate with reactive erythema at the staple sites. There is no sign of infection. her gregorio were removed with ease. Mastisol was applied to the incision edges and allowed to dry. Steri-strips were applied. Plan of Care: Signs and symptoms of infection were reviewed with Ashley,she was instructed to keep them in place for 7- 10 days and how to remove them. Ashley was able to verbalize her understanding of theabove instructions. Ashley notes some abdominal discomfort,noting she has constipation. She is taking stool softeners and laxatives to treat this. She will follow up as scheduled. documented in this encounter Plan of Treatment Upcoming Encounters Date Type Specialty Care Team Description 05/28/2022 Appointment Pulmonology 05/28/2022 Office Visit Pulmonology Sonja Jenkins MD [facility] er Pulmonary Medici [place] [phone] (Wo rk) documented as of this encounter Visit Diagnoses Diagnosis Encounter for staple removal Encounter for removal of sutures documented in this encounter Care Teams Urban Forester Relationship Specialty Start Date End Date Alfredo Jamison MD PCP - General 07/10/10 04/21/15 documented as of this encounter
--- OUTSIDE RECORDS SUMMARY | 2022-03-12 15:47 | XMS_ITS | Encounter Summary ---
:1950 Author Organization [facility] Address [address] [place] [address] Care Team Providers Name Role Phone Aflredo Jamison MD Primary Care Provider Reason for Visit Reason Comments Right Hip Pain Encounter Details Date Type Department Care Team Description 08/25/2013 Office Visit Orthopaedics at [facility], DR KAUR Pain in right hip [facility] Kayla khan (Primary Dx) [place] [address] Social History Tobacco Use Types Packs/Day Years Used Date Never Smoker Smokeless Tobacco: Never Used Alcohol Use Standard Drinks/Week Comments No 0 (1 standard drink = 0.6 oz pure alcoho l) Sex Assigned at Date Recorded Not on file documented as of this encounter Last Filed Vital Signs Vital Sign Reading Time Taken Comments Blood Pressure 123/67 08/25/2013 3:42 PM EST Pulse 75 08/25/2013 3:42 PM EST Temperature - - Respiratory Rate - - Oxygen Saturation - - Inhaled Oxygen Concentration - - Weight 65.8 kg (145 lb) 08/25/2013 3:42 PM EST Height 152.4 cm (5') 08/25/2013 3:42 PM EST Body Mass Index 28.32 08/25/2013 3:42 PM EST documented in this encounter Progress Notes Hesham Muir PA - 2013 9:28 AM EST HISTORY OF PRESENT ILLNESS: 63-year-old white female returns. She has had trouble with her hips previously. She has a long history of arthritic problems. She has been on tramadol for the past 15 years for hip and low back complaints. She has had no injuries. She previously has had injections previously with good results. She would like to have an injection to help with her current symptoms Questionnaire Responses: myD-H Hip & Knee 08/25/2013 MODEMS Expectation - MODEMS Satisfaction 100 VR12 - Physical Component Summary 24.54 VR12 - Mental Component Summary 48.9 PROMIS-10 General Health Good PROMIS-10 Quality of Life Very Good PROMIS-10 Physical Health Fair PROMIS-10 Mental Health Very Good PROMIS-10 Social Activity and Relationship Satisfaction Very Good PROMIS-10 Social Roles at Home and Work Fair PROMIS-10 Everyday Physical Activities A little PROMIS-10 Anxious or Depressed last 7 days Sometimes PROMIS-10 Fatigue last 7 days Severe PROMIS-10 Pain last 7 days 8 PROMIS PHYSICAL HEALTH SCORE (range 16-68) 29.6 PROMIS MENTAL HEALTH SCORE (range 21-68) 50.8 Arthritis Ladder - Hip - PHYSICAL EXAMINATION: Ambulatory without antalgia or assist. When supine, leg lengths are equal. Calves soft and nontender without edema. Pedal pulses intact and equal. Passive ROM of the hips is well tolerated though I am able to reproduce pain with extreme flexion and internal rotation. No focal motor or sensory deficits to the LEs. X-rays: Similar appearance of medial joint space narrowing on the right, with acetabular sclerosis and mild productive changes, with smooth femoral head contour. No subchondral cystic changes or erosive changes are seen. Proliferative change by the greater trochanter, as before. Minimal degenerative changes / arthropathy by the left hip, as on prior. Mild degenerative changes of the sacroiliac joints appear stable. PLAN: We discussed her symptoms, I think her x-rays underestimate the amount of degenerative change in the hips. We'll plan to try and have her hip injected which has been therapeutic previously. We'llsee her again as needed. documented in this encounter Plan of Treatment Upcoming Encounters Date Type Specialty Care Team Description 05/28/2022 Appointment Pulmonology 05/28/2022 Office Visit Pulmonology Sonja Jenkins MD [facility] Pulmonary Medici [place] [address] (Wo rk) documented as of this encounter Visit Diagnoses Diagnosis Pain in right hip - Primary Pain in joint, pelvic region and thigh documented in this encounter Care Teams Tobacco Hanger Relationship Specialty Start Date End Date Alfredo Jamison MD PCP - General 07/10/10 04/21/15 documented as of this encounter
--- OUTSIDE RECORDS SUMMARY | 2022-03-12 15:47 | XMS_ITS | Encounter Summary ---
:1950 Author Organization [facility] [place] [address] Care Team Providers Name Role Phone Alfredo Jamison MD Primary Care Provider Reason for Referral Consultation (Routine) - Closed Specialty Diagnoses / Procedures Referred By Contact Refer red To Contact Gastroenterology Diagnoses Abdominal pain, RUQ (right upper quadrant) Hesham Dwyer MD [facility] [place] [address] [place] [address] Phone: Fax: Referral ID Status Reason Start Date Expiration Date Visits V isits Requested Authorized [id number] Closed Consult, 08/29/2014 08/29/2015 1 1 Test & Treat Encounter Details Date Type Department Care Team Description 08/29/2014 Orders Only Rheumatology at [facility] Hesham Dwyer Abdominal pain, RUQ [facility] MD Nell (right upper [facility] quadrant) [place] [address] RHEUMATOLOGY DEP [place], [place] [address] (Wo rk) Social History Tobacco [...] Visit Pulmonology Sonja Jenkins MD [facility] er Pulmonary Medici [place], [place] [address] (Wo rk) Scheduled Referrals Name Type Priority Associated Order Schedule Diagnoses Referral to Outpatient Routine Abdominal pain, Ordered: Gastroenterology Referral RUQ (right upper 015 quadrant) documented as of this encounter Visit Diagnoses Diagnosis Abdominal pain, RUQ (right upper quadran t) Abdominal pain, right upper quadrant documented in this encounter Care Teams Department Chairperson Relationship Specialty Start Date End Date Alfredo Jamison MD PCP - General 07/10/10 04/21/15 documented as of this encounter
--- OUTSIDE RECORDS SUMMARY | 2022-03-12 15:47 | XMS_ITS | Encounter Summary ---
:1950 Author Organization [facility] [place] [address] Care Team Providers Name Role Phone Alfredo Jamison MD Primary Care Provider Encounter Details Date Type Department Care Team Description 05/27/2013 Orders Only Orthopaedics at [facility] Lloyd Rodriguez, Right hip pain [facility] (Primary Dx) [place] [address] ORTHOPAEDIC SURGERY [place], [place] [address] Social History Tobacco Use Types [...] MD [facility] er Pulmonary Mediczion [place], [place] [address] (Wo rk) documented as of this encounter Results XR pelvis and lateral hip (11/17/2013 1:53 PM EDT) Anatomical Region Laterality Modality Pelvis, Hip N/A Radiographic Imaging Specimen (Source) Anatomical Collection Method Collection Time Re ceived Time Location / / Volume Laterality 11/17/2013 1:53 PM EDT Narrative 11/17/2013 3:25 PM EDT Examination PELVIS+LATERAL HIP/RIGHT Clinical History R HIP PAIN Comparison 08/25/2013. Technique AP pelvis and frogleg lateral view right hip. Findings The patient is status post pelvic surger y. ??The hip joints appear well preserved, minimal osteophytes present. ??Stable findings. ??SI joints appear normal. ??Prominent lateral osteophytes at L4-L5 on the left. ??No periarticular calcifications noted. Impression Essentially normal hips for age. ??Moder ate degenerative disc disease at L4-L5. ?? Status post pelvic surgery. Procedure Note Lars Mariano MD - 11/17/2013Formatt ing of this note might be different from the original. Examination PELVIS+LATERAL HIP/RIGHT Clinical History R HIP PAIN Comparison 08/25/2013. Technique AP pelvis and frogleg lateral view right hip. Findings The patient is status post pelvic surger y. The hip joints appear well preserved, minimal osteophytes present. Stable findings. SI joints appear normal. Prominent lateral osteophytes at L4-L5 on the left. No periarticular calcifications noted. Impression Essentially normal hips for age. Moderat e degenerative disc disease at L4-L5. Status post pelvic surgery. Lloyd Rodriguez MD IMG DX ORDERABLES documented in this encounter Visit Diagnoses Diagnosis Right hip pain - Primary Pain in joint, pelvic region and thigh Right hip pain Pain in joint, pelvic region and thigh documented in this encounter Care Teams Chief Fundraising Officer Relationship Specialty Start Date End Date Alfredo Jamison MD PCP - General 07/10/10 04/21/15 documented as of this encounter
--- OUTSIDE RECORDS SUMMARY | 2022-03-12 15:47 | XMS_ITS | Encounter Summary ---
:1950 Author Organization [facility] Address [facility] [place] [address] Care Team Providers Name Role Phone Alfredo Jamison MD Primary Care Provider Reason for Visit Reason Comments GI Problem Encounter Details Date Type Department Care Team Description 11/10/2014 Office Visit Gastroenterology at [facility] Vicky Davis Abdominal pain, RUQ (right u pper quadrant); [facility] Kayla Campa APRN Epigastric pain; [place] [address] [facility] Gastroesophageal reflux dise ase without esophagitis; [phone] of the abdomen; [place], [place] Rib pain on rig ht side [id number] Social History Tobacco Use Types Packs/Day Years Used Date Never Smoker Smokeless Tobacco: Never Used Alcohol Use Standard Drinks/Week Comments No 0 (1 standard drink = 0.6 oz pure alcoho l) Sex Assigned at Date Recorded Not on file documented as of this encounter Last Filed Vital Signs Vital Sign Reading Time Taken Comments Blood Pressure 145/77 11/10/2014 2:43 PM EDT Pulse 80 11/10/2014 2:43 PM EDT Temperature - - Respiratory Rate - - Oxygen Saturation - - Inhaled Oxygen Concentration - - Weight 64.4 kg (142 lb) 11/10/2014 2:43 PM EDT Height 154.9 cm (5' 1) 11/10/2014 2:43 PM EDT Body Mass Index 26.83 11/10/2014 2:43 PM EDT documented in this encounter Patient Instructions Patient InstructionsVicky Davis APRN - 11/10/2014 2:47 PM EDT 1. MRCP to evaluate 2. Barium swallow with bagel 3. Upper endoscopy with biopsies 4. Lab work today and will call if results are abnormal 5. Gastroparesis diet and copy provided 6. Recommend eating smaller more frequent 5-6 low fat meals per day 7. Prilosec (omeprazole) 20 mg daily on an empty stomach 30 minutes before breakfast 8. Bentyl (dicyclomine) 10 mg every 6 hours as needed 9. Chest x-ray today 10. Follow up 4-5 months Vicky Davis CONCEPT ARTIST [phone] documented in this encounter Progress Notes Vicky Davis APRN - 11/10/2014 2:00 PM EDT Subjective: Patient ID: Ashley Da Silva is a 64 y.o. woman who presents for further evaluation of her gastrointestinal symptoms at the request of Dr Jamison. HPI Comments: Ashley Da Silva is a pleasant 64 year old woman with a PMHx significant for gastric bypass 1994, hysterectomy, cholecystectomy, multiple musculoskeletal problems, including widespread osteoarthritis and chronic pain of the neck and low back who presents for consultation of chronic abdominalpain. She reports a long standing history of chronic RUQ and epigastric abdominal throbbing pain but symptoms have worsened in the past six months. She reports that RUQ abdominal pain wraps around her lateral and posterior lower rib cage. Periodically the pain radiates up into her chest. Chest feels sore totouch. The pain is constant and present every day. She reports that movements such as bending, twisting or lifting things exacerbates the pain as well as different positions exacerbate the pain. Layingflat puts pressure on her back resulting in causing pain on her right side. She reports not wanting to wear a bra since its applies pressure to her right lower rib case. She reports that epigastric andRUQ pain tend to be worse postprandially. She feels bloated and notes a lot of gas after eating. She denies fevers, chills or night sweats. No rashes, hives or new joint pain. She reports that after follow up visit with Dr Dwyer on 08/25/2014, lab work was obtained on 08/25/2014:CBC wnl; CMP wnl; amylase 53. CT A/P 08/25/2014: 1. Moderate to marked intra-hepatic and extrahepatic bile duct dilatation, common bile duct measures 15 mm. No obstructing lesion seen. 2. Status post surgery of the upper stomach and perisplenic region. 3. Tiny calculus left lower pole kidney, 3 mm. She reports rare heartburn. Periodically belches and notes some acid taste into her chest. Sometimes it feels like my food gets stuck in my stomach if I eat to much. She report early satiety and postprandial fullness. She reports periodic regurgitation secondary to over eating. She reports that pasta and ice cream comes back up. She denies nocturnal symptoms. She reports dysphagia to solids and medications for the past year. She reports feeling the hang up in chest area. She has required the heimleich maneuver periodically by her family. She has had to cut her food into small pieces. She will drink fluids to relieve the lodged food bolus. She admits to having to induce vomiting to relieve the lodged food bolus. She reports having a formed bowel movement every day. No melena, hematochezia, rectal or anal pain. She reports that last colonoscopy was 10-15 years ago and was normal per patient (no reports). She reports losing 8 lbs over the last several weeks. No food allergies or intolerances. NSAID's. Denies chest pain, ENT concerns, odynophagia, nausea, vomiting, pre prandial symptoms or lower abdominal pain. Review of Systems Constitutional: Positive for appetite change (See HPI) and unexpected weight change (See HPI). Negative for fever, chills, diaphoresis, activity change and fatigue. HENT: Positive for trouble swallowing (See HPI). Negative for congestion, dental problem, drooling, ear discharge, ear pain, facial swelling, hearing loss, mouth sores, nosebleeds, postnasal drip, rhinorrhea, sinus pressure, sneezing, sore throat, tinnitus and voice change. Respiratory: Negative. Cardiovascular: Negative. Gastrointestinal: See HPI Endocrine: Negative. Musculoskeletal: Positive for back pain (H/o lumbar degenerative disc disease and lumbosacral spondylosis that was being treated with narcotics. ), arthralgias (H/o generalized osteoarthrosis and R hippain. ) and neck pain (H/o degenerative arthritis of the cervical spine. ). Negative for myalgias, joint swelling, gait problem and neck stiffness. Skin: Negative. Allergic/Immunologic: Negative. Neurological: Negative. Hematological: Negative. Psychiatric/Behavioral: Negative. Allergies Allergen Reactions ??? Cefoxitin Sodium Anaphylaxis SHORTNESS OF BREATH, RESP. DISTRESS ??? Dextrose 5 % In Water Anaphylaxis SHORTNESS OF BREATH, RESP. DISTRESS ??? Sulfa (Sulfonamide Antibiotics) Anaphylaxis SHORTNESS OF BREATH, RASH ??? Valdecoxib Rash Diffuse rash ??? Cefoxitin Current Outpatient Prescriptions on File Prior to Visit Medication Sig Dispense Refill ??? desonide (DESOWEN) 0.05 % Lotion Prn 0 ??? cyanocobalamin, vitamin B-12, 1,000 mcg/mL Solution every 30 days. 0 ??? traMADol (ULTRAM) 50 mg Tablet take 1-2 tablets by mouth every 8 hours if needed for pain 180 tablet 5 ??? amitriptyline (ELAVIL) 50 mg Tablet Take 1 tablet by mouth nightly. 30 tablet 2 ??? multivitamin (DAILY MULTIPLE) tablet ??? [DISCONTINUED] OXYcodone-acetaminophen (PERCOCET) 10-325 mg per tablet Take 1 tablet by mouth every 8 hours as needed for Pain. 30 tablet 0 No current facility-administered medications on file prior to visit. Past Medical History Diagnosis Date ??? Chronic back pain ??? Chronic hip pain Right ??? Arthritis ??? B12 deficiency Past Surgical History Procedure Laterality Date ??? Hysterectomy, total abdominal ??? Cholecystectomy 2008 ??? Gastrectomy 1993 ??? Tonsillectomy History Social History ??? Marital Status: Spouse Name: N/A Number of Children: N/A ??? Years of Education: N/A Occupational History ??? Not on file. Social History Main Topics ??? Smoking status: Never Smoker ??? Smokeless tobacco: Never Used ??? Alcohol Use: No ??? Drug Use: No ??? Sexual Activity: Not on file Other Topics Concern ??? Not on file Social History Narrative FMHx: no h/o colon or esophageal cancer; IBD; celiac disease; liver or pancreatic disease Brother: esophageal cancer at age 65 Vital Signs: BP 145/77; P 80; Wt 142 lbs; Ht 5'1 Objective: Physical Exam Constitutional: She is oriented to person, place, and time. She appears well- developed and well-nourished. No distress. HENT: Head: Normocephalic and atraumatic. Mouth/Throat: Oropharynx is clear and moist. No oropharyngeal exudate. Eyes: Conjunctivae and EOM are normal. Pupils are equal, round, and reactive to light. Right eye exhibits no discharge. Left eye exhibits no discharge. No scleral icterus. Neck: Normal range of motion. Neck supple. No JVD present. No tracheal deviation present. No thyromegaly present. Cardiovascular: Normal rate, regular rhythm, normal heart sounds and intact distal pulses. Exam reveals no gallop and no friction rub. No murmur heard. Pulmonary/Chest: Effort normal and breath sounds normal. No stridor. No respiratory distress. She has no wheezes. She has no rales. She exhibits no tenderness. Abdominal: Soft. Bowel sounds are normal. She exhibits no distension and no mass. There is tenderness (RUQ and epigastric tenderness on palpation. ). There is no rebound and no guarding. No hepatosplenomegaly. No succussion splash. No epigastric bruit. Old midline abdominal scar from previous surgery. Genitourinary: Rectal exam deferred. Lymphadenopathy: She has no cervical adenopathy. Neurological: She is alert and oriented to person, place, and time. No cranial nerve deficit. Skin: Skin is warm and dry. No rash noted. She is not diaphoretic. No erythema. No pallor. Psychiatric: She has a normal mood and affect. Her behavior is normal. Judgment and thought content normal. Vitals reviewed. Assessment and Plan: Ashley Da Silva is a pleasant 64 year old woman with a PMHx significant for gastric bypass 1994, hysterectomy, cholecystectomy, multiple musculoskeletal problems, including widespread osteoarthritis and chronic pain of the neck and low back who presents for consultation of chronic abdominal pain. The etiology of her chronic RUQ and epigastric abdominal pain is unclear.The CT A/P showed a mod- marked dilated CBD 15 mm and no pancreatitis. Her lab work revealed normal LFT's and amylase. Recommend proceeding with MRCP to evaluate CBD, consider EUS pending MRCP findings. Will obtain lab work today including LFT's, amylase and lipase. EGD with biopsies given constellation of symptoms but if MRCP shows any abnormality then will include EUS to EGD order. Recommend the gastroparesis diet and eating smaller more frequent smaller 5-6 low fat meals. She can use Bentyl prn. Recommend Prilosec 20 mg qd. She is amenable to this. 2. Dysphagia: question mechanical obstruction such as stricture or esophageal dysmotility. Discussedthe etiology, pathophysiology, diagnostic tests and treatment of dysphagia. Recommend EGD with biopsies. Will obtain barium swallow with bagel to evaluate for hang up. If work up unrevealing then consider esophageal manometry to r/o esophageal dysmotility. Await results for further management. 3. Colon cancer screening: last colonoscopy was >10 years ago. She can either follow up with PCP to have done closer to home or consider performing at [facility]. I did my best to answer all of her questions. The following plan was formulated. Plan: 1. MRCP; consider EUS 2. Barium swallow with bagel 3. Upper endoscopy with biopsies 4. Lab work today and will call if results are abnormal 5. Gastroparesis diet and copy provided 6. Recommend eating smaller more frequent 5-6 low fat meals per day 7. Prilosec (omeprazole) 20 mg qd on an empty stomach 30 minutes before breakfast 8. Bentyl (dicyclomine) 10 mg QID prn 9. Chest x-ray today 10. Follow up 4-5 months Patient understands and is agreeable to the above plan. Written instructions provided. I spent a total of 55 minutes face to face with this patient; 30 minutes were spent counseling the patient in the medical problems described above. Thank you for the referral, Vicky Davis APRN Section of Gastroenterology and Hepatology [place] [phone] documented in this encounter Plan of Treatment Upcoming Encounters Date Type Specialty Care Team Description 05/28/2022 Appointment Pulmonology 05/28/2022 Office Visit Pulmonology Sonja Jenkins MD [facility] [place], [place] [address] (Wo rk) Scheduled Orders Name Type Priority Associated Diagnoses Order S chedule UPPER GI ENDOSCOPY Procedures Routine Abdominal pain, RUQ (r ight Ordered: 11/10/2014 upper quadrant) Epigastric pain Gastroesophageal reflux disease without esophagitis documented as of this encounter Procedures Procedure Name Priority Date/Time Associated Comments Diagnosis LIPASE Routine 11/10/2014 4:40 PM Abdominal pain, RUQ Re sults for this EDT (right upper procedure are i n quadrant) the results Epigastric pain section. AMYLASE Routine 11/10/2014 4:40 PM Abdominal pain, RUQ Re sults for this EDT (right upper procedure are i n quadrant) the results Epigastric pain section. COMPREHENSIVE Routine 11/10/2014 4:40 PM Abdominal pain, RUQ R esults for this METABOLIC PANEL EDT (right upper procedure ar e in (NON-FASTING) quadrant) the results Epigastric pain section. documented in this encounter Results MRI cholangiopancreatography (11/15/2014 8:00 PM EDT) Anatomical Region Laterality Modality Magnetic Resonance Specimen (Source) Anatomical Collection Method Collection Time Re ceived Time Location / / Volume Laterality 11/15/2014 8:00 PM EDT Impressions 11/16/2014 8:34 AM EDT IMPRESSION: Dilated intra and extrahepatic biliary t ree without choledocholithiasis. Abrupt caliber change of the distal CBD proxima l to the ampulla. No surrounding mass is identified either MRCP or CT scan. Of note, on limited evaluation of the ab domen performed as part of a chest CT scan 2003, left intrahepatic biliary aye ryan dilation was evident. It is possible this finding indicates a benign distal C BD stricture. Narrative 11/16/2014 8:34 AM EDT EXAMINATION: MR Cholangiopancreatography CLINICAL HISTORY: Chronic RUQ abdominal, epigastric pain, CBD [address] A/P, normal LFT's. ?? ?CBD stricture, mass, i nflammation, choledocholithiasis s/p cholecystectomy, ??s/p gastric bypass TECHNIQUE: 3D-MRCP, axial and coronal 2D MRCP, axial T2 fast (turbo) spin-echo with fat saturation, axial 2D T1 weighte d in/out phase. COMPARISON: CT scan abdomen August 25 and imaged portions of the upper abdomen performed as part of CT scan of the chest of February 18, 2004 FINDINGS: Bile ducts: The common bile duct measure s 15mm. Intrahepatic bile ducts are dilated and smooth-walled. No intralumin al filling defects abrupt changing caliber of the distal CBD proximal to th e ampulla. No mural thickening. No mass is identified at Limited imaging perform ed as part of MRCP or prior CT scan. On axial reformatted acquisition, the nondi lated pancreatic duct either inserts at the ampulla central to the CBD stenosis or has a separate insertion. Gallbladder: Absent ? Liver: Normal size and signal intensity. ? Pancreas: Normal signal intensity Pancreatic duct: Normal caliber and conf igurations Spleen: Normal size and signal intensity Adrenal glands: Normal Kidneys: Normal Procedure Note Kaylie Ferris MD - 11/16/2014 EXAMINATION: MR Cholangiopancreatography CLINICAL HISTORY: Chronic RUQ abdominal, epigastric pain, CBD [address] A/P, normal LFT's. ?CBD stricture, mass, infl ammation, choledocholithiasis s/p cholecystectomy, s/p gastric bypass TECHNIQUE: 3D-MRCP, axial and coronal 2D MRCP, axial T2 fast (turbo) spin-echo with fat saturation, axial 2D T1 weighte d in/out phase. COMPARISON: CT scan abdomen August 25 and imaged portions of the upper abdomen performed as part of CT scan of the chest of February 18, 2004 FINDINGS: Bile ducts: The common bile duct measure s 15mm. Intrahepatic bile ducts are dilated and smooth-walled. No intralumin al filling defects abrupt changing caliber of the distal CBD proximal to th e ampulla. No mural thickening. No mass is identified at Limited imaging perform ed as part of MRCP or prior CT scan. On axial reformatted acquisition, the nondi lated pancreatic duct either inserts at the ampulla central to the CBD stenosis or has a separate insertion. Gallbladder: Absent ? Liver: Normal size and signal intensity. ? Pancreas: Normal signal intensity Pancreatic duct: Normal caliber and conf igurations Spleen: Normal size and signal intensity Adrenal glands: Normal Kidneys: Normal IMPRESSION IMPRESSION: Dilated intra and extrahepatic biliary t ree without choledocholithiasis. Abrupt caliber change of the distal CBD proxima l to the ampulla. No surrounding mass is identified either MRCP or CT scan. Of note, on limited evaluation of the ab domen performed as part of a chest CT scan 2003, left intrahepatic biliary aye ryan dilation was evident. It is possible this finding indicates a benign distal C BD stricture. Moises Crow MD IMG MRI ORDERABLES Lipase (11/10/2014 4:40 PM EDT) athologist Signature Lipase 16 0 - 60 CERNER unit/L MILLENNIUM Specimen Anatomical Collection Method Collection Time Receive d Time (Source) Location / / Volume Laterality Blood specimen 11/10/2014 4:40 PM 015 4:50 (specimen) EDT PM EDT Resulting Agency Comment Spec In Lab Moises Crow MD CHEMISTRY ORDERABLES Performing Organization Address [facility] Phon e Number [address] CERNER MILLENNIUM Amylase (11/10/2014 4:40 PM EDT) athologist Signature Amylase 60 28 - 100 CERNER unit/L MILLENNIUM Specimen Anatomical Collection Method Collection Time Receive d Time (Source) Location / / Volume Laterality Blood specimen 11/10/2014 4:40 PM 015 4:50 (specimen) EDT PM EDT Resulting Agency Comment Spec In Lab Moises Crow MD CHEMISTRY ORDERABLES Performing Organization Address [facility] [place] [address] CERNER MILLENNIUM Comprehensive metabolic panel (non-fasting) (11/10/2014 4:40 PM EDT) athologist Signature Glucose Lvl 103 60 - 199 CERNER mg/dL MILLENNIUM Comment: Diabetes: >=200 mg/dL plus symp toms BUN 9 8 - 18 mg/dL CERNER MILLENNIUM Creatinine 0.82 0.70 - 1.20 mg/dL CERNER MILL ENNIUM Comment: Please note that the pediatric reference intervals supplied above were not validated at [facility]. Results from pediatri c patients should be interpreted in conjunction to the patient's age, height and muscle mass. Sodium 141 135 - 145 mmol/L CERNER NILAY NIUM Potassium 4.1 3.5 - 5.0 mmol/L CERNER NILAY NIUM [...] - 5.2 gm/dL CERNER MILLENN IUM AST 22 0 - 30 unit/L CERNER MILLENNIU M ALT 10 0 - 30 unit/L CERNER MILLENNIU M Alk Phos 86 40 - 104 unit/L CERNER MILLENN IUM [...] the following links into your internet browser. http://[employer]/DHnkdep http://[employer]/DHMCnkf Specimen Anatomical Collection Method Collection Time Receive d Time (Source) Location / / Volume Laterality Blood specimen 11/10/2014 4:40 PM 015 4:50 (specimen) EDT PM EDT Resulting Agency Comment Spec In Lab Moises Crow MD CHEMISTRY ORDERABLES Performing Organization Address City/State/[place]IP [place] [address] [facility] documented in this encounter Visit Diagnoses Diagnosis Abdominal pain, RUQ (right upper quadran t) Abdominal pain, right upper quadrant Epigastric pain Abdominal pain, epigastric Gastroesophageal reflux disease without esophagitis Esophageal reflux Abnormal CT of the abdomen Nonspecific (abnormal) findings on radio logical and other examination of abdominal area, including retroperitoneum Rib pain on right side Chest pain, unspecified Abdominal pain, RUQ (right upper quadran t) Abdominal pain, right upper quadrant Epigastric pain Abdominal pain, epigastric Abnormal CT of the abdomen Nonspecific (abnormal) findings on radio logical and other examination of abdominal area, including retroperitoneum documented in this encounter Care Teams Oncology Account Specialist Relationship Specialty Start Date End Date Alfredo Jamison MD PCP - General 07/10/10 04/21/15 documented as of this encounter
--- OUTSIDE RECORDS SUMMARY | 2022-03-12 15:47 | XMS_ITS | Encounter Summary ---
:1950 Author Organization [facility] [place] [address] Care Team Providers Name Role Phone Alfredo Jamison MD Primary Care Provider Encounter Details Date Type Department Care Team Description 05/27/2013 Telephone Orthopaedics at [facility] [place] [address] Social History Tobacco Use Types Packs/Day Years Used Date Never Smoker Smokeless Tobacco: Never Used Alcohol Use Standard Drinks/Week Comments No 0 (1 standard drink = 0.6 oz pure alcoho l) Sex Assigned at Date Recorded Not on file documented as of this encounter Miscellaneous Notes Telephone Encounter - [place], Jill Huerta - 05/27/2013 2:40 PM EDT Ask patient to verify the following: Full name Mailing address Phone # InTake :RT HIP PAIN OA How long have you been experiencing these symptoms?YEARS Has anyone ever seen you before for this issue?DR GILLESPIE Is this a work related injury? If yes, what was your DOI? If no, is this a sports related injury? If yes, what was your DOI? Have you recently had any of the following studies or treatments?[facility] ?? X-Ray IN [facility] ?? MRI ?? CT Scan ?? LABS ?? Physical Therapy ?? INJECTION Have you seen an Orthopaedic surgeon for this condition?DR GILLESPIE ONLY Who did you see? Where were you seen (facility)? When? Phone # Fax# Have you had surgery for this issue? If different than above: Who performed surgery? Where were you seen (facility)? When? Phone # Fax# Will need to retrieve OPERATIVE REPORT and IMPLANT STICKERS. (if patient has joint replacement or hardware fixated); retrieve for opposite side. documented in this encounter Plan of Treatment Upcoming Encounters Date Type Specialty Care Team Description 05/28/2022 Appointment Pulmonology 05/28/2022 Office Visit Pulmonology Sonja Jenkins MD [facility]monary Medic[facility] [place], [place] [address] (Wo rk) documented as of this encounter Visit Diagnoses Not on filedocumented in this encounter Care Teams Pack Puller Relationship Specialty Start Date End Date Alfredo Jamison MD PCP - General 07/10/10 04/21/15 documented as of this encounter
--- OUTSIDE RECORDS SUMMARY | 2022-03-12 15:47 | XMS_ITS | Encounter Summary ---
:1950 Author Organization [facility] Address [facility] [place] [address] Care Team Providers Name Role Phone Alfredo Jamison MD Primary Care Provider Encounter Details Date Type Department Care Team Description 11/17/2014 Hospital Encounter Gastroenterology at [facility] [place] [facility] Moises Crow MD [facility] [address] [place] [address] [facility] Virginia Iraheta MD [facility] [place] [address] [place] [address] Social History Tobacco Use Types Packs/Day Years Used Date Never Smoker Smokeless Tobacco: Never Used Alcohol Use Standard Drinks/Week Comments No 0 (1 standard drink = 0.6 oz pure alcoho l) Sex Assigned at Date Recorded Not on file documented as of this encounter Last Filed Vital Signs Vital Sign Reading Time Taken Comments Blood Pressure 105/76 11/17/2014 10:57 AM EDT Pulse 57 11/17/2014 10:57 AM EDT Temperature - - Respiratory Rate 20 11/17/2014 10:57 AM EDT Oxygen Saturation 100% 11/17/2014 10:57 AM EDT Inhaled Oxygen Concentration - - Weight 63.5 kg (140 lb) 11/17/2014 9:44 AM EDT Height - - Body Mass Index 26.45 11/10/2014 2:43 PM EDT documented in this encounter Discharge Instructions Discharge InstructionsZora Funk RN - 11/17/2014 10:58 AM EDT You may have received medication before and /or during your procedure which effects judgement and reaction time. Do not drive, operate machinery , drink alcoholic beverages, or make important decisions for 24 hours. Be careful on stairs, as you may be unsteady on your feet. You may eat a regular diet as tolerated. Do not smoke if you are alone. IV site---slight redness or tenderness is normal. You may use a warm compress. If tenderness and redness increases of foul drainage occurs please contact your MD. UPPER GI ENDOSCOPY WHAT TO EXPECT AFTER THE PROCEDURE After the test you may feel a little more gassy or bloated than usual, this is normal. ACTIVITY Because of the sedation that you received Your judgement and reaction time are affected ?? Go home and rest quietly for the remainder of the day. You may resume your normal activities tomorrow. ?? Change from one position to the next slowly. You may lose your balance unexpectedly Be careful on stairs, as you may be unsteady on your feet. FOR THE NEXT 24 HRS ?? DO NOT DRIVE OR OPERATE ANY MACHINERY ?? DO NOT DRINK ALCOHOLIC BEVERAGES ?? DO NOT SIGN LEGAL DOCUMENTS ?? If you are a smoker: DO NOT SMOKE WHILE YOU ARE ALONE Diet ?? Start by eating small portions of foods that ordinarily will not upset your stomach. Be gentle with what you choose to start with. ?? Drink plenty of fluids ( unless otherwise told not to) Medications You may have a mild sore throat. Ice chips, popsicles, over the counter throat lozenges or spray may help numb your throat. This procedure should not cause a fever. IV SITE-- slight redness or tenderness is normal, you can use warm compresses if you get concerned.If the tenderness +/or redness increases or foul drainage and a red streak occurs, please contact your PCP immediately. WHEN SHOULD YOU CALL FOR HELP? Call 911 anytime you think that you need emergency care. For example, call if: You passed out (lost consciousness). You cough up blood. You vomit blood or what looks like coffee grounds. You pass maroon or very bloody stools. Call your healthcare provider or seek immediate medical attention if: You have trouble swallowing. You have belly pain. Your stools are black or tarlike or have streaks of blood. You are sick to your stomach or cannot keep fluids down. Watch closely for changes in your health, and be sure to contact your doctor IF Your throat still hurts after a day or two You do not get better as expected. [facility] [phone] 8a-5p Same Day Endo [phone] 7a-8p Otherwise contact [phone] and ask to speak to the associate publisher ammonia nitrate operator Follow-up care is a guajardo part of your treatment and safety. Be sure to make and go to all appointments, and call your doctor if you are having problems. Instructions have been reviewed and patient expresses understanding documented in this encounter Medications at Time [...] encounter Progress Notes Chirag Dennison RN - 11/14/2014 3:57 PM EDT ENDOSCOPY PATIENT HISTORY Name: MADIE GOMEZ : 1950 Age: 64 y.o. [address]: [address] [place] [id number] (home) Mobile: Telephone Information: Referring Provider: Alfredo Jamison Referral Procedure: EGD - Dysphagia, GERD, epigastric pain Allergies: Allergies Allergen Reactions ??? Cefoxitin Sodium [...] Cholecystectomy 2008 ??? Gastrectomy 1993 ??? Tonsillectomy Medications: Prior to Admission medications Medication Sig [...] 04/03/06 documented in this encounter H&P Notes Virginia Cotton MD - 11/17/2014 10:39 AM EDT Gastroenterology and Hepatology Pre-Procedure History and Physical Exam Procedure: Gastroscopy +/- dilation Indication: 64F with history of several months of dysphagia to solids, no odynophagai, no heartburn symptoms. Assess for mechanical obstruction. Patient Active Problem List Diagnosis Code ??? [...] Abdominal pain, RUQ (right upper quadrant) 789.01 EXAM: HEENT: Airway examined, oropharynx clear Mallampati Score: I (soft palate, uvula, fauces, tonsillar pillars visible) LUNGS: Clear to auscultation HEART: Regular rate and rhythm, normal S1, S2 ABDOMEN: Normal bowel sounds, soft, non tender, non distended, A/P Proceed with the planned endoscopic procedure. ASA 2 - Patient with mild systemic disease with no functional limitations Sedation Plan: deep Risks and benefits of the procedure explained to the patient. Consent signed. documented in this encounter Plan of Treatment Upcoming Encounters Date Type Specialty Care Team Description 05/28/2022 Appointment Pulmonology 05/28/2022 Office Visit Pulmonology Sonja Jenkins MD [facility] Pulmonary Medici [place] [address] (Wo rk) documented as of this encounter Procedures Procedure Name Priority Date/Time Associated Comments Diagnosis SPECIMEN TO PATHOLOGY Routine 11/17/2014 10:55 Re sults for this AM EDT procedure are i n the results section. SURGICAL PATHOLOGY Routine 11/17/2014 10:54 Resul ts for this REPORT AM EDT procedure are i n the results section. UPPER GASTROINTESTINAL 11/17/2014 10:38 Epigastr ic pain ENDOSCOPY,WITH BIOPSY AM EDT Gastroesophageal SINGLE OR MULTIPLE (WRVU reflux disease 2.49) without esophagitis Abdominal pain, RUQ (right upper quadrant) EGD, UPPER GI ENDOSCOPY 11/17/2014 10:38 Epigast lara pain AM EDT Gastroesophageal reflux disease without esophagitis Abdominal pain, RUQ (right upper quadrant) UPPER GI ENDOSCOPY Routine 11/17/2014 10:30 Resul ts for this AM EDT procedure are i n the results section. documented in this encounter Results Specimen to Pathology (surgical or derm) (11/17/2014 10:55 AM EDT) Specimen Anatomical Collection Method Collection Time Receive d Time (Source) Location / / Volume Laterality AP Specimen 11/17/2014 10:55 11/17/2014 AM EDT 10:55 AM EDT Narrative EMILIA PATEL - 11/17/2014 10:55 AM EDT Specimen requisition ordered. ??Separate Pathology report to follow Virginia Cotton MD PATHOLOGY/CYTOLOGY ORDERABLE S Performing Organization Address City/State/[place] [address] [facility] Surgical Pathology Report (11/17/2014 10:54 AM EDT) [facility] Method Time Signature Surgical [facility] Pathology ? [facility] Report ? Provider: ?? VIRGINIA COTTON ?Pt. Name: ?? BERNADETTE GARCIA, MADIE Huerta ? Acc #: ?[id number] ?Pt. MRN: ?[id number] ? Col Date: ?? 11/17/2014 ?/Sex: ?1950,(64 years),Female ? Rec Date: ?? 11/17/2014 ?LOC: ?4T ? SURGICAL PATHOLOGY ? ---Pathologic Diagnosis--- ? A - Stomach, biopsy: ? Gastric antral and corpus type mucosa within normal l imits. ? No H. pylori-like organisms are identified. ? CR-0 ? 11/22/14 ? JRP ? 11/22/14 Verified by: ? Payam BENZ, Rakesh Murillo ? Pathologist ? (Electronic Si gnature) ? The attending pathologist whose signature appears o n this report has ? reviewed all diagnostic slides and has edited the sneha ss and/or ? microscopic portion of the report in rendering the fi nal pathologic ? diagnosis. ? ---Gross Description--- ? A - Labeled/Fixative: Stomach bx, formalin. ? Quantity/Size: Four, ranging from 0.3-0.6 cm. ? Tissue Description: Soft, castellano tissues. ? Sections/Processing: (T1) ??sns ? ---Clinical Information--- ? Specimen Submitted: ? A - Stomach bx ? Clinical History: ? Dysphagia ? Clinical Diagnosis: ? Rule out H. Pylori Specimen (Source) Anatomical Collection Method Collection Time Re ceived Time Location / / Volume Laterality 11/17/2014 10:54 AM EDT Virginia Cotton MD PATHOLOGY/CYTOLOGY ORDERABLE S Performing Organization Address City/State/[place] [address] [facility] (11/17/2014 10:30 AM EDT) Component Value Ref Test Analysis Performed At [facility] gist Range Method Time Signature UPPER GI [facility] ENDOSCOPY Endoscopy Patient Name: Madie Gomez ? Procedure Date: 11/17/2014 10:30 AM ? N: [id number] ? Date of : 1950 ? Age: 64 ? Order #: [id number] ? Procedure: ? Upper GI endoscopy Indications: ? Dysphagia Providers: ? Virginia Cotton, Montse Gonzales RN, ? Shakeel Reynoso RN Referring : ?Alfredo Jamison MD Medicines: ? Monitored Anesthesia Care Complications: ? No immediate complications. Procedure: ? Pre-Anesthesia Assessment: ? - Prior to the procedure, a H istory ? and Physical was performed, a nd ? patient medications, allergie s and ? sensitivities were reviewed. The ? patient's tolerance of previo us ? anesthesia was reviewed. ? - The risks and benefits of t he ? procedure and the sedation op tions ? and risks were discussed with the ? patient. All questions were a nswered ? and informed consent was obta ined. ? - Patient identification and proposed ? procedure were verified prior to the ? procedure by the physician blake ennis the ? nurse. The procedure was veri fiagatha in ? the pre-procedure area in the ? procedure room. ? - Pre-procedure physical exam ination ? revealed no contraindications to ? sedation. ? - ASA Grade Assessment: II - A ? patient with mild systemic di sease. ? - After reviewing the risks a nd ? benefits, the patient was carlos med in ? satisfactory condition to und ergo the ? procedure. ? - Monitored anesthesia care w as ? determined to be medically ne cessary ? for this procedure based on kaleb perkins of ? the patient's medical history , ? medications, and prior anesth esia ? history. ? The procedure, indications, b enefits, ? risks and alternatives were e xplained ? to the patient. Specifically ? discussed were potential ? complications including, but not ? limited to, bleeding, perfora tion, ? infection, missing a cancer, and ? adverse medication reactions. The ? Endoscope was introduced thro h the ? mouth, and advanced to the ird part ? of duodenum. The patient tole rated ? the procedure well. The patie nt ? tolerated the procedure well. ? Findings: ? The upper third of the esophagus, middle third of the ? esophagus and lower third of the esophagus were ? normal. ? A widely patent Schatzki ring (acquired) was found at ? the lower esophageal sphincter. ? The Z-line was regular and was found 35 cm from the ? incisors. ? The gastric fundus was normal. ? The anastomosis was normal. The afferent and efferent ? limb were examined. Mucosa was normal in appearance. ? Impression: ?- Normal upper third of esophagus, ? middle third of esophagus and lower ? third of esophagus. ? - Widely patent Schatzki ring . ? - Z-line regular, 35 cm from the ? incisors. ? - Normal gastric fundus. Biop sied. ? - Normal anastomosis site and limbs. Recommendation: ?Start anti-reflux medication 30 mins ? before breakfast. Her symptom s are ? likely due to reflux given pr esence ? of Jasen arroyo. ? Follow up with referring phys ician ? Virginia Brar Matildeloren Virginia Camejo Torres, 11/17/2014 10:59 AM This report has been signed electronically. Number of Addenda: 0 Note Initiated On: 11/17/2014 10:30 AM Specimen (Source) Anatomical Collection Method Collection Time Re ceived Time Location / / Volume Laterality 11/17/2014 10:30 AM EDT Alfredo Jamison MD GENERAL SURGICAL ORDERABLES Performing Organization Address City/State/ZIP Code Phon e Number [facility] documented in this encounter Visit Diagnoses Not on filedocumented in this encounter Active and Recently Administered Medications Care Teams Travel Accommodation Inspector Relationship Specialty Start Date End Date Alfredo Jamison MD PCP - General 07/10/10 04/21/15 documented as of this encounter
--- OUTSIDE RECORDS SUMMARY | 2022-03-12 15:47 | XMS_ITS | Encounter Summary ---
:1950 Author Organization [facility] [place] [address] Care Team Providers Name Role Phone Alfredo Jamison MD Primary Care Provider Reason for Visit Reason Comments Medication Refill Encounter Details Date Type Department Care Team Description 04/28/2014 Refill Rheumatology at [facility] Hesham Dwyer MD [facility] [place] [address] RHEUMATOLOGY DEPT. [phone] [place], [place] [address] (Wo rk) Social History Tobacco [...] MD [facility] er Pulmonary Mediczion [place], [place] [address] (Wo rk) documented as of this encounter Visit Diagnoses Not on filedocumented in this encounter Care Teams Musical Instruments Assembler Relationship Specialty Start Date End Date Alfredo Jamison MD PCP - General 07/10/10 04/21/15 documented as of this encounter
--- OUTSIDE RECORDS SUMMARY | 2022-03-12 15:47 | XMS_ITS | Encounter Summary ---
:1950 Author Organization [facility] Address [facility] [place] [address] Care Team Providers Name Role Phone Alfredo Jamison MD Primary Care Provider Reason for Visit Reason Comments Right Hip Pain Encounter Details Date Type Department Care Team Description 11/17/2013 Office Visit Orthopaedics at [facility], DR KAUR Right hip pain [facility] Kayla khan (Primary Dx) [place] [address] Social History Tobacco Use Types Packs/Day Years Used Date Never Smoker Smokeless Tobacco: Never Used Alcohol Use Standard Drinks/Week Comments No 0 (1 standard drink = 0.6 oz pure alcoho l) Sex Assigned at Date Recorded Not on file documented as of this encounter Last Filed Vital Signs Vital Sign Reading Time Taken Comments Blood Pressure 125/70 11/17/2013 2:24 PM EDT Pulse 67 11/17/2013 2:24 PM EDT Temperature - - Respiratory Rate - - Oxygen Saturation - - Inhaled Oxygen Concentration - - Weight 65.8 kg (145 lb) 11/17/2013 2:24 PM EDT Height 154.9 cm (5' 1) 11/17/2013 2:24 PM EDT Body Mass Index 27.4 11/17/2013 2:24 PM EDT documented in this encounter Progress Notes Hesham Muir PA - 11/17/2013 3:03 PM EDT HISTORY OF PRESENT ILLNESS: Ms Da Silva returns. She has had progressive difficulty with her hips. Her right hip is most symptomatic. She has had trouble with her hips previously. She has a long historyof arthritic problems. She is taking percocet and also tramadol. She has had no injuries. She previously has had injections previously with good results. Aside from the hips, she has felt well. Some depression. No chest pain or SOB. Questionnaire Responses: myD-H Hip & Knee 11/17/2013 MODEMS Expectation - MODEMS Satisfaction 100 VR12 - Physical Component Summary 26.55 VR12 - Mental Component Summary 44.89 PROMIS-10 General Health Fair PROMIS-10 Quality of Life Fair PROMIS-10 Physical Health Poor PROMIS-10 Mental Health Fair PROMIS-10 Social Activity and Relationship Satisfaction Fair PROMIS-10 Social Roles at Home and Work Fair PROMIS-10 Everyday Physical Activities A little PROMIS-10 Anxious or Depressed last 7 days Sometimes PROMIS-10 Fatigue last 7 days Moderate PROMIS-10 Pain last 7 days 8 PROMIS PHYSICAL HEALTH SCORE (range 16-68) 29.6 PROMIS MENTAL HEALTH SCORE (range 21-68) 36.3 Arthritis Ladder - Hip - PLAN: We discussed her symptoms, I think her x-rays underestimate the amount of degenerative change in the hips. The response to her injections was discussed. We discussed indications for MEHRDAD. She is not interested currently. I gave her a prescription for meloxicam. We'll consider repeating her injection if she chooses. We'll plan to see her again as needed. documented in this encounter Plan of Treatment Upcoming Encounters Date Type Specialty Care Team Description 05/28/2022 Appointment Pulmonology 05/28/2022 Office Visit Pulmonology Sonja Jenkins MD [facility] Pulmonary Medici [place], [place] [address] (Wo rk) documented as of this encounter Visit Diagnoses Diagnosis Right hip pain - Primary Pain in joint, pelvic region and thigh documented in this encounter Care Teams Business Coordinator Relationship Specialty Start Date End Date Alfredo Jamison MD PCP - General 07/10/10 04/21/15 documented as of this encounter
--- OUTSIDE RECORDS SUMMARY | 2022-03-12 15:47 | XMS_ITS | Encounter Summary ---
:1950 Author Organization [facility] [place] [address] Care Team Providers Name Role Phone Alfredo Jamison MD Primary Care Provider Reason for Visit Reason Comments Medication Refill Encounter Details Date Type Department Care Team Description 03/30/2013 Refill Rheumatology at [facility] [place] Hesham Dwyer MD [facility] [place] [address] RHEUMATOLOGY DEPT. [phone] [place], [place] [address] (Wo rk) Social History Tobacco [...] 05/28/2022 Office Visit Pulmonology Sonja Jenkins MD [facility] er Pulmonary Mediczion [place], [place] [address] (Wo rk) documented as of this encounter Visit Diagnoses Not on filedocumented in this encounter Care Teams Permaculture Contractor Relationship Specialty Start Date End Date Alfredo Jamison MD PCP - General 07/10/10 04/21/15 documented as of this encounter
--- OUTSIDE RECORDS SUMMARY | 2022-03-12 15:47 | XMS_ITS | Encounter Summary ---
:1950 Author Organization [facility] Address [address] [place] [address] Care Team Providers Name Role Phone Alfredo Jamison MD Primary Care Provider Encounter Details Date Type Department Care Team Description 11/17/2013 Hospital Encounter XRay at [facility] [place] [place] Right hip pain [address] [place] [address] [place] [address] Social History Tobacco Use Types Packs/Day Years Used Date Never Smoker Smokeless Tobacco: Never Used Alcohol Use Standard Drinks/Week Comments No 0 (1 standard drink = 0.6 oz pure alcoho l) Sex Assigned at Date Recorded Not on file documented as of this encounter Medications at Time of Discharge Medication Sig Dispensed Refills Start Date End Date meloxicam (MOBIC) 15 mg Take 1 tablet by 30 tablet 1 201308/25/2014 tablet mouth daily. traMADol (ULTRAM) 50 mg take 1 to 2 tablets 180 tablet 3 08/201306/11/2014 tablet by mouth every 8 hours if needed for pain amitriptyline (ELAVIL) 50 take 1 tablet by 30 tablet 5 03/1804/28/2014 mg tablet mouth NIGHTLY OXYcodone-acetaminophen Take 1 tablet by 30 tablet 0 201011/10/2014 (PERCOCET) 10-325 mg per mouth every 8 hours tabletIndications: as needed for Pain. Disorders of bursae and tendons in shoulder region, unspecified, Osteoarthrosis, unspecified whether generalized or localized, hand, Osteoarthrosis, unspecified whether generalized or localized, lower leg, Back pain, Lumbar degenerative disc disease, Degenerative arthritis of cervical spine multivitamin (DAILY 0 04/03/200606/16 MULTIPLE) tablet documented as of this encounter Plan of Treatment Upcoming Encounters Date Type Specialty Care Team Description 05/28/2022 Appointment Pulmonology 05/28/2022 Office Visit Pulmonology Sonja Jenkins MD [facility] er Pulmonary [place], [place] [address] (Wo rk) documented as of this encounter Procedures Procedure Name Priority Date/Time Associated Diagnosis Comme nts XR PELVIS AND Routine 11/17/2013 1:53 PM Right hip pain Result s for this LATERAL HIP EDT procedure are i n the results section. documented in this encounter Results XR pelvis and lateral [...] encounter Visit Diagnoses Diagnosis Right hip pain Pain in joint, pelvic region and thigh documented in this encounter Care Teams Wool Presser Relationship Specialty Start Date End Date Alfredo Jamison MD PCP - General 07/10/10 04/21/15 documented as of this encounter
--- OUTSIDE RECORDS SUMMARY | 2022-03-12 15:47 | XMS_ITS | Encounter Summary ---
:1950 Author Organization [facility] Address [address] [place] [address] Care Team Providers Name Role Phone Alfredo Jamison MD Primary Care Provider Encounter Details Date Type Department Care Team Description 08/25/2013 Hospital Encounter XRay at [facility] [place] Pain in right hip [address] [place] [address] [place] [address] Social History Tobacco Use Types Packs/Day Years Used Date Never Smoker Smokeless Tobacco: Never Used Alcohol Use Standard Drinks/Week Comments No 0 (1 standard drink = 0.6 oz pure alcoho l) Sex Assigned at Date Recorded Not on file documented as of this encounter Medications at Time of Discharge Medication Sig Dispensed Refills Start Date End Date traMADol (ULTRAM) 50 mg take 1 to 2 tablets 180 tablet 3 11/16/2013 tablet by mouth every 8 hours if needed for pain amitriptyline (ELAVIL) 50 take 1 tablet by 30 tablet 5 03/1804/28/2014 mg tablet mouth NIGHTLY nabumetone (RELAFEN) 500 Take 1 tablet by mouth 2 times arnoldo y. With food. 60 tablet 5 07/16/2012 11/17/2013 mg tabletIndications: Osteoarthrosis, unspecified whether generalized or localized, lower leg, Lumbar degenerative disc disease, Degenerative arthritis of cervical spine OXYcodone-acetaminophen Take 1 tablet by 30 tablet 0 201011/10/2014 (PERCOCET) 10-325 mg per mouth every 8 hours tabletIndications: as needed for Pain. Disorders of bursae and tendons in shoulder region, unspecified, Osteoarthrosis, unspecified whether generalized or localized, hand, Osteoarthrosis, unspecified whether generalized or localized, lower leg, Back pain, Lumbar degenerative disc disease, Degenerative arthritis of cervical spine meloxicam (MOBIC) 7.5 mg Take 1 tablet by 30 tablet 11 07/2511/17/2013 tabletIndications: mouth daily. Disorders of bursae and tendons in shoulder region, unspecified, Osteoarthrosis, unspecified whether generalized or localized, hand, Osteoarthrosis, unspecified whether generalized or localized, lower leg, Back pain, Lumbar degenerative disc disease, Degenerative arthritis of cervical spine multivitamin (DAILY 0 04/03/200606/16 MULTIPLE) tablet cyanocobalamin, vitamin 0 04/03/2006 0 11/17/2013 B-12, 1,000 mcg/mL injection documented as of this encounter Plan of Treatment Upcoming Encounters Date Type Specialty Care Team Description 05/28/2022 Appointment Pulmonology 05/28/2022 Office Visit Pulmonology Sonja Jenkins MD [facility] Pulmonary Medici [place] [id number] (Wo rk) documented as of this encounter Procedures Procedure Name Priority Date/Time Associated Diagnosis Comme nts XR PELVIS AP AND Routine 08/25/2013 2:22 PM Pain in right hip Results for this HIP 2 VIEWS OF 1 EST procedure a re in HIP the results section. documented in this encounter Results XR pelvis AP and hip 2 views of 1 hip (08/25/2013 2:22 PM EST) Anatomical Region Laterality Modality Pelvis, Hip N/A Radiographic Imaging Specimen (Source) Anatomical Collection Method Collection Time Re ceived Time Location / / Volume Laterality 08/25/2013 2:22 PM EST Narrative 08/25/2013 4:13 PM EST Examination AP PELVIS AND 2 VIEWS ONE HIP/RIGHT Clinical History RIGHT HIP PAIN/TROUBLE WALKING Comparison 01/14/2013. Technique AP view of the pelvis including both hip s, as well as AP and lateral views of the right hip with Mag marker. ??Finding s: Findings Similar appearance of medial joint space narrowing on the right, with acetabular sclerosis and mild productive changes, with smooth femoral head contour. No subchondral cystic changes o r erosive changes are seen. Proliferative change by the [facility] as before. Minimal degenerative changes / arthropathy by the left hip, a s on prior. Mild degenerative changes of the sacroiliac joints appear stable. ?? Impression Mild right hip arthropathy appears simil ar to 01/14/2013. Procedure Note Mariama Lafleur MD - 08/25/2013Formatt ing of this note might be different from the original. Examination AP PELVIS AND 2 VIEWS ONE HIP/RIGHT Clinical History RIGHT HIP PAIN/TROUBLE WALKING Comparison 01/14/2013. Technique AP view of the pelvis including both hip s, as well as AP and lateral views of the right hip with Mag marker. Findings: Findings Similar appearance of medial joint space narrowing on the right, with acetabular sclerosis and mild productive changes, with smooth femoral head contour. No subchondral cystic changes o r erosive changes are seen. Proliferative change by the greater troc hanter, as before. Minimal degenerative changes / arthropathy by the left hip, a s on prior. Mild degenerative changes of the sacroiliac joints appear stable. Impression Mild right hip arthropathy appears simil ar to 01/14/2013. Star Haley MD IMG DX ORDERABLES documented in this encounter Visit Diagnoses Diagnosis Pain in right hip Pain in joint, pelvic region and thigh documented in this encounter Care Teams Fire Lieutenant Marine Relationship Specialty Start Date End Date Alfredo Jamison MD PCP - General 07/10/10 04/21/15 documented as of this encounter
--- OUTSIDE RECORDS SUMMARY | 2022-03-12 15:47 | XMS_ITS | Encounter Summary ---
:1950 Author Organization [facility] Address [address] [facility] [place] [address] Care Team Providers Name Role Phone Alfredo Jamison MD Primary Care Provider Reason for Visit Reason Onset Date Comments Other 06/09/2014 tramadol Encounter Details Date Type Department Care Team Description 06/09/2014 Telephone Rheumatology at [facility] Carlita Cummings, Jarret (tramadol) [facility] [place] [address] Social History Tobacco Use Types Packs/Day Years Used Date Never Smoker Smokeless Tobacco: Never Used Alcohol Use Standard Drinks/Week Comments No 0 (1 standard drink = 0.6 oz pure alcoho l) Sex Assigned at Date Recorded Not on file documented as of this encounter Miscellaneous Notes Telephone Encounter - Carlita Cummings RN - 06/09/2014 3:00 PM EDT Ashley called and left message requesting a renewal of her tramadol. She had to cancel her upcoming appointment with Dr. Dwyer because her daughter is having surgery. She says she was not able to get another one until August. documented in this encounter Plan of Treatment Upcoming Encounters Date Type Specialty Care Team Description 05/28/2022 Appointment Pulmonology 05/28/2022 Office Visit Pulmonology Sonja Jenkins MD [facility] er Pulmonary Medici [place], [place] [address] (Wo rk) documented as of this encounter Visit Diagnoses Not on filedocumented in this encounter Care Teams Erco Machine Operator Relationship Specialty Start Date End Date Alfredo Jamison MD PCP - General 07/10/10 04/21/15 documented as of this encounter
--- OUTSIDE RECORDS SUMMARY | 2022-03-12 15:47 | XMS_ITS | Encounter Summary ---
:1950 Author Organization [facility] Address [address] [place] [address] Care Team Providers Name Role Phone Alfredo Jamison MD Primary Care Provider Reason for Visit Reason Comments Right Hip Pain Encounter Details Date Type Department Care Team Description 01/14/2013 Office Visit Orthopaedics at [facility] Anderson Ferguson (degenerative [facility] Elizabeth Moreno MD joint disease) of hip Drive [facility] (Primary Dx) [place] [address] CENTER [phone] ORTHOPAEDIC SURGERY [place], [place] [address] Social History Tobacco Use Types Packs/Day Years Used Date Never Smoker Smokeless Tobacco: Never Used Alcohol Use Standard Drinks/Week Comments No 0 (1 standard drink = 0.6 oz pure alcoho l) Sex Assigned at Date Recorded Not on file documented as of this encounter Last Filed Vital Signs Vital Sign Reading Time Taken Comments Blood Pressure 128/65 01/14/2013 9:37 AM EDT Pulse 80 01/14/2013 9:37 AM EDT Temperature - - Respiratory Rate - - Oxygen Saturation - - Inhaled Oxygen Concentration - - Weight 70.8 kg (156 lb 1.6 oz) 01/14/2013 9:37 AM EDT Height 154.9 cm (5' 1) 01/14/2013 9:37 AM EDT Body Mass Index 29.49 01/14/2013 9:37 AM EDT documented in this encounter Progress Notes Anderson Ferguson Jr., MD - 01/14/2013 9:47 AM EDT HISTORY OF PRESENT ILLNESS: The patient is a 62-year-old white female who is referred to the orthopedic clinic today for evaluation of right hip pain. The patient reports that she has a long history of arthritic problems. She has been on tramadol for the past 15 years for lower back complaints. Approximately four to five months ago, she began to notice discomfort in the right groin region. There was no precipitating trauma. The pain is a constant problem, which is aggravated by standing and walking. She also finds that when she is lying down in bed that she must keep her hip in a slightly flex position with an object under her knee. She has pain at the extremes of motion. She was seen by her primary care physician who started her on oxycodone approximately two months ago. The pain remains primarily in the groin region. Occasionally, it radiates into the buttocks and lower back region. It does not radiate down her legs and she denies any motor or sensory changes. PHYSICAL EXAMINATION: On examination today, the patient is a healthy 62-year-old white female who is in no acute distress. Her gait was antalgic on the right side. Examination of the right hip reveals that she was tender over the anterior aspect of the hip. There was no tenderness over the trochanteric bursa. She has good range of motion of the hip, but did experience discomfort at the extremes of flexion and abduction. She also had pain with flexion and rotation and mild pain with rotation of the hip in controlled extension. DIAGNOSTIC DATA: X-rays taken today show evidence of degenerative changes, but no significant joint space narrowing. PLAN: Situation was reviewed with the patient. She does have evidence of degenerative arthritis on her x-rays and her examination is most consistent with an early arthritic hip. In an attempt to determine if this is the etiology of her pain and hopefully treat the problem, I think the patient would be best serve by going to x-ray and having injection of the hip under fluoroscopy. This is explained to the patient. She understands that this is both diagnostic and therapeutic, although it may only give her temporary relief. She understands and accepts this and desires to proceed. We will see the patient back in clinic after injection. documented in this encounter Miscellaneous Notes Miscellaneous - Provider, Scanning - 01/20/2013 9:07 AM EDT documented in this encounter Plan of Treatment Upcoming Encounters Date Type Specialty Care Team Description 05/28/2022 Appointment Pulmonology 05/28/2022 Office Visit Pulmonology Sonja Jenkins MD [facility] Pulmonary Medic[facility] [place], [place] [address] (Wo rk) documented as of this encounter Results XR Fluoro injection FL drain large JT (01/14/2013 10:49 AM EDT) Anatomical Region Laterality Modality N/A Radiographic Imaging Specimen (Source) Anatomical Collection Method Collection Time Re ceived Time Location / / Volume Laterality 01/14/2013 10:49 AM EDT Impressions 01/15/2013 8:20 AM EDT IMPRESSION: Uneventful right hip injection under fluoroscopy. ?? Resident/Fellow: none ?? Attending: Bhumi Narrative 01/15/2013 8:20 AM EDT HISTORY: Right hip Pain ?? Right hip INJECTION UNDER FLUOROSCOPY ?? TECHNIQUE: After an extensive conversati on with the patient regarding risks and benefits, oral and written consent were obtained. The patient was placed supine on the fluoroscopic table. The right hip was prepped and draped in the usual aseptic manner. 1% Lidocaine was used to achieve local anesthesia. Under fluoroscopic guidance, 22 gauge spinal n eedle was advanced into the joint space. Small amount of air was injected to document needle placement. A mixture of Ropivacaine, Lidocaine and triamcinol one acetonide was injected. All needles removed at end of procedure. ?? FINDINGS: ?? 1. Small amount of injected air in the h ip joint space. ?? 2. PAIN SCORE: ?? Before: 8 /10 ?? After: 10 ?? 3. Medications: ?? Lidocaine 1% - <5 ml, for subcutaneous a nesthesia ?? Ropivacaine HCL 0.5% - 3ml, ?? Triamcinolone Acetonide - 30 mg, ?? Fluoroscopy time: 7 sec ?? COMPLICATIONS: None immediate. ?? POST-PROCEDURE CARE: Information regardi ng monitor of infection, post- procedural pain and management of steroi d flare were reviewed with patient. ?? Procedure Note Remigio Tripathi MD - 01/15/2013Forma tting of this note might be different from the original. HISTORY: Right hip Pain Right hip INJECTION UNDER FLUOROSCOPY TECHNIQUE: After an extensive conversati on with the patient regarding risks and benefits, oral and written consent were obtained. The patient was placed supine on the fluoroscopic table. The right hip was prepped and draped in the usual aseptic manner. 1% Lidocaine was used to achieve local anesthesia. Under fluoroscopic guidance, 22 gauge spinal n eedle was advanced into the joint space. Small amount of air was injected to document needle placement. A mixture of Ropivacaine, Lidocaine and triamcinol one acetonide was injected. All needles removed at end of procedure. FINDINGS: 1. Small amount of injected air in the h ip joint space. 2. PAIN SCORE: Before: 8 /10 After: 4 /10 3. Medications: Lidocaine 1% - <5 ml, for subcutaneous a nesthesia Ropivacaine HCL 0.5% - 3ml, Triamcinolone Acetonide - 30 mg, Fluoroscopy time: 7 sec COMPLICATIONS: None immediate. POST-PROCEDURE CARE: Information regardi ng monitor of infection, post- procedural pain and management of steroi d flare were reviewed with patient. IMPRESSION IMPRESSION: Uneventful right hip injecti on under fluoroscopy. Resident/Fellow: none Attending: Bhumi Anderson Ferguson Jr., MD IM FLUORO ORDERABLES documented in this encounter Visit Diagnoses Diagnosis DJD (degenerative joint disease) of hip - Primary Osteoarthrosis, unspecified whether gene ralized or localized, pelvic region and thigh DJD (degenerative joint disease) of hip Osteoarthrosis, unspecified whether gene ralized or localized, pelvic region and thigh documented in this encounter Care Teams Oral Therapist Relationship Specialty Start Date End Date Alfredo Jamison MD PCP - General 07/10/10 04/21/15 documented as of this encounter
--- OUTSIDE RECORDS SUMMARY | 2022-03-12 15:47 | XMS_ITS | Encounter Summary ---
:1950 Author Organization [facility] Address [address] [place] [address] Care Team Providers Name Role Phone Alfredo Jamison MD Primary Care Provider Encounter Details Date Type Department Care Team Description 01/14/2013 Hospital Encounter XRay at [facility] [place] Right hip pain [address] [place] [address] [place] [address] Social History Tobacco Use Types Packs/Day Years Used Date Never Smoker Smokeless Tobacco: Never Used Alcohol Use Standard Drinks/Week Comments No 0 (1 standard drink = 0.6 oz pure alcoho l) Sex Assigned at Date Recorded Not on file documented as of this encounter Medications at Time of Discharge Medication Sig Dispensed Refills Start Date End Date traMADol (ULTRAM) 50 mg Take 1-2 tablets by 150 tablet 5 07/05/2013 tabletIndications: mouth every 8 hours Degenerative arthritis of as needed for Pain. cervical spine, Osteoarthrosis, unspecified whether generalized or localized, lower leg, Back pain, Lumbar degenerative disc disease, Osteoarthrosis, unspecified whether generalized or localized, pelvic region and thigh amitriptyline (ELAVIL) 50 Take 1 tablet by 30 tablet 5 06/1903/30/2013 mg tabletIndications: mouth nightly. Osteoarthrosis, unspecified whether generalized or localized, lower leg, Lumbar degenerative disc disease, Degenerative arthritis of cervical spine nabumetone (RELAFEN) 500 Take 1 tablet by [...] mcg/mL injection documented as of this encounter Miscellaneous Notes Miscellaneous - Provider, Scanning - 01/20/2013 9:08 AM EDT documented in this encounter Plan of Treatment Upcoming Encounters Date Type Specialty Care Team Description 05/28/2022 Appointment Pulmonology 05/28/2022 Office Visit Pulmonology Sonja Jenkins MD [facility] Pulmonary Mediczion [place], [place] [address] (Wo rk) documented as of this encounter Procedures Procedure Name Priority Date/Time Associated Diagnosis Comme nts XR PELVIS AP AND Routine 01/14/2013 9:20 AM Right hip pain Res ults for this HIP 2 VIEWS OF 1 EDT procedure a re in HIP the results section. documented in this encounter Results XR pelvis AP and hip 2 views of 1 hip (01/14/2013 9:20 AM EDT) Anatomical Region Laterality Modality Pelvis, Hip N/A Radiographic Imaging Specimen (Source) Anatomical Collection Method Collection Time Re ceived Time Location / / Volume Laterality 01/14/2013 9:20 AM EDT Narrative 01/14/2013 11:56 AM EDT Examination AP PELVIS AND 2 VIEWS ONE HIP/RIGHT Clinical History RT HIP PAIN OA Comparison 07/16/2012. Technique 2 views of the right hip and single AP v iew of the pelvis. Findings No fracture or dislocation. ??There is m inimal joint space narrowing of the right hip with associated subchondral sc lerosis and small osteophyte formation. Similar changes are also noted in the le ft hip, albeit, to a lesser degree. As on previous studies there is a small regine unt of proliferative bone at the greater trochanter suggesting chronic in flammation at the gluteal tendon insertions. Note is made of surgical cli ps in the pelvis. ?? Film and interpretation reviewed by the attending Procedure Note Remigio Tripathi MD - 01/14/2013Forma tting of this note might be different from the original. Examination AP PELVIS AND 2 VIEWS ONE HIP/RIGHT Clinical History RT HIP PAIN OA Comparison 07/16/2012. Technique 2 views of the right hip and single AP v iew of the pelvis. Findings No fracture or dislocation. There is min imal joint space narrowing of the right hip with associated subchondral sc lerosis and small osteophyte formation. Similar changes are also noted in the le ft hip, albeit, to a lesser degree. As on previous studies there is a small regine unt of proliferative bone at the greater trochanter suggesting chronic in flammation at the gluteal tendon insertions. Note is made of surgical cli ps in the pelvis. Film and interpretation reviewed by the attending Anderson Ferguson Jr., MD IMG DX ORDERABLES documented in this encounter Visit Diagnoses Diagnosis Right hip pain Pain in joint, pelvic region and thigh documented in this encounter Care Teams Leather Belt Loop Cutter Relationship Specialty Start Date End Date Alfredo Jamison MD PCP - General 07/10/10 04/21/15 documented as of this encounter
--- OUTSIDE RECORDS SUMMARY | 2022-03-12 15:47 | XMS_ITS | Encounter Summary ---
:1950 Author Organization [facility] Address [facility] [address] [place] [address] Care Team Providers Name Role Phone Alfredo Jamison MD Primary Care Provider Encounter Details Date Type Department Care Team Description 08/25/2014 Follow-Up Rheumatology at [facility] Hesham Dwyer, Osteoarthrosis, unspecified whether generalized or localized, hand; [facility] Osteoarth NOS-l/leg; [facility] Degenerative arthritis of cervical spine ; [place] [address] RHEUMATOLOGY DEPT. Osteoarthrosis, unspecified whether gene ralized or localized, pelvic region and thigh; [phone] [place], [place] [address] Abdominal pain, RUQ (right upper quadran t) [phone] (Wo rk) Social History Tobacco Use Types Packs/Day Years Used Date Never Smoker Smokeless Tobacco: Never Used Alcohol Use Standard Drinks/Week Comments No 0 (1 standard drink = 0.6 oz pure alcoho l) Sex Assigned at Date Recorded Not on file documented as of this encounter Last Filed Vital Signs Vital Sign Reading Time Taken Comments Blood Pressure 121/60 08/25/2014 10:09 AM EST Pulse 67 08/25/2014 10:09 AM EST Temperature 36.6 ??C (97.8 ??F) 08/25/2014 10:09 AM EST Respiratory Rate - - Oxygen Saturation 99% 08/25/2014 10:09 AM EST Inhaled Oxygen Concentration - - Weight 66.7 kg (147 lb) 08/25/2014 10:09 AM EST Height 154.9 cm (5' 1) 08/25/2014 10:09 AM EST Body Mass Index 27.78 08/25/2014 10:09 AM EST documented in this encounter Patient Instructions Patient InstructionsHesham Dwyer MD - 08/25/2014 10:48 AM EST Get labs and CT scan. Call for results. Further work-up pending that. Continue current regimen. documented in this encounter Progress Notes Hesham Dwyer MD - 08/25/2014 5:13 PM EST Rheumatology Clinic: Dr. Dwyer 08/25/2014 [id number] Madie Da Silva is seen in follow-up of her multiple musculoskeletal problems, including widespread osteoarthritis and chronic pain of the neck and low back. Over the last 6 months to a year, she's had several injections, including a fluoroscopic-guided hip injection since her last visit which providedsome relief. 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 She also had injections in her shoulder last year and in the base of her thumb more recently. All of these have been helpful to a degree. She also tells me that her daughter, who is also a patient of mine, underwent a pulmonary valve procedure and that was complicated by MRSA. She's having a slow healing process of the surgical wound. That has occupied the patient's time and her followup has been delayed somewhat. I actually have not seen her since 12/31/2012. What we spent most of our time talking about today is some right upper abdominal pain that wraps around the lateral lower rib cage into the posterior lower rib cage on that right side. This is an unusual pain in that she has a lot of positional variability. If she bends over at the waist that puts pressure on this area and causes pain. If she lies down the pressure on her back in this area will causepain. She denies respirophasic pain. She does not like to wear her bra because now just the pressurefrom the lower part of her bra will aggravate this pain in the right lower posterior thorax. She denies a rash or any other evidence of shingles. She's had no real issues with her bowels. She's moving her bowels well. There are no upper GI symptoms. She says that she has lost weight over the last yearor so, going from 155-146. She is not trying to lose weight. There has been some mild reduction in her appetite This has been going on for a few months now. She's had no fever, chills, sweats. She's had no change in the color of her urine and no jaundice. Patient Active Problem List Diagnosis Code ??? [...] Abdominal pain, RUQ (right upper quadrant) 789.01 Medications 08/25/14 1008 Medication Sig Taking? traMADol (ULTRAM) 50 mg Tablet take 1-2 tablets by mouth every 8 hours if needed for pain Yes amitriptyline (ELAVIL) 50 mg Tablet Take 1 tablet by mouth nightly. Yes OXYcodone-acetaminophen (PERCOCET) 10-325 mg per tablet Take 1 tablet by mouth every 8 hours as needed for Pain. Yes multivitamin (DAILY MULTIPLE) tablet Yes desonide (DESOWEN) 0.05 % Lotion Prn cyanocobalamin, vitamin B-12, 1,000 mcg/mL Solution every 30 days. Physical Exam: She looks well in general, but uncomfortable. Despite her concern about weight loss, she's actually up 2 pounds since her visit back on 12/31/2012. Blood pressure 121/60, pulse 67, temperature 36.6 ??C (97.8 ??F), temperature source Oral, height 154.9 cm (5' 1), weight 66.679 kg (147 lb), SpO2 99 %. Skin: Clear. No jaundice. HEENT: Unremarkable. Non-icteric. Lungs: A few crackles at the right base. Heart: Regular rhythm and rate without murmur, gallop, or rub. Abdomen: She is tender at to palpation along the edge of the liver in the right upper quadrant although the liver does not seem to be irregular or enlarged. There are no masses. She has normal bowel sounds. Extremities: No edema. Good distal pulses. Musculoskeletal: She has mild degenerative changes. She continues to have a slightly swollen painfulleft wrist. The right wrist is essentially normal. Elbows and shoulders move well. Examining her back, she is nontender along the spine but she's exquisitely tender along the right lower ribs The tenderness demarcates reasonably well at the midline, and extends around the lateral right ribs into the RUQ. Her hips actually move pretty well, including the right hip which on her last visit had limited motion with pain. The left hip continues to be normal. Her knees have crepitance bilaterally, consistent with degenerative disease there. Ankles and distal feet are unchanged. Neuro: Grossly intact. Assessment: I'm concerned about the right upper quadrant and right lower thorax pain. It seems to bein the distribution of the liver and without evidence of hepatomegaly, I wonder if she has some capsular stretching from some intraparenchymal process, either mass or infiltration. She's had her gallbladder out. I suppose she could have a retained stone, but the presentation would be unusual. I think she has some secondary atelectasis in the right lower lobe, although she denies respirophasic pain orsplinting. I think we need to look into this quickly and we'll get blood work today we also scheduled her for a CT scan of the abdomen. That should include the lower lung garcia and we can see if she has any secondary atelectasis. I asked her to call tomorrow to go over the results and refer her appropriately as necessary. I suppose there is a possibility that if there is no obvious pathology to explain this pain, she might have had an episode of shingles that she wasn't aware of and is now suffering from postherpetic neuralgia . In any case, she understood the plan. Otherwise I'll see her back in the usual time frame of 6 months. We gave the patient the following specific instructions: Patient Instructions Get labs and CT scan. Call for results. Further work-up pending that. Continue current regimen. Over 30 minutes of the 40 minute follow-up were spent discussing these problems and their treatment options in [id number] counseling and coordinating work-up of her abdominal pain. Orders Placed This Encounter Procedures ??? CT abdomen with contrast ??? CBC (with Diff) ??? Comprehensive metabolic panel (non-fasting) ??? Sedimentation rate ??? High Sensitivity CRP ??? Urinalysis with microscopic ??? Amylase ??? Hemogram ??? Differential, Automated Visit Diagnoses: 1. Osteoarthrosis, unspecified whether generalized or localized, hand traMADol (ULTRAM) 50 mg Tablet 2. Osteoarth NOS-l/leg traMADol (ULTRAM) 50 mg Tablet 3. Degenerative arthritis of cervical spine traMADol (ULTRAM) 50 mg Tablet 4. Osteoarthrosis, unspecified whether generalized or localized, pelvic region and thigh traMADol (ULTRAM) 50 mg Tablet 5. Abdominal pain, RUQ (right upper quadrant) CT abdomen with contrast CBC (with Diff) Comprehensive metabolic panel (non-fasting) Sedimentation rate High Sensitivity CRP Urinalysis with microscopic Amylase CBC (with Diff) Comprehensive metabolic panel (non-fasting) Sedimentation rate High Sensitivity CRP Urinalysis with microscopic Amylase Hemogram Differential, Automated Results for MADIE DA SILVA ( ) Ref. Range 08/25/2014 11:21 WBC Latest Range: 4.0-10.0 x10(3)/mcL 7.1 RBC Latest Range: 3.93-5.22 x10(6)/mcL 4.99 Hemoglobin Latest Range: 11.2-15.7 gm/dL 13.7 Hematocrit Latest Range: 34.0-45.0 % 43.3 MCV Latest Range: 79.0-94.0 fL 86.8 MCH Latest Range: 26.6-32.2 pg 27.5 MCHC Latest Range: 32.0-36.5 gm/dL 31.6 (L) RDWSD Latest Range: 35.0-46.0 fL 43.4 RDWCV Latest Range: 10.9-14.4 % 13.7 Platelets Latest Range: 145-370 x10(3)/mcL 225 MPV Latest Range: 9.0-12.0 fL 9.2 Neutr Abs (ANC) Latest Range: 1.50-6.30 x10(3)/mcL 2.93 Neutrophils % No range found 41.4 Immature Gran % No range found 0.10 Lymphocytes % No range found 49.8 Monocytes % No range found 5.9 Eosinophils % No range found 2.4 Basophils % No range found 0.4 Linda Gran Abs Latest Range: 0.00-0.05 x10(3)/mcL 0.01 Lymphocytes Abs Latest Range: 1.0-3.6 x10(3)/mcL 3.5 Monocyte Abs Latest Range: 0.2-1.0 x10(3)/mcL 0.4 Eosinophils Abs Latest Range: 0.0-0.5 x10(3)/mcL 0.2 Basophils Abs Latest Range: 0.0-0.2 x10(3)/mcL 0.0 Sed Rate Latest Range: 0-20 mm/hr 9 Sodium Latest Range: 135-145 mmol/L 142 Potassium Latest Range: 3.5-5.0 mmol/L 3.8 Chloride Latest Range: 98-107 mmol/L 102 CO2 Latest Range: 22-31 mmol/L 28 Anion Gap Latest Range: 5-15 mmol/L 12 BUN Latest Range: 8-18 mg/dL 8 Creatinine Latest Range: 0.70-1.20 mg/dL 0.70 Estimated GFR Latest Range: >=60 >60 Glucose Lvl Latest Range: 60-199 mg/dL 104 Calcium Latest Range: 8.5-10.5 mg/dL 9.8 Total Protein Latest Range: 6.4-8.3 gm/dL 8.3 Albumin Latest Range: 3.2-5.2 gm/dL 4.6 Total Bilirubin Latest Range: 0.2-1.3 mg/dL 0.5 Bili, Direct Latest Range: 0.0-0.3 mg/dL 0.1 Alk Phos Latest Range: 40-104 unit/L 98 AST Latest Range: 0-30 unit/L 21 ALT Latest Range: 0-30 unit/L 10 Amylase Latest Range: 28-100 unit/L 53 CRP High Sens No range found 0.7 Color UA Latest Range: Yellow Yellow Appearance UA Latest Range: Clear Clear Spec [place] UA Latest Range: 1.002-1.030 1.010 pH UA Latest Range: 5.0-8.0 7.0 Protein UA Latest Range: Negative mg/dL Negative Glucose UA Latest Range: Negative mg/dL Negative Ketones UA Latest Range: Negative mg/dL Negative Bilirubin UA Latest Range: Negative mg/dL Negative Urobilinogen UA Latest Range: Normal mg/dL Normal Blood UA Latest Range: Negative mg/dL Negative Leukocytes UA Latest Range: Negative mcL Large (A) Nitrite UA Latest Range: Negative Negative WBC UA Latest Range: 0-5 /HPF 6 (H) RBC UA Latest Range: 0-4 /HPF 2 Squam Epith UA Latest Range: <=4 /HPF 2 EXAMINATION: CT Abdomen With Contrast CLINICAL HISTORY: Pain in RUQ wrapping around into back ?hepatic capsular stretch (mass, infiltration), with pain and secondary atalectasis RLL TECHNIQUE: Helical CT of the abdomen was performed following the intravenous administration of contrast. 110 cc of Omnipaque 350 was given. Oral contrast was administered. COMPARISON: None FINDINGS: Liver: No focal lesions Bile ducts: Moderate to marked intrahepatic and extrahepatic Bile duct dilatation, common duct measures 15 mm in head of pancreas. Gallbladder: Status post cholecystectomy. Pancreas: Within normal limits. No masses Spleen: Normal. Adrenal: Normal. Kidneys: Tiny nonobstructing calculus left lower pole, 3 mm. Otherwise normal appearance. Lymph nodes: No enlarged lymph nodes. Bowel: Multiple surgical clips or metallic artifact are present around the cardia of the stomach and GE junction, suggesting prior iatrogenic procedure. Peritoneum: No ascites or free air, no fluid collection. Vasculature: Normal Osseous structures: No suspicious lesions. IMPRESSION: 1. Moderate to marked intra-hepatic and extrahepatic Bile duct dilatation, common bile duct measures 15 mm. No obstructing lesion seen. 2. Status post surgery of the upper stomach and perisplenic region. 3. Tiny calculus left lower pole kidney, 3 mm. ADDENDUM: Left message with son re these results. Will call. documented in this encounter Plan of Treatment Upcoming Encounters Date Type Specialty Care Team Description 05/28/2022 Appointment Pulmonology 05/28/2022 Office Visit Pulmonology Sonja Jenkins MD [facility] [place], [place] [address] (Wo rk) documented as of this encounter Procedures Procedure Name Priority Date/Time Associated Comments Diagnosis HEMOGRAM Routine 08/25/2014 11:21 Abdominal pain, RUQ Resu lts for this AM EST (right upper procedure are i n quadrant) the results section. DIFFERENTIAL, Routine 08/25/2014 11:21 Abdominal pain, RUQ Res ults for this AUTOMATED AM EST (right upper procedure are i n quadrant) the results section. URINALYSIS WITH REFLEX Routine 08/25/2014 11:21 Abdominal pain , RUQ Results for this CULTURE AM EST (right upper procedure are i n quadrant) the results section. SEDIMENTATION RATE Routine 08/25/2014 11:21 Abdominal pain, RU Q Results for this AM EST (right upper procedure are i n quadrant) the results section. CBC (WITH DIFF) Routine 08/25/2014 11:21 Abdominal pain, RUQ AM EST (right upper quadrant) CRP, CARDIAC RISK (HS Routine 08/25/2014 11:21 Abdominal pain, RUQ Results for this CRP) AM EST (right upper procedure are i n quadrant) the results section. AMYLASE Routine 08/25/2014 11:21 Abdominal pain, RUQ Resu lts for this AM EST (right upper procedure are i n quadrant) the results section. COMPREHENSIVE Routine 08/25/2014 11:21 Abdominal pain, RUQ Res ults for this METABOLIC PANEL AM EST (right upper procedure ar e in (NON-FASTING) quadrant) the results section. documented in this encounter Results CT abdomen with contrast (08/25/2014 3:00 PM EST) Anatomical Region Laterality Modality Abdomen Computed Tomography Specimen (Source) Anatomical Collection Method Collection Time Re ceived Time Location / / Volume Laterality 08/25/2014 3:00 PM EST Impressions 08/25/2014 3:22 PM EST IMPRESSION: 1. ??Moderate to marked intra-hepatic an d extrahepatic Bile duct dilatation, common bile duct measures 15 mm. No obst ructing lesion seen. 2. ??Status post surgery of the upper st omach and perisplenic region. 3. ??Tiny calculus left lower pole kidne y, 3 mm. Narrative 08/25/2014 3:22 PM EST EXAMINATION: ??CT Abdomen With Contrast CLINICAL HISTORY: ??Pain in RUQ wrapping around into back ?hepatic capsular stretch (mass, infiltration), with pain and secondary atalectasis RLL TECHNIQUE: Helical CT of the abdomen was performed following the intravenous administration of contrast. ??110 cc of Omnipaque 350 was given. Oral contrast was administered. COMPARISON: ??None FINDINGS: Liver: ??No focal lesions Bile ducts: ??Moderate to marked intrahe patic and extrahepatic Bile duct dilatation, common duct measures 15 mm i n head of pancreas. Gallbladder: Status post cholecystectomy . Pancreas: Within normal limits. No everardo s Spleen: ??Normal. Adrenal: ??Normal. Kidneys: ??Tiny nonobstructing calculus left lower pole, 3 mm. Otherwise normal appearance. Lymph nodes: ??No enlarged lymph nodes. Bowel: Multiple surgical clips or metall ic artifact are present around the cardia of the stomach and GE junction, s uggesting prior iatrogenic procedure. Peritoneum: ??No ascites or free air, no fluid collection. Vasculature: ??Normal Osseous structures: No suspicious lesion s. Procedure Note Lars Mariano MD - 08/25/2014Formatt ing of this note might be different from the original. EXAMINATION: CT Abdomen With Contrast CLINICAL HISTORY: Pain in RUQ wrapping a round into back ?hepatic capsular stretch (mass, infiltration), with pain and secondary atalectasis RLL TECHNIQUE: Helical CT of the abdomen was performed following the intravenous administration of contrast. 110 cc of Om nipaque 350 was given. Oral contrast was administered. COMPARISON: None FINDINGS: Liver: No focal lesions Bile ducts: Moderate to marked intrahepa tic and extrahepatic Bile duct dilatation, common duct measures 15 mm i n head of pancreas. Gallbladder: Status post cholecystectomy . Pancreas: Within normal limits. No everardo s Spleen: Normal. Adrenal: Normal. Kidneys: Tiny nonobstructing calculus le ft lower pole, 3 mm. Otherwise normal appearance. Lymph nodes: No enlarged lymph nodes. Bowel: Multiple surgical clips or metall ic artifact are present around the cardia of the stomach and GE junction, s uggesting prior iatrogenic procedure. Peritoneum: No ascites or free air, no f luid collection. Vasculature: Normal Osseous structures: No suspicious lesion s. IMPRESSION IMPRESSION: 1. Moderate to marked intra-hepatic and extrahepatic Bile duct dilatation, common bile duct measures 15 mm. No obst ructing lesion seen. 2. Status post surgery of the upper stom ach and perisplenic region. 3. Tiny calculus left lower pole kidney, 3 mm. Hesham Dwyer MD IMG CT ORDERABLES Differential, Automated (08/25/2014 11:21 AM EST) P athologist Signature Neutrophils % 41.4 % CERNER MILLENNIUM Neutr Abs (ANC) 2.93 1.50 - CERNER 6.30 MILLENNIUM x10(3)/mcL Lymphocytes % 49.8 % CERNER MILLENNIUM Lymphocytes Abs 3.5 1.0 - 3.6 CERNER x10(3)/mcL MILLENNIUM Monocytes % 5.9 % CERNER MILLENNIUM Monocyte Abs 0.4 0.2 - 1.0 CERNER x10(3)/mcL MILLENNIUM Eosinophils % 2.4 % CERNER MILLENNIUM Eosinophils Abs 0.2 0.0 - 0.5 CERNER x10(3)/mcL MILLENNIUM Basophils % 0.4 % CERNER MILLENNIUM Basophils Abs 0.0 0.0 [...] Location / / Volume Laterality Blood specimen 08/25/2014 11:21 5 (specimen) AM EST 11:33 AM EST Resulting Agency Comment Spec In Lab Hesham Dweyr MD HEMATOLOGY ORDERABLES Performing Organization Address City/State/[place] [address] CERNER MILLENNIUM (ABNORMAL) Hemogram (08/25/2014 11:21 AM EST) P athologist Signature WBC 7.1 4.0 - 10.0 CERNER x10(3)/mcL MILLENNIUM RBC 4.99 3.93 - CERNER 5.22 MILLENNIUM x10(6)/mcL Hemoglobin 13.7 11.2 - CERNER 15.7 gm/dL MILLENNIUM Hematocrit 43.3 34.0 - CERNER 45.0 % MILLENNIUM MCV 86.8 79.0 - CERNER 94.0 fL MILLENNIUM MCH 27.5 26.6 - CERNER 32.2 pg MILLENNIUM MCHC 31.6 (L) 32.0 - CERNER 36.5 gm/dL MILLENNIUM Platelets 225 145 - 370 CERNER x10(3)/mcL MILLENNIUM RDWSD 43.4 35.0 - CERNER 46.0 fL MILLENNIUM RDWCV 13.7 10.9 - CERNER 14.4 % MILLENNIUM MPV 9.2 9.0 - 12.0 CERNER fL MILLENNIUM Specimen Anatomical Collection Method Collection Time Receive d Time (Source) Location / / Volume Laterality Blood specimen 08/25/2014 11:21 5 (specimen) AM EST 11:33 AM EST Resulting Agency Comment Spec In Lab Hesham Dwyer MD HEMATOLOGY ORDERABLES Performing Organization Address City/State/ZIP Code Phon e Number [address] [facility] MILLEN[facility]UM Amylase (08/25/2014 11:21 AM EST) P athologist Signature Amylase 53 28 - 100 CERNER unit/L MILLENNIUM Specimen Anatomical Collection Method Collection Time Receive d Time (Source) Location / / Volume Laterality Blood specimen 08/25/2014 11:21 5 (specimen) AM EST 11:33 AM EST Resulting Agency Comment Spec In Lab Hesham Dwyer MD CHEMISTRY ORDERABLES Performing Organization Address City/[facility]/ZIP Code Phon e Number [address] CERNER MILLENNIUM (ABNORMAL) Urinalysis with microscopic (08/25/2014 11:21 AM EST) Patholo gist Method Time Signature Glucose UA Negative [...] Normal mg/dL CERNER MILL ENNIUM pH UA 7.0 5.0 - 8.0 CERNER MILLENNIUM Blood UA Negative Negative mg/dL CERNER MILLENNI UM Ketones UA Negative Negative mg/dL CERNER MILLENN IUM Nitrite UA Negative Negative CERNER MILLENNIUM Leukocytes UA Large (A) Negative mcL CERNER NILAY NIUM Appearance UA Clear Clear CERNER MILLENNIU M Spec [place] UA 1.010 1.002 - 1.030 CERNER MIL LENNIUM Color UA Yellow Yellow CERNER MILLENNIUM RBC UA 2 0 - 4 /HPF CERNER MILLENNIUM WBC UA 6 (H) 0 - 5 /HPF CERNER MILLENNIUM Squam Epith UA 2 <=4 /HPF CERNER MILLENNI UM Specimen Anatomical Collection Method Collection Time Receive d Time (Source) Location / / Volume Laterality Urine specimen 08/25/2014 11:21 5 (specimen) AM EST 11:33 AM EST Resulting Agency Comment Spec In Lab Hesham Dwyer MD URINE ORDERABLES Performing Organization Address City/State/[place] [address] CERNER MILLENNIUM High Sensitivity CRP (08/25/2014 11:21 AM EST) P athologist Signature CRP High Sens 0.7 mg/L CERNER MILLENNIUM Comment: Interpretations: 1) For [...] Location / / Volume Laterality Blood specimen 08/25/2014 11:21 5 (specimen) AM EST 11:33 AM EST Resulting Agency Comment Spec In Lab Hesham Dwyer MD CHEMISTRY ORDERABLES Performing Organization Address [facility] Phon e Number [address] CERNER MILLENNIUM Sedimentation rate (08/25/2014 11:21 AM EST) athologist Signature Sed Rate 9 0 - 20 CERNER mm/hr [facility] Specimen Anatomical Collection Method Collection Time Receive d Time (Source) Location / / Volume Laterality Blood specimen 08/25/2014 11:21 5 (specimen) AM EST 11:33 AM EST Resulting Agency Comment Spec In Lab Hesham Dwyer MD HEMATOLOGY ORDERABLES Performing Organization Address [facility] Phon e Number [address] [facility] MILLENNIUM Comprehensive metabolic panel (non-fasting) (08/25/2014 11:21 AM EST) athologist Signature Glucose Lvl 104 60 - 199 CERNER mg/dL MILLENNIUM Comment: Diabetes: >=200 mg/dL plus symp toms BUN 8 8 - 18 mg/dL CERNER MILLENNIUM Creatinine 0.70 0.70 - 1.20 mg/dL CERNER MILL ENNIUM Comment: Please note that the pediatric reference intervals supplied above were not validated at [facility]. Results from pediatri c patients should be interpreted in conjunction to the patient's age, height and muscle mass. Sodium 142 135 - 145 mmol/L CERNER NILAY NIUM [...] - 15 mmol/L CERNER MILLENNIU M Calcium 9.8 8.5 - 10.5 mg/dL CERNER NILAY NIUM Total Protein 8.3 6.4 - 8.3 gm/dL CERNER MIL LENNIUM Albumin 4.6 3.2 - 5.2 gm/dL CERNER MILLENN IUM AST 21 0 - 30 unit/L CERNER MILLENNIU M ALT 10 0 - 30 unit/L CERNER MILLENNIU M Alk Phos 98 40 - 104 unit/L CERNER MILLENN IUM Total Bilirubin 0.5 0.2 - 1.3 mg/dL [facility] M ILLENNIUM Bili, Direct 0.1 0.0 - [...] the following links into your internet browser. [email or web address] Specimen Anatomical Collection Method Collection Time Receive d Time (Source) Location / / Volume Laterality Blood specimen 08/25/2014 11:21 5 (specimen) AM EST 11:33 AM EST Resulting Agency Comment Spec In Lab Hesham Dwyer MD CHEMISTRY ORDERABLES Performing Organization Address City/State/[place] [address] [facility] ISSACBAN[facility] documented in this encounter Visit Diagnoses Diagnosis Osteoarthrosis, unspecified whether gene ralized or localized, hand Osteoarth NOS-l/leg Osteoarthrosis, unspecified whether gene ralized or localized, lower leg Degenerative arthritis of cervical spine Cervical spondylosis without myelopathy Osteoarthrosis, unspecified whether gene ralized or localized, pelvic region and thigh Abdominal pain, RUQ (right upper quadran t) Abdominal pain, right upper quadrant Abdominal pain, RUQ (right upper quadran t) Abdominal pain, right upper quadrant documented in this encounter Care Teams Hand Cloth Cutter Relationship Specialty Start Date End Date Alfredo Jamison MD PCP - General 07/10/10 04/21/15 documented as of this encounter
--- OUTSIDE RECORDS SUMMARY | 2022-03-12 15:47 | XMS_ITS | Encounter Summary ---
:1950 Author Organization [facility] [place] [address] Care Team Providers Name Role Phone Alfredo Jamison MD Primary Care Provider Encounter Details Date Type Department Care Team Description 12/31/2012 Orders Only Orthopaedics at [facility] Anderson Ferguson Right hip pain [facility] Elizabeth Moreno MD (Primary Dx) [place] [address] ORTHOPAEDIC SURGERY [place], [place] [address] Social History Tobacco Use Types Packs/Day Years Used Date Never Smoker Sex Assigned at Date Recorded Not on file documented as of this encounter Plan of Treatment Upcoming Encounters Date Type Specialty Care Team Description 05/28/2022 Appointment Pulmonology 05/28/2022 Office Visit Pulmonology Sonja Jenkins MD [facility] er Pulmonary Medici [place], [place] [address] (Wo rk) documented as of this encounter Results XR pelvis AP and [...] thigh documented in this encounter Care Teams Computer Programming Professor Relationship Specialty Start Date End Date Alfredo Jamison MD PCP - General 07/10/10 04/21/15 documented as of this encounter
--- OUTSIDE RECORDS SUMMARY | 2022-03-12 15:47 | XMS_ITS | Encounter Summary ---
:1950 Author Organization [facility] [place] [address] Care Team Providers Name Role Phone Alfredo Jamison MD Primary Care Provider Reason for Visit Reason Comments Medication Refill Encounter Details Date Type Department Care Team Description 07/05/2013 Refill Rheumatology at [facility] Hesham Dwyer MD [facility] [place] [address] RHEUMATOLOGY DEPT. [phone] [place], [place] [address] (Wo rk) Social History Tobacco [...] 05/28/2022 Office Visit Pulmonology Sonja Jenkins MD [facility] er Pulmonary Mediczion [place], [place] [address] (Wo rk) documented as of this encounter Visit Diagnoses Not on filedocumented in this encounter Care Teams Gis Web Developer Relationship Specialty Start Date End Date Alfredo Jamison MD PCP - General 07/10/10 04/21/15 documented as of this encounter
--- OUTSIDE RECORDS SUMMARY | 2022-03-12 15:47 | XMS_ITS | Encounter Summary ---
:1950 Author Organization [facility] Address [facility] [place] [address] Care Team Providers Name Role Phone Alfredo Jamison MD Primary Care Provider Encounter Details Date Type Department Care Team Description 11/17/2014 Anesthesia Event Gastroenterology at [facility] Gracy Barker MD [facility] [place] [address] [facility] Javi Negrete CRNA [facility] [address] [place] [address] [place] [address] Anesthesia Record Procedure Summary Procedure Name Responsible Anesthesia Start Anesthesia Stop Time Anesthesiologist Time EGD, UPPER GI Gracy Barker MD 11/17/14 1034 11/17/14 105 5 ENDOSCOPY (N/A Trunk) Events Date Time Event Comment 11/17/2014 1029 1034 Start 1036 AN Verify 1036 An Start Data 1038 Anesthesia Ready 1051 an stop data 1055 Stop Name Total Propofol 20 mg Propofol INF 133.35 mg Lactated Ringers 400 mL Agents Name O2 Blood No blood administrations on file. Lines, Drains, and Airways Type Details Placement Removal PIV cephalic vein right (lateral 11/17/14 1042 by 1138 by Mona Kebede side of arm); 22 gauge; KYM Ramon, RN MD Mj; 1; no longer indicated, catheter intact; 02/23/15; 1138 documented in this encounter Social History Tobacco Use Types Packs/Day Years Used Date Never Smoker Smokeless Tobacco: Never Used Alcohol Use Standard Drinks/Week Comments No 0 (1 standard drink = 0.6 oz pure alcoho l) Sex Assigned at Date Recorded Not on file documented as of this encounter OR Notes Anesthesia Postprocedure Evaluation - Gracy Barker MD - 11/17/2014 11:24 AM EDT Patient: Ashley Da Silva Procedure(s) Performed: Procedure(s): EGD, UPPER GI ENDOSCOPY UPPER GASTROINTESTINAL ENDOSCOPY,WITH BIOPSY SINGLE OR MULTIPLE Actual Anesthetic: MAC Patient location: PACU Post-op pain: Adequate analgesia Post-op nausea: no nausea or vomiting Last Vitals: Filed Vitals: 11/17/14 1057 BP: 105/76 Pulse: 57 Resp: 20 Post-op cardiovascular and respiratory status: is stable Level of consciousness: awake, alert and oriented Complications: no apparent complications and tolerated the procedure well Fluid Status: normal Anesthesia Preprocedure Evaluation - Gracy Barker MD - 11/17/2014 8:45 AM EDT Pre-Anesthesia Evaluation for: Ashley Da Silva a 64 y.o. female. Procedure(s): EGD, UPPER GI ENDOSCOPY Patient Active Problem List Diagnosis ??? Abdominal [...] 2008 ??? Gastrectomy 1993 ??? Tonsillectomy History Substance Use Topics ??? Smoking status: [...] no weight on file to calculate BMI. Airway Assessment: Mallampati: II TM distance: <3 FB Neck ROM: full Cardiovascular Assessment: Pulmonary Assessment: breath sounds clear to auscultation Dental Assessment: (+) lower dentures and upper dentures [facility] Assessment: Anesthesia Plan: ASA 2 MAC, with a(n) intravenous induction 64 y/o here for EGD, with dysphagia, work up for abdominal pain Multiple allergies, surgeries no problems with anesthesia S/p gastric bypass, with dysphagia, GERD well controlled ekg not on file, labs noted Plan : LMAC The patient was informed of the risks of anesthesia, and consent was obtained. These risks include, but are not limited to, PONV, pain, intraop awareness (expected), conversion to general anesthesia, and other rare but serious complications such as major organ damage, allergies, blood transfusions, and dental/lip trauma. Region - Other Informed Consent: Anesthetic plan and risks discussed with patient. Plan discussed with HALF SOLE FITTER. [facility]. Assessment: documented in this encounter Plan of Treatment Upcoming Encounters Date Type Specialty Care Team Description 05/28/2022 Appointment Pulmonology 05/28/2022 Office Visit Pulmonology Sonja Jenkins MD [facility] Pulmonary Mediczion [place] [address] (Wo rk) documented as of this encounter Visit Diagnoses Not on filedocumented in this encounter Administered Medications Inactive Administered Medications - up to 3 most recent administrations Medication Order MAR Action Action Date Dose Rate Site lactated ringers infusion New Bag 11/17/2014 10:34 AM EDT CONTINUOUS PRN, Starting on Alexus 11/17/14 at 1034, Until Alexus 11/17/14 at 1055, Anesthesia Intra-op propofol (DIPRIVAN) 10 mg/mL bolus injection Given 09/2014 10:41 AM EDT 20 mg (Anesthesia) PRN, Starting on Alexus 11/17/14 at 1041, Until Alexus 11/17/14 at 1055, Anesthesia Intra-op propofol (DIPRIVAN) Rate/Dose 11/17/2014 10:44 200 mcg/kg/min 76.2 m L/hr infusion Change AM EDT CONTINUOUS PRN, Starting on Alexus 11/17/14 at 1038, Until Alexus 11/17/14 at 1055, Anesthesia Intra-op, Routine New Bag 11/17/2014 10:38 AM EDT 250 mcg/kg/min 95.3 mL/hr documented in this encounter Care Teams Stitching Machine Setter Relationship Specialty Start Date End Date Alfredo Jamison MD PCP - General 07/10/10 04/21/15 documented as of this encounter
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
--- OUTSIDE RECORDS SUMMARY | 2022-03-12 15:47 | XMS_ITS | Encounter Summary ---
:1950 Author Organization [facility] Address [facility] [place] [address] Care Team Providers Name Role Phone Alfredo Jamison MD Primary Care Provider Reason for Visit Reason Onset Date Comments Other 12/30/2013 tramadol Encounter Details Date Type Department Care Team Description 12/30/2013 Telephone Rheumatology at [facility] Carlita Cummings, Jarret (tramadol) [facility] [place] [address] Social History Tobacco Use Types Packs/Day Years Used Date Never Smoker Smokeless Tobacco: Never Used Alcohol Use Standard Drinks/Week Comments No 0 (1 standard drink = 0.6 oz pure alcoho l) Sex Assigned at Date Recorded Not on file documented as of this encounter Miscellaneous Notes Telephone Encounter - Carlita Cummings RN - 12/30/2013 2:41 PM EDT Ashley called and left message requesting a renewal of her tramadol. Called Ashley back and left messageasking her to call back. documented in this encounter Plan of Treatment Upcoming Encounters Date Type Specialty Care Team Description 05/28/2022 Appointment Pulmonology 05/28/2022 Office Visit Pulmonology Sonja Jenkins MD [facility] er Pulmonary Nataliya powers [place], [place] [address] (Wo rk) documented as of this encounter Visit Diagnoses Not on filedocumented in this encounter Care Teams Typer Relationship Specialty Start Date End Date Alfredo Jamison MD PCP - General 07/10/10 04/21/15 documented as of this encounter
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
--- OUTSIDE RECORDS SUMMARY | 2022-03-12 15:47 | XMS_ITS | Encounter Summary ---
:1950 Author Organization [facility] [place] [address] Care Team Providers Name Role Phone Alfredo Jamison MD Primary Care Provider Reason for Visit Reason Comments Medication Refill Encounter Details Date Type Department Care Team Description 06/20/2012 [place] [facility] [place]ham Dwyer, Degenerative arthritis [facility] of cervical spine [facility] [place] [address] RHEUMATOLOGY DEPT. [phone] [place], [place] [address] (Wo rk) Social History Tobacco Use Types Packs/Day Years Used Date Never Smoker Sex Assigned at Date Recorded Not on file documented as of this encounter Plan of Treatment Upcoming Encounters Date Type Specialty Care Team Description 05/28/2022 Appointment Pulmonology 05/28/2022 Office Visit Pulmonology Sonja Jenkins MD [facility] er Pulmonary Medici [place], [place] [address] (Wo rk) documented as of this encounter Visit Diagnoses Diagnosis Degenerative arthritis of cervical spine Cervical spondylosis without myelopathy documented in this encounter Care Teams Senior Service Aide Relationship Specialty Start Date End Date Alfredo Jamison MD PCP - General 07/10/10 04/21/15 documented as of this encounter
--- OUTSIDE RECORDS SUMMARY | 2022-03-12 15:47 | XMS_ITS | Encounter Summary ---
:1950 Author Organization [facility] Address [facility] [address] [place] [address] Care Team Providers Name Role Phone Alfredo Jamison MD Primary Care Provider Reason for Visit Reason Onset Date Comments Other 08/26/2014 results Encounter Details Date Type Department Care Team Description 08/26/2014 Telephone Rheumatology at [facility] Carlita Cummings, Other (results) [facility] [place] [address] Social History Tobacco Use Types Packs/Day Years Used Date Never Smoker Smokeless Tobacco: Never Used Alcohol Use Standard Drinks/Week Comments No 0 (1 standard drink = 0.6 oz pure alcoho l) Sex Assigned at Date Recorded Not on file documented as of this encounter Miscellaneous Notes Telephone Encounter - Carlita Cummings RN - 08/29/2014 10:07 AM EST I left message with son last week that labs look okay and that CT didn't show any masses in liver. But the liver bile ducts were dilated (enlarged) and I wonder if that's the source of her pain. Next step would be evaluation by GI, possible ERCP or MRCP. Please ask her if it's okay to schedule semi-urgent GI consult. Thanks! CB Called Ashley and relayed Dr. Dwyer message above. She verbalized understanding. She would like to go ahead with the GI referral. Telephone Encounter - Carlita Cummings RN - 08/26/2014 3:02 PM EST Ashley called and left message that she missed a call from Dr. Dwyer regarding her test results. documented in this encounter Plan of Treatment Upcoming Encounters Date Type Specialty Care Team Description 05/28/2022 Appointment Pulmonology 05/28/2022 Office Visit Pulmonology Sonja Jenkins MD [facility] er Pulmonary Medici [place], [place] [address] (Wo rk) documented as of this encounter Visit Diagnoses Not on filedocumented in this encounter Care Teams Physician Extender Relationship Specialty Start Date End Date Alfredo Jamison MD PCP - General 07/10/10 04/21/15 documented as of this encounter
--- OUTSIDE RECORDS SUMMARY | 2022-03-12 15:47 | XMS_ITS | Encounter Summary ---
:1950 Author Organization [facility] Address [address] [address] Care Team Providers Name Role Phone Alfredo Jamison MD Primary Care Provider Encounter Details Date Type Department Care Team Description 01/14/2013 Hospital Encounter XRay at [facility] [place] DJD (degenerative joint [address] [place] [address] Dr disease) [place] [address] Social History Tobacco Use Types Packs/Day Years [...] mcg/mL injection documented as of this encounter Procedure Notes Remigio Tripathi MD - 01/14/2013 12:14 PM EDTProcedure(s): ARTHROCENTESIS,DRAIN/INJECT JOINT/BURSA Pre-Procedure Diagnose(s): Pain in right hip Ashley Da Silva [id number] HISTORY: right hip Pain Right hip INJECTION UNDER FLUOROSCOPY TECHNIQUE: After an extensive conversation with the patient regarding risks and benefits, oral and written consent were obtained. The patient was placed supine on the fluoroscopic table. The right hip was prepped and draped in the usual aseptic manner. 1% Lidocaine was used to achieve local anesthesia. Under fluoroscopic guidance, 22 gauge spinal needle was advanced into the joint space. Small amountof air was injected to the document needle placement. A mixture of Ropivacaine, Lidocaine and triamcinolone acetonide was injected. All needles removed at end of procedure. FINDINGS: 1. Small amount of injected air in the hip joint space. 2. PAIN SCORE: Before: 8 /10 After: 4 /10 3. Medications: Lidocaine 1% - <5 ml, for subcutaneous anesthesia Ropivacaine HCL 0.5% - 3ml, Triamciolone Acetonide - 30 mg, Fluoroscopy time: 7 sec COMPLICATIONS: None immediate. POST-PROCEDURE CARE: Information regarding monitor of infection, post- procedural pain and management of steroid flare were reviewed with patient. IMPRESSION: Uneventful right hip injection under fluoroscopy. Resident/Fellow: none Attending: Bhumi documented in this encounter Plan of Treatment Upcoming Encounters Date Type Specialty Care Team Description 05/28/2022 Appointment Pulmonology 05/28/2022 Office Visit Pulmonology Sonja Jenkins MD [facility] Pulmonary Medici [place], [place] [address] (Wo rk) documented as of this encounter Procedures Procedure Name Priority Date/Time Associated Diagnosis Comme nts XR FLUORO INJECTION Routine 01/14/2013 10:49 AM DJD (degenerat patel Results for this FL DRAIN LARGE JT EDT joint disease) of yuri hickey are in hip the results section. documented in this encounter Results XR Fluoro injection FL [...] SCORE: ?? Before: 8 /10 ?? After: 4 /10 ?? 3. Medications: ?? Lidocaine 1% - [...] PAIN SCORE: Before: 8 /10 After: 4 10 3. Medications: Lidocaine 1% - <5 ml, [...] none Attending: Bhumi Anderson Ferguson Jr., MD IMG FLUORO ORDERABLES documented in this encounter Visit Diagnoses Diagnosis DJD (degenerative joint disease) of hip Osteoarthrosis, unspecified whether gene ralized or localized, pelvic region and thigh documented in this encounter Administered Medications Inactive Administered Medications - up to 3 most recent administrations Medication Order MAR Action Action Date Dose Rate Site ropivacaine (PF) 5 mg/mL (0.5 %) 4 Given 01/14/2013 11:00 AM EDT mL with triamcinolone acetonide 10 mg injection Intra-articular, ONCE, 1 dose, On Alexus 01/14/13 at 1100 documented in this encounter Care Teams Blunger Relationship Specialty Start Date End Date Alfredo Jamison MD PCP - General 07/10/10 04/21/15 documented as of this encounter
--- OUTSIDE RECORDS SUMMARY | 2022-03-12 15:47 | XMS_ITS | Encounter Summary ---
:1950 Author Organization [facility] Address [facility] [place] [address] Care Team Providers Name Role Phone Alfredo Jamison MD Primary Care Provider Encounter Details Date Type Department Care Team Description 08/25/2014 Orders Only [place] [facility] [place] Dw[place] [facility] [place] [address] RHEUMATOLOGY DEPT. [phone] [place], [place] [address] (Wo rk) Social History Tobacco [...] Jenkins MD [facility] er Pulmonary Mediczion [place], [place] [address] (Wo rk) documented as of this encounter Visit Diagnoses Not on filedocumented in this encounter Care Teams Cheese Factory Worker Relationship Specialty Start Date End Date Alfredo Jamison MD PCP - General 07/10/10 04/21/15 documented as of this encounter
--- OUTSIDE RECORDS SUMMARY | 2022-03-12 15:47 | XMS_ITS | Encounter Summary ---
:1950 Author Organization [facility] Address [facility] [place] [address] Care Team Providers Name Role Phone Alfredo Jamison MD Primary Care Provider Encounter Details Date Type Department Care Team Description 07/16/2012 Hospital XRay at [facility] DR KAUR Lumbar degenerative Encounter 1 [facility] Hesham Dwyer MD [facility] [place] [address] [place] [phone] Social History Tobacco Use Types Packs/Day Years Used Date Never Smoker Sex Assigned at Date Recorded Not on file documented as of this encounter Medications at Time of Discharge Medication Sig Dispensed Refills Start Date End Date amitriptyline (ELAVIL) 50 Take 1 tablet by [...] disc disease, Degenerative arthritis of cervical spine traMADol (ULTRAM) 50 mg Take 1-2 tablets by 150 tablet 5 12/31/2012 tabletIndications: mouth every 8 hours Degenerative arthritis of as needed for Pain. cervical spine OXYcodone-acetaminophen Take 1 tablet by [...] Visit Pulmonology Sonja Jenkins MD [facility] er Pulmonary Medici [place], [place] [address] (Wo rk) documented as of this encounter Procedures Procedure Name Priority Date/Time Associated Diagnosis Comme nts XR LUMBAR SPINE 2 Routine 07/16/2012 4:53 PM Lumbar degenerati ve Results for this OR 3 VIEWS EST disc disease procedure are i n the results section. documented in this encounter Results XR lumbar spine 2 or 3 views [...] disc documented in this encounter Care Teams Acoustical Carpenter Relationship Specialty Start Date End Date Alfredo Jamison MD PCP - General 07/10/10 04/21/15 documented as of this encounter
--- OUTSIDE RECORDS SUMMARY | 2022-03-12 15:47 | XMS_ITS | Encounter Summary ---
:1950 Author Organization [facility] [place] [address] Care Team Providers Name Role Phone Alfredo Jamison MD Primary Care Provider Reason for Visit Reason Comments Other Encounter Details Date Type Department Care Team Description 07/20/2012 Telephone Rheumatology at [facility] Anil Collado RN [facility] [place] [address] Social History Tobacco Use Types Packs/Day Years Used Date Never Smoker Sex Assigned at Date Recorded Not on file documented as of this encounter Miscellaneous Notes Telephone Encounter - Anil Collado RN - 07/21/2012 2:31 PM EST Attempted to contact pt again at her number as listed in our medical records but still getting msg from [facility]. Did not leave a second msg. Called pt's PCP office and was given correct numbers for pt, both cell and work. Reached pt at her work number and gave her the results of her x-ray as per MD. Had secretaries update pt's demographics. Will forward pt's request for spine center referral to MD to process. Telephone Encounter - Anil Collado RN - 07/20/2012 9:10 AM EST Attempted to reach pt by phone. Her home phone number listed is [phone]. Called this and got voicemail for man named Saran at [facility]. Left generic msg asking for Ashley to call us back. Tried her emergency contact number and reached Mr Kayden but he has no other number for Ashley and doesnot know how to reach her. Will try again later but we may need updated contact information. Telephone Encounter - Anil Collado RN - 07/20/2012 9:06 AM EST Message copied by ANIL COLLADO on FriJul 20, 2012 9:06 AM ------ Message from: SHASHANK DAVILA Created: FriJul 18, 2012 10:31 PM Please call. X-rays show worsening arthritis in low back since 2003. Hips just show minimal wear and tear and that hasn't changed since 2003. Let's see what [facility] has to say. Thanks! documented in this encounter Plan of Treatment Upcoming Encounters Date Type Specialty Care Team Description 05/28/2022 Appointment Pulmonology 05/28/2022 Office Visit Pulmonology Sonja Jenkins MD [facility] er Pulmonary [place], [place] [address] (Wo rk) documented as of this encounter Visit Diagnoses Not on filedocumented in this encounter Care Teams Banquet Bartender Relationship Specialty Start Date End Date Alfredo Jamison MD PCP - General 07/10/10 04/21/15 documented as of this encounter
--- OUTSIDE RECORDS SUMMARY | 2022-03-12 15:47 | XMS_ITS | Encounter Summary ---
:1950 Author Organization [facility] Address [address] [place] [address] Care Team Providers Name Role Phone Alfredo Jamison MD Primary Care Provider Encounter Details Date Type Department Care Team Description 11/17/2014 Surgery Gastroenterology at [facility] Virginia Cotton, EGD, UPPER GI [facility] Kayla khan [place] [address] [facility] [phone] DR GASTROENTEROLOGY DEPT. [place], [place] [address] Social History Tobacco Use [...] not get better as expected. Friday-Friday Clinic [phone] 8a-5p Same Day Endo [phone] 7a-8p Otherwise contact [phone] and ask to speak to the warp knitter acquisitions logistics analyst Follow-up care is a guajardo part of [...] as of this encounter Progress Notes Chirag Dennison, SIENA - 11/14/2014 3:57 PM EDT ENDOSCOPY PATIENT HISTORY Name: MADIE GOMEZ : 1950 Age: 64 y.o. Address: [address] [place] [phone] (home) Mobile: Telephone Information: Referring Provider: Alfredo [...] 05/28/2022 Office Visit Pulmonology Sonja Jenkins MD [facility] Pulmonary Medici [place], [place] [address] (Wo rk) documented as of this encounter [...] 11/17/2014 AM EDT 10:55 AM EDT Narrative [facility] - 11/17/2014 10:55 AM EDT Specimen requisition ordered. ??Separate Pathology report to follow Virginia Cotton MD PATHOLOGY/CYTOLOGY ORDERABLE S Performing Organization Address City/State/ZIP [place] [address] [facility] Surgical Pathology Report (11/17/2014 10:54 AM EDT) Patholo gist Method Time Signature Surgical CERNER Pathology ? [facility] Report ? Provider: ?? VIRGINIA COTTON ?Pt. Name: ?? MADIE SHUKLA ? Acc #: ?[id number] ?Pt. MRN: ?[id number] ? Col Date: ?? 11/17/2014 ?/Sex: ?1950,(64 [...] MD PATHOLOGY/CYTOLOGY ORDERABLE S Performing Organization Address City/[facility]/[place] [address] [facility] U[facility] ENDOSCOPY (11/17/2014 10:30 AM EDT) Component Value Ref Test Analysis Performed At [facility] Range Method Time Signature UPPER GI [facility] ENDOSCOPY Endoscopy Patient Name: Madie Gomez ? Procedure Date: 11/17/2014 10:30 AM ? N: [id number] ? Date of : 1950 ? Age: 64 ? Order #: [id number] ? Procedure: ? Upper GI endoscopy Indications: [...] the ? nurse. The procedure was veri fied in ? the pre-procedure area in the [...] arroyo. ? Follow up with referring phys lindyan ? Virginia Cotton Virginia Cotton, 11/17/2014 10:59 AM This report has been signed electronically. Number of Addenda: 0 Note Initiated On: 11/17/2014 10:30 AM Specimen (Source) Anatomical Collection Method Collection Time Re ceived Time Location / / Volume Laterality 11/17/2014 10:30 AM EDT Alfredo Jamison MD GENERAL SURGICAL ORDERABLES Performing Organization Address City/State/ZIP Code Phon e Number [facility] documented in this encounter Visit Diagnoses Diagnosis Epigastric pain Abdominal pain, epigastric Gastroesophageal reflux disease without esophagitis Esophageal reflux Abdominal pain, RUQ (right upper quadran t) Abdominal pain, right upper quadrant documented in this encounter Active and Recently Administered Medications Care Teams Dean Of Instruction Relationship Specialty Start Date End Date Alfredo Jamiosn MD PCP - General 07/10/10 04/21/15 documented as of this encounter
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
--- OUTSIDE RECORDS SUMMARY | 2022-03-12 15:47 | XMS_ITS | Encounter Summary ---
:1950 Author Organization [facility] Address [address] [place] [address] Care Team Providers Name Role Phone Alfredo Jamison MD Primary Care Provider Reason for Visit Reason Onset Date Comments Other 03/02/2013 requesting repeat in [facility]. Encounter Details Date Type Department Care Team Description 03/02/2013 Telephone Orthopaedics at [facility] Vandana Segovia, Other (requesting [facility] Kayla khan RN repeat injection[place] [address] Social History Tobacco Use Types Packs/Day Years Used Date Never Smoker Smokeless Tobacco: Never Used Alcohol Use Standard Drinks/Week Comments No 0 (1 standard drink = 0.6 oz pure alcoho l) Sex Assigned at Date Recorded Not on file documented as of this encounter Miscellaneous Notes Telephone Encounter - Vandana Segovia RN - 03/02/2013 8:29 AM EDT Patient called 03/01/13 stating, I am a patient of Dr. Ferguson. I had a hip injection on 01/14/13. It is not working anymore. I'm having a lot of pain. I can't have another shot until the end of March. A return call was made 03/01/13 at 4:55 pm. Ms. Simeon had a right hip injection with anesthetic and triamcinolone under fluoroscopy on 01/14/13. She reported 75% relief of her pain for 2-3 weeks. She would like to schedule another one for later this summer. 03/02/13 8:30 am I reviewed her status with a colleague. A message was left at her home number to call back mid-March to schedule the right hip injection under fluoroscopy. documented in this encounter Plan of Treatment Upcoming Encounters Date Type Specialty Care Team Description 05/28/2022 Appointment Pulmonology 05/28/2022 Office Visit Pulmonology Sonja Jenkins MD [facility] er Pulmonary Medici [place], [place] [address] (Wo rk) documented as of this encounter Visit Diagnoses Not on filedocumented in this encounter Care Teams Survey Questionnaire Designer Relationship Specialty Start Date End Date Alfredo Jamison MD PCP - General 07/10/10 04/21/15 documented as of this encounter
--- OUTSIDE RECORDS SUMMARY | 2022-03-12 15:47 | XMS_ITS | Encounter Summary ---
:1950 Author Organization [facility] Address [address] [place] [address] Care Team Providers Name Role Phone Alfredo Jamison MD Primary Care Provider Reason for Visit Reason Onset Date Comments Medication Refill 11/16/2013 Encounter Details Date Type Department Care Team Description 11/16/2013 Refill Rheumatology at [facility] Hesham Dwyer MD [facility] [place] [address] RHEUMATOLOGY DEPT. [phone] [place], [place] [address] (Wo rk) Social History Tobacco [...] 05/28/2022 Office Visit Pulmonology Sonja Jenkins MD [facility] er Pulmonary Mediczion [place], [place] [address] (Wo rk) documented as of this encounter Visit Diagnoses Not on filedocumented in this encounter Care Teams Diaper Folder Relationship Specialty Start Date End Date Alfredo Jamison MD PCP - General 07/10/10 04/21/15 documented as of this encounter
--- OUTSIDE RECORDS SUMMARY | 2022-03-12 15:47 | XMS_ITS | Encounter Summary ---
:1950 Author Organization [facility] [place] [address] Care Team Providers Name Role Phone Alfredo Jamison MD Primary Care Provider Encounter Details Date Type Department Care Team Description 10/31/2014 Telephone Rheumatology at [facility] [place] [address] Social History Tobacco Use Types Packs/Day Years Used Date Never Smoker Smokeless Tobacco: Never Used Alcohol Use Standard Drinks/Week Comments No 0 (1 standard drink = 0.6 oz pure alcoho l) Sex Assigned at Date Recorded Not on file documented as of this encounter Miscellaneous Notes Telephone Encounter - Carlita Cummings RN - 11/02/2014 2:21 PM EDT Ashley called again today and left message with a different phone number of [phone] asking for narcotic rx. Tried this phone number, no answer and no voicemail set up. Tried cell phone number she left on 10/31/[address] Jamison' office to find out why they are no longer prescribing narcotics for Ashley, she says Ashley told another provider she was giving them to her daughter to use or sell. Told her Ashley has called Dr. Dwyer several times for these medications and we have been unable to reach her. Dr. Dwyer is not going to order her narcotics either. Telephone Encounter - Carlita Cummings RN - 11/01/2014 3:50 PM EDT Ashley called and left message asking for call back at [phone] regarding if Dwyer will fill her narcotic rx. Called Ashley back at number she left and left message letting her know Dwyer will not fill those prescriptions and wants to know why Dr. Jamison won't fill them either. Telephone Encounter - Carlita Cummings RN - 11/01/2014 1:39 PM EDT Attempted to call Ashley and let her know Dr. Dwyer will not refill her narcotic prescriptions and would like to know why Dr. Jamison will no longer write them. Unable to reach her because she did not answer her cell phone and has a voicemail box that is not set up. Will try again later. Telephone Encounter - Vickie Blair LPN - 10/31/2014 1:57 PM EDT Ashley calls looking to see if Dwyer will give her a script for her narcotics Oxycodone and or Oxycontin 10 mg QID since her PCP will not fill it anymore. Ashley can be reached at [phone]. documented in this encounter Plan of Treatment Upcoming Encounters Date Type Specialty Care Team Description 05/28/2022 Appointment Pulmonology 05/28/2022 Office Visit Pulmonology Sonja Jenkins MD [facility] er Dr Juan Antonio An [place], [place] [address] (Wo rk) documented as of this encounter Visit Diagnoses Not on filedocumented in this encounter Care Teams Manager Activities Relationship Specialty Start Date End Date Alfredo Jamison MD PCP - General 07/10/10 04/21/15 documented as of this encounter
--- OUTSIDE RECORDS SUMMARY | 2022-03-12 15:47 | XMS_ITS | Encounter Summary ---
:1950 Author Organization [facility] Address [facility] [place] [address] Care Team Providers Name Role Phone Alfredo Jamison MD Primary Care Provider Encounter Details Date Type Department Care Team Description 11/15/2014 Hospital Encounter MRI at [facility], DR KAUR Abdominal pain, RUQ (right u pper quadrant); [facility] Moises Crow MD [facility] [place] [address] Epigastric pain; Drive [place] the [place] [id number] Social History Tobacco Use Types Packs/Day Years [...] Visit Pulmonology Sonja Jenkins MD [facility] er Pulmonary Medici [place] [address] (Wo rk) documented as of this encounter Procedures Procedure Name Priority Date/Time Associated Comments Diagnosis MRI CHOLANGIOPANCREATOGRAPHY Routine 11/15/2014 8:00 Abdominal pain, Results for PM EDT RUQ (right upper this proced ure quadrant) are in the Epigastric pain results Abnormal CT of section. the abdomen documented in this encounter Results MRI cholangiopancreatography [...] stricture. Moises Crow MD IMG MRI ORDERABLES documented in this encounter Visit Diagnoses Diagnosis Abdominal pain, RUQ (right upper quadran t) Abdominal pain, right upper quadrant Epigastric pain Abdominal pain, epigastric Abnormal CT of the abdomen Nonspecific (abnormal) findings on radio logical and other examination of abdominal area, including retroperitoneum documented in this encounter Care Teams Security Monitor Relationship Specialty Start Date End Date Alfredo Jamison MD PCP - General 07/10/10 04/21/15 documented as of this encounter
--- OUTSIDE RECORDS SUMMARY | 2022-03-12 15:47 | XMS_ITS | Encounter Summary ---
:1950 Author Organization [facility] Address [address] [facility] [place] [address] Care Team Providers Name Role Phone Alfredo Jamison MD Primary Care Provider Encounter Details Date Type Department Care Team Description 07/16/2012 Hospital Encounter [place] [place] [facility] [place] pain; 1 [facility] Degeneration of lumbar or grabiel [place] [address] Social History Tobacco Use Types Packs/Day Years [...] Sonja Jenkins MD [facility] Pulmonary Medici [place], [place] [address] (Wo rk) documented as of this encounter Procedures Procedure Name Priority Date/Time Associated Diagnosis Comme nts XR PELVIS AND Routine 07/16/2012 4:53 PM Right hip john n Results for this LATERAL HIP EST Degeneration of lumbar proce dure are in or lumbosacral the results intervertebral disc section. documented in this encounter Results XR [...] disc documented in this encounter Care Teams General Manager Land Department Relationship Specialty Start Date End Date Alfredo Jamison MD PCP - General 07/10/10 04/21/15 documented as of this encounter
--- OUTSIDE RECORDS SUMMARY | 2022-03-12 15:47 | XMS_ITS | Encounter Summary ---
:1950 Author Organization [facility] Address [address] [place] [address] Care Team Providers Name Role Phone Alfredo Jamison MD Primary Care Provider Encounter Details Date Type Department Care Team Description 08/12/2013 Orders Only Orthopaedics at [facility] Star Haley MD Pain in right hip [facility] (Pr imary Dx) [place] [address] ORTHOPAEDIC [phone] SURGERY [place], [place] [address] Social History Tobacco Use Types [...] 05/28/2022 Appointment Pulmonology 05/28/2022 Office Visit Pulmonology oSnja Jenkins MD [facility] er Pulmonary Mediczion [address] [place], [place] [address] (Wo rk) documented as of [...] Pain in joint, pelvic region and thigh Pain in right hip Pain in joint, pelvic region and thigh documented in this encounter Care Teams Outdoor Adventure Instructor Relationship Specialty Start Date End Date Alfredo Jamison MD PCP - General 07/10/10 04/21/15 documented as of this encounter
== END 2022-03-12 15:42 | disposition home or self-care (01) ==
LOC: LBN 15:41
PROVIDERS: PCP Family Medicine; Visit Provider Nurse Practitioner Gerontology
DX: M62.81 Muscle weakness (generalized) (principal); J84.10 Pulmonary fibrosis, unspecified; R68.89 Other general symptoms and signs
CPT/HCPCS: 85025

== ENCOUNTER → 2022-03-14 02:26 | Outpatient (CLI) | payer MEDICARE, MEDICAID, SELFPAY ==
--- NOTE | 2022-03-14 12:36 | DI.RAD_ITS ---
Exam(s) XR CHEST 2V PA LATERAL EXAM: XR CHEST 2V PA LATERAL CLINICAL HISTORY: DIMINISHED LUNG SOUNDS, POSSIBLE PNEUMONIA TECHNIQUE: 2D digital imaging was performed of the chest. Two images were obtained. PA and lateral views were obtained. COMPARISON: CR,XR XR CHEST 2V PA LATERAL from 08/20/2020 CR XR PORTABLE CHEST AP from 05/21/2021 CR,XR XR PORTABLE CHEST AP from 08/25/2021 CR,XR XR PORTABLE CHEST AP from 02/23/2022 FINDINGS: MEDIASTINUM: Normal. HEART: Normal. PULMONARY VASCULATURE: Normal. LUNGS: There are diffuse bilateral chronic fibrotic changes present. Slight increased opacity is see n in the right lung base laterally. A superimposed pneumonia cannot be excluded. PLEURAL SPACE: No pleural effusion or pneumothorax. BONE:Within normal limits for the patient's age. OTHER FINDINGS:Surgical clips are again seen beneath the hemidiaphragms. IMPRESSION: 1. Diffuse chronic pulmonary fibrosis. 2. Increased opacity in the right lung base and superimposed pneumonia cannot be excluded. DATA REPOSITORY: RADIATION DOSE DELIVERED:
== END ==
PROVIDERS: PCP Family Medicine; Visit Provider Nurse Practitioner Gerontology
DX: J84.10 Pulmonary fibrosis, unspecified (principal); R91.8 Other nonspecific abnormal finding of lung field; J18.9 Pneumonia, unspecified organism
CPT/HCPCS: 71046

== ENCOUNTER 2022-03-26 19:24 | Outpatient (REF) | payer MEDICARE, MEDICAID, SELFPAY ==
[2022-03-26 19:56] LABS: Abs Immature Grans 0.08 10^3/uL (0.0-0.06); Absolute Basophil Count 0.09 10^3/uL (0.0-0.2); Absolute Neutrophil Count 12.03 10^3/uL (1.2-6.7); Basophils % 0.6; Eosinophils % 2.6; HCT 41.3 % (36.0-46.0); HGB 12.1 g/dL (11.2-15.7); Immature Grans % 0.5; Lymphocytes % 12.5; MCH 30.7 pg (27.0-33.0); MCHC 29.3 % (32.0-36.0); MCV 105 fL (80-95); MPV 9.8 fL (8.0-11.0); Monocytes % 5.2; Neutrophils % 78.6; Platelet Count 333 10^3/uL (130-400); RBC 3.94 10^6/uL (3.93-5.22); RDW 14.9 % (11.7-14.6); RDW-SD 58.4 fL; WBC 15.31 10^3/uL (4.4-10.8)
[2022-03-26 20:00] LABS: Absolute Lymphocyte Count 1.91 10^3/uL (1.2-3.4)
[2022-03-26 20:06] LABS: Anion Gap 8.6 mmol/L (3-11); BUN 13 mg/dL (7-18); CO2 27.4 mmol/L (21.0-32.0); CREATININE 1.2 mg/dL (0.55-1.02); Calcium 8.6 mg/dL (8.5-10.1); Chloride 106 mmol/L (98-107); Estimated GFR 44.29 (mL/min/1.73m2); Glucose 127 mg/dL (74-106); Potassium 5.1 mmol/L (3.5-5.1); Sodium 142 mmol/L (136-145)
== END 2022-03-26 19:25 | disposition home or self-care (01) ==
LOC: LBN 19:24
PROVIDERS: PCP Family Medicine; Visit Provider Nurse Practitioner Gerontology
DX: J18.9 Pneumonia, unspecified organism (principal); J84.10 Pulmonary fibrosis, unspecified; M62.81 Muscle weakness (generalized)
CPT/HCPCS: 80048; 85025

== ENCOUNTER 2022-04-08 18:18 | Outpatient (REF) | payer MEDICARE, MEDICAID, SELFPAY ==
[2022-04-08 17:47] LABS: Abs Immature Grans 0.06 10^3/uL (0.0-0.06); Absolute Eosinophil Count 0.36 10^3/uL (0.0-0.7); Absolute Lymphocyte Count 1.86 10^3/uL (1.2-3.4); Absolute Monocyte Count 0.62 10^3/uL (0.1-0.8); Absolute Neutrophil Count 11.85 10^3/uL (1.2-6.7); Basophils % 0.3; Eosinophils % 2.4; HCT 35.8 % (36.0-46.0); HGB 10.9 g/dL (11.2-15.7); Immature Grans % 0.4; Lymphocytes % 12.6; MCH 31.3 pg (27.0-33.0); MCHC 30.4 % (32.0-36.0); MCV 103 fL (80-95); MPV 9.6 fL (8.0-11.0); Monocytes % 4.2; Neutrophils % 80.1; Platelet Count 405 10^3/uL (130-400); RBC 3.48 10^6/uL (3.93-5.22); RDW 14.8 % (11.7-14.6); RDW-SD 54.9 fL
[2022-04-08 17:59] LABS: Anion Gap 8.4 mmol/L (3-11); BUN 21 mg/dL (7-18); CO2 28.6 mmol/L (21.0-32.0); CREATININE 1.1 mg/dL (0.55-1.02); Calcium 8.6 mg/dL (8.5-10.1); Chloride 105 mmol/L (98-107); Estimated GFR 48.96 (mL/min/1.73m2); Glucose 134 mg/dL (74-106); NT-proBNP 686 pg/mL (<300); Potassium 4.3 mmol/L (3.5-5.1); Sodium 142 mmol/L (136-145)
[2022-04-08 18:19] LABS: Absolute Basophil Count 0.04 10^3/uL (0.0-0.2)
== END 2022-04-08 18:19 | disposition home or self-care (01) ==
LOC: LBN 18:18
PROVIDERS: PCP Family Medicine; Visit Provider Nurse Practitioner Gerontology
DX: J18.9 Pneumonia, unspecified organism (principal); J84.10 Pulmonary fibrosis, unspecified; R68.89 Other general symptoms and signs; M62.81 Muscle weakness (generalized)
CPT/HCPCS: 80048; 83880; 85025

== ENCOUNTER 2022-04-17 14:17 | Outpatient (REF) | payer MEDICARE, MEDICAID, SELFPAY ==
[2022-04-17 14:55] LABS: Abs Immature Grans 0.05 10^3/uL (0.0-0.06); Absolute Basophil Count 0.08 10^3/uL (0.0-0.2); Absolute Eosinophil Count 0.62 10^3/uL (0.0-0.7); Absolute Lymphocyte Count 4.23 10^3/uL (1.2-3.4); Absolute Monocyte Count 0.74 10^3/uL (0.1-0.8); Absolute Neutrophil Count 7.22 10^3/uL (1.2-6.7); Basophils % 0.6; Eosinophils % 4.8; HCT 36.7 % (36.0-46.0); HGB 11.2 g/dL (11.2-15.7); Immature Grans % 0.4; Lymphocytes % 32.7; MCH 31.2 pg (27.0-33.0); MCHC 30.5 % (32.0-36.0); MCV 102 fL (80-95); MPV 9.7 fL (8.0-11.0); Monocytes % 5.7; Neutrophils % 55.8; Platelet Count 397 10^3/uL (130-400); RBC 3.59 10^6/uL (3.93-5.22); RDW 14.4 % (11.7-14.6); RDW-SD 54.1 fL; WBC 12.94 10^3/uL (4.4-10.8)
[2022-04-17 15:09] LABS: ALT 22 U/L (14-59); AST 29 U/L (15-37); Albumin 2.9 g/dL (3.4-5.0); Alkaline Phosphatase 86 U/L (46-116); Anion Gap 9.1 mmol/L (3-11); BUN 30 mg/dL (7-18); Bilirubin, Total 0.3 mg/dL (0.2-1.0); CO2 24.9 mmol/L (21.0-32.0); CREATININE 1.4 mg/dL (0.55-1.02); Calcium 8.7 mg/dL (8.5-10.1); Chloride 105 mmol/L (98-107); Estimated GFR 40.22 (mL/min/1.73m2); Glucose 128 mg/dL (74-106); Potassium 4.7 mmol/L (3.5-5.1); Sodium 139 mmol/L (136-145); Total Protein 7.1 g/dL (6.4-8.2)
== END 2022-04-17 14:18 | disposition home or self-care (01) ==
LOC: LBN 14:17
PROVIDERS: PCP Family Medicine; Visit Provider Nurse Practitioner Gerontology
DX: R63.4 Abnormal weight loss (principal); J18.9 Pneumonia, unspecified organism; J98.4 Other disorders of lung; R53.83 Other fatigue
CPT/HCPCS: 80053; 85025

== ENCOUNTER 2022-04-25 16:47 | Outpatient (REF) | payer MEDICARE, MEDICAID, SELFPAY ==
[2022-04-25 16:32] LABS: Abs Immature Grans 0.03 10^3/uL (0.0-0.06); Absolute Basophil Count 0.07 10^3/uL (0.0-0.2); Absolute Eosinophil Count 0.42 10^3/uL (0.0-0.7); Absolute Lymphocyte Count 2.36 10^3/uL (1.2-3.4); Absolute Monocyte Count 0.64 10^3/uL (0.1-0.8); Absolute Neutrophil Count 7.72 10^3/uL (1.2-6.7); Basophils % 0.6; Eosinophils % 3.7; HGB 11.4 g/dL (11.2-15.7); Immature Grans % 0.3; MCH 31.5 pg (27.0-33.0); MCHC 30.8 % (32.0-36.0); MCV 102 fL (80-95); MPV 9.5 fL (8.0-11.0); Monocytes % 5.7; Neutrophils % 68.7; Platelet Count 312 10^3/uL (130-400); RBC 3.62 10^6/uL (3.93-5.22); RDW 14.5 % (11.7-14.6); RDW-SD 54.6 fL; WBC 11.24 10^3/uL (4.4-10.8)
[2022-04-25 16:50] LABS: ALT 23 U/L (14-59); AST 32 U/L (15-37); Albumin 3.1 g/dL (3.4-5.0); Alkaline Phosphatase 82 U/L (46-116); Anion Gap 11.5 mmol/L (3-11); BUN 26 mg/dL (7-18); Bilirubin, Total 0.2 mg/dL (0.2-1.0); CO2 24.5 mmol/L (21.0-32.0); CREATININE 1.4 mg/dL (0.55-1.02); Calcium 8.6 mg/dL (8.5-10.1); Chloride 103 mmol/L (98-107); Estimated GFR 40.22 (mL/min/1.73m2); Glucose 76 mg/dL (74-106); Sodium 139 mmol/L (136-145); TSH (W/Ref FT4) 3.93 uIU/mL (0.36-3.74); Total Protein 7.5 g/dL (6.4-8.2)
[2022-04-25 17:21] LABS: FREE T4 1.01 ng/dL (0.76-1.46)
[2022-04-25 17:53] LABS: Vitamin D 25 Total 27.4 ng/mL (30-100)
== END 2022-04-25 16:48 | disposition home or self-care (01) ==
LOC: LBN 16:47
PROVIDERS: PCP Family Medicine; Visit Provider Nurse Practitioner Gerontology
DX: M62.81 Muscle weakness (generalized) (principal); J84.10 Pulmonary fibrosis, unspecified; I10 Essential (primary) hypertension; Z74.1 Need for assistance with personal care
CPT/HCPCS: 80053; 82306; 84439; 84443; 85025

== ENCOUNTER → 2022-04-30 02:41 | Outpatient (CLI) | payer MEDICARE, MEDICAID, SELFPAY ==
--- NOTE | 2022-04-30 | DI.RAD_ITS ---
Exam(s) XR CHEST 2V PA LATERAL EXAM: XR CHEST 2V PA LATERAL CLINICAL HISTORY: F/U PNEUMONIA TECHNIQUE: 2D digital imaging was performed. COMPARISON: CR XR CHEST 2V PA LATERAL from 03/14/2022 FINDINGS: MEDIASTINUM: Normal. HEART: Normal. PULMONARY VASCULATURE: Normal. LUNGS: Changes of severe pulmonary fibrosis. No gross evidence of a superimposed infiltrate. PLEURAL SPACE: No pleural effusion or pneumothorax. BONE:Unremarkable for age. Surgical clips and suture material left upper quadrant. IMPRESSION: Severe pulmonary fibrosis. No acute abnormality. DATA REPOSITORY: RADIATION DOSE DELIVERED:
== END ==
PROVIDERS: PCP Family Medicine; Visit Provider Nurse Practitioner Gerontology
DX: J18.9 Pneumonia, unspecified organism (principal); J84.10 Pulmonary fibrosis, unspecified
CPT/HCPCS: 71046

== ENCOUNTER 2022-05-18 23:37 | Observation (INO) | payer MEDICARE, MEDICAID, SELFPAY ==
--- NOTE | 2022-05-18 23:30 | RT.EKG_ITS ---
APPROVED REPORT Exam: Resting ECG Reason for Exam: sob Patient Location: E HR:97 bpm ECG Measurements Heart Rate 97 AXIS ID 137 P 54 QRSd 91 QRS -8 QT 320 T 35 QTc 405 Conclusion Sinus rhythm...normal P axis, V-rate 60- 99 ST elevation, consider anterolateral injury...ST >0.15mV, I aVL V2-V6. Sinus. Significant artifact. No STEMI.
[2022-05-18 23:42] VITALS: BP 119/67; PULSE 94; RESP 34
--- NOTE | 2022-05-18 23:42 | ED.GENADUL_ITS ---
Discharge Plan Disposition Patient Disposition: [facility] INPATIENT Condition: Stable Discharge Details Clinical Impression: Hypoglycemia, Pneumonia, Acute kidney injury, Hyperkalemia, Dehydration Admit Date/Time: 05/19/22 01:23 Admit Provider: Elder Hardy Attending Provider: Elder Hardy Primary Care Provider: Rober Cho ED Provider: Jovanna Mendiola Discharge Data Discharge Date/Time-TO BE ENTERED AT DEPARTURE: 05/19/22 02:42 Medical Decision Making 71-year-old female who is DNR/DNI with a history of pulmonary fibrosis and being followed by Dr. 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 Oxygen saturation 98% on 2 L on arrival. She is speaking in 2-3 word sentences. Her lungs are clear throughout without wheezing or rhonchi. She appears frail and cachectic but non toxic. Differential diagnosis includes acute exacerbation of her chronic pulmonary fibrosis, worsening pneumonia, COVID, CHF exacerbation. History and presentation does not appear consistent with PE or dissection. Patient states she would like a work-up and neb treatment. Will obtain screening labs, portable chest x-ray, COVID and give DuoNeb and reassess. Labs and imaging reviewed. Glucose 29. Creatinine 2.3, normally 1.4. Po tassium 6.7. BNP 13368. D-dimer 3064. Normal white blood cell count. Hemoglobin 10.8 close to her baseline. Troponin negative. COVID-negative. Chest x-ray notes similar appearing chronic fibrotic changes in addition to potentially new consolidations of the left perihilar and lung base area. Patient was given an amp of D50 and a 500 cc normal saline bolus. We will recheck her glucose and if continues to be hypoglycemic we will start D5 normal saline. Suspect her ARPIT is in the setting of dehydration as she states she has not eaten or drank much for the past few days. She does not appear to be in acute pulmonary edema and her blood pressure has been soft with a systolic in the 80s and 90s so we will hold on diuretics at this time. We will start broad- spectrum antibiotics due to recent hospital admission. Her allergy list notes sulfa and Levaquin and due to ARPIT we will hold on vancomycin. Case discussed with hospitalist who accepts patient for admission. We will give Lokelma for hyperkalemia. We will prophylactically treat with Lovenox due to elevated D-dimer in the setting of shortness of breath and hypoxia with potential plan for VQ scan or CT chest later today. Medical Records Medical records reviewed: Yes I reviewed the patient's medical records. Lab Data Lab results reviewed: Yes I reviewed the patient's lab results. Labs: Laboratory Tests Range/Units 05/18/22 05/18/22 05/18/22 23:50 23:50 23:50 WBC (4.4-10.8) 10^3/uL 7.08 RBC (3.93-5.22) 10^6/uL 3.56 L Hgb (11.2-15.7) g/dL 10.8 L Hct (36.0-46.0) % 35.1 L MCV (80-95) fL 99 H MCH (27.0-33.0) pg 30.3 MCHC (32.0-36.0) % 30.8 L RDW (11.7-14.6) % 13.9 Plt Count (130-400) 10^3/uL 324 MPV (8.0-11.0) fL 9.7 Immature Gran % 0.0 Neutrophils % 78.0 Band Neutrophils % 4 Lymphocytes % 6.0 Monocytes % 9.0 Eosinophils % 0.0 Basophils % 1.0 Metamyelocytes % 2 Nucleated RBC % (0.0-0.3) % 0.0 Absolute Neutrophils (1.2-6.7) 10^3/uL 5.81 Absolute Lymphocytes (1.2-3.4) 10^3/uL 0.42 L Absolute Monocytes (0.1-0.8) 10^3/uL 0.64 Absolute Eosinophils (0.0-0.7) 10^3/uL 0.00 Absolute Basophils (0.0-0.2) 10^3/uL 0.07 D-Dimer (<500) ng/mlFEU 3064 H Sodium (136-145) mmol/L 136 Potassium (3.5-5.1) mmol/L 6.7 H* Chloride (98-107) mmol/L 101 Carbon Dioxide (21.0-32.0) mmol/L 24.4 Anion Gap (3-11) mmol/L 10.6 BUN (7-18) mg/dL 45 H Creatinine (0.55-1.02) mg/dL 2.3 H Est GFR (CKD-EPI 2020) (mL/min/1.73m2) 22.17 Glucose (74-106) mg/dL 29 L* Calcium (8.5-10.1) mg/dL 9.0 Magnesium (1.8-2.4) mg/dL 2.3 Total Bilirubin (0.2-1.0) mg/dL 0.4 AST (15-37) U/L 57 H ALT (14-59) U/L 22 Alkaline Phosphatase (46-116) U/L 173 H Troponin I (<or=60) ng/L < 50 NT-Pro-B Natriuret Pep (<300) pg/mL Total Protein (6.4-8.2) g/dL 6.8 Albumin (3.4-5.0) g/dL 2.2 L COVID-19 Source SARS-CoV-2 (PCR) (Negative) Range/Units 05/18/22 05/19/22 23:50 00:00 WBC (4.4-10.8) 10^3/uL RBC (3.93-5.22) 10^6/uL Hgb (11.2-15.7) g/dL Hct (36.0-46.0) % MCV (80-95) fL MCH (27.0-33.0) pg MCHC (32.0-36.0) % RDW (11.7-14.6) % Plt Count (130-400) 10^3/uL MPV (8.0-11.0) fL Immature Gran % Neutrophils % Band Neutrophils % Lymphocytes % Monocytes % Eosinophils % Basophils % Metamyelocytes % Nucleated RBC % (0.0-0.3) % Absolute Neutrophils (1.2-6.7) 10^3/uL Absolute Lymphocytes (1.2-3.4) 10^3/uL Absolute Monocytes (0.1-0.8) 10^3/uL Absolute Eosinophils (0.0-0.7) 10^3/uL Absolute Basophils (0.0-0.2) 10^3/uL D-Dimer (<500) ng/mlFEU Sodium (136-145) mmol/L Potassium (3.5-5.1) mmol/L Chloride (98-107) mmol/L Carbon Dioxide (21.0-32.0) mmol/L Anion Gap (3-11) mmol/L BUN (7-18) mg/dL Creatinine (0.55-1.02) mg/dL Est GFR (CKD-EPI 2020) (mL/min/1.73m2) Glucose (74-106) mg/dL Calcium (8.5-10.1) mg/dL Magnesium (1.8-2.4) mg/dL Total Bilirubin (0.2-1.0) mg/dL AST (15-37) U/L ALT (14-59) U/L Alkaline Phosphatase (46-116) U/L Troponin I (<or=60) ng/L NT-Pro-B Natriuret Pep (<300) pg/mL 95188 H Total Protein (6.4-8.2) g/dL Albumin (3.4-5.0) g/dL COVID-19 Source Nasal/Nares SARS-CoV-2 (PCR) (Negative) Negative ECG Data Attestation: I personally reviewed and interpreted this ECG (s) as follows: Interpretation: Rate of 97, sinus, no STEMI. HPI General Mode of arrival: EMS . Date/Time Provider Initiated Documentation: 05/18/22 23:42 . Limitations to Documentation: no limitations . Information obtained by: patient . HPI Narrative: Patient is a 71-year-old female who is DNR/DNI with a history of pulmonary fibrosis and being followed by Dr. 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 She admits to chronic cough with white or clear sputum. She was recently seen by palliative care with discussion of possible home hospice. Patient states that she has decided not to pursue hospice. She denies any fever or anterior chest pain. Per EMS, patient was given a neb treatment at the [facility] and question whether she wanted transport as she felt better. EMS reported an oxygen saturation of 90% on 2 L on arrival which improved to 96% after neb treatment. She also states she has been vomiting with decreased appetite at times but denies abdominal pain. Related Data Home Medications Medication Instructions Recorded Confirmed aspirin 81 mg tablet,delayed 81 mg PO DAILY #30 tabs 11/24/20 05/19/22 release benzonatate 100 mg capsule 100 mg PO TID PRN 11/24/20 05/19/22 fluticasone propionate 50 2 spray intranasal DAILY PRN 11/24/20 05/19/22 mcg/actuation nasal spray,suspension megestrol 625 mg/5 mL (125 mg/mL) 5 ml PO DAILY 11/24/20 05/19/22 oral suspension atorvastatin 10 mg tablet 10 mg PO QHS #90 tabs 01/31/21 05/19/22 food supplemt, lactose-reduced 240 ml PO TID 03/12/22 05/19/22 multivitamin with minerals 1 cap PO DAILY 03/12/22 05/19/22 vitamin B complex 1 tab PO DAILY 03/12/22 05/19/22 Oxygen 03/20/22 04/26/22 albuterol sulfate 90 mcg/actuation 2 puff inhalation Q6H PRN 03/20/22 05/19/22 aerosol inhaler mycophenolate mofetil 500 mg tablet 1,000 mg PO BID 03/20/22 05/19/22 nintedanib 150 mg capsule (Ofev) 150 mg PO BID #90 caps 03/20/22 05/19/22 oxycodone 5 mg tablet 5 mg PO HS PRN pain 03/20/22 05/19/22 potassium chloride 20 mEq 40 meq PO DAILY 03/20/22 05/19/22 tablet,extended release(part/cryst) tramadol 50 mg tablet 50 - 100 mg PO TID PRN 03/20/22 05/19/22 fluticasone propionate 45 2 puff inhalation BID #12 grams 04/12/22 05/19/22 mcg-salmeterol 21 mcg/actuation HFA inhaler (Advair HFA) furosemide 20 mg tablet 20 mg PO DAILY 04/24/22 05/19/22 nutzuf-gdngpwpj-gbdulah 1 cap PO TID 04/24/22 05/19/22 4,000-25,000-20,000 unit capsule,delayed rel loperamide 2 mg tablet 2 mg PO Q6H PRN 04/24/22 05/19/22 magnesium oxide 800 mg PO BID 04/24/22 05/19/22 ondansetron HCl 4 mg tablet 4 mg PO Q6H 04/24/22 05/19/22 spironolactone 25 mg tablet 25 mg PO DAILY 04/24/22 05/19/22 ergocalciferol (vitamin D2) 25,000 50,000 unit PO .ONE\WEEK 05/19/22 05/19/22 unit capsule losartan 25 mg tablet 25 mg PO DAILY 05/19/22 05/19/22 mometasone-formoterol HFA 100 2 puff inhalation BID 05/19/22 05/19/22 mcg-5 mcg/actuation aerosol inhaler (Dulera) Previous Rx's Medication Instructions Recorded aspirin 81 mg tablet,delayed 81 mg PO DAILY #30 tabs 11/24/20 release atorvastatin 10 mg tablet 10 mg PO QHS #90 tabs 01/31/21 nintedanib 150 mg capsule (Ofev) 150 mg PO BID #90 caps 03/20/22 fluticasone propionate 45 2 puff inhalation BID #12 grams 04/12/22 mcg-salmeterol 21 mcg/actuation HFA inhaler (Advair HFA) Allergies Allergy/AdvReac Type Severity Reaction Status Date / Time Sulfa (Sulfonamide Allergy Severe Anaphylaxis Unverified 05/19/22 00:09 Antibiotics) levofloxacin Allergy Intermediate Other (See Unverified 05/19/22 00:09 Comment) General Stated Complaint: SOB JAMIE: 2 Review of Systems All systems reviewed & are unremarkable except as noted in HPI and below Constitutional Constitutional: Reports as per HPI, Denies chills, Denies excessive sweating, Denies fatigue and Denies fever(s) Eyes Eyes: Denies blurry vision ENT Ears, Nose, Mouth, and Throat: Denies dizziness, Denies sore throat and Denies throat swelling Cardiovascular Cardiovascular: Denies chest pain and Reports dyspnea Respiratory Respiratory: Reports cough and Reports dyspnea Gastrointestinal Gastrointestinal: Denies abdominal pain, Denies diarrhea and Denies vomiting Genitourinary Genitourinary: Denies hematuria and Denies dysuria Musculoskeletal Musculoskeletal: Denies back pain and Denies numbness Integumentary/Breasts Skin/Breast: Denies lesions and Denies rash Neurologic Neurologic: Denies behavioral changes, Denies confusion, Denies dizziness, Denies localized weakness and Denies numbness Psychiatric Psychiatric: Denies behavioral changes, Denies confusion and Denies depression Endocrine Endocrine: Denies excessive sweating and Denies fatigue Hematologic/Lymphatic Hematologic/Lymphatic: Denies easy bruising and Denies lymphadenopathy Allergic/Immunologic Allergic/Immunologic: Denies throat swelling PFSH All Active Problems (Updated 05/19/22 @ 18:07 by Gale Feliciano NP) Comfort measures only status (Acute) Thrush (Acute) Discharge planning issues (Acute) Elevated d-dimer (Acute) Hypoglycemia (Acute) Pneumonia (Acute) Acute kidney injury (Acute) Hyperkalemia (Acute) Dehydration (Acute) Respiratory failure with hypoxia (Acute) Interstitial pneumonia with autoimmune features (Acute) Palliative care encounter (Acute) Hypomagnesemia (Acute) Hip pain (Chronic) SOB (shortness of breath) (Acute) Medical History Acute UTI Arthritis of left wrist Calcium ureterolithiasis Chronic back pain Diffuse interstitial pulmonary fibrosis Essential tremor Fibromyalgia Hypertension Osteoarthritis Pre-diabetes Pulmonary fibrosis Patient had previous work-up by Dr. Ferrara in [facility] in March 2018. Patient reports that her PFTs did not show underlying COPD, patient has a follow-up with Dr. Giron in February 16, 2019 F/U with with Dr. Woodard. Has supplemental O2 when needed (1L) Renal stones Stress at home Stroke Stroke 11/24/21-pt. stated it was an acute stroke, f/u Dr. Anderson and stated she no longer needed to follow up with her, she takes a baby aspirin 81mg everyday for prevention Surgical History Hx of cataract surgery Hx of ultrasound guided needle biopsy of lung S/P cholecystectomy S/P gastric bypass S/P hernia repair S/P hysterectomy Family History Mother Stroke Maternal Grandmother Stroke Maternal Uncle Stroke Social History Smoking/Tobacco Use Status: Never Second Hand Exposure: Yes (Secondary to her parents as well as ) Smoking risk assessment performed?: Yes Alcohol Intake: never Drug use: Never Substance use type: does not use Household members: family and children Housing: other Details: [facility] Number of Children: 5 number of grandchildren: 8 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 Pets and animals: Yes Pets and animals: dog(s) Current gender identity: female What is your relationship status?: Panel score (0-1 are the most socially isolated patients): 0 What type of physical activity do you participate in: walking Frequency: daily Seatbelt use: always Do you feel safe at home: Yes Do you feel safe in your relationship?: Yes History History 4 Para Hx # Term Pregnancies 4 Multiple births Hx # Pregnancies Ectopic pregnancies AB induced Hx Number of Living Children AB spontaneous Exam Const General: cooperative and ill appearing chronically Nutritional Appearance: cachectic Orientation: alert, awake and oriented x3 HENMT Head: normal to inspection Ears: hearing grossly normal bilaterally and external ears normal Face and sinus: normal facial exam Eyes General: appearance normal, both eyes and all related structures Eyelids: eyelids normal EOM: EOM intact bilaterally Neck Neck: normal visual inspection Lymphatic: no lymphadenopathy noted Chest Chest: normal inspection of the chest Resp Effort & Inspection: normal respiratory effort and able to speak in complete sentences Auscultation: clear to auscultation bilaterally Cardio Rate: regular rate Rhythm: regular rhythm GI Inspection: normal to inspection Palpation: soft, not firm, no guarding, no hepatosplenomegaly, no masses and nontender Auscultation: normal bowel sounds Skin General skin exam: no rashes or lesions noted Neuro General: patient alert and patient awake Cognition: normal cognition Speech: speech normal Motor: muscle tone normal throughout Sensory Exam: no sensory deficits noted Extrem General: normal to inspection, full ROM, capillary refill normal and no edema Psych Appearance: grossly normal Mental Status: mental status grossly normal Speech and Movement: speech and movement normal Affect: normal affect Thought Process: normal
[2022-05-18 23:43] VITALS: RESP 28
[2022-05-18 23:45] VITALS: BP 119/67; PULSE 105; RESP 16; TEMP 36.4; O2SAT 98
--- NOTE | 2022-05-18 23:45 | DI.RAD_ITS ---
Exam(s) XR PORTABLE CHEST AP EXAM: XR PORTABLE CHEST AP CLINICAL HISTORY: cough, sob, r/o acute disease. TECHNIQUE: 2D digital imaging was performed. COMPARISON: CR XR CHEST 2V PA LATERAL from 04/30/2022 FINDINGS: Single AP portable view. Heart size is upper normal. The mediastinum is not widened. Extensive bilateral interstitial fibrosis changes again noted. However, there is now superimposed co nfluent infiltrate in the mid left lung field as well as in the left lower lobe. Also in the right l ower lobe. No pleural effusions evident. No pneumothorax. IMPRESSION: Bilateral infiltrates as described above, superimposed upon chronic interstitial disease. DATA REPOSITORY: RADIATION DOSE DELIVERED:
[2022-05-18 23:46] VITALS: BP 111/64; PULSE 96; PULSE 97; RESP 26; RESP 32; TEMP 36.7; O2SAT 96
[2022-05-18] MEDS: Albuterol/Ipratropium 3 ML UPD VIAL UPD (23:50)
[2022-05-18 23:56] VITALS: PULSE 98; RESP 29
[2022-05-19] VITALS (37 sets, daily range): BP systolic 82–141; BP diastolic 41–98; PULSE 94–113; RESP 20–35; TEMP 36.1–36.6; O2SAT 95–98
[2022-05-19 00:04] LABS: Abs Immature Grans 0.05 10^3/uL (0.0-0.06); HCT 35.1 % (36.0-46.0); HGB 10.8 g/dL (11.2-15.7); MCH 30.3 pg (27.0-33.0); MCHC 30.8 % (32.0-36.0); MCV 99 fL (80-95); MPV 9.7 fL (8.0-11.0); Platelet Count 324 10^3/uL (130-400); RBC 3.56 10^6/uL (3.93-5.22); RDW 13.9 % (11.7-14.6); RDW-SD 50.4 fL; WBC 7.08 10^3/uL (4.4-10.8)
[2022-05-19 00:14] LABS: Source Nasal/Nares
[2022-05-19 00:23] LABS: ALT 22 U/L (14-59); AST 57 U/L (15-37); Absolute Basophil Count 0.07 10^3/uL (0.0-0.2); Absolute Lymphocyte Count 0.42 10^3/uL (1.2-3.4); Absolute Monocyte Count 0.64 10^3/uL (0.1-0.8); Albumin 2.2 g/dL (3.4-5.0); Alkaline Phosphatase 173 U/L (46-116); Anion Gap 10.6 mmol/L (3-11); BUN 45 mg/dL (7-18); Bands % 4; Bilirubin, Total 0.4 mg/dL (0.2-1.0); CO2 24.4 mmol/L (21.0-32.0); CREATININE 2.3 mg/dL (0.55-1.02); Chloride 101 mmol/L (98-107); Diff Comment Manual Differential; Estimated GFR 22.17 (mL/min/1.73m2); Magnesium 2.3 mg/dL (1.8-2.4); Metamyelocytes % 2; Sodium 136 mmol/L (136-145); Total Protein 6.8 g/dL (6.4-8.2); Troponin I < 50 ng/L (<or=60)
[2022-05-19 00:24] LABS: Absolute Neutrophil Count 5.81 10^3/uL (1.2-6.7)
[2022-05-19 00:28] LABS: Glucose 29 mg/dL (74-106)
[2022-05-19 00:29] LABS: Potassium 6.7 mmol/L (3.5-5.1)
[2022-05-19 00:35] LABS: D-Dimer 3064 ng/mlFEU (<500)
[2022-05-19 00:44] LABS: COVID-19 PCR Negative (Negative)
[2022-05-19] MEDS: Dextrose 50%-Water 25 GM/50 ML SYR IVP ×2 (00:45→15:21)
--- NOTE | 2022-05-19 00:45 | RT.EKG_ITS ---
APPROVED REPORT Exam: Resting ECG Reason for Exam: sob Patient Location: E HR:108 bpm ECG Measurements Heart Rate 108 AXIS MD 141 P 61 QRSd 78 QRS -20 QT 315 T 45 QTc 421 Conclusion Sinus tachycardia...rate> 99 Inferior infarct, old...Q >35mS, II III aVF. Sinus. No STEMI. I have reviewed and interpreted ECG and agree with software generated interpretation.
[2022-05-19 00:50] LABS: NT-proBNP 10234 pg/mL (<300)
[2022-05-19] MEDS: Normal Saline 250 ML 500 ML IV (00:50)
[2022-05-19] MEDS: Sodium Zirconium Cyclosilicate 10 GM PKT PO ×3 (01:35→13:36)
[2022-05-19] MEDS: CEFEPIME 2 GM in Normal Saline 100 ML IVPB (01:44)
[2022-05-19] MEDS: Enoxaparin 40 MG/0.4 ML SYR 35 MG SC (01:54)
[2022-05-19] MEDS: Benzonatate 100 MG CAP (02:20)
[2022-05-19] MEDS: AZITHROMYCIN 500 MG in Normal Saline 250 ML 250 MG IVPB (02:30)
--- NOTE | 2022-05-19 03:04 | DI.VRAD_ITS ---
PROCEDURE INFORMATION: Exam: XR Chest Exam date and time: 05/19/2022 12:27 AM Age: 71 years old Clinical indication: Other: Cough, SOB, R/O acute disease TECHNIQUE: Imaging protocol: Radiologic exam of the chest. Views: 1 view. COMPARISON: CR XR CHEST 2V PA LATERAL 04/30/2022 12:18 PM FINDINGS: Tubes, catheters and devices: There are surgical clips overlying the upper abdomen. Lungs: There are coarse interstitial markings, which are unchanged from multiple previous studies. However, there is a focal airspace opacity in the left mid to lower lung field, which likely represents pneumonia. Pleural spaces: Unremarkable. No pleural effusion. No pneumothorax. Heart/Mediastinum: Unremarkable. No cardiomegaly. Bones/joints: Unremarkable. IMPRESSION: Left pneumonia, superimposed on chronic interstitial disease. Dictated and Authenticated by: Rakesh Álvarez MD. Ordering:ISAAC Nugent MD
--- NOTE | 2022-05-19 05:43 | W.PM.HP.N ---
Date of service: 05/19/22 Time of Service: 05:43 Assessment and Plan Assessment and plan (1) Pneumonia: Status: Acute Assessment and plan: With patient's acute symptoms and focal findings in CXR we are treating for pneumonia. Started on cefepime which is a reasonable choice given her chronic lung disease. Will compliment with doxycycline for atypical coverage as she is getting other QT prolonging agents. She is COVID negative. I don't think she is high risk for MRSA or that the presentation suggests this so will not add this coverage. (2) Interstitial pneumonia with autoimmune features: Status: Acute Assessment and plan: It is unclear how much of her shortness of breath and chest XR findings are infectious and how much are her autoimmune ILD. Her oxygenation is reassuring. I will treat with steroids given her history as well as antibiotics as above. Will give PPI while on steroids given anticoagulation and nutrition status she is high risk for GI bleed. I have requested a consult from Dr. Soto if she is able. (3) Hypoglycemia: Status: Acute Assessment and plan: Acute decrease in oral intake in setting of chronic malnutrition, which is being treated. She has stabilized since coming to the floor. (4) Acute kidney injury: Status: Acute Assessment and plan: Secondary to dehydration. However with newly high elevated BNaP, being careful about hydration. Holding ARB. Lung rales are difficult to interpret, but she does have elevated JVP and is clearly at risk for right heart failure. Follow and titrate fluids. (5) Hyperkalemia: Status: Acute Assessment and plan: Secondary to ARPIT in the setting of chronic therapy with aldosterone antagonist and ARB as well as potassium supplumentation. She did not have EKG changes, reflecting this likely developed acutely. Of note, she was discharged on new potassium chloride supplumentation after February admission. Treating with potassium binders as well as gentle fluids with prn furosemide. (6) Elevated d-dimer: Status: Acute Assessment and plan: She is also at high risk for VTE and with elevated d-dimer we will anticoagulate until we are able to get a CTA if GFR improves or a V-Q scan. (7) Thrush: Status: Acute Assessment and plan: This may be contributing to her not eating. I am concerned about esophogeal invovlement. Will treat with fluconazole starting IV. 200mg given her size. (8) Discharge planning issues: Status: Acute Assessment and plan: Ms Suarez is followed by palliative care given progression of her lung disease and weight loss. She was considering hospice but has not made that decision. Her code status should be re-evaluated as she is unlikely to do well after a code. I have consulted the palliative service. 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 She states initially she had some runny nose but this resolved. Cough is productive of phlegm, no blood in sputum. She has a little sore throat and she lost her voice. She hasn't been eating or drinking much because she has no appetite, some nausea but not severe. no vomiting or diarrhea. No chest pain except when she coughs. No abdominal pain. She doesn't remember the SOB coming on acutely. Since getting fluids and antibiotics in the ED, she feels better. She is thirsty and thinks she may be able to eat something. Of note she was hypokalemic on last admission in February and started on potassium chloride supplementation. No recent medication changes. Review of Systems Constitutional Constitutional: Reports anorexia, Denies chills, Denies fever(s), Reports headache(s) (Had a LOVELL earlier, better now), Reports lethargy, Reports poor appetite and Denies weakness Eyes Eyes: Denies change in vision and Denies irritation ENT Ears, Nose, Mouth, and Throat: Denies dizziness, Reports headache(s) (Had a LOVELL earlier, better now), Denies nasal congestion, Denies nasal discharge, Reports odynophagia (some discomfort swallowing), Denies sinus pressure and Denies sore throat Cardiovascular Cardiovascular: Denies chest pain at rest, Denies edema, Denies palpitations and Denies orthopnea Respiratory Respiratory: Reports as per HPI, Reports cough, Denies wheezing and Reports other Gastrointestinal Gastrointestinal: Denies abdominal pain, Denies melena, Denies hematochezia, Denies change in bowel habits, Denies heartburn, Reports odynophagia (some discomfort swallowing) and Denies vomiting Genitourinary Genitourinary: Denies hematuria and Denies dysuria Musculoskeletal Comments: no new joint pain Integumentary/Breasts Skin/Breast: Denies rash and Denies skin ulcer Neurologic Neurologic: Denies confusion, Denies dizziness, Reports headache(s) (Had a LOVELL earlier, better now), Denies localized weakness, Denies sensory deficit and Denies weakness Psychiatric Psychiatric: Denies confusion and Denies mood swings Endocrine Endocrine: Denies palpitations Hematologic/Lymphatic Hematologic/Lymphatic: Denies easy bleeding Allergic/Immunologic Allergic/Immunologic: Denies wheezing PFSH All Active Problems (Updated 05/19/22 @ 06:25 by Elder Hardy) Thrush (Acute) Discharge planning issues (Acute) Elevated d-dimer (Acute) Hypoglycemia (Acute) Pneumonia (Acute) Acute kidney injury (Acute) Hyperkalemia (Acute) Dehydration (Acute) Respiratory failure with hypoxia (Acute) Interstitial pneumonia with autoimmune features (Acute) Palliative care encounter (Acute) Hypomagnesemia (Acute) Hip pain (Chronic) SOB (shortness of breath) (Acute) Medical History Acute UTI Arthritis of left wrist Calcium ureterolithiasis Chronic back pain Diffuse interstitial pulmonary fibrosis Essential tremor Fibromyalgia Hypertension Osteoarthritis Pre-diabetes Pulmonary fibrosis Patient had previous work-up by Dr. Ferrara in [facility] in March 2018. Patient reports that her PFTs did not show underlying COPD, patient has a follow-up with Dr. Giron in February 16, 2019 F/U with with Dr. Woodard. Has supplemental O2 when needed (1L) Renal stones Stress at home Stroke Stroke 11/24/21-pt. stated it was an acute stroke, f/u Dr. Anderson and stated she no longer needed to follow up with her, she takes a baby aspirin 81mg everyday for prevention Surgical History Hx of cataract surgery Hx of ultrasound guided needle biopsy of lung S/P cholecystectomy S/P gastric bypass S/P hernia repair S/P hysterectomy Family History Mother Stroke Maternal Grandmother Stroke Maternal Uncle Stroke Social History Smoking/Tobacco Use Status: Never Second Hand Exposure: Yes (Secondary to her parents as well as ) Smoking risk assessment performed?: Yes Alcohol Intake: never Drug use: Never Substance use type: does not use Household members: family and children Housing: other Details: moble home Number of Children: 5 number of grandchildren: 8 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 [employer] Pets and animals: Yes Pets and animals: dog(s) Current gender identity: female What is your relationship status?: Panel score (0-1 are the most socially isolated patients): 0 What type of physical activity do you participate in: walking Frequency: daily Seatbelt use: always Do you feel safe at home: Yes Do you feel safe in your relationship?: Yes History History 4 Para Hx # Term Pregnancies 4 Multiple births Hx # Pregnancies Ectopic pregnancies AB induced Hx Number of Living Children AB spontaneous Meds Allergies and Home Medications Allergies Allergy/AdvReac Type Severity Reaction Status Date / Time Sulfa (Sulfonamide Allergy Severe Anaphylaxis Unverified 05/19/22 00:09 Antibiotics) levofloxacin Allergy Intermediate Other (See Unverified 05/19/22 00:09 Comment) Home Medications Medication Instructions Recorded Confirmed Type aspirin 81 mg tablet,delayed 81 mg PO DAILY #30 tabs 11/24/20 05/19/22 Rx release benzonatate 100 mg capsule 100 mg PO TID PRN 11/24/20 05/19/22 History fluticasone propionate 50 2 spray intranasal DAILY PRN 11/24/20 05/19/22 History mcg/actuation nasal spray,suspension megestrol 625 mg/5 mL (125 mg/mL) 5 ml PO DAILY 11/24/20 05/19/22 History oral suspension atorvastatin 10 mg tablet 10 mg PO QHS #90 tabs 01/31/21 05/19/22 Rx food supplemt, lactose-reduced 240 ml PO TID 03/12/22 05/19/22 History multivitamin with minerals 1 cap PO DAILY 03/12/22 05/19/22 History vitamin B complex 1 tab PO DAILY 03/12/22 05/19/22 History Oxygen 03/20/22 04/26/22 History albuterol sulfate 90 mcg/actuation 2 puff inhalation Q6H PRN 03/20/22 05/19/22 History aerosol inhaler mycophenolate mofetil 500 mg tablet 1,000 mg PO BID 03/20/22 05/19/22 History nintedanib 150 mg capsule (Ofev) 150 mg PO BID #90 caps 03/20/22 05/19/22 Rx oxycodone 5 mg tablet 5 mg PO HS PRN pain 03/20/22 05/19/22 History potassium chloride 20 mEq 40 meq PO DAILY 03/20/22 05/19/22 History tablet,extended release(part/cryst) tramadol 50 mg tablet 50 mg PO TID 03/20/22 05/19/22 History fluticasone propionate 45 2 puff inhalation BID #12 grams 04/12/22 05/19/22 Rx mcg-salmeterol 21 mcg/actuation HFA inhaler (Advair HFA) furosemide 20 mg tablet 20 mg PO DAILY 04/24/22 05/19/22 History xrshpw-tpcxsiex-onylgsj 1 cap PO TID 04/24/22 05/19/22 History 4,000-25,000-20,000 unit capsule,delayed rel loperamide 2 mg tablet 2 mg PO Q6H PRN 04/24/22 05/19/22 History magnesium oxide 800 mg PO BID 04/24/22 05/19/22 History ondansetron HCl 4 mg tablet 4 mg PO Q6H 04/24/22 05/19/22 History spironolactone 25 mg tablet 25 mg PO DAILY 04/24/22 05/19/22 History ergocalciferol (vitamin D2) 25,000 50,000 unit PO .ONE\WEEK 05/19/22 05/19/22 History unit capsule losartan 25 mg tablet 25 mg PO DAILY 05/19/22 05/19/22 History mometasone-formoterol HFA 100 2 puff inhalation BID 05/19/22 05/19/22 History mcg-5 mcg/actuation aerosol inhaler (Dulera) Exam Narrative Exam Narrative: GEN: Cachectic. Alert and oriented, very pleasant and cooperative. She is able to speak in 2-3 word fragments due to shortness of breath, dry mouth. gives linear history. HEENT: Head atraumatic. Conjunctiva clear, no icterus. PEERL, EOMI. no rhinorrhea. MM dry, OP with red patches posteriorly with white exudate. Neck is supple with no masses or lymphadenopathy, trachea midline LUNGS: increased WOB with any exertion or speaking as above. Diffuse rales, loudest at bases. no wheeze. breath sounds are audible throughout lung garcia. CV: tachycardic but regular, with no murmurs, gallops, or rubs audible. JVP is noted at ~13cm ABD: +BS, soft, NT/ND EXT: no cyanosis, clubbing, or edema. bedsore pads in place MSK: No joint redness or swelling NEURO: CN 2-12 grossly intact. Normal movement of 4 extremities. Speech weak but otherwise normal, normal coordination SKIN: No rashs or open wounds. PSYCH: normal mood and affect Results Imaging Chest x-ray: report reviewed (IMPRESSION: Left pneumonia, superimposed on chronic interstitial disease.) and image reviewed EKG: report reviewed and image reviewed (sinus tachycardia, nl intervals, no peaked T waves, no ST segment abnormalities.) Labs Result diagrams: 05/18/22 23:50 05/18/22 23:50 Labs: Laboratory Results - last 24 hr 05/18/22 05/18/22 05/18/22 23:50 23:50 23:50 WBC 7.08 RBC 3.56 L Hgb 10.8 L Hct 35.1 L MCV 99 H MCH 30.3 MCHC 30.8 L RDW 13.9 Plt Count 324 MPV 9.7 Immature Gran % 0.0 Neutrophils % 78.0 Band Neutrophils % 4 Lymphocytes % 6.0 Monocytes % 9.0 Eosinophils % 0.0 Basophils % 1.0 Metamyelocytes % 2 Nucleated RBC % 0.0 Absolute Neutrophils 5.81 Absolute Lymphocytes 0.42 L Absolute Monocytes 0.64 Absolute Eosinophils 0.00 Absolute Basophils 0.07 D-Dimer 3064 H Sodium 136 Potassium 6.7 H* Chloride 101 Carbon Dioxide 24.4 Anion Gap 10.6 BUN 45 H Creatinine 2.3 H Est GFR (CKD-EPI 2020) 22.17 Glucose 29 L* Calcium 9.0 Magnesium 2.3 Total Bilirubin 0.4 AST 57 H ALT 22 Alkaline Phosphatase 173 H Troponin I < 50 NT-Pro-B Natriuret Pep Total Protein 6.8 Albumin 2.2 L COVID-19 Source SARS-CoV-2 (PCR) 05/18/22 05/19/22 23:50 00:00 WBC RBC Hgb Hct MCV MCH MCHC RDW Plt Count MPV Immature Gran % Neutrophils % Band Neutrophils % Lymphocytes % Monocytes % Eosinophils % Basophils % Metamyelocytes % Nucleated RBC % Absolute Neutrophils Absolute Lymphocytes Absolute Monocytes Absolute Eosinophils Absolute Basophils D-Dimer Sodium Potassium Chloride Carbon Dioxide Anion Gap BUN Creatinine Est GFR (CKD-EPI 2020) Glucose Calcium Magnesium Total Bilirubin AST ALT Alkaline Phosphatase Troponin I NT-Pro-B Natriuret Pep 80340 H Total Protein Albumin COVID-19 Source Nasal/Nares SARS-CoV-2 (PCR) Negative Last Vital Signs Temp 36.3 C L 05/19/22 02:47 Pulse 113 H 05/19/22 02:47 Resp 24 05/19/22 02:47 BP 113/77 05/19/22 02:47 Pulse Ox 96 05/19/22 02:47
[2022-05-19] MEDS: methylPREDNISolone SUCC 125 MG VIAL IVP ×2 (06:28→13:36)
[2022-05-19] MEDS: Pantoprazole 40 MG VIAL IVP (08:28)
[2022-05-19] MEDS: FLUCONAZOLE 200 MG/100 ML BAG 100 MG IVPB (08:30)
[2022-05-19] MEDS: Benzonatate 100 MG CAP PO (08:30)
[2022-05-19] MEDS: Vitamins B Comp w/C TAB 1 TAB PO (08:30)
[2022-05-19] MEDS: Aspirin E.C. 81 MG TABEC PO (08:30)
[2022-05-19] MEDS: Furosemide 20 MG TAB PO (08:30)
--- NOTE | 2022-05-19 08:30 | PHA.REVIEW2 ---
Pharmacy Admission Review - Admission Clinical Review (Last Reviewed 05/19/22 @ 05:46 by Elder Hardy) Thrush (Acute) Discharge planning issues (Acute) Elevated d-dimer (Acute) Hypoglycemia (Acute) Pneumonia (Acute) Acute kidney injury (Acute) Hyperkalemia (Acute) Dehydration (Acute) Interstitial pneumonia with autoimmune features (Acute) Sulfa (Sulfonamide Antibiotics) Allergy (Severe, Unverified 05/19/22 00:09) Anaphylaxis levofloxacin Allergy (Intermediate, Unverified 05/19/22 00:09) Other (See Comment) Resuscitation Status Full Code Height 5 ft Weight 35.2 kg - Renal Dosing Renal Dosing: BUN 45 mg/dL (7-18) H 05/18/22 23:50 Creatinine 2.3 mg/dL (0.55-1.02) H 05/18/22 23:50 - Anticoagulation Anticoagulation: Hgb 10.8 g/dL (11.2-15.7) L 05/18/22 23:50 Hct 35.1 % (36.0-46.0) L 05/18/22 23:50 Plt Count 324 10^3/uL (130-400) 05/18/22 23:50 Creatinine 2.3 mg/dL (0.55-1.02) H 05/18/22 23:50 - Relevant Labs Sodium 136 mmol/L (136-145) 05/18/22 23:50 Potassium 6.7 mmol/L (3.5-5.1) H* 05/18/22 23:50 Chloride 101 mmol/L (98-107) 05/18/22 23:50 Magnesium 2.3 mg/dL (1.8-2.4) 05/18/22 23:50 - DM Control DM Control: Glucose 29 mg/dL (74-106) L* 05/18/22 23:50 Finger Stick Blood Glucose 91 Finger Stick Blood Glucose 91 Finger Stick Blood Glucose 115 Finger Stick Blood Glucose 115 - Cardiac Review Cardiac Review: Troponin I < 50 ng/L (<or=60) 05/18/22 23:50 NT-Pro-B Natriuret Pep 40776 pg/mL (<300) H 05/18/22 23:50
[2022-05-19] MEDS: Fluticasone NASAL SPRAY 16 GM BTL NS (09:12)
[2022-05-19 10:08] LABS: Anion Gap 10.9 mmol/L (3-11); BUN 51 mg/dL (7-18); CO2 21.1 mmol/L (21.0-32.0); CREATININE 2.3 mg/dL (0.55-1.02); Calcium 8.5 mg/dL (8.5-10.1); Chloride 103 mmol/L (98-107); Estimated GFR 22.17 (mL/min/1.73m2); Glucose 73 mg/dL (74-106); Sodium 135 mmol/L (136-145)
[2022-05-19 10:14] LABS: Potassium 6.3 mmol/L (3.5-5.1)
[2022-05-19] MEDS: Normal Saline Flush 10 ML SYR ×5 (10:50→19:24)
--- NOTE | 2022-05-19 12:19 | W.ANESVAS ---
Midline Placement Date Performed: 05/19/22 Procedure Time: 12:02 Requesting Provider: Elder Hardy Procedure Location: Med/Surg Sedation Given (Indicate Dose Given): No Sedation given Patient Mental Status: Awake Sterility: Hand Hygiene, Surgical Cap, Surgical Mask, Sterile Gloves and Chlorhexidine Laterality: Left Insertion Site: Basilic Midline Device: PowerGlide Pro 20G Catheter Length: 8 cm Midline Procedure Procedure: 1% Lidocaine to skin and subcutaneous tissue with 25g needle, Vessel accessed with catheter over needle, Guidewire placed with ease, Catheter placed without resistance and Guidewire removed Dressing: Tegaderm Applied Blood Return: Present Flushes: Easily Ultrasound: Sterile probe cover and gel used Ultrasound Image Saved?: Yes Number of Attempts (See previous attempts in note section): 1 Procedure Tolerated: No Complications and Patient tolerated well Procedure Outcome: Successful Performed By: Rakesh Duenas
[2022-05-19 12:34] LABS: HCT 32.6 % (36.0-46.0); HGB 10.1 g/dL (11.2-15.7); MCH 30.9 pg (27.0-33.0); MCV 100 fL (80-95); MPV 9.8 fL (8.0-11.0); Platelet Count 287 10^3/uL (130-400); RBC 3.27 10^6/uL (3.93-5.22); RDW 14.1 % (11.7-14.6); RDW-SD 51.3 fL; WBC 8.86 10^3/uL (4.4-10.8)
[2022-05-19 13:02] LABS: Anion Gap 9.5 mmol/L (3-11); BUN 53 mg/dL (7-18); CO2 23.5 mmol/L (21.0-32.0); CREATININE 2.4 mg/dL (0.55-1.02); Calcium 8.4 mg/dL (8.5-10.1); Chloride 104 mmol/L (98-107); Estimated GFR 21.06 (mL/min/1.73m2); Glucose 73 mg/dL (74-106); Sodium 137 mmol/L (136-145)
[2022-05-19 13:08] LABS: Potassium 6.7 mmol/L (3.5-5.1)
[2022-05-19 13:17] LABS: PTT Activated 33.4 sec (21.0-27.5)
[2022-05-19] MEDS: Albuterol/Ipratropium 3 ML UPD VIAL UPD (14:19)
[2022-05-19] MEDS: Furosemide 40 MG/4 ML VIAL IVP (14:19)
[2022-05-19] MEDS: CALCIUM GLUCONATE in NaCl 1 GM/50 ML BAG IVPB (14:27)
[2022-05-19] MEDS: Insulin REGULAR-Human 100 UNITS/ML UNIT IV (15:16)
[2022-05-19] MEDS: Heparin 5,000 UNITS/ML VIAL 5000 UNITS SC (16:33)
--- NOTE | 2022-05-19 17:01 | PDOC.CMIN ---
- If Service Date Differs Date of service: 05/19/22 Time of Service: 17:04 Care Management Initial Assess REASON FOR HOSPITALIZATION:: pneumonia PAST MEDICAL HISTORY/PAST SURGICAL HISTORY:: All Active Problems. Thrush (Acute). Discharge planning issues (Acute). Elevated d-dimer (Acute). Hypoglycemia (Acute). Pneumonia (Acute). Acute kidney injury (Acute). Hyperkalemia (Acute). Dehydration (Acute). Respiratory failure with hypoxia (Acute). Interstitial pneumonia with autoimmune features (Acute). Palliative care encounter (Acute). Hypomagnesemia (Acute). Hip pain (Chronic). SOB (shortness of breath) (Acute). Medical History. Acute UTI. Arthritis of left wrist. Calcium ureterolithiasis. Chronic back pain. Diffuse interstitial pulmonary fibrosis. Essential tremor. Fibromyalgia. Hypertension. Osteoarthritis. Pre-diabetes. Pulmonary fibrosis. Patient had previous work-up by Dr. Ferrara in [facility] in March 2018. Patient reports that her PFTs did not show underlying COPD, patient has a follow-up with Dr. Giron in February 16, 2019. F/U with with Dr. Woodard. Has supplemental O2 when needed (1L). Renal stones. Stress at home. Stroke. Stroke. 11/24/21-pt. stated it was an acute stroke, f/u Dr. Anderson and stated she no longer needed to follow up with her, she takes a baby aspirin 81mg everyday for prevention. Surgical History. Hx of cataract surgery. Hx of ultrasound guided needle biopsy of lung. S/P cholecystectomy. S/P gastric bypass. S/P hernia repair. S/P hysterectomy PREVIOUS FUNCTIONAL STATUS/SOCIAL/FAMILY SUPPORTS:: Ashley lives in a mobile home in [facility] with her daughter Marimar. She has a total of 5 children - 3 girls and 2 boys. Ashley was previously independent at baseline and does all of her own shopping, housework and personal care and continues to drive. 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 Ashley is , having lost her to lung cancer about 12 years ago. Ashley is currently in rehab at the [facility]. CURRENT FUNCTIONAL STATUS:: Ashley was sitting up in bed when CM met with her. She was on O2, and stated that it is hard for her to talk much currently, due to being short of breath. She had her lunch tray in front of her, but did not appear to have eaten much. CM opened her jello, at her request. She stated that things are going well at the [facility]. Her discharge plan will be to return to the [facility] once she is medically cleared. Palliative care has been ordered, as per report, she has declined significantly from her baseline. CM will continue to follow. ADVANCE DIRECTIVES:: Ashley states that she has Advanced Directives but that they are filed in [place], not [facility]. She identified her daughter Kala as her HCA. Has patient been provided with info about the portal/API?: Yes Did the patient sign up for the portal?: No CODE STATUS:: Full Code INSURANCE COVERAGE / FINANCIAL ISSUES:: Medicaid. Medicare CURRENT HOME/COMMUNITY SERVICES/EQUIPMENT:: Ashley is currently residing at the [facility], where her ADL's are supported. PRIMARY CARE PHYSICIAN:: Rober Cho POTENTIAL DISCHARGE NEEDS:: Follow up with PCP and discharge plan of care PATIENT/FAMILY EDUCATION NEEDS:: Review of discharge instrutions, follow up plan, limitations and Ask Me Three. ANTICIPATED BARRIERS TO DISCHARGE:: None. TRANSPORTATION:: via private vehicle with family vs RCT w/c van PLAN:: Ashley will likely return to the [facility] for continued rehab. She will follow up with her community providers and discharge plan of care and transport with family. CM will continue to support Ashley and her family and assess for ongoing discharge needs. Children: Kala - HCA . Dona- . Melquiades - . Marimar - daughter Ashley lives with - . CM will continue to follow.
--- NOTE | 2022-05-19 18:05 | W.PM.PROGNOT ---
Date of Service Date of service: 05/19/22 Time of Service: 18:06 Assessment and Plan Assessment and plan (1) Comfort measures only status: Status: Acute Assessment and plan: after family meeting with patient and son/daughter in law comfort measures instituted. patient has been declining today and is not expected to recover from this illness despite ongoing treatment. will remain comfort care only. family to stay at bedside. clergy visit declined. discussed with Dr Roper Subjective Subjective Interval history since last seen: patient with rapid decline today. denies pain but called to room by family and wishes are for comfort care. with shared decision making wishes for comfort care initiated. Exam Const General: frail appearing and ill appearing acutely Nutritional Appearance: cachectic Orientation: alert, awake and oriented x3 HENMT Face and sinus: dry mucous membranes Resp Effort & Inspection: no audible wheezes, no cough, labored and tachypneic Neuro General: patient alert, patient awake and patient oriented x3 Extrem General: normal to inspection and no pedal edema Objective Last Vital Signs Temp 36.4 C L 05/19/22 15:04 Pulse 95 H 05/19/22 16:05 Resp 20 05/19/22 15:04 BP 138/64 05/19/22 15:04 Pulse Ox 98 05/19/22 15:04 Laboratory Results - last 24 hr 05/18/22 05/18/22 05/18/22 23:50 23:50 23:50 WBC 7.08 RBC 3.56 L Hgb 10.8 L Hct 35.1 L MCV 99 H MCH 30.3 MCHC 30.8 L RDW 13.9 Plt Count 324 MPV 9.7 Immature Gran % 0.0 Neutrophils % 78.0 Band Neutrophils % 4 Lymphocytes % 6.0 Monocytes % 9.0 Eosinophils % 0.0 Basophils % 1.0 Metamyelocytes % 2 Nucleated RBC % 0.0 Absolute Neutrophils 5.81 Absolute Lymphocytes 0.42 L Absolute Monocytes 0.64 Absolute Eosinophils 0.00 Absolute Basophils 0.07 APTT D-Dimer 3064 H Sodium 136 Potassium 6.7 H* Chloride 101 Carbon Dioxide 24.4 Anion Gap 10.6 BUN 45 H Creatinine 2.3 H Est GFR (CKD-EPI 2020) 22.17 Glucose 29 L* Calcium 9.0 Magnesium 2.3 Total Bilirubin 0.4 AST 57 H ALT 22 Alkaline Phosphatase 173 H Troponin I < 50 NT-Pro-B Natriuret Pep Total Protein 6.8 Albumin 2.2 L COVID-19 Source SARS-CoV-2 (PCR) 05/18/22 05/19/22 05/19/22 23:50 00:00 08:27 WBC RBC Hgb Hct MCV MCH MCHC RDW Plt Count MPV Immature Gran % Neutrophils % Band Neutrophils % Lymphocytes % Monocytes % Eosinophils % Basophils % Metamyelocytes % Nucleated RBC % Absolute Neutrophils Absolute Lymphocytes Absolute Monocytes Absolute Eosinophils Absolute Basophils APTT D-Dimer Sodium 135 L Potassium 6.3 H* Chloride 103 Carbon Dioxide 21.1 Anion Gap 10.9 BUN 51 H Creatinine 2.3 H Est GFR (CKD-EPI 2020) 22.17 Glucose 73 L Calcium 8.5 Magnesium Total Bilirubin AST ALT Alkaline Phosphatase Troponin I NT-Pro-B Natriuret Pep 87780 H Total Protein Albumin COVID-19 Source Nasal/Nares SARS-CoV-2 (PCR) Negative 05/19/22 05/19/22 05/19/22 12:29 12:32 12:50 WBC 8.86 RBC 3.27 L Hgb 10.1 L Hct 32.6 L MCV 100 H MCH 30.9 MCHC 31.0 L RDW 14.1 Plt Count 287 MPV 9.8 Immature Gran % Neutrophils % Band Neutrophils % Lymphocytes % Monocytes % Eosinophils % Basophils % Metamyelocytes % Nucleated RBC % Absolute Neutrophils Absolute Lymphocytes Absolute Monocytes Absolute Eosinophils Absolute Basophils APTT 33.4 H D-Dimer Sodium 137 Potassium 6.7 H* Chloride 104 Carbon Dioxide 23.5 Anion Gap 9.5 BUN 53 H Creatinine 2.4 H Est GFR (CKD-EPI 2020) 21.06 Glucose 73 L Calcium 8.4 L Magnesium Total Bilirubin AST ALT Alkaline Phosphatase Troponin I NT-Pro-B Natriuret Pep Total Protein Albumin COVID-19 Source SARS-CoV-2 (PCR)
[2022-05-19] MEDS: MORPHine 4 MG/ML SYR 2 MG IV/SC (20:49)
[2022-05-20] MEDS: MORPHine 4 MG/ML SYR 2 MG IV/SC ×4 (00:44→09:09)
[2022-05-20] MEDS: Normal Saline Flush 10 ML SYR ×2 (00:44→01:32)
--- NOTE | 2022-05-20 00:49 | NUR.NOTE ---
Nursing Note: PT family states pt increased work of berathing. reviewed morphine order and explain intended side effect of slower deeper breaths, less anxiety/distress. family request morphine given at this time. will monitor and report to nursing how pt did after dose.
[2022-05-20] MEDS: LORazepam 2 MG/ML VIAL 0.5 MG IV/SC ×3 (01:31→09:10)
[2022-05-20] MEDS: Normal Saline Flush 10 ML SYR IVP ×2 (03:14→06:48)
--- NOTE | 2022-05-20 12:49 | CMPROGNOTE_ITS ---
- If Service Date Differs Date of service: 05/20/22 Time of Service: 12:49 Care Management Progress Note NONI met with Ashley and her daughter, Dona, who was in the room visiting. Ashley appeared comfortable, although her breathing was labored. Dona stated that her brother, Alexis, had left early this morning, but would be returning soon. NONI provided resources for local hotels, at Dona's request. NONI was notified that Ashley passed later this morning. NONI received a call from Kala, her daughter who was previously listed as her HCA (this changed to Alexis in February 2022). CM provided final arrangement information to both Alexis and Kala. Kala called and informed NONI that the family has decided on the [facility] for arrangements. CM informed the RN Coordinator. NONI will continue to provide support to Ashley's family, as needed during this difficult time.
--- NOTE | 2022-05-20 12:57 | EXPE_ITS ---
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 Her work up in the ED showed acute on chronic kidney failure with hyperkalemia and a pneumonia. she was started on IV antibiotics and her hyperkalemia treated with insulin and glucose and she was started on lokelma. She was admitted to the hospitalist services and despite treatment for her hyperkalemia, her potassium began to rise again, back to 6.7. Her respiratory status remained poor for moderate to severe respiratory distress with any movement. Her family was at bedside and concerned that ongoing treatment would be against her wishes as she is not responding and rapidly declining. She agreed with comfort focused care. Place on routine comfort measures and succumb to her illness at 10:[address] Roper notified. Discharge Data Date/Time: 05/20/22 10:20 Discharge Sum: Diag Contributing Factors (1) Comfort measures only status:
== END 2022-05-20 10:25 | disposition expired ==
LOC: ER 05-19 01:34 → MS 05-19 20:43
PROVIDERS: Internal Medicine; Admitting Provider Family Medicine; Emergency Provider Physician Assistant; PCP Family Medicine; Visit Provider Family Medicine
DX: J18.9 Pneumonia, unspecified organism (principal); J84.9 Interstitial pulmonary disease, unspecified; J96.01 Acute respiratory failure with hypoxia; N17.9 Acute kidney failure, unspecified; E87.5 Hyperkalemia; D89.89 Other specified disorders involving the immune mechanism, not elsewhere classified; N18.9 Chronic kidney disease, unspecified; Z51.5 Encounter for palliative care; R94.31 Abnormal electrocardiogram [ECG] [EKG]; E86.0 Dehydration; Z66 Do not resuscitate; Z99.81 Dependence on supplemental oxygen; R64 Cachexia; Z68.1 Body mass index [BMI] 19.9 or less, adult; I25.2 Old myocardial infarction; E46 Unspecified protein-calorie malnutrition; E16.2 Hypoglycemia, unspecified; R79.1 Abnormal coagulation profile; B37.0 Candidal stomatitis; E83.42 Hypomagnesemia; R73.03 Prediabetes; M79.7 Fibromyalgia; G25.0 Essential tremor; Z86.73 Personal history of transient ischemic attack (TIA), and cerebral infarction without residual deficits
CPT/HCPCS: 36415; 76942; 80048; 80053; 85027; 87635; 93005; 94640; 94644; 96361; 96365; 96366; 96367; 96372; 96374; 96375; 96376; 99285; J1650; 71045; 83735; 83880; 84132; 84484; 85025; 85379; 85730; 93010; 99225; G0378; J0456; J1450; J1644; J1940; J2060; J2270; J2930; J7611; J7620; J9999